=== PATIENT | female | born 1970 | race Caucasian/White ===

== ENCOUNTER 2019-12-05 14:59 | Outpatient (CLI) | payer OTHER, SELFPAY ==
--- NOTE | ~2019-12-05 | MM_ITS ---
EXAMINATION: MM screening hilario BI w kevin HISTORY: Screening mammogram, family history of breast cancer in her mother and sister. TECHNIQUE: Craniocaudal and mediolateral oblique 3-D tomosynthesis images were obtained and synthetic 2-D images were generated. CAD analysis was submitted and interpreted. COMPARISON: 02/25/2019, 05/15/2017, 05/13/2016 BREAST PARENCHYMAL COMPOSITION: The breasts are almost entirely fatty. FINDINGS: RIGHT BREAST: There is possible architectural distortion middle third of the upper outer quadrant of the breast. LEFT BREAST: There is no evidence of suspicious mass, calcification, or architectural distortion to s uggest malignancy. There has been no significant interval change. IMPRESSION: 1. Possible right breast architectural distortion. 2. Additional mammographic views and possible breast ultrasound are recommended. BI-RADS Category 0: Incomplete: Needs additional imaging evaluation. Reviewed, dictated and finalized at location A. IMPRESSION: 1. Possible right breast architectural distortion. 2. Additional mammographic views and possible breast ultrasound are recommended . BI-RADS Category 0: Incomplete: Needs additional imaging evaluation.
--- NOTE | ~2019-12-05 | XR_ITS ---
EXAMINATION: XR knee LT min 4V DATE: 12/05/2019 19:33 INDICATION: Left knee pain TECHNIQUE: Weight bearing anteroposterior and Sun, sunrise, and flexed lateral views of the lef t knee were obtained COMPARISON: None. FINDINGS: Alignment is normal. No fracture. Joint spaces appear relatively preserved but with tiny marginal os teophytes along the patella and medial lateral tibial plateaus consistent with at least minimal trico mpartmental osteoarthritis. No left knee joint effusion. Soft tissues are unremarkable. IMPRESSION: 1. Minimal tricompartmental osteoarthritis at the left knee. No evident acute osseous abnormality. Reviewed, dictated and finalized at location A. IMPRESSION: 1. Minimal tricompartmental osteoarthritis at the left knee. No evident acute o sseous abnormality.
== END 2019-12-05 15:00 | disposition home or self-care (01) ==
LOC: ANHIMG 15:02
PROVIDERS: PCP Family Medicine; Visit Provider Family Medicine
DX: Z12.31 Encounter for screening mammogram for malignant neoplasm of breast (principal); M25.562 Pain in left knee; R92.8 Other abnormal and inconclusive findings on diagnostic imaging of breast
CPT/HCPCS: 73564; 77063; 77067

== ENCOUNTER 2020-03-17 12:11 | Outpatient (CLI) | payer OTHER, SELFPAY ==
--- NOTE | ~2020-03-17 | MM_ITS ---
EXAMINATION: MM diagnostic mammo unilat RT HISTORY: Possible architectural distortion of the right breast on screening mammogram TECHNIQUE: Additional 3-D tomosynthesis images of the right breast were performed and synthetic 2-D i mages were generated. CAD analysis was submitted and interpreted. COMPARISON: 12/05/2019, 02/25/2019, 05/15/2017 BREAST PARENCHYMAL COMPOSITION: The breasts are almost entirely fatty. FINDINGS: There appears to be subtle persistent architectural distortion in the middle third of the u pper breast on the mediolateral view however this is not definitely identified on the remaining spot compression views. Further evaluation with right breast ultrasound is recommended. IMPRESSION: 1. Possible architectural distortion as described above. 2. Further evaluation with targeted right breast ultrasound is recommended. BI-RADS Category 0: Incomplete: Needs additional imaging evaluation. Reviewed, dictated and finalized at location A.
== END 2020-03-17 12:12 | disposition home or self-care (01) ==
PROVIDERS: PCP Family Medicine; Visit Provider Family Medicine
DX: R92.8 Other abnormal and inconclusive findings on diagnostic imaging of breast (principal)
CPT/HCPCS: 77065

== ENCOUNTER 2020-03-23 13:49 | Outpatient (CLI) | payer OTHER, SELFPAY ==
--- NOTE | ~2020-03-23 | US_ITS ---
US breast RT limited INDICATION: Follow-up right breast asymmetry TECHNIQUE: Dedicated Limited right breast ultrasound COMPARISON: Mammogram dated 03/17/2020 FINDINGS: The right breast is composed of normal heterogeneous echotexture without focal solid or cys tic mass. IMPRESSION: 1: Normal right breast ultrasound. Short-term follow-up diagnostic right mammogram recommended in 3 m [facility]. BI-RADS CATEGORY 3-PROBABLY BENIGN FINDING RECOMMENDATION: Six-month follow-up diagnostic right mammogram recommended. Reviewed, dictated and finalized at location A. IMPRESSION: 1: Normal right breast ultrasound. Short-term follow-up diagnostic right mammog quan recommended in 3 months. BI-RADS CATEGORY 3-PROBABLY BENIGN FINDING RECOMMENDATION: Six-month follow-up diagnostic right mammogram recommended.
== END 2020-03-23 13:50 | disposition home or self-care (01) ==
PROVIDERS: PCP Family Medicine; Visit Provider Family Medicine
DX: R92.8 Other abnormal and inconclusive findings on diagnostic imaging of breast (principal)
CPT/HCPCS: 76642

== ENCOUNTER 2020-04-18 06:47 | Outpatient (NON) | payer OTHER, SELFPAY ==
[2020-04-19 13:10] LABS: SARS-CoV-2 RNA PCR Negative
== END 2020-04-18 06:48 ==
LOC: ANHCOVIDDT 06:55
PROVIDERS: PCP Family Medicine; Visit Provider Family Medicine
DX: Z20.828 Contact with and (suspected) exposure to other viral communicable diseases (principal); R05 Cough
CPT/HCPCS: 87635; C9803; U0003

== ENCOUNTER 2020-09-23 16:17 | Inpatient (IN) | payer OTHER, SELFPAY ==
[2020-09-23] VITALS (7 sets, daily range): BP systolic 117–149; BP diastolic 78–87; PULSE 89–104; RESP 15–22; TEMP 36.1–36.4; O2SAT 94–100; BMI 50.1
--- NOTE | ~2020-09-23 | XR_ITS ---
EXAMINATION: XR chest 2V DATE: 09/23/2020 17:38 INDICATION: Shortness of breath and cough TECHNIQUE: PA and lateral views of the chest are obtained. COMPARISON: None available FINDINGS: The lungs are free of acute opacities. There is no pleural effusion or pneumothorax. The ca rdiomediastinal silhouette is normal. There is mild thoracic spondylosis. IMPRESSION: 1. No acute cardiopulmonary abnormality. Reviewed, dictated and finalized at location A.
--- NOTE | 2020-09-23 16:55 | ECG_ITS ---
Measurements Intervals [place] Rate: 99 P: 64 NV: 133 QRS: 9 QRSD: 104 T: 206 QT: 393 QTc: 506 Interpretive Statements SINUS RHYTHM ATRIAL AND VENTRICULAR PREMATURE COMPLEXES DELAYED PRECORDIAL R/S TRANSITION LEFT VENTRICULAR HYPERTROPHY AND ST-T CHANGE ST-T WAVE ABNORMALITY IN ANTERAOLAT/INF LEADS- CONSIDER ISCHEMIA ABNORMAL ECG Electronically Signed On 09-23-2020 19:16:31 CDT by Demario Pastrana D.O.
--- NOTE | 2020-09-23 16:56 | ED.SOB ---
HPI - SOB/Dyspnea General Chief Complaint: Shortness of Breath/Dyspnea Stated Complaint: sob 1 week, hx asthma Time Seen by Provider: 09/23/20 16:51 Source: patient Mode of arrival: ambulatory Limitations: no limitations History of Present Illness HPI Narrative: Patient is a 50-year-old female complaining of shortness of breath accompanied by cough, nonproductive x1 week. Patient states that her shortness of breath is with exertion. Patient states that she has a history of asthma. Patient denies any chest pain, abdominal pain, nausea, vomiting, diaphoresis, nasal congestion, fever or chills. Related Data Allergies Allergy/AdvReac Type Severity Reaction Status Date / Time aspirin Allergy Unknown Hives Verified 09/23/20 16:33 cephalexin Allergy Unknown Swelling Verified 09/23/20 16:33 naproxen Allergy Hives Verified 09/23/20 16:33 Review of Systems Review of Systems: All systems reviewed & are unremarkable except as noted in HPI and below Constitutional: Constitutional: Denies body ache(s), Denies chills, Denies excessive sweating, Denies fatigue, Denies fever(s), Denies headache(s), Denies lethargy, Denies malaise, Denies weakness and Denies weight loss Eyes: Eyes: Denies blurry vision, Denies change in vision and Denies loss of vision ENT: Denies dizziness, Denies ear discharge, Denies headache(s), Denies lip swelling, Denies epistaxis, Denies nasal congestion, Denies neck pain, Denies throat swelling and Denies tongue swelling Cardiovascular: Cardiovascular: Denies chest pain, Denies chest pain at rest, Denies chest pain with activity, Denies diaphoresis, Denies rapid heart rate, Denies edema, Denies irregular heart rhythm, Denies lightheadedness, Denies palpitations, Denies dyspnea and Denies dyspnea on exertion Respiratory: Respiratory: Denies chest congestion and Denies hemoptysis Gastrointestinal: Gastrointestinal: Denies abdominal pain, Denies melena, Denies hematochezia, Denies diarrhea, Denies nausea, Denies vomiting and Denies hematemesis Musculoskeletal: Musculoskeletal: Denies abnormal gait, Denies deformity, Denies joint swelling, Denies limited range of motion, Denies neck pain and Denies numbness Neurologic: Denies Abnormal speech present, Denies abnormal gait, Denies confusion, Denies dizziness, Denies headache(s), Denies focal weakness, Denies loss of vision, Denies numbness, Denies Other visual disturbances, Denies Sensory deficit (Neuro) and Denies weakness Psychiatric: Psychiatric: Denies confusion, Denies depression, Denies auditory hallucinations, Denies homicidal ideation and Denies suicidal ideation Endocrine: Endocrine: Denies cold intolerance, Denies excessive sweating, Denies fatigue, Denies heat intolerance and Denies palpitations Hematologic/Lymphatic: Hematologic/Lymphatic: Denies easy bleeding and Denies easy bruising Allergic/Immunologic: Allergic/Immunologic: Denies lip swelling, Denies throat swelling and Denies tongue swelling PMFSH Family History Family History Mother Patient's mother is in good health Father Family history of heart disease in male family member before age 55 Patient's father is Other Cerebrovascular accident Family history of arthritis Family history of seizure disorder Social History Social History Smoking status: Never smoker Alcohol intake: never Gender identity (if verbalized by the patient): Female Exam Const: General: cooperative, comfortable, no acute distress, well developed, alert and awake; No confusion Orientation/consciousness: oriented to person, oriented to place, oriented to time, patient oriented x3 and No confusion Limitations: no limitations HENMT: Head: normal to inspection, normocephalic and atraumatic Ears: hearing grossly normal bilaterally, TM normal on the right and TM normal on the left General nos
[2020-09-23] MEDS: IPRATROPIUM BR 0.02% INH SOLN 0.5 MG/2.5 ML VIAL INHALATION (17:08)
[2020-09-23] MEDS: ALBUTEROL SULFATE NEB 2.5 MG/0.5 ML INH 5 MG INHALATION (17:08)
[2020-09-23 17:22] LABS: Alveolar/Arterial O2 Gradient 35.2 mmHg; Base Excess ABG -3.1 mEq/l (+/-2.0); Carboxyhemoglobin 1.3 % THb (0-2.0); Device ROOM AIR; Fractional Inspired Oxygen 21 %; HCO3 ABG 19.1 mEq/l (22.0-26.0); Methemoglobin ABG 0.4 %THb (0-1.5); Oxygen Content ABG 21.1 %vol (16.0-22.0); Oxygen Saturation ABG 96.7 % (95.0-100.0); Oxyhemoglobin 94.3 % THb (90.0-100.0); PCO2 ABG 27.7 mmHg (35.0-45.0); PO2 ABG 81.4 mmHg (80.0-100.0); PO2 FiO2 Ratio Arterial Blood 3.88 %; Site Drawn LEFT BRACHIAL; Total Hemoglobin 15.9 g/dL (12.0-18.0); pH ABG 7.457 (7.350-7.450)
[2020-09-23 18:02] LABS: Basophils Percent Auto 0.3 % (0.2-1.2); Eosinophils Percent Auto 0.1 % (0-4.4); Hematocrit 47.7 % (37.0-47.0); Hemoglobin 15.9 g/dL (12.0-15.0); Immature Granulocyte Absolute 0.02 K/mm3 (0.00-0.031); Immature Granulocyte Percent A 0.2 % (0-0.5); Lymphocytes Absolute Auto 1.22 K/mm3 (0.9-3.2); Lymphocytes Percent Auto 13.9 % (18.3-44.2); Mean Corpuscular HGB Conc 33.3 g/dl (32-36); Mean Corpuscular Hemoglobin 30.9 pg (26-34); Mean Corpuscular Volume 92.6 fl (80-100); Mean Platelet Volume 8.9 fl (7.4-10.4); Monocytes Absolute Auto 0.2 K/mm3 (0.1-0.6); Monocytes Percent Auto 1.9 % (2.6-8.5); Neutrophils Absolute Auto 7.3 K/mm3 (1.3-6.7); Neutrophils Percent Auto 83.6 % (45.5-73.1); Platelet Count Result 273 k/mm3 (150-375); Red Blood Count 5.15 M/mm3 (4.2-5.4); Red Cell Distribution Width 13.4 % (11.5-14.5); White Blood Count 8.8 K/mm3 (4.5-10.0)
[2020-09-23 18:25] LABS: D Dimer 0.47 ug/mL (<0.48)
[2020-09-23] MEDS: methylPREDNISolone SOD SUCC 125 MG VIAL IV PUSH (18:41)
[2020-09-23 18:46] LABS: Anion Gap 8 mmol/L (8-16); Blood Urea Nitrogen 18 mg/dL (7-17); Calcium 9.3 mg/dL (8.4-10.2); Carbon Dioxide 22 mmol/L (22-30); Chloride 109 mmol/L (98-107); Estimated CRCL calculation 57 ml/min; Estimated Glomerular Filt Rate 52; Glucose 121 mg/dL (65-105); Potassium 4.2 mmol/L (3.4-5.0); Sodium 139 mmol/L (137-145)
[2020-09-23 19:08] LABS: NT Pro B Type Natriuretic Pept 11400 PG/ML (5-100); Troponin I 0.085 ng/mL (0.000-0.034)
[2020-09-23] MEDS: ENOXAPARIN 100 MG/ML SYRINGE SUB-Q (19:51)
--- NOTE | 2020-09-23 20:25 | PC.NURSE ---
Called to give report, was told by Yaneli that Allison was in a room and would call me back.
--- NOTE | 2020-09-23 20:55 | ADMGEN ---
This patient, Varun Sanabria, was admitted to IMU Room 200-01. Patient/family oriented to hospital policies and general routines including ID bracelet, bed and alarms, visiting hours, pain management, procedures, bathroom and other care routines, personal items, smoking policy, room service/diet, and visiting hours. Information on how to activate the Rapid Response Team has been discussed. Patient/Family are encouraged to report perceived risks to care and to ask questions if they do not understand what they are told or what they should do. Ina SAHU Arrived [id number]
[2020-09-23] MEDS: FUROSEMIDE INJ 40 MG/4 ML VIAL IV PUSH (22:54)
[2020-09-23 23:10] LABS: Troponin I 0.092 ng/mL (0.000-0.034)
[2020-09-24] VITALS (15 sets, daily range): BP systolic 104–150; BP diastolic 74–98; PULSE 53–100; RESP 16–20; TEMP 35.7–36.7; O2SAT 92–98
--- NOTE | 2020-09-24 | ECHO_ITS ---
Patient Info Name: Varun Sanabria Age: 50 years : 1970 Gender: Female Ht: 61 in Wt: 265 lbs BSA: 2.35 m2 HR: 81 bpm BP: 121 / 94 mmHg Technical Quality: Good Exam Date: 09/24/2020 7:58 AM Exam Location: [facility] Patient Status: Inpatient Admit Date: 09/23/2020 Staff Ordering Physician: Namita Glover DO Access Manager: Coco Ramos RDCS Attending Provider: Namita Glover DO Referring Physician: Adalberto HELTON; Exam Type: CA echo doppler color flow Study Info Indications R06.00 - Dyspnea, unspecified Complete two-dimensional, color flow and Doppler transthoracic echocardiogram is performed. Summary 1. Complete two-dimensional, color flow and Doppler transthoracic echocardiogram is performed. 2. Left ventricular chamber dimension is mildly enlarged. 3. Left ventricular systolic function is severely reduced, estimated at 20-25%. 4. The left ventricular diastolic function is abnormal. 5. E/e' 30.0 is elevated. 6. Right ventricular systolic function is reduced. 7. There is mild aortic valve sclerosis. 8. There is mild aortic valve regurgitation. 9. There is mild mitral valve regurgitation. 10. There is mild to moderate tricuspid valve regurgitation. 11. Mild pulmonary hypertension, estimated pulmonary arterial systolic pressure is 46 mmHg. 12. There is trivial pericardial effusion. Left Ventricle Left ventricular chamber dimension is mildly enlarged. Left ventricular systolic function is severely reduced, estimated at 20-25%. There is no increased left ventricular wall thickness. The left ventricular diastolic function is abnormal. E/e' 30.0 is elevated. Global longitudinal strain is abnormal at -5 %. Right Ventricle Right ventricular chamber dimension is normal. Right ventricular systolic function is reduced. Ventricular Septum Intact interventricular septum visualized by color flow imaging. Left Atria Left atrial chamber dimension is moderately enlarged. Right Atria Right atrial chamber dimension is normal. Atrial Septum Intact interatrial septum visualized by color flow imaging. Aortic Valve The aortic valve is trileaflet. There is mild aortic valve sclerosis. There is no aortic valve stenosis. There is mild aortic valve regurgitation. Pulmonic Valve The pulmonic valve is not well visualized. There is no pulmonic valve stenosis. There is no pulmonic regurgitation. Mitral Valve The mitral valve has normal leaflets. There is no mitral valve stenosis. There is mild mitral valve regurgitation. Tricuspid Valve The tricuspid valve leaflets are normal. There is no significant tricuspid valve stenosis. There is mild to moderate tricuspid valve regurgitation. Mild pulmonary hypertension, estimated pulmonary arterial systolic pressure is 46 mmHg. Pericardium/Pleural There is trivial pericardial effusion. Inferior Vena Cava Normal inferior vena cava with <50% collapse upon inspiration consistent with elevated right atrial pressure, 10 mmHg. Aorta The aortic root size at the sinus of Valsalva is normal. The prox ascending aorta size is normal. Left Ventricular Outflow Tract Name Value Normal LVOT 2D LVOT Diameter 2.0 c
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
[2020-09-24 01:25] LABS: Troponin I 0.075 ng/mL (0.000-0.034)
[2020-09-24 05:49] LABS: Anion Gap 11 mmol/L (8-16); Blood Urea Nitrogen 20 mg/dL (7-17); Calcium 9.6 mg/dL (8.4-10.2); Carbon Dioxide 22 mmol/L (22-30); Chloride 106 mmol/L (98-107); Estimated CRCL calculation 70 ml/min; Estimated Glomerular Filt Rate 58; Glucose 135 mg/dL (65-105); Magnesium 1.6 mg/dL (1.6-2.3); Potassium 3.9 mmol/L (3.4-5.0); Sodium 139 mmol/L (137-145)
--- NOTE | 2020-09-24 06:00 | ECG_ITS ---
Measurements Intervals [place] Rate: 93 P: 64 OH: 144 QRS: 18 QRSD: 109 T: 225 QT: 423 QTc: 527 Interpretive Statements SINUS RHYTHM VENTRICULAR PREMATURE COMPLEX AND FREQUENT ATRIAL PREMATURE COMPLEXES INCOMPLETE LEFT BUNDLE BRANCH BLOCK ST-T WAVE ABNORMALITY IN ANTEROLAT/INF LEADS- CONSIDER ISCHEMIA BASELINE ARTIFACT- I, II, III, AVR, AVL ABNORMAL ECG Electronically Signed On 09-24-2020 9:12:38 CDT by Demario Pastrana D.O.
[2020-09-24] MEDS: ATORVASTATIN 20 MG TABLET PO (08:44)
[2020-09-24] MEDS: ENOXAPARIN 40 MG/0.4 ML SYRINGE SUB-Q (08:44)
[2020-09-24] MEDS: LORATADINE 10 MG TABLET PO (08:44)
[2020-09-24] MEDS: MONTELUKAST SODIUM 10 MG TABLET PO (08:44)
[2020-09-24] MEDS: MAGNESIUM SULF 2 GM/WATER 50ML 2 GM/50 ML BAG IVPB (08:49)
--- NOTE | 2020-09-24 10:13 | PM.CNCAR ---
Assessment and Plan Assessment and plan (1) CHF (congestive heart failure): Qualifiers: Heart failure type: unspecified Heart failure chronicity: acute Qualified Code(s): I50.9 - Heart failure, unspecified Code(s): I50.9 - Heart failure, unspecified Status: Acute Assessment and Plan: new diagnosis. Strong family history for CHF. Chest x-ray shows mild congestion and mild cardiomegaly. Ejection fraction 20-25%. Frequent PVCs on telemetry and nonsustained VT. Patient will benefit from a LifeVest. Start losartan 25 mg daily. Start Coreg 3.125 mg b.i.d.. Increase Lasix to 40 mg IV b.i.d.. 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 Replenish magnesium. (2) Elevated troponin: Code(s): R77.8 - Other specified abnormalities of plasma proteins Status: Acute Assessment and Plan: Demand ischemia from CHF. No chest pain. Eventually will need ischemic evaluation. (3) PVC (premature ventricular contraction): Code(s): I49.3 - Ventricular premature depolarization Status: Acute Assessment and Plan: Frequent PVCs. Restart Coreg. With benefit from LifeVest. History of Present Illness History of Present Illness Consult date/time: Date of service 09/24/20 10:13 Requesting physician: Myles Fagan MD Consult reason: congestive heart failure Reason For Visit: NSTEMI Narrative: Chief complaint shortness of breath This is 50-year-old female with past medical history of asthma, obesity, hyperlipidemia, strong family history of congestive heart failure are(brother who is in 40s had CHF and had that had CHF as well), presents to the hospital chiefly complaining of shortness of breath for 1 week. Some wheezing. She thought that she has asthma exacerbation. She gets intermittent bilateral lower limb edema for several years. Denies chest pain, palpitations, dizziness, syncope. She states she could not lay flat on the bed. Chest x-ray reviewed analyzed myself shows mild cardiomegaly and mild vascular congestion. EKG reviewed analyze myself showed sinus tachycardia, diffuse ST, T-wave injury inversion, frequent PVCs and frequent premature atrial [place] [address], serum creatinine 1, serum magnesium 1.6 Troponin 0.092, 0.075 Echocardiogram done during this admission shows ejection fraction 20-25%, mild mitral aortic regurgitation, [id number] tricuspid regurgitation. Review of Systems Constitutional: Constitutional: Denies chills, Denies fever(s) and Denies poor appetite Eyes: Eyes: Denies eye discharge, Denies loss of vision, Denies eye pain and Denies photophobia ENT: Denies dizziness, Denies epistaxis, Denies nasal congestion and Denies sore throat Cardiovascular: Cardiovascular: Denies chest pain, Denies syncope, Denies pedal edema, Reports leg edema, Denies palpitations, Denies dyspnea, Denies dyspnea on exertion and Denies orthopnea Respiratory: Respiratory: Denies cough, Reports dyspnea, Reports dyspnea on exertion and Denies wheezing Gastrointestinal: Gastrointestinal: Denies abdominal pain, Denies diarrhea, Denies nausea and Denies vomiting Genitourinary: Genitourinary: Denies hematuria, Denies genital lesions and Denies dysuria Musculoskeletal: Musculoskeletal: Denies arthralgias, Denies joint swelling and Denies numbness Integumentary/Breasts: Skin/Breast: Denies pruritus and Denies rash Neurologic: Denies dizziness, Denies syncope, Denies loss of vision and Denies numbness Psychiatric: Psychiatric: Denies anxiety and Denies depression Endocrine: Endocrine: Denies cold intolerance, Denies heat intolerance and Denies palpitations Hematologic/Lymphatic: Hematologic/Lymphatic: Denies easy bleeding and Denies easy bruising Allergic/Immunologic: Allergic/Immunologic: Denies urticaria and Denies wheezing PMFSH Past Medical History Medical History (Reviewed 09/24/20 @ 10
[2020-09-24] MEDS: carvediloL 3.125 MG TABLET PO ×2 (11:16→20:28)
[2020-09-24] MEDS: LOSARTAN POTASSIUM 25 MG TABLET PO (11:16)
[2020-09-24] MEDS: FUROSEMIDE INJ 40 MG/4 ML VIAL IV PUSH ×2 (11:18→17:07)
--- NOTE | 2020-09-24 14:15 | PC.NURSE ---
This patient, Varun Sanabria, was received from IMU on 09/24/20 at 1415 Report received from Kiki SAHU. Patient/family oriented to unit policies and routines
--- NOTE | 2020-09-24 15:07 | PC.NURSE ---
This patient, Varun Sanabria, was transferred to [facility] on 09/24/20 at 1405. Personal belongings sent with patient. Report given to Kelsey. Appropriate documentation sent with patient.
--- NOTE | 2020-09-24 15:39 | PM.IMPN ---
Progress Note: A&P Assessment and Plan (1) Elevated troponin: Code(s): R77.8 - Other specified abnormalities of plasma proteins Status: Acute (2) CHF (congestive heart failure): Qualifiers: Heart failure type: unspecified Heart failure chronicity: acute Qualified Code(s): I50.9 - Heart failure, unspecified Code(s): I50.9 - Heart failure, unspecified Status: Acute (3) Asthma with exacerbation: Qualifiers: Asthma persistence: unspecified Asthma severity: unspecified severity Qualified Code(s): J45.901 - Unspecified asthma with (acute) exacerbation Code(s): J45.901 - Unspecified asthma with (acute) exacerbation Status: Acute Subjective Date/time seen: 09/24/20 15:39 Interval history: 50-year-old female with a past medical history of asthma, morbid obesity and hyperlipidemia who presented to the ER with shortness of breath. Admitted for asthma exacerbation and CHF exacerbation, pt has been non compliant to her medications. Review of Systems Review of Systems: All systems reviewed & are unremarkable except as noted in HPI and below Exam Narrative: Exam Narrative: PHYSICAL EXAM: General: Morbidly obesey Respiratory: Decreased breath sounds bilaterally, no increased work of breathing Cardiovascular: Regular rate, regular rhythm Gastrointestinal: Obese, nontender Skin: Generalized pallor, non jaundice Musculoskeletal: Pitting edema bilateral lower extremities, arthritic changes noted to the knees, no clubbing, no cyanosis Neurological: Alert and oriented, speech is clear, seems to be hard of hearing his TV is quite loud, moves all extremities equally, no localizing neurologic deficits noted on limited exam Psychiatric: Appropriate mood and affect, pleasant and cooperative : Deferred Hematologic/lymphatic: No petechiae, no bruising, no anterior cervical or submandibular lymphadenopathy Objective Data Vital Signs Vital Signs: Vital Signs - 24 hr 09/23/20 16:20 09/23/20 17:17 09/23/20 17:24 Temperature 36.1 C L Pulse Rate 104 H 100 99 Respiratory Rate 21 H 22 H 20 Blood Pressure 117/78 Pulse Oximetry 94 09/23/20 18:00 09/23/20 20:03 09/23/20 20:55 Temperature 36.4 C L Pulse Rate 98 89 99 Respiratory Rate 15 17 20 Blood Pressure 124/82 129/78 149/87 H Pulse Oximetry 96 100 96 09/23/20 22:00 09/24/20 00:00 09/24/20 02:00 Temperature 36.5 C Pulse Rate 92 100 94 Respiratory Rate 20 Blood Pressure 133/98 H Pulse Oximetry 95 09/24/20 04:00 09/24/20 06:00 09/24/20 08:00 Temperature 36.4 C L 36.4 C L Pulse Rate 89 89 94 Respiratory Rate 20 18 Blood Pressure 121/94 H 150/94 H Pulse Oximetry 97 97 09/24/20 09:28 09/24/20 10:00 09/24/20 12:00 Temperature 36.6 C Pulse Rate 95 94 Respiratory Rate 16 Blood Pressure 139/98 H Pulse Oximetry 95 98 09/24/20 15:27 Temperature 36.2 C L Pulse Rate 100 Respiratory Rate 20 Blood Pressure 123/81 Pulse Oximetry 96 Intake/Output Intake/Output: Intake & Output 09/21/20 09/22/20 09/23/20 09/24/20 23:59 23:59 23:59 23:59 Intake Total 1470 Output Total 1720 Balance -250 Meds/Results Medications: Active Medications Generic Name Dose Route Start Last Admin Trade Name Freq PRN Reason Stop Dose Admin Albuterol 5 mg 09/24/20 02:03 Albuterol Sulfate Neb 2.5 Mg/0.5 Ml Inh INHALATION Q6HRT PRN Shortness Of Breath Atorvastatin Calcium 20 mg 09/24/20 09:00 09/24/20 08:44 Atorvastatin 20 Mg Tablet PO 20 mg DAILY KRISTEN Administration Budesonide/Formoterol Fumarate 2 puff 09/24/20 20:00 Budesonide/Formoterol (*Sp) 160-4.5 Mcg 6 Gm Inh INHALATION Q12HRT [facility] Carvedilol 3.125 mg 09/24/20 11:00 09/24/20 11:16 Carvedilol 3.125 Mg Tablet PO 3.125 mg Q12HR KRISTEN Administration Enoxaparin Sodium 40 mg 09/24/20 09:00 09/24/20 08:44 Enoxaparin 40 Mg/0.4 Ml Syringe SUB-Q 40 mg DAILY KRISTEN Ad
[2020-09-24] MEDS: BUDESONIDE/FORMOTEROL (*SP) 160-4.5 MCG 6 GM INH 2 PUFF INHALATION (20:26)
[2020-09-25] VITALS (14 sets, daily range): BP systolic 99–128; BP diastolic 52–99; PULSE 60–94; RESP 16–20; TEMP 36–36.7; O2SAT 95–100
[2020-09-25] MEDS: BUDESONIDE/FORMOTEROL (*SP) 160-4.5 MCG 6 GM INH 2 PUFF INHALATION ×2 (08:42→20:03)
[2020-09-25] MEDS: LORATADINE 10 MG TABLET PO (08:43)
[2020-09-25] MEDS: ENOXAPARIN 40 MG/0.4 ML SYRINGE SUB-Q (08:44)
[2020-09-25] MEDS: MONTELUKAST SODIUM 10 MG TABLET PO (08:44)
[2020-09-25] MEDS: FUROSEMIDE INJ 40 MG/4 ML VIAL IV PUSH (08:45)
[2020-09-25] MEDS: FLUTICASONE PROPIONATE 0.05% NA SPR 16 GM BTL (*BKC) 1 SPRAY NASAL (08:45)
[2020-09-25] MEDS: ATORVASTATIN 20 MG TABLET PO (08:45)
[2020-09-25] MEDS: carvediloL 3.125 MG TABLET PO ×2 (08:52→20:03)
[2020-09-25] MEDS: LOSARTAN POTASSIUM 25 MG TABLET PO (08:52)
--- NOTE | 2020-09-25 09:01 | PM.PNCARD ---
Progress Note: A&P Additional Plan 50-year-old woman with: Congestive heart failure newly diagnosed dilated cardiomyopathy feels much better with diuresis. Vital signs are stable blood pressure is about 115 this morning. I will transition her from IV to oral furosemide. I will advance her losartan dosage to 50 mg. Anticipate discharge probably tomorrow if she is doing well on oral medications. It is her preference not to proceed with coronary angiography today as I mentioned above. There is no urgency to this obviously and it is fine to do this as an outpatient on a subsequent visit. Renzo Foreman MD [facility]( for Aileen) Subjective Date/time seen: Date of service: 09/25/20 09:01 Interval history: Follow-up visit in this 50-year-old woman with: New diagnosis of dilated cardiomyopathy presenting with congestive heart failure. Principal comorbidities morbid obesity. Patient reports to be feeling much better this morning her breathing is much more comfortable and she offers no new complaints. Long discussion with the patient about the need to perform an ischemia evaluation with a coronary angiogram at some point. It is her preference to treat this medically for a while and do that procedure as an outpatient following this discharge. Exam Const: General: comfortable and no acute distress HENMT: Mouth: Yes moist mucous membranes Eyes: Sclera: sclerae normal Pupils: Equal, round and reactive pupils present Neck: Neck: supple Other: Difficult to assess JVD given body habitus Resp: Effort & Inspection: normal respiratory effort Auscultation: clear to auscultation bilaterally Other: No rales no rhonchi no wheezing Cardio: Rate: regular rate Rhythm: regular rhythm Other: PMI not palpable. No murmur no gallop GI: GI Palp: Yes Soft to palpation Auscultation: normal bowel sounds Skin: General skin exam: normal color Neuro: Cognition (Neuro): normal cognition Extrem: Other: Normal distal pulses Objective Data Vital Signs Vital Signs: Vital Signs - 24 hr 09/24/20 09:28 09/24/20 10:00 09/24/20 12:00 Temperature 36.6 C Pulse Rate 95 94 Respiratory Rate 16 Blood Pressure 139/98 H Pulse Oximetry 95 98 09/24/20 15:27 09/24/20 16:00 09/24/20 18:00 Temperature 36.2 C L 35.7 C L Pulse Rate 100 91 81 Respiratory Rate 20 18 Blood Pressure 123/81 104/84 Pulse Oximetry 96 92 09/24/20 20:00 09/24/20 20:28 09/24/20 22:00 Temperature 36.7 C Pulse Rate 93 98 53 L Respiratory Rate 16 Blood Pressure 119/74 Pulse Oximetry 95 09/24/20 22:30 09/25/20 00:00 09/25/20 02:00 Temperature 36.7 C Pulse Rate 89 60 Respiratory Rate 16 Blood Pressure 112/71 Pulse Oximetry 95 98 09/25/20 04:00 09/25/20 05:39 09/25/20 08:52 Temperature 36.7 C Pulse Rate 76 86 90 Respiratory Rate 16 Blood Pressure 128/99 H Pulse Oximetry 99 Intake/Output Intake/Output: Intake & Output 09/22/20 09/23/20 09/24/20 09/25/20 23:59 23:59 23:59 23:59 Intake Total 1990 200 Output Total 1720 Balance 270 200 Meds/Results Medications: Active Medications Generic Name Dose Route Start Last Admin Trade Name Freq PRN Reason Stop Dose Admin Albuterol 5 mg 09/24/20 02:03 Albuterol Sulfate Neb 2.5 Mg/0.5 Ml Inh INHALATION Q6HRT PRN Shortness Of Breath Atorvastatin Calcium 20 mg 09/24/20 09:00 09/25/20 08:45 Atorvastatin 20 Mg Tablet PO 20 mg DAILY KRISTEN Administration Budesonide/Formoterol Fumarate 2 puff 09/24/20 20:00 09/25/20 08:42 Budesonide/Formoterol (*Sp) 160-4.5 Mcg 6 Gm Inh INHALATION 2 puff Q12HRT KRISTEN Administration Carvedilol 3.125 mg 09/24/20 11:00 09/25/20 08:52 Carvedilol 3.125 Mg Tablet PO 3.125 mg Q12HR KRISTEN Administration Enoxaparin Sodium 40 mg 09/24/20 09:00 09/25/20 08:44 Enoxaparin 40 Mg/0.4 Ml Syringe SUB-Q 40 mg DAILY KRISTEN Administration Ergocalciferol 50,000 unit 09/27/20 09:00 Ergoca
--- NOTE | 2020-09-25 11:05 | PM.IMPN ---
Progress Note: A&P Assessment and Plan (1) Elevated troponin: Code(s): R77.8 - Other specified abnormalities of plasma proteins Status: Acute Assessment and Plan: Seen by cardiology (2) CHF (congestive heart failure): Qualifiers: Heart failure type: unspecified Heart failure chronicity: acute Qualified Code(s): I50.9 - Heart failure, unspecified Code(s): I50.9 - Heart failure, unspecified Status: Acute Assessment and Plan: Continue t diuresis with IV lasix pt is on losartan and coreg, pt EF is 20% pt has life vest needs, to go home with life vest as per cardiology. (3) Asthma with exacerbation: Qualifiers: Asthma persistence: unspecified Asthma severity: unspecified severity Qualified Code(s): J45.901 - Unspecified asthma with (acute) exacerbation Code(s): J45.901 - Unspecified asthma with (acute) exacerbation Status: Resolved Assessment and Plan: Pt is bronchodilators And montelukast and flonase Subjective Date/time seen: 09/25/20 11:05 Interval history: 50-year-old female with a past medical history of asthma, morbid obesity and hyperlipidemia who presented to the ER with shortness of breath. Admitted for asthma exacerbation and CHF exacerbation, pt has been non compliant to her medications. Pt still sob and slightly swollen hopeful Dc tomorrow. Review of Systems Review of Systems: All systems reviewed & are unremarkable except as noted in HPI and below Exam Narrative: Exam Narrative: PHYSICAL EXAM: General: Morbidly obese Respiratory: Decreased breath sounds Cardiovascular: Regular rate, regular rhythm Gastrointestinal: Obese, nontender Skin: Generalized pallor, non jaundice Musculoskeletal: Pitting edema bilateral lower extremities Neurological: Alert and oriented, Psychiatric: Appropriate mood and affect, pleasant and cooperative : Deferred Hematologic/lymphatic: No petechiae, no bruising, no anterior cervical or submandibular lymphadenopathy Objective Data Vital Signs Vital Signs: Vital Signs - 24 hr 09/24/20 12:00 09/24/20 15:27 09/24/20 16:00 Temperature 36.6 C 36.2 C L Pulse Rate 94 100 91 Respiratory Rate 16 20 Blood Pressure 139/98 H 123/81 Pulse Oximetry 98 96 09/24/20 18:00 09/24/20 20:00 09/24/20 20:28 Temperature 35.7 C L Pulse Rate 81 93 98 Respiratory Rate 18 Blood Pressure 104/84 Pulse Oximetry 92 09/24/20 22:00 09/24/20 22:30 09/25/20 00:00 Temperature 36.7 C Pulse Rate 53 L 89 Respiratory Rate 16 Blood Pressure 119/74 Pulse Oximetry 95 95 09/25/20 02:00 09/25/20 04:00 09/25/20 05:39 Temperature 36.7 C 36.7 C Pulse Rate 60 76 86 Respiratory Rate 16 16 Blood Pressure 112/71 128/99 H Pulse Oximetry 98 99 09/25/20 08:30 09/25/20 08:52 09/25/20 10:00 Temperature 36.2 C L 36.0 C L Pulse Rate 90 90 77 Respiratory Rate 16 18 Blood Pressure 114/52 L 114/58 L Pulse Oximetry 95 97 Intake/Output Intake/Output: Intake & Output 09/22/20 09/23/20 09/24/20 09/25/20 23:59 23:59 23:59 23:59 Intake Total 1990 840 Output Total 1720 Balance 270 840 Meds/Results Medications: Active Medications Generic Name Dose Route Start Last Admin Trade Name Freq PRN Reason Stop Dose Admin Albuterol 5 mg 09/24/20 02:03 Albuterol Sulfate Neb 2.5 Mg/0.5 Ml Inh INHALATION Q6HRT PRN Shortness Of Breath Atorvastatin Calcium 20 mg 09/24/20 09:00 09/25/20 08:45 Atorvastatin 20 Mg Tablet PO 20 mg DAILY KRISTEN Administration Budesonide/Formoterol Fumarate 2 puff 09/24/20 20:00 09/25/20 08:42 Budesonide/Formoterol (*Sp) 160-4.5 Mcg 6 Gm Inh INHALATION 2 puff Q12HRT KRISTEN Administration Carvedilol 3.125 mg 09/24/20 11:00 09/25/20 08:52 Carvedilol 3.125 Mg Tablet PO 3.125 mg Q12HR KRISTEN Administration Enoxaparin Sodium 40 mg 09/24/20 09:00 09/25/20 08:44 Enoxaparin 40 Mg/0.4 Ml Syringe SUB-Q
--- NOTE | 2020-09-25 13:34 | PC.NURSE ---
On 09/25/20, the student, [Ingrid Nicole ], provided care and completed [employer] documentation on this patient. I have reviewed the student's documentation and agree with the findings.
[2020-09-26] VITALS (8 sets, daily range): BP systolic 104–115; BP diastolic 70–81; PULSE 75–93; RESP 18–20; TEMP 36.3–36.4; O2SAT 96–98
[2020-09-26] MEDS: carvediloL 3.125 MG TABLET PO (08:18)
[2020-09-26] MEDS: ATORVASTATIN 20 MG TABLET PO (08:18)
[2020-09-26] MEDS: ENOXAPARIN 40 MG/0.4 ML SYRINGE SUB-Q (08:19)
[2020-09-26] MEDS: FLUTICASONE PROPIONATE 0.05% NA SPR 16 GM BTL (*BKC) 1 SPRAY NASAL (08:19)
[2020-09-26] MEDS: FUROSEMIDE 40 MG TABLET PO (08:19)
[2020-09-26] MEDS: MONTELUKAST SODIUM 10 MG TABLET PO (08:20)
[2020-09-26] MEDS: LOSARTAN POTASSIUM 50 MG TABLET PO (08:20)
[2020-09-26] MEDS: BUDESONIDE/FORMOTEROL (*SP) 160-4.5 MCG 6 GM INH 2 PUFF INHALATION (08:21)
--- NOTE | 2020-09-26 08:21 | PM.DS ---
DS: Admitting Diagnosis Admitting Diagnosis Admitting Diagnosis: SOB DS: Discharge Diagnosis Discharge Diagnosis (1) Elevated troponin: Code(s): R77.8 - Other specified abnormalities of plasma proteins Status: Acute Assessment and Plan: Seen by cardiology pt will need outpatient heart cath pt to folow up in cardiology office in 2-4 weeks time. (2) CHF (congestive heart failure): Qualifiers: Heart failure chronicity: acute Heart failure type: unspecified Qualified Code(s): I50.9 - Heart failure, unspecified Code(s): I50.9 - Heart failure, unspecified Status: Acute Assessment and Plan: Continue to diuresis with IV lasix, transition to oral lasix. Pt is on losartan and coreg, pt EF is 20% pt has life vest needs, to go home with life vest as per cardiology. Pt has a new diagnosis of CHF systolic EF 20%. Pt to follow heart healthy diet and remain compliant to medications. (3) Asthma with exacerbation: Qualifiers: Asthma persistence: unspecified Asthma severity: unspecified severity Qualified Code(s): J45.901 - Unspecified asthma with (acute) exacerbation Code(s): J45.901 - Unspecified asthma with (acute) exacerbation Status: Resolved Assessment and Plan: Pt is inhalers And montelukast and flonase, pt does not smoke. Emphasized to use her inhalers, and follow with her PCP. Dulera changed to Symbicort due to cost and better coverage with her insurance. DS: Summary Hospital Course Hospital Course: 50-year-old female with a past medical history of asthma, morbid obesity and hyperlipidemia who presented to the ER with shortness of breath. Admitted for asthma exacerbation and CHF exacerbation, pt has been non compliant to her medications. Pt is stable for discharge with follow up with cardiology and heart cath in the future. Time Spent with Patient Time attestation: Total time spent providing and/or coordinating discharge services:40 minutes on day of discharge Exam Narrative: Exam Narrative: PHYSICAL EXAM: General: Morbidly obese Respiratory: Decreased breath sounds Cardiovascular: Regular rate, regular rhythm Gastrointestinal: Obese, nontender Skin: Generalized pallor, non jaundice Musculoskeletal: No edema of perpheries Neurological: Alert and oriented, Psychiatric: Appropriate mood and affect, pleasant and cooperative Discharge Plan Discharge Attending physician on discharge: Desiree Topete Consulting providers: Kai Cifuentes Discharging Clinician: Desiree Topete Anticipated Discharge Date/Time: 09/26/20 08:20 Patient Disposition: Home, Self-Care Activity: as tolerated Diet: heart healthy Patient Instructions: Antibiotic Form, Heart Attack (GEN), Heart Failure (DC), Asthma (IP) Stand Alone Forms: General Discharge Information Follow-up/Referrals: Kai Cifuentes MD [Physician] - [facility],Fadia Camarena MD [Primary Care Provider] - Discharge Medications: New carvedilol [Coreg] 3.125 mg Tablet 3.125 mg PO Q12HR Qty: 60 RF: 2 furosemide 40 mg Tablet 40 mg PO DAILY Qty: 60 RF: 2 losartan [Cozaar] 50 mg Tablet 50 mg PO QAM Qty: 60 RF: 2 budesonide-formoterol [Symbicort] 160-4.5 mcg/actuation Hfa Aerosol Inhaler 2 puff inhalation Q12HRT Qty: 10.2 RF: 0 Continued cyclobenzaprine 10 mg tablet 10 mg PO PRN PRN (Reason: Pain, Moderate) RF: 0 atorvastatin 20 mg tablet 20 mg PO DAILY RF: 0 cetirizine 10 mg tablet 10 mg PO DAILY RF: 0 cimetidine 400 mg tablet 400 mg PO DAILY RF: 0 famotidine 40 mg tablet 40 mg PO DAILY RF: 0 tramadol 50 mg tablet 50 mg PO QID PRN (Reason: Pain, Mild) RF: 0 montelukast 10 mg tablet 10 mg PO DAILY RF: 0 ergocalciferol (vitamin D2) [Vitamin D2] 1,250 mcg (50,000 unit) capsule 1,250 mcg PO DAILY RF: 0 albuterol sulfate [Ventolin HFA] 90 mcg/actuation HFA aerosol inhaler 90 mcg INHALAT
[2020-09-26] MEDS: LORATADINE 10 MG TABLET PO (08:50)
--- NOTE | 2020-09-26 11:43 | PM.PNCARD ---
Progress Note: A&P Assessment and Plan (1) CHF (congestive heart failure): Qualifiers: Heart failure chronicity: acute Heart failure type: unspecified Qualified Code(s): I50.9 - Heart failure, unspecified Code(s): I50.9 - Heart failure, unspecified Status: Acute Assessment and Plan: new diagnosis. Strong family history for CHF. Chest x-ray shows mild congestion and mild cardiomegaly. Ejection fraction 20-25%. Frequent PVCs on telemetry and nonsustained VT. Patient will benefit from a LifeVest. Cont losartan 25 mg daily and Coreg 3.125 mg b.i.d.. Lasix p.o. 40 mg daily. 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 Follow-up in the office with Dr. Gallagher in 4 weeks. CHF counseling performed. (2) Elevated troponin: Code(s): R77.8 - Other specified abnormalities of plasma proteins Status: Acute Assessment and Plan: Demand ischemia from CHF. not ACS. No chest pain. Eventually will need ischemic evaluation. (3) PVC (premature ventricular contraction): Code(s): I49.3 - Ventricular premature depolarization Status: Acute Assessment and Plan: Frequent PVCs. Continue Coreg. LifeVest. Subjective Date/time seen: Date of service: 09/26/20 11:43 Interval history: Follow-up visit in this 50-year-old woman with: New diagnosis of dilated cardiomyopathy presenting with congestive heart failure. She feels well. No new issues overnight. Frequent PVCs, brief nonsustained VT 3 beats in duration noted. No chest pain, dizziness, exertional dyspnea. No edema. Patient feels very well and wants to go home for Review of Systems Review of Systems: All systems reviewed & are unremarkable except as noted in HPI and below Constitutional: Constitutional: Reports as per HPI and Reports no additional constitutional complaints Eyes: Eyes: Reports as per HPI and Reports no additional eye complaints ENT: Reports system reviewed and no additional complaints, except as documented and Reports as per HPI Cardiovascular: Cardiovascular: Reports as per HPI and Reports no additional cardiovascular complaints Respiratory: Respiratory: Reports as per HPI and Reports no additional respiratory complaints Gastrointestinal: Gastrointestinal: Reports as per HPI and Reports no additional gastrointestinal complaints Genitourinary: Genitourinary: Reports no additional female genitourinary complaints and Reports as per HPI Musculoskeletal: Musculoskeletal: Reports no additional musculoskeletal complaints and Reports as per HPI Integumentary/Breasts: Skin/Breast: Reports system reviewed and no additional complaints, except as docu and Reports as per HPI Neurologic: Reports system reviewed and no additional complaints, except as documented and Reports as per HPI Psychiatric: Psychiatric: Reports no additional psychiatric complaints and Reports as per HPI Endocrine: Endocrine: Reports no additional endocrine complaints and Reports as per HPI Hematologic/Lymphatic: Hematologic/Lymphatic: Reports no additional hematologic/lymphatic complaints and Reports as per HPI Allergic/Immunologic: Allergic/Immunologic: Reports no additional allergic/immunologic complaints and Reports as per HPI Exam Const: General: cooperative, comfortable, no acute distress, alert and awake Nutritional Appearance: well nourished Orientation/consciousness: patient oriented x3 HENMT: Head: normal to inspection, normocephalic and atraumatic Ears: hearing grossly normal bilaterally General nose exam: Normal external nose present, Normal nares present and no nasal discharge noted Face and sinus: normal facial exam and no erythema Mouth: Yes moist mucous membranes, No drooling and No restricted motion Throat: uvula midline Eyes: General: appearance normal, both eyes and all related structures Alignment and Position: position normal Conjunctivae: conjunctivae normal
== END 2020-09-26 12:57 | disposition home or self-care (01) | DRG 194 ==
LOC: ANHED 19:56 → ANHIMU 20:12 → ANH2MED 09-25 00:49 → ANHIMU 09-30 10:47
PROVIDERS: Admitting Provider Internal Medicine; Emergency Provider Emergency Medicine; PCP Family Medicine; Visit Provider Family Medicine
DX: I50.21 Acute systolic (congestive) heart failure (principal); I24.8 Other forms of acute ischemic heart disease; J45.901 Unspecified asthma with (acute) exacerbation; E78.5 Hyperlipidemia, unspecified; I49.3 Ventricular premature depolarization; E66.01 Morbid (severe) obesity due to excess calories; Z68.42 Body mass index [BMI] 45.0-49.9, adult; I42.0 Dilated cardiomyopathy; I47.2 Ventricular tachycardia
CPT/HCPCS: 36415; 36600; 71046; 80048; 82375; 82805; 83050; 83735; 83880; 84484; 85025; 85380; 93005; 93306; 94640; 94762; 96365; 96372; 96374; 96375; 99285; A9270; G0378; G0379; J1650; J1940; J2930; J3475

== ENCOUNTER 2020-10-15 14:38 | Outpatient (CLI) | payer OTHER, SELFPAY ==
--- NOTE | ~2020-10-15 | MM_ITS ---
EXAMINATION: MM diagnostic hilario RT w kevin HISTORY: Possible architectural distortion reported in middle third of upper breast on screening MLO view of 03/13/2020 TECHNIQUE: ML, MLO and craniocaudal 3-D tomosynthesis images of the right breast were performed and s ynthetic 2-D images were generated. CAD analysis was submitted and interpreted. COMPARISON: 03/23/2020 limited right breast ultrasound Serial mammograms from 03/17/2020 diagnostic right mammogram including screening mammogram examination s of 12/05/2019, 05/15/20002016, 05/13/2016 BREAST PARENCHYMAL COMPOSITION: There are scattered areas of fibroglandular density. FINDINGS: Stable to diminished mild fibroglandular asymmetry on the right anteriorly in the mid to up per right breast, diminished in prominence since 05/13/2016. No suspicious mass or architectural distortion, malignant calcification, skin thickening or retractio n. IMPRESSION: 1. No mammographic evidence of malignancy 2. Routine mammographic screening is recommended BI-RADS Category 2: Benign finding(s). Reviewed, dictated and finalized at location A.
== END 2020-10-15 14:39 | disposition home or self-care (01) ==
LOC: ANHIMG 14:40
PROVIDERS: PCP Family Medicine; Visit Provider Family Medicine
DX: R92.8 Other abnormal and inconclusive findings on diagnostic imaging of breast (principal)
CPT/HCPCS: 77061; 77065; G0279

== ENCOUNTER 2023-01-27 12:22 | Emergency (ER) | payer OTHER, SELFPAY ==
[2023-01-27 12:32] VITALS: BP 126/57; PULSE 75; RESP 18; TEMP 36.4; O2SAT 100
--- NOTE | 2023-01-27 14:36 | ED.SKABFB ---
HPI - Skin/Abscess/Foreign Bdy General Chief complaint: Skin/Abscess/Foreign Body <Roseline Kwok PA-C - Last Filed: 01/27/23 14:48> Stated complaint: spider bite <Roseline Kwok PA-C - Last Filed: 01/27/23 14:48> Time Seen by Provider: 01/27/23 13:11 <Roseline Kwok PA-C - Last Filed: 01/27/23 14:48> History of Present Illness HPI narrative: 52-year-old female reports for evaluation for spider bites to her left flank. Patient states she noticed the bites approximately 3 days ago. There are 3 bites to her left flank and she reports the most inferior one is the most painful. She denies spontaneous drainage, fever, vomiting, body aches or chills. She reports a history of similar lesions that are treated with antibiotics and incision and drainage. She has an appoint with her PCP in 6 days. <Roseline Kwok PA-C - Last Filed: 01/27/23 14:48> Related Data Home medications: Home Medications Medication Instructions Recorded Confirmed albuterol sulfate 90 mcg/actuation 90 mcg inhalation QID 09/23/20 09/23/20 aerosol inhaler (Ventolin HFA) atorvastatin 20 mg tablet 20 mg PO DAILY 09/23/20 09/23/20 cetirizine 10 mg tablet 10 mg PO DAILY 09/23/20 09/23/20 cimetidine 400 mg tablet 400 mg PO DAILY 09/23/20 09/23/20 cyclobenzaprine 10 mg tablet 10 mg PO PRN PRN Pain, Moderate 09/23/20 09/23/20 ergocalciferol (vitamin D2) 1,250 1,250 mcg PO DAILY 09/23/20 09/23/20 mcg (50,000 unit) capsule (Vitamin D2) famotidine 40 mg tablet 40 mg PO DAILY 09/23/20 09/23/20 fluticasone propionate 50 50 mcg intranasal DAILY 09/23/20 09/23/20 mcg/actuation nasal spray,suspension montelukast 10 mg tablet 10 mg PO DAILY 09/23/20 09/23/20 tramadol 50 mg tablet 50 mg PO QID PRN Pain, Mild 09/23/20 09/23/20 umeclidinium 62.5 mcg/actuation 1 inh inhalation DAILY 09/23/20 09/23/20 blister powder for inhalation (Incruse Ellipta) <Roseline Kwok PA-C - Last Filed: 01/27/23 14:48> Allergies/Adverse reactions: Allergies Allergy/AdvReac Type Severity Reaction Status Date / Time aspirin Allergy Unknown Hives Verified 01/27/23 12:37 cephalexin Allergy Unknown Swelling Verified 01/27/23 12:37 naproxen Allergy Hives Verified 01/27/23 12:37 <Roseline Kwok PA-C - Last Filed: 01/27/23 14:48> Review of Systems Review of Systems: CONSTITUTIONAL: Denies fever, chills EYES: Denies visual changes, redness, or discharge. ENT: Denies rhinorrhea, congestion, sore throat, or otalgia. CARDIOVASCULAR: Denies chest pain, palpitations, or edema. RESPIRATORY: Denies cough or dyspnea. GASTROINTESTINAL: Denies abdominal pain, nausea, vomiting, or diarrhea. GENITOURINARY: Denies dysuria or hematuria. SKIN: See HPI MUSCULOSKELETAL: Denies back pain, joint pain, or myalgia. NEUROLOGIC: Denies headache, numbness, dizziness, or weakness. PSYCHIATRIC: Denies anxiety or depression. <Roseline Kwok PA-C - Last Filed: 01/27/23 14:48> [facility] Past Medical History Medical History: Medical History Asthma Chronic back pain GERD (gastroesophageal reflux disease) Hyperlipidemia Osteoarthritis Vitamin D deficiency <Roseline Kwok PA-C - Last Filed: 01/27/23 14:48> Surgical History Surgical History: Surgical History Status post cataract extraction of both eyes with insertion of intraocular lens (~2018) <Roseline Kwok PA-C - Last Filed: 01/27/23 14:48> Family History Family History: Family History Mother Heart disease Father Acute myocardial infarction Family history of heart disease in male family member before age 55 Sibling Family history of heart disease in male family member before age 55 Other Cerebrovascular accident Family history of arthritis Family history of seizure disord
== END 2023-01-27 15:08 | disposition home or self-care (01) ==
PROVIDERS: Emergency Provider Physician Assistant; PCP Family Medicine
DX: L98.9 Disorder of the skin and subcutaneous tissue, unspecified (principal); E78.5 Hyperlipidemia, unspecified
CPT/HCPCS: 99281

== ENCOUNTER 2023-06-13 12:13 | Emergency (ER) | payer OTHER, SELFPAY ==
--- NOTE | ~2023-06-13 | CT_ITS ---
EXAMINATION: CT abdomen pelvis w con DATE: 06/13/2023 15:55 INDICATION: Abdomen pain. Elevated lipase. TECHNIQUE: Computed tomography (CT) of the abdomen and pelvis was performed with 100 cc Omnipaque 350 intravenous contrast. The dose-length product was 1473.14 mGy-cm. Automated exposure control and ite rative reconstruction technique were employed. COMPARISON: None. FINDINGS: There are patchy groundglass attenuation in both lungs with mosaic pattern. Heart size norm al. No significant pleural or pericardial effusion. Pancreas demonstrates enlargement with ill-define d margins and surrounding inflammation/fluid. There is intrahepatic and extrahepatic biliary dilatati on. No obstructing stone or mass. There is small amount of free fluid in the pelvis. The spleen, adrenal glands and kidneys are unremarkable. Nonobstructive bowel gas pattern. There is d iffuse bladder wall thickening. Mild dextrocurvature of the lumbar spine. IMPRESSION: 1. Acute pancreatitis. Intrauterine extrahepatic biliary dilatation. Consider correlation with MRCP. 2: Diffuse patchy groundglass attenuation of both lungs with mosaic pattern. Differential diagnosis i ncludes small airway disease, edema and pneumonia. Reviewed, dictated and finalized at location L. LATE INSPECTOR IMPRESSION: 1. Acute pancreatitis. Intrauterine extrahepatic biliary dilatation. Consider c orrelation with MRCP. 2: Diffuse patchy groundglass attenuation of both lungs with mosaic pattern. Di fferential diagnosis includes small airway disease, edema and pneumonia.
[2023-06-13 12:53] VITALS: BP 102/44; PULSE 89; RESP 16; TEMP 36.4; O2SAT 94
--- NOTE | 2023-06-13 12:58 | ED.ABDPAIN ---
HPI - Abdominal Pain General Chief Complaint: Abdominal Pain <Lainey Bowie APRN - Last Filed: 06/13/23 15:22> Stated Complaint: abd pain <Lainey Bowie APRN - Last Filed: 06/13/23 15:22> Time Seen by Provider: 06/13/23 17:48 <Lainey Bowie APRN - Last Filed: 06/13/23 15:22> Source: patient <Lainey Bowie APRN - Last Filed: 06/13/23 15:22> RN notes reviewed <Keshia Willams MD - Last Filed: 06/13/23 22:45> Mode of arrival: ambulatory <Lainey Bowie APRN - Last Filed: 06/13/23 15:22> Limitations: no limitations <Lainey Bowie APRN - Last Filed: 06/13/23 15:22> History of Present Illness HPI narrative: Patient is a 52-year-old female with past medical history as noted below presents emergency department today ambulatory with a steady gait for evaluation of nausea, vomiting diarrhea, pain with urination, urinary odor. She states she has a history of getting UTIs and feels like she has 1 now. Her symptoms been present about 4 days. She states any time she tries to drink anything she throws it up. Denies any chest pain, shortness of breath, dizziness, flank pain. Denies any known exposure to anybody with similar illness. <Lainey Bowie APRN - Last Filed: 06/13/23 15:22> Related Data Home Medications: Home Medications Medication Instructions Recorded Confirmed albuterol sulfate 90 mcg/actuation 90 mcg inhalation QID 09/23/20 09/23/20 aerosol inhaler (Ventolin HFA) atorvastatin 20 mg tablet 20 mg PO DAILY 09/23/20 09/23/20 cetirizine 10 mg tablet 10 mg PO DAILY 09/23/20 09/23/20 cimetidine 400 mg tablet 400 mg PO DAILY 09/23/20 09/23/20 cyclobenzaprine 10 mg tablet 10 mg PO PRN PRN Pain, Moderate 09/23/20 09/23/20 ergocalciferol (vitamin D2) 1,250 1,250 mcg PO DAILY 09/23/20 09/23/20 mcg (50,000 unit) capsule (Vitamin D2) famotidine 40 mg tablet 40 mg PO DAILY 09/23/20 09/23/20 fluticasone propionate 50 50 mcg intranasal DAILY 09/23/20 09/23/20 mcg/actuation nasal spray,suspension montelukast 10 mg tablet 10 mg PO DAILY 09/23/20 09/23/20 tramadol 50 mg tablet 50 mg PO QID PRN Pain, Mild 09/23/20 09/23/20 umeclidinium 62.5 mcg/actuation 1 inh inhalation DAILY 09/23/20 09/23/20 blister powder for inhalation (Incruse Ellipta) <Lainey Bowie APRN - Last Filed: 06/13/23 15:22> Allergies/Adverse Reactions: Allergies Allergy/AdvReac Type Severity Reaction Status Date / Time aspirin Allergy Unknown Hives Verified 06/13/23 18:01 cephalexin Allergy Unknown Swelling Verified 06/13/23 18:01 naproxen Allergy Hives Verified 06/13/23 18:01 <Lainey Bowie CHILDBIRTH EDUCATOR - Last Filed: 06/13/23 15:22> Review of Systems Review of Systems: CONSTITUTIONAL: Denies fever, chills, or sweats. EYES: Denies visual changes, redness, or discharge. ENT: Denies rhinorrhea, congestion, sore throat, or otalgia. CARDIOVASCULAR: Denies chest pain, palpitations, or edema. RESPIRATORY: Denies cough or dyspnea. GASTROINTESTINAL: + abdominal pain, nausea, vomiting. denies diarrhea. GENITOURINARY: +urinary odor, burning. SKIN: Denies rash or itching. MUSCULOSKELETAL: Denies back pain, joint pain, or myalgia. NEUROLOGIC: Denies headache, numbness, or weakness. PSYCHIATRIC: Denies anxiety or depression. <Lainey Bowie APRN - Last Filed: 06/13/23 15:22> All systems reviewed & are unremarkable except as noted in HPI and below <Lainey Bowie APRN - Last Filed: 06/13/23 15:22> PMFSH Past Medical History Medical History: Medical History Asthma Chronic back pain GERD (gastroesophageal reflux disease) Hyperlipidemia Osteoarthritis Vitamin D deficiency <Lainey Bowie APRN - Last Filed: 06/13/23 15:22> Surgical History Surgical History: Surgical History Status post cataract extraction of both eyes with insertion of intraocular lens (~20
[2023-06-13 14:01] LABS: Basophils Percent Auto 0.3 % (0.2-1.2); Eosinophils Absolute Auto 0.3 K/mm3 (0-0.3); Eosinophils Percent Auto 1.8 % (0-4.4); Hematocrit 43.9 % (37.0-47.0); Hemoglobin 13.9 g/dL (12.0-15.0); Immature Granulocyte Absolute 0.05 K/mm3 (0.00-0.031); Immature Granulocyte Percent A 0.3 % (0-0.5); Mean Corpuscular HGB Conc 31.7 g/dl (32-36); Mean Corpuscular Hemoglobin 29.6 pg (26-34); Mean Corpuscular Volume 93.6 fl (80-100); Mean Platelet Volume 8.6 fl (7.4-10.4); Monocytes Absolute Auto 1.2 K/mm3 (0.1-0.6); Monocytes Percent Auto 7.9 % (2.6-8.5); Neutrophils Absolute Auto 11.2 K/mm3 (1.3-6.7); Neutrophils Percent Auto 76.7 % (45.5-73.1); Platelet Count Result 359 k/mm3 (150-375); Red Blood Count 4.69 M/mm3 (4.2-5.4); Red Cell Distribution Width 13.1 % (11.5-14.5); White Blood Count 14.6 K/mm3 (4.5-10.0)
[2023-06-13 14:09] LABS: Alanine Aminotransferase 36 U/L (6-35); Albumin Level 3.9 g/dL (3.5-5.1); Alkaline Phosphatase 147 U/L (38-126); Anion Gap 9 mmol/L (8-16); Aspartate Amino Transferase 54 U/L (14-36); Blood Urea Nitrogen 16 mg/dL (7-17); Calcium 9.7 mg/dL (8.4-10.2); Carbon Dioxide 28 mmol/L (22-30); Chloride 99 mmol/L (98-107); Estimated Glomerular Filt Rate 36; Glucose 93 mg/dL (65-110); Lipase 1052 U/L (23-300); Potassium 3.9 mmol/L (3.4-5.0); Sodium 136 mmol/L (137-145)
[2023-06-13 14:38] LABS: Influenza A QL RT-PCR Negative (Negative); Influenza B QL RT-PCR Negative (Negative); SARS-CoV-2 RNA PCR Negative (Negative)
[2023-06-13 18:25] VITALS: BP 122/74; PULSE 81; RESP 18
== END 2023-06-13 18:25 | disposition left against medical advice (07) ==
PROVIDERS: Nurse Practitioner; Emergency Provider General Practice; PCP Family Medicine
DX: K85.90 Acute pancreatitis without necrosis or infection, unspecified (principal); J45.909 Unspecified asthma, uncomplicated; K21.9 Gastro-esophageal reflux disease without esophagitis; E78.5 Hyperlipidemia, unspecified; E55.9 Vitamin D deficiency, unspecified; Z79.51 Long term (current) use of inhaled steroids; Z20.822 Contact with and (suspected) exposure to COVID-19
CPT/HCPCS: 36415; 74177; 80053; 83690; 85025; 87636; 99284; Q9967

== ENCOUNTER 2024-11-23 06:50 | Emergency (ER) | payer OTHER, SELFPAY ==
[2024-11-23] VITALS (13 sets, daily range): BP systolic 104–128; BP diastolic 53–88; PULSE 86–107; RESP 13–30; TEMP 36.4; O2SAT 83–100
--- NOTE | ~2024-11-23 | XR_ITS ---
EXAMINATION: XR chest 2V DATE: 11/23/2024 08:18 INDICATION: Shortness of breath TECHNIQUE: frontal and lateral views of the chest were obtained. COMPARISON: Chest radiograph dated 09/23/2020 FINDINGS: The lungs remain clear with no focal airspace opacities, pulmonary edema, pleural effusion or pneumot horax. The cardiomediastinal silhouette is within normal limits for AP technique. Dual lead pacemaker /AICD seen with leads projecting over the expected locations of the right atrium and right ventricle. IMPRESSION: 1. No acute cardiopulmonary disease. Reviewed, dictated and finalized at location A.
--- NOTE | 2024-11-23 07:35 | ECG_ITS ---
Test Date: 2024-11-23 07:47:42 Measurements Intervals [place] Rate: 93 P: 0 [place]: 0 QRS: 13 QRSD: 142 T: 179 QT: 423 QTc: 529 Interpretive Statements ATRIAL FIBRILLATION WITH ATRIAL AND VENTRICULAR PREMATURE COMPLEXES LEFT BUNDLE BRANCH BLOCK BASELINE ARTIFACT- I, II, AVR, AVL, AVF, V1-V6 ABNORMAL ECG No previous ECG available for comparison Electronically Signed On 11-23-2024 08:14:21 CDT by Demario Pastrana D.O.
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
[2024-11-23 09:24] LABS: Alanine Aminotransferase 15 U/L (6-35); Albumin Level 4.1 g/dL (3.5-5.1); Alkaline Phosphatase 91 U/L (38-126); Aspartate Amino Transferase 29 U/L (14-36); Bilirubin,Total 2.4 mg/dL (0.2-1.3); Blood Urea Nitrogen 26 mg/dL (7-17); Calcium 9.8 mg/dL (8.4-10.2); Chloride 101 mmol/L (98-107); Estimated CRCL calculation 27 ml/min; Estimated Glomerular Filt Rate 23; Glucose 96 mg/dL (65-110); Potassium 4.2 mmol/L (3.4-5.0); Sodium 136 mmol/L (137-145); Total Protein 7.9 g/dL (6.3-8.2)
[2024-11-23 09:29] LABS: Basophils Absolute Auto 0.1 K/mm3 (0.0-0.1); Eosinophils Absolute Auto 0.5 K/mm3 (0-0.3); Eosinophils Percent Auto 7.3 % (0-4.4); Hematocrit 44.7 % (37.0-47.0); Hemoglobin 13.6 g/dL (12.0-15.0); Immature Granulocyte Absolute 0.02 K/mm3 (0.00-0.031); Immature Granulocyte Percent A 0.3 % (0-0.5); Lymphocytes Absolute Auto 1.86 K/mm3 (0.9-3.2); Lymphocytes Percent Auto 29.7 % (18.3-44.2); Mean Corpuscular HGB Conc 30.4 g/dl (32-36); Mean Corpuscular Hemoglobin 28.8 pg (26-34); Mean Corpuscular Volume 94.7 fl (80-100); Mean Platelet Volume 9.1 fl (7.4-10.4); Monocytes Absolute Auto 0.6 K/mm3 (0.1-0.6); Monocytes Percent Auto 9.3 % (2.6-8.5); Neutrophils Absolute Auto 3.3 K/mm3 (1.3-6.7); Neutrophils Percent Auto 52.4 % (45.5-73.1); Platelet Count Result 172 k/mm3 (150-375); Red Blood Count 4.72 M/mm3 (4.2-5.4); White Blood Count 6.3 K/mm3 (4.5-10.0)
[2024-11-23 09:34] LABS: NT Pro B Type Natriuretic Pept 24400 pg/mL (19.9-100)
--- NOTE | 2024-11-23 09:38 | HOMEO2EVAL ---
Evaluation was performed at [facility] Home Oxygen Evaluation RC: Home Oxygen (O2) Evaluation Start: 11/23/24 09:09 Freq: ONCE Status: Active Protocol: RPE Activity Type Activity Date Activity User E-sign Co-sign Detail Recorded Client Recorded Date Recorded By Document 11/23/24 09:00 CLC [id number] 11/23/24 09:22 CLC Document 11/23/24 09:04 CLC [id number] 11/23/24 09:22 CLC Document 11/23/24 09:06 CLC [id number] 11/23/24 09:22 CLC Document 11/23/24 09:08 CLC [id number] 11/23/24 09:22 CLC Document 11/23/24 09:10 CLC [id number] 11/23/24 09:22 CLC 11/23/24 11/23/24 11/23/24 09:00 09:04 09:06 Home O2 Evaluation [Oxygen] -Test Phase Resting Exercise Exercise -Oxygen Delivery Room Air Room Air Nasal Cannula -Oxygen Flow Rate (L/min) 1 [Pulse Oximetry] -Pulse Oximetry (90-100 %) 97 83 L 85 L [Pulse Rate] -Pulse Rate (60-100 beats/min) 89 100 107 H [Evaluation] -Activity Tolerance Fair [Exercise] -Ambulation Distance (feet) 30 -Ambulation Distance (meters) 9.14 [Comments] -Home Oxygen Evaluation Comments [Charges] -Evaluation Charges O2 Evaluation by 11/23/24 11/23/24 09:08 09:10 Home O2 Evaluation [Oxygen] -Test Phase Exercise Exercise -Oxygen Delivery Nasal Cannula Nasal Cannula -Oxygen Flow Rate (L/min) 2 3 [Pulse Oximetry] -Pulse Oximetry (90-100 %) 86 L 93 [Pulse Rate] -Pulse Rate (60-100 beats/min) 105 H 96 [Evaluation] -Activity Tolerance [Exercise] -Ambulation Distance (feet) -Ambulation Distance (meters) [Comments] -Home Oxygen Evaluation Comments Pt requires 3 liters per minute with activiry. RN aware. [Charges] -Evaluation Charges
--- NOTE | 2024-11-23 10:16 | PCRCNOTE ---
Patient requires 3 liters per minute with activity. Set up home oxygen with Anabela Méndez MD notified.
--- NOTE | 2024-11-23 10:22 | PC.NURSE ---
CALLED OXYGEN DELIVERY COMPANY FOR HOME O2 SET UP. CAR WASH ATTENDANT [employer] OPERATOR WILL GIVE US A CALL BACK FOR ETA OF EQUIPMENT DELIVERY
[2024-11-23 10:24] LABS: Anion Gap 13 mmol/L (4-12); Carbon Dioxide 22 mmol/L (22-30)
[2024-11-23] MEDS: FUROSEMIDE INJ 40 MG/4 ML VIAL IV PUSH (10:35)
== END 2024-11-23 14:05 | disposition home or self-care (01) ==
PROVIDERS: Emergency Provider Emergency Medicine; PCP Family Medicine
DX: J96.11 Chronic respiratory failure with hypoxia (principal); Z99.81 Dependence on supplemental oxygen; J45.909 Unspecified asthma, uncomplicated; E78.5 Hyperlipidemia, unspecified; E55.9 Vitamin D deficiency, unspecified; M19.90 Unspecified osteoarthritis, unspecified site; K21.9 Gastro-esophageal reflux disease without esophagitis; Z96.1 Presence of intraocular lens; Z98.42 Cataract extraction status, left eye; Z98.41 Cataract extraction status, right eye; Z79.899 Other long term (current) drug therapy; I44.7 Left bundle-branch block, unspecified; I49.1 Atrial premature depolarization; I49.3 Ventricular premature depolarization
CPT/HCPCS: 36415; 71046; 80053; 83880; 85025; 93005; 96374; 99284; J1938

== ENCOUNTER 2024-11-25 23:14 | Emergency (ER) | payer OTHER, SELFPAY ==
--- OUTSIDE RECORDS SUMMARY | 2024-11-25 22:38 | XMS_ITS | Encounter Summary ---
Author Organization [facility] Healthcare Address [address] [place] [address] Care Team Providers Care Representative Government Relations Name Role Phone Soumya Araujo MD Primary Care Provider [phone] Sultan Louis Clarke MD Unavailable [phone] Encounter Details Date Type Department Care Team (Late st Contact Info) Description 11/19/[address] [place] [address] Rosette Mckeon RN Social History Tobacco Use Types Packs/Day Years Used Date Smoking Tobacco: Never Smokeless Tobacco: Never Alcohol Use Standard Drinks/Week Comments Never 0 (1 standard drink = 0.6 oz pur e alcohol) [facility] Utilities Answer Date Recorded In the past 12 months has [employer] electric, gas, oil, or water company threatened to shut off services in your home? No 09/27/2024 Social Connection and Isolation Panel [NHANES] A nswer Date Recorded In a typical week, how many times do you talk on the phone with family, friends, or neighbors? Never 09/27/2024 How often do you get together with friends or re latives? Never 09/27/2024 How often do you attend baptist or christianity serv ices? Never 09/27/2024 Do you belong to any clubs o r organizations such as baptist groups, unions, fraternal or athletic groups, or school groups? No 09/27/2024 How often do you attend meet ings of the clubs or organizations you belong to? Never 09/27/2024 Are you , , di vorced, , never , or living with a partner? 09/27/2024 AUDIT-C Answer Date Recorded Q1: How often do you have a drink containing alc ohol? Never 09/14/2022 Average Number of Drinks Not on file 023 Q3: How often do you have si x or more drinks on one occasion? Never 09/14/2022 Overall Financial Resource Strain (CARDIA) Answe r Date Recorded How hard is it for you to pa y for the very basics like food, housing, medical care, and heating? Not hard at all 09/27/2024 Hunger Vital Sign Answer Date Recorded Within the past 12 months, y ou worried that your food would run out before you got the money to buy more. Never true 09/28/19 25 Within the past 12 months, t he food you bought just didn't last and you didn't have money to get more. Never true 09/27/2024 PRAPARE - Transportation Answer Date Re corded In the past 12 months, has l ack of transportation kept you from medical appointments or from getting medications? No 09/17 In the past 12 months, has l ack of transportation kept you from meetings, work, or from getting things needed for daily living? No 09/27/2024 Housing Stability Vital Sign Answer Aaron e Recorded In the last 12 months, was t here a time when you were not able to pay the mortgage or rent on time? Patient declined 10/09/19 24 In the last 12 months, how many places have you lived? 1 10/09/2023 In the last 12 months, was t here a time when you did not have a steady place to sleep or slept in a half-way (including now)? Patient declined 10/09/2023 Housing Stability Vital Sign Answer Aaron e Recorded In the last 12 months, was t here a time when you were not able to pay the mortgage or rent on time? No 09/27/2024 In the past 12 months, how m any times have you moved where you were living? 0 09/27/2024 At any time in the past 12 m [facility], were you homeless or living in a half-way (including now)? No 09/27/2024 Personal Safety Answer Date Recorded Have you ever been in or are you currently in a harmful physical or emotional relationship or is someone making you feel afraid or unsafe? Denies 09/26/2024 Comments No Sex and Gender Information Value Date Recorded Sex Assigned at Not on file Legal Sex Female 3:29 PM [employer]REMAN Gender Identity Female 01/10/2024 9:21 AM CDT Sexual Orientation Straight 01/10/2024 9: 21 AM CDT documented as of this encounter Plan of Treatment Not on file documented as of this encounter Visit Diagnoses Not on filedocumented in this encounter Care Teams Representative Government Relations Relationship Specialty Start Date End Date Soumya Araujo MD PCP - General Decatizer 10/05/22 Sultan Louis Clarke MD [address] [place] [address] Consulting Physician Cardiovascular Disease 10/02/24 documented as of this encounter
[2024-11-25 22:39] VITALS: BP 112/69; PULSE 103; RESP 17; TEMP 36.4; O2SAT 99
--- OUTSIDE RECORDS SUMMARY | 2024-11-25 22:39 | XMS_ITS | Encounter Summary ---
Author Organization [facility] Address [address] [place] [address] Phone Care Team Providers Care Jacquard Lace Weaver Name Role Phone Fadia Carroll MD Primary Care Provider + Soumya Araujo MD Primary Care Provider [phone] Sultan Louis Clarke MD Unavailable Encounter Details Date Type Department Care Team (Latest Contact Info) Description 03/11/2022 Orders Only [facility] Scanning, Provider Social History Tobacco Use Types Packs/Day Years Used Date Smoking Tobacco: Never Smokeless Tobacco: Never Alcohol Use Standard Drinks/Week Comments Never 0 (1 standard drink = 0.6 oz pur e alcohol) AUDIT-C Answer Date Recorded Q1: How often do you have a drink containing alcohol? Never 02/18/2022 Q2: How many drinks containi ng alcohol do you have on a typical day when you are drinking? Patient does not drink Q3: How often do you have si x or more drinks on one occasion? 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 Gender Identity Female 01/10/2024 9:21 AM CDT Sexual Orientation Straight 01/10/2024 9: 21 AM CDT documented as of this encounter Plan of Treatment Not on file documented as of this encounter Procedures Procedure Name Priority Date/Time Associated Diagnosis Comments CARDIOLOGY DOCUMENT SCAN 03/11/2022 documented in this encounter Results * CARDIOLOGY DOCUMENT SCAN (03/11/2022) Anatomical Region Laterality Modality Other us Provider Scanning CV CARDIAC SERVICES PROCEDURES Final Result documented in this encounter Visit Diagnoses Not on filedocumented in this encounter Additional Health Concerns Infection Onset Date Last Indicated Resolved Time COVID: Suspected 10/06/2023 10/06/2023 10/06/2023 6:32 PM CDT Exposure, Contact Comment:09/30/24 patient resides at [facility] facility and requires CRE screening. ML 10/03/24 CRE screening result of negative. Resolved. ML 09/30/2024 09/30/2024 10/03/2024 11:11 AM CDT documented as of this encounter Care Teams Jacquard Lace Weaver Relationship Specialty Start Date End Date Fadia Carroll MD [address] [place] [address] PCP - General Family Medicine 09/23/20 10/04/22 Soumya Araujo MD [address] [place] [address] PCP - General Operations Supervisor 2Nd Shift 10/05/22 Sultan Louis Clarke MD [address] [place] [address] Consulting Physician Cardiovascular Disease 10/02/24 documented as of this encounter
--- OUTSIDE RECORDS SUMMARY | 2024-11-25 22:39 | XMS_ITS | Clinical Summary ---
Author Organization [facility] Address [address] [place] [address] Care Team Providers Care Licensed Direct Entry Midwife Name Role Phone Unavailable Primary Care Provider Unavailabl e Source Comments [facility] [employer],non-owned Affiliates and Associated Physician Practices is amultiple site organization consisting of ambulatory clinics and hospital sitesin [place], [place], [place] and [place]. This disclosure is being madepursuant to the Care Everywhere program and may not contain all information available regarding this patient. Last updated 18.[facility] [employer] Social History Tobacco Use Types Packs/Day Years Used Date Smoking Tobacco: Never Assessed Comments Unknown Sex and Gender Information Value Date Recorded Sex Assigned at Not on file Legal Sex Female 5:57 PM CDT Gender Identity Not on file Sexual Orientation Not on file Plan of Treatment Health Maintenance Due Date Last Done Comments COLOGUARD (AGES 45-75) - COL ON CA SCREENING 1968 COLON MONITORING 1968 COLONOSCOPY - COLON CA SCREENING 1968 CT COLONOGRAPHY - COLON CA SCREENING 1968 Colorectal Cancer Screening 1968 FIT - COLON CA SCREENING 1968 FLEX SIG - COLON CA SCREENING 1968 LIPID TESTING 1968 MAMMOGRAM 1968 HIV SCREENING 1983 HEPATITIS C SCREENING 06/22/1986 DTAP/TDAP/TD VACCINES (1 - Tdap) 1987 HEPATITIS B VACCINE (1 of 3 - 19+ 3-dose series) 1987 PNEUMOCOCCAL VACCINE 50+ (1 of 1 - PCV) 2018 ZOSTER VACCINE (1 of 2) 2018 COVID-19 VACCINE ( - 2023-2 5 season) 2024 DEPRESSION SCREENING 06/19/2024 INFLUENZA VACCINE (Season Ended) 2025 HIB VACCINE Aged Out No longer eligi ble based on patient's age to complete this topic HPV VACCINE Aged Out No longer eligi ble based on patient's age to complete this topic MENINGOCOCCAL (Group B) VACC INE SHARED DECISION-MAKING Aged Out No longer eligibl e based on patient's age to complete this topic MENINGOCOCCAL GROUPS A/C/Y/W VACCINE Aged Out No longer eligible b ased on patient's age to complete this topic Insurance [facility]
--- OUTSIDE RECORDS SUMMARY | 2024-11-25 22:39 | XMS_ITS | CONTINUITY OF CARE DOCUMENT ---
Author Name juan martinez Address Unknown Organization [facility] Address [address] [place] [address] Phone [phone] Care Team Providers Care Java Flex Developer Name Role Phone Ria CHAVEZ, Wyatt Membreno Unavailable [phone] RADHA BENNETT MD Unavailable RADHA BENNETT MD Unavailable [phone] INSURANCE PROVIDERS Payer name Policy type / Coverage type [place] [id number] (2) Medicaid [id number]
--- OUTSIDE RECORDS SUMMARY | 2024-11-25 22:39 | XMS_ITS | Clinical Summary ---
Author Organization [facility] Virtual Care Address [address] [place] [id number] Phone Care Team Providers Care Chip Loft Worker Name Role Phone Soumya Araujo MD Primary Care Provider [phone] Sultan Louis Cao MD Unavailable [phone] Allergies Active Allergy Reactions Criticality Noted Date Comments Aspirin Shortness of breath High 07/04/2022 Cephalexin Shortness of breath,Hives,Other (See comments) High 03/10/2015 Breathing Difficulty Cinnamon Shortness of breath High 12/05/2017 Aggravates her asthma Naproxen Hives Medium 06/19/2020 Medications atorvastatin (LIPITOR) 20 mg tabletIndicatio ns:hyperlipidem ia Take 1 tablet (20 mg total) by mouth nightly 1 Active albuterol HFA (PROVENTIL HFA,VENTOLIN HFA,PROAIR HFA) 90 mcg/actuation inhaler Inhale 2 puffs every 8 (eight) hours as needed for wheezing Active furosemide (LASIX) 40 mg tablet Take 1 tablet (40 mg total) by mouth daily 4 Active vit Z-H-dbccvn-zinc -lutein 226-90-0.8-5 mg capsule Take 1 capsule by mouth 2 (two) times a day Preservision Active guaiFENesin (ROBITUSSIN) syrup 100 mg/5 mL Take 10 mL (200 mg total) by mouth every 4 (four) hours as needed for cough Active traMADoL (ULTRAM) 50 mg tablet Take 1 tablet (50 mg total) by mouth every 12 (twelve) hours as needed for pain (moderate to severe pain.) Active spironolactone (ALDACTONE) 25 mg tablet Take 0.5 tablets (12.5 mg total) by mouth daily 15 tablet 5 Active empagliflozin (JARDIANCE) 10 mg tabletIndicatio ns:Heart Failure Take 1 tablet (10 mg total) by mouth daily 30 tablet 5 Active carvediloL (COREG) 6.25 mg tablet Take 0.5 tablets (3.125 mg total) by mouth 2 (two) times a day with meals 30 tablet 5 Active Active Problems Problem Noted Date Diagnosed Date Reduced mobility 10/03/2024 Hypotension due to drugs 10/03/2024 Hyponatremia 10/03/2024 Nonischemic congestive cardiomyopathy 10/01/2024 Assessment & Plan (10/02/2024 3:08 PM CDT): See above plan for HFreducedEF Continue with strict I's and O's every 4-8 hours. Continue with daily weights. Continue Lasix 40 mg p.o. daily - we will need to continue diuresis as she still has evidence of fluid overload based on her elevated weights and her bilateral lower extremity edema. Continued on Spirolactone 12.5 mg daily (currently at half dose to avoid hypotension, sodium 133 today, creatinine 1.72 today. Started patient on Entresto. Currently on a half dose to avoid hypotension. Started Jardiance 10 mg daily. Continue patient on Coreg 6.25 mg BID. -->Patient has not had a formal ROBB consultation or evaluation, recommend ambulatory referral to sleep physician for that at discharge. No associated orders from this encounter found during lookback period of 72 hours. Assessment & Plan (10/01/2024 2:22 PM CDT): See above plan for HFreducedEF Continue with strict I's and O's every 4-8 hours. Continue with daily weights. Continue Lasix 40 mg p.o. daily - we will need to continue diuresis as she still has evidence of fluid overload based on her elevated weights and her bilateral lower extremity edema. Continued on Spirolactone 12.5 mg daily (currently at half dose to avoid hypotension, sodium 137 today, creatinine 1.72 today. Started patient on Entresto. Currently on a half dose to avoid hypotension. Started Jardiance 10 mg daily. Continue patient on Coreg 6.25 mg BID. -->Patient has not had a formal ROBB consultation or evaluation, recommend ambulatory referral to sleep physician for that at discharge. Mixed hyperlipidemia 10/01/2024 Assessment & Plan (10/02/2024 3:08 PM CDT): LFTs wnl. 07/22/2024 Chol 119, HDL 42, LDL 58, Trig 92. Continue the patient on atorvastatin 20 mg nightly. No associated orders from this encounter found during lookback period of 72 hours. Assessment & Plan (10/01/2024 2:22 PM CDT): LFTs wnl. 07/22/2024 Chol 119, HDL 42, LDL 58, Trig 92. Continue the patient on atorvastatin 20 mg nightly. Class 3 severe obesity in adult 10/01/2024 Assessment & Plan (10/02/2024 3:08 PM CDT): Noticed that her weight has gone up in recent months. 05/21/24 = 197 lbs. Then on 09/26/24 = 218 lbs. This could be in part due to fluid overload as well as worsening obesity. Discussed at length the importance of weight loss and increasing her exercise and activity level as well as dietary changes she could work on. Encouraged patient to talk to her PCP regarding GLP -1 medications and she said they were discussing starting Ozempic soon. Checking A1C level today. Daily weights ordered. . No associated orders from this encounter found during lookback period of 72 hours. Assessment & Plan (10/01/2024 2:22 PM CDT): Noticed that her weight has gone up in recent months. 05/21/24 = 197 lbs. Then on 09/26/24 = 218 lbs. This could be in part due to fluid overload as well as worsening obesity. Discussed at length the importance of weight loss and increasing her exercise and activity level as well as dietary changes she could work on. Encouraged patient to talk to her PCP regarding GLP -1 medications and she said they were discussing starting Ozempic soon. Checking A1C level today. Daily weights ordered. . Acute on chronic congestive heart failure 2024 Assessment & Plan (10/02/2024 3:08 PM CDT): No associated orders from this encounter found during lookback period of 72 hours. Acute on chronic heart failu re with reduced ejection fraction (HFrEF, <= 40%) and combined systolic and diastolic dysfunction 09/26/2024 Assessment & Plan (10/02/2024 3:08 PM CDT): Acute on chronic CHF exacerbation, patient already has ICD in place in left upper chest -device interrogation ordered and remains pending. HFreducedEF 15% Continue Lasix 40 mg p.o. daily - we will need to continue diuresis as she still has evidence of fluid overload based on her elevated weights and her bilateral lower extremity edema. -->Started the patient on GDMT medications Entresto, spironolactone, & Jardiance today. Continued on Spirolactone 12.5 mg daily (currently at half dose to avoid hypotension. Patient is currently tolerating GDMT sodium 133 today, creatinine 1.72 today. Started patient on Entresto. Currently on a half dose to avoid hypotension. Stopped losartan/Cozaar. Continue patient on Coreg 6.25 mg BID. Started Jardiance 10 mg daily. Monitor blood pressures as patient has been started on multiple cardiac medications. DISCHARGE instructions: Encourage patient to check her blood pressure at home after discharge. Our cardiology office reach out to the patient to set up a cardiology clinic appointment to be seen in 2-3 weeks to continue HFrEF treatment. -->Ordered ICD device interrogation. -She is currently Net + 325 ml. And will need a weight today. Nursing informed. -Ordered compression therapy which could include Rian wrap or Renny hose stockings. No associated orders from this encounter found during lookback period of 72 hours. Assessment & Plan (10/01/2024 2:22 PM CDT): Acute on chronic CHF exacerbation, patient already has ICD in place in left upper chest -device interrogation ordered and remains pending. HFreducedEF 15% Continue Lasix 40 mg p.o. daily - we will need to continue diuresis as she still has evidence of fluid overload based on her elevated weights and her bilateral lower extremity edema. -->Started the patient on GDMT medications Entresto, spironolactone, & Jardiance today. Continued on Spirolactone 12.5 mg daily (currently at half dose to avoid hypotension, sodium 137 today, creatinine 1.72 today. Started patient on Entresto. Currently on a half dose to avoid hypotension. Stopped losartan/Cozaar. Continue patient on Coreg 6.25 mg BID. Started Jardiance 10 mg daily. Monitor blood pressures as patient has been started on multiple cardiac medications. DISCHARGE instructions: Encourage patient to check her blood pressure at home after discharge. Our cardiology office reach out to the patient to set up a cardiology clinic appointment to be seen in 2-3 weeks to continue HFrEF treatment. -->Ordered ICD device interrogation. -She is currently Net + 325 ml. And will need a weight today. Nursing informed. -Ordered compression therapy which could include Rian wrap or Renny hose stockings. Atrial flutter 05/20/2024 Ventricular tachycardia 05/20/2024 Ventricular ectopy 05/20/2024 Assessment & Plan (10/02/2024 3:08 PM CDT): Consulting lacrosse coach felt this was related to the patient's sepsis. patient already has ICD in place in left upper chest. Patient denies any shocks/defibrillation. - device interrogation ordered and remains pending. Continue patient on Coreg 6.25 mg BID. Patient is on continuous telemetry. Telemetry reviewed and no further ventricular ectopy noted in the past 24 hours. No associated orders from this encounter found during lookback period of 72 hours. Assessment & Plan (10/01/2024 2:22 PM CDT): Consulting lacrosse coach felt this was related to the patient's sepsis. patient already has ICD in place in left upper chest. Patient denies any shocks/defibrillation. - device interrogation ordered and remains pending. Continue patient on Coreg 6.25 mg BID. Patient is on continuous telemetry. Telemetry reviewed and no further ventricular ectopy noted in the past 24 hours. Typical atrial flutter 11/17/2023 Paroxysmal atrial fibrillation 11/17/2023 custodial current use of anticoagulant High risk medication use 11/17/2023 ICD (implantable cardioverter-defibrillator) in place 11/17/2023 Overview (07/23/2024): [employer] 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VT, NICM w/ HFrEF, PAF, PAT . DOI 02/22/2022 Dr. Shaw Latitude remote monitoring CKD (chronic kidney disease) 09/14/2022 Assessment & Plan (10/19/2023 9:49 AM CDT): Continue to follow up BMP facility. Continue losartan. Stable. Assessment & Plan (09/15/2022 9:20 AM CDT): Cr most recently 1.3-1.5 since 02/2022, previously 1.0-1.1. -Cr stable at 1.5 -Encouraged PCP f/u for monitoring given recent uptrend VT (ventricular tachycardia) 02/18/2022 Assessment & Plan (09/15/2022 9:24 AM CDT): S/p ablation with EP -Admitted overnight for observation, no complications noted -Telemetry w/o events -Cont Amiodarone 400 -EP f/u 10/12 Chronic combined systolic an d diastolic congestive heart failure 11/12/2020 Assessment & Plan (10/19/2023 9:49 AM CDT): Stable and more compensated on current medication. Continue carvedilol furosemide and losartan. Follow weights. Assessment & Plan (09/15/2022 9:18 AM CDT): History of NICM -Does not appear in acute exacerbation -Cont home Losartan 24, Carvedilol 3.125 BID + Lasix 40 PVC's (premature ventricular contractions) 11/12 Assessment & Plan (10/19/2023 9:49 AM CDT): Stable. Follow up BMP. Awaiting admit labs. This will include electrolytes. Continue potassium supplementation and Coreg. Premature atrial contractions 11/12/2020 Morbidly obese (CMS/HCC) 11/12/2020 Essential hypertension 11/12/2020 Assessment & Plan (10/19/2023 9:49 AM CDT): Stable. Continue losartan and carvedilol Acute on chronic systolic congestive heart failu re Paroxysmal atrial flutter Assessment & Plan (10/19/2023 9:49 AM CDT): Stable and rate controlled. Continue apixaban and amiodarone. Assessment & Plan (09/14/2022 4:17 PM CDT): -Cont home Eliquis Resolved Problems Problem Noted Date Diagnosed Date Resolved Date SANDRA (acute kidney injury) Encounters Date Type Department Care Team Description 11/19/2024 Home Care Visit [address] [place] [address] Rosangela Chauhan, PT PT NON ADMIT 11/19/2024 Travel 11/19/[address] [place] [address] Rosette Mckeon RN 11/19/[address] [place] [address] Rosette Mckeon, RN 11/19/[address] [place] [address] Rosette Mckeon, ADELINA 11/19/[address] [place] [address] Rosette Mckeon, RN 11/19/[address] [place] [address] Rosette Mckeon RN 10/07/2024 TCC Subsequent Outreach [facility] [address] [place] [phone] Jorge Jack RN 09/27/2024 TCC Initial Eligibility Review [facility] [address] [place] [id number] Jorge Jack RN 09/26/2024 5:33 PM CDT - 10/02/2024 3:15 PM CDT Hospital Encounter [address] [address] Angela Kirk MD Georgiyev, Sergiy, MD Saturno Arias, Dany Jose, MD Mustafa, Saim, DO Winston, Jared Todd, MD Acute on chronic congestive heart failure, unspecified heart failure type (HCC) (Primary Dx); Acute UTI Discharge Disposition: Discharge to detention facility from Last 3 Months Immunizations Immunization Administration Dates Next Due Tdap 03/11/2022 Surgical History Surgery Date Site/Laterality Comments TUBAL LIGATION CYST REMOVAL Medical History Medical History Date Comments Hypertension Heart attack (HCC) Murmur Dizziness Hyperlipidemia Acid indigestion Cataract Bronchitis Family History Medical History Relation Name Comments Heart disease Brother Heart disease Father No Known Problems Mother Cerebral palsy Sister 1 Breast cancer Sister 2 Relation Name Status Comments Brother Alive Father (Age 50's) Mother Alive Sister 1 Alive Sister 2 Alive Social History Tobacco Use Types Packs/Day Years Used Date Smoking Tobacco: Never Smokeless Tobacco: Never Alcohol Use Standard Drinks/Week Comments Never 0 (1 standard drink = 0.6 oz pur e alcohol) [facility] Utilities Answer Date Recorded In the past 12 months has [employer] electric, gas, oil, or water [email or web address] threatened to shut off services in your home? No 09/27/2024 Social Connection and Isolation Panel [NHANES] A nswer Date Recorded In a typical week, how many times do you talk on the phone with family, friends, or neighbors? Never 09/27/2024 How often do you get together with friends or re latives? Never 09/27/2024 How often do you attend yarsani or evangelical serv ices? Never 09/27/2024 Do you belong to any clubs o r organizations such as yarsani groups, unions, fraternal or athletic groups, or [...] place to sleep or slept in a jail (including now)? Patient declined 10/09/2023 Housing Stability [...] any time in the past 12 m [facility], were you homeless or living in a jail (including now)? No 09/27/2024 Personal Safety Answer Date Recorded Have you ever been in or are you currently in a harmful physical or emotional relationship or is someone making you feel afraid or unsafe? Denies 09/26/2024 Comments No Sex and Gender Information Value Date Recorded Sex Assigned at Not on file Legal Sex Female 3:29 PM [employer] Gender Identity Female 01/10/2024 9:21 AM CDT Sexual Orientation Straight 01/10/2024 9: 21 AM CDT Obstetrics History Last Filed Vital Signs Vital Sign Reading Time Taken Comments Blood Pressure 106/60 10/02/2024 11:28 AM CDT Pulse 63 10/02/2024 11:28 AM CDT Temperature 36.3 C (97.3 F) 10/02/2024 5:38 AM CDT Respiratory Rate 18 10/02/2024 7:21 AM CDT Oxygen Saturation 97% 10/02/2024 11:28 AM CDT Inhaled Oxygen Concentration - - Weight 97.1 kg (214 lb 1.6 oz) 10/02/2024 6:00 A M CDT Height 154.9 cm (5' 1) 09/26/2024 10:57 PM CDT Body Mass Index 40.45 09/26/2024 10:57 PM CDT Plan of Treatment Health Maintenance Due Date Last Done Comments Cervical Cancer Screening 1968 Colon Cancer Screening-Colonoscopy 1968 Depression Screening 1968 Hepatitis C Screening 1968 Hepatitis B Screening 1986 Regular Well Visit/Exam 18-64 1986 Pneumococcal vaccine <65 (2 of 2 - PPSV23) 06/14/2012 04/19/2012 Zoster Vaccine (1 of 2) 2018 Breast Cancer Screening-Mammogram 05/21/2019 018, 05/21/2018 Covid-19 Vaccine (4 - 2023-2 5 season) 2024 03/23/2021, 03/23/2021, 01/15/2021, Additional history exists DTaP/Tdap/Td Vaccine (3 - Td or Tdap) 03/11/2032 03/11/2022, 10/08/2014 Influenza Vaccine Completed 04/22/2024, , 02/17/2021, Additional history exists Medical Devices Implanted Type Area [employer] Device Identifier Shelf Expiration Date Model / Serial / Lot [employer] Vascade Mvp 6-12fr Venous Closure [id number] - [id number] - [id number] Implanted:Qty: 1 on 09/14/2022 by Parminder Meadows MD at [facility] Collagen Right: Femoral [employer] 04/25/2024 800-612C -10U / [id number] 109A / [id number] 109A [employer] Vascade Mvp 6-12fr Venous Closure [id number] - [id number] - [id number] Implanted:Qty: 1 on 09/14/2022 by Parminder Meadows MD at [facility] Collagen Right: Femoral [employer] 05/30/2024 800-612C -10U / [id number] 212C / [id number] 212C [employer] Vascade Mvp 6-12fr Venous Closure [id number] - [id number] - [id number] Implanted:Qty: 1 on 09/14/2022 by Parminder Meadows MD at [facility] Collagen Left: Femoral [employer] 05/30/2024 800-612C -10U / [id number] 212C / [id number] 212C [employer] Vascade Mvp 6-12fr Venous Closure [id number] - [id number] - [id number] Implanted:Qty: 1 on 09/14/2022 by Parminder Meadows MD at [facility] Collagen Left: Femoral [employer] 05/30/2024 800-612C -10U / [id number] 212C / [id number] 212C [employer]it Angio-Seal Vip 6fr Closere Device [id number] - [id number] Implanted:Qty: 1 on 02/18/2022 by Duke Armenta MD at [facility] [employer] Kermit 11/16/2022 [id number] / / [id number] [employer] Kermit Dynagen Enduralife Easyview Hf Perspectiv 5.37x7.68cm 2 Chamber D152 - [id number] - [id number] Implanted:Qty: 1 on 02/22/2022 by Jordy Patton MD at [facility] [id number] 09/23/2023 D152 / [id number] / [employer] Kermit Fairplay 4-Front 59cm Active Fixation Lead Icd 0672 - [id number] - [id number] Implanted:Qty: 1 on 02/22/2022 by Jordy Patton MD at [facility] [employer] [facility] [id number] 09/23/2023 0672 / [id number] / [employer] Lead 7841 Endocardial Pacing Mr Is-1 Bipolar Connection 7841 - [id number] - [id number] Implanted:Qty: 1 on 02/22/2022 by Jordy Patton MD at [facility] [id number] 02/04/2024 7841 / [id number] / [employer] Tyrx Absorbable Antibacterial Envelope-Large 3.3x2.9in [id number] - [id number] Implanted:Qty: 1 on 02/22/2022 by Jordy Patton MD at [facility] [employer] [id number] / / Procedures Procedure Name Priority Date/Time Associated Diagnosis Comments EGFR Routine 10/02/2024 9:49 AM CDT MAGNESIUM Routine 10/02/2024 9:49 AM CDT PRO B-TYPE NATRIURETIC PEPTIDE Routine 10/02/2024 9:49 AM CDT COMPREHENSIVE METABOLIC PANEL Routine 10/02/2024 9:49 AM CDT HEMOGLOBIN A1C Add-On 10/01/2024 2:13 PM CDT ECG 12-LEAD Routine 10/01/2024 9:52 AM CDT ADD ON LAB TEST Add-On 10/01/2024 9:00 AM CDT LIPID PANEL Routine 10/01/2024 6:17 AM CDT PRO B-TYPE NATRIURETIC PEPTIDE Routine 10/01/2024 6:17 AM CDT PHOSPHORUS Routine 10/01/2024 6:17 AM CDT TSH Routine 10/01/2024 6:17 AM CDT MAGNESIUM Routine 10/01/2024 6:17 AM CDT EGFR Routine 10/01/2024 6:17 AM CDT COMPREHENSIVE METABOLIC PANEL Routine 10/01/2024 6:17 AM CDT ECG 12-LEAD Routine 09/30/2024 4:01 PM CDT CP-CRE CULTURE, SURVEILLANCE Routine 09/30/2024 3:45 PM CDT MAGNESIUM Routine 09/30/2024 8:20 AM CDT ADD ON LAB TEST Add-On 09/30/2024 7:14 AM CDT MAGNESIUM Routine 09/30/2024 4:08 AM CDT EGFR Routine 09/30/2024 4:08 AM CDT COMPREHENSIVE METABOLIC PANEL Routine 09/30/2024 4:08 AM CDT ECG 12-LEAD Routine 09/29/2024 10:29 AM CDT EGFR Routine 09/29/2024 6:42 AM CDT COMPREHENSIVE METABOLIC PANEL Routine 09/29/2024 6:42 AM CDT EGFR Routine 09/28/2024 10:37 AM CDT MAGNESIUM Routine 09/28/2024 10:37 AM CDT BASIC METABOLIC PANEL Routine 09/28/2024 10:37 AM CDT ECG 12-LEAD Routine 09/28/2024 9:46 AM CDT EGFR Routine 09/28/2024 8:40 AM CDT DIFFERENTIAL AUTO Routine 09/28/2024 8:4 0 AM CDT CBC WITH AUTO DIFFERENTIAL Routine 09/28/2024 8:40 AM CDT COMPREHENSIVE METABOLIC PANEL Routine 09/28/2024 8:40 AM CDT MAGNESIUM Routine 09/27/2024 2:58 PM CDT ECG 12-LEAD STAT 09/27/2024 1:10 PM CDT TRANSTHORACIC ECHO (TTE) COMPLETE W DOPPLER/CF W CONTRAST Routine 09/27/2024 11:30 AM CDT EGFR Routine 09/27/2024 4:45 AM CDT CBC WITHOUT DIFFERENTIAL Routine 09/27/2024 4:45 AM CDT HEPATIC FUNCTION PANEL Routine 4:45 AM CDT MAGNESIUM Routine 09/27/2024 4:45 AM CDT BASIC METABOLIC PANEL Routine 09/27/2024 4:45 AM CDT TROPONIN T HIGH-SENSITIVITY 6-HOUR Timed 09/26/2024 9:20 PM CDT BLOOD CULTURE STAT 09/26/2024 8:40 PM CDT BLOOD CULTURE STAT 09/26/2024 8:39 PM CDT URINALYSIS, MICROSCOPIC ONLY STAT 09/26/2024 6:27 PM CDT URINE CULTURE STAT 09/26/2024 6:27 PM CDT URINALYSIS AND REFLEX TO MICROSCOPIC AND CULTURE STAT 09/26/2024 6:27 PM CDT TROPONIN T HIGH-SENSITIVITY 2-HOUR Timed 09/26/2024 5:45 PM CDT XR CHEST 1 VIEW ED 09/26/2024 3:46 PM CDT ECG 12-LEAD STAT 09/26/2024 3:29 PM CDT PRO B-TYPE NATRIURETIC PEPTIDE STAT 09/26/2024 3:15 PM CDT EGFR STAT 09/26/2024 3:15 PM CDT DIFFERENTIAL AUTO STAT 09/26/2024 3:1 5 PM CDT TROPONIN T HIGH-SENSITIVITY SERIES (BASELINE, 2HR, 4HR, 6HR) STAT 09/26/2024 3:15 PM CDT CBC WITH AUTO DIFFERENTIAL STAT 09/26/2024 3:15 PM CDT COMPREHENSIVE METABOLIC PANEL STAT 09/26/2024 3:15 PM CDT INFLUENZA A/B, RSV, AND COVID-19 PCR STAT 09/26/2024 3:15 PM CDT from Last 3 Months Results * (ABNORMAL) eGFR (10/02/2024 9:49 AM CDT) eGFR 34(L) >=60 mL/min/1. 73 m2 Comment: Interpretive Data Reference Interval Normal >/= 90 mL/min/1.73m2 Mildly decreased* 60 - 89 mL/min/1.73m2 Mildly to moderately decreased 45 - 59 mL/min/1.73m2 Moderately to severely decreased 30 - 44 mL/min/1.73m2 Severely decreased 15 - 29 mL/min/1.73m2 Kidney Failure < 15 mL/min/1.73m2 *Relative to young adult level Estimated glomerular filtration rate is determined by the 2020 CKD-EPI equation recommended by the National Kidney Foundation (A Unifying Approach to GFR Estimation: Recommendations of the NKF-ASK Task Force on Reassessing the Inclusion of Race in Diagnosing Kidney Disease, JASN 2020). The CKD-EPI equation should not be used for patients with unstable renal function and has not been validated in children and those over 70. Current interpretive data was last reviewed 2021. Blood 10/02/2024 9:49 AM CDT 10/02/2024 10:13 AM CDT us Ethan Dominguez MD LAB BLOOD ORDERABLES Final Result Performing Organization Address City/State/ZIP Co dc Phone Number [facility] [address] [facility] Department [place] [address] * (ABNORMAL) Pro B-type natriuretic peptide (10/02/2024 9:49 AM CDT) NT-proBNP 8,982(H) <=300 pg/mL Comment: Interpretive Comments: A. Dyspnea in Acute Care Setting All Ages: < 300 pg/ml, acute heart failure unlikely. < 50 yrs: 300 - 450 pg/ml, further investigation warranted. > 450 pg/ml, acute heart failure likely. 50 - 74 yrs: 300 - 900 pg/ml, further investigation warranted. > 900 pg/ml, acute heart failure likely . > or = 75 yrs: 450 - 1800 pg/ml, further investigation warranted. > 1800 pg/ml, acute heart failure likely. B. Non-acute Setting < 75 yrs < 125 pg/ml, rules out heart failure. > or = 125 pg/ml, further investigation warranted. > or = 75 yrs < 450 pg/ml, rules out heart failure. > or = 450 pg/ml, further investigation warranted. - Knowledge of each individual patient's NT-proBNP range may be more useful than using similar cut-points for every patient. Please note that marked elevations in NT-proBNP levels may be observed in state other than Left Ventricular Congestive Failure, including: acute coronary syndromes, right heart strain/failure (including pulmonary embolism and cor pulmonale), critical illness, renal failure, as well as advanced age. - References: 1. Amanda VAN et.al. Eur Heart J. 2006:27:330-337. 2. Vilma RW, Ruddy AM. J. AM Marcello Cardiol: Cardiovasc Imag. 2009;2: 216- 225. Interpretive Data Last Revised Date: 2018. Blood 10/02/2024 9:49 AM CDT 10/02/2024 10:13 AM CDT Soumya Marcelo FLAP MAKER LAB BLOOD ORDERABLES Final Res ult Performing Organization Address [facility] Co de Phone Number [address] [address] * Magnesium (10/02/2024 9:49 AM CDT) [facility] Network Magnesium 1.8 1.4 - 2.5 mg/dL Blood 10/02/2024 9:49 AM CDT 10/02/2024 10:13 AM CDT Soumya Marcelo FLAP MAKER LAB BLOOD ORDERABLES Final Res ult Performing Organization Address [facility] de Phone Number [address] [address] * (ABNORMAL) Comprehensive metabolic panel (10/02/2024 9:49 AM CDT) Pathologist [facility] [place] Sodium 133(L) 135 - 145 mmol/L Potassium, pl 4.6 3.3 - 4.9 mmol/L [facility] Comment:Hemolyzed; Potassium value may be falsely elevated by as much as 1.0 mmol/L. Suggest redraw and reanalysis. Chloride 99 97 - 110 mmol/L [facility] CO2 24 22 - 32 mmol/L [facility] Anion gap 10 2 - 15 mmol/L [facility] BUN 29(H) 6 - 25 mg/dL [facility] Creatinine 1.72(H) 0.60 - 1.10 mg/dL [facility] Glucose 74 70 - 199 mg/dL [facility] Comment: Interpretive Data Fasting glucose >/= 126 mg/dl is diagnostic for diabetes. Fasting is defined as no caloric intake for at least 8 hours. Fasting glucose between 100 mg/dl to 125 mg/dl is diagnostic of prediabetes. In a patient with classic symptoms of hyperglycemia or hyperglycemic crisis, a random glucose >/= 200 mg/dl is diagnostic for diabetes. In the absence of unequivocal hyperglycemia, results should be confirmed by repeat testing. The classification and Diagnosis of Diabetes Diabetes Care 2021; 46: S19-S40. Current interpretive data was last revised 2022. Calcium 9.1 8.5 - 10.3 mg/dL [facility] Bilirubin, total 2.4(H) 0.1 - 1.2 mg/dL [facility] Protein, pl 6.3(L) 6.5 - 8.5 g/dL [facility] Albumin 2.9(L) 3.5 - 5.0 g/dL [facility] Alk phos 95 40 - 130 Units/L [facility] ALT 26 7 - 45 Units/L [facility] AST See Comment 10 - 45 [facility] Comment:Credited; Hemolyzed Specimen Blood 10/02/2024 9:49 AM CDT 10/02/2024 10:13 AM CDT Ethan Dominguez MD LAB BLOOD ORDERABLES Final Result [facility] [address] [facility] [place] [address] * (ABNORMAL) Hemoglobin A1c (10/01/2024 2:13 PM CDT) Hgb A1C 6.0(H) 4.0 - 5.6 % Estimated Average Glucose 126 mg/dL [facility] Comment: The ADA recommends reporting an estimated Average Glucose (eAG) with all Hemoglobin A1c results using the equation derived from a study of 507 normal and diabetic adults. Minority populations were underrepresented and children were not included. (Diabetes Care 31:3886-9553, 2008). The eAG is not equivalent to a fasting glucose. Blood 10/01/2024 2:13 PM CDT 10/01/2024 3:17 PM CDT Soumya Marcelo NP LAB BLOOD ORDERABLES Final Res ult Performing Organization Address City/[facility]/ZIP Co de Phone Number [facility] [address] [facility] Department [place] [address] * ECG 12 lead (10/01/2024 9:52 AM CDT) Ventricular Rate EKG/Min 74 BPM [facility] Atrial Rate 74 BPM [facility] NC-Interval (MSEC) 156 ms [facility] QRS-Interval (MSEC) 138 ms [facility] QT-Interval (MSEC) 470 ms [facility] QTc 521 ms [facility] R [place] 8 degrees [facility] T [place] 230 degrees [facility] Diagnosis Sinus rhythm with marked sinus arrhythmia Non-specific intra-ventricula r conduction block T wave abnormality, consider inferolateral ischemia Abnormal ECG When compared with ECG of 30-SEP-2024 16:01, Sinus rhythm has replaced Ectopic atrial rhythm Confirmed by SULTAN CAO M.D. ([id number]) on 10/01/2024 4:19:42 PM [facility] 10/01/2024 9:52 AM CDT 10/01/2024 4:19 PM CDT Ethan Dominguez MD ECG ORDERABLES Final Result Performing Organization Address City/[facility]/ZIP Co de Phone Number [facility] * Magnesium - Add on lab test (10/01/2024 9:00 AM CDT) Pathologist [facility] [place] Acceptable Yes Blood 10/01/2024 9:00 AM CDT 10/01/2024 9:00 AM CDT Narrative [facility]INA - 10/01/2024 9:01 AM CDT Name of Test->Magnesium Ethan Dominguez MD LAB BLOOD ORDERABLES Final Result Performing Organization Address [facility] Co de Phone Number KATALINA [address] [place] [address] * (ABNORMAL) eGFR (10/01/2024 6:17 AM CDT) Pathologist [facility] [place] eGFR 34(L) >=60 mL/min/1. 73 m2 Comment: Interpretive Data Reference Interval Normal >/= 90 mL/min/1.73m2 Mildly decreased* 60 - 89 mL/min/1.73m2 Mildly to moderately decreased 45 - 59 mL/min/1.73m2 Moderately to severely decreased 30 - 44 mL/min/1.73m2 Severely decreased 15 - 29 mL/min/1.73m2 Kidney Failure < 15 mL/min/1.73m2 *Relative to young adult level Estimated glomerular filtration rate is determined by the 2020 CKD-EPI equation recommended by the National Kidney Foundation (A Unifying Approach to GFR Estimation: Recommendations of the NKF-ASK Task Force on Reassessing the Inclusion of Race in Diagnosing Kidney Disease, JASN 2020). The CKD-EPI equation should not be used for patients with unstable renal function and has not been validated in children and those over 70. Current interpretive data was last reviewed 2021. Blood 10/01/2024 6:17 AM CDT 10/01/2024 6:25 AM CDT Ethan Dominguez MD LAB BLOOD ORDERABLES Final Result Performing Organization Address [facility] Co de Phone Number [facility] [place] [address] * (ABNORMAL) Pro B-type natriuretic peptide (10/01/2024 6:17 AM CDT) Pathologist [facility] [place] NT-proBNP 12,984(H) <=300 pg/mL Comment: Interpretive Comments: A. Dyspnea in Acute Care Setting All Ages: < 300 pg/ml, acute heart failure unlikely. < 50 yrs: 300 - 450 pg/ml, further investigation warranted. > 450 pg/ml, acute heart failure likely. 50 - 74 yrs: 300 - 900 pg/ml, further investigation warranted. > 900 pg/ml, acute heart failure likely . > or = 75 yrs: 450 - 1800 pg/ml, further investigation warranted. > 1800 pg/ml, acute heart failure likely. B. Non-acute Setting < 75 yrs < 125 pg/ml, rules out heart failure. > or = 125 pg/ml, further investigation warranted. > or = 75 yrs < 450 pg/ml, rules out heart failure. > or = 450 pg/ml, further investigation warranted. - Knowledge of each individual patient's NT-proBNP range may be more useful than using similar cut-points for every patient. Please note that marked elevations in NT-proBNP levels may be observed in state other than Left Ventricular Congestive Failure, including: acute coronary syndromes, right heart strain/failure (including pulmonary embolism and cor pulmonale), critical illness, renal failure, as well as advanced age. - References: 1. Amanda VAN et.al. Eur Heart J. 2006:27:330-337. 2. Vilma RW, Ruddy HENRANDEZ. J. AM Marcello Cardiol: Cardiovasc Imag. 2009;2: 216- 225. Interpretive Data Last Revised Date: 2018. Blood 10/01/2024 6:17 AM CDT 10/01/2024 6:25 AM CDT Ethan Dominguez MD LAB BLOOD ORDERABLES Final Result Performing Organization Address [facility] de Phone Number [place] [phone] [facility] [place] [address] * (ABNORMAL) TSH (10/01/2024 6:17 AM CDT) Thyroid Stimulating Hormone 7.85(H) 0.30 - 4.20 mcIUnit/mL Blood 10/01/2024 6:17 AM CDT 10/01/2024 6:25 AM CDT Ethan Dominguez MD LAB BLOOD ORDERABLES Final Result Performing Organization Address City/[facility] Co de Phone Number [place] [address] [facility] [place] [address] * Phosphorus (10/01/2024 6:17 AM CDT) Pathologist [facility] [place] Phosphorus, pl 4.3 2.3 - 4.5 mg/dL Blood 10/01/2024 6:17 AM CDT 10/01/2024 6:25 AM CDT Ethan Dominguez MD LAB BLOOD ORDERABLES Final Result Performing Organization Address City/[facility] Co de Phone Number [address] [place] [address] * Magnesium (10/01/2024 6:17 AM CDT) Pathologist [facility] [place] Magnesium 1.8 1.4 - 2.5 mg/dL Blood 10/01/2024 6:17 AM CDT 10/01/2024 6:25 AM CDT Ethan Dominguez MD LAB BLOOD ORDERABLES Final Result Performing Organization Address City/[facility] de Phone Number [address] [place] [address] * (ABNORMAL) Lipid panel (10/01/2024 6:17 AM CDT) Pathologist [facility] [place] Cholesterol 72 30 - 199 mg/dL Comment: Interpretive Data Ages < or = 19 years Acceptable: <170 mg/dL Borderline high: 170-199 mg/dL High: >or= 200 mg/dL Ages > or = 20 years Desirable: <200 mg/dL Borderline high: 200-239 mg/dL High: >or= 240 mg/dL Literature References: 1. Expert Panel on Integrated Guidelines for Cardiovascular Health and Risk Reduction in Children and Adolescents. Pediatrics 2011;128:S213 2. NCEP Expert Panel. Circulation 2004;110:227 Current Interpretive Data was last revised on 2018. Triglycerides 76 <=149 mg/dL [facility] Comment: Interpretive Data Ages < or = 9 years Acceptable: <75 mg/dL Borderline high: 75-99 mg/dL High: >or= 100 mg/dL Ages 10 to 20 years Acceptable: <90 mg/dL Borderline high: 90-129 mg/dL High: >or= 130 mg/dL Ages > or = 20 years Desirable: <150 mg/dL Borderline high: 150-199 mg/dL High: 200-499 mg/dL Very high: >or= 499 mg/dL Literature References: 1. Expert Panel on Integrated Guidelines for Cardiovascular Health and Risk Reduction in Children and Adolescents. Pediatrics 2011;128:S213 2. NCEP Expert Panel. Circulation 2004;110:227 Current Interpretive Data was last revised on 2018. HDL 24(L) >=40 mg/dL [facility] Comment: Interpretive Data Ages < or = 19 years Acceptable: >45 mg/dL Borderline low: 40-45 mg/dL Low: <40 mg/dL Ages > or = 20 years Desirable: >or= 60 mg/dL Low: <40 mg/dL Literature References: 1. Expert Panel on Integrated Guidelines for Cardiovascular Health and Risk Reduction in Children and Adolescents. Pediatrics 2011;128:S213 2. NCEP Expert Panel. Circulation 2004;110:227 Current Interpretive Data was last revised on 2018. LDL, calculated 32 <=129 mg/dL [facility] Comment: Interpretive Data Ages < or = 19 years Acceptable: <110 mg/dL Borderline high: 110-129 mg/dL High: >or= 130 mg/dL Ages > or = 20 years Optimal: <100 mg/dL Near optimal: 100-129 mg/dL Borderline high: 130-159 mg/dL High: >160 mg/dL Calculated using the Wesley LDL-C estimating equation. This equation was implemented on 2024. Prior to this date LDL-C was estimated using the Friedewald equation. Literature References: 1. Expert Panel on Integrated Guidelines for Cardiovascular Health and Risk Reduction in Children and Adolescents. Pediatrics 2011;128:S213 2. NCEP Expert Panel. Circulation 2004;110:227 3. Wesley Wheat al. MARQUES Cardiol. 2020 October 17;5(5):540-548. doi: 10.1001/jamacardio.2020.0013 Current Interpretive Data was last revised on 2024. Non-HDL Cholesterol 48 mg/dL [facility] Comment: Interpretive Data Ages < or = 19 years Acceptable: <120 mg/dL Borderline high: 120-144 mg/dL High: >145 mg/dL Ages > or = 20 years When triglycerides are >200 mg/dL, Non-HDL cholesterol is a secondary target of therapy with treatment goals that are 30 mg/dL greater than the LDL cholesterol target. Literature References: 1. Expert Panel on Integrated Guidelines for Cardiovascular Health and Risk Reduction in Children and Adolescents. Pediatrics 2011;128:S213 2. NCEP Expert Panel. Circulation 2004;110:227 Current Interpretive Data was last revised on 2018. Chol/HDL ratio 3 [facility] Blood 10/01/2024 6:17 AM CDT 10/01/2024 6:25 AM CDT Ethan Dominguez MD LAB BLOOD ORDERABLES Final Result [facility] [address] [facility] Department [place] [address] * (ABNORMAL) Comprehensive metabolic panel (10/01/2024 6:17 AM CDT) Sodium 137 135 - 145 mmol/L Potassium, pl 4.7 3.3 - 4.9 mmol/L [facility] Chloride 103 97 - 110 mmol/L [facility] CO2 22 22 - 32 mmol/L [facility] Anion gap 12 2 - 15 mmol/L [facility] BUN 29(H) 6 - 25 mg/dL [facility] Creatinine 1.72(H) 0.60 - 1.10 mg/dL [facility] Glucose 84 70 - 199 mg/dL [facility] Comment: Interpretive Data Fasting glucose >/= 126 mg/dl is diagnostic for diabetes. Fasting is defined as no caloric intake for at least 8 hours. Fasting glucose between 100 mg/dl to 125 mg/dl is diagnostic of prediabetes. In a patient with classic symptoms of hyperglycemia or hyperglycemic crisis, a random glucose >/= 200 mg/dl is diagnostic for diabetes. In the absence of unequivocal hyperglycemia, results should be confirmed by repeat testing. The classification and Diagnosis of Diabetes Diabetes Care 2021; 46: S19-S40. Current interpretive data was last revised 2022. Calcium 9.4 8.5 - 10.3 mg/dL [facility] Bilirubin, total 2.3(H) 0.1 - 1.2 mg/dL [facility] Protein, pl 6.9 6.5 - 8.5 g/dL [facility] Albumin 3.3(L) 3.5 - 5.0 g/dL [facility] Alk phos 93 40 - 130 Units/L [facility] ALT 24 7 - 45 Units/L [facility] AST 45 10 - 45 Units/L [facility] Blood 10/01/2024 6:17 AM CDT 10/01/2024 6:25 AM CDT Ethan Dominguez MD LAB BLOOD ORDERABLES Final Result Performing Organization Address City/[facility] Co dc Phone Number [facility] [address] [facility] Department [place] [address] * ECG 12 lead (09/30/2024 4:01 PM CDT) Pathologist [facility] Ventricular Rate EKG/Min 74 BPM [facility] Atrial Rate 74 BPM [facility] NC-Interval (MSEC) 156 ms [facility] QRS-Interval (MSEC) 136 ms [facility] QT-Interval (MSEC) 464 ms [facility] QTc 515 ms [facility] P [place] 153 degrees [facility] R [place] 31 degrees [facility] T [place] 222 degrees [facility] Diagnosis Unusual P axis, possible ectopic atrial rhythm Non-specific intra-ventricula r conduction block Minimal voltage criteria for LVH, may be normal variant ( Brandon product ) T wave abnormality, consider inferolateral ischemia Abnormal ECG When compared with ECG of 29-SEP-2024 10:29, Ectopic atrial rhythm has replaced Electronic atrial pacemaker QRS axis Shifted left T wave inversion now evident in Lateral leads Confirmed by BRI TSAI M.D. ([id number]) on 10/01/2024 8:26:53 AM [facility] 09/30/2024 4:01 PM CDT 10/01/2024 8:26 AM CDT Ethan Dominguez MD ECG ORDERABLES Final Result [facility] * CP-CRE culture, surveillance Rectal swab (09/30/2024 3:45 PM CDT) Pathologist [facility] Report Final Report: Negative Comment:Testing performed by : [facility], [address] [facility], [place]., [address] Rectal swab 09/30/2024 3:45 PM CDT 09/30/2024 6:04 PM CDT Narrative KATALINA - 10/02/2024 12:18 PM CDT Interpretive Data The screening agar used for the detection of carbapenemase-producing Enterobacterales (CP-CRE) has not been approved by the Food and Drug Administration. The performance characteristics of this medium have been evaluated and verified by the [facility]. This media demonstrates highest sensitivity for KPC and NDM-1 producing isolates. This screening assay is exclusively intended for infection control and surveillance, not for patient diagnosis or treatment purposes. Current interpretive data was last revised on 2023. us Eddie Manzanares MD LAB MICROBIOLOGY - GENERAL O RDERABLES Final Result Performing Organization Address [facility] Co de Phone Number [address] [place] [address] * Magnesium (09/30/2024 8:20 AM CDT) Pathologist [facility] [place] Magnesium 1.8 1.4 - 2.5 mg/dL Blood 09/30/2024 8:20 AM CDT 09/30/2024 8:48 AM CDT us Ethan Dominguez MD LAB BLOOD ORDERABLES Final Result Performing Organization Address [facility] Co de Phone Number [place] [phone] [facility] [place] [address] * Magnesium - Add on lab test (09/30/2024 7:14 AM CDT) Pathologist [facility] Acceptable Yes Blood 09/30/2024 7:14 AM CDT 09/30/2024 7:14 AM CDT Narrative [facility] - 09/30/2024 7:15 AM CDT Name of Test->Magnesium Ethan Dominguez MD LAB BLOOD ORDERABLES Final Result Performing Organization Address City/[facility] Co de Phone Number [address] [address] * (ABNORMAL) eGFR (09/30/2024 4:08 AM CDT) eGFR 34(L) >=60 mL/min/1. 73 m2 Comment: Interpretive Data Reference Interval Normal >/= 90 mL/min/1.73m2 Mildly decreased* 60 - 89 mL/min/1.73m2 Mildly to moderately decreased 45 - 59 mL/min/1.73m2 Moderately to severely decreased 30 - 44 mL/min/1.73m2 Severely decreased 15 - 29 mL/min/1.73m2 Kidney Failure < 15 mL/min/1.73m2 *Relative to young adult level Estimated glomerular filtration rate is determined by the 2020 CKD-EPI equation recommended by the National Kidney Foundation (A Unifying Approach to GFR Estimation: Recommendations of the NKF-ASK Task Force on Reassessing the Inclusion of Race in Diagnosing Kidney Disease, JASN 2020). The CKD-EPI equation should not be used for patients with unstable renal function and has not been validated in children and those over 70. Current interpretive data was last reviewed 2021. Blood 09/30/2024 4:08 AM CDT 09/30/2024 4:40 AM CDT Ethan Dominguez MD LAB BLOOD ORDERABLES Final Result Performing Organization Address City/[facility]/ZIP Co de Phone Number [address] [place] [address] * Magnesium (09/30/2024 4:08 AM CDT) Magnesium 2.0 1.4 - 2.5 mg/dL Blood 09/30/2024 4:08 AM CDT 09/30/2024 4:40 AM CDT Ethan Dominguez MD LAB BLOOD ORDERABLES Final Result [facility] [address] [facility] Department [place] [address] * (ABNORMAL) Comprehensive metabolic panel (09/30/2024 4:08 AM CDT) Pathologist [facility] [place] Sodium 133(L) 135 - 145 mmol/L Potassium, pl 4.5 3.3 - 4.9 mmol/L [facility] Comment:Hemolyzed; Potassium value may be falsely elevated by as much as 1.0 mmol/L. Suggest redraw and reanalysis. Chloride 101 97 - 110 mmol/L [facility] CO2 18(L) 22 - 32 mmol/L [facility] Anion gap 14 2 - 15 mmol/L [facility] BUN 30(H) 6 - 25 mg/dL [facility] Creatinine 1.73(H) 0.60 - 1.10 mg/dL [facility] Glucose 76 70 - 199 mg/dL [facility] Comment: Interpretive Data Fasting glucose >/= 126 mg/dl is diagnostic for diabetes. Fasting is defined as no caloric intake for at least 8 hours. Fasting glucose between 100 mg/dl to 125 mg/dl is diagnostic of prediabetes. In a patient with classic symptoms of hyperglycemia or hyperglycemic crisis, a random glucose >/= 200 mg/dl is diagnostic for diabetes. In the absence of unequivocal hyperglycemia, results should be confirmed by repeat testing. The classification and Diagnosis of Diabetes Diabetes Care 2021; 46: S19-S40. Current interpretive data was last revised 2022. Calcium 9.8 8.5 - 10.3 mg/dL [facility] Bilirubin, total 2.3(H) 0.1 - 1.2 mg/dL [facility] Protein, pl 8.0 6.5 - 8.5 g/dL [facility] Albumin 3.5 3.5 - 5.0 g/dL [facility] Alk phos 109 40 - 130 Units/L [facility] ALT 25 7 - 45 Units/L [facility] AST See Comment 10 - 45 [facility] Comment:Credited; Hemolyzed Specimen Blood 09/30/2024 4:08 AM CDT 09/30/2024 4:40 AM CDT Ethan Dominguez MD LAB BLOOD ORDERABLES Final Result Performing Organization Address City/[facility]/ZIP Co de Phone Number [facility] [address] [facility] Department [place] [address] * ECG 12 lead (09/29/2024 10:29 AM CDT) Pathologist [facility] Ventricular Rate EKG/Min 83 BPM [facility] Atrial Rate 83 BPM [facility] NC-Interval (MSEC) 198 ms [facility] QRS-Interval (MSEC) 130 ms [facility] QT-Interval (MSEC) 446 ms [facility] QTc 524 ms [facility] R [place] 132 degrees [facility] T [place] 232 degrees [facility] Diagnosis Sinus rhythm with occasional atrial-paced complexes and Premature atrial complexes Right axis deviation Non-specific intra-ventric ular conduction block Minimal voltage criteria for LVH, may be normal variant ( Brandon product ) T wave abnormality, consider inferior ischemia Abnormal ECG Confirmed by SARI FELIX M.D. ([id number]) on 09/29/2024 5:13:43 PM [facility] 09/29/2024 10:2 9 AM CDT 09/29/2024 5:13 PM CDT Ethan Dominguez MD ECG ORDERABLES Final Result Performing Organization Address City/[facility]/ZIP Co de Phone Number [facility] * (ABNORMAL) eGFR (09/29/2024 6:42 AM CDT) Pathologist [facility] eGFR 34(L) >=60 mL/min/1. 73 m2 Comment: Interpretive Data Reference Interval Normal >/= 90 mL/min/1.73m2 Mildly decreased* 60 - 89 mL/min/1.73m2 Mildly to moderately decreased 45 - 59 mL/min/1.73m2 Moderately to severely decreased 30 - 44 mL/min/1.73m2 Severely decreased 15 - 29 mL/min/1.73m2 Kidney Failure < 15 mL/min/1.73m2 *Relative to young adult level Estimated glomerular filtration rate is determined by the 2020 CKD-EPI equation recommended by the National Kidney Foundation (A Unifying Approach to GFR Estimation: Recommendations of the NKF-ASK Task Force on Reassessing the Inclusion of Race in Diagnosing Kidney Disease, JASN 2020). The CKD-EPI equation should not be used for patients with unstable renal function and has not been validated in children and those over 70. Current interpretive data was last reviewed 2021. Blood 09/29/2024 6:42 AM CDT 09/29/2024 7:18 AM CDT Ethan Dominguez MD LAB BLOOD ORDERABLES Final Result [facility] [address] [facility] Department of Laboratories [place], [place] [id number] * (ABNORMAL) Comprehensive metabolic panel (09/29/2024 6:42 AM CDT) Sodium 138 135 - 145 mmol/L Potassium, pl 3.8 3.3 - 4.9 mmol/L [facility] Chloride 105 97 - 110 mmol/L [facility] CO2 22 22 - 32 mmol/L [facility] Anion gap 11 2 - 15 mmol/L [facility] BUN 28(H) 6 - 25 mg/dL [facility] Creatinine 1.74(H) 0.60 - 1.10 mg/dL [facility] Glucose 79 70 - 199 mg/dL [facility] Comment: Interpretive Data Fasting glucose >/= 126 mg/dl is diagnostic for diabetes. Fasting is defined as no caloric intake for at least 8 hours. Fasting glucose between 100 mg/dl to 125 mg/dl is diagnostic of prediabetes. In a patient with classic symptoms of hyperglycemia or hyperglycemic crisis, a random glucose >/= 200 mg/dl is diagnostic for diabetes. In the absence of unequivocal hyperglycemia, results should be confirmed by repeat testing. The classification and Diagnosis of Diabetes Diabetes Care 202; 46: S19-S40. Current interpretive data was last revised 2022. Calcium 9.2 8.5 - 10.3 mg/dL [facility] Bilirubin, total 2.0(H) 0.1 - 1.2 mg/dL [facility] Protein, pl 6.3(L) 6.5 - 8.5 g/dL [facility] Albumin 3.0(L) 3.5 - 5.0 g/dL [facility] Alk phos 88 40 - 130 Units/L [facility] ALT 20 7 - 45 Units/L [facility] AST 33 10 - 45 Units/L [facility] Blood 09/29/2024 6:42 AM CDT 09/29/2024 7:18 AM CDT us Ethan Dominguez MD LAB BLOOD ORDERABLES Final Result [facility] [address] [facility] [place] [address] * (ABNORMAL) eGFR (09/28/2024 10:37 AM CDT) eGFR 36(L) >=60 mL/min/1. 73 m2 Comment: Interpretive Data Reference Interval Normal >/= 90 mL/min/1.73m2 Mildly decreased* 60 - 89 mL/min/1.73m2 Mildly to moderately decreased 45 - 59 mL/min/1.73m2 Moderately to severely decreased 30 - 44 mL/min/1.73m2 Severely decreased 15 - 29 mL/min/1.73m2 Kidney Failure < 15 mL/min/1.73m2 *Relative to young adult level Estimated glomerular filtration rate is determined by the 2020 CKD-EPI equation recommended by the National Kidney Foundation (A Unifying Approach to GFR Estimation: Recommendations of the NKF-ASK Task Force on Reassessing the Inclusion of Race in Diagnosing Kidney Disease, JASN 202). The CKD-EPI equation should not be used for patients with unstable renal function and has not been validated in children and those over 70. Current interpretive data was last reviewed 2021. Blood 09/28/2024 10:3 7 AM CDT 09/28/2024 11:02 AM CDT Ethan Dominguez MD LAB BLOOD ORDERABLES Final Result Performing Organization Address City/[facility] Co de Phone Number [address] [address] * Magnesium (09/28/2024 10:37 AM CDT) [facility] Magnesium 1.9 1.4 - 2.5 mg/dL Blood 09/28/2024 10:3 7 AM CDT 09/28/2024 11:02 AM CDT Ethan Mateo Dominguez MD LAB BLOOD ORDERABLES Final Result Performing Organization Address [facility] de Phone Number [address] [address] * (ABNORMAL) Basic metabolic panel (09/28/2024 10:37 AM CDT) [facility] Sodium 136 135 - 145 mmol/L Potassium, pl 4.2 3.3 - 4.9 mmol/L [facility] Comment:Hemolyzed; Potassium value may be falsely elevated by as much as 1.0 mmol/L. Suggest redraw and reanalysis. Chloride 101 97 - 110 mmol/L [facility] CO2 21(L) 22 - 32 mmol/L [facility] Anion gap 14 2 - 15 mmol/L [facility] BUN 25 6 - 25 mg/dL [facility] Creatinine 1.67(H) 0.60 - 1.10 mg/dL [facility] Glucose 132 70 - 199 mg/dL [facility] Comment: Interpretive Data Fasting glucose >/= 126 mg/dl is diagnostic for diabetes. Fasting is defined as no caloric intake for at least 8 hours. Fasting glucose between 100 mg/dl to 125 mg/dl is diagnostic of prediabetes. In a patient with classic symptoms of hyperglycemia or hyperglycemic crisis, a random glucose >/= 200 mg/dl is diagnostic for diabetes. In the absence of unequivocal hyperglycemia, results should be confirmed by repeat testing. The classification and Diagnosis of Diabetes Diabetes Care 2021; 46: S19-S40. Current interpretive data was last revised 2022. Calcium 9.0 8.5 - 10.3 mg/dL [facility] Blood 09/28/2024 10:3 7 AM CDT 09/28/2024 11:02 AM CDT Ethan Dominguez MD LAB BLOOD ORDERABLES Final Result Performing Organization Address City/[facility]/ZIP Co de Phone Number [facility] [address] [facility] Department [place] [address] * ECG 12 lead (09/28/2024 9:46 AM CDT) Pathologist [facility] [place] Ventricular Rate EKG/Min 78 BPM [facility] Atrial Rate 78 BPM [facility] NC-Interval (MSEC) 152 ms [facility] QRS-Interval (MSEC) 136 ms [facility] QT-Interval (MSEC) 506 ms [facility] QTc 576 ms [facility] R [place] 120 degrees [facility] T [place] 238 degrees [facility] Diagnosis Sinus rhythm with occasional Premature ventricular complexes and Premature atrial complexes Non-specific intra-ventricula r conduction block T wave abnormality, consider inferolateral ischemia Abnormal ECG When compared with ECG of 27-SEP-2024 13:10, QRS axis Shifted right Confirmed by BRI TSAI M.D. ([id number]) on 10/01/2024 12:09:18 AM [facility] 09/28/2024 9:46 AM CDT 10/01/2024 12:09 AM CDT Ethan Dominguez MD ECG ORDERABLES Final Result Performing Organization Address [facility]/ZIP Co de Phone Number [facility] * (ABNORMAL) eGFR (09/28/2024 8:40 AM CDT) Pathologist [facility] [place] eGFR 36(L) >=60 mL/min/1. 73 m2 Comment: Interpretive Data Reference Interval Normal >/= 90 mL/min/1.73m2 Mildly decreased* 60 - 89 mL/min/1.73m2 Mildly to moderately decreased 45 - 59 mL/min/1.73m2 Moderately to severely decreased 30 - 44 mL/min/1.73m2 Severely decreased 15 - 29 mL/min/1.73m2 Kidney Failure < 15 mL/min/1.73m2 *Relative to young adult level Estimated glomerular filtration rate is determined by the 2020 CKD-EPI equation recommended by the National Kidney Foundation (A Unifying Approach to GFR Estimation: Recommendations of the NKF-ASK Task Force on Reassessing the Inclusion of Race in Diagnosing Kidney Disease, JASN 202). The CKD-EPI equation should not be used for patients with unstable renal function and has not been validated in children and those over 70. Current interpretive data was last reviewed 2021. Blood 09/28/2024 8:40 AM CDT 09/28/2024 8:55 AM CDT us Ethan Dominguez MD LAB BLOOD ORDERABLES Final Result [facility] [address] [facility] Department [place] [address] * (ABNORMAL) Differential, auto (09/28/2024 8:40 AM CDT) Pathologist [facility] Neutrophil abs 1.79 1.50 - 6.50 K/cumm Imm gran abs 0.00 0.00 - 0.10 K/cumm [facility] Lymphocyte abs 1.87 0.80 - 3.30 K/cumm [facility] Monocyte abs 0.44 0.20 - 0.80 K/cumm [facility] Eosinophil abs 1.60(H) 0.00 - 0.50 K/cumm [facility] Basophil abs 0.08 0.00 - 0.10 K/cumm [facility] Neutrophil pct 30.9 % [facility] Comment: Interpretive Data Percent cell count reference ranges are not reported, since discordance with absolute values may lead to misinterpretation of CBC data. Current Interpretive Data was last revised on 2017. Imm gran pct 0.0 % [facility] Comment: Interpretive Data Percent cell count reference ranges are not reported, since discordance with absolute values may lead to misinterpretation of CBC data. Current Interpretive Data was last revised on 2017. Lymphocyte pct 32.4 % [facility] Comment: Interpretive Data Percent cell count reference ranges are not reported, since discordance with absolute values may lead to misinterpretation of CBC data. Current Interpretive Data was last revised on 2017. Monocyte pct 7.6 % [facility] Comment: Interpretive Data Percent cell count reference ranges are not reported, since discordance with absolute values may lead to misinterpretation of CBC data. Current Interpretive Data was last revised on 2017. Eosinophil pct 27.7 % [facility] Comment: Interpretive Data Percent cell count reference ranges are not reported, since discordance with absolute values may lead to misinterpretation of CBC data. Current Interpretive Data was last revised on 2017. Basophil pct 1.4 % [facility] Comment: Interpretive Data Percent cell count reference ranges are not reported, since discordance with absolute values may lead to misinterpretation of CBC data. Current Interpretive Data was last revised on 2017. Blood 09/28/2024 8:40 AM CDT 09/28/2024 8:55 AM CDT Ethan Dominguez MD LAB BLOOD ORDERABLES Final Result [facility] [address] [facility] Department [place] [address] * (ABNORMAL) CBC with auto differential (09/28/2024 8:40 AM CDT) WBC 5.78 3.80 - 9.90 K/cumm Hgb 13.4 11.9 - 15.5 g/dL [facility] Hct 44.9 35.6 - 45.5 % [facility] Plt 128(L) 150 - 400 K/cumm [facility] MPV 9.5 9.1 - 12.3 fL [facility] RBC 4.55 3.90 - 5.20 M/cumm [facility] MCV 98.7(H) 81.3 - 96.4 fL [facility] MCH 29.5 27.1 - 33.3 pg [facility] MCHC 29.8(L) 32.3 - 35.7 g/dL [facility] RDW CV 15.2(H) 11.1 - 14.9 % [facility] RDW SD 54.2(H) 35.7 - 48.1 fL [facility] NRBC abs 0.00 0.00 - 0.01 K/cumm [facility] Blood 09/28/2024 8:40 AM CDT 09/28/2024 8:55 AM CDT Ethan Dominguez MD LAB BLOOD ORDERABLES Final Result [facility] [address] [facility] Department [place] [address] * (ABNORMAL) Comprehensive metabolic panel (09/28/2024 8:40 AM CDT) Sodium 133(L) 135 - 145 mmol/L Potassium, pl 4.3 3.3 - 4.9 mmol/L [facility] Comment:Hemolyzed; Potassium value may be falsely elevated by as much as 1.0 mmol/L. Suggest redraw and reanalysis. Chloride 103 97 - 110 mmol/L [facility] CO2 16(L) 22 - 32 mmol/L [facility] Anion gap 14 2 - 15 mmol/L [facility] BUN 25 6 - 25 mg/dL [facility] Creatinine 1.66(H) 0.60 - 1.10 mg/dL [facility] Glucose 68(L) 70 - 199 mg/dL [facility] Comment: Interpretive Data Fasting glucose >/= 126 mg/dl is diagnostic for diabetes. Fasting is defined as no caloric intake for at least 8 hours. Fasting glucose between 100 mg/dl to 125 mg/dl is diagnostic of prediabetes. In a patient with classic symptoms of hyperglycemia or hyperglycemic crisis, a random glucose >/= 200 mg/dl is diagnostic for diabetes. In the absence of unequivocal hyperglycemia, results should be confirmed by repeat testing. The classification and Diagnosis of Diabetes Diabetes Care 202; 46: S19-S40. Current interpretive data was last revised 2022. Calcium 9.1 8.5 - 10.3 mg/dL [facility] Bilirubin, total 2.9(H) 0.1 - 1.2 mg/dL [facility] Protein, pl 6.4(L) 6.5 - 8.5 g/dL [facility] Albumin 2.8(L) 3.5 - 5.0 g/dL [facility] Alk phos 94 40 - 130 Units/L [facility] ALT 24 7 - 45 Units/L [facility] AST See Comment 10 [facility] Comment:Credited; Hemolyzed Specimen Blood 09/28/2024 8:40 AM CDT 09/28/2024 8:55 AM CDT Ethan Dominguez MD LAB BLOOD ORDERABLES Final Result [facility] [address] [place] [address] * Magnesium (09/27/2024 2:58 PM CDT) [facility] Magnesium 1.6 1.4 - 2.5 mg/dL Blood 09/27/2024 2:58 PM CDT 09/27/2024 3:02 PM CDT Ethan Dominguez MD LAB BLOOD ORDERABLES Final Result Performing Organization Address City/[facility] Co de Phone Number [facility]ARD[address] [place] [address] * ECG 12 lead (09/27/2024 1:10 PM CDT) [facility] Ventricular Rate EKG/Min 86 BPM [facility] QRS-Interval (MSEC) 128 ms [facility] QT-Interval (MSEC) 462 ms [facility] QTc 552 ms [facility] R [place] -15 degrees [facility] T [place] 213 degrees [facility] Diagnosis Atrial fibrillation Non-specific intra-ventricula r conduction block Minimal voltage criteria for LVH, may be normal variant ( Brandon product ) T wave abnormality, consider inferolateral ischemia Abnormal ECG When compared with ECG of 26-SEP-2024 15:29, No significant change was found Confirmed by PIPO CALVO M.D. ([id number]) on 09/27/2024 2:57:43 PM [facility] 09/27/2024 1:10 PM CDT 09/27/2024 2:57 PM CDT us Ethan Dominguez MD ECG ORDERABLES Final Result [facility] * TRANSTHORACIC ECHO (TTE) COMPLETE W DOPPLER/CF W CONTRAST (09/27/2024 11:30 AM CDT) LV EF 10-15 % CONS SCIMAGE Anatomical Region Laterality Modality Ultrasound 09/27/2024 10:5 3 AM CDT Narrative 09/29/2024 5:27 PM CDT Transthoracic Echocardiographic Report Patient Name: VARUN SANABRIA D : 1970 (54y 3m) Gender: F Study Date: 09/27/2024 10:53:53 AM Ht(Inch): 61 Wt(Lb): 217.99 BSA: 2.06 Social Insurance Administrator: Lanie Rivero RDCS Location: [id number] Order Provider: DU MORGAN Heart Rate: 84 BMI: 41.18 BP: 86 / 56 Ref Provider: DU MORGAN PROCEDURES: Echocardiographic Report: ([id number]) Transthoracic complete echo, 2D, spectral and tissue Doppler, color flow Doppler, M-mode. Contrast: A contrast injection of Definity was performed to improve assessment of LV function. Definity Lot Number: [id number]. INDICATIONS: Congestive heart failure. FINDINGS: Left Ventricle: The left ventricle cavity is small. Normal Left ventricular wall thickness. The Ejection Fraction is visually estimated to be 10-15 %. Diastolic Function E to E' ratio is >15 suggesting a high pulminary wedge pressure and LV diastolic dysfunction. No obvious thrombus noted. Right Ventricle: Wire noted in the right heart. Left Atrium: Mildly dilated left atrium. Right Atrium: Appears mildly dilated Mitral Valve: Normal mitral valve leaflet structure. There is mild mitral valve regurgitation. Aortic Valve: Trileaflet aortic valve. The aortic valve area by the continuity equation (using Peak Negrito) is 2.2 cm2. Tricuspid Valve: The tricuspid valve demonstrates normal leaflet structure. There is mild tricuspid regurgitation. The estimated right ventricular systolic pressure is 33 mmHg. Pulmonic Valve: Pulmonic Valve not well visualized due to poor echo windows. There is trace pulmonic regurgitation. Aorta: Normal aortic root. IVC: IVC is dilated. The estimated RA pressure is 8 mmHg. CONCLUSIONS: 1. The Ejection Fraction is visually estimated to be 10-15 %. Diastolic Function E to E' ratio is >15 suggesting a high pulminary wedge pressure and LV diastolic dysfunction. No obvious thrombus noted. 2. Mildly dilated left atrium. 3. Appears mildly dilated. 4. There is mild tricuspid regurgitation. The estimated right ventricular systolic pressure is 33 mmHg. 5. IVC is dilated. The estimated RA pressure is 8 mmHg. MEASUREMENTS: 2D/MM Value Range Doppler Value LVIDd 2D 4.84 cm [ 3.50 - 5.70 ] AV Peak Negrito 0.87 m/s LVIDs 2D 4.73 cm [ 3.10 - 4.60 ] AV Peak PG 3.03 mmHg IVSd 2D 1.22 cm [ 0.60 - 1.20 ] LVOT Peak Negrito 0.61 m/s LVPWd 2D 1.17 cm [ 0.60 - 1.10 ] LVOT Peak PG 1.49 mmHg LV Thickness Ratio 1.04 LVOT Diam 2.00 cm LV Mass 2D 224.34 g ODETTE Vmax 2.20 cm2 LV Mass Index 2D 108.90 g/m2 MV E Peak Negrito 0.67 m/s RWT 0.48 Med E` Negrito 2.53 cm/sec Visually Estimated EF 10-15 % Lat E` Negrito 5.16 cm/sec LA Dimension 2D 4.40 cm [ 1.90 - 4.00 ] Average E/E` 17.43 IVC Diam 2.15 cm TV Peak Negrito 0.75 m/s AoR Diam 2D 2.80 cm [ 2.00 - 3.70 ] TV Peak PG 2.25 mmHg Ao Root Index 1.36 cm/m2 [ 1.00 - 2.00 ] RV S` 6.15 cm/sec TR Peak Negrito 2.49 m/s TR Peak PG 24.8 mmHg RA Pressure 8.00 mmHg RVSP 32.80 mmHg PV Peak Negrito 0.68 m/s PV Peak PG 1.85 mmHg - ATTESTATION: I have reviewed and interpreted the pertinent images and measurements of this study. I attest to the conclusions in the final report that is provided above. DISCLAIMER: The study images and the final report will be retained in the patient chart by the Echo Laboratory for the legally required time period. This chart constitutes the legal record of any testing performed. Electronically Signed By: Sari Felix Jr MD 09/29/2024 5:26:55 PM CDT Procedure Note Sari Felix Jr., MD - 09/29/2024 Transthoracic Echocardiographic Report Patient Name: VARUN SANABRIA D : 1970 (54y 3m) Gender: F Study Date: 09/27/2024 10:53:53 AM Ht(Inch): 61 Wt(Lb): 217.99 BSA: 2.06 Social Insurance Administrator: Lanie Rivero RDCS Location: [id number] Order Provider:DU MORGAN Heart Rate: 84 BMI: 41.18 BP: 86 / 56 Ref Provider: DU MORGAN PROCEDURES: Echocardiographic Report: ([id number]) Transthoracic complete echo, 2D,spectral and tissue Doppler, color flow Doppler, M-mode. Contrast: A contrast injection of Definity was performed to improveassessment of LV function. Definity Lot Number: [id number]. INDICATIONS: Congestive heart failure. FINDINGS: Left Ventricle: The left ventricle cavity is small. Normal Leftventricular wall thickness. The Ejection Fraction is visually estimated to be 10-15 %.Diastolic Function E to E' ratio is >15 suggesting a high pulminary wedge pressure and LVdiastolic dysfunction. No obvious thrombus noted. Right Ventricle: Wire noted in the right heart. Left Atrium: Mildly dilated left atrium. Right Atrium: Appears mildly dilated Mitral Valve: Normal mitral valve leaflet structure. There is mild mitralvalve regurgitation. Aortic Valve: Trileaflet aortic valve. The aortic valve area by thecontinuity equation (using Peak Negrito) is 2.2 cm2. Tricuspid Valve: The tricuspid valve demonstrates normal leafletstructure. There is mild tricuspid regurgitation. The estimated right ventricular systolic pressureis 33 mmHg. Pulmonic Valve: Pulmonic Valve not well visualized due to poor echowindows. There is trace pulmonic regurgitation. Aorta: Normal aortic root. IVC: IVC is dilated. The estimated RA pressure is 8 mmHg. CONCLUSIONS: 1. The Ejection Fraction is visually estimated to be 10-15 %. DiastolicFunction E to E' ratio is >15 suggesting a high pulminary wedge pressure and LV diastolicdysfunction. No obvious thrombus noted. 2. Mildly dilated left atrium. 3. Appears mildly dilated. 4. There is mild tricuspid regurgitation. The estimated right ventricularsystolic pressure is 33 mmHg. 5. IVC is dilated. The estimated RA pressure is 8 mmHg. MEASUREMENTS: 2D/MM Value Range DopplerValue LVIDd 2D 4.84 cm [ 3.50 - 5.70 ] AV Peak Vel0.87 m/s LVIDs 2D 4.73 cm [ 3.10 - 4.60 ] AV Peak PG3.03 mmHg IVSd 2D 1.22 cm [ 0.60 - 1.20 ] LVOT Peak Vel0.61 m/s LVPWd 2D 1.17 cm [ 0.60 - 1.10 ] LVOT Peak PG1.49 mmHg LV Thickness Ratio 1.04 LVOT Diam2.00 cm LV Mass 2D 224.34 g ODETTE Vmax2.20 cm2 LV Mass Index 2D 108.90 g/m2 MV E Peak Vel0.67 m/s RWT 0.48 Med E` Vel2.53 cm/sec Visually Estimated EF 10-15 % Lat E` Vel5.16 cm/sec LA Dimension 2D 4.40 cm [ 1.90 - 4.00 ] Average E/E`17.43 IVC Diam 2.15 cm TV Peak Vel0.75 m/s AoR Diam 2D 2.80 cm [ 2.00 - 3.70 ] TV Peak PG2.25 mmHg Ao Root Index 1.36 cm/m2 [ 1.00 - 2.00 ] RV S`6.15 cm/sec TR Peak Negrito 2.49 m/s TR Peak PG 24.8 mmHg RA Pressure 8.00 mmHg RVSP 32.80 mmHg PV Peak Negrito 0.68 m/s PV Peak PG 1.85 mmHg - ATTESTATION: I have reviewed and interpreted the pertinent images and measurements ofthis study. I attest to the conclusions in the final report that is provided above. DISCLAIMER: The study images and the final report will be retained in the patientchart by the Echo Laboratory for the legally required time period. This chart constitutesthe legal record of any testing performed. Electronically Signed By: Sari Felix Jr MD 09/29/2024 5:26:55 PM CDT us Du Morgan MD CV ECHO PROCEDURES Final Res ult * (ABNORMAL) eGFR (09/27/2024 4:45 AM CDT) eGFR 38(L) >=60 mL/min/1. 73 m2 Comment: Interpretive Data Reference Interval Normal >/= 90 mL/min/1.73m2 Mildly decreased* 60 - 89 mL/min/1.73m2 Mildly to moderately decreased 45 - 59 mL/min/1.73m2 Moderately to severely decreased 30 - 44 mL/min/1.73m2 Severely decreased 15 - 29 mL/min/1.73m2 Kidney Failure < 15 mL/min/1.73m2 *Relative to young adult level Estimated glomerular filtration rate is determined by the 2020 CKD-EPI equation recommended by the National Kidney Foundation (A Unifying Approach to GFR Estimation: Recommendations of the NKF-ASK Task Force on Reassessing the Inclusion of Race in Diagnosing Kidney Disease, JASN 2020). The CKD-EPI equation should not be used for patients with unstable renal function and has not been validated in children and those over 70. Current interpretive data was last reviewed 2021. Blood 09/27/2024 4:45 AM CDT 09/27/2024 4:58 AM CDT Du Morgan MD LAB BLOOD ORDERABLES Final R esult [place] [id number] [facility] Department [place] [address] * (ABNORMAL) CBC without differential (09/27/2024 4:45 AM CDT) WBC 7.47 3.80 - 9.90 K/cumm Hgb 13.4 11.9 - 15.5 g/dL [facility] Hct 44.3 35.6 - 45.5 % [facility] Plt 142(L) 150 - 400 K/cumm [facility] MPV 9.3 9.1 - 12.3 fL [facility] RBC 4.58 3.90 - 5.20 M/cumm [facility] MCV 96.7(H) 81.3 - 96.4 fL [facility] MCH 29.3 27.1 - 33.3 pg [facility] MCHC 30.2(L) 32.3 - 35.7 g/dL [facility] RDW CV 14.8 11.1 - 14.9 % [facility] RDW SD 51.5(H) 35.7 - 48.1 fL [facility] NRBC abs 0.00 0.00 - 0.01 K/cumm [facility] Blood 09/27/2024 4:45 AM CDT 09/27/2024 4:58 AM CDT Du Moragn MD LAB BLOOD ORDERABLES Final R esult [facility] [address] [place] [address] * Magnesium (09/27/2024 4:45 AM CDT) [facility] Magnesium 1.5 1.4 - 2.5 mg/dL Blood 09/27/2024 4:45 AM CDT 09/27/2024 4:58 AM CDT Du Morgan MD LAB BLOOD ORDERABLES Final R esult Performing Organization Address [facility] Co de Phone Number [address] [place] [address] * (ABNORMAL) Hepatic function panel (09/27/2024 4:45 AM CDT) [facility] Bilirubin, total 3.0(H) 0.1 - 1.2 mg/dL Bilirubin, direct 1.0(H) 0.1 - 0.3 mg/dL [facility] Protein, pl 6.6 6.5 - 8.5 g/dL [facility] Albumin 3.2(L) 3.5 - 5.0 g/dL [facility] Alk phos 93 40 - 130 Units/L [facility] ALT 26 7 - 45 Units/L [facility] AST 39 10 - 45 Units/L [facility] Blood 09/27/2024 4:45 AM CDT 09/27/2024 4:58 AM CDT Du Morgan MD LAB BLOOD ORDERABLES Final R esult Performing Organization Address City/[facility] Co de Phone Number KATALINA [address] [place] [address] * (ABNORMAL) Basic metabolic panel (09/27/2024 4:45 AM CDT) [facility] Sodium 137 135 - 145 mmol/L Potassium, pl 3.6 3.3 - 4.9 mmol/L [facility] Chloride 102 97 - 110 mmol/L [facility] CO2 23 22 - 32 mmol/L [facility] Anion gap 12 2 - 15 mmol/L [facility] BUN 20 6 - 25 mg/dL [facility] Creatinine 1.59(H) 0.60 - 1.10 mg/dL [facility] Glucose 74 70 - 199 mg/dL [facility] Comment: Interpretive Data Fasting glucose >/= 126 mg/dl is diagnostic for diabetes. Fasting is defined as no caloric intake for at least 8 hours. Fasting glucose between 100 mg/dl to 125 mg/dl is diagnostic of prediabetes. In a patient with classic symptoms of hyperglycemia or hyperglycemic crisis, a random glucose >/= 200 mg/dl is diagnostic for diabetes. In the absence of unequivocal hyperglycemia, results should be confirmed by repeat testing. The classification and Diagnosis of Diabetes Diabetes Care 202; 46: S19-S40. Current interpretive data was last revised 2022. Calcium 9.3 8.5 - 10.3 mg/dL [facility] Blood 09/27/2024 4:45 AM CDT 09/27/2024 4:58 AM CDT Du Morgan MD LAB BLOOD ORDERABLES Final R esult [facility] [address] [facility] [place] [address] * (ABNORMAL) Troponin T high-sensitivity 6-hour (09/26/2024 9:20 PM CDT) Trop T hs 45(H) <=14 ng/L Comment: Interpretive Data For further hscTnT resources including the diagnostic algorithm and an aid in interpretation, copy and paste this link: [email or web address].testcatalog.org/show/[email or web address] Current Interpretive Data last revised 2020. Trop T hs delta -3 ng/L [facility] Trop T hs interp Insignificant [facility] Blood 09/26/2024 9:20 PM CDT 09/26/2024 9:24 PM CDT Sailaja BANKS LAB BLOOD ORDERABLES Final Result Performing Organization Address City/[facility]/ZIP Co de Phone Number KATALINA Gary4 [facility] [place] [address] * Blood culture Blood Blood (09/26/2024 8:40 PM CDT) Report Final Report: No growth Comment:Testing performed by : [facility], [address] [place]., [address] Blood (Blood) 09/26/2024 8:4 0 PM CDT 09/27/2024 4:50 AM CDT Narrative KATALINA - 10/01/2024 7:00 AM CDT Collection->Peripheral 1. Blood cultures are incubated for 4 days on a continuously monitored blood culture system. The first report of a negative culture is issued within 24 hours of receipt of the specimen in the laboratory. 2. Positive culture results are reported as soon as they are detected. 3. The most important factor for detection of microbes in the setting of bloodstream infection is the volume of blood submitted for culture. Failure to collect an optimal blood volume can result in false negative blood cultures. 4. For pediatric patients, the recommended blood volume to collect follows a weight based strategy. See the electronic test catalog for collection instructions. 5. For positive blood cultures, a rapid molecular test may be performed for organism identification using the kathia ePlex blood culture identification panel for gram positive (BCID-GP) and gram negative (BCID-GN) organisms. This nucleic acid amplification test detects microbial DNA in positive blood culture broth. This assay has been cleared by the [place] Food and Drug Administration and its performance characteristics have been verified by the [facility]. For questions about this culture, contact the Microbiology Laboratory at [phone]. Interpretive data was last revised on 24. us Angela Kirk MD LAB MICROBIOLOGY - GENERAL ORDERABLES Final Result Performing Organization Address City/[facility]/ZIP Co de Phone Number KATALINA Daniels [facility] [place] [address] * Blood culture Blood Blood (09/26/2024 8:39 PM CDT) Report Final Report: No growth Comment:Testing performed by : [facility], [address] [place]., [address] Blood (Blood) 09/26/2024 8:3 9 PM CDT 09/27/2024 4:50 AM CDT Narrative KATALINA MCKEON - 10/01/2024 7:00 AM CDT Collection->Peripheral 1. Blood cultures are incubated for 4 days on a continuously monitored blood culture system. The first report of a negative culture is issued within 24 hours of receipt of the specimen in the laboratory. 2. Positive culture results are reported as soon as they are detected. 3. The most important factor for detection of microbes in the setting of bloodstream infection is the volume of blood submitted for culture. Failure to collect an optimal blood volume can result in false negative blood cultures. 4. For pediatric patients, the recommended blood volume to collect follows a weight based strategy. See the electronic test catalog for collection instructions. 5. For positive blood cultures, a rapid molecular test may be performed for organism identification using the kathia ePlex blood culture identification panel for gram positive (BCID-GP) and gram negative (BCID-GN) organisms. This nucleic acid amplification test detects microbial DNA in positive blood culture broth. This assay has been cleared by the [place] Food and Drug Administration and its performance characteristics have been verified by the [facility]. For questions about this culture, contact the Microbiology Laboratory at [phone]. Interpretive data was last revised on 24. us Angela Kirk MD LAB MICROBIOLOGY - GENERAL ORDERABLES Final Result KATALINA MCKEON [address] [facility] [place] [address] * (ABNORMAL) Urinalysis reflex to microscopic and culture Urine (09/26/2024 6:27 PM CDT) Color, ur Yellow Yellow Clarity, ur Turbid(A) Clear KATALINA MCKEON Specific gravity, ur 1.013 1.003 - 1.030 [facility] pH, urine 5.5 [facility] Comment: Interpretive Data U rine pH is affected by diet, medications, systemic acid-base disturbances, and renal tubular function. pH may affect urinary stone formation. For example, urine pH below 6.0 may help reduce the tendency for calcium phosphate stones and pH greater than 6.0 may reduce the tendency for uric acid stone formation. Source: [facility] Current Interpretive Data was last revised on 2017 Protein, ur ql 2+(A) Negative [facility] Glucose, ur ql Negative Negative [facility] Ketones, ur Negative Negative [facility] Bilirubin, ur Negative Negative [facility] Blood, ur 2+(A) Negative [facility] Urobilinogen, ur 4.0(A) <2.0 mg/dL [facility] Nitrite, ur Negative Negative [facility] Leukocyte esterase, ur 4+(A) Negative [facility] UA reflex comment Reflex to microscopic UA will be performed. [facility] Urine 09/26/2024 6:27 PM CDT 09/26/2024 6:31 PM CDT Deacon BANKS LAB MICROBIOLOGY - GENERAL O RDERABLES Final Result Performing Organization Address [facility] de Phone Number [address] [place] [address] * (ABNORMAL) Urinalysis, microscopic only (09/26/2024 6:27 PM CDT) WBC, ur >50(A) 0 - 5 /HPF RBC, ur 11-20(A) 0 - 2 /HPF [facility] Epithelial cells, squamous, ur 1-5 0 - 5 /HPF [facility] Bacteria, ur 4+(A) [facility] Culture Reflex Comment Reflex to urine culture will be performed. [facility] Urine 09/26/2024 6:27 PM CDT 09/26/2024 6:31 PM CDT Deacon BANKS LAB URINE ORDERABLES Final R esult Performing Organization Address [facility] Co de Phone Number [place] [phone] [facility] [place] [address] * (ABNORMAL) Urine culture Urine (09/26/2024 6:27 PM CDT) Report Final Report: Greater than or equal to 100,000 colonies/mL of Escherichia coli Plus growth of clinically insignificant bacterial guzman. (.) Comment:Testing performed by : [facility], [address] [place]., [address] Organism ESCHERICHIA COLI [facility] Organism PLUS GROWTH OF CLINICALLY INSIGNIFICANT GUZMAN. [facility] Urine 09/26/2024 6:27 PM CDT 09/26/2024 9:46 PM CDT Narrative [facility] - 09/28/2024 4:58 PM CDT Urine culture reflexed based upon urinalysis results. Testing performed by [facility] ([phone]) Organism Antibiotic Method Susceptibility Escherichia coli Ampicillin INTERPRETATION Susceptible Escherichia coli Cefazolin INTERPRETATION Susceptible Escherichia coli Nitrofurantoin INTERPRETATION Susceptible Escherichia coli Gentamicin INTERPRETATION Susceptible Escherichia coli Trimethoprim with Sulfamethoxazole IN TERPRETATION Susceptible Escherichia coli Meropenem INTERPRETATION Susceptible Escherichia coli Cefepime INTERPRETATION Susceptible Escherichia coli Ciprofloxacin INTERPRETATION Susceptible Escherichia coli Ceftazidime INTERPRETATION Susceptible Escherichia coli Ceftriaxone INTERPRETATION Susceptible Escherichia coli Piperacillin/Tazobactam INTERPRETATIO N Susceptible Escherichia coli Cephalexin INTERPRETATION Susceptible Escherichia coli Cefuroxime-axetil INTERPRETATION Susceptible Escherichia coli Cefdinir INTERPRETATION Susceptible Deacon BANKS LAB MICROBIOLOGY - GENERAL O RDERABLES Final Result [facility] [address] [facility] [place] [address] * (ABNORMAL) Troponin T high-sensitivity 2-hour (09/26/2024 5:45 PM CDT) Trop T hs 46(H) <=14 ng/L Comment: Interpretive Data For further hscTnT resources including the diagnostic algorithm and an aid in interpretation, copy and paste this link: https://nrl.testcatalog.org/show/hsTrop Current Interpretive Data last revised 2020. Trop T hs delta -2 ng/L KATALINA MCKEON Trop T hs interp Insignificant KATALINA MCKEON Blood 09/26/2024 5:45 PM CDT 09/26/2024 5:47 PM CDT Sailaja BANKS LAB BLOOD ORDERABLES Final Result KATALINA MCKEON [address] [facility] [place] [address] * XR Chest 1 Vw Portable (if patient condition/safety warrant portable) (09/26/2024 3:46 PM CDT) Anatomical Region Laterality Modality Body, Chest N/A Computed Radiogr aphy 09/26/2024 4:32 PM CDT Narrative 09/26/2024 4:33 PM CDT EXAM DESCRIPTION: XR CHEST 1 VIEW REASON FOR STUDY: Shortness of breath BIBEMS from [facility]. Pt states to increased SOB, weakness, bilateral lower extremity swelling for the last week. States to taking medication as rx. Pt went to PCP today and was told her O2 level was low. Pt then drove back to [facility] where they checked her O2 and pt states it was 100%. Pt O2 on arrival to ED and for EMS was 100%. Pt denies n/v/d, fever/ chills, CP. Pt states to having PRN order for O2, states that for the last week to requiring O2 intermittently and at night for the last week. TECHNIQUE: Single radiographic view(s) of the chest. COMPARISON: 10/09/2023 FINDINGS: LUNGS: Minor chronic lung changes are noted. No consolidation, effusion or other acute process is seen. HEART/MEDIASTINUM: Cardiac silhouette prominent in size. Mediastinal and hilar contours appear normal. LINES/TUBES: Left-sided pacing device is noted. BONES: No acute osseous abnormality. IMPRESSION: No acute cardiopulmonary abnormality. THIS IS AN ELECTRONICALLY VERIFIED FINAL REPORT 09/26/2024 4:33 PM - Electronically signed by Fredy Adler M.D. T: Report ID: [id number] Reading Location: [place] [address] Procedure Note Fredy Adler MD - 09/26/2024 EXAM DESCRIPTION: XR CHEST 1 VIEW REASON FOR STUDY: Shortness of breath BIBEMS from [facility]. Pt states to increased SOB, weakness, bilateral lower extremity swelling for the last week. States totaking medication as rx. Pt went to PCP today and was told her O2 level waslow. Pt then drove back to [facility] where they checked her O2 and pt states it was 100%. Pt O2 on arrival to ED and for EMS was 100%. Pt denies n/v/d, fever/ chills, CP. Pt states to having PRN order for O2, states thatfor the last week to requiring O2 intermittently and at night for the lastweek. TECHNIQUE: Single radiographic view(s) of the chest. COMPARISON: 10/09/2023 FINDINGS: LUNGS: Minor chronic lung changes are noted. No consolidation, effusion or other acute process is seen. HEART/MEDIASTINUM: Cardiac silhouette prominent in size. Mediastinal and hilar contours appear normal. LINES/TUBES: Left-sided pacing device is noted. BONES: No acute osseous abnormality. IMPRESSION: No acute cardiopulmonary abnormality. THIS IS AN ELECTRONICALLY VERIFIED FINAL REPORT 09/26/2024 4:33 PM - Electronically signed by Fredy Adler M.D. T: Report ID: [id number] Reading Location: [place] [address] Angela Kirk MD IMG XR PROCEDURES Final Res ult * ECG 12 lead (09/26/2024 3:29 PM CDT) Ventricular Rate EKG/Min 112 BPM [facility] Atrial Rate 122 BPM [facility] QRS-Interval (MSEC) 134 ms [facility] QT-Interval (MSEC) 306 ms [facility] QTc 417 ms [facility] R [place] -16 degrees [facility] T [place] 196 degrees [facility] Diagnosis Atrial fibrillation with rapid ventricular response with premature ventricular or aberrantly conducted complexes Non-specific intra-ventricul ar conduction block T wave abnormality, consider inferior ischemia Abnormal ECG When compared with ECG of 06-OCT-2023 15:19, Atrial fibrillation has replaced Sinus rhythm Confirmed by PIPO CALVO M.D. ([id number]) on 09/27/2024 12:34:53 PM [facility] 09/26/2024 3:29 PM CDT 09/27/2024 12:34 PM CDT Angela Kirk MD ECG ORDERABLES Final Resul t Performing Organization Address City/[facility] de Phone Number [facility] V[employer]osures [facility] * (ABNORMAL) Troponin T high-sensitivity series (baseline, 2hr, 4hr, 6hr) (09/26/2024 3:15 PM CDT) [facility] Trop T hs 48(H) <=14 ng/L Comment: Interpretive Data For further hscTnT resources including the diagnostic algorithm and an aid in interpretation, copy and paste this link: https://nrl.testcatalog.org/show/hsTrop Current Interpretive Data last revised 2020. Blood 09/26/2024 3:15 PM CDT 09/26/2024 3:23 PM CDT Angela Kirk MD LAB BLOOD ORDERABLES Final Result Performing Organization Address [facility] de Phone Number [facility] [address] [facility] [place] [address] * Influenza A/B, RSV, and COVID-19 PCR Nasopharyngeal (09/26/2024 3:15 PM CDT) [facility] COVID-19 RNA Negative Negative Influenza A RNA Negative Negative KATALINA Influenza B RNA Negative Negative KATALINA RSV RNA Negative Negative [facility] Comment: Interpretive data: Testing performed by [facility]. This test is performed using the [employer] Xpert Xpress CoV-2/Flu/RSV plus assay. This is a multiplex, real-time reverse transcriptase PCR assay intended for the qualitative detection of nucleic acid from SARS-CoV-2, influenza A, influenza B, and respiratory syncytial virus. This assay has been cleared by the [place] Food and Drug administration. The performance characteristics have been verified by the [facility]. Results must be considered in the clinical context, and a negative result does not rule out infection. Interpretive Data last revised 2023 Nasopharyngeal 09/26/2024 3: 15 PM CDT 09/26/2024 3:23 PM CDT Narrative KATALINA - 09/26/2024 4:03 PM CDT Is the Patient experiencing symptoms consistent with COVID?->No Angela Kirk MD LAB MICROBIOLOGY - GENERAL ORDERABLES Final Result Performing Organization Address City/[facility]/ZIP Co de Phone Number KATALINA [address] [place] [address] * (ABNORMAL) eGFR (09/26/2024 3:15 PM CDT) eGFR 36(L) >=60 mL/min/1. 73 m2 Comment: Interpretive Data Reference Interval Normal >/= 90 mL/min/1.73m2 Mildly decreased* 60 - 89 mL/min/1.73m2 Mildly to moderately decreased 45 - 59 mL/min/1.73m2 Moderately to severely decreased 30 - 44 mL/min/1.73m2 Severely decreased 15 - 29 mL/min/1.73m2 Kidney Failure < 15 mL/min/1.73m2 *Relative to young adult level Estimated glomerular filtration rate is determined by the 2020 CKD-EPI equation recommended by the National Kidney Foundation (A Unifying Approach to GFR Estimation: Recommendations of the NKF-ASK Task Force on Reassessing the Inclusion of Race in Diagnosing Kidney Disease, JASN 2020). The CKD-EPI equation should not be used for patients with unstable renal function and has not been validated in children and those over 70. Current interpretive data was last reviewed 2021. Blood 09/26/2024 3:15 PM CDT 09/26/2024 3:23 PM CDT Angela Kirk MD LAB BLOOD ORDERABLES Final Result [facility] [address] [facility] [place] [address] * (ABNORMAL) Differential, auto (09/26/2024 3:15 PM CDT) Neutrophil abs 4.26 1.50 - 6.50 K/cumm Imm gran abs 0.02 0.00 - 0.10 K/cumm [facility] Lymphocyte abs 1.56 0.80 - 3.30 K/cumm [facility] Monocyte abs 0.48 0.20 - 0.80 K/cumm [facility] Eosinophil abs 0.76(H) 0.00 - 0.50 K/cumm [facility] Basophil abs 0.10 0.00 - 0.10 K/cumm [facility] Neutrophil pct 59.3 % [facility] Comment: Interpretive Data Percent cell count reference ranges are not reported, since discordance with absolute values may lead to misinterpretation of CBC data. Current Interpretive Data was last revised on 2017. Imm gran pct 0.3 % [facility] Comment: Interpretive Data Percent cell count reference ranges are not reported, since discordance with absolute values may lead to misinterpretation of CBC data. Current Interpretive Data was last revised on 2017. Lymphocyte pct 21.7 % [facility] Comment: Interpretive Data Percent cell count reference ranges are not reported, since discordance with absolute values may lead to misinterpretation of CBC data. Current Interpretive Data was last revised on 2017. Monocyte pct 6.7 % [facility] Comment: Interpretive Data Percent cell count reference ranges are not reported, since discordance with absolute values may lead to misinterpretation of CBC data. Current Interpretive Data was last revised on 2017. Eosinophil pct 10.6 % [facility] Comment: Interpretive Data Percent cell count reference ranges are not reported, since discordance with absolute values may lead to misinterpretation of CBC data. Current Interpretive Data was last revised on 2017. Basophil pct 1.4 % [facility] Comment: Interpretive Data Percent cell count reference ranges are not reported, since discordance with absolute values may lead to misinterpretation of CBC data. Current Interpretive Data was last revised on 2017. Blood 09/26/2024 3:15 PM CDT 09/26/2024 3:23 PM CDT us Angela Kirk MD LAB BLOOD ORDERABLES Final Result KATALINA MH [address] [facility] [place] [address] * (ABNORMAL) Pro B-type natriuretic peptide (09/26/2024 3:15 PM CDT) NT-proBNP 19,223(H) <=300 pg/mL Comment: Interpretive Comments: A. Dyspnea in Acute Care Setting All Ages: < 300 pg/ml, acute heart failure unlikely. < 50 yrs: 300 - 450 pg/ml, further investigation warranted. > 450 pg/ml, acute heart failure likely. 50 - 74 yrs: 300 - 900 pg/ml, further investigation warranted. > 900 pg/ml, acute heart failure likely . > or = 75 yrs: 450 - 1800 pg/ml, further investigation warranted. > 1800 pg/ml, acute heart failure likely. B. Non-acute Setting < 75 yrs < 125 pg/ml, rules out heart failure. > or = 125 pg/ml, further investigation warranted. > or = 75 yrs < 450 pg/ml, rules out heart failure. > or = 450 pg/ml, further investigation warranted. - Knowledge of each individual patient's NT-proBNP range may be more useful than using similar cut-points for every patient. Please note that marked elevations in NT-proBNP levels may be observed in state other than Left Ventricular Congestive Failure, including: acute coronary syndromes, right heart strain/failure (including pulmonary embolism and cor pulmonale), critical illness, renal failure, as well as advanced age. - References: 1. Amanda VAN et.al. Eur Heart J. 2006:27:330-337. 2. Vilma RW, Ruddy AM. J. AM Marcello Cardiol: Cardiovasc Imag. 2009;2: 216- 225. Interpretive Data Last Revised Date: 2018. Blood 09/26/2024 3:15 PM CDT 09/26/2024 3:23 PM CDT us Deacon BANKS LAB BLOOD ORDERABLES Final R esult Performing Organization Address [facility] Co de Phone Number [address] [address] * (ABNORMAL) CBC with auto differential (09/26/2024 3:15 PM CDT) [facility] WBC 7.18 3.80 - 9.90 K/cumm Hgb 14.4 11.9 - 15.5 g/dL [facility] Hct 45.7(H) 35.6 - 45.5 % [facility] Plt 154 150 - 400 K/cumm [facility] MPV 9.3 9.1 - 12.3 fL [facility] RBC 4.89 3.90 - 5.20 M/cumm [facility] MCV 93.5 81.3 - 96.4 fL [facility] MCH 29.4 27.1 - 33.3 pg [facility] MCHC 31.5(L) 32.3 - 35.7 g/dL [facility] RDW CV 14.6 11.1 - 14.9 % [facility] RDW SD 49.4(H) 35.7 - 48.1 fL [facility] NRBC abs 0.00 0.00 - 0.01 K/cumm [facility] Blood 09/26/2024 3:15 PM CDT 09/26/2024 3:23 PM CDT us Angela Kirk MD LAB BLOOD ORDERABLES Final Result Performing Organization Address [facility] Co de Phone Number [address] [place] [address] * (ABNORMAL) Comprehensive metabolic panel (09/26/2024 3:15 PM CDT) [facility] Sodium 137 135 - 145 mmol/L Potassium, pl 3.5 3.3 - 4.9 mmol/L [facility] Chloride 99 97 - 110 mmol/L [facility] CO2 23 22 - 32 mmol/L [facility] Anion gap 15 2 - 15 mmol/L [facility] BUN 20 6 - 25 mg/dL [facility] Creatinine 1.66(H) 0.60 - 1.10 mg/dL [facility] Glucose 115 70 - 199 mg/dL [facility] Comment: Interpretive Data Fasting glucose >/= 126 mg/dl is diagnostic for diabetes. Fasting is defined as no caloric intake for at least 8 hours. Fasting glucose between 100 mg/dl to 125 mg/dl is diagnostic of prediabetes. In a patient with classic symptoms of hyperglycemia or hyperglycemic crisis, a random glucose >/= 200 mg/dl is diagnostic for diabetes. In the absence of unequivocal hyperglycemia, results should be confirmed by repeat testing. The classification and Diagnosis of Diabetes Diabetes Care 2021; 46: S19-S40. Current interpretive data was last revised 2022. Calcium 9.6 8.5 - 10.3 mg/dL [facility] Bilirubin, total 3.0(H) 0.1 - 1.2 mg/dL [facility] Protein, pl 7.6 6.5 - 8.5 g/dL [facility] Albumin 3.7 3.5 - 5.0 g/dL [facility] Alk phos 118 40 - 130 Units/L [facility] ALT 35 7 - 45 Units/L [facility] AST 46(H) 10 - 45 Units/L [facility] Blood 09/26/2024 3:15 PM CDT 09/26/2024 3:23 PM CDT Angela Kirk MD LAB BLOOD ORDERABLES Final Result Performing Organization Address City/State/[facility] de Phone Number [facility] [address] [facility] [place] [address] from Last 3 Months Insurance [facility] Member Subscriber Plan / Payer (Ef fective 2022-Present) Name:Varun Sanabria Relation to Subscriber:Self Name:Varun Sanabria Payer ID:[id number] (NAIC) Group ID:Not on file Type:MEDICAID RISK OTHER Address: ATTN: CLAIMS DEPT [address] [place] [id number] [facility] Advance Directives For more information, please contact: [phone] Documents on File Type Date 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 ADVANCE DIRECTIVE 02/18/2022 2:53 PM 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 * Full Code (Latest Code Status on File) Date Activated Date Inactivated Comments 09/26/2024 11:29 PM 10/02/2024 7:33 PM * Full Code Date Activated Date Inactivated Comments 10/06/2023 9:22 PM 10/11/2023 6:59 PM * Full Code Date Activated Date Inactivated Comments 09/14/2022 3:55 PM 09/15/2022 3:31 PM * Full Code Date Activated Date Inactivated Comments 02/18/2022 3:21 AM 02/24/2022 12:30 AM 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
--- OUTSIDE RECORDS SUMMARY | 2024-11-25 22:39 | XMS_ITS | Referral Summary ---
Author Organization [facility] Virtual Care Address [address] [place] [phone] Phone Care Team Providers Care Plastics Process Hand Name Role Phone Soumya Araujo MD Primary Care Provider [phone] Sultan Louis Cao MD Unavailable [phone] Encounters Date Type Department Care Team Description 11/19/2024 Home Care Visit [place] [address] [address] [place] [phone] Rosangela Chauhan, PT PT NON ADMIT 11/19/2024 Travel 11/19/2024 Telephone [facility] [address] [place] [address] Rosette Mckeon RN 11/19/2024 Telephone [facility] [address] [place] [address] Rosette Mckeon, RN 11/19/2024 Telephone [facility] [address] [place] [phone] Rosette Mckeon RN 11/19/2024 Telephone [facility] [address] [place] [address] Rosette Mckeon, RN 11/19/2024 Telephone [facility] [address] [place] [phone] Rosette Mckeon RN 10/07/2024 TCC Subsequent Outreach [facility] [address] [place] [address] Jorge Jack, RN 09/26/2024 5:33 PM CDT - 10/02/2024 3:15 PM CDT Hospital Encounter [facility] [address] [place] [address] Angela Kirk MD Georgiyev, Sergiy, MD Saturno Arias, MD Aaliyah Torres Saim, DO Winston, Carlo Leal MD Acute on chronic congestive heart failure, unspecified heart failure type (HCC) (Primary Dx); Acute UTI Discharge Disposition: [facility] to [facility] facility 09/27/2024 TCC Initial Eligibility Review [facility] [address] [place] [address] Jorge Jack, RN from Last 3 Months Allergies Active Allergy Reactions Criticality Noted Date [...] total) by mouth daily 4 Active vit F-O-axfpup-zinc -lutein 226-90-0.8-5 mg capsule Take 1 capsule [...] mg total) by mouth daily 15 tablet Active empagliflozin (JARDIANCE) 10 mg tabletIndicatio ns:Heart Failure Take 1 tablet (10 mg total) by mouth daily 30 tablet Active carvediloL (COREG) 6.25 mg tablet Take [...] & Plan (10/02/2024 3:08 PM CDT): Consulting plastic parts fabricator felt this was related to the patient's [...] & Plan (10/01/2024 2:22 PM CDT): Consulting plastic parts fabricator felt this was related to the patient's sepsis. patient already has ICD in place in left upper chest. Patient denies any shocks/defibrillation. - device interrogation ordered and remains pending. Continue patient on Coreg 6.25 mg BID. Patient is on continuous telemetry. Telemetry reviewed and no further ventricular ectopy noted in the past 24 hours. Typical atrial flutter 11/17/2023 Paroxysmal atrial fibrillation 11/17/2023 assisted current use of anticoagulant 4 High risk medication use 11/17/2023 ICD (implantable cardioverter-defibrillator) in place 11/17/2023 Overview (07/23/2024): [employer] 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VT, NICM w/ HFrEF, PAF, PAT . DOI 02/22/2022 Dr. Colin Augustin remote monitoring CKD (chronic kidney disease) 09/14/2022 [...] Date Resolved Date SANDRA (acute kidney injury) Immunizations Immunization Administration Dates Next Due Tdap 03/11/2022 Social History Tobacco Use Types Packs/Day Years Used Date Smoking Tobacco: Never Smokeless Tobacco: Never Alcohol Use Standard Drinks/Week Comments Never 0 (1 standard drink = 0.6 oz pur e alcohol) [facility] Utilities Answer Date Recorded In the past 12 months has [employer], gas, oil, or water [employer] threatened to shut off services in your home? No 09/27/2024 Social Connection and Isolation Panel [NHANES] A nswer Date Recorded In a typical week, how many times do you talk on the phone with family, friends, or neighbors? Never 09/27/2024 How often do you get together with friends or re latives? Never 09/27/2024 How often do you attend muslim or mandaeism serv ices? Never 09/27/2024 Do you belong to any clubs o r organizations such as muslim groups, unions, fraternal or athletic groups, or [...] place to sleep or slept in a mcc (including now)? Patient declined 10/09/2023 Housing Stability [...] any time in the past 12 m [facility], were you homeless or living in a mcc (including now)? No 09/27/2024 Personal Safety Answer Date Recorded Have you ever been in or are you currently in a harmful physical or emotional relationship or is someone making you feel afraid or unsafe? 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 Gender Identity Female 01/10/2024 9:21 AM CDT Sexual Orientation Straight 01/10/2024 9: 21 AM CDT Last Filed Vital Signs Vital Sign Reading [...] 09/26/2024 10:57 PM CDT Plan of Treatment Not on file Medical Devices Implanted Type Area Radiator Mechanic Device Identifier Shelf Expiration Date Model / Serial / Lot [employer] Vascade Mvp 6-12fr Venous Closure [id number] - [id number] - [id number] Implanted:Qty: 1 on 09/14/2022 by Parminder Meadows MD at [facility] Collagen Right: Femoral [employer] 04/25/2024 800-612C -10U / [id number] / [id number] [employer] Vascade Mvp 6-12fr Venous Closure [id number] - [id number] - [id number] Implanted:Qty: 1 on 09/14/2022 by Parminder Meadows MD at [facility] Collagen Right: Femoral [employer] 05/30/2024 800-612C -10U / [id number] 212C / [id number] 212C [employer] Vascade Mvp 6-12fr Venous Closure [id number] - [id number] - [id number] Implanted:Qty: 1 on 09/14/2022 by Parminder Meadows MD at [facility] Collagen Left: Femoral [employer] 05/30/2024 800-612C -10U / [id number] 212C / [id number] 212C [employer] Vascade Mvp 6-12fr Venous Closure [id number] - [id number] - [id number] Implanted:Qty: 1 on 09/14/2022 by Parminder Meadows MD at [facility] Collagen Left: Femoral [employer] 05/30/2024 800-612C -10U / [id number] 212C / [id number] 212C PaperV Angio-Seal Vip 6fr Closere Device [id number] - [id number] Implanted:Qty: 1 on 02/18/2022 by Duke Armenta MD at [facility] PaperV 11/16/2022 [id number] / / [id number] [employer]gold [employer] Dynagen Enduralife Easyview Hf Perspectiv 5.37x7.68cm 2 Chamber D152 - [id number] - [id number] Implanted:Qty: 1 on 02/22/2022 by Jordy Patton MD at [facility] [employer] [id number] 09/23/2023 D152 / [id number] / [employer] Kermit [place] 4-Front 59cm Active Fixation Lead Icd 0672 - [id number] - [id number] Implanted:Qty: 1 on 02/22/2022 by Jordy Patton MD at [facility] [employer] Kermit [id number] 09/23/2023 0672 / [id number] / [employer] Lead 7841 Endocardial Pacing Mr Is-1 Bipolar Connection 7841 - [id number] - [id number] Implanted:Qty: 1 on 02/22/2022 by Jordy Patton MD at [facility] [employer] Kermit [id number] 02/04/2024 7841 / [id number] / Medtronic Inc Tyrx Absorbable Antibacterial Envelope-Large 3.3x2.9in [id number] - [id number] Implanted:Qty: 1 on 02/22/2022 by Jordy Patton MD at [facility] [employer] [id number] / / Procedures Procedure Name Priority Date/Time [...] Dominguez MD LAB BLOOD ORDERABLES Final Result [facility] [address] [facility] [place] [address] * (ABNORMAL) Pro B-type natriuretic peptide (10/02/2024 [...] AM CDT 10/02/2024 10:13 AM CDT us Soumya Marcelo GLUE MACHINE OPERATOR LAB BLOOD ORDERABLES Final Res ult [facility] [address] [facility] [place] [address] * Magnesium (10/02/2024 9:49 AM CDT) Magnesium 1.8 1.4 - 2.5 mg/dL Blood 10/02/2024 9:49 AM CDT 10/02/2024 10:13 AM CDT us Soumya Marcelo GLUE MACHINE OPERATOR LAB BLOOD ORDERABLES Final Res ult [facility] [address] [facility] Department [place] [address] * (ABNORMAL) Comprehensive metabolic panel (10/02/2024 9:49 AM CDT) Sodium 133(L) 135 - 145 mmol/L Potassium, pl 4.6 3.3 - 4.9 mmol/L [facility] Comment:Hemolyzed; Potassium value may be falsely elevated by as much as 1.0 mmol/L. Suggest redraw and reanalysis. Chloride 99 97 - 110 mmol/L [facility] CO2 24 22 - 32 mmol/L [facility] Anion gap 10 2 - 15 mmol/L [facility] BUN 29(H) 6 - 25 mg/dL [facility] Creatinine 1.72(H) 0.60 - 1.10 mg/dL [facility] Glucose 74 70 - 199 mg/dL [facility] Comment: Interpretive Data Fasting glucose >/= 126 [...] 2022. Calcium 9.1 8.5 - 10.3 mg/dL [facility] Bilirubin, total 2.4(H) 0.1 - 1.2 mg/dL [facility] Protein, pl 6.3(L) 6.5 - 8.5 g/dL [facility] Albumin 2.9(L) 3.5 - 5.0 g/dL [facility] Alk phos 95 40 - 130 Units/L [facility] ALT 26 7 - 45 Units/L [facility] AST See Comment 10 [facility] Comment:Credited; Hemolyzed Specimen Blood 10/02/2024 9:49 AM CDT 10/02/2024 10:13 AM CDT us Ethan Dominguez MD LAB BLOOD ORDERABLES Final Result Performing Organization Address [facility] Co de Phone Number KATALINA [address] [address] * (ABNORMAL) Hemoglobin A1c (10/01/2024 2:13 PM CDT) Pathologist [facility] Hgb A1C 6.0(H) 4.0 - 5.6 % Estimated Average Glucose 126 mg/dL [facility] Comment: The ADA recommends reporting an estimated Average Glucose (eAG) with all Hemoglobin A1c results using the equation derived from a study of 507 normal and diabetic adults. Minority populations were underrepresented and children were not included. (Diabetes Care 31:1244-2214, 2008). The eAG is not equivalent to a fasting glucose. Blood 10/01/2024 2:13 PM CDT 10/01/2024 3:17 PM CDT us Soumya Marcelo NP LAB BLOOD ORDERABLES Final Res ult Performing Organization Address [facility] Co de Phone Number [id number] [address] * ECG 12 lead (10/01/2024 9:52 AM CDT) [facility] Ventricular Rate EKG/Min 74 BPM [facility] Atrial Rate 74 BPM [facility] MN-Interval (MSEC) 156 ms [facility] QRS-Interval (MSEC) 138 ms [facility] QT-Interval (MSEC) 470 ms [facility] QTc 521 ms [facility] R [place] 8 degrees [facility] T [place] 230 degrees [facility] Diagnosis Sinus rhythm with marked sinus arrhythmia Non-specific intra-ventricula r conduction block T wave abnormality, consider inferolateral ischemia Abnormal ECG When compared with ECG of 30-SEP-2024 16:01, Sinus rhythm has replaced Ectopic atrial rhythm Confirmed by SULTAN CAO M.D. ([id number]) on 10/01/2024 4:19:42 PM [facility] 10/01/2024 9:52 AM CDT 10/01/2024 4:19 PM CDT us Ethan Dominguez MD ECG ORDERABLES Final Result [facility] * Magnesium - Add on lab test (10/01/2024 9:00 AM CDT) Acceptable Yes Blood 10/01/2024 9:00 AM CDT 10/01/2024 9:00 AM CDT Narrative KATALINA - 10/01/2024 9:01 AM CDT Name of Test->Magnesium Ethan Dominguez MD LAB BLOOD ORDERABLES Final Result Performing Organization Address City/[facility]/ZIP Co de Phone Number KATALINA [address] [facility] Department of Laboratories [place] [phone] * (ABNORMAL) eGFR (10/01/2024 6:17 AM CDT) eGFR 34(L) >=60 mL/min/1. 73 [...] MD LAB BLOOD ORDERABLES Final Result KATALINA [address] [facility] [place] [address] * (ABNORMAL) Pro B-type natriuretic peptide (10/01/2024 6:17 AM CDT) NT-proBNP 12,984(H) <=300 pg/mL Comment: Interpretive Comments: [...] BLOOD ORDERABLES Final Result Performing Organization Address City/[facility]/ZIP Co de Phone Number [address] [address] * (ABNORMAL) TSH (10/01/2024 6:17 AM CDT) Thyroid Stimulating Hormone 7.85(H) 0.30 - 4.20 mcIUnit/mL Blood 10/01/2024 6:17 AM CDT 10/01/2024 6:25 AM CDT Ethan Dominguez MD LAB BLOOD ORDERABLES Final Result Performing Organization Address [facility] de Phone Number [address] [address] * Phosphorus (10/01/2024 6:17 AM CDT) Pathologist [facility] Phosphorus, pl 4.3 2.3 - 4.5 mg/dL Blood 10/01/2024 6:17 AM CDT 10/01/2024 6:25 AM CDT Ethan Dominguez MD LAB BLOOD ORDERABLES Final Result Performing Organization Address [facility] Co de Phone Number [address] [address] * Magnesium (10/01/2024 6:17 AM CDT) [facility] Magnesium 1.8 1.4 - 2.5 mg/dL Blood 10/01/2024 6:17 AM CDT 10/01/2024 6:25 AM CDT Ethan Dominguez MD LAB BLOOD ORDERABLES Final Result Performing Organization Address City/[facility]/ZIP Co de Phone Number [address] [email or web address] [address] * (ABNORMAL) Lipid panel (10/01/2024 6:17 AM CDT) Cholesterol 72 30 - 199 mg/dL Comment: [...] NCEP Expert Panel. Circulation 2004;110:227 3. Wesley Membreno et al. MARQUES Cardiol. 2019October 17;5(5):540-548. doi: 10.1001/jamacardio.2020.0013 Current Interpretive Data was [...] last revised on 2018. Chol/HDL ratio 3 KATALINA Blood 10/01/2024 6:17 AM CDT 10/01/2024 6:25 AM CDT Ethan Dominguez MD LAB BLOOD ORDERABLES Final Result K[facility]ALINA [address] [facility] Department [place] [address] * (ABNORMAL) Comprehensive metabolic panel (10/01/2024 6:17 AM CDT) Sodium 137 135 - 145 mmol/L Potassium, pl 4.7 3.3 - 4.9 mmol/L [facility] Chloride 103 97 - 110 mmol/L [facility] CO2 22 22 - 32 mmol/L [facility] Anion gap 12 2 - 15 mmol/L [facility] BUN 29(H) 6 - 25 mg/dL [facility] Creatinine 1.72(H) 0.60 - 1.10 mg/dL [facility] Glucose 84 70 - 199 mg/dL [facility] Comment: Interpretive Data Fasting glucose >/= 126 [...] 2022. Calcium 9.4 8.5 - 10.3 mg/dL [facility] Bilirubin, total 2.3(H) 0.1 - 1.2 mg/dL [facility] Protein, pl 6.9 6.5 - 8.5 g/dL [facility] Albumin 3.3(L) 3.5 - 5.0 g/dL [facility] Alk phos 93 40 - 130 Units/L [facility] ALT 24 7 - 45 Units/L [facility] AST 45 10 - 45 Units/L [facility] Blood 10/01/2024 6:17 AM CDT 10/01/2024 6:25 AM CDT Ethan Dominguez MD LAB BLOOD ORDERABLES Final Result [facility] [address] [facility] Department [place] [address] * ECG 12 lead (09/30/2024 4:01 PM CDT) Pathologist [facility] Ventricular Rate EKG/Min 74 BPM [facility] Atrial Rate 74 BPM [facility] MN-Interval (MSEC) 156 ms [facility] QRS-Interval (MSEC) 136 ms [facility] QT-Interval (MSEC) 464 ms [facility] QTc 515 ms [facility] P [place] 153 degrees [facility] R [place] 31 degrees [facility] T [place] 222 degrees [facility] Diagnosis Unusual P axis, possible ectopic atrial rhythm Non-specific intra-ventricula r conduction block Minimal voltage criteria for LVH, may be normal variant ( [place] product ) T wave abnormality, consider inferolateral ischemia Abnormal ECG When compared with ECG of 29-SEP-2024 10:29, Ectopic atrial rhythm has replaced Electronic atrial pacemaker QRS axis Shifted left T wave inversion now evident in Lateral leads Confirmed by BRI TSAI M.D. ([id number]) on 10/01/2024 8:26:53 AM [facility] 09/30/2024 4:01 PM CDT 10/01/2024 8:26 AM CDT us Ethan Dominguez MD ECG ORDERABLES Final Result Performing Organization Address City/[facility]/ZIP Co de Phone Number [facility] * CP-CRE culture, surveillance Rectal swab (09/30/2024 3:45 PM CDT) Report Final Report: Negative Comment:Testing performed by : [facility], [address] [place]., [address] Rectal swab 09/30/2024 3:45 PM CDT 09/30/2024 6:04 PM CDT Narrative KATALINA - 10/02/2024 12:18 PM CDT Interpretive Data The screening agar used for the detection of carbapenemase-producing Enterobacterales (CP-CRE) has not been approved by the Food and Drug Administration. The performance characteristics of this medium have been evaluated and verified by the [facility]. This media demonstrates highest sensitivity for KPC and NDM-1 producing isolates. This screening assay is exclusively intended for infection control and surveillance, not for patient diagnosis or treatment purposes. Current interpretive data was last revised on 2023. us Eddie Manzanares MD LAB MICROBIOLOGY - GENERAL O RDERABLES Final Result [facility] [address] [facility] Department [place] [address] * Magnesium (09/30/2024 8:20 AM CDT) Pathologist [facility] Magnesium 1.8 1.4 - 2.5 mg/dL Blood 09/30/2024 8:20 AM CDT 09/30/2024 8:48 AM CDT Ethan Dominguez MD LAB BLOOD ORDERABLES Final Result Performing Organization Address [facility] Co de Phone Number [address]ERNARD[address] [place] [address] * Magnesium - Add on lab test (09/30/2024 7:14 AM CDT) Pathologist [facility] Acceptable Yes Blood 09/30/2024 7:14 AM CDT 09/30/2024 7:14 AM CDT Narrative [facility] 09/30/2024 7:15 AM CDT Name of Test->Magnesium Ethan Dominguez MD LAB BLOOD ORDERABLES Final Result Performing Organization Address City/[facility] de Phone Number [address] [email or web address] [address] * (ABNORMAL) eGFR (09/30/2024 4:08 AM CDT) Pathologist [facility] eGFR 34(L) >=60 mL/min/1. 73 m2 Comment: [...] BLOOD ORDERABLES Final Result Performing Organization Address [facility] Co de Phone Number [address] [email or web address] [address] * Magnesium (09/30/2024 4:08 AM CDT) [facility] Magnesium 2.0 1.4 - 2.5 mg/dL Blood 09/30/2024 4:08 AM CDT 09/30/2024 4:40 AM CDT Ethan Dominguez MD LAB BLOOD ORDERABLES Final Result Performing Organization Address [facility] de Phone Number [address] [email or web address] [address] * (ABNORMAL) Comprehensive metabolic panel (09/30/2024 4:08 AM CDT) Pathologist [facility] Sodium 133(L) 135 - 145 mmol/L Potassium, pl 4.5 3.3 - 4.9 mmol/L [facility] Comment:Hemolyzed; Potassium value may be falsely elevated by as much as 1.0 mmol/L. Suggest redraw and reanalysis. Chloride 101 97 - 110 mmol/L [facility] CO2 18(L) 22 - 32 mmol/L [facility] Anion gap 14 2 - 15 mmol/L [facility] BUN 30(H) 6 - 25 mg/dL [facility] Creatinine 1.73(H) 0.60 - 1.10 mg/dL [facility] Glucose 76 70 - 199 mg/dL [facility] Comment: Interpretive Data Fasting glucose >/= 126 [...] 2022. Calcium 9.8 8.5 - 10.3 mg/dL [facility] Bilirubin, total 2.3(H) 0.1 - 1.2 mg/dL [facility] Protein, pl 8.0 6.5 - 8.5 g/dL [facility] Albumin 3.5 3.5 - 5.0 g/dL [facility] Alk phos 109 40 - 130 Units/L [facility] ALT 25 7 - 45 Units/L [facility] AST See Comment 10 - 45 [facility] Comment:Credited; Hemolyzed Specimen Blood 09/30/2024 4:08 AM CDT 09/30/2024 4:40 AM CDT us Ethan Dominguez MD LAB BLOOD ORDERABLES Final Result [facility] [address] [facility] Department [place] [address] * ECG 12 lead (09/29/2024 10:29 AM CDT) Pathologist [facility] Ventricular Rate EKG/Min 83 BPM [facility] Atrial Rate 83 BPM [facility] MN-Interval (MSEC) 198 ms [facility] QRS-Interval (MSEC) 130 ms [facility] QT-Interval (MSEC) 446 ms [facility] QTc 524 ms [facility] R [place] 132 degrees [facility] T [place] 232 degrees [facility] Diagnosis Sinus rhythm with occasional atrial-paced complexes and Premature atrial complexes Right axis deviation Non-specific intra-ventric ular conduction block Minimal voltage criteria for LVH, may be normal variant ( [place] product ) T wave abnormality, consider inferior ischemia Abnormal ECG Confirmed by SARI FELIX M.D. ([id number]) on 09/29/2024 5:13:43 PM [facility] 09/29/2024 10:2 9 AM CDT 09/29/2024 5:13 PM CDT Ethan Dominguez MD ECG ORDERABLES Final Result [facility] * (ABNORMAL) eGFR (09/29/2024 6:42 AM CDT) eGFR 34(L) >=60 mL/min/1. 73 [...] Dominguez MD LAB BLOOD ORDERABLES Final Result [facility] [address] [facility] Department [place] [address] * (ABNORMAL) Comprehensive metabolic panel (09/29/2024 6:42 AM CDT) Sodium 138 135 - 145 mmol/L Potassium, pl 3.8 3.3 - 4.9 mmol/L [facility] Chloride 105 97 - 110 mmol/L [facility] CO2 22 22 - 32 mmol/L [facility] Anion gap 11 2 - 15 mmol/L [facility] BUN 28(H) 6 - 25 mg/dL [facility] Creatinine 1.74(H) 0.60 - 1.10 mg/dL [facility] Glucose 79 70 - 199 mg/dL [facility] Comment: Interpretive Data Fasting glucose >/= 126 [...] 2022. Calcium 9.2 8.5 - 10.3 mg/dL [facility] Bilirubin, total 2.0(H) 0.1 - 1.2 mg/dL [facility] Protein, pl 6.3(L) 6.5 - 8.5 g/dL [facility] Albumin 3.0(L) 3.5 - 5.0 g/dL [facility] Alk phos 88 40 - 130 Units/L [facility] ALT 20 7 - 45 Units/L [facility] AST 33 10 - 45 Units/L [facility] Blood 09/29/2024 6:42 AM CDT 09/29/2024 7:18 AM CDT Ethan Dominguez MD LAB BLOOD ORDERABLES Final Result [facility] [address] [facility] Department [place] [address] * (ABNORMAL) eGFR (09/28/2024 10:37 AM CDT) Pathologist [facility] eGFR 36(L) >=60 mL/min/1. 73 m2 Comment: [...] BLOOD ORDERABLES Final Result Performing Organization Address [facility] Co de Phone Number [address] [place] [address] * Magnesium (09/28/2024 10:37 AM CDT) Pathologist [facility] Magnesium 1.9 1.4 - 2.5 mg/dL Blood 09/28/2024 10:3 7 AM CDT 09/28/2024 11:02 AM CDT Ethan Dominguez MD LAB BLOOD ORDERABLES Final Result Performing Organization Address [facility] Co de Phone Number [address] [address] * (ABNORMAL) Basic metabolic panel (09/28/2024 10:37 AM CDT) Pathologist [facility] Sodium 136 135 - 145 mmol/L Potassium, pl 4.2 3.3 - 4.9 mmol/L [facility] Comment:Hemolyzed; Potassium value may be falsely elevated by as much as 1.0 mmol/L. Suggest redraw and reanalysis. Chloride 101 97 - 110 mmol/L [facility] CO2 21(L) 22 - 32 mmol/L [facility] Anion gap 14 2 - 15 mmol/L [facility] BUN 25 6 - 25 mg/dL [facility] Creatinine 1.67(H) 0.60 - 1.10 mg/dL [facility] Glucose 132 70 - 199 mg/dL [facility] Comment: Interpretive Data Fasting glucose >/= 126 [...] 2022. Calcium 9.0 8.5 - 10.3 mg/dL [facility] Blood 09/28/2024 10:3 7 AM CDT 09/28/2024 11:02 AM CDT us Ethan Dominguez MD LAB BLOOD ORDERABLES Final Result [facility] [address] [facility] [place] [address] * ECG 12 lead (09/28/2024 9:46 AM CDT) Pathologist [facility] Ventricular Rate EKG/Min 78 BPM [facility] Atrial Rate 78 BPM [facility] MN-Interval (MSEC) 152 ms [facility] QRS-Interval (MSEC) 136 ms [facility] QT-Interval (MSEC) 506 ms [facility] QTc 576 ms [facility] R [place] 120 degrees [facility] T [place] 238 degrees [facility] Diagnosis Sinus rhythm with occasional Premature ventricular complexes and Premature atrial complexes Non-specific intra-ventricula r conduction block T wave abnormality, consider inferolateral ischemia Abnormal ECG When compared with ECG of 27-SEP-2024 13:10, QRS axis Shifted right Confirmed by BRI TSAI M.D. ([id number]) on 10/01/2024 12:09:18 AM [facility] 09/28/2024 9:46 AM CDT 10/01/2024 12:09 AM CDT Ethan Dominguez MD ECG ORDERABLES Final Result [facility] * (ABNORMAL) eGFR (09/28/2024 8:40 AM CDT) eGFR 36(L) >=60 mL/min/1. 73 [...] MD LAB BLOOD ORDERABLES Final Result [facility] [address] [facility] [place] [address] * (ABNORMAL) Differential, auto (09/28/2024 8:40 AM CDT) Neutrophil abs 1.79 1.50 - 6.50 K/cumm Imm gran abs 0.00 0.00 - 0.10 K/cumm [facility] Lymphocyte abs 1.87 0.80 - 3.30 K/cumm [facility] Monocyte abs 0.44 0.20 - 0.80 K/cumm [facility] Eosinophil abs 1.60(H) 0.00 - 0.50 K/cumm [facility] Basophil abs 0.08 0.00 - 0.10 K/cumm [facility] Neutrophil pct 30.9 % [facility] Comment: Interpretive Data Percent cell count reference ranges are not reported, since discordance with absolute values may lead to misinterpretation of CBC data. Current Interpretive Data was last revised on 2017. Imm gran pct 0.0 % [facility] Comment: Interpretive Data Percent cell count reference ranges are not reported, since discordance with absolute values may lead to misinterpretation of CBC data. Current Interpretive Data was last revised on 2017. Lymphocyte pct 32.4 % [facility] Comment: Interpretive Data Percent cell count reference ranges are not reported, since discordance with absolute values may lead to misinterpretation of CBC data. Current Interpretive Data was last revised on 2017. Monocyte pct 7.6 % [facility] Comment: Interpretive Data Percent cell count reference ranges are not reported, since discordance with absolute values may lead to misinterpretation of CBC data. Current Interpretive Data was last revised on 2017. Eosinophil pct 27.7 % [facility] Comment: Interpretive Data Percent cell count reference ranges are not reported, since discordance with absolute values may lead to misinterpretation of CBC data. Current Interpretive Data was last revised on 2017. Basophil pct 1.4 % [facility] Comment: Interpretive Data Percent cell count reference ranges are not reported, since discordance with absolute values may lead to misinterpretation of CBC data. Current Interpretive Data was last revised on 2017. Blood 09/28/2024 8:40 AM CDT 09/28/2024 8:55 AM CDT us Ethan Dominguez MD LAB BLOOD ORDERABLES Final Result [facility] [address] [facility] [place] [address] * (ABNORMAL) CBC with auto differential (09/28/2024 8:40 AM CDT) [facility] WBC 5.78 3.80 - 9.90 K/cumm Hgb 13.4 11.9 - 15.5 g/dL [facility] Hct 44.9 35.6 - 45.5 % [facility] Plt 128(L) 150 - 400 K/cumm [facility] MPV 9.5 9.1 - 12.3 fL [facility] RBC 4.55 3.90 - 5.20 M/cumm [facility] MCV 98.7(H) 81.3 - 96.4 fL [facility] MCH 29.5 27.1 - 33.3 pg [facility] MCHC 29.8(L) 32.3 - 35.7 g/dL [facility] RDW CV 15.2(H) 11.1 - 14.9 % [facility] RDW SD 54.2(H) 35.7 - 48.1 fL [facility] NRBC abs 0.00 0.00 - 0.01 K/cumm [facility] Blood 09/28/2024 8:40 AM CDT 09/28/2024 8:55 AM CDT us Ethan Dominguez MD LAB BLOOD ORDERABLES Final Result [address] Department [place] [address] * (ABNORMAL) Comprehensive metabolic panel (09/28/2024 8:40 AM CDT) [facility] Sodium 133(L) 135 - 145 mmol/L Potassium, pl 4.3 3.3 - 4.9 mmol/L [facility] Comment:Hemolyzed; Potassium value may be falsely elevated by as much as 1.0 mmol/L. Suggest redraw and reanalysis. Chloride 103 97 - 110 mmol/L [facility] CO2 16(L) 22 - 32 mmol/L [facility] Anion gap 14 2 - 15 mmol/L [facility] BUN 25 6 - 25 mg/dL [facility] Creatinine 1.66(H) 0.60 - 1.10 mg/dL [facility] Glucose 68(L) 70 - 199 mg/dL [facility] Comment: Interpretive Data Fasting glucose >/= 126 [...] 2022. Calcium 9.1 8.5 - 10.3 mg/dL [facility] Bilirubin, total 2.9(H) 0.1 - 1.2 mg/dL [facility] Protein, pl 6.4(L) 6.5 - 8.5 g/dL [facility] Albumin 2.8(L) 3.5 - 5.0 g/dL [facility] Alk phos 94 40 - 130 Units/L [facility] ALT 24 7 - 45 Units/L [facility] AST See Comment 10 - 45 [facility] Comment:Credited; Hemolyzed Specimen Blood 09/28/2024 8:40 AM CDT 09/28/2024 8:55 AM CDT Ethan Dominguez MD LAB BLOOD ORDERABLES Final Result Performing Organization Address [facility] Co de Phone Number [address] [place] [address] * Magnesium (09/27/2024 2:58 PM CDT) [facility] Magnesium 1.6 1.4 - 2.5 mg/dL Blood 09/27/2024 2:58 PM CDT 09/27/2024 3:02 PM CDT Ethan Dominguez MD LAB BLOOD ORDERABLES Final Result Performing Organization Address City/[facility] Co de Phone Number [place] [id number] [facility] [place] [employer] [place] [address] * ECG 12 lead (09/27/2024 1:10 PM CDT) Ventricular Rate EKG/Min 86 BPM [facility] QRS-Interval (MSEC) 128 ms [facility] QT-Interval (MSEC) 462 ms [facility] QTc 552 ms [facility] R [place] -15 degrees [facility] T [place] 213 degrees [facility] Diagnosis Atrial fibrillation Non-specific intra-ventricula r conduction block Minimal voltage criteria for LVH, may be normal variant ( Brandon product ) T wave abnormality, consider inferolateral ischemia Abnormal ECG When compared with ECG of 26-SEP-2024 15:29, No significant change was found Confirmed by PIPO CALVO M.D. ([id number]) on 09/27/2024 2:57:43 PM [facility] 09/27/2024 1:10 PM CDT 09/27/2024 2:57 PM CDT us Ethan Dominguez MD ECG ORDERABLES Final Result [facility] * TRANSTHORACIC ECHO (TTE) COMPLETE W DOPPLER/CF W CONTRAST (09/27/2024 11:30 AM CDT) [facility] LV EF 10-15 % CONS SCIMAGE Anatomical Region Laterality Modality Ultrasound 09/27/2024 10:5 3 AM CDT Narrative 09/29/2024 5:27 PM CDT Transthoracic Echocardiographic Report Patient Name: VARUN SANABRIA D : 1970 (54y 3m) Gender: F Study Date: 09/27/2024 10:53:53 AM Ht(Inch): 61 Wt(Lb): 217.99 BSA: 2.06 Nuclear Security Officer: Lanie Rivero RDCS Location: [id number] Order Provider: DU MORGAN Heart Rate: 84 BMI: 41.18 BP: 86 / 56 Ref Provider: DU MORGAN PROCEDURES: Echocardiographic Report: ([id number]) Transthoracic complete echo, 2D, spectral and tissue [...] 09/29/2024 Transthoracic Echocardiographic Report Patient Name: VARUN SANABRIAHerbie : 1970 (54y 3m) Gender: F Study Date: 09/27/2024 10:53:53 AM Ht(Inch): 61 Wt(Lb): 217.99 BSA: 2.06 Nuclear Security Officer: Lanie Rivero RDCS Location: [id number] Order Provider:DU MORGAN Heart Rate: 84 BMI: 41.18 BP: 86 / 56 Ref Provider: DU MORGAN PROCEDURES: Echocardiographic Report: ([id number]) Transthoracic complete echo, 2D,spectral and tissue Doppler, [...] Felix Jr MD 09/29/2024 5:26:55 PM CDT Du Morgan MD CV ECHO PROCEDURES Final [...] MD LAB BLOOD ORDERABLES Final R esult [facility] [address] [facility] [place] [address] * (ABNORMAL) CBC without differential (09/27/2024 4:45 AM CDT) WBC 7.47 3.80 - 9.90 K/cumm Hgb 13.4 11.9 - 15.5 g/dL [facility] Hct 44.3 35.6 - 45.5 % [facility] Plt 142(L) 150 - 400 K/cumm [facility] MPV 9.3 9.1 - 12.3 fL [facility] RBC 4.58 3.90 - 5.20 M/cumm [facility] MCV 96.7(H) 81.3 - 96.4 fL [facility] MCH 29.3 27.1 - 33.3 pg [facility] MCHC 30.2(L) 32.3 - 35.7 g/dL [facility] RDW CV 14.8 11.1 - 14.9 % [facility] RDW SD 51.5(H) 35.7 - 48.1 fL [facility] NRBC abs 0.00 0.00 - 0.01 K/cumm [facility] Blood 09/27/2024 4:45 AM CDT 09/27/2024 4:58 AM CDT Du Morgan MD LAB BLOOD ORDERABLES Final R esult Performing Organization Address [facility] Co de Phone Number [address] [place] [address] * Magnesium (09/27/2024 4:45 AM CDT) [facility] Magnesium 1.5 1.4 - 2.5 mg/dL Blood 09/27/2024 4:45 AM CDT 09/27/2024 4:58 AM CDT Du Morgan MD LAB BLOOD ORDERABLES Final R esult Performing Organization Address [facility] Co de Phone Number [address] [place] [address] * (ABNORMAL) Hepatic function panel (09/27/2024 4:45 AM CDT) [facility] Bilirubin, total 3.0(H) 0.1 - 1.2 mg/dL Bilirubin, direct 1.0(H) 0.1 - 0.3 mg/dL [facility] Protein, pl 6.6 6.5 - 8.5 g/dL [facility] Albumin 3.2(L) 3.5 - 5.0 g/dL [facility] Alk phos 93 40 - 130 Units/L [facility] ALT 26 7 - 45 Units/L [facility] AST 39 10 - 45 Units/L [facility] Blood 09/27/2024 4:45 AM CDT 09/27/2024 4:58 AM CDT Du Morgan MD LAB BLOOD ORDERABLES Final R esult Performing Organization Address [facility] Phone Number [place]INA [address] [facility] Department [place] [address] * (ABNORMAL) Basic metabolic panel (09/27/2024 4:45 AM CDT) Pathologist [facility] Sodium 137 135 - 145 mmol/L Potassium, pl 3.6 3.3 - 4.9 mmol/L [facility] Chloride 102 97 - 110 mmol/L [facility] CO2 23 22 - 32 mmol/L [facility] Anion gap 12 2 - 15 mmol/L [facility] BUN 20 6 - 25 mg/dL [facility] Creatinine 1.59(H) 0.60 - 1.10 mg/dL [facility] Glucose 74 70 - 199 mg/dL [facility] Comment: Interpretive Data Fasting glucose >/= 126 [...] 2022. Calcium 9.3 8.5 - 10.3 mg/dL [facility] Blood 09/27/2024 4:45 AM CDT 09/27/2024 4:58 AM CDT Du Morgan MD LAB BLOOD ORDERABLES Final R esult Performing Organization Address [facility]/ZIP Co de Phone Number KATALINA [facility] [place] [address] * (ABNORMAL) Troponin T high-sensitivity 6-hour (09/26/2024 9:20 PM CDT) Trop T hs 45(H) <=14 ng/L Comment: Interpretive Data For further hscTnT resources including the diagnostic algorithm and an aid in interpretation, copy and paste this link: https://nrl.testcatalog.org/show/hsTrop Current Interpretive Data last revised 2020. Trop T hs delta -3 ng/L [facility] Trop T hs interp Insignificant [facility] Blood 09/26/2024 9:20 PM CDT 09/26/2024 9:24 PM CDT Sailaja BANKS LAB BLOOD ORDERABLES Final Result Performing Organization Address [facility] de Phone Number [facility]ATALINA [facility] [email or web address] [place] [address] * Blood culture Blood Blood (09/26/2024 8:40 PM CDT) Report Final Report: No growth Comment:Testing performed by : [facility], [address] [place]., [address] Blood (Blood) 09/26/2024 8:4 0 PM CDT 09/27/2024 4:50 AM CDT N[facility]ative [facility] 10/01/[facility] 7:00 AM CDT Collection->Peripheral 1. [...] performance characteristics have been verified by the [facility] Microbiology Laboratory. For questions about this culture, contact the Microbiology Laboratory at [phone]. Interpretive data was last revised on 24. Angela Kirk MD LAB MICROBIOLOGY - GENERAL ORDERABLES Final Result [facility] [place] [address] [facility] [place] [address] * Blood culture Blood Blood (09/26/2024 8:39 PM CDT) Report Final Report: No growth Comment:Testing performed by : [facility], [address] [place]., [address] Blood (Blood) 09/26/2024 8:3 9 PM CDT 09/27/2024 4:50 AM CDT [facility] KATALINA MCKE[place] - 10/01/2024 7:00 AM CDT [...] performance characteristics have been verified by the [facility]biology [facility]. For questions about this culture, contact the Microbiology Laboratory at [phone]. Interpretive data was last revised on 24. Angela Kirk MD LAB MICROBIOLOGY - GENERAL ORDERABLES Final Result Performing Organization Address City/[facility]/ZIP Co de Phone Number [address] [email or web address] [address] * (ABNORMAL) Urinalysis reflex to microscopic and culture Urine (09/26/2024 6:27 PM CDT) Color, ur Yellow Yellow Clarity, ur Turbid(A) Clear [facility] Specific gravity, ur 1.013 1.003 - 1.030 [facility] pH, urine 5.5 [facility] Comment: Interpretive Data U rine pH is affected by diet, medications, systemic acid-base disturbances, and renal tubular function. pH may affect urinary stone formation. For example, urine pH below 6.0 may help reduce the tendency for calcium phosphate stones and pH greater than 6.0 may reduce the tendency for uric acid stone formation. Source: [facility] Current Interpretive Data was last revised on 2017 Protein, ur ql 2+(A) Negative [facility] Glucose, ur ql Negative Negative [facility] Ketones, ur Negative Negative [facility] Bilirubin, ur Negative Negative [facility] Blood, ur 2+(A) Negative [facility] Urobilinogen, ur 4.0(A) <2.0 mg/dL [facility] Nitrite, ur Negative Negative [facility] Leukocyte esterase, ur 4+(A) Negative [facility] UA reflex comment Reflex to microscopic UA will be performed. [facility] Urine 09/26/2024 6:27 PM CDT 09/26/2024 6:31 PM CDT Deacon BANKS LAB MICROBIOLOGY - GENERAL O RDERABLES Final Result Performing Organization Address City/[facility]/ZIP Co de Phone Number [facility] [address] [facility] [email or web address] [address] * (ABNORMAL) Urinalysis, microscopic only (09/26/2024 6:27 PM CDT) WBC, ur >50(A) 0 - 5 /HPF RBC, ur 11-20(A) 0 - 2 /HPF [facility] Epithelial cells, squamous, ur 1-5 0 - 5 /HPF [facility] Bacteria, ur 4+(A) [facility] Culture Reflex Comment Reflex to urine culture will be performed. [facility] Urine 09/26/2024 6:27 PM CDT 09/26/2024 6:31 PM CDT Deacon BANKS LAB URINE ORDERABLES Final R esult [facility] [address] [facility] [place] [address] * (ABNORMAL) Urine culture Urine (09/26/2024 6:27 PM CDT) Report Final Report: Greater than or equal to 100,000 colonies/mL of Escherichia coli Plus growth of clinically insignificant bacterial guzman. (.) Comment:Testing performed by : [facility], [address] [place]., [address] Organism ESCHERICHIA COLI [facility] Organism PLUS GROWTH OF CLINICALLY INSIGNIFICANT GUZMAN. [facility] Urine 09/26/2024 6:27 PM CDT 09/26/2024 9:46 PM CDT Narrative [facility] - 09/28/2024 4:58 PM CDT Urine culture reflexed based upon urinalysis results. Testing performed by [facility]biology Laboratory ([phone]) Organism Antibiotic Method Susceptibility Escherichia coli Ampicillin [...] INTERPRETATION Susceptible Escherichia coli Cefdinir INTERPRETATION Susceptible us Deacon BANKS LAB MICROBIOLOGY - GENERAL O RDERABLES Final Result Performing Organization Address [facility] Co de Phone Number KATALINA [address] [address] * (ABNORMAL) Troponin T high-sensitivity 2-hour (09/26/2024 5:45 PM CDT) Trop T hs 46(H) <=14 ng/L Comment: Interpretive Data For further hscTnT resources including the diagnostic algorithm and an aid in interpretation, copy and paste this link: https://nrl.testcatalog.org/show/hsTrop Current Interpretive Data last revised 2020. Trop T hs delta -2 ng/L [facility] Trop T hs interp Insignificant [facility] Blood 09/26/2024 5:45 PM CDT 09/26/2024 5:47 PM CDT Sailaja BANKS LAB BLOOD ORDERABLES Final Result Performing Organization Address [facility] Co de Phone Number KATALINA [address] [address] * XR Chest 1 Vw Portable (if patient condition/safety warrant portable) (09/26/2024 3:46 PM CDT) Anatomical Region Laterality Modality Body, Chest N/A Computed Radiogr aphy 09/26/2024 4:32 PM CDT Narrative 09/26/2024 4:33 PM CDT EXAM DESCRIPTION: XR CHEST 1 VIEW REASON FOR STUDY: Shortness of breath BIBEMS from [facility]. Pt states to increased SOB, weakness, bilateral lower extremity swelling for the last week. States to taking medication as rx. Pt went to PCP today and was told her O2 level was low. Pt then drove back to [facility] where they checked her O2 and pt [...] 09/26/2024 4:33 PM - Electronically signed by Frdey Adler M.D. T: Report ID: [id number] Reading Location: [place] [address] Procedure Note Fredy Adler MD - 09/26/2024 EXAM DESCRIPTION: XR CHEST 1 VIEW REASON FOR STUDY: Shortness of breath BIBEMS from [facility]. Pt states to increased SOB, weakness, bilateral lower extremity swelling for the last week. States totaking medication as rx. Pt went to PCP today and was told her O2 level waslow. Pt then drove back to [facility] where they checked her O2 and pt [...] - Electronically signed by Fredy Adler M.D. KH T: Report ID: [id number] Reading Location: [place] [address] Angela Kirk MD IMG XR PROCEDURES Final Res ult * ECG 12 lead (09/26/2024 3:29 PM CDT) Pathologist [facility] Ventricular Rate EKG/Min 112 BPM [facility] Atrial Rate 122 BPM [facility] QRS-Interval (MSEC) 134 ms [facility] QT-Interval (MSEC) 306 ms [facility] QTc 417 ms [facility] R [place] -16 degrees [facility] T [place] 196 degrees [facility] Diagnosis Atrial fibrillation with rapid ventricular response with premature ventricular or aberrantly conducted complexes Non-specific intra-ventricul ar conduction block T wave abnormality, consider inferior ischemia Abnormal ECG When compared with ECG of 06-OCT-2023 15:19, Atrial fibrillation has replaced Sinus rhythm Confirmed by PIPO CALVO M.D. ([id number]) on 09/27/2024 12:34:53 PM [facility] 09/26/2024 3:29 PM CDT 09/27/2024 12:34 PM CDT us Angela Kirk MD ECG ORDERABLES Final Resul t [facility] * (ABNORMAL) Troponin T high-sensitivity series (baseline, 2hr, 4hr, 6hr) (09/26/2024 3:15 PM CDT) Pathologist [facility] Trop T hs 48(H) <=14 ng/L Comment: Interpretive Data For further hscTnT resources including the diagnostic algorithm and an aid in interpretation, copy and paste this link: https://nrl.testcatalog.org/show/hsTrop Current Interpretive Data last revised 2020. Blood 09/26/2024 3:15 PM CDT 09/26/2024 3:23 PM CDT nAgela Kirk MD LAB BLOOD ORDERABLES Final Result Performing Organization Address City/State/[facility] Co de Phone Number KATALINA [facility] [place] [address] * Influenza A/B, RSV, and COVID-19 PCR Nasopharyngeal (09/26/2024 3:15 PM CDT) Pathologist [facility] COVID-19 RNA Negative Negative Influenza A RNA Negative Negative [facility] Influenza B RNA Negative Negative [facility] RSV RNA Negative Negative [facility] Comment: Interpretive data: Testing performed by [facility]. This test is performed using the [employer] Xpert Xpress CoV-2/Flu/RSV plus assay. This is a multiplex, real-time reverse transcriptase PCR assay intended for the qualitative detection of nucleic acid from SARS-CoV-2, influenza A, influenza B, and respiratory syncytial virus. This assay has been cleared by the [place] Food and Drug administration. The performance characteristics have been verified by the [facility]. Results must be considered in the clinical context, and a negative result does not rule out infection. Interpretive Data last revised 2023 Nasopharyngeal 09/26/2024 3: 15 PM CDT 09/26/2024 3:23 PM CDT Narrative [facility] - 09/26/2024 4:03 PM CDT Is the Patient experiencing symptoms consistent with COVID?->No Angela Kirk MD LAB MICROBIOLOGY - GENERAL ORDERABLES Final Result Performing Organization Address [facility] Co de Phone Number [place] [phone] [place] [address] * (ABNORMAL) eGFR (09/26/2024 3:15 PM CDT) [facility] eGFR 36(L) >=60 mL/min/1. 73 m2 Comment: [...] Kirk MD LAB BLOOD ORDERABLES Final Result [place] [id number] [facility] [place] [address] * (ABNORMAL) Differential, auto (09/26/2024 3:15 PM CDT) Pathologist [facility] Neutrophil abs 4.26 1.50 - 6.50 K/cumm Imm gran abs 0.02 0.00 - 0.10 K/cumm [facility] Lymphocyte abs 1.56 0.80 - 3.30 K/cumm [facility] Monocyte abs 0.48 0.20 - 0.80 K/cumm [facility] Eosinophil abs 0.76(H) 0.00 - 0.50 K/cumm [facility] Basophil abs 0.10 0.00 - 0.10 K/cumm [facility] Neutrophil pct 59.3 % [facility] Comment: Interpretive Data Percent cell count reference ranges are not reported, since discordance with absolute values may lead to misinterpretation of CBC data. Current Interpretive Data was last revised on 2017. Imm gran pct 0.3 % [facility] Comment: Interpretive Data Percent cell count reference ranges are not reported, since discordance with absolute values may lead to misinterpretation of CBC data. Current Interpretive Data was last revised on 2017. Lymphocyte pct 21.7 % [facility] Comment: Interpretive Data Percent cell count reference ranges are not reported, since discordance with absolute values may lead to misinterpretation of CBC data. Current Interpretive Data was last revised on 2017. Monocyte pct 6.7 % [facility] Comment: Interpretive Data Percent cell count reference ranges are not reported, since discordance with absolute values may lead to misinterpretation of CBC data. Current Interpretive Data was last revised on 2017. Eosinophil pct 10.6 % [facility] Comment: Interpretive Data Percent cell count reference ranges are not reported, since discordance with absolute values may lead to misinterpretation of CBC data. Current Interpretive Data was last revised on 2017. Basophil pct 1.4 % [facility] Comment: Interpretive Data Percent cell count reference ranges are not reported, since discordance with absolute values may lead to misinterpretation of CBC data. Current Interpretive Data was last revised on 2017. Blood 09/26/2024 3:15 PM CDT 09/26/2024 3:23 PM CDT Angela Kirk MD LAB BLOOD ORDERABLES Final Result [place] [address] [facility] [place] [address] * (ABNORMAL) Pro B-type natriuretic peptide (09/26/2024 [...] Heart J. 2006:27:330-337. 2. Vilma RW, Ruddy HERNANDEZ. J. AM Marcello Cardiol: Cardiovasc Imag. 2009;2: 216- 225. Interpretive Data Last Revised Date: 2018. Blood 09/26/2024 3:15 PM CDT 09/26/2024 3:23 PM CDT us Deacon BANKS LAB BLOOD ORDERABLES Final R esult [place] [id number] [facility] [place] [address] * (ABNORMAL) CBC with auto differential (09/26/2024 3:15 PM CDT) WBC 7.18 3.80 - 9.90 K/cumm Hgb 14.4 11.9 - 15.5 g/dL [facility] Hct 45.7(H) 35.6 - 45.5 % [facility] Plt 154 150 - 400 K/cumm [facility] MPV 9.3 9.1 - 12.3 fL [facility] RBC 4.89 3.90 - 5.20 M/cumm [facility] MCV 93.5 81.3 - 96.4 fL [facility] MCH 29.4 27.1 - 33.3 pg [facility] MCHC 31.5(L) 32.3 - 35.7 g/dL [facility] RDW CV 14.6 11.1 - 14.9 % [facility] RDW SD 49.4(H) 35.7 - 48.1 fL [facility] NRBC abs 0.00 0.00 - 0.01 K/cumm [facility] Blood 09/26/2024 3:15 PM CDT 09/26/2024 3:23 PM CDT Angela Kirk MD LAB BLOOD ORDERABLES Final Result [place] [address] [facility] [place] [address] * (ABNORMAL) Comprehensive metabolic panel (09/26/2024 3:15 PM CDT) Sodium 137 135 - 145 mmol/L Potassium, pl 3.5 3.3 - 4.9 mmol/L [facility] Chloride 99 97 - 110 mmol/L [facility] CO2 23 22 - 32 mmol/L [facility] Anion gap 15 2 - 15 mmol/L [facility] BUN 20 6 - 25 mg/dL [facility] Creatinine 1.66(H) 0.60 - 1.10 mg/dL [facility] Glucose 115 70 - 199 mg/dL [facility] Comment: Interpretive Data Fasting glucose >/= 126 [...] 2022. Calcium 9.6 8.5 - 10.3 mg/dL [facility] Bilirubin, total 3.0(H) 0.1 - 1.2 mg/dL [facility] Protein, pl 7.6 6.5 - 8.5 g/dL [facility] Albumin 3.7 3.5 - 5.0 g/dL [facility] Alk phos 118 40 - 130 Units/L [facility] ALT 35 7 - 45 Units/L [facility] AST 46(H) 10 - 45 Units/L [facility] Blood 09/26/2024 3:15 PM CDT 09/26/2024 3:23 PM CDT us Angela Kirk MD LAB BLOOD ORDERABLES Final Result [address] [address] [facility] [place] [address] from Last 3 Months Insurance [facility] Advance Directives For more information, please contact: [phone] Documents on File Type Date Recorded 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 DIRECTIVE 02/18/2022 2:53 PM Power of Linux System Admin-Medical * Full Code (Latest Code Status on File) Date Activated Date Inactivated Comments 09/26/2024 11:29 PM 10/02/2024 7:33 PM * Full Code Date Activated Date Inactivated Comments 10/06/2023 9:22 PM 10/11/2023 6:59 PM * Full Code Date Activated Date Inactivated Comments 09/14/2022 3:55 PM 09/15/2022 3:31 PM * Full Code Date Activated Date Inactivated Comments 02/18/2022 3:21 AM 02/24/2022 12:30 AM Care Teams Plastics Process Hand Relationship Specialty Start Date End Date Soumya Araujo MD PCP - General Technical Maintenance Technician 10/05/22 Sultan Louis Cao MD [address] [place] [address] Consulting Physician Cardiovascular Disease 10/02/24
--- OUTSIDE RECORDS SUMMARY | 2024-11-25 22:39 | XMS_ITS | Encounter Summary ---
Author Organization [facility] Healthcare Address [address] [place] [address] Care Team Providers Care Superintendent Pipelines Name Role Phone Soumya Araujo MD Primary Care Provider [phone] Sultan Louis Clarke MD Unavailable [phone] Encounter Details Date Type Department Care Team (Late st Contact Info) Description 11/19/[address] [place] [address] Rosette Mckeon RN Social History Tobacco Use Types Packs/Day Years Used Date Smoking Tobacco: Never Smokeless Tobacco: Never Alcohol Use Standard Drinks/Week Comments Never 0 (1 standard drink = 0.6 oz pur e alcohol) [facility] Utilities Answer Date Recorded In the past 12 months has [email or web address] electric, gas, oil, or water company threatened [...] Never 09/27/2024 How often do you attend restorationist or alevism serv ices? Never 09/27/2024 Do you belong to any clubs o r organizations such as restorationist groups, unions, fraternal or athletic groups, or [...] place to sleep or slept in a detention (including now)? Patient declined 10/09/2023 Housing Stability [...] any time in the past 12 m [facility], were you homeless or living in a detention (including now)? No 09/27/2024 Personal Safety Answer Date Recorded Have you ever been in or are you currently in a harmful physical or emotional relationship or is someone making you feel afraid or unsafe? Denies 09/26/2024 Comments No Sex and Gender Information Value Date Recorded Sex Assigned at Not on file Legal Sex Female 3:29 PM ELDERLY SITTER Gender Identity Female 01/10/2024 9:21 AM CDT Sexual Orientation Straight 01/10/2024 9: 21 AM CDT documented as of this encounter Plan of Treatment Not on file documented as of this encounter Visit Diagnoses Not on filedocumented in this encounter Care Teams Superintendent Pipelines Relationship Specialty Start Date End Date Soumya Araujo MD PCP - General Business Support Liaison 10/05/22 Sultan Louis Clarke MD [address] [facility] [address] [address] [place] [address] Consulting Physician Cardiovascular Disease 10/02/24 documented as of this encounter
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
--- OUTSIDE RECORDS SUMMARY | 2024-11-25 23:20 | XMS_ITS | Encounter Summary ---
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
--- OUTSIDE RECORDS SUMMARY | 2024-11-25 23:20 | XMS_ITS | Encounter Summary ---
Author Organization [facility] Healthcare Address [address] [place] [address] Care Team Providers Care Tablet Making Machine Operator Helper Name Role Phone Soumya Araujo MD Primary Care Provider [phone] Sultan Louis Clarke MD Unavailable [phone] Encounter Details Date Type Department Care Team (Late st Contact Info) Description 11/19/[address] [place] [address] Rosette Mckeon RN Social History Tobacco Use Types Packs/Day Years Used Date Smoking Tobacco: Never Smokeless Tobacco: Never Alcohol Use Standard Drinks/Week Comments Never 0 (1 standard drink = 0.6 oz pur e alcohol) [facility] Utilities Answer Date Recorded In the past 12 months has [employer] electric, gas, oil, or water company threatened [...] Never 09/27/2024 How often do you attend taoist or latter-day serv ices? 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
--- OUTSIDE RECORDS SUMMARY | 2024-11-25 23:20 | XMS_ITS | Clinical Summary ---
Author Organization [facility] Address [address] [place] [address] Care Team Providers Care Sleep Tech Name Role Phone Unavailable Primary Care Provider Unavailabl e Source Comments [facility],non-owned Affiliates and Associated Physician Practices is amultiple site organization consisting of ambulatory clinics and hospital sitesin [place], [place], [place] and [place]. This disclosure is being madepursuant to the Care Everywhere program and may not contain all information available regarding this patient. Last updated 18.[facility] Social History Tobacco Use Types Packs/Day Years [...] patient's age to complete this topic Insurance [facility]
--- OUTSIDE RECORDS SUMMARY | 2024-11-25 23:20 | XMS_ITS | Encounter Summary ---
Author Organization [facility] Healthcare Address [address] [place] [address] Care Team Providers Care Electrician Station Assistant Name Role Phone Soumya Araujo MD Primary Care Provider [phone] Sultan Louis Clarke MD Unavailable [phone] Encounter Details Date Type Department Care Team (Late st Contact Info) Description 11/19/[address] [place] [address] Rosette Mckeon RN Social History Tobacco Use Types Packs/Day Years Used Date Smoking Tobacco: Never Smokeless Tobacco: Never Alcohol Use Standard Drinks/Week Comments Never 0 (1 standard drink = 0.6 oz pur e alcohol) [facility] Utilities Answer Date Recorded In the past 12 months has [employer] electric, gas, oil, or water company threatened [...] Never 09/27/2024 How often do you attend jew or zoroastrian serv ices? Never 09/27/2024 Do you belong to any clubs o r organizations such as jew groups, unions, fraternal or athletic groups, or [...] place to sleep or slept in a residential (including now)? Patient declined 10/09/2023 Housing Stability [...] any time in the past 12 m [facility], were you homeless or living in a residential (including now)? No 09/27/2024 Personal Safety Answer Date Recorded Have you ever been in or are you currently in a harmful physical or emotional relationship or is someone making you feel afraid or unsafe? 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
--- OUTSIDE RECORDS SUMMARY | 2024-11-25 23:20 | XMS_ITS | Clinical Summary ---
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 patient already has ICD in place in left upper chest. Patient denies any shocks/defibrillation. - device interrogation ordered and remains pending. Continue patient on Coreg 6.25 mg BID. Patient is on continuous telemetry. Telemetry reviewed and no further ventricular ectopy noted in the past 24 hours. 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 Overview (07/23/2024): [employer] 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VT, NICM [...] Care Team Description 11/19/2024 Home Care Visit [address] [place] [address] Rosangela Chauhan, PT PT NON ADMIT 11/19/2024 Travel 11/19/[address] [place] [address] Rosette Mckeon RN 11/19/[address] [place] [address] Rosette Mckeon, RN 11/19/[address] [place] [address] Rosette Mckeon, ADELINA 11/19/[address] [place] [address] Rosette Mckeon, RN 11/19/[address] [place] [address] Rosette Mckeon RN 10/07/2024 TCC Subsequent Outreach [facility] [address] [place] [address] Jorge Jack RN 09/27/2024 TCC Initial Eligibility Review [facility] [address] [place] [address] Jorge Jack RN 09/26/2024 5:33 PM CDT - 10/02/2024 3:15 PM CDT Hospital Encounter [address] [address] Angela Kirk MD Georgiyev, Sergiy, MD Saturno Arias, Dany Jose, MD Mustafa, Saim, DO Winston, Jared Todd, MD Acute on chronic congestive heart failure, unspecified heart failure type (HCC) (Primary Dx); Acute UTI Discharge Disposition: Discharge to jail facility from Last 3 Months Immunizations Immunization [...] drink = 0.6 oz pur e alcohol) [facility] Utilities Answer Date Recorded In the past 12 months has ie[employer]row[employer] electric, gas, oil, or water [employer] threatened to shut off services in your home? No 09/27/2024 Social Connection and Isolation Panel [NHANES] A nswer Date Recorded In a typical week, how many times do you talk on the phone with family, friends, or neighbors? Never 09/27/2024 How often do you get together with friends or re latives? Never 09/27/2024 How often do you attend bahai or evangelical serv ices? Never 09/27/2024 Do you belong to any clubs o r organizations such as bahai groups, unions, fraternal or athletic groups, or [...] place to sleep or slept in a fpc (including now)? Patient declined 10/09/2023 Housing Stability [...] any time in the past 12 m [facility], were you homeless or living in a fpc (including now)? No 09/27/2024 Personal Safety Answer Date Recorded Have you ever been in or are you currently in a harmful physical or emotional relationship or is someone making you feel afraid or unsafe? 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 Electroslag Device Identifier Shelf Expiration Date Model / Serial / Lot [employer] Vascade Mvp 6-12fr Venous Closure [id number] - [id number] - [id number] Implanted:Qty: 1 on 09/14/2022 by Parminder Meadows MD at [facility] Collagen Right: Femoral [employer] 04/25/2024 800-612C -10U / [id number] 109A / [id number] 109A [employer] Vascade Mvp 6-12fr Venous Closure [id number] - [id number] - [id number] Implanted:Qty: 1 on 09/14/2022 by Parminder Meadows MD at [facility] Collagen Right: Femoral [employer] 05/30/2024 800-612C -10U / [id number] 212C / [id number] 212C [employer] Vascade Mvp 6-12fr Venous Closure [id number] - [id number] - [id number] Implanted:Qty: 1 on 09/14/2022 by Parminder Meadows MD at [facility] Collagen Left: Femoral [employer] 05/30/2024 800-612C -10U / [id number] 212C / [id number] 212C [employer] Vascade Mvp 6-12fr Venous Closure [id number] - [id number] - [id number] Implanted:Qty: 1 on 09/14/2022 by Parminder Meadows MD at [facility] Collagen Left: Femoral [employer] 05/30/2024 800-612C -10U / [id number] 212C / [id number] 212C [employer] Kermit Angio-Seal Vip 6fr Closere Device [id number] - [id number] Implanted:Qty: 1 on 02/18/2022 by Duke Armenta MD at [facility] [employer] Kermit 11/16/2022 [id number] / / [id number] Drivr Kermit Dynagen Enduralife Easyview Hf Perspectiv 5.37x7.68cm 2 Chamber D152 - [id number] - [id number] Implanted:Qty: 1 on 02/22/2022 by Jordy Patton MD at [facility] [employer] [facility] [id number] 09/23/2023 D152 / [id number] / [employer] Kermit [place] 4-Front 59cm Active Fixation Lead Icd 0672 - [id number] - [id number] Implanted:Qty: 1 on 02/22/2022 by Jordy Patton MD at [facility] [employer] [facility] [id number] 09/23/2023 0672 / [id number] / [employer] Lead 7841 Endocardial Pacing Mr Is-1 Bipolar Connection 7841 - [id number] - [id number] Implanted:Qty: 1 on 02/22/2022 by Jordy Patton MD at [facility] [employer] [facility] [id number] 02/04/2024 7841 / [id number] / Med[employer] Inc Tyrx Absorbable Antibacterial Envelope-Large 3.3x2.9in [id number] - [id number] Implanted:Qty: 1 on 02/22/2022 by Jordy Patton MD at [facility] [employer] Inc [id number] / / Procedures Procedure Name Priority Date/Time [...] Final Result Performing Organization Address City/State/ZIP Co mo Phone Number [facility] [address] [facility] [place] [address] * (ABNORMAL) Pro B-type natriuretic peptide (10/02/2024 [...] CDT 10/02/2024 10:13 AM CDT Soumya Marcelo STATION SUPERVISOR LAB BLOOD ORDERABLES Final Res ult Performing Organization Address [facility] Co de Phone Number [address] [address] * Magnesium (10/02/2024 9:49 AM CDT) [facility] Magnesium 1.8 1.4 - 2.5 mg/dL Blood 10/02/2024 9:49 AM CDT 10/02/2024 10:13 AM CDT Soumya Marcelo STATION SUPERVISOR LAB BLOOD ORDERABLES Final Res ult Performing Organization Address [facility] de Phone Number [address] [address] * (ABNORMAL) Comprehensive metabolic panel (10/02/2024 9:49 AM CDT) Pathologist [facility] Sodium 133(L) 135 - 145 mmol/L Potassium, pl 4.6 3.3 - 4.9 mmol/L [facility] Comment:Hemolyzed; Potassium value may be falsely elevated by as much as 1.0 mmol/L. Suggest redraw and reanalysis. Chloride 99 97 - 110 mmol/L [facility] CO2 24 22 - 32 mmol/L [facility] Anion gap 10 2 - 15 mmol/L [facility] BUN 29(H) 6 - 25 mg/dL [facility] Creatinine 1.72(H) 0.60 - 1.10 mg/dL [facility] Glucose 74 70 - 199 mg/dL [facility] Comment: Interpretive Data Fasting glucose >/= [...] 2022. Calcium 9.1 8.5 - 10.3 mg/dL [facility] Bilirubin, total 2.4(H) 0.1 - 1.2 mg/dL [facility] Protein, pl 6.3(L) 6.5 - 8.5 g/dL [facility] Albumin 2.9(L) 3.5 - 5.0 g/dL [facility] Alk phos 95 40 - 130 Units/L [facility] ALT 26 7 - 45 Units/L [facility] AST See Comment 10 - 45 [facility] Comment:Credited; Hemolyzed Specimen Blood 10/02/2024 9:49 AM CDT 10/02/2024 10:13 AM CDT Ethan Dominguez MD LAB BLOOD ORDERABLES Final Result [facility] [address] [facility] Department [place] [address] * (ABNORMAL) Hemoglobin A1c (10/01/2024 2:13 PM CDT) Hgb A1C 6.0(H) 4.0 - 5.6 % Estimated Average Glucose 126 mg/dL [facility] Comment: The ADA recommends reporting an estimated Average Glucose (eAG) with all Hemoglobin A1c results using the equation derived from a study of 507 normal and diabetic adults. Minority populations were underrepresented and children were not included. (Diabetes Care 31:0602-2045, 2008). The eAG is not equivalent to a fasting glucose. Blood 10/01/2024 2:13 PM CDT 10/01/2024 3:17 PM CDT Soumya Marcelo NP LAB BLOOD ORDERABLES Final Res ult Performing Organization Address City/[facility]/ZIP Co de Phone Number [facility] [address] [facility] Department [place] [address] * ECG 12 lead (10/01/2024 9:52 AM CDT) Ventricular Rate EKG/Min 74 BPM [facility] Atrial Rate 74 BPM [facility] MT-Interval (MSEC) 156 ms [facility] QRS-Interval (MSEC) 138 ms [facility] QT-Interval (MSEC) 470 ms [facility] QTc 521 ms [facility] R [place] 8 degrees [facility] T [place] 230 degrees [facility] Diagnosis Sinus rhythm with marked sinus arrhythmia Non-specific intra-ventricula r conduction block T wave abnormality, consider inferolateral ischemia Abnormal ECG When compared with ECG of 30-SEP-2024 16:01, Sinus rhythm has replaced Ectopic atrial rhythm Confirmed by SULTAN CAO M.D. ([id number]) on 10/01/2024 4:19:42 PM [facility] 10/01/2024 9:52 AM CDT 10/01/2024 4:19 PM CDT Ethan Dominguez MD ECG ORDERABLES Final Result Performing Organization Address City/[facility]/ZIP Co de Phone Number [facility] * Magnesium - Add on lab test (10/01/2024 9:00 AM CDT) Pathologist [facility] Acceptable Yes Blood 10/01/2024 9:00 AM CDT 10/01/2024 9:00 AM CDT Narrative KATALINA - 10/01/2024 9:01 AM CDT Name of Test->Magnesium Ethan Dominguez MD LAB BLOOD ORDERABLES Final Result Performing Organization Address [facility] Co de Phone Number KATALINA [address] [place] [address] * (ABNORMAL) eGFR (10/01/2024 6:17 AM CDT) Pathologist [facility] eGFR 34(L) >=60 mL/min/1. 73 m2 Comment: [...] BLOOD ORDERABLES Final Result Performing Organization Address [facility] Co de Phone Number KATALINA [facility] [place] [address] * (ABNORMAL) Pro B-type natriuretic peptide (10/01/2024 6:17 AM CDT) Pathologist [facility] NT-proBNP 12,984(H) <=300 pg/mL Comment: Interpretive Comments: [...] BLOOD ORDERABLES Final Result Performing Organization Address [facility] de Phone Number [place] [phone] [facility] [place] [address] * (ABNORMAL) TSH (10/01/2024 6:17 AM CDT) Thyroid Stimulating Hormone 7.85(H) 0.30 - 4.20 mcIUnit/mL Blood 10/01/2024 6:17 AM CDT 10/01/2024 6:25 AM CDT Ethan Dominguez MD LAB BLOOD ORDERABLES Final Result Performing Organization Address City/[facility] Co de Phone Number [place] [phone] [facility] [place] [address] * Phosphorus (10/01/2024 6:17 AM CDT) Pathologist [facility] Phosphorus, pl 4.3 2.3 - 4.5 mg/dL Blood 10/01/2024 6:17 AM CDT 10/01/2024 6:25 AM CDT Ethan Dominguez MD LAB BLOOD ORDERABLES Final Result Performing Organization Address City/[facility] Co de Phone Number [address] [place] [address] * Magnesium (10/01/2024 6:17 AM CDT) Pathologist [facility] Magnesium 1.8 1.4 - 2.5 mg/dL Blood 10/01/2024 6:17 AM CDT 10/01/2024 6:25 AM CDT Ethan Dominguez MD LAB BLOOD ORDERABLES Final Result Performing Organization Address City/[facility] de Phone Number [address] [place] [address] * (ABNORMAL) Lipid panel (10/01/2024 6:17 AM CDT) Pathologist [facility] Cholesterol 72 30 - 199 mg/dL Comment: [...] last revised on 2018. Chol/HDL ratio 3 [facility] Blood 10/01/2024 6:17 AM CDT 10/01/2024 6:25 AM CDT Ethan Dominguez MD LAB BLOOD ORDERABLES Final Result [facility] [address] [facility] Department [place] [address] * (ABNORMAL) Comprehensive metabolic panel (10/01/2024 6:17 AM CDT) Sodium 137 135 - 145 mmol/L Potassium, pl 4.7 3.3 - 4.9 mmol/L [facility] Chloride 103 97 - 110 mmol/L [facility] CO2 22 22 - 32 mmol/L [facility] Anion gap 12 2 - 15 mmol/L [facility] BUN 29(H) 6 - 25 mg/dL [facility] Creatinine 1.72(H) 0.60 - 1.10 mg/dL [facility] Glucose 84 70 - 199 mg/dL [facility] Comment: Interpretive Data Fasting glucose >/= [...] 2022. Calcium 9.4 8.5 - 10.3 mg/dL [facility] Bilirubin, total 2.3(H) 0.1 - 1.2 mg/dL [facility] Protein, pl 6.9 6.5 - 8.5 g/dL [facility] Albumin 3.3(L) 3.5 - 5.0 g/dL [facility] Alk phos 93 40 - 130 Units/L [facility] ALT 24 7 - 45 Units/L [facility] AST 45 10 - 45 Units/L [facility] Blood 10/01/2024 6:17 AM CDT 10/01/2024 6:25 AM CDT Ethan Dominguez MD LAB BLOOD ORDERABLES Final Result Performing Organization Address City/[facility] Co mo Phone Number KATALINA [address] [facility] Department [place] [address] * ECG 12 lead (09/30/2024 4:01 PM CDT) Pathologist [facility] Ventricular Rate EKG/Min 74 BPM [facility] Atrial Rate 74 BPM [facility] MT-Interval (MSEC) 156 ms [facility] QRS-Interval (MSEC) 136 ms [facility] QT-Interval (MSEC) 464 ms [facility] QTc 515 ms [facility] P [place] 153 degrees [facility] R [place] 31 degrees [facility] T [place] 222 degrees [facility] Diagnosis Unusual P axis, possible ectopic atrial [...] TSAI M.D. ([id number]) on 10/01/2024 8:26:53 AM [facility] 09/30/2024 4:01 PM CDT 10/01/2024 8:26 AM CDT Ethan Dominguez MD ECG ORDERABLES Final Result [facility] * CP-CRE culture, surveillance Rectal swab (09/30/2024 3:45 PM CDT) Pathologist [facility] Report Final Report: Negative Comment:Testing performed by : [facility], [address] [facility], [place]., [address] Rectal swab 09/30/2024 3:45 PM CDT 09/30/2024 6:04 PM CDT Narrative KATALINA - 10/02/2024 12:18 PM CDT Interpretive Data The screening agar used for the detection of carbapenemase-producing Enterobacterales (CP-CRE) has not been approved by the Food and Drug Administration. The performance characteristics of this medium have been evaluated and verified by the [facility]. This media demonstrates highest sensitivity for KPC and NDM-1 producing isolates. This screening assay is exclusively intended for infection control and surveillance, not for patient diagnosis or treatment purposes. Current interpretive data was last revised on 2023. us Eddie Manzanares MD LAB MICROBIOLOGY - GENERAL O RDERABLES Final Result Performing Organization Address [facility] Co de Phone Number [address]ARD[address] [place] [address] * Magnesium (09/30/2024 8:20 AM CDT) Pathologist [facility] Magnesium 1.8 1.4 - 2.5 mg/dL Blood 09/30/2024 8:20 AM CDT 09/30/2024 8:48 AM CDT us Ethan Dominguez MD LAB BLOOD ORDERABLES Final Result Performing Organization Address [facility] Co de Phone Number [place] [phone] [facility] [place] [address] * Magnesium - Add on lab test (09/30/2024 7:14 AM CDT) Pathologist [facility] Acceptable Yes Blood 09/30/2024 7:14 AM CDT 09/30/2024 7:14 AM CDT Narrative [facility] - 09/30/2024 7:15 AM CDT Name of Test->Magnesium Ethan Dominguez MD LAB BLOOD ORDERABLES Final Result Performing Organization Address City/[facility] Co de Phone Number [address] [address] * (ABNORMAL) eGFR (09/30/2024 4:08 AM CDT) [...] BLOOD ORDERABLES Final Result Performing Organization Address City/[facility]/ZIP Co de Phone Number [address]ERNARD[address] [place] [address] * Magnesium (09/30/2024 4:08 AM CDT) Magnesium 2.0 1.4 - 2.5 mg/dL Blood 09/30/2024 4:08 AM CDT 09/30/2024 4:40 AM CDT Ethan Dominguez MD LAB BLOOD ORDERABLES Final Result [facility] [address] [facility] Department [place] [address] * (ABNORMAL) Comprehensive metabolic panel (09/30/2024 4:08 AM CDT) Pathologist [facility] Sodium 133(L) 135 - 145 mmol/L Potassium, pl 4.5 3.3 - 4.9 mmol/L [facility] Comment:Hemolyzed; Potassium value may be falsely elevated by as much as 1.0 mmol/L. Suggest redraw and reanalysis. Chloride 101 97 - 110 mmol/L [facility] CO2 18(L) 22 - 32 mmol/L [facility] Anion gap 14 2 - 15 mmol/L [facility] BUN 30(H) 6 - 25 mg/dL [facility] Creatinine 1.73(H) 0.60 - 1.10 mg/dL [facility] Glucose 76 70 - 199 mg/dL [facility] Comment: Interpretive Data Fasting glucose >/= [...] 2022. Calcium 9.8 8.5 - 10.3 mg/dL [facility] Bilirubin, total 2.3(H) 0.1 - 1.2 mg/dL [facility] Protein, pl 8.0 6.5 - 8.5 g/dL [facility] Albumin 3.5 3.5 - 5.0 g/dL [facility] Alk phos 109 40 - 130 Units/L [facility] ALT 25 7 - 45 Units/L [facility] AST See Comment 10 - 45 KATALINA [facility] Comment:Credited; Hemolyzed Specimen Blood 09/30/2024 4:08 AM CDT 09/30/2024 4:40 AM CDT Ethan Dominguez MD LAB BLOOD ORDERABLES Final Result Performing Organization Address City/[facility]/ZIP Co de Phone Number KATALINA [address] [facility] Department [place] [address] * ECG 12 lead (09/29/2024 10:29 AM CDT) Pathologist [facility] Ventricular Rate EKG/Min 83 BPM [facility] Atrial Rate 83 BPM [facility] MT-Interval (MSEC) 198 ms [facility] QRS-Interval (MSEC) 130 ms [facility] QT-Interval (MSEC) 446 ms [facility] QTc 524 ms [facility] R [place] 132 degrees [facility] T [place] 232 degrees [facility] Diagnosis Sinus rhythm with occasional atrial-paced complexes and Premature atrial complexes Right axis deviation Non-specific intra-ventric ular conduction block Minimal voltage criteria for LVH, may be normal variant ( Brandon product ) T wave abnormality, consider inferior ischemia Abnormal ECG Confirmed by SARI FELIX M.D. ([id number]) on 09/29/2024 5:13:43 PM [facility] 09/29/2024 10:2 9 AM CDT 09/29/2024 5:13 PM CDT Ethan Dominguez MD ECG ORDERABLES Final Result Performing Organization Address City/[facility]/ZIP Co de Phone Number [facility] * (ABNORMAL) eGFR (09/29/2024 6:42 AM CDT) Pathologist [facility] eGFR 34(L) >=60 mL/min/1. 73 m2 Comment: [...] Dominguez MD LAB BLOOD ORDERABLES Final Result [facility] [address] [facility] Department of Laboratories [place], [place] [address] * (ABNORMAL) Comprehensive metabolic panel (09/29/2024 6:42 AM CDT) Sodium 138 135 - 145 mmol/L Potassium, pl 3.8 3.3 - 4.9 mmol/L [facility] Chloride 105 97 - 110 mmol/L [facility] CO2 22 22 - 32 mmol/L [facility] Anion gap 11 2 - 15 mmol/L [facility] BUN 28(H) 6 - 25 mg/dL [facility] Creatinine 1.74(H) 0.60 - 1.10 mg/dL [facility] Glucose 79 70 - 199 mg/dL [facility] Comment: Interpretive Data Fasting glucose >/= [...] 2022. Calcium 9.2 8.5 - 10.3 mg/dL [facility] Bilirubin, total 2.0(H) 0.1 - 1.2 mg/dL [facility] Protein, pl 6.3(L) 6.5 - 8.5 g/dL [facility] Albumin 3.0(L) 3.5 - 5.0 g/dL [facility] Alk phos 88 40 - 130 Units/L [facility] ALT 20 7 - 45 Units/L [facility] AST 33 10 - 45 Units/L [facility] Blood 09/29/2024 6:42 AM CDT 09/29/2024 7:18 AM CDT us Ethan Dominguez MD LAB BLOOD ORDERABLES Final Result [place] [address] [facility] [place] [address] * (ABNORMAL) eGFR (09/28/2024 10:37 AM CDT) [...] BLOOD ORDERABLES Final Result Performing Organization Address City/[facility] Co de Phone Number [address] [address] * Magnesium (09/28/2024 10:37 AM CDT) [facility] Magnesium 1.9 1.4 - 2.5 mg/dL Blood 09/28/2024 10:3 7 AM CDT 09/28/2024 11:02 AM CDT Ethan Mateo Dominguez MD LAB BLOOD ORDERABLES Final Result Performing Organization Address [facility] de Phone Number [address] [address] * (ABNORMAL) Basic metabolic panel (09/28/2024 10:37 AM CDT) [facility] Sodium 136 135 - 145 mmol/L Potassium, pl 4.2 3.3 - 4.9 mmol/L [facility] Comment:Hemolyzed; Potassium value may be falsely elevated by as much as 1.0 mmol/L. Suggest redraw and reanalysis. Chloride 101 97 - 110 mmol/L [facility] CO2 21(L) 22 - 32 mmol/L [facility] Anion gap 14 2 - 15 mmol/L [facility] BUN 25 6 - 25 mg/dL [facility] Creatinine 1.67(H) 0.60 - 1.10 mg/dL [facility] Glucose 132 70 - 199 mg/dL [facility] Comment: Interpretive Data Fasting glucose >/= [...] BLOOD ORDERABLES Final Result Performing Organization Address City/[facility]/ZIP Co de Phone Number KATALINA [address] [facility] [place] [address] * ECG 12 lead (09/28/2024 9:46 AM CDT) Pathologist [facility] Ventricular Rate EKG/Min 78 BPM [facility] Atrial Rate 78 BPM [facility] MT-Interval (MSEC) 152 ms [facility] QRS-Interval (MSEC) 136 ms [facility] QT-Interval (MSEC) 506 ms [facility] QTc 576 ms [facility] R [place] 120 degrees [facility] T [place] 238 degrees [facility] Diagnosis Sinus rhythm with occasional Premature ventricular complexes and Premature atrial complexes Non-specific intra-ventricula r conduction block T wave abnormality, consider inferolateral ischemia Abnormal ECG When compared with ECG of 27-SEP-2024 13:10, QRS axis Shifted right Confirmed by BRI TSAI M.D. ([id number]) on 10/01/2024 12:09:18 AM [facility] 09/28/2024 9:46 AM CDT 10/01/2024 12:09 AM CDT Ethan Dominguez MD ECG ORDERABLES Final Result Performing Organization Address [facility]/ZIP Co de Phone Number [facility] * (ABNORMAL) eGFR (09/28/2024 8:40 AM CDT) Pathologist [facility] Department eGFR 36(L) >=60 mL/min/1. 73 m2 Comment: [...] Dominguez MD LAB BLOOD ORDERABLES Final Result [facility] [address] [facility] [place] [address] * (ABNORMAL) Differential, auto (09/28/2024 8:40 AM CDT) Pathologist [facility] Neutrophil abs 1.79 1.50 - 6.50 K/cumm Imm gran abs 0.00 0.00 - 0.10 K/cumm [facility] Lymphocyte abs 1.87 0.80 - 3.30 K/cumm [facility] Monocyte abs 0.44 0.20 - 0.80 K/cumm [facility] Eosinophil abs 1.60(H) 0.00 - 0.50 K/cumm [facility] Basophil abs 0.08 0.00 - 0.10 K/cumm [facility] Neutrophil pct 30.9 % [facility] Comment: Interpretive Data Percent cell count reference ranges are not reported, since discordance with absolute values may lead to misinterpretation of CBC data. Current Interpretive Data was last revised on 2017. Imm gran pct 0.0 % [facility] Comment: Interpretive Data Percent cell count reference ranges are not reported, since discordance with absolute values may lead to misinterpretation of CBC data. Current Interpretive Data was last revised on 2017. Lymphocyte pct 32.4 % [facility] Comment: Interpretive Data Percent cell count reference ranges are not reported, since discordance with absolute values may lead to misinterpretation of CBC data. Current Interpretive Data was last revised on 2017. Monocyte pct 7.6 % [facility] Comment: Interpretive Data Percent cell count reference ranges are not reported, since discordance with absolute values may lead to misinterpretation of CBC data. Current Interpretive Data was last revised on 2017. Eosinophil pct 27.7 % [facility] Comment: Interpretive Data Percent cell count reference ranges are not reported, since discordance with absolute values may lead to misinterpretation of CBC data. Current Interpretive Data was last revised on 2017. Basophil pct 1.4 % [facility] Comment: Interpretive Data Percent cell count reference ranges are not reported, since discordance with absolute values may lead to misinterpretation of CBC data. Current Interpretive Data was last revised on 2017. Blood 09/28/2024 8:40 AM CDT 09/28/2024 8:55 AM CDT Ethan Dominguez MD LAB BLOOD ORDERABLES Final Result [facility] [address] [facility] Department [place] [address] * (ABNORMAL) CBC with auto differential (09/28/2024 8:40 AM CDT) WBC 5.78 3.80 - 9.90 K/cumm Hgb 13.4 11.9 - 15.5 g/dL [facility] Hct 44.9 35.6 - 45.5 % [facility] Plt 128(L) 150 - 400 K/cumm [facility] MPV 9.5 9.1 - 12.3 fL [facility] RBC 4.55 3.90 - 5.20 M/cumm [facility] MCV 98.7(H) 81.3 - 96.4 fL [facility] MCH 29.5 27.1 - 33.3 pg [facility] MCHC 29.8(L) 32.3 - 35.7 g/dL [facility] RDW CV 15.2(H) 11.1 - 14.9 % [facility] RDW SD 54.2(H) 35.7 - 48.1 fL [facility] NRBC abs 0.00 0.00 - 0.01 K/cumm [facility] Blood 09/28/2024 8:40 AM CDT 09/28/2024 8:55 AM CDT Ethan Dominguez MD LAB BLOOD ORDERABLES Final Result [facility] [address] [facility] Department [place] [address] * (ABNORMAL) Comprehensive metabolic panel (09/28/2024 8:40 AM CDT) Sodium 133(L) 135 - 145 mmol/L Potassium, pl 4.3 3.3 - 4.9 mmol/L [facility] Comment:Hemolyzed; Potassium value may be falsely elevated by as much as 1.0 mmol/L. Suggest redraw and reanalysis. Chloride 103 97 - 110 mmol/L [facility] CO2 16(L) 22 - 32 mmol/L [facility] Anion gap 14 2 - 15 mmol/L [facility] BUN 25 6 - 25 mg/dL [facility] Creatinine 1.66(H) 0.60 - 1.10 mg/dL [facility] Glucose 68(L) 70 - 199 mg/dL [facility] Comment: Interpretive Data Fasting glucose >/= [...] 2022. Calcium 9.1 8.5 - 10.3 mg/dL [facility] Bilirubin, total 2.9(H) 0.1 - 1.2 mg/dL [facility] Protein, pl 6.4(L) 6.5 - 8.5 g/dL [facility] Albumin 2.8(L) 3.5 - 5.0 g/dL [facility] Alk phos 94 40 - 130 Units/L [facility] ALT 24 7 - 45 Units/L [facility] AST See Comment 10 [facility] Comment:Credited; Hemolyzed Specimen Blood 09/28/2024 8:40 AM CDT 09/28/2024 8:55 AM CDT Ethan Dominguez MD LAB BLOOD ORDERABLES Final Result KATALINA [address] [place] [address] * Magnesium (09/27/2024 2:58 PM CDT) [facility] Magnesium 1.6 1.4 - 2.5 mg/dL Blood 09/27/2024 2:58 PM CDT 09/27/2024 3:02 PM CDT Ethan Dominguez MD LAB BLOOD ORDERABLES Final Result Performing Organization Address City/[facility] Co de Phone Number [address]ERNARD[address] [place] [address] * ECG 12 lead (09/27/2024 1:10 PM CDT) [facility] Ventricular Rate EKG/Min 86 BPM [facility] QRS-Interval (MSEC) 128 ms [facility] QT-Interval (MSEC) 462 ms [facility] QTc 552 ms [facility] R [place] -15 degrees [facility] T [place] 213 degrees [facility] Diagnosis Atrial fibrillation Non-specific intra-ventricula r conduction block Minimal voltage criteria for LVH, may be normal variant ( Brandon product ) T wave abnormality, consider inferolateral ischemia Abnormal ECG When compared with ECG of 26-SEP-2024 15:29, No significant change was found Confirmed by PIPO CALVO M.D. ([id number]) on 09/27/2024 2:57:43 PM [facility] 09/27/2024 1:10 PM CDT 09/27/2024 2:57 PM CDT us Ethan Dominguez MD ECG ORDERABLES Final Result [facility] * TRANSTHORACIC ECHO (TTE) COMPLETE W DOPPLER/CF W CONTRAST (09/27/2024 11:30 AM CDT) LV EF 10-15 % CONS SCIMAGE Anatomical Region Laterality Modality Ultrasound 09/27/2024 10:5 3 AM CDT Narrative 09/29/2024 5:27 PM CDT Transthoracic Echocardiographic Report Patient Name: VARUN SANABRIA D : 1970 (54y 3m) Gender: F Study Date: 09/27/2024 10:53:53 AM Ht(Inch): 61 Wt(Lb): 217.99 BSA: 2.06 Salon Professional: Lanie Rivero RDCS Location: [id number] Order Provider: DU MORGAN Heart Rate: 84 BMI: 41.18 BP: 86 / 56 Ref Provider: DU MORGAN PROCEDURES: Echocardiographic Report: ([id number]) Transthoracic complete echo, 2D, spectral and tissue [...] AM Ht(Inch): 61 Wt(Lb): 217.99 BSA: 2.06 Salon Professional: Lanie Rivero RDCS Location: [id number] Order Provider:DU MORGAN Heart Rate: 84 BMI: 41.18 BP: 86 / 56 Ref Provider: DU MORGAN PROCEDURES: Echocardiographic Report: ([id number]) Transthoracic complete echo, 2D,spectral and tissue Doppler, [...] MD LAB BLOOD ORDERABLES Final R esult [place] [id number] [facility] Department [place] [address] * (ABNORMAL) CBC without differential (09/27/2024 4:45 AM CDT) WBC 7.47 3.80 - 9.90 K/cumm Hgb 13.4 11.9 - 15.5 g/dL [facility] Hct 44.3 35.6 - 45.5 % [facility] Plt 142(L) 150 - 400 K/cumm [facility] MPV 9.3 9.1 - 12.3 fL [facility] RBC 4.58 3.90 - 5.20 M/cumm [facility] MCV 96.7(H) 81.3 - 96.4 fL [facility] MCH 29.3 27.1 - 33.3 pg [facility] MCHC 30.2(L) 32.3 - 35.7 g/dL [facility] RDW CV 14.8 11.1 - 14.9 % [facility] RDW SD 51.5(H) 35.7 - 48.1 fL [facility] NRBC abs 0.00 0.00 - 0.01 K/cumm [facility] Blood 09/27/2024 4:45 AM CDT 09/27/2024 4:58 AM CDT Du Morgan MD LAB BLOOD ORDERABLES Final R esult KATALINA [address] [place] [address] * Magnesium (09/27/2024 4:45 AM CDT) [facility] Magnesium 1.5 1.4 - 2.5 mg/dL Blood 09/27/2024 4:45 AM CDT 09/27/2024 4:58 AM CDT Du Morgan MD LAB BLOOD ORDERABLES Final R esult Performing Organization Address [facility] Co de Phone Number [address] [place] [address] * (ABNORMAL) Hepatic function panel (09/27/2024 4:45 AM CDT) [facility] Bilirubin, total 3.0(H) 0.1 - 1.2 mg/dL Bilirubin, direct 1.0(H) 0.1 - 0.3 mg/dL [facility] Protein, pl 6.6 6.5 - 8.5 g/dL [facility] Albumin 3.2(L) 3.5 - 5.0 g/dL [facility] Alk phos 93 40 - 130 Units/L [facility] ALT 26 7 - 45 Units/L [facility] AST 39 10 - 45 Units/L [facility] Blood 09/27/2024 4:45 AM CDT 09/27/2024 4:58 AM CDT Du Morgan MD LAB BLOOD ORDERABLES Final R esult Performing Organization Address City/[facility] Co de Phone Number KATALINA [address] [place] [address] * (ABNORMAL) Basic metabolic panel (09/27/2024 4:45 AM CDT) [facility] Sodium 137 135 - 145 mmol/L Potassium, pl 3.6 3.3 - 4.9 mmol/L [facility] Chloride 102 97 - 110 mmol/L [facility] CO2 23 22 - 32 mmol/L [facility] Anion gap 12 2 - 15 mmol/L [facility] BUN 20 6 - 25 mg/dL [facility] Creatinine 1.59(H) 0.60 - 1.10 mg/dL [facility] Glucose 74 70 - 199 mg/dL [facility] Comment: Interpretive Data Fasting glucose >/= [...] 2022. Calcium 9.3 8.5 - 10.3 mg/dL [facility] Blood 09/27/2024 4:45 AM CDT 09/27/2024 4:58 AM CDT Du Morgan MD LAB BLOOD ORDERABLES Final R esult [facility] [address] [facility] Department [place] [address] * (ABNORMAL) Troponin T high-sensitivity 6-hour (09/26/2024 9:20 PM CDT) Trop T hs 45(H) <=14 ng/L Comment: Interpretive Data For further hscTnT resources including the diagnostic algorithm and an aid in interpretation, copy and paste this link: https://nrl.testcatalog.org/show/hsTrop Current Interpretive Data last revised 2020. Trop T hs delta -3 ng/L [facility] Trop T hs interp Insignificant [facility] Blood 09/26/2024 9:20 PM CDT 09/26/2024 9:24 PM CDT Sailaja BANKS LAB BLOOD ORDERABLES Final Result Performing Organization Address City/[facility]/ZIP Co de Phone Number KATALINA [address] [facility] [employer] [address] * Blood culture Blood Blood (09/26/2024 8:40 PM CDT) Report Final Report: No growth Comment:Testing performed by : [facility], [address] [place]., [address] Blood (Blood) 09/26/2024 8:4 0 PM CDT [...] performance characteristics have been verified by the [facility] Microbiology Laboratory. For questions about this culture, contact the Microbiology Laboratory at [phone]. Interpretive data was last revised on 24. us Angela Kirk MD LAB MICROBIOLOGY - GENERAL ORDERABLES Final Result Performing Organization Address City/[facility]/ZIP Co de Phone Number KATALINA [address] [facility] [employer] [place] [address] * Blood culture Blood Blood (09/26/2024 8:39 PM CDT) Report Final Report: No growth Comment:Testing performed by : [facility], [address] [place]., [address] Blood (Blood) 09/26/2024 8:3 9 PM CDT [...] performance characteristics have been verified by the [facility] Microbiology Laboratory. For questions about this culture, contact the Microbiology Laboratory at [phone]. Interpretive data was last revised on 24. us Angela Kirk MD LAB MICROBIOLOGY - GENERAL ORDERABLES Final Result KATALINA [place] [address] [facility] Department [place] [address] * (ABNORMAL) Urinalysis reflex to microscopic and culture Urine (09/26/2024 6:27 PM CDT) Color, ur Yellow Yellow Clarity, ur Turbid(A) Clear KATALINA [place] Specific gravity, ur 1.013 1.003 - 1.030 [facility] pH, urine 5.5 [facility] Comment: Interpretive Data U rine pH is affected by diet, medications, systemic acid-base disturbances, and renal tubular function. pH may affect urinary stone formation. For example, urine pH below 6.0 may help reduce the tendency for calcium phosphate stones and pH greater than 6.0 may reduce the tendency for uric acid stone formation. Source: [facility] Current Interpretive Data was last revised on 2017 Protein, ur ql 2+(A) Negative [facility] Glucose, ur ql Negative Negative [facility] Ketones, ur Negative Negative [facility] Bilirubin, ur Negative Negative [facility] Blood, ur 2+(A) Negative [facility] Urobilinogen, ur 4.0(A) <2.0 mg/dL [facility] Nitrite, ur Negative Negative [facility] Leukocyte esterase, ur 4+(A) Negative [facility] UA reflex comment Reflex to microscopic UA will be performed. [facility] Urine 09/26/2024 6:27 PM CDT 09/26/2024 6:31 PM CDT Deacon BANKS LAB MICROBIOLOGY - GENERAL O RDERABLES Final Result Performing Organization Address [facility] de Phone Number [address] Department [place] [address] * (ABNORMAL) Urinalysis, microscopic only (09/26/2024 6:27 PM CDT) WBC, ur >50(A) 0 - 5 /HPF RBC, ur 11-20(A) 0 - 2 /HPF [facility] Epithelial cells, squamous, ur 1-5 0 - 5 /HPF [facility] Bacteria, ur 4+(A) [facility] Culture Reflex Comment Reflex to urine culture will be performed. [facility] Urine 09/26/2024 6:27 PM CDT 09/26/2024 6:31 PM CDT Deacon BANKS LAB URINE ORDERABLES Final R esult Performing Organization Address [facility] Co de Phone Number [place] [address] [facility] Department [place] [address] * (ABNORMAL) Urine culture Urine (09/26/2024 6:27 PM CDT) Report Final Report: Greater than or equal to 100,000 colonies/mL of Escherichia coli Plus growth of clinically insignificant bacterial guzman. (.) Comment:Testing performed by : [facility], [address] [place]., [address] Organism ESCHERICHIA COLI [facility] Organism PLUS GROWTH OF CLINICALLY INSIGNIFICANT GUZMAN. [facility] Urine 09/26/2024 6:27 PM CDT 09/26/2024 9:46 PM CDT Narrative [facility] - 09/28/2024 4:58 PM CDT Urine culture reflexed based upon urinalysis results. Testing performed by [facility] Microbiology Laboratory ([phone]) Organism Antibiotic Method Susceptibility Escherichia coli Ampicillin [...] MICROBIOLOGY - GENERAL O RDERABLES Final Result [facility] [address] [facility] Department [place] [address] * (ABNORMAL) Troponin T high-sensitivity 2-hour (09/26/2024 [...] LAB BLOOD ORDERABLES Final Result KATALINA [place]KE[place] [address] [facility] [place] [address] * XR Chest 1 Vw Portable (if patient condition/safety warrant portable) (09/26/2024 3:46 PM CDT) Anatomical Region Laterality Modality Body, Chest N/A Computed Radiogr aphy 09/26/2024 4:32 PM CDT Narrative 09/26/2024 4:33 PM CDT EXAM DESCRIPTION: XR CHEST 1 VIEW REASON FOR STUDY: Shortness of breath BIBEMS from [facility]. Pt states to increased SOB, weakness, bilateral lower extremity swelling for the last week. States to taking medication as rx. Pt went to PCP today and was told her O2 level was low. Pt then drove back to [facility] where they checked her O2 and [...] by Fredy Adler M.D. T: Report ID: [id number] Reading Location: [place] [address] Procedure Note Fredy Adler MD - 09/26/2024 EXAM DESCRIPTION: XR CHEST 1 VIEW REASON FOR STUDY: Shortness of breath BIBEMS from [facility]. Pt states to increased SOB, weakness, bilateral lower extremity swelling for the last week. States totaking medication as rx. Pt went to PCP today and was told her O2 level waslow. Pt then drove back to [facility] where they checked her O2 and [...] by Fredy Adler M.D. T: Report ID: [id number] Reading Location: [place] [address] Angela Kirk MD IMG XR PROCEDURES Final Res ult * ECG 12 lead (09/26/2024 3:29 PM CDT) Ventricular Rate EKG/Min 112 BPM [facility] Atrial Rate 122 BPM [facility] QRS-Interval (MSEC) 134 ms [facility] QT-Interval (MSEC) 306 ms [facility] QTc 417 ms [facility] R [place] -16 degrees [facility] T [place] 196 degrees [facility] Diagnosis Atrial fibrillation with rapid ventricular response with premature ventricular or aberrantly conducted complexes Non-specific intra-ventricul ar conduction block T wave abnormality, consider inferior ischemia Abnormal ECG When compared with ECG of 06-OCT-2023 15:19, Atrial fibrillation has replaced Sinus rhythm Confirmed by PIPO CALVO M.D. ([id number]) on 09/27/2024 12:34:53 PM [facility] 09/26/2024 3:29 PM CDT 09/27/2024 12:34 PM CDT Angela Kirk MD ECG ORDERABLES Final Resul t Performing Organization Address City/[facility] de Phone Number [facility] [employer] [facility] * (ABNORMAL) Troponin T high-sensitivity series (baseline, 2hr, 4hr, 6hr) (09/26/2024 3:15 PM CDT) [facility] Trop T hs 48(H) <=14 ng/L Comment: Interpretive Data For further hscTnT resources including the diagnostic algorithm and an aid in interpretation, copy and paste this link: https://nrl.testcatalog.org/show/hsTrop Current Interpretive Data last revised 2020. Blood 09/26/2024 3:15 PM CDT 09/26/2024 3:23 PM CDT Angela Kirk MD LAB BLOOD ORDERABLES Final Result Performing Organization Address [facility] de Phone Number [facility] [address] [facility] Department [place] [address] * Influenza A/B, RSV, and COVID-19 PCR Nasopharyngeal (09/26/2024 3:15 PM CDT) [facility] COVID-19 RNA Negative Negative Influenza A RNA Negative Negative KATALINA Influenza B RNA Negative Negative KAT[place]INA RSV RNA Negative Negative [facility] Comment: Interpretive data: Testing performed by [facility]. This test is performed using the [employer] Xpert Xpress CoV-2/Flu/RSV plus assay. This is a multiplex, real-time reverse transcriptase PCR assay intended for the qualitative detection of nucleic acid from SARS-CoV-2, influenza A, influenza B, and respiratory syncytial virus. This assay has been cleared by the [place] Food and Drug administration. The performance characteristics have been verified by the [facility]. Results must be considered in the clinical context, and a negative result does not rule out infection. Interpretive Data last revised 2023 Nasopharyngeal 09/26/2024 3: 15 PM CDT 09/26/2024 3:23 PM CDT Narrative KATALINA - 09/26/2024 4:03 PM CDT Is the Patient experiencing symptoms consistent with COVID?->No Angela Kirk MD LAB MICROBIOLOGY - GENERAL ORDERABLES Final Result Performing Organization Address City/[facility]/ZIP Co de Phone Number KATALINA [address] [place] [address] * (ABNORMAL) eGFR (09/26/2024 3:15 PM CDT) [...] Kirk MD LAB BLOOD ORDERABLES Final Result [facility] [address] [facility] [place] [address] * (ABNORMAL) Differential, auto (09/26/2024 3:15 PM CDT) Neutrophil abs 4.26 1.50 - 6.50 K/cumm Imm gran abs 0.02 0.00 - 0.10 K/cumm [facility] Lymphocyte abs 1.56 0.80 - 3.30 K/cumm [facility] Monocyte abs 0.48 0.20 - 0.80 K/cumm [facility] Eosinophil abs 0.76(H) 0.00 - 0.50 K/cumm [facility] Basophil abs 0.10 0.00 - 0.10 K/cumm [facility] Neutrophil pct 59.3 % [facility] Comment: Interpretive Data Percent cell count reference ranges are not reported, since discordance with absolute values may lead to misinterpretation of CBC data. Current Interpretive Data was last revised on 2017. Imm gran pct 0.3 % [facility] Comment: Interpretive Data Percent cell count reference ranges are not reported, since discordance with absolute values may lead to misinterpretation of CBC data. Current Interpretive Data was last revised on 2017. Lymphocyte pct 21.7 % [facility] Comment: Interpretive Data Percent cell count reference ranges are not reported, since discordance with absolute values may lead to misinterpretation of CBC data. Current Interpretive Data was last revised on 2017. Monocyte pct 6.7 % [facility] Comment: Interpretive Data Percent cell count reference ranges are not reported, since discordance with absolute values may lead to misinterpretation of CBC data. Current Interpretive Data was last revised on 2017. Eosinophil pct 10.6 % [facility] Comment: Interpretive Data Percent cell count reference ranges are not reported, since discordance with absolute values may lead to misinterpretation of CBC data. Current Interpretive Data was last revised on 2017. Basophil pct 1.4 % [facility] Comment: Interpretive Data Percent cell count reference ranges are not reported, since discordance with absolute values may lead to misinterpretation of CBC data. Current Interpretive Data was last revised on 2017. Blood 09/26/2024 3:15 PM CDT 09/26/2024 3:23 PM CDT us Angela Kirk MD LAB BLOOD ORDERABLES Final Result [facility] [address] [facility] Department [place] [address] * (ABNORMAL) Pro B-type natriuretic peptide (09/26/2024 [...] ORDERABLES Final R esult Performing Organization Address [facility] Co de Phone Number [address] [address] * (ABNORMAL) CBC with auto differential (09/26/2024 3:15 PM CDT) [facility] WBC 7.18 3.80 - 9.90 K/cumm Hgb 14.4 11.9 - 15.5 g/dL [facility] Hct 45.7(H) 35.6 - 45.5 % [facility] Plt 154 150 - 400 K/cumm [facility] MPV 9.3 9.1 - 12.3 fL [facility] RBC 4.89 3.90 - 5.20 M/cumm [facility] MCV 93.5 81.3 - 96.4 fL [facility] MCH 29.4 27.1 - 33.3 pg [facility] MCHC 31.5(L) 32.3 - 35.7 g/dL [facility] RDW CV 14.6 11.1 - 14.9 % [facility] RDW SD 49.4(H) 35.7 - 48.1 fL [facility] NRBC abs 0.00 0.00 - 0.01 K/cumm [facility] Blood 09/26/2024 3:15 PM CDT 09/26/2024 3:23 PM CDT us Angela Kirk MD LAB BLOOD ORDERABLES Final Result Performing Organization Address [facility] Co de Phone Number [address] [place] [address] * (ABNORMAL) Comprehensive metabolic panel (09/26/2024 3:15 PM CDT) [facility] Sodium 137 135 - 145 mmol/L Potassium, pl 3.5 3.3 - 4.9 mmol/L [facility] Chloride 99 97 - 110 mmol/L [facility] CO2 23 22 - 32 mmol/L [facility] Anion gap 15 2 - 15 mmol/L [facility] BUN 20 6 - 25 mg/dL [facility] Creatinine 1.66(H) 0.60 - 1.10 mg/dL [facility] Glucose 115 70 - 199 mg/dL [facility] Comment: Interpretive Data Fasting glucose >/= [...] 2022. Calcium 9.6 8.5 - 10.3 mg/dL [facility] Bilirubin, total 3.0(H) 0.1 - 1.2 mg/dL [facility] Protein, pl 7.6 6.5 - 8.5 g/dL [facility] Albumin 3.7 3.5 - 5.0 g/dL [facility] Alk phos 118 40 - 130 Units/L [facility] ALT 35 7 - 45 Units/L [facility] AST 46(H) 10 - 45 Units/L [facility] Blood 09/26/2024 3:15 PM CDT 09/26/2024 3:23 PM CDT Angela Kirk MD LAB BLOOD ORDERABLES Final Result Performing Organization Address City/State/[facility] de Phone Number [facility] [address] [facility] [place] [address] from Last 3 Months Insurance [facility] Member Subscriber Plan / Payer (Ef fective 2022-Present) Name:Varun Sanabria Relation to Subscriber:Self Name:Varun Sanabria Payer ID:[id number] (NAIC) Group ID:Not on file Type:MEDICAID RISK OTHER Address: ATTN: CLAIMS DEPT [address] [place] [id number] [facility] Advance Directives For more information, please contact: [phone] Documents on File Type Date Recorded 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 Hand Expl 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 ADVANCE DIRECTIVE 02/18/2022 2:53 PM Power of Inspector And Tester-Medical * Full Code (Latest Code Status on File) Date Activated Date Inactivated Comments 09/26/2024 11:29 PM 10/02/2024 7:33 PM * Full Code Date Activated Date Inactivated Comments 10/06/2023 9:22 PM 10/11/2023 6:59 PM * Full Code Date Activated Date Inactivated Comments 09/14/2022 3:55 PM 09/15/2022 3:31 PM * Full Code Date Activated Date Inactivated Comments 02/18/2022 3:21 AM 02/24/2022 12:30 AM Care Teams 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
--- OUTSIDE RECORDS SUMMARY | 2024-11-25 23:20 | XMS_ITS | Referral Summary ---
Author Organization [facility] Virtual Care Address [address] [place] [phone] Phone Care Team Providers Care Speech Lang Path Therapist Name Role Phone Soumya Araujo MD Primary Care Provider [phone] Sultan Louis Cao MD Unavailable [phone] Encounters Date Type Department Care Team Description 11/19/2024 Home Care Visit [place] [address] [address] [place] [id number] Rosangela Chauhan, PT PT NON ADMIT 11/19/2024 Travel 11/19/2024 Telephone [facility] [address] [facility] [facility] [address] [place] [address] Rosette Mckeon RN 11/19/2024 Telephone [facility] [address] [facility] [place] [address] Rosette Mckeon, RN 11/19/2024 Telephone [facility] [address] [facility] [facility] [address] [place] [phone] Rosette Mckeon RN 11/19/2024 Telephone [facility] [address] [facility] [facility] [address] [place] [address] Rosette Mckeon, RN 11/19/2024 Telephone [facility] [address] [facility] [facility] [address] [place] [phone] Rosette Mckeon RN 10/07/2024 TCC Subsequent [facility]reach [facility] [address] [place] [phone] Jorge Jack, RN 09/26/2024 5:33 PM CDT - 10/02/2024 3:15 PM CDT Hospital Encounter [facility] [address] [place] [phone] Angela Kirk MD Georgiyev, Sergiy, MD Saturno Arias, MD Aaliyah Torres Saim, DO Winston, Carlo Leal MD Acute on chronic congestive heart failure, unspecified heart failure type (HCC) (Primary Dx); Acute UTI Discharge Disposition: Discharge to [facility]ci facility 09/27/2024 TCC Initial Eligibility Review [facility] [address] [place] [id number] Jorge Jack, RN from Last 3 Months [...] total) by mouth daily 4 Active vit O-O-hoiugr-zinc -lutein 226-90-0.8-5 mg capsule Take 1 capsule [...] & Plan (10/02/2024 3:08 PM CDT): Consulting paintless dent repair technician felt this was related to the patient's [...] & Plan (10/01/2024 2:22 PM CDT): Consulting paintless dent repair technician felt this was related to the patient's sepsis. patient already has ICD in place in left upper chest. Patient denies any shocks/defibrillation. - device interrogation ordered and remains pending. Continue patient on Coreg 6.25 mg BID. Patient is on continuous telemetry. Telemetry reviewed and no further ventricular ectopy noted in the past 24 hours. Typical atrial flutter 11/17/2023 Paroxysmal atrial fibrillation 11/17/2023 senior care current use of anticoagulant 4 High risk medication use 11/17/2023 ICD (implantable cardioverter-defibrillator) in place 11/17/2023 Overview (07/23/2024): [employer] 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VT, NICM [...] drink = 0.6 oz pur e alcohol) [facility] Utilities Answer Date Recorded In the past 12 months has [employer], gas, oil, or water [employer] threatened to shut off services in your home? No 09/27/2024 Social Connection and Isolation Panel [NHANES] A nswer Date Recorded In a typical week, how many times do you talk on the phone with family, friends, or neighbors? Never 09/27/2024 How often do you get together with friends or re latives? Never 09/27/2024 How often do you attend baptism or sikhism serv ices? Never 09/27/2024 Do you belong to any clubs o r organizations such as baptism groups, unions, fraternal or athletic groups, or [...] place to sleep or slept in a prison (including now)? Patient declined 10/09/2023 Housing Stability [...] time in the past 12 m [facility], were you homeless or living in a prison (including now)? No 09/27/2024 Personal Safety Answer Date Recorded Have you ever been in or are you currently in a harmful physical or emotional relationship or is someone making you feel afraid or unsafe? 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 Gender Identity Female 01/10/2024 9:21 AM CDT [...] on file Medical Devices Implanted Type Area Wares Sorter Device Identifier Shelf Expiration Date Model / Serial / Lot [employer] Vascade Mvp 6-12fr Venous Closure [id number] - [id number] - [id number] Implanted:Qty: 1 on 09/14/2022 by Parminder Meadows MD at [facility] Collagen Right: Femoral [employer] 04/25/2024 800-612C -10U / [id number] / [id number] [employer] Vascade Mvp 6-12fr Venous Closure [id number] - [id number] - [id number] Implanted:Qty: 1 on 09/14/2022 by Parminder Meadows MD at [facility] Collagen Right: Femoral [employer] 05/30/2024 800-612C -10U / [id number] 212C / [id number] 212C [employer] Vascade Mvp 6-12fr Venous Closure [id number] - [id number] - [id number] Implanted:Qty: 1 on 09/14/2022 by Parminder Meadows MD at [facility] Collagen Left: Femoral [employer] 05/30/2024 800-612C -10U / [id number] 212C / [id number] 212C [employer] Vascade Mvp 6-12fr Venous Closure [id number] - [id number] - [id number] Implanted:Qty: 1 on 09/14/2022 by Parminder Meadows MD at [facility] Collagen Left: Femoral [employer] 05/30/2024 800-612C -10U / [id number] 212C / [id number] 212C [employer] Angio-Seal Vip 6fr Closere Device [id number] - [id number] Implanted:Qty: 1 on 02/18/2022 by Duke Armenta MD at [facility] [employer] 11/16/2022 [id number] / / [id number] [employer]ell [employer] Dynagen Enduralife Easyview Hf Perspectiv 5.37x7.68cm 2 Chamber D152 - [id number] - [id number] Implanted:Qty: 1 on 02/22/2022 by Jordy Patton MD at [facility] [employer] [id number] 09/23/2023 D152 / [id number] / [employer]ell [employer] Kermit [place] 4-Front 59cm Active Fixation Lead Icd 0672 - [id number] - [id number] Implanted:Qty: 1 on 02/22/2022 by Jordy Patton MD at [facility] [employer]ell [employer] Kermit [id number] 09/23/2023 0672 / [id number] / [employer] Lab21 Lead 7841 Endocardial Pacing Mr Is-1 Bipolar Connection 7841 - [id number] - [id number] Implanted:Qty: 1 on 02/22/2022 by Jordy Patton MD at [facility] [employer] Scientific Kermit [id number] 02/04/2024 7841 / [id number] / Medtronic Inc Tyrx Absorbable Antibacterial Envelope-Large 3.3x2.9in [id number] - [id number] Implanted:Qty: 1 on 02/22/2022 by Joryd Patton MD at [facility] [employer] [id number] / / Procedures Procedure Name Priority Date/Time [...] Dominguez MD LAB BLOOD ORDERABLES Final Result [facility] [address] [facility] Department [place] [address] * (ABNORMAL) Pro B-type natriuretic [...] 10/02/2024 10:13 AM CDT us Soumya Marcelo PATIENT ADVOCATE LAB BLOOD ORDERABLES Final Res ult [facility] [address] [facility] [place] [address] * Magnesium (10/02/2024 9:49 AM CDT) Magnesium 1.8 1.4 - 2.5 mg/dL Blood 10/02/2024 9:49 AM CDT 10/02/2024 10:13 AM CDT us Soumya Marcelo PATIENT ADVOCATE LAB BLOOD ORDERABLES Final Res ult [facility] [address] [facility] Department [place] [address] * (ABNORMAL) Comprehensive metabolic panel (10/02/2024 9:49 AM CDT) Sodium 133(L) 135 - 145 mmol/L Potassium, pl 4.6 3.3 - 4.9 mmol/L [facility] Comment:Hemolyzed; Potassium value may be falsely elevated by as much as 1.0 mmol/L. Suggest redraw and reanalysis. Chloride 99 97 - 110 mmol/L [facility] CO2 24 22 - 32 mmol/L [facility] Anion gap 10 2 - 15 mmol/L [facility] BUN 29(H) 6 - 25 mg/dL [facility] Creatinine 1.72(H) 0.60 - 1.10 mg/dL [facility] Glucose 74 70 - 199 mg/dL [facility] Comment: Interpretive Data Fasting glucose >/= 126 [...] 2022. Calcium 9.1 8.5 - 10.3 mg/dL [facility] Bilirubin, total 2.4(H) 0.1 - 1.2 mg/dL [facility] Protein, pl 6.3(L) 6.5 - 8.5 g/dL [facility] Albumin 2.9(L) 3.5 - 5.0 g/dL [facility] Alk phos 95 40 - 130 Units/L [facility] ALT 26 7 - 45 Units/L [facility] AST See Comment 10 [facility] Comment:Credited; Hemolyzed Specimen Blood 10/02/2024 9:49 AM CDT 10/02/2024 10:13 AM CDT us Ethan Dominguez MD LAB BLOOD ORDERABLES Final Result Performing Organization Address [facility] Co de Phone Number KATALINA [address] [address] * (ABNORMAL) Hemoglobin A1c (10/01/2024 2:13 PM CDT) Pathologist [facility] Hgb A1C 6.0(H) 4.0 - 5.6 % Estimated Average Glucose 126 mg/dL [facility] Comment: The ADA recommends reporting an estimated Average Glucose (eAG) with all Hemoglobin A1c results using the equation derived from a study of 507 normal and diabetic adults. Minority populations were underrepresented and children were not included. (Diabetes Care 31:7995-0802, 2008). The eAG is not equivalent to a fasting glucose. Blood 10/01/2024 2:13 PM CDT 10/01/2024 3:17 PM CDT us Soumya Marcelo NP LAB BLOOD ORDERABLES Final Res ult Performing Organization Address [facility] Co de Phone Number [address]ERNARD[address] [address] * ECG 12 lead (10/01/2024 9:52 AM CDT) [facility] Ventricular Rate EKG/Min 74 BPM [facility] Atrial Rate 74 BPM [facility] OK-Interval (MSEC) 156 ms [facility] QRS-Interval (MSEC) 138 ms [facility] QT-Interval (MSEC) 470 ms [facility] QTc 521 ms [facility] R Beccaria 8 degrees [facility] T Beccaria 230 degrees [facility] Diagnosis Sinus rhythm with marked sinus arrhythmia Non-specific intra-ventricula r conduction block T wave abnormality, consider inferolateral ischemia Abnormal ECG When compared with ECG of 30-SEP-2024 16:01, Sinus rhythm has replaced Ectopic atrial rhythm Confirmed by SULTAN CAO M.D. ([id number]) on 10/01/2024 4:19:42 PM [facility] 10/01/2024 9:52 AM CDT 10/01/2024 4:19 PM CDT us Ethan Dominguez MD ECG ORDERABLES Final Result [facility] * Magnesium - Add on lab test (10/01/2024 9:00 AM CDT) Acceptable Yes Blood 10/01/2024 9:00 AM CDT 10/01/2024 9:00 AM CDT Narrative KATALINA - 10/01/2024 9:01 AM CDT Name of Test->Magnesium Ethan Dominguez MD LAB BLOOD ORDERABLES Final Result Performing Organization Address City/[facility]/ZIP Co de Phone Number KATALINA [address] [facility] Department of Laboratories [place] [phone] * (ABNORMAL) eGFR (10/01/2024 6:17 AM CDT) [...] LAB BLOOD ORDERABLES Final Result K[facility]INA [address] [facility] Department [place] [address] * (ABNORMAL) Pro B-type natriuretic peptide (10/01/2024 [...] BLOOD ORDERABLES Final Result Performing Organization Address City/[facility]/ZIP Co de Phone Number [address] [address] * (ABNORMAL) TSH (10/01/2024 6:17 AM CDT) Thyroid Stimulating Hormone 7.85(H) 0.30 - 4.20 mcIUnit/mL Blood 10/01/2024 6:17 AM CDT 10/01/2024 6:25 AM CDT Ethan Dominguez MD LAB BLOOD ORDERABLES Final Result Performing Organization Address [facility] de Phone Number [address] [address] * Phosphorus (10/01/2024 6:17 AM CDT) Pathologist [facility] Phosphorus, pl 4.3 2.3 - 4.5 mg/dL Blood 10/01/2024 6:17 AM CDT 10/01/2024 6:25 AM CDT Ethan Dominguez MD LAB BLOOD ORDERABLES Final Result Performing Organization Address [facility] Co de Phone Number [address] [address] * Magnesium (10/01/2024 6:17 AM CDT) [facility] Magnesium 1.8 1.4 - 2.5 mg/dL Blood 10/01/2024 6:17 AM CDT 10/01/2024 6:25 AM CDT Ethan Dominguez MD LAB BLOOD ORDERABLES Final Result Performing Organization Address City/[facility]/ZIP Co de Phone Number [address] [place] [address] * (ABNORMAL) Lipid panel (10/01/2024 6:17 AM [...] MD LAB BLOOD ORDERABLES Final Result KATALINA [address] [facility] Department [place] [address] * (ABNORMAL) Comprehensive metabolic panel (10/01/2024 6:17 AM CDT) Sodium 137 135 - 145 mmol/L Potassium, pl 4.7 3.3 - 4.9 mmol/L [facility] Chloride 103 97 - 110 mmol/L [facility] CO2 22 22 - 32 mmol/L [facility] Anion gap 12 2 - 15 mmol/L [facility] BUN 29(H) 6 - 25 mg/dL [facility] Creatinine 1.72(H) 0.60 - 1.10 mg/dL [facility] Glucose 84 70 - 199 mg/dL [facility] Comment: Interpretive Data Fasting glucose >/= 126 [...] 2022. Calcium 9.4 8.5 - 10.3 mg/dL [facility] Bilirubin, total 2.3(H) 0.1 - 1.2 mg/dL [facility] Protein, pl 6.9 6.5 - 8.5 g/dL [facility] Albumin 3.3(L) 3.5 - 5.0 g/dL [facility] Alk phos 93 40 - 130 Units/L [facility] ALT 24 7 - 45 Units/L [facility] AST 45 10 - 45 Units/L [facility] Blood 10/01/2024 6:17 AM CDT 10/01/2024 6:25 AM CDT Ethan Dominguez MD LAB BLOOD ORDERABLES Final Result [facility] [address] [facility] Department [place] [address] * ECG 12 lead (09/30/2024 4:01 PM CDT) Pathologist [facility] Ventricular Rate EKG/Min 74 BPM [facility] Atrial Rate 74 BPM [facility] OK-Interval (MSEC) 156 ms [facility] QRS-Interval (MSEC) 136 ms [facility] QT-Interval (MSEC) 464 ms [facility] QTc 515 ms [facility] P Beccaria 153 degrees [facility] R Beccaria 31 degrees [facility] T Beccaria 222 degrees [facility] Diagnosis Unusual P axis, possible ectopic atrial rhythm Non-specific intra-ventricula r conduction block Minimal voltage criteria for LVH, may be normal variant ( [place] product ) T wave abnormality, consider inferolateral ischemia Abnormal ECG When compared with ECG of 29-SEP-2024 10:29, Ectopic atrial rhythm has replaced Electronic atrial pacemaker QRS axis Shifted left T wave inversion now evident in Lateral leads Confirmed by BRI TSAI M.D. ([id number]) on 10/01/2024 8:26:53 AM [facility] 09/30/2024 4:01 PM CDT 10/01/2024 8:26 AM CDT us Ethan Dominguez MD ECG ORDERABLES Final Result Performing Organization Address City/[facility]/ZIP Co de Phone Number [facility] * CP-CRE culture, surveillance Rectal swab (09/30/2024 3:45 PM CDT) Report Final Report: Negative Comment:Testing performed by : [facility], [address] [place]., [address] Rectal swab 09/30/2024 3:45 PM CDT 09/30/2024 6:04 PM CDT Narrative KATALINA - 10/02/2024 12:18 PM CDT Interpretive Data The screening agar used for the detection of carbapenemase-producing Enterobacterales (CP-CRE) has not been approved by the Food and Drug Administration. The performance characteristics of this medium have been evaluated and verified by the [facility]. This media demonstrates highest sensitivity for KPC and NDM-1 producing isolates. This screening assay is exclusively intended for infection control and surveillance, not for patient diagnosis or treatment purposes. Current interpretive data was last revised on 2023. us Eddie Manzanares MD LAB MICROBIOLOGY - GENERAL O RDERABLES Final Result [facility] [address] [facility] Department [place] [address] * Magnesium (09/30/2024 8:20 AM CDT) Pathologist [facility] Magnesium 1.8 1.4 - 2.5 mg/dL Blood 09/30/2024 8:20 AM CDT 09/30/2024 8:48 AM CDT Ethan Dominguez MD LAB BLOOD ORDERABLES Final Result Performing Organization Address City/[facility] Co de Phone Number [address]ERNARD[address] [place] [address] * Magnesium - Add on lab test (09/30/2024 7:14 AM CDT) Pathologist [facility] Acceptable Yes Blood 09/30/2024 7:14 AM CDT 09/30/2024 7:14 AM CDT Narrative [facility] 09/30/2024 7:15 AM CDT Name of Test->Magnesium Ethan Dominguez MD LAB BLOOD ORDERABLES Final Result Performing Organization Address City/[facility] de Phone Number [address] [place] [address] * (ABNORMAL) eGFR (09/30/2024 4:08 AM CDT) Pathologist [facility] eGFR 34(L) >=60 mL/min/1. 73 m2 Comment: [...] BLOOD ORDERABLES Final Result Performing Organization Address [facility] Co de Phone Number [address] [place] [employer] [address] * Magnesium (09/30/2024 4:08 AM CDT) [facility] Magnesium 2.0 1.4 - 2.5 mg/dL Blood 09/30/2024 4:08 AM CDT 09/30/2024 4:40 AM CDT Ethan Dominguez MD LAB BLOOD ORDERABLES Final Result Performing Organization Address [facility] de Phone Number [address] [place] [address] * (ABNORMAL) Comprehensive metabolic panel (09/30/2024 4:08 AM CDT) Pathologist [facility] Sodium 133(L) 135 - 145 mmol/L Potassium, pl 4.5 3.3 - 4.9 mmol/L [facility] Comment:Hemolyzed; Potassium value may be falsely elevated by as much as 1.0 mmol/L. Suggest redraw and reanalysis. Chloride 101 97 - 110 mmol/L [facility] CO2 18(L) 22 - 32 mmol/L [facility] Anion gap 14 2 - 15 mmol/L [facility] BUN 30(H) 6 - 25 mg/dL [facility] Creatinine 1.73(H) 0.60 - 1.10 mg/dL [facility] Glucose 76 70 - 199 mg/dL [facility] Comment: Interpretive Data Fasting glucose >/= 126 [...] 2022. Calcium 9.8 8.5 - 10.3 mg/dL [facility] Bilirubin, total 2.3(H) 0.1 - 1.2 mg/dL [facility] Protein, pl 8.0 6.5 - 8.5 g/dL [facility] Albumin 3.5 3.5 - 5.0 g/dL [facility] Alk phos 109 40 - 130 Units/L [facility] ALT 25 7 - 45 Units/L [facility] AST See Comment 10 - 45 [facility] Comment:Credited; Hemolyzed Specimen Blood 09/30/2024 4:08 AM CDT 09/30/2024 4:40 AM CDT us Ethan Dominguez MD LAB BLOOD ORDERABLES Final Result [facility] [address] [facility] Department [place] [address] * ECG 12 lead (09/29/2024 10:29 AM CDT) Pathologist [facility] Ventricular Rate EKG/Min 83 BPM [facility] Atrial Rate 83 BPM [facility] OK-Interval (MSEC) 198 ms [facility] QRS-Interval (MSEC) 130 ms [facility] QT-Interval (MSEC) 446 ms [facility] QTc 524 ms [facility] R Beccaria 132 degrees [facility] T Beccaria 232 degrees [facility] Diagnosis Sinus rhythm with occasional atrial-paced complexes and Premature atrial complexes Right axis deviation Non-specific intra-ventric ular conduction block Minimal voltage criteria for LVH, may be normal variant ( [place] product ) T wave abnormality, consider inferior ischemia Abnormal ECG Confirmed by SARI FELIX M.D. ([id number]) on 09/29/2024 5:13:43 PM [facility] 09/29/2024 10:2 9 AM CDT 09/29/2024 5:13 PM CDT Ethan Dominguez MD ECG ORDERABLES Final Result [facility] * (ABNORMAL) eGFR (09/29/2024 6:42 AM CDT) [...] Dominguez MD LAB BLOOD ORDERABLES Final Result [facility] [address] [facility] [place] [address] * (ABNORMAL) Comprehensive metabolic panel (09/29/2024 6:42 AM CDT) Sodium 138 135 - 145 mmol/L Potassium, pl 3.8 3.3 - 4.9 mmol/L [facility] Chloride 105 97 - 110 mmol/L [facility] CO2 22 22 - 32 mmol/L [facility] Anion gap 11 2 - 15 mmol/L [facility] BUN 28(H) 6 - 25 mg/dL [facility] Creatinine 1.74(H) 0.60 - 1.10 mg/dL [facility] Glucose 79 70 - 199 mg/dL [facility] Comment: Interpretive Data Fasting glucose >/= 126 [...] 2022. Calcium 9.2 8.5 - 10.3 mg/dL [facility] Bilirubin, total 2.0(H) 0.1 - 1.2 mg/dL [facility] Protein, pl 6.3(L) 6.5 - 8.5 g/dL [facility] Albumin 3.0(L) 3.5 - 5.0 g/dL [facility] Alk phos 88 40 - 130 Units/L [facility] ALT 20 7 - 45 Units/L [facility] AST 33 10 - 45 Units/L [facility] Blood 09/29/2024 6:42 AM CDT 09/29/2024 7:18 AM CDT Ethan Dominguez MD LAB BLOOD ORDERABLES Final Result [facility] [address] [facility] Department [place] [address] * (ABNORMAL) eGFR (09/28/2024 10:37 AM CDT) Pathologist [facility] eGFR 36(L) >=60 mL/min/1. 73 m2 Comment: [...] BLOOD ORDERABLES Final Result Performing Organization Address [facility] Co de Phone Number [address] [place] [address] * Magnesium (09/28/2024 10:37 AM CDT) Pathologist [facility] Magnesium 1.9 1.4 - 2.5 mg/dL Blood 09/28/2024 10:3 7 AM CDT 09/28/2024 11:02 AM CDT Ethan Dominguez MD LAB BLOOD ORDERABLES Final Result Performing Organization Address [facility] Co de Phone Number [address] [address] * (ABNORMAL) Basic metabolic panel (09/28/2024 10:37 AM CDT) Pathologist [facility] Sodium 136 135 - 145 mmol/L Potassium, pl 4.2 3.3 - 4.9 mmol/L [facility] Comment:Hemolyzed; Potassium value may be falsely elevated by as much as 1.0 mmol/L. Suggest redraw and reanalysis. Chloride 101 97 - 110 mmol/L [facility] CO2 21(L) 22 - 32 mmol/L [facility] Anion gap 14 2 - 15 mmol/L [facility] BUN 25 6 - 25 mg/dL [facility] Creatinine 1.67(H) 0.60 - 1.10 mg/dL [facility] Glucose 132 70 - 199 mg/dL [facility] Comment: Interpretive Data Fasting glucose >/= 126 [...] 2022. Calcium 9.0 8.5 - 10.3 mg/dL [facility] Blood 09/28/2024 10:3 7 AM CDT 09/28/2024 11:02 AM CDT us Ethan Dominguez MD LAB BLOOD ORDERABLES Final Result [facility] [address] [facility] Department [place] [address] * ECG 12 lead (09/28/2024 9:46 AM CDT) Pathologist [facility] Ventricular Rate EKG/Min 78 BPM [facility] Atrial Rate 78 BPM [facility] OK-Interval (MSEC) 152 ms [facility] QRS-Interval (MSEC) 136 ms [facility] HEALTH QT-Interval (MSEC) 506 ms [facility] QTc 576 ms [facility] R Beccaria 120 degrees [facility] T Beccaria 238 degrees [facility] Diagnosis Sinus rhythm with occasional Premature ventricular complexes and Premature atrial complexes Non-specific intra-ventricula r conduction block T wave abnormality, consider inferolateral ischemia Abnormal ECG When compared with ECG of 27-SEP-2024 13:10, QRS axis Shifted right Confirmed by BRI TSAI M.D. ([id number]) on 10/01/2024 12:09:18 AM [facility] 09/28/2024 9:46 AM CDT 10/01/2024 12:09 AM CDT Ethan Dominguez MD ECG ORDERABLES Final Result [facility] * (ABNORMAL) eGFR (09/28/2024 8:40 AM CDT) [...] MD LAB BLOOD ORDERABLES Final Result [facility] [address] [facility] [place] [address] * (ABNORMAL) Differential, auto (09/28/2024 8:40 AM CDT) Neutrophil abs 1.79 1.50 - 6.50 K/cumm Imm gran abs 0.00 0.00 - 0.10 K/cumm [facility] Lymphocyte abs 1.87 0.80 - 3.30 K/cumm [facility] Monocyte abs 0.44 0.20 - 0.80 K/cumm [facility] Eosinophil abs 1.60(H) 0.00 - 0.50 K/cumm [facility] Basophil abs 0.08 0.00 - 0.10 K/cumm [facility] Neutrophil pct 30.9 % [facility] Comment: Interpretive Data Percent cell count reference ranges are not reported, since discordance with absolute values may lead to misinterpretation of CBC data. Current Interpretive Data was last revised on 2017. Imm gran pct 0.0 % [facility] Comment: Interpretive Data Percent cell count reference ranges are not reported, since discordance with absolute values may lead to misinterpretation of CBC data. Current Interpretive Data was last revised on 2017. Lymphocyte pct 32.4 % [facility] Comment: Interpretive Data Percent cell count reference ranges are not reported, since discordance with absolute values may lead to misinterpretation of CBC data. Current Interpretive Data was last revised on 2017. Monocyte pct 7.6 % [facility] Comment: Interpretive Data Percent cell count reference ranges are not reported, since discordance with absolute values may lead to misinterpretation of CBC data. Current Interpretive Data was last revised on 2017. Eosinophil pct 27.7 % [facility] Comment: Interpretive Data Percent cell count reference ranges are not reported, since discordance with absolute values may lead to misinterpretation of CBC data. Current Interpretive Data was last revised on 2017. Basophil pct 1.4 % [facility] Comment: Interpretive Data Percent cell count reference ranges are not reported, since discordance with absolute values may lead to misinterpretation of CBC data. Current Interpretive Data was last revised on 2017. Blood 09/28/2024 8:40 AM CDT 09/28/2024 8:55 AM CDT us Ethan Dominguez MD LAB BLOOD ORDERABLES Final Result [facility] [address] [facility] Department [place] [address] * (ABNORMAL) CBC with auto differential (09/28/2024 8:40 AM CDT) [facility] WBC 5.78 3.80 - 9.90 K/cumm Hgb 13.4 11.9 - 15.5 g/dL [facility] Hct 44.9 35.6 - 45.5 % [facility] Plt 128(L) 150 - 400 K/cumm [facility] MPV 9.5 9.1 - 12.3 fL [facility] RBC 4.55 3.90 - 5.20 M/cumm [facility] MCV 98.7(H) 81.3 - 96.4 fL [facility] MCH 29.5 27.1 - 33.3 pg [facility] MCHC 29.8(L) 32.3 - 35.7 g/dL [facility] RDW CV 15.2(H) 11.1 - 14.9 % [facility] RDW SD 54.2(H) 35.7 - 48.1 fL [facility] NRBC abs 0.00 0.00 - 0.01 K/cumm [facility] Blood 09/28/2024 8:40 AM CDT 09/28/2024 8:55 AM CDT us Ethan Dominguez MD LAB BLOOD ORDERABLES Final Result [address] Department [place] [address] * (ABNORMAL) Comprehensive metabolic panel (09/28/2024 8:40 AM CDT) [facility] Sodium 133(L) 135 - 145 mmol/L Potassium, pl 4.3 3.3 - 4.9 mmol/L [facility] Comment:Hemolyzed; Potassium value may be falsely elevated by as much as 1.0 mmol/L. Suggest redraw and reanalysis. Chloride 103 97 - 110 mmol/L [facility] CO2 16(L) 22 - 32 mmol/L [facility] Anion gap 14 2 - 15 mmol/L [facility] BUN 25 6 - 25 mg/dL [facility] Creatinine 1.66(H) 0.60 - 1.10 mg/dL [facility] Glucose 68(L) 70 - 199 mg/dL [facility] Comment: Interpretive Data Fasting glucose >/= 126 [...] 2022. Calcium 9.1 8.5 - 10.3 mg/dL [facility] Bilirubin, total 2.9(H) 0.1 - 1.2 mg/dL [facility] Protein, pl 6.4(L) 6.5 - 8.5 g/dL [facility] Albumin 2.8(L) 3.5 - 5.0 g/dL [facility] Alk phos 94 40 - 130 Units/L [facility] ALT 24 7 - 45 Units/L [facility] AST See Comment 10 - 45 [facility] Comment:Credited; Hemolyzed Specimen Blood 09/28/2024 8:40 AM CDT 09/28/2024 8:55 AM CDT Ethan Dominguez MD LAB BLOOD ORDERABLES Final Result Performing Organization Address [facility] Co de Phone Number [address] [place] [address] * Magnesium (09/27/2024 2:58 PM CDT) [facility] Magnesium 1.6 1.4 - 2.5 mg/dL Blood 09/27/2024 2:58 PM CDT 09/27/2024 3:02 PM CDT Ethan Dominguez MD LAB BLOOD ORDERABLES Final Result Performing Organization Address City/[facility] Co de Phone Number [place] [phone] [facility] [place] [address] * ECG 12 lead (09/27/2024 1:10 PM CDT) Ventricular Rate EKG/Min 86 BPM [facility] QRS-Interval (MSEC) 128 ms [facility] QT-Interval (MSEC) 462 ms [facility] QTc 552 ms [facility] R Beccaria -15 degrees [facility] T Beccaria 213 degrees [facility] Diagnosis Atrial fibrillation Non-specific intra-ventricula r conduction block Minimal voltage criteria for LVH, may be normal variant ( Brandon product ) T wave abnormality, consider inferolateral ischemia Abnormal ECG When compared with ECG of 26-SEP-2024 15:29, No significant change was found Confirmed by PIPO CALVO M.D. ([id number]) on 09/27/2024 2:57:43 PM [facility] 09/27/2024 1:10 PM CDT 09/27/2024 2:57 PM CDT us Ethan Dominguez MD ECG ORDERABLES Final Result [facility] * TRANSTHORACIC ECHO (TTE) COMPLETE W DOPPLER/CF W CONTRAST (09/27/2024 11:30 AM CDT) [facility] LV EF 10-15 % CONS SCIMAGE Anatomical Region Laterality Modality Ultrasound 09/27/2024 10:5 3 AM CDT Narrative 09/29/2024 5:27 PM CDT Transthoracic Echocardiographic Report Patient Name: VARUN SANABRIA D : 1970 (54y 3m) Gender: F Study Date: 09/27/2024 10:53:53 AM Ht(Inch): 61 Wt(Lb): 217.99 BSA: 2.06 Bilingual Office Assistant: Lanie Rivero RDCS Location: [id number] Order Provider: DU MORGAN Heart Rate: 84 BMI: 41.18 BP: 86 / 56 Ref Provider: DU MORGAN PROCEDURES: Echocardiographic Report: ([id number]) Transthoracic complete echo, 2D, spectral and tissue [...] [ 0.60 - 1.20 ] LVOT Peak Ngerito 0.61 m/s LVPWd 2D 1.17 cm [ [...] AM Ht(Inch): 61 Wt(Lb): 217.99 BSA: 2.06 Bilingual Office Assistant: Lanie Rivero RDCS Location: [id number] Order Provider:DU MORGAN Heart Rate: 84 BMI: 41.18 BP: 86 / 56 Ref Provider: DU MORGAN PROCEDURES: Echocardiographic Report: ([id number]) Transthoracic complete echo, 2D,spectral and tissue Doppler, [...] MD LAB BLOOD ORDERABLES Final R esult [facility] [address] [facility] Department [place] [address] * (ABNORMAL) CBC without differential (09/27/2024 4:45 AM CDT) WBC 7.47 3.80 - 9.90 K/cumm Hgb 13.4 11.9 - 15.5 g/dL [facility] Hct 44.3 35.6 - 45.5 % [facility] Plt 142(L) 150 - 400 K/cumm [facility] MPV 9.3 9.1 - 12.3 fL [facility] RBC 4.58 3.90 - 5.20 M/cumm [facility] MCV 96.7(H) 81.3 - 96.4 fL [facility] MCH 29.3 27.1 - 33.3 pg [facility] MCHC 30.2(L) 32.3 - 35.7 g/dL [facility] RDW CV 14.8 11.1 - 14.9 % [facility] RDW SD 51.5(H) 35.7 - 48.1 fL [facility] NRBC abs 0.00 0.00 - 0.01 K/cumm [facility] Blood 09/27/2024 4:45 AM CDT 09/27/2024 4:58 AM CDT Du Morgan MD LAB BLOOD ORDERABLES Final R esult Performing Organization Address [facility] Co de Phone Number [address] [place] [address] * Magnesium (09/27/2024 4:45 AM CDT) [facility] Magnesium 1.5 1.4 - 2.5 mg/dL Blood 09/27/2024 4:45 AM CDT 09/27/2024 4:58 AM CDT Du Morgan MD LAB BLOOD ORDERABLES Final R esult Performing Organization Address [facility] Co de Phone Number [address] [place] [address] * (ABNORMAL) Hepatic function panel (09/27/2024 4:45 AM CDT) [facility] Bilirubin, total 3.0(H) 0.1 - 1.2 mg/dL Bilirubin, direct 1.0(H) 0.1 - 0.3 mg/dL [facility] Protein, pl 6.6 6.5 - 8.5 g/dL [facility] Albumin 3.2(L) 3.5 - 5.0 g/dL [facility] Alk phos 93 40 - 130 Units/L [facility] ALT 26 7 - 45 Units/L [facility] AST 39 10 - 45 Units/L [facility] Blood 09/27/2024 4:45 AM CDT 09/27/2024 4:58 AM CDT Du Morgan MD LAB BLOOD ORDERABLES Final R esult Performing Organization Address [facility] Phone Number K[facility]INA [address] [facility] Department [place] [address] * (ABNORMAL) Basic metabolic panel (09/27/2024 4:45 AM CDT) Pathologist [facility] Sodium 137 135 - 145 mmol/L Potassium, pl 3.6 3.3 - 4.9 mmol/L [facility] Chloride 102 97 - 110 mmol/L [facility] CO2 23 22 - 32 mmol/L [facility] Anion gap 12 2 - 15 mmol/L [facility] BUN 20 6 - 25 mg/dL [facility] Creatinine 1.59(H) 0.60 - 1.10 mg/dL [facility] Glucose 74 70 - 199 mg/dL [facility] Comment: Interpretive Data Fasting glucose >/= 126 [...] 2022. Calcium 9.3 8.5 - 10.3 mg/dL [facility] Blood 09/27/2024 4:45 AM CDT 09/27/2024 4:58 AM CDT Du Morgan MD LAB BLOOD ORDERABLES Final R esult Performing Organization Address [facility]/ZIP Co de Phone Number KAT[place] [facility]0 [facility] [place] [address] * (ABNORMAL) Troponin T high-sensitivity 6-hour (09/26/2024 [...] BLOOD ORDERABLES Final Result Performing Organization Address [facility] de Phone Number [place] [facility]0 [facility] Department [place] [employer] [place] [address] * Blood culture Blood Blood (09/26/2024 8:40 PM CDT) Report Final Report: No growth Comment:Testing performed by : [facility], [address] [facility] [place] [address] Blood (Blood) 09/26/2024 8:4 0 PM CDT 09/27/2024 4:50 AM CDT Narrative [facility] - 10/01/[facility] 7:00 AM CDT Collection->Peripheral 1. [...] performance characteristics have been verified by the [facility] Microbiology Laboratory. For questions about this culture, contact the Microbiology Laboratory at [phone]. Interpretive data was last revised on 24. Angela Kirk MD LAB MICROBIOLOGY - GENERAL ORDERABLES Final Result [facility] [place] [address] [facility] Department [place] [address] * Blood culture Blood Blood (09/26/2024 8:39 PM CDT) Report Final Report: No growth Comment:Testing performed by : [facility], [address] [facility] [place]., [address] Blood (Blood) 09/26/2024 8:3 9 PM CDT 09/27/2024 4:50 AM CDT [facility] K[facility]INA [place] - 10/01/2024 7:00 AM CDT [...] performance characteristics have been verified by the [facility] Microbiology Laboratory. For questions about this culture, contact the Microbiology Laboratory at [phone]. Interpretive data was last revised on 24. Angela Kirk MD LAB MICROBIOLOGY - GENERAL ORDERABLES Final Result Performing Organization Address City/[facility]/ZIP Co de Phone Number [address] [place] [employer] [address] * (ABNORMAL) Urinalysis reflex to microscopic and culture Urine (09/26/2024 6:27 PM CDT) Color, ur Yellow Yellow Clarity, ur Turbid(A) Clear [facility] Specific gravity, ur 1.013 1.003 - 1.030 [facility] pH, urine 5.5 [facility] Comment: Interpretive Data U rine pH is affected by diet, medications, systemic acid-base disturbances, and renal tubular function. pH may affect urinary stone formation. For example, urine pH below 6.0 may help reduce the tendency for calcium phosphate stones and pH greater than 6.0 may reduce the tendency for uric acid stone formation. Source: [facility] Current Interpretive Data was last revised on 2017 Protein, ur ql 2+(A) Negative [facility] Glucose, ur ql Negative Negative [facility] Ketones, ur Negative Negative [facility] Bilirubin, ur Negative Negative [facility] Blood, ur 2+(A) Negative [facility] Urobilinogen, ur 4.0(A) <2.0 mg/dL [facility] Nitrite, ur Negative Negative [facility] Leukocyte esterase, ur 4+(A) Negative [facility] UA reflex comment Reflex to microscopic UA will be performed. [facility] Urine 09/26/2024 6:27 PM CDT 09/26/2024 6:31 PM CDT Deacon BANKS LAB MICROBIOLOGY - GENERAL O RDERABLES Final Result Performing Organization Address City/[facility]/ZIP Co de Phone Number [facility] [address] [facility] [employer] [place] [address] * (ABNORMAL) Urinalysis, microscopic only (09/26/2024 6:27 PM CDT) WBC, ur >50(A) 0 - 5 /HPF RBC, ur 11-20(A) 0 - 2 /HPF [facility] Epithelial cells, squamous, ur 1-5 0 - 5 /HPF [facility] Bacteria, ur 4+(A) [facility] Culture Reflex Comment Reflex to urine culture will be performed. [facility] Urine 09/26/2024 6:27 PM CDT 09/26/2024 6:31 PM CDT Deacon BANKS LAB URINE ORDERABLES Final R esult [facility] [address] [facility] [place] [address] * (ABNORMAL) Urine culture Urine (09/26/2024 6:27 PM CDT) Report Final Report: Greater than or equal to 100,000 colonies/mL of Escherichia coli Plus growth of clinically insignificant bacterial guzman. (.) Comment:Testing performed by : [facility], [address] [facility] [place]., [address] Organism ESCHERICHIA COLI [facility] Organism PLUS GROWTH OF CLINICALLY INSIGNIFICANT GUZMAN. [facility] Urine 09/26/2024 6:27 PM CDT 09/26/2024 9:46 PM CDT Narrative [facility] - 09/28/2024 4:58 PM CDT Urine culture reflexed based upon urinalysis results. Testing performed by [facility] Microbiology Laboratory ([phone]) Organism Antibiotic Method Susceptibility Escherichia coli Ampicillin [...] O RDERABLES Final Result Performing Organization Address [facility] Co de Phone Number KATALINA [address] [address] * (ABNORMAL) Troponin T high-sensitivity 2-hour (09/26/2024 5:45 PM CDT) Trop T hs 46(H) <=14 ng/L Comment: Interpretive Data For further hscTnT resources including the diagnostic algorithm and an aid in interpretation, copy and paste this link: https://nrl.testcatalog.org/show/hsTrop Current Interpretive Data last revised 2020. Trop T hs delta -2 ng/L [facility] Trop T hs interp Insignificant [facility] Blood 09/26/2024 5:45 PM CDT 09/26/2024 5:47 PM CDT Sailaja BANKS LAB BLOOD ORDERABLES Final Result Performing Organization Address [facility] Co de Phone Number KATALINA [address] [address] * XR Chest 1 Vw Portable (if [...] was low. Pt then drove back to [facility] where they checked her O2 and pt [...] by Fredy Adler M.D. T: Report ID: [id number] Reading Location: [place] [address] Procedure Note Fredy Adler MD - 09/26/2024 EXAM DESCRIPTION: XR CHEST 1 VIEW REASON FOR STUDY: Shortness of breath BIBEMS from [facility]. Pt states to increased SOB, weakness, bilateral lower extremity swelling for the last week. States totaking medication as rx. Pt went to PCP today and was told her O2 level waslow. Pt then drove back to [facility] where they checked her O2 and pt [...] Fredy Adler M.D. KH T: Report ID: [id number] Reading Location: [place] [address] Angela Kirk MD IMG XR PROCEDURES Final Res ult * ECG 12 lead (09/26/2024 3:29 PM CDT) Pathologist [facility] Ventricular Rate EKG/Min 112 BPM [facility] Atrial Rate 122 BPM [facility] QRS-Interval (MSEC) 134 ms [facility] QT-Interval (MSEC) 306 ms [facility] QTc 417 ms [facility] R Beccaria -16 degrees [facility] T Beccaria 196 degrees [facility] Diagnosis Atrial fibrillation with rapid ventricular response with premature ventricular or aberrantly conducted complexes Non-specific intra-ventricul ar conduction block T wave abnormality, consider inferior ischemia Abnormal ECG When compared with ECG of 06-OCT-2023 15:19, Atrial fibrillation has replaced Sinus rhythm Confirmed by PIPO CALVO M.D. ([id number]) on 09/27/2024 12:34:53 PM [facility] 09/26/2024 3:29 PM CDT 09/27/2024 12:34 PM CDT us Angela Kirk MD ECG ORDERABLES Final Resul t [facility] * (ABNORMAL) Troponin T high-sensitivity series (baseline, 2hr, 4hr, 6hr) (09/26/2024 3:15 PM CDT) Pathologist [facility] Trop T hs 48(H) <=14 ng/L Comment: Interpretive Data For further hscTnT resources including the diagnostic algorithm and an aid in interpretation, copy and paste this link: https://nrl.testcatalog.org/show/hsTrop Current Interpretive Data last revised 2020. Blood 09/26/2024 3:15 PM CDT 09/26/2024 3:23 PM CDT Angela Kirk MD LAB BLOOD ORDERABLES Final Result Performing Organization Address City/State/[facility] Co de Phone Number KAT[place]INA [facility] [place] [address] * Influenza A/B, RSV, and COVID-19 PCR Nasopharyngeal (09/26/2024 3:15 PM CDT) Pathologist [facility] COVID-19 RNA Negative Negative Influenza A RNA Negative Negative [facility] Influenza B RNA Negative Negative [facility] RSV RNA Negative Negative [facility] Comment: Interpretive data: Testing performed by [facility]. This test is performed using the [employer] Xpert Xpress CoV-2/Flu/RSV plus assay. This is a multiplex, real-time reverse transcriptase PCR assay intended for the qualitative detection of nucleic acid from SARS-CoV-2, influenza A, influenza B, and respiratory syncytial virus. This assay has been cleared by the [place] Food and Drug administration. The performance characteristics have been verified by the [facility]. Results must be considered in the clinical context, and a negative result does not rule out infection. Interpretive Data last revised 2023 Nasopharyngeal 09/26/2024 3: 15 PM CDT 09/26/2024 3:23 PM CDT Narrative [facility] - 09/26/2024 4:03 PM CDT Is the Patient experiencing symptoms consistent with COVID?->No Angela Kirk MD LAB MICROBIOLOGY - GENERAL ORDERABLES Final Result Performing Organization Address [facility] Co de Phone Number [place] [phone] [place] [address] * (ABNORMAL) eGFR (09/26/2024 3:15 PM CDT) [facility] eGFR 36(L) >=60 mL/min/1. 73 m2 Comment: [...] Kirk MD LAB BLOOD ORDERABLES Final Result [place] [id number] [facility] [place] [address] * (ABNORMAL) Differential, auto (09/26/2024 3:15 PM CDT) Pathologist [facility] Neutrophil abs 4.26 1.50 - 6.50 K/cumm Imm gran abs 0.02 0.00 - 0.10 K/cumm [facility] Lymphocyte abs 1.56 0.80 - 3.30 K/cumm [facility] Monocyte abs 0.48 0.20 - 0.80 K/cumm [facility] Eosinophil abs 0.76(H) 0.00 - 0.50 K/cumm [facility] Basophil abs 0.10 0.00 - 0.10 K/cumm [facility] Neutrophil pct 59.3 % [facility] Comment: Interpretive Data Percent cell count reference ranges are not reported, since discordance with absolute values may lead to misinterpretation of CBC data. Current Interpretive Data was last revised on 2017. Imm gran pct 0.3 % [facility] Comment: Interpretive Data Percent cell count reference ranges are not reported, since discordance with absolute values may lead to misinterpretation of CBC data. Current Interpretive Data was last revised on 2017. Lymphocyte pct 21.7 % [facility] Comment: Interpretive Data Percent cell count reference ranges are not reported, since discordance with absolute values may lead to misinterpretation of CBC data. Current Interpretive Data was last revised on 2017. Monocyte pct 6.7 % [facility] Comment: Interpretive Data Percent cell count reference ranges are not reported, since discordance with absolute values may lead to misinterpretation of CBC data. Current Interpretive Data was last revised on 2017. Eosinophil pct 10.6 % [facility] Comment: Interpretive Data Percent cell count reference ranges are not reported, since discordance with absolute values may lead to misinterpretation of CBC data. Current Interpretive Data was last revised on 2017. Basophil pct 1.4 % [facility] Comment: Interpretive Data Percent cell count reference ranges are not reported, since discordance with absolute values may lead to misinterpretation of CBC data. Current Interpretive Data was last revised on 2017. Blood 09/26/2024 3:15 PM CDT 09/26/2024 3:23 PM CDT Angela Kirk MD LAB BLOOD ORDERABLES Final Result [place] [address] [facility] [place] [address] * (ABNORMAL) Pro B-type natriuretic peptide (09/26/2024 [...] BANKS LAB BLOOD ORDERABLES Final R esult [place] [id number] [facility] [facility] [place] [address] * (ABNORMAL) CBC with auto differential (09/26/2024 3:15 PM CDT) WBC 7.18 3.80 - 9.90 K/cumm Hgb 14.4 11.9 - 15.5 g/dL [facility] Hct 45.7(H) 35.6 - 45.5 % [facility] Plt 154 150 - 400 K/cumm [facility] MPV 9.3 9.1 - 12.3 fL [facility] RBC 4.89 3.90 - 5.20 M/cumm [facility] MCV 93.5 81.3 - 96.4 fL [facility] MCH 29.4 27.1 - 33.3 pg [facility] MCHC 31.5(L) 32.3 - 35.7 g/dL [facility] RDW CV 14.6 11.1 - 14.9 % [facility] RDW SD 49.4(H) 35.7 - 48.1 fL [facility] NRBC abs 0.00 0.00 - 0.01 K/cumm [facility] Blood 09/26/2024 3:15 PM CDT 09/26/2024 3:23 PM CDT Angela Kirk MD LAB BLOOD ORDERABLES Final Result [facility] [address] [facility] Department [place] [address] * (ABNORMAL) Comprehensive metabolic panel (09/26/2024 3:15 PM CDT) Sodium 137 135 - 145 mmol/L Potassium, pl 3.5 3.3 - 4.9 mmol/L [facility] Chloride 99 97 - 110 mmol/L [facility] CO2 23 22 - 32 mmol/L [facility] Anion gap 15 2 - 15 mmol/L [facility] BUN 20 6 - 25 mg/dL [facility] Creatinine 1.66(H) 0.60 - 1.10 mg/dL [facility] Glucose 115 70 - 199 mg/dL [facility] Comment: Interpretive Data Fasting glucose >/= 126 [...] 2022. Calcium 9.6 8.5 - 10.3 mg/dL [facility] Bilirubin, total 3.0(H) 0.1 - 1.2 mg/dL [facility] Protein, pl 7.6 6.5 - 8.5 g/dL [facility] Albumin 3.7 3.5 - 5.0 g/dL [facility] Alk phos 118 40 - 130 Units/L [facility] ALT 35 7 - 45 Units/L [facility] AST 46(H) 10 - 45 Units/L [facility] Blood 09/26/2024 3:15 PM CDT 09/26/2024 3:23 PM CDT us Angela Kirk MD LAB BLOOD ORDERABLES Final Result [facility] [address] [facility] [place] [address] from Last 3 Months Insurance [facility] Advance Directives For more information, please contact: [phone] Documents on File Type Date Recorded Patient Cardiology Nurse Expl anation ADVANCE DIRECTIVE 02/18/2022 2:53 PM Power of Wet Suit [employer] * Full Code (Latest Code Status on File) Date Activated Date Inactivated Comments 09/26/2024 11:29 PM 10/02/2024 7:33 PM * Full Code Date Activated Date Inactivated Comments 10/06/2023 9:22 PM 10/11/2023 6:59 PM * Full Code Date Activated Date Inactivated Comments 09/14/2022 3:55 PM 09/15/2022 3:31 PM * Full Code Date Activated Date Inactivated Comments 02/18/2022 3:21 AM 02/24/2022 12:30 AM Care Teams Speech Lang Path Therapist Relationship Specialty Start Date End Date Soumya Araujo MD PCP - General Aircraft Load Controller 10/05/22 Sultan Louis Cao MD [address] [place] [address] Consulting Physician Cardiovascular Disease 10/02/24
--- OUTSIDE RECORDS SUMMARY | 2024-11-25 23:20 | XMS_ITS | CONTINUITY OF CARE DOCUMENT ---
Author Name juan martinez Address Unknown Organization [facility] Address [address] [place] [address] Phone [phone] Care Team Providers Care Ultrasonic Tester Name Role Phone Ria CHAVEZ, Wyatt Membreno Unavailable [phone] RADHA BENNETT MD Unavailable RADHA BENNETT MD Unavailable [phone] INSURANCE PROVIDERS Payer name Policy type / Coverage type [place] red libertarian ID [employer] (2) Medicaid [id number]
[2024-11-25] MEDS: HYDROcodone/acetaminophen (*CRX) 7.5-325 MG TABLET 1 TAB PO (23:24)
== END 2024-11-26 07:24 | disposition home or self-care (01) ==
LOC: ANHED 23:18
PROVIDERS: Emergency Provider Emergency Medicine; PCP Family Medicine
DX: M54.9 Dorsalgia, unspecified (principal); G89.29 Other chronic pain; J45.909 Unspecified asthma, uncomplicated; E55.9 Vitamin D deficiency, unspecified; E78.5 Hyperlipidemia, unspecified; K21.9 Gastro-esophageal reflux disease without esophagitis; M19.90 Unspecified osteoarthritis, unspecified site; Z96.1 Presence of intraocular lens; Z98.42 Cataract extraction status, left eye; Z98.41 Cataract extraction status, right eye; Z79.899 Other long term (current) drug therapy
CPT/HCPCS: 99283; A9270

== ENCOUNTER 2024-12-04 20:04 | Inpatient (IN) | payer OTHER, SELFPAY ==
[2024-12-04] VITALS (10 sets, daily range): BP systolic 82–108; BP diastolic 38–78; PULSE 103–133; RESP 18–28; TEMP 36.4–37; O2SAT 99–100
--- NOTE | ~2024-12-04 | XR_ITS ---
Portable chest x-ray Comparison: 12/10/2024 Clinical History: Pulmonary edema Findings: Right-sided PICC line in place. There is mild perihilar haziness bilaterally. Cardiomedia stinal silhouette is stable, with pacemaker device. Bones and soft tissues are unremarkable. Impression: Probable mild central pulmonary edema. Stable cardiomegaly with pacemaker device. Right-sided PICC line. Reviewed, dictated and finalized at location . Impression: Probable mild central pulmonary edema. Stable cardiomegaly with pacemaker device. Right-sided PICC line.
--- NOTE | ~2024-12-04 | CT_ITS ---
CLINICAL INDICATION: Hypoxia COMPARISON: reference is made to a plain film evaluation of the chest dated 12/04/2024. TECHNIQUE: Multiple contiguous axial images of the chest was performed without the administration of intravenous contrast. This CT examination was performed utilizing dose reduction techniques. DLP: 433 mGy-cm FINDINGS/OBSERVATIONS: LUNG: Patchy groundglass opacification within the bilateral pulmonary sherron, findings consistent with pulmon juan edema. Small right-sided pleural effusion. The remainder of the lungs are clear. HEART: The heart is enlarged, with a small pericardial effusion. The main pulmonary artery is enlarged, suggesting pulmonary hypertension. MEDIASTINUM: Limited evaluation without intravenous contrast. SOFT TISSUES OF THE CHEST: Trace anasarca. BONES OF THE CHEST: No acute fracture. No lytic or blastic lesions are identified. UPPER ABDOMEN: Perihepatic free fluid, consistent with recent ultrasound. Perisplenic free fluid is also noted. IMPRESSION: Findings consistent with pulmonary edema with a small right-sided pleural effusion. Additional findings worrisome for pulmonary hypertension, as detailed above. Trace anasarca. Intra-abdominal ascites Reviewed, dictated and finalized at location A. IMPRESSION: Findings consistent with pulmonary edema with a small right-sided pleural effus ion. Additional findings worrisome for pulmonary hypertension, as detailed above. Trace anasarca. Intra-abdominal ascites
--- NOTE | ~2024-12-04 | US_ITS ---
EXAM: ABDOMEN ULTRASOUND HISTORY: elevated LFTs and hyperbilirubinemia COMPARISON: Reference is made to a CT examination of the abdomen and pelvis performed in May FINDINGS: LIVER: The liver is unremarkable in echogenicity and size. The portal vein is patent, demonstrating hepatopedal flow. The contour of the liver surface is smooth. Trace perihepatic ascites. GALLBLADDER: Multiple stones are identified within the gallbladder which demonstrates thickened campbell (without hyperemia) and trace pericholecystic fluid. BILE DUCTS: Common bile duct measures 2.2mm. Prominence of the intrahepatic biliary ducts is present. PANCREAS: Limited evaluation of the pancreas secondary to overlying bowel gas IMPRESSION: Cholelithiasis with gallbladder wall thickening and trace pericholecystic fluid. Trace perihepatic ascites Reviewed, dictated and finalized at location A. IMPRESSION: Cholelithiasis with gallbladder wall thickening and trace pericholecystic fluid . Trace perihepatic ascites
--- NOTE | ~2024-12-04 | XR_ITS ---
XR chest PICC line Ordering provider: Erickson Foote MD History: 54 years Female with . picc insertion . Comparison: December 04, 2024 FINDINGS: MEDIASTINUM: The cardiac silhouette is moderately enlarged. Left bipolar pacemaker. Right PICC line with the tip overlying the right atrium. LUNGS: No infiltrates, effusions or pneumothorax. OTHER: No free air under the diaphragm. IMPRESSION: No acute cardiopulmonary pathology. Reviewed, dictated and finalized at location A.
--- NOTE | ~2024-12-04 | US_ITS ---
BILATERAL LOWER EXTREMITY VENOUS ULTRASOUND Ordering provider: Erickson Foote History: . Swelling . Comparison: None. FINDINGS: RIGHT LOWER EXTREMITY VEINS: --COMMON FEMORAL: Patent and free of thrombus. Normal compressibility, phasic flow and augmentation. --PROXIMAL SUPERFICIAL FEMORAL: Patent and free of thrombus. Normal compressibility, phasic flow and augmentation. --DISTAL SUPERFICIAL FEMORAL: Patent and free of thrombus. Normal compressibility, phasic flow and au gmentation. --POPLITEAL: Patent and free of thrombus. Normal compressibility, phasic flow and augmentation. --POSTERIOR TIBIAL: Patent and free of thrombus. Normal compressibility, phasic flow and augmentation . LEFT LOWER EXTREMITY VEINS: --COMMON FEMORAL: Patent and free of thrombus. Normal compressibility, phasic flow and augmentation. --PROXIMAL SUPERFICIAL FEMORAL: Patent and free of thrombus. Normal compressibility, phasic flow and augmentation. --DISTAL SUPERFICIAL FEMORAL: Patent and free of thrombus. Normal compressibility, phasic flow and au gmentation. --POPLITEAL: Patent and free of thrombus. Normal compressibility, phasic flow and augmentation. --POSTERIOR TIBIAL: Patent and free of thrombus. Normal compressibility, phasic flow and augmentation . IMPRESSION: Negative bilateral lower extremity venous US. No deep vein thrombosis. Reviewed, dictated and finalized at location A.
--- NOTE | ~2024-12-04 | XR_ITS ---
XR chest 1V portable Ordering provider: Glenn Piña History: 54 years Female with . pulmonary edema . Comparison: December 05, 2024 FINDINGS: MEDIASTINUM: The cardiac silhouette is moderately enlarged. Left Bipolar pacemaker. Congestive sherron. LUNGS: No effusions or pneumothorax. Bilateral alveolar and interstitial opacification. OTHER: No free air under the diaphragm. IMPRESSION: Cardiomegaly with cardiac decompensation and pulmonary edema. Superimposed pneumonia cannot be exclud ed. Reviewed, dictated and finalized at location A. IMPRESSION: Cardiomegaly with cardiac decompensation and pulmonary edema. Superimposed pneu monia cannot be excluded.
--- NOTE | ~2024-12-04 | US_ITS ---
EXAM: RENAL ULTRASOUND HISTORY: SANDRA COMPARISON: None FINDINGS: RIGHT KIDNEY: 11.0 x 3.2 x 5.4 cm. The parenchyma of the right kidney is increased in echogenicity. No hydronephrosis or bulky renal calculi. LEFT KIDNEY: 9.2 x 5.8 x 5.3 cm No hydronephrosis or renal calculi. The parenchyma of the left kidney is increased in echogenicity. BLADDER: Decompressed with a Betts catheter, limiting its evaluation. Trace perihepatic free fluid. IMPRESSION: No hydronephrosis or renal calculi. Findings suggesting medical renal disease. Reviewed, dictated and finalized at location A.
--- NOTE | ~2024-12-04 | XR_ITS ---
CHEST RADIOGRAPH, PA AND LATERAL CLINICAL HISTORY: sob . COMPARISON: 11/23/2024 TECHNIQUE: PA and lateral views of the chest. FINDINGS The left mid lung is partially obscured due to pacemaker/AICD generator. Wires project over the right atrium and right ventricle. Air bronchograms are present within the left superior hilum for which an early infiltrate is suspecte d. The remainder of the cardiomediastinal silhouette is otherwise unremarkable. The remainder of the lungs are clear IMPRESSION: Air bronchograms within the left superior hilum for which an early infiltrate is suspected. Reviewed, dictated and finalized at location A. IMPRESSION: Air bronchograms within the left superior hilum for which an early infiltrate i s suspected.
--- NOTE | ~2024-12-04 | XR_ITS ---
Portable chest x-ray Comparison: 12/11/2024 Clinical History: Pulmonary congestion Findings: Right-sided PICC line in place. Probable mild pulmonary edema pattern. Cardiomediastinal silhouette is stable, with pacemaker device. Bones and soft tissues are unremarkable. Impression: Probable mild pulmonary edema pattern. Right-sided PICC line. Stable cardiomegaly with pacemaker device. Reviewed, dictated and finalized at [facility]. Impression: Probable mild pulmonary edema pattern. Right-sided PICC line. Stable cardiomegaly with pacemaker device.
--- NOTE | 2024-12-04 20:08 | ECG_ITS ---
Test Date: 2024-12-04 20:13:31 Measurements Intervals [place] Rate: 135 P: 156 LA: 184 QRS: 107 QRSD: 138 T: 180 QT: 338 QTc: 507 Interpretive Statements ATRIAL FLUTTER/TACHYCARDIA WITH RAPID VENTRICULAR RESPONSE ELECTRONIC VENTRICULAR PACEMAKER COMPLEXES AND A FUSION COMPLEX RIGHT AXIS DEVIATION LEFT BUNDLE BRANCH BLOCK BASELINE ARTIFACT- I, III, AVR, AVL, AVF, V4-V6 ABNORMAL ECG Compared to ECG 11/23/2024 07:47:42 SINUS RHYTHM NO LONGER PRESENT Electronically Signed On 12-04-2024 21:10:39 CDT by Demario Pastrana D.O.
[2024-12-04 20:26] LABS: Basophils Percent Auto 0.5 % (0.2-1.2); Eosinophils Absolute Auto 0.2 K/mm3 (0-0.3); Eosinophils Percent Auto 3.1 % (0-4.4); Hematocrit 44.6 % (37.0-47.0); Hemoglobin 14.2 g/dL (12.0-15.0); Immature Granulocyte Absolute 0.02 K/mm3 (0.00-0.031); Immature Granulocyte Percent A 0.4 % (0-0.5); Lymphocytes Absolute Auto 1.51 K/mm3 (0.9-3.2); Lymphocytes Percent Auto 27.4 % (18.3-44.2); Mean Corpuscular HGB Conc 31.8 g/dl (32-36); Mean Corpuscular Hemoglobin 28.5 pg (26-34); Mean Corpuscular Volume 89.6 fl (80-100); Mean Platelet Volume 8.3 fl (7.4-10.4); Monocytes Absolute Auto 0.5 K/mm3 (0.1-0.6); Monocytes Percent Auto 8.5 % (2.6-8.5); Neutrophils Absolute Auto 3.3 K/mm3 (1.3-6.7); Neutrophils Percent Auto 60.1 % (45.5-73.1); Platelet Count Result 199 k/mm3 (150-375); Red Blood Count 4.98 M/mm3 (4.2-5.4); Red Cell Distribution Width 15.9 % (11.5-14.5); White Blood Count 5.5 K/mm3 (4.5-10.0)
[2024-12-04 20:33] LABS: Alanine Aminotransferase 28 U/L (6-35); Albumin Level 3.7 g/dL (3.5-5.1); Alkaline Phosphatase 105 U/L (38-126); Anion Gap 14 mmol/L (4-12); Aspartate Amino Transferase 54 U/L (14-36); Bilirubin,Total 2.5 mg/dL (0.2-1.3); Blood Urea Nitrogen 36 mg/dL (7-17); Carbon Dioxide 18 mmol/L (22-30); Chloride 95 mmol/L (98-107); Estimated Glomerular Filt Rate 19; Glucose 113 mg/dL (65-110); Potassium 3.4 mmol/L (3.4-5.0); Sodium 127 mmol/L (137-145); Total Protein 7.6 g/dL (6.3-8.2)
[2024-12-04 20:37] LABS: INR 1.8; Prothrombin Time 20.4 Seconds (11.1-14.7)
[2024-12-04 20:38] LABS: Partial Thromboplastin Time 38.4 Seconds (22.3-36.8)
[2024-12-04 20:47] LABS: NT Pro B Type Natriuretic Pept > 30000 pg/mL (19.9-100)
--- OUTSIDE RECORDS SUMMARY | 2024-12-04 21:23 | XMS_ITS | Clinical Summary ---
Author Organization [facility] Address [address] [place] [address] Care Team Providers Care Paramedic Instructor Name Role Phone Unavailable Primary Care Provider Unavailabl e Source Comments [facility] [employer],non-owned Affiliates and Associated Physician Practices is amultiple site organization consisting of ambulatory clinics and hospital sitesin [place], [place], [place] and [place]. This disclosure is being madepursuant to the Care Everywhere program and may not contain all information available regarding this patient. Last updated 18.[facility] [employer] Social History Tobacco Use Types Packs/Day Years [...] patient's age to complete this topic Insurance [facility]
--- OUTSIDE RECORDS SUMMARY | 2024-12-04 21:23 | XMS_ITS | CONTINUITY OF CARE DOCUMENT ---
Author Name juan martinez Address Unknown Organization [facility] Address [address] [place] [address] Phone [phone] Care Team Providers Care Associate Loan Officer Name Role Phone Ria CHAVEZ, Wyatt Membreno Unavailable [phone] RADHA BENNETT MD Unavailable RADHA BENNETT MD Unavailable [phone] INSURANCE PROVIDERS Payer name Policy type / Coverage type [place] red green party ID [employer] MED[employer] (2) Medicaid [id number]
--- OUTSIDE RECORDS SUMMARY | 2024-12-04 21:23 | XMS_ITS | Clinical Summary ---
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 Name Role Phone Soumya Araujo MD Primary Care Provider [phone] Sultan Louis Cao MD Unavailable [phone] Allergies Active Allergy Reactions Criticality Noted Date [...] total) by mouth daily 4 Active vit R-R-tanfpb-zinc -lutein 226-90-0.8-5 mg capsule Take 1 capsule [...] & Plan (10/02/2024 3:08 PM CDT): Consulting fine arts instructor felt this was related to the patient's [...] & Plan (10/01/2024 2:22 PM CDT): Consulting fine arts instructor felt this was related to the patient's [...] 11/17/2023 senior care current use of anticoagulant High risk medication use 11/17/2023 ICD (implantable cardioverter-defibrillator) in place 11/17/2023 Overview (07/23/2024): [employer] 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[place], NICM [...] Care Team Description 11/19/2024 Home Care Visit [address] [place] [address] Rosangela Chauhan, PT PT NON ADMIT 11/19/2024 Travel 11/19/[address] [place] [address] Rosette Mckeon RN 11/19/[address] [place] [address] Rosette Mckeon, RN 11/19/[address] [place] [address] Rosette Mckeon, ADELINA 11/19/[address] [place] [address] Rosette Mckeon, RN 11/19/[address] [place] [address] Rosette Mckeon RN 10/07/2024 TCC Subsequent Outreach [facility] [address] [place] [address] Jorge Jack RN 09/27/2024 TCC Initial Eligibility Review [facility] [address] [place] [address] Jorge Jack RN 09/26/2024 5:33 PM CDT - 10/02/2024 3:15 PM CDT Hospital Encounter [address] [address] Angela Kirk MD Georgiyev, Sergiy, MD Saturno Arias, Dany Jose, MD Mustafa, Saim, DO Winston, Jared Todd, MD Acute on chronic congestive heart failure, unspecified heart failure type (HCC) (Primary Dx); Acute UTI Discharge Disposition: Discharge to penitentiary facility from Last 3 Months Immunizations Immunization [...] e alcohol) [facility] Utilities Answer Date Recorded In the past 12 months has [employer] electric, gas, oil, or water [employer] threatened to shut off services in your home? No 09/27/2024 Social Connection and Isolation Panel [NHANES] A nswer Date Recorded In a typical week, how many times do you talk on the phone with family, friends, or neighbors? Never 09/27/2024 How often do you get together with friends or re latives? Never 09/27/2024 How often do you attend orthodox or religion serv ices? Never 09/27/2024 Do you belong to any clubs o r organizations such as orthodox groups, unions, fraternal or athletic groups, or [...] place to sleep or slept in a halfway (including now)? Patient declined 10/09/2023 Housing Stability [...] any time in the past 12 [facility], were you homeless or living in a halfway (including now)? No 09/27/2024 Personal Safety Answer Date Recorded Have you ever been in or are you currently in a harmful physical or emotional relationship or is someone making you feel afraid or unsafe? 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 Gender Identity Female 01/10/2024 9:21 AM CDT [...] history exists Medical Devices Implanted Type Area Jordan Worker Device Identifier Shelf Expiration Date Model / Serial / Lot [employer] Vascade Mvp 6-12fr Venous Closure [id number] - [id number] - [id number] Implanted:Qty: 1 on 09/14/2022 by Parminder Meadows MD at [facility] Collagen Right: Femoral [employer] 04/25/2024 800-612C -10U / [id number] 109A / [id number] 109A [employer] Vascade Mvp 6-12fr Venous Closure [id number] - [id number] - [id number] Implanted:Qty: 1 on 09/14/2022 by Parminder Meadows MD at [facility] Collagen Right: Femoral [employer] 05/30/2024 800-612C -10U / [id number] 212C / [id number] 212C [employer] Vascade Mvp 6-12fr Venous Closure [id number] - [id number] - [id number] Implanted:Qty: 1 on 09/14/2022 by Parminder Meadows MD at [facility] Collagen Left: Femoral [employer] 05/30/2024 800-612C -10U / [id number] 212C / [id number] 212C [employer] Vascade Mvp 6-12fr Venous Closure [id number] - [id number] - [id number] Implanted:Qty: 1 on 09/14/2022 by Parminder Meadows MD at [facility] Collagen Left: Femoral [employer] 05/30/2024 800-612C -10U / [id number] 212C / [id number] 212C [employer] Kermit Angio-Seal Vip 6fr Closere Device [id number] - [id number] Implanted:Qty: 1 on 02/18/2022 by Duke Armenta MD at [facility] [employer] Kermit 11/16/2022 [id number] / / [id number] [employer] Kermit Dynagen Enduralife Easyview Hf Perspectiv 5.37x7.68cm 2 Chamber D152 - [id number] - [id number] Implanted:Qty: 1 on 02/22/2022 by Jordy Patton MD at [facility] [employer] [facility] [id number] 09/23/2023 D152 / [id number] / [place] [employer] Kermit [place] 4-Front 59cm Active Fixation Lead Icd 0672 - [id number] - [id number] Implanted:Qty: 1 on 02/22/2022 by Jordy Patton MD at [facility] [employer] [facility] [id number] 09/23/2023 0672 / [id number] / needmade Lead 7841 Endocardial Pacing Mr Is-1 Bipolar Connection 7841 - [id number] - [id number] Implanted:Qty: 1 on 02/22/2022 by Jordy Patton MD at [facility] [employer] [facility] [id number] 02/04/2024 7841 / [id number] / Med[employer] Inc Tyrx Absorbable Antibacterial Envelope-Large 3.3x2.9in [id number] - [id number] Implanted:Qty: 1 on 02/22/2022 by Jordy Patton MD at [facility] [employer] [id number] / / Procedures Procedure Name Priority Date/Time [...] Final Result Performing Organization Address City/State/ZIP Co nc Phone Number [facility] [address] [facility] Department [place] [address] * (ABNORMAL) Pro B-type natriuretic peptide (10/02/2024 [...] CDT 10/02/2024 10:13 AM CDT Soumya Marcelo RETOUCHER LAB BLOOD ORDERABLES Final Res ult Performing Organization Address [facility] Co de Phone Number [address] [address] * Magnesium (10/02/2024 9:49 AM CDT) [facility] Magnesium 1.8 1.4 - 2.5 mg/dL Blood 10/02/2024 9:49 AM CDT 10/02/2024 10:13 AM CDT Soumya Marcelo RETOUCHER LAB BLOOD ORDERABLES Final Res ult Performing Organization Address [facility] de Phone Number [address] [address] * (ABNORMAL) Comprehensive metabolic panel (10/02/2024 9:49 AM CDT) Pathologist [facility] Sodium 133(L) 135 - 145 mmol/L Potassium, pl 4.6 3.3 - 4.9 mmol/L [facility] Comment:Hemolyzed; Potassium value may be falsely elevated by as much as 1.0 mmol/L. Suggest redraw and reanalysis. Chloride 99 97 - 110 mmol/L [facility] CO2 24 22 - 32 mmol/L [facility] Anion gap 10 2 - 15 mmol/L [facility] BUN 29(H) 6 - 25 mg/dL [facility] Creatinine 1.72(H) 0.60 - 1.10 mg/dL [facility] Glucose 74 70 - 199 mg/dL [facility] Comment: Interpretive Data Fasting glucose [...] 2022. Calcium 9.1 8.5 - 10.3 mg/dL [facility] Bilirubin, total 2.4(H) 0.1 - 1.2 mg/dL [facility] Protein, pl 6.3(L) 6.5 - 8.5 g/dL [facility] Albumin 2.9(L) 3.5 - 5.0 g/dL [facility] Alk phos 95 40 - 130 Units/L [facility] ALT 26 7 - 45 Units/L [facility] AST See Comment 10 - 45 [facility] Comment:Credited; Hemolyzed Specimen Blood 10/02/2024 9:49 AM CDT 10/02/2024 10:13 AM CDT Ethan Dominguez MD LAB BLOOD ORDERABLES Final Result [facility] [address] [facility] Department [place] [address] * (ABNORMAL) Hemoglobin A1c (10/01/2024 2:13 PM CDT) Hgb A1C 6.0(H) 4.0 - 5.6 % Estimated Average Glucose 126 mg/dL [facility] Comment: The ADA recommends reporting an estimated Average Glucose (eAG) with all Hemoglobin A1c results using the equation derived from a study of 507 normal and diabetic adults. Minority populations were underrepresented and children were not included. (Diabetes Care 31:4941-0764, 2008). The eAG is not equivalent to a fasting glucose. Blood 10/01/2024 2:13 PM CDT 10/01/2024 3:17 PM CDT Soumya Marcelo NP LAB BLOOD ORDERABLES Final Res ult Performing Organization Address City/[facility]/ZIP Co de Phone Number [facility] [address] [facility] Department [place] [address] * ECG 12 lead (10/01/2024 9:52 AM CDT) Ventricular Rate EKG/Min 74 BPM [facility] Atrial Rate 74 BPM [facility] [place]-Interval (MSEC) 156 ms [facility] QRS-Interval (MSEC) 138 ms [facility] QT-Interval (MSEC) 470 ms [facility] QTc 521 ms [facility] R [place] 8 degrees [facility] T [place] 230 degrees [facility] Diagnosis Sinus rhythm with marked sinus arrhythmia Non-specific intra-ventricula r conduction block T wave abnormality, consider inferolateral ischemia Abnormal ECG When compared with ECG of 30-SEP-2024 16:01, Sinus rhythm has replaced Ectopic atrial rhythm Confirmed by SULTAN CAO M.D. ([id number]) on 10/01/2024 4:19:42 PM [facility] 10/01/2024 9:52 AM CDT 10/01/2024 4:19 PM CDT Ethan Dominguez MD ECG ORDERABLES Final Result Performing Organization Address City/[facility]/ZIP Co de Phone Number [facility] * Magnesium - Add on lab test (10/01/2024 9:00 AM CDT) Pathologist [facility] Acceptable Yes Blood 10/01/2024 9:00 AM CDT 10/01/2024 9:00 AM CDT Narrative KATALINA - 10/01/2024 9:01 AM CDT Name of Test->Magnesium Ethan Dominguez MD LAB BLOOD ORDERABLES Final Result Performing Organization Address [facility] Co de Phone Number KATALINA [address] [place] [address] * (ABNORMAL) eGFR (10/01/2024 6:17 AM CDT) [...] BLOOD ORDERABLES Final Result Performing Organization Address [facility] Co de Phone Number K[facility]ALINA [facility] [place] [address] * (ABNORMAL) Pro B-type natriuretic peptide (10/01/2024 [...] BLOOD ORDERABLES Final Result Performing Organization Address [facility] de Phone Number [place] [phone] [facility] [place] [address] * (ABNORMAL) TSH (10/01/2024 6:17 AM CDT) Thyroid Stimulating Hormone 7.85(H) 0.30 - 4.20 mcIUnit/mL Blood 10/01/2024 6:17 AM CDT 10/01/2024 6:25 AM CDT Ethan Dominguez MD LAB BLOOD ORDERABLES Final Result Performing Organization Address City/[facility] Co de Phone Number [place] [phone] [facility] [place] [address] * Phosphorus (10/01/2024 6:17 AM CDT) Pathologist [facility] Phosphorus, pl 4.3 2.3 - 4.5 mg/dL Blood 10/01/2024 6:17 AM CDT 10/01/2024 6:25 AM CDT Ethan Dominguez MD LAB BLOOD ORDERABLES Final Result Performing Organization Address City/[facility] Co de Phone Number [address] [place] [address] * Magnesium (10/01/2024 6:17 AM CDT) Pathologist [facility] Magnesium 1.8 1.4 - 2.5 mg/dL Blood 10/01/2024 6:17 AM CDT 10/01/2024 6:25 AM CDT Ethan Dominguez MD LAB BLOOD ORDERABLES Final Result Performing Organization Address City/[facility] de Phone Number [address] [place] [address] * (ABNORMAL) Lipid panel (10/01/2024 6:17 AM [...] last revised on 2018. Chol/HDL ratio 3 [facility] Blood 10/01/2024 6:17 AM CDT 10/01/2024 6:25 AM CDT Ethan Dominguez MD LAB BLOOD ORDERABLES Final Result [facility] [address] [facility] Department [place] [address] * (ABNORMAL) Comprehensive metabolic panel (10/01/2024 6:17 AM CDT) Sodium 137 135 - 145 mmol/L Potassium, pl 4.7 3.3 - 4.9 mmol/L [facility] Chloride 103 97 - 110 mmol/L [facility] CO2 22 22 - 32 mmol/L [facility] Anion gap 12 2 - 15 mmol/L [facility] BUN 29(H) 6 - 25 mg/dL [facility] Creatinine 1.72(H) 0.60 - 1.10 mg/dL [facility] Glucose 84 70 - 199 mg/dL [facility] Comment: Interpretive Data Fasting glucose [...] 2022. Calcium 9.4 8.5 - 10.3 mg/dL [facility] Bilirubin, total 2.3(H) 0.1 - 1.2 mg/dL [facility] Protein, pl 6.9 6.5 - 8.5 g/dL [facility] Albumin 3.3(L) 3.5 - 5.0 g/dL [facility] Alk phos 93 40 - 130 Units/L [facility] ALT 24 7 - 45 Units/L [facility] AST 45 10 - 45 Units/L [facility] Blood 10/01/2024 6:17 AM CDT 10/01/2024 6:25 AM CDT Ethan Dominguez MD LAB BLOOD ORDERABLES Final Result Performing Organization Address City/[facility] Co nc Phone Number KATALINA [address] [facility] Department [place] [address] * ECG 12 lead (09/30/2024 4:01 PM CDT) Pathologist [facility] Ventricular Rate EKG/Min 74 BPM [facility] Atrial Rate 74 BPM [facility] [place]-Interval (MSEC) 156 ms [facility] QRS-Interval (MSEC) 136 ms [facility] QT-Interval (MSEC) 464 ms [facility] QTc 515 ms [facility] P [place] 153 degrees [facility] R [place] 31 degrees [facility] T [place] 222 degrees [facility] Diagnosis Unusual P axis, possible ectopic [...] ([id number]) on 10/01/2024 8:26:53 AM [facility] 09/30/2024 4:01 PM CDT 10/01/2024 8:26 AM CDT Ethan Dominguez MD ECG ORDERABLES Final Result [facility] * CP-CRE culture, surveillance Rectal swab (09/30/2024 3:45 PM CDT) Pathologist [facility] Report Final Report: Negative Comment:Testing performed by : [facility], [address], [place]., [address] Rectal swab 09/30/2024 3:45 PM CDT 09/30/2024 6:04 PM CDT Narrative KATALINA - 10/02/2024 12:18 PM CDT Interpretive Data The screening agar used for the detection of carbapenemase-producing Enterobacterales (CP-CRE) has not been approved by the Food and Drug Administration. The performance characteristics of this medium have been evaluated and verified by the [facility]. This media demonstrates highest sensitivity for KPC and NDM-1 producing isolates. This screening assay is exclusively intended for infection control and surveillance, not for patient diagnosis or treatment purposes. Current interpretive data was last revised on 2023. us Eddie Manzanares MD LAB MICROBIOLOGY - GENERAL O RDERABLES Final Result Performing Organization Address [facility] Co de Phone Number [address]ARD[address] [place] [address] * Magnesium (09/30/2024 8:20 AM CDT) Pathologist [facility] Magnesium 1.8 1.4 - 2.5 mg/dL Blood 09/30/2024 8:20 AM CDT 09/30/2024 8:48 AM CDT us Ethan Dominguez MD LAB BLOOD ORDERABLES Final Result Performing Organization Address [facility] Co de Phone Number [place] [phone] [facility] [place] [address] * Magnesium - Add on lab test (09/30/2024 7:14 AM CDT) Pathologist [facility] Acceptable Yes Blood 09/30/2024 7:14 AM CDT 09/30/2024 7:14 AM CDT Narrative [facility] - 09/30/2024 7:15 AM CDT Name of Test->Magnesium Ethan Dominguez MD LAB BLOOD ORDERABLES Final Result Performing Organization Address City/[facility] Co de Phone Number [address]ERNARD[address] [address] * (ABNORMAL) eGFR (09/30/2024 4:08 AM CDT) [...] BLOOD ORDERABLES Final Result Performing Organization Address City/[facility]/ZIP Co de Phone Number BERNARDO[address] [place] [address] * Magnesium (09/30/2024 4:08 AM CDT) Magnesium 2.0 1.4 - 2.5 mg/dL Blood 09/30/2024 4:08 AM CDT 09/30/2024 4:40 AM CDT Ethan Dominguez MD LAB BLOOD ORDERABLES Final Result [facility] [address] [facility] Department [place] [address] * (ABNORMAL) Comprehensive metabolic panel (09/30/2024 4:08 AM CDT) Pathologist [facility] Sodium 133(L) 135 - 145 mmol/L Potassium, pl 4.5 3.3 - 4.9 mmol/L [facility] Comment:Hemolyzed; Potassium value may be falsely elevated by as much as 1.0 mmol/L. Suggest redraw and reanalysis. Chloride 101 97 - 110 mmol/L [facility] CO2 18(L) 22 - 32 mmol/L [facility] Anion gap 14 2 - 15 mmol/L [facility] BUN 30(H) 6 - 25 mg/dL [facility] Creatinine 1.73(H) 0.60 - 1.10 mg/dL [facility] Glucose 76 70 - 199 mg/dL [facility] Comment: Interpretive Data Fasting glucose [...] 2022. Calcium 9.8 8.5 - 10.3 mg/dL [facility] Bilirubin, total 2.3(H) 0.1 - 1.2 mg/dL [facility] Protein, pl 8.0 6.5 - 8.5 g/dL [facility] Albumin 3.5 3.5 - 5.0 g/dL [facility] Alk phos 109 40 - 130 Units/L [facility] ALT 25 7 - 45 Units/L [facility] AST See Comment 10 - 45 KATALINA [facility] Comment:Credited; Hemolyzed Specimen Blood 09/30/2024 4:08 AM CDT 09/30/2024 4:40 AM CDT Ethan Dominguez MD LAB BLOOD ORDERABLES Final Result Performing Organization Address City/[facility]/ZIP Co de Phone Number KATALINA [address] [facility] Department [place] [address] * ECG 12 lead (09/29/2024 10:29 AM CDT) Pathologist [facility] Ventricular Rate EKG/Min 83 BPM [facility] Atrial Rate 83 BPM [facility] [place]-Interval (MSEC) 198 ms [facility] QRS-Interval (MSEC) 130 ms [facility] QT-Interval (MSEC) 446 ms [facility] QTc 524 ms [facility] R [place] 132 degrees [facility] T [place] 232 degrees [facility] Diagnosis Sinus rhythm with occasional atrial-paced complexes and Premature atrial complexes Right axis deviation Non-specific intra-ventric ular conduction block Minimal voltage criteria for LVH, may be normal variant ( [place] product ) T wave abnormality, consider inferior ischemia Abnormal ECG Confirmed by SARI FELIX M.D. ([id number]) on 09/29/2024 5:13:43 PM [facility] 09/29/2024 10:2 9 AM CDT 09/29/2024 5:13 PM CDT Ethan Dominguez MD ECG ORDERABLES Final Result Performing Organization Address City/[facility]/ZIP Co de Phone Number [facility] * (ABNORMAL) eGFR (09/29/2024 6:42 [...] Dominguez MD LAB BLOOD ORDERABLES Final Result [facility] [address] [facility] Department of Laboratories [place], [place] [id number] * (ABNORMAL) Comprehensive metabolic panel (09/29/2024 6:42 AM CDT) Sodium 138 135 - 145 mmol/L Potassium, pl 3.8 3.3 - 4.9 mmol/L [facility] Chloride 105 97 - 110 mmol/L [facility] CO2 22 22 - 32 mmol/L [facility] Anion gap 11 2 - 15 mmol/L [facility] BUN 28(H) 6 - 25 mg/dL [facility] Creatinine 1.74(H) 0.60 - 1.10 mg/dL [facility] Glucose 79 70 - 199 mg/dL [facility] Comment: Interpretive Data Fasting glucose [...] 2022. Calcium 9.2 8.5 - 10.3 mg/dL [facility] Bilirubin, total 2.0(H) 0.1 - 1.2 mg/dL [facility] Protein, pl 6.3(L) 6.5 - 8.5 g/dL [facility] Albumin 3.0(L) 3.5 - 5.0 g/dL [facility] Alk phos 88 40 - 130 Units/L [facility] ALT 20 7 - 45 Units/L [facility] AST 33 10 - 45 Units/L [facility] Blood 09/29/2024 6:42 AM CDT 09/29/2024 7:18 AM CDT us Ethan Dominguez MD LAB BLOOD ORDERABLES Final Result KATALINA [address] [facility] Department [place] [address] * (ABNORMAL) eGFR (09/28/2024 10:37 AM CDT) [...] BLOOD ORDERABLES Final Result Performing Organization Address City/[facility] Co de Phone Number [address] [address] * Magnesium (09/28/2024 10:37 AM CDT) [facility] Magnesium 1.9 1.4 - 2.5 mg/dL Blood 09/28/2024 10:3 7 AM CDT 09/28/2024 11:02 AM CDT Ethan Mateo Dominguez MD LAB BLOOD ORDERABLES Final Result Performing Organization Address [facility] de Phone Number [address] [address] * (ABNORMAL) Basic metabolic panel (09/28/2024 10:37 AM CDT) [facility] Sodium 136 135 - 145 mmol/L Potassium, pl 4.2 3.3 - 4.9 mmol/L [facility] Comment:Hemolyzed; Potassium value may be falsely elevated by as much as 1.0 mmol/L. Suggest redraw and reanalysis. Chloride 101 97 - 110 mmol/L [facility] CO2 21(L) 22 - 32 mmol/L [facility] Anion gap 14 2 - 15 mmol/L [facility] BUN 25 6 - 25 mg/dL [facility] Creatinine 1.67(H) 0.60 - 1.10 mg/dL [facility] Glucose 132 70 - 199 mg/dL [facility] Comment: Interpretive Data Fasting glucose [...] BLOOD ORDERABLES Final Result Performing Organization Address City/[facility]/ZIP Co de Phone Number KATALINA [address] [facility] Department [place] [address] * ECG 12 lead (09/28/2024 9:46 AM CDT) Pathologist [facility] Ventricular Rate EKG/Min 78 BPM [facility] Atrial Rate 78 BPM [facility] [place]-Interval (MSEC) 152 ms [facility] QRS-Interval (MSEC) 136 ms [facility] QT-Interval (MSEC) 506 ms [facility] QTc 576 ms [facility] R [place] 120 degrees [facility] T [place] 238 degrees [facility] Diagnosis Sinus rhythm with occasional Premature ventricular complexes and Premature atrial complexes Non-specific intra-ventricula r conduction block T wave abnormality, consider inferolateral ischemia Abnormal ECG When compared with ECG of 27-SEP-2024 13:10, QRS axis Shifted right Confirmed by BRI TSAI M.D. ([id number]) on 10/01/2024 12:09:18 AM [facility] 09/28/2024 9:46 AM CDT 10/01/2024 12:09 AM CDT Ethan Dominguez MD ECG ORDERABLES Final Result Performing Organization Address [facility]/ZIP Co de Phone Number [facility] * (ABNORMAL) eGFR (09/28/2024 8:40 [...] Dominguez MD LAB BLOOD ORDERABLES Final Result [facility] [address] [facility] Department [place] [address] * (ABNORMAL) Differential, auto (09/28/2024 8:40 AM CDT) Pathologist [facility] Neutrophil abs 1.79 1.50 - 6.50 K/cumm Imm gran abs 0.00 0.00 - 0.10 K/cumm [facility] Lymphocyte abs 1.87 0.80 - 3.30 K/cumm [facility] Monocyte abs 0.44 0.20 - 0.80 K/cumm [facility] Eosinophil abs 1.60(H) 0.00 - 0.50 K/cumm [facility] Basophil abs 0.08 0.00 - 0.10 K/cumm [facility] Neutrophil pct 30.9 % [facility] Comment: Interpretive Data Percent cell count reference ranges are not reported, since discordance with absolute values may lead to misinterpretation of CBC data. Current Interpretive Data was last revised on 2017. Imm gran pct 0.0 % [facility] Comment: Interpretive Data Percent cell count reference ranges are not reported, since discordance with absolute values may lead to misinterpretation of CBC data. Current Interpretive Data was last revised on 2017. Lymphocyte pct 32.4 % [facility] Comment: Interpretive Data Percent cell count reference ranges are not reported, since discordance with absolute values may lead to misinterpretation of CBC data. Current Interpretive Data was last revised on 2017. Monocyte pct 7.6 % [facility] Comment: Interpretive Data Percent cell count reference ranges are not reported, since discordance with absolute values may lead to misinterpretation of CBC data. Current Interpretive Data was last revised on 2017. Eosinophil pct 27.7 % [facility] Comment: Interpretive Data Percent cell count reference ranges are not reported, since discordance with absolute values may lead to misinterpretation of CBC data. Current Interpretive Data was last revised on 2017. Basophil pct 1.4 % [facility] Comment: Interpretive Data Percent cell count reference ranges are not reported, since discordance with absolute values may lead to misinterpretation of CBC data. Current Interpretive Data was last revised on 2017. Blood 09/28/2024 8:40 AM CDT 09/28/2024 8:55 AM CDT Ethan Dominguez MD LAB BLOOD ORDERABLES Final Result [facility] [address] [facility] Department [place] [address] * (ABNORMAL) CBC with auto differential (09/28/2024 8:40 AM CDT) WBC 5.78 3.80 - 9.90 K/cumm Hgb 13.4 11.9 - 15.5 g/dL [facility] Hct 44.9 35.6 - 45.5 % [facility] Plt 128(L) 150 - 400 K/cumm [facility] MPV 9.5 9.1 - 12.3 fL [facility] RBC 4.55 3.90 - 5.20 M/cumm [facility] MCV 98.7(H) 81.3 - 96.4 fL [facility] MCH 29.5 27.1 - 33.3 pg [facility] MCHC 29.8(L) 32.3 - 35.7 g/dL [facility] RDW CV 15.2(H) 11.1 - 14.9 % [facility] RDW SD 54.2(H) 35.7 - 48.1 fL [facility] NRBC abs 0.00 0.00 - 0.01 K/cumm [facility] Blood 09/28/2024 8:40 AM CDT 09/28/2024 8:55 AM CDT Ethan Dominguez MD LAB BLOOD ORDERABLES Final Result [facility] [address] [facility] Department [place] [address] * (ABNORMAL) Comprehensive metabolic panel (09/28/2024 8:40 AM CDT) Sodium 133(L) 135 - 145 mmol/L Potassium, pl 4.3 3.3 - 4.9 mmol/L [facility] Comment:Hemolyzed; Potassium value may be falsely elevated by as much as 1.0 mmol/L. Suggest redraw and reanalysis. Chloride 103 97 - 110 mmol/L [facility] CO2 16(L) 22 - 32 mmol/L [facility] Anion gap 14 2 - 15 mmol/L [facility] BUN 25 6 - 25 mg/dL [facility] Creatinine 1.66(H) 0.60 - 1.10 mg/dL [facility] Glucose 68(L) 70 - 199 mg/dL [facility] Comment: Interpretive Data Fasting glucose [...] 2022. Calcium 9.1 8.5 - 10.3 mg/dL [facility] Bilirubin, total 2.9(H) 0.1 - 1.2 mg/dL [facility] Protein, pl 6.4(L) 6.5 - 8.5 g/dL [facility] Albumin 2.8(L) 3.5 - 5.0 g/dL [facility] Alk phos 94 40 - 130 Units/L [facility] ALT 24 7 - 45 Units/L [facility] AST See Comment 10 [facility] Comment:Credited; Hemolyzed Specimen Blood 09/28/2024 8:40 AM CDT 09/28/2024 8:55 AM CDT Ethan Dominguez MD LAB BLOOD ORDERABLES Final Result [facility] [address] [place] [address] * Magnesium (09/27/2024 2:58 PM CDT) [facility] Magnesium 1.6 1.4 - 2.5 mg/dL Blood 09/27/2024 2:58 PM CDT 09/27/2024 3:02 PM CDT Ethan Dominguez MD LAB BLOOD ORDERABLES Final Result Performing Organization Address City/[facility] Co de Phone Number BERNARDO[address] [place] [address] * ECG 12 lead (09/27/2024 1:10 PM CDT) [facility] Ventricular Rate EKG/Min 86 BPM [facility] QRS-Interval (MSEC) 128 ms [facility] QT-Interval (MSEC) 462 ms [facility] QTc 552 ms [facility] R [place] -15 degrees [facility] T [place] 213 degrees [facility] Diagnosis Atrial fibrillation Non-specific intra-ventricula r conduction block Minimal voltage criteria for LVH, may be normal variant ( Brandon product ) T wave abnormality, consider inferolateral ischemia Abnormal ECG When compared with ECG of 26-SEP-2024 15:29, No significant change was found Confirmed by PIPO CALVO M.D. ([id number]) on 09/27/2024 2:57:43 PM [facility] 09/27/2024 1:10 PM CDT 09/27/2024 2:57 PM CDT us Ethan Dominguez MD ECG ORDERABLES Final Result [facility] * TRANSTHORACIC ECHO (TTE) COMPLETE W DOPPLER/CF W CONTRAST (09/27/2024 11:30 AM CDT) LV EF 10-15 % CONS SCIMAGE Anatomical Region Laterality Modality Ultrasound 09/27/2024 10:5 3 AM CDT Narrative 09/29/2024 5:27 PM CDT Transthoracic Echocardiographic Report Patient Name: VARUN SANABRIA D : 1970 (54y 3m) Gender: F Study Date: 09/27/2024 10:53:53 AM Ht(Inch): 61 Wt(Lb): 217.99 BSA: 2.06 Water Attendant: Lanie Rivero RDCS Location: [id number] Order Provider: DU MORGAN Heart Rate: 84 BMI: 41.18 BP: 86 / 56 Ref Provider: DU MORGAN PROCEDURES: Echocardiographic Report: ([id number]) Transthoracic complete echo, 2D, spectral and tissue [...] AM Ht(Inch): 61 Wt(Lb): 217.99 BSA: 2.06 Water Attendant: Lanie Rivero RDCS Location: [id number] Order Provider:DU MORGAN Heart Rate: 84 BMI: 41.18 BP: 86 / 56 Ref Provider: DU MORGAN PROCEDURES: Echocardiographic Report: ([id number]) Transthoracic complete echo, 2D,spectral and tissue Doppler, [...] MD LAB BLOOD ORDERABLES Final R esult [place] [id number] [facility] Department [place] [address] * (ABNORMAL) CBC without differential (09/27/2024 4:45 AM CDT) WBC 7.47 3.80 - 9.90 K/cumm Hgb 13.4 11.9 - 15.5 g/dL [facility] Hct 44.3 35.6 - 45.5 % [facility] Plt 142(L) 150 - 400 K/cumm [facility] MPV 9.3 9.1 - 12.3 fL [facility] RBC 4.58 3.90 - 5.20 M/cumm [facility] MCV 96.7(H) 81.3 - 96.4 fL [facility] MCH 29.3 27.1 - 33.3 pg [facility] MCHC 30.2(L) 32.3 - 35.7 g/dL [facility] RDW CV 14.8 11.1 - 14.9 % [facility] RDW SD 51.5(H) 35.7 - 48.1 fL [facility] NRBC abs 0.00 0.00 - 0.01 K/cumm [facility] Blood 09/27/2024 4:45 AM CDT 09/27/2024 4:58 AM CDT Du Morgan MD LAB BLOOD ORDERABLES Final R esult [facility]ATALINA [address] [place] [address] * Magnesium (09/27/2024 4:45 AM CDT) [facility] Magnesium 1.5 1.4 - 2.5 mg/dL Blood 09/27/2024 4:45 AM CDT 09/27/2024 4:58 AM CDT Du Morgan MD LAB BLOOD ORDERABLES Final R esult Performing Organization Address [facility] Co de Phone Number [address] [place] [address] * (ABNORMAL) Hepatic function panel (09/27/2024 4:45 AM CDT) [facility] Bilirubin, total 3.0(H) 0.1 - 1.2 mg/dL Bilirubin, direct 1.0(H) 0.1 - 0.3 mg/dL [facility] Protein, pl 6.6 6.5 - 8.5 g/dL [facility] Albumin 3.2(L) 3.5 - 5.0 g/dL [facility] Alk phos 93 40 - 130 Units/L [facility] ALT 26 7 - 45 Units/L [facility] AST 39 10 - 45 Units/L [facility] Blood 09/27/2024 4:45 AM CDT 09/27/2024 4:58 AM CDT Du Morgan MD LAB BLOOD ORDERABLES Final R esult Performing Organization Address City/[facility] Co de Phone Number KATALINA [address] [place] [address] * (ABNORMAL) Basic metabolic panel (09/27/2024 4:45 AM CDT) [facility] Sodium 137 135 - 145 mmol/L Potassium, pl 3.6 3.3 - 4.9 mmol/L [facility] Chloride 102 97 - 110 mmol/L [facility] CO2 23 22 - 32 mmol/L [facility] Anion gap 12 2 - 15 mmol/L [facility] BUN 20 6 - 25 mg/dL [facility] Creatinine 1.59(H) 0.60 - 1.10 mg/dL [facility] Glucose 74 70 - 199 mg/dL [facility] Comment: Interpretive Data Fasting glucose [...] 2022. Calcium 9.3 8.5 - 10.3 mg/dL [facility] Blood 09/27/2024 4:45 AM CDT 09/27/2024 4:58 AM CDT Du Morgan MD LAB BLOOD ORDERABLES Final R esult [facility] [address] [facility] Department [place] [address] * (ABNORMAL) Troponin T high-sensitivity 6-hour (09/26/2024 9:20 PM CDT) Trop T hs 45(H) <=14 ng/L Comment: Interpretive Data For further hscTnT resources including the diagnostic algorithm and an aid in interpretation, copy and paste this link: https://nrl.testcatalog.org/show/hsTrop Current Interpretive Data last revised 2020. Trop T hs delta -3 ng/L [facility] Trop T hs interp Insignificant [facility] Blood 09/26/2024 9:20 PM CDT 09/26/2024 9:24 PM CDT Sailaja BANKS LAB BLOOD ORDERABLES Final Result Performing Organization Address City/[facility]/ZIP Co de Phone Number KATALINA Gary[address] [facility] [place] [address] * Blood culture Blood Blood (09/26/2024 8:40 PM CDT) Report Final Report: No growth Comment:Testing performed by : [facility], [address] [place]., [address] Blood (Blood) 09/26/2024 8:4 0 PM CDT [...] performance characteristics have been verified by the [facility] Microbiology Laboratory. For questions about this culture, contact the Microbiology Laboratory at [phone]. Interpretive data was last revised on 24. us Angela Kirk MD LAB MICROBIOLOGY - GENERAL ORDERABLES Final Result Performing Organization Address City/[facility]/ZIP Co de Phone Number KATALINA Daniels [facility] [place] [address] * Blood culture Blood Blood (09/26/2024 8:39 PM CDT) Report Final Report: No growth Comment:Testing performed by : [facility], [address] [place]., [address] Blood (Blood) 09/26/2024 8:3 9 PM CDT [...] performance characteristics have been verified by the [facility]biology Laboratory. For questions about this culture, contact the Microbiology Laboratory at [phone]. Interpretive data was last revised on 24. us Angela Kirk MD LAB MICROBIOLOGY - GENERAL ORDERABLES Final Result KATALINA MCKEON [address] [facility] Department [place] [address] * (ABNORMAL) Urinalysis reflex to microscopic and culture Urine (09/26/2024 6:27 PM CDT) Color, ur Yellow Yellow Clarity, ur Turbid(A) Clear KATALINA MCKEON Specific gravity, ur 1.013 1.003 - 1.030 [facility] pH, urine 5.5 [facility] Comment: Interpretive Data U rine pH is affected by diet, medications, systemic acid-base disturbances, and renal tubular function. pH may affect urinary stone formation. For example, urine pH below 6.0 may help reduce the tendency for calcium phosphate stones and pH greater than 6.0 may reduce the tendency for uric acid stone formation. Source: [facility] Current Interpretive Data was last revised on 2017 Protein, ur ql 2+(A) Negative [facility] Glucose, ur ql Negative Negative [facility] Ketones, ur Negative Negative [facility] Bilirubin, ur Negative Negative [facility] Blood, ur 2+(A) Negative [facility] Urobilinogen, ur 4.0(A) <2.0 mg/dL [facility] Nitrite, ur Negative Negative [facility] Leukocyte esterase, ur 4+(A) Negative [facility] UA reflex comment Reflex to microscopic UA will be performed. [facility] Urine 09/26/2024 6:27 PM CDT 09/26/2024 6:31 PM CDT Deacon BANKS LAB MICROBIOLOGY - GENERAL O RDERABLES Final Result Performing Organization Address [facility] de Phone Number [address] Department [place] [address] * (ABNORMAL) Urinalysis, microscopic only (09/26/2024 6:27 PM CDT) WBC, ur >50(A) 0 - 5 /HPF RBC, ur 11-20(A) 0 - 2 /HPF [facility] Epithelial cells, squamous, ur 1-5 0 - 5 /HPF [facility] Bacteria, ur 4+(A) [facility] Culture Reflex Comment Reflex to urine culture will be performed. [facility] Urine 09/26/2024 6:27 PM CDT 09/26/2024 6:31 PM CDT Deacon BANKS LAB URINE ORDERABLES Final R esult Performing Organization Address [facility] Co de Phone Number [place] [address] [facility] Department [place] [address] * (ABNORMAL) Urine culture Urine (09/26/2024 6:27 PM CDT) Report Final Report: Greater than or equal to 100,000 colonies/mL of Escherichia coli Plus growth of clinically insignificant bacterial guzman. (.) Comment:Testing performed by : [facility], [address] [place]., [address] Organism ESCHERICHIA COLI [facility] Organism PLUS GROWTH OF CLINICALLY INSIGNIFICANT GUZMAN. [facility] Urine 09/26/2024 6:27 PM CDT 09/26/2024 9:46 PM CDT Narrative [facility] - 09/28/2024 4:58 PM CDT Urine culture reflexed based upon urinalysis results. Testing performed by [facility] Microbiology Laboratory ([phone]) Organism Antibiotic Method Susceptibility Escherichia coli Ampicillin [...] MICROBIOLOGY - GENERAL O RDERABLES Final Result [facility] [address] [facility] Department [place] [address] * (ABNORMAL) Troponin T high-sensitivity 2-hour (09/26/2024 [...] LAB BLOOD ORDERABLES Final Result KATALINA MCKEON [address] [facility] Department [place] [address] * XR Chest 1 Vw Portable (if patient condition/safety warrant portable) (09/26/2024 3:46 PM CDT) Anatomical Region Laterality Modality Body, Chest N/A Computed Radiogr aphy 09/26/2024 4:32 PM CDT Narrative 09/26/2024 4:33 PM CDT EXAM DESCRIPTION: XR CHEST 1 VIEW REASON FOR STUDY: Shortness of breath BIBEMS from [facility]. Pt states to increased SOB, weakness, bilateral lower extremity swelling for the last week. States to taking medication as rx. Pt went to PCP today and was told her O2 level was low. Pt then drove back to [facility] where they checked her O2 [...] by Fredy Adler M.D. T: Report ID: [id number] Reading Location: [place] [address] Procedure Note Fredy Adler MD - 09/26/2024 EXAM DESCRIPTION: XR CHEST 1 VIEW REASON FOR STUDY: Shortness of breath BIBEMS from [facility]. Pt states to increased SOB, weakness, bilateral lower extremity swelling for the last week. States totaking medication as rx. Pt went to PCP today and was told her O2 level waslow. Pt then drove back to [facility] where they checked her O2 [...] by Fredy Adler M.D. T: Report ID: [id number] Reading Location: [place] [address] Angela Kirk MD IMG XR PROCEDURES Final Res ult * ECG 12 lead (09/26/2024 3:29 PM CDT) Ventricular Rate EKG/Min 112 BPM [facility] Atrial Rate 122 BPM [facility] QRS-Interval (MSEC) 134 ms [facility] QT-Interval (MSEC) 306 ms [facility] QTc 417 ms [facility] R [place] -16 degrees [facility] T [place] 196 degrees [facility] Diagnosis Atrial fibrillation with rapid ventricular response with premature ventricular or aberrantly conducted complexes Non-specific intra-ventricul ar conduction block T wave abnormality, consider inferior ischemia Abnormal ECG When compared with ECG of 06-OCT-2023 15:19, Atrial fibrillation has replaced Sinus rhythm Confirmed by PIPO CALVO M.D. ([id number]) on 09/27/2024 12:34:53 PM [facility] 09/26/2024 3:29 PM CDT 09/27/2024 12:34 PM CDT Angela Kirk MD ECG ORDERABLES Final Resul t Performing Organization Address City/[facility] de Phone Number [facility] Leevia [facility] * (ABNORMAL) Troponin T high-sensitivity series (baseline, 2hr, 4hr, 6hr) (09/26/2024 3:15 PM CDT) [facility] Trop T hs 48(H) <=14 ng/L Comment: Interpretive Data For further hscTnT resources including the diagnostic algorithm and an aid in interpretation, copy and paste this link: https://nrl.testcatalog.org/show/hsTrop Current Interpretive Data last revised 2020. Blood 09/26/2024 3:15 PM CDT 09/26/2024 3:23 PM CDT Angela Kirk MD LAB BLOOD ORDERABLES Final Result Performing Organization Address [facility] de Phone Number [facility] [address] [facility] Department [place] [address] * Influenza A/B, RSV, and COVID-19 PCR Nasopharyngeal (09/26/2024 3:15 PM CDT) [facility] COVID-19 RNA Negative Negative Influenza A RNA Negative Negative [facility]INA Influenza B RNA Negative Negative [facility] RSV RNA Negative Negative [facility] Comment: Interpretive data: Testing performed by [facility]. This test is performed using the [employer] Xpert Xpress CoV-2/Flu/RSV plus assay. This is a multiplex, real-time reverse transcriptase PCR assay intended for the qualitative detection of nucleic acid from SARS-CoV-2, influenza A, influenza B, and respiratory syncytial virus. This assay has been cleared by the [place] Food and Drug administration. The performance characteristics have been verified by the [facility]. Results must be considered in the clinical context, and a negative result does not rule out infection. Interpretive Data last revised 2023 Nasopharyngeal 09/26/2024 3: 15 PM CDT 09/26/2024 3:23 PM CDT Narrative KATALINA - 09/26/2024 4:03 PM CDT Is the Patient experiencing symptoms consistent with COVID?->No Angela Kirk MD LAB MICROBIOLOGY - GENERAL ORDERABLES Final Result Performing Organization Address City/[facility]/ZIP Co de Phone Number KATALINA [address] [place] [address] * (ABNORMAL) eGFR (09/26/2024 3:15 PM CDT) [...] Kirk MD LAB BLOOD ORDERABLES Final Result [facility] [address] [facility] Department [place] [address] * (ABNORMAL) Differential, auto (09/26/2024 3:15 PM CDT) Neutrophil abs 4.26 1.50 - 6.50 K/cumm Imm gran abs 0.02 0.00 - 0.10 K/cumm [facility] Lymphocyte abs 1.56 0.80 - 3.30 K/cumm [facility] Monocyte abs 0.48 0.20 - 0.80 K/cumm [facility] Eosinophil abs 0.76(H) 0.00 - 0.50 K/cumm [facility] Basophil abs 0.10 0.00 - 0.10 K/cumm [facility] Neutrophil pct 59.3 % [facility] Comment: Interpretive Data Percent cell count reference ranges are not reported, since discordance with absolute values may lead to misinterpretation of CBC data. Current Interpretive Data was last revised on 2017. Imm gran pct 0.3 % [facility] Comment: Interpretive Data Percent cell count reference ranges are not reported, since discordance with absolute values may lead to misinterpretation of CBC data. Current Interpretive Data was last revised on 2017. Lymphocyte pct 21.7 % [facility] Comment: Interpretive Data Percent cell count reference ranges are not reported, since discordance with absolute values may lead to misinterpretation of CBC data. Current Interpretive Data was last revised on 2017. Monocyte pct 6.7 % [facility] Comment: Interpretive Data Percent cell count reference ranges are not reported, since discordance with absolute values may lead to misinterpretation of CBC data. Current Interpretive Data was last revised on 2017. Eosinophil pct 10.6 % [facility] Comment: Interpretive Data Percent cell count reference ranges are not reported, since discordance with absolute values may lead to misinterpretation of CBC data. Current Interpretive Data was last revised on 2017. Basophil pct 1.4 % [facility] Comment: Interpretive Data Percent cell count reference ranges are not reported, since discordance with absolute values may lead to misinterpretation of CBC data. Current Interpretive Data was last revised on 2017. Blood 09/26/2024 3:15 PM CDT 09/26/2024 3:23 PM CDT us Angela Kirk MD LAB BLOOD ORDERABLES Final Result KATALINA MH [address] [facility] Department [place] [address] * (ABNORMAL) Pro B-type natriuretic peptide (09/26/2024 [...] ORDERABLES Final R esult Performing Organization Address [facility] Co de Phone Number [address] [address] * (ABNORMAL) CBC with auto differential (09/26/2024 3:15 PM CDT) [facility] WBC 7.18 3.80 - 9.90 K/cumm Hgb 14.4 11.9 - 15.5 g/dL [facility] Hct 45.7(H) 35.6 - 45.5 % [facility] Plt 154 150 - 400 K/cumm [facility] MPV 9.3 9.1 - 12.3 fL [facility] RBC 4.89 3.90 - 5.20 M/cumm [facility] MCV 93.5 81.3 - 96.4 fL [facility] MCH 29.4 27.1 - 33.3 pg [facility] MCHC 31.5(L) 32.3 - 35.7 g/dL [facility] RDW CV 14.6 11.1 - 14.9 % [facility] RDW SD 49.4(H) 35.7 - 48.1 fL [facility] NRBC abs 0.00 0.00 - 0.01 K/cumm [facility] Blood 09/26/2024 3:15 PM CDT 09/26/2024 3:23 PM CDT us Angela Kirk MD LAB BLOOD ORDERABLES Final Result Performing Organization Address [facility] Co de Phone Number [address] [place] [address] * (ABNORMAL) Comprehensive metabolic panel (09/26/2024 3:15 PM CDT) [facility] [facility] Sodium 137 135 - 145 mmol/L Potassium, pl 3.5 3.3 - 4.9 mmol/L [facility] Chloride 99 97 - 110 mmol/L [facility] CO2 23 22 - 32 mmol/L [facility] Anion gap 15 2 - 15 mmol/L [facility] BUN 20 6 - 25 mg/dL [facility] Creatinine 1.66(H) 0.60 - 1.10 mg/dL [facility] Glucose 115 70 - 199 mg/dL [facility] Comment: Interpretive Data Fasting glucose [...] 2022. Calcium 9.6 8.5 - 10.3 mg/dL [facility] Bilirubin, total 3.0(H) 0.1 - 1.2 mg/dL [facility] Protein, pl 7.6 6.5 - 8.5 g/dL [facility] Albumin 3.7 3.5 - 5.0 g/dL [facility] Alk phos 118 40 - 130 Units/L [facility] ALT 35 7 - 45 Units/L [facility] AST 46(H) 10 - 45 Units/L [facility] Blood 09/26/2024 3:15 PM CDT 09/26/2024 3:23 PM CDT Angela Kirk MD LAB BLOOD ORDERABLES Final Result Performing Organization Address City/State/[facility] de Phone Number [facility] [address] [facility] Department [place] [address] from Last 3 Months Insurance [facility] Member Subscriber Plan / Payer (Ef fective 2022-Present) Name:Varun Sanabria Relation to Subscriber:Self Name:Varun Sanabria Payer ID:[id number] (NAIC) Group ID:Not on file Type:MEDICAID RISK OTHER Address: ATTN: CLAIMS DEPT [address] [place] [phone] [facility] Advance Directives For more information, please contact: [phone] Documents on File Type Date Recorded Patient General Neurologist Expl anation ADVANCE DIRECTIVE 02/18/2022 2:53 PM Power of Mapping Technician-Medical * Full Code (Latest Code Status on File) Date Activated Date Inactivated Comments 09/26/2024 11:29 PM 10/02/2024 7:33 PM * Full Code Date Activated Date Inactivated Comments 10/06/2023 9:22 PM 10/11/2023 6:59 PM * Full Code Date Activated Date Inactivated Comments 09/14/2022 3:55 PM 09/15/2022 3:31 PM * Full Code Date Activated Date Inactivated Comments 02/18/2022 3:21 AM 02/24/2022 12:30 AM Care Teams Nuisance Wildlife Trapper Relationship Specialty Start Date End Date Soumya Araujo MD PCP - General Injection Molding Machine Operator 10/05/22 Sultan Louis Cao MD [address] [place] [address] Consulting Physician Cardiovascular Disease 10/02/24
--- OUTSIDE RECORDS SUMMARY | 2024-12-04 21:23 | XMS_ITS | Referral Summary ---
Author Organization [facility] Virtual Care Address [address] [place] [phone] Phone Care Team Providers Care Manager New Product Name Role Phone Soumya Araujo MD Primary Care Provider [phone] Sultan Louis Cao MD Unavailable [phone] Encounters Date Type Department Care Team Description 11/19/2024 Home Care Visit [place] [address] [address] [place] [id number] Rosangela Chauhan, PT PT NON ADMIT 11/19/2024 Travel 11/19/2024 Telephone [facility] [address] [place] [address] Rosette Mckeon RN 11/19/2024 Telephone [facility] [address] [place] [address] Rosette Mckeon, RN 11/19/2024 Telephone [facility] [address] [place] [phone] Rosette Mckeon RN 11/19/2024 Telephone [facility] [address] [facility] [address] [place] [address] Rosette Mckeon, RN 11/19/2024 Telephone [facility] [address] [place] [phone] Rosette Mckeon RN 10/07/2024 TCC Subsequent Outreach [facility] [address] [place] [address] Jorge Jack, RN 09/26/2024 5:33 PM CDT - 10/02/2024 3:15 PM CDT Hospital Encounter [facility] [address] [place] [phone] Angela Kirk MD Georgiyev, Sergiy, MD Saturno Arias, MD Aaliyah Torres Saim, DO Winston, Carlo Leal MD Acute on chronic congestive heart failure, unspecified heart failure type (HCC) (Primary Dx); Acute UTI Discharge Disposition: Discharge to retirement facility 09/27/2024 TCC Initial Eligibility Review [facility] [address] [place] [phone] Jorge Jack, RN from Last 3 Months [...] total) by mouth daily 4 Active vit Q-C-fjwkmb-zinc -lutein 226-90-0.8-5 mg capsule Take 1 capsule [...] & Plan (10/02/2024 3:08 PM CDT): Consulting hazmat cdl driver felt this was related to the patient's [...] & Plan (10/01/2024 2:22 PM CDT): Consulting hazmat cdl driver felt this was related to the patient's sepsis. patient already has ICD in place in left upper chest. Patient denies any shocks/defibrillation. - device interrogation ordered and remains pending. Continue patient on Coreg 6.25 mg BID. Patient is on continuous telemetry. Telemetry reviewed and no further ventricular ectopy noted in the past 24 hours. Typical atrial flutter 11/17/2023 Paroxysmal atrial fibrillation 11/17/2023 manager intermediate current use of anticoagulant 4 High risk medication use 11/17/2023 ICD (implantable cardioverter-defibrillator) in place 11/17/2023 Overview (07/23/2024): [employer] [place] [employer] 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VT, NICM [...] Recorded In the past 12 months has [employer], gas, oil, or water [email or web address] threatened to shut off services in your home? No 09/27/2024 Social Connection and Isolation Panel [NHANES] A nswer Date Recorded In a typical week, how many times do you talk on the phone with family, friends, or neighbors? Never 09/27/2024 How often do you get together with friends or re latives? Never 09/27/2024 How often do you attend latter day or advent serv ices? Never 09/27/2024 Do you belong to any clubs o r organizations such as latter day groups, unions, fraternal or athletic groups, or [...] place to sleep or slept in a fci (including now)? Patient declined 10/09/2023 Housing Stability [...] any time in the past 12 m cox [place], were you homeless or living in a fci (including now)? No 09/27/2024 Personal Safety Answer Date Recorded Have you ever been in or are you currently in a harmful physical or emotional relationship or is someone making you feel afraid or unsafe? 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 Gender Identity Female 01/10/2024 9:21 AM CDT [...] on file Medical Devices Implanted Type Area Bindery Manager Device Identifier Shelf Expiration Date Model / Serial / Lot [employer] Vascade Mvp 6-12fr Venous Closure [id number] - [id number] - [id number] Implanted:Qty: 1 on 09/14/2022 by Parminder Meadows MD at [facility] Collagen Right: Femoral [employer] 04/25/2024 800-612C -10U / [id number] / [id number] [employer] Vascade Mvp 6-12fr Venous Closure [id number] - [id number] - [id number] Implanted:Qty: 1 on 09/14/2022 by Parminder Meadows MD at [facility] Collagen Right: Femoral [employer] 05/30/2024 800-612C -10U / [id number] 212C / [id number] 212C [employer] Vascade Mvp 6-12fr Venous Closure [id number] - [id number] - [id number] Implanted:Qty: 1 on 09/14/2022 by Parminder Meadows MD at [facility] Collagen Left: Femoral [employer] 05/30/2024 800-612C -10U / [id number] 212C / [id number] 212C [employer] Vascade Mvp 6-12fr Venous Closure [id number] - [id number] - [id number] Implanted:Qty: 1 on 09/14/2022 by Parminder Meadows MD at [facility] Collagen Left: Femoral [employer] 05/30/2024 800-612C -10U / [id number] 212C / [id number] 212C [employer] Angio-Seal Vip 6fr Closere Device [id number] - [id number] Implanted:Qty: 1 on 02/18/2022 by Duke Armenta MD at [facility] [employer] 11/16/2022 [id number] / / [id number] [place] [employer] Dynagen Enduralife Easyview Hf Perspectiv 5.37x7.68cm 2 Chamber D152 - [id number] - [id number] Implanted:Qty: 1 on 02/22/2022 by Jordy Patton MD at [facility] [employer] [id number] 09/23/2023 D152 / [id number] / [place] [employer] Kermit [place] 4-Front 59cm Active Fixation Lead Icd 0672 - [id number] - [id number] Implanted:Qty: 1 on 02/22/2022 by Jordy Patton MD at [facility] [place] [employer] Kermit [id number] 09/23/2023 0672 / [id number] / [employer] [place] [email or web address] Lead 7841 Endocardial Pacing Mr Is-1 Bipolar Connection 7841 - [id number] - [id number] Implanted:Qty: 1 on 02/22/2022 by Jordy Patton MD at [facility] [employer] Kermit [id number] 02/04/2024 7841 / [id number] / Med[employer] Tyrx Absorbable Antibacterial Envelope-Large 3.3x2.9in [id number] - [id number] Implanted:Qty: 1 on 02/22/2022 by Jordy Patton MD at [facility] [employer] [id number] / / Procedures Procedure Name Priority Date/Time [...] Dominguez MD LAB BLOOD ORDERABLES Final Result [facility] [address] [facility] Department [place] [address] * (ABNORMAL) Pro B-type natriuretic [...] 10/02/2024 10:13 AM CDT us Soumya Marcelo BROADCAST SYSTEMS ENGINEER LAB BLOOD ORDERABLES Final Res ult [facility] [address] [facility] Department [place] [address] * Magnesium (10/02/2024 9:49 AM CDT) Magnesium 1.8 1.4 - 2.5 mg/dL Blood 10/02/2024 9:49 AM CDT 10/02/2024 10:13 AM CDT us Soumya Marcelo BROADCAST SYSTEMS ENGINEER LAB BLOOD ORDERABLES Final Res ult [facility] [address] [facility] Department [place] [address] * (ABNORMAL) Comprehensive metabolic panel (10/02/2024 9:49 AM CDT) Sodium 133(L) 135 - 145 mmol/L Potassium, pl 4.6 3.3 - 4.9 mmol/L [facility] Comment:Hemolyzed; Potassium value may be falsely elevated by as much as 1.0 mmol/L. Suggest redraw and reanalysis. Chloride 99 97 - 110 mmol/L [facility] CO2 24 22 - 32 mmol/L [facility] Anion gap 10 2 - 15 mmol/L [facility] BUN 29(H) 6 - 25 mg/dL [facility] Creatinine 1.72(H) 0.60 - 1.10 mg/dL [facility] Glucose 74 70 - 199 mg/dL [facility] Comment: Interpretive Data Fasting glucose >/= [...] 2022. Calcium 9.1 8.5 - 10.3 mg/dL [facility] Bilirubin, total 2.4(H) 0.1 - 1.2 mg/dL [facility] Protein, pl 6.3(L) 6.5 - 8.5 g/dL [facility] Albumin 2.9(L) 3.5 - 5.0 g/dL [facility] Alk phos 95 40 - 130 Units/L [facility] ALT 26 7 - 45 Units/L [facility] AST See Comment 10 [facility] Comment:Credited; Hemolyzed Specimen Blood 10/02/2024 9:49 AM CDT 10/02/2024 10:13 AM CDT us Ethan Dominguez MD LAB BLOOD ORDERABLES Final Result Performing Organization Address [facility] Co de Phone Number KATALINA [address] [address] * (ABNORMAL) Hemoglobin A1c (10/01/2024 2:13 PM CDT) Pathologist [facility] Hgb A1C 6.0(H) 4.0 - 5.6 % Estimated Average Glucose 126 mg/dL [facility] Comment: The ADA recommends reporting an estimated Average Glucose (eAG) with all Hemoglobin A1c results using the equation derived from a study of 507 normal and diabetic adults. Minority populations were underrepresented and children were not included. (Diabetes Care 31:0283-5216, 2008). The eAG is not equivalent to a fasting glucose. Blood 10/01/2024 2:13 PM CDT 10/01/2024 3:17 PM CDT us Soumya Marcelo NP LAB BLOOD ORDERABLES Final Res ult Performing Organization Address [facility] Co de Phone Number [address]ERNARD[address] [address] * ECG 12 lead (10/01/2024 9:52 AM CDT) [facility] Ventricular Rate EKG/Min 74 BPM [facility] Atrial Rate 74 BPM [facility] TN-Interval (MSEC) 156 ms [facility] QRS-Interval (MSEC) 138 ms [facility] QT-Interval (MSEC) 470 ms [facility] QTc 521 ms [facility] R Mellen 8 degrees [facility] T Mellen 230 degrees [facility] Diagnosis Sinus rhythm with marked [...] Ethan Dominguez MD ECG ORDERABLES Final Result [facility] * Magnesium - Add on lab test (10/01/2024 9:00 AM CDT) Acceptable Yes Blood 10/01/2024 9:00 AM CDT 10/01/2024 9:00 AM CDT Narrative KATALINA - 10/01/2024 9:01 AM CDT Name of Test->Magnesium Ethan Dominguez MD LAB BLOOD ORDERABLES Final Result Performing Organization Address City/[facility]/ZIP Co de Phone Number KATALINA [address] [facility] Department of Laboratories [place] [phone] * (ABNORMAL) eGFR (10/01/2024 6:17 AM CDT) [...] LAB BLOOD ORDERABLES Final Result KATALINA [address] [facility] Department [place] [address] * (ABNORMAL) Pro B-type natriuretic peptide (10/01/2024 [...] BLOOD ORDERABLES Final Result Performing Organization Address City/[facility]/ZIP Co de Phone Number [address] [address] * (ABNORMAL) TSH (10/01/2024 6:17 AM CDT) Thyroid Stimulating Hormone 7.85(H) 0.30 - 4.20 mcIUnit/mL Blood 10/01/2024 6:17 AM CDT 10/01/2024 6:25 AM CDT Ethan Dominguez MD LAB BLOOD ORDERABLES Final Result Performing Organization Address [facility] de Phone Number [address] [address] * Phosphorus (10/01/2024 6:17 AM CDT) Pathologist [facility] Phosphorus, pl 4.3 2.3 - 4.5 mg/dL Blood 10/01/2024 6:17 AM CDT 10/01/2024 6:25 AM CDT Ethan Dominguez MD LAB BLOOD ORDERABLES Final Result Performing Organization Address [facility] Co de Phone Number [address] [address] * Magnesium (10/01/2024 6:17 AM CDT) [facility] Magnesium 1.8 1.4 - 2.5 mg/dL Blood 10/01/2024 6:17 AM CDT 10/01/2024 6:25 AM CDT Ethan Dominguez MD LAB BLOOD ORDERABLES Final Result Performing Organization Address City/[facility]/ZIP Co de Phone Number [address] [place] [address] * (ABNORMAL) Lipid panel (10/01/2024 6:17 AM [...] MD LAB BLOOD ORDERABLES Final Result KATALINA [address] [facility] Department [place] [address] * (ABNORMAL) Comprehensive metabolic panel (10/01/2024 6:17 AM CDT) Sodium 137 135 - 145 mmol/L Potassium, pl 4.7 3.3 - 4.9 mmol/L [facility] Chloride 103 97 - 110 mmol/L [facility] CO2 22 22 - 32 mmol/L [facility] Anion gap 12 2 - 15 mmol/L [facility] BUN 29(H) 6 - 25 mg/dL [facility] Creatinine 1.72(H) 0.60 - 1.10 mg/dL [facility] Glucose 84 70 - 199 mg/dL [facility] Comment: Interpretive Data Fasting glucose >/= [...] 2022. Calcium 9.4 8.5 - 10.3 mg/dL [facility] Bilirubin, total 2.3(H) 0.1 - 1.2 mg/dL [facility] Protein, pl 6.9 6.5 - 8.5 g/dL [facility] Albumin 3.3(L) 3.5 - 5.0 g/dL [facility] Alk phos 93 40 - 130 Units/L [facility] ALT 24 7 - 45 Units/L [facility] AST 45 10 - 45 Units/L [facility] Blood 10/01/2024 6:17 AM CDT 10/01/2024 6:25 AM CDT Ethan Dominguez MD LAB BLOOD ORDERABLES Final Result [facility] [address] [facility] Department [place] [address] * ECG 12 lead (09/30/2024 4:01 PM CDT) Pathologist [facility] Ventricular Rate EKG/Min 74 BPM [facility] Atrial Rate 74 BPM [facility] TN-Interval (MSEC) 156 ms [facility] QRS-Interval (MSEC) 136 ms [facility] QT-Interval (MSEC) 464 ms [facility] QTc 515 ms [facility] P Mellen 153 degrees [facility] R Mellen 31 degrees [facility] T Mellen 222 degrees [facility] Diagnosis Unusual P [...] ECG ORDERABLES Final Result Performing Organization Address City/[facility]/ZIP Co de Phone Number [facility] * CP-CRE culture, surveillance Rectal swab (09/30/2024 3:45 PM CDT) Report Final Report: Negative Comment:Testing performed by : [facility], [address] [place]., [address] Rectal swab 09/30/2024 3:45 PM CDT 09/30/2024 6:04 PM CDT Narrative KATALINA - 10/02/2024 12:18 PM CDT Interpretive Data The screening agar used for the detection of carbapenemase-producing Enterobacterales (CP-CRE) has not been approved by the Food and Drug Administration. The performance characteristics of this medium have been evaluated and verified by the [facility]. This media demonstrates highest sensitivity for KPC and NDM-1 producing isolates. This screening assay is exclusively intended for infection control and surveillance, not for patient diagnosis or treatment purposes. Current interpretive data was last revised on 2023. us Eddie Manzanares MD LAB MICROBIOLOGY - GENERAL O RDERABLES Final Result [facility] [address] [facility] Department [place] [address] * Magnesium (09/30/2024 8:20 AM CDT) Pathologist [facility] Magnesium 1.8 1.4 - 2.5 mg/dL Blood 09/30/2024 8:20 AM CDT 09/30/2024 8:48 AM CDT Ethan Dominguez MD LAB BLOOD ORDERABLES Final Result Performing Organization Address City/[facility] Co de Phone Number BERNARDO[address] [place] [address] * Magnesium - Add on lab test (09/30/2024 7:14 AM CDT) Pathologist [facility] Acceptable Yes Blood 09/30/2024 7:14 AM CDT 09/30/2024 7:14 AM CDT Narrative [facility] 09/30/2024 7:15 AM CDT Name of Test->Magnesium Ethan Dominguez MD LAB BLOOD ORDERABLES Final Result Performing Organization Address City/[facility] de Phone Number [address] [place] [address] * (ABNORMAL) eGFR (09/30/2024 4:08 AM CDT) Pathologist [facility] eGFR 34(L) >=60 mL/min/1. 73 m2 Comment: [...] BLOOD ORDERABLES Final Result Performing Organization Address [facility] Co de Phone Number [address] [place] [address] * Magnesium (09/30/2024 4:08 AM CDT) [facility] Magnesium 2.0 1.4 - 2.5 mg/dL Blood 09/30/2024 4:08 AM CDT 09/30/2024 4:40 AM CDT Ethan Dominguez MD LAB BLOOD ORDERABLES Final Result Performing Organization Address [facility] de Phone Number [address] [place] [address] * (ABNORMAL) Comprehensive metabolic panel (09/30/2024 4:08 AM CDT) Pathologist [facility] Sodium 133(L) 135 - 145 mmol/L Potassium, pl 4.5 3.3 - 4.9 mmol/L [facility] Comment:Hemolyzed; Potassium value may be falsely elevated by as much as 1.0 mmol/L. Suggest redraw and reanalysis. Chloride 101 97 - 110 mmol/L [facility] CO2 18(L) 22 - 32 mmol/L [facility] Anion gap 14 2 - 15 mmol/L [facility] BUN 30(H) 6 - 25 mg/dL [facility] Creatinine 1.73(H) 0.60 - 1.10 mg/dL [facility] Glucose 76 70 - 199 mg/dL [facility] Comment: Interpretive Data Fasting glucose >/= [...] 2022. Calcium 9.8 8.5 - 10.3 mg/dL [facility] Bilirubin, total 2.3(H) 0.1 - 1.2 mg/dL [facility] Protein, pl 8.0 6.5 - 8.5 g/dL [facility] Albumin 3.5 3.5 - 5.0 g/dL [facility] Alk phos 109 40 - 130 Units/L [facility] ALT 25 7 - 45 Units/L [facility] AST See Comment 10 - 45 [facility] Comment:Credited; Hemolyzed Specimen Blood 09/30/2024 4:08 AM CDT 09/30/2024 4:40 AM CDT us Ethan Dominguez MD LAB BLOOD ORDERABLES Final Result [facility] [address] [facility] Department [place] [address] * ECG 12 lead (09/29/2024 10:29 AM CDT) Pathologist [facility] Ventricular Rate EKG/Min 83 BPM [facility] Atrial Rate 83 BPM [facility] TN-Interval (MSEC) 198 ms [facility] QRS-Interval (MSEC) 130 ms [facility] QT-Interval (MSEC) 446 ms [facility] QTc 524 ms [facility] R Mellen 132 degrees [facility] T Mellen 232 degrees [facility] Diagnosis Sinus rhythm with occasional atrial-paced complexes and Premature atrial complexes Right axis deviation Non-specific intra-ventric ular conduction block Minimal voltage criteria for LVH, may be normal variant ( [place] product ) T wave abnormality, consider inferior ischemia Abnormal ECG Confirmed by SARI FELIX M.D. ([id number]) on 09/29/2024 5:13:43 PM [facility] 09/29/2024 10:2 9 AM CDT 09/29/2024 5:13 PM CDT Ethan Dominguez MD ECG ORDERABLES Final Result [facility] * (ABNORMAL) eGFR (09/29/2024 6:42 [...] Dominguez MD LAB BLOOD ORDERABLES Final Result [facility] [address] [facility] Department [place] [address] * (ABNORMAL) Comprehensive metabolic panel (09/29/2024 6:42 AM CDT) Sodium 138 135 - 145 mmol/L Potassium, pl 3.8 3.3 - 4.9 mmol/L [facility] Chloride 105 97 - 110 mmol/L [facility] CO2 22 22 - 32 mmol/L [facility] Anion gap 11 2 - 15 mmol/L [facility] BUN 28(H) 6 - 25 mg/dL [facility] Creatinine 1.74(H) 0.60 - 1.10 mg/dL [facility] Glucose 79 70 - 199 mg/dL [facility] Comment: Interpretive Data Fasting glucose >/= [...] 2022. Calcium 9.2 8.5 - 10.3 mg/dL [facility] Bilirubin, total 2.0(H) 0.1 - 1.2 mg/dL [facility] Protein, pl 6.3(L) 6.5 - 8.5 g/dL [facility] Albumin 3.0(L) 3.5 - 5.0 g/dL [facility] Alk phos 88 40 - 130 Units/L [facility] ALT 20 7 - 45 Units/L [facility] AST 33 10 - 45 Units/L [facility] Blood 09/29/2024 6:42 AM CDT 09/29/2024 7:18 AM CDT Ethan Dominguez MD LAB BLOOD ORDERABLES Final Result [facility] [address] [facility] Department [place] [address] * (ABNORMAL) eGFR (09/28/2024 10:37 AM CDT) Pathologist [facility] eGFR 36(L) >=60 mL/min/1. 73 m2 Comment: [...] BLOOD ORDERABLES Final Result Performing Organization Address [facility] Co de Phone Number [address] [place] [address] * Magnesium (09/28/2024 10:37 AM CDT) Pathologist [facility] Magnesium 1.9 1.4 - 2.5 mg/dL Blood 09/28/2024 10:3 7 AM CDT 09/28/2024 11:02 AM CDT Ethan Dominguez MD LAB BLOOD ORDERABLES Final Result Performing Organization Address [facility] Co de Phone Number [address] [address] * (ABNORMAL) Basic metabolic panel (09/28/2024 10:37 AM CDT) Pathologist [facility] Sodium 136 135 - 145 mmol/L Potassium, pl 4.2 3.3 - 4.9 mmol/L [facility] Comment:Hemolyzed; Potassium value may be falsely elevated by as much as 1.0 mmol/L. Suggest redraw and reanalysis. Chloride 101 97 - 110 mmol/L [facility] CO2 21(L) 22 - 32 mmol/L [facility] Anion gap 14 2 - 15 mmol/L [facility] BUN 25 6 - 25 mg/dL [facility] Creatinine 1.67(H) 0.60 - 1.10 mg/dL [facility] Glucose 132 70 - 199 mg/dL [facility] Comment: Interpretive Data Fasting glucose >/= [...] 2022. Calcium 9.0 8.5 - 10.3 mg/dL [facility] Blood 09/28/2024 10:3 7 AM CDT 09/28/2024 11:02 AM CDT us Ethan Dominguez MD LAB BLOOD ORDERABLES Final Result [facility] [address] [facility] Department [place] [address] * ECG 12 lead (09/28/2024 9:46 AM CDT) Pathologist [facility] Ventricular Rate EKG/Min 78 BPM [facility] Atrial Rate 78 BPM [facility] TN-Interval (MSEC) 152 ms [facility] QRS-Interval (MSEC) 136 ms [facility] QT-Interval (MSEC) 506 ms [facility] QTc 576 ms [facility] R Mellen 120 degrees [facility] T Mellen 238 degrees [facility] [...] Ethan Dominguez MD ECG ORDERABLES Final Result [facility] * (ABNORMAL) eGFR (09/28/2024 8:40 [...] MD LAB BLOOD ORDERABLES Final Result KATALINA [address] [facility] Department [place] [address] * (ABNORMAL) Differential, auto (09/28/2024 8:40 AM CDT) Neutrophil abs 1.79 1.50 - 6.50 K/cumm Imm gran abs 0.00 0.00 - 0.10 K/cumm [facility] Lymphocyte abs 1.87 0.80 - 3.30 K/cumm [facility] Monocyte abs 0.44 0.20 - 0.80 K/cumm [facility] Eosinophil abs 1.60(H) 0.00 - 0.50 K/cumm [facility] Basophil abs 0.08 0.00 - 0.10 K/cumm [facility] Neutrophil pct 30.9 % [facility] Comment: Interpretive Data Percent cell count reference ranges are not reported, since discordance with absolute values may lead to misinterpretation of CBC data. Current Interpretive Data was last revised on 2017. Imm gran pct 0.0 % [facility] Comment: Interpretive Data Percent cell count reference ranges are not reported, since discordance with absolute values may lead to misinterpretation of CBC data. Current Interpretive Data was last revised on 2017. Lymphocyte pct 32.4 % [facility] Comment: Interpretive Data Percent cell count reference ranges are not reported, since discordance with absolute values may lead to misinterpretation of CBC data. Current Interpretive Data was last revised on 2017. Monocyte pct 7.6 % [facility] Comment: Interpretive Data Percent cell count reference ranges are not reported, since discordance with absolute values may lead to misinterpretation of CBC data. Current Interpretive Data was last revised on 2017. Eosinophil pct 27.7 % [facility] Comment: Interpretive Data Percent cell count reference ranges are not reported, since discordance with absolute values may lead to misinterpretation of CBC data. Current Interpretive Data was last revised on 2017. Basophil pct 1.4 % [facility] Comment: Interpretive Data Percent cell count reference ranges are not reported, since discordance with absolute values may lead to misinterpretation of CBC data. Current Interpretive Data was last revised on 2017. Blood 09/28/2024 8:40 AM CDT 09/28/2024 8:55 AM CDT us Ethan Dominguez MD LAB BLOOD ORDERABLES Final Result KATALINA [address] [facility] Department [place] [address] * (ABNORMAL) CBC with auto differential (09/28/2024 8:40 AM CDT) [facility] WBC 5.78 3.80 - 9.90 K/cumm Hgb 13.4 11.9 - 15.5 g/dL [facility] Hct 44.9 35.6 - 45.5 % [facility] Plt 128(L) 150 - 400 K/cumm [facility] MPV 9.5 9.1 - 12.3 fL [facility] RBC 4.55 3.90 - 5.20 M/cumm [facility] MCV 98.7(H) 81.3 - 96.4 fL [facility] MCH 29.5 27.1 - 33.3 pg [facility] MCHC 29.8(L) 32.3 - 35.7 g/dL [facility] RDW CV 15.2(H) 11.1 - 14.9 % [facility] RDW SD 54.2(H) 35.7 - 48.1 fL [facility] NRBC abs 0.00 0.00 - 0.01 K/cumm [facility] Blood 09/28/2024 8:40 AM CDT 09/28/2024 8:55 AM CDT us Ethan Dominguez MD LAB BLOOD ORDERABLES Final Result [address] Department [place] [address] * (ABNORMAL) Comprehensive metabolic panel (09/28/2024 8:40 AM CDT) [facility] Sodium 133(L) 135 - 145 mmol/L Potassium, pl 4.3 3.3 - 4.9 mmol/L [facility] Comment:Hemolyzed; Potassium value may be falsely elevated by as much as 1.0 mmol/L. Suggest redraw and reanalysis. Chloride 103 97 - 110 mmol/L [facility] CO2 16(L) 22 - 32 mmol/L [facility] Anion gap 14 2 - 15 mmol/L [facility] BUN 25 6 - 25 mg/dL [facility] Creatinine 1.66(H) 0.60 - 1.10 mg/dL [facility] Glucose 68(L) 70 - 199 mg/dL [facility] Comment: Interpretive Data Fasting glucose >/= [...] 2022. Calcium 9.1 8.5 - 10.3 mg/dL [facility] Bilirubin, total 2.9(H) 0.1 - 1.2 mg/dL [facility] Protein, pl 6.4(L) 6.5 - 8.5 g/dL [facility] Albumin 2.8(L) 3.5 - 5.0 g/dL [facility] Alk phos 94 40 - 130 Units/L [facility] ALT 24 7 - 45 Units/L [facility] AST See Comment 10 - 45 [facility] Comment:Credited; Hemolyzed Specimen Blood 09/28/2024 8:40 AM CDT 09/28/2024 8:55 AM CDT Ethan Dominguez MD LAB BLOOD ORDERABLES Final Result Performing Organization Address [facility] Co de Phone Number [address] [place] [address] * Magnesium (09/27/2024 2:58 PM CDT) [facility] Magnesium 1.6 1.4 - 2.5 mg/dL Blood 09/27/2024 2:58 PM CDT 09/27/2024 3:02 PM CDT Ethan Dominguez MD LAB BLOOD ORDERABLES Final Result Performing Organization Address City/[facility] Co de Phone Number [place] [phone] [facility] [place] [address] * ECG 12 lead (09/27/2024 1:10 PM CDT) Ventricular Rate EKG/Min 86 BPM [facility] QRS-Interval (MSEC) 128 ms [facility] QT-Interval (MSEC) 462 ms [facility] QTc 552 ms [facility] R Mellen -15 degrees [facility] T Mellen 213 degrees [facility] Diagnosis Atrial fibrillation Non-specific intra-ventricula r conduction block Minimal voltage criteria for LVH, may be normal variant ( [place] product ) T wave abnormality, consider inferolateral ischemia Abnormal ECG When compared with ECG of 26-SEP-2024 15:29, No significant change was found Confirmed by PIPO CALVO M.D. ([id number]) on 09/27/2024 2:57:43 PM [facility] 09/27/2024 1:10 PM CDT 09/27/2024 2:57 PM CDT us Ethan Dominguez MD ECG ORDERABLES Final Result [facility] * TRANSTHORACIC ECHO (TTE) COMPLETE W DOPPLER/CF W CONTRAST (09/27/2024 11:30 AM CDT) [facility] LV EF 10-15 % CONS SCIMAGE Anatomical Region Laterality Modality Ultrasound 09/27/2024 10:5 3 AM CDT Narrative 09/29/2024 5:27 PM CDT Transthoracic Echocardiographic Report Patient Name: VARUN SANABRIA D : 1970 (54y 3m) Gender: F Study Date: 09/27/2024 10:53:53 AM Ht(Inch): 61 Wt(Lb): 217.99 BSA: 2.06 Medical Care Administrator: Lanie Rivero RDCS Location: [id number] Order Provider: DU MORGAN Heart Rate: 84 BMI: 41.18 BP: 86 / 56 Ref Provider: DU MORGAN PROCEDURES: Echocardiographic Report: ([id number]) Transthoracic complete echo, 2D, spectral and tissue [...] 09/29/2024 Transthoracic Echocardiographic Report Patient Name: VARUN SANABRIAeHrbie : 1970 (54y 3m) Gender: F Study Date: 09/27/2024 10:53:53 AM Ht(Inch): 61 Wt(Lb): 217.99 BSA: 2.06 Medical Care Administrator: Lanie Rivero RDCS Location: [id number] Order Provider:DU MORGAN Heart Rate: 84 BMI: 41.18 BP: 86 / 56 Ref Provider: DU MORGAN PROCEDURES: Echocardiographic Report: ([id number]) Transthoracic complete echo, 2D,spectral and tissue Doppler, [...] MD LAB BLOOD ORDERABLES Final R esult [facility] [address] [facility] Department [place] [address] * (ABNORMAL) CBC without differential (09/27/2024 4:45 AM CDT) WBC 7.47 3.80 - 9.90 K/cumm Hgb 13.4 11.9 - 15.5 g/dL KATALINA Hct 44.3 35.6 - 45.5 % [facility] Plt 142(L) 150 - 400 K/cumm [facility] MPV 9.3 9.1 - 12.3 fL [facility] RBC 4.58 3.90 - 5.20 M/cumm [facility] MCV 96.7(H) 81.3 - 96.4 fL [facility] MCH 29.3 27.1 - 33.3 pg [facility] MCHC 30.2(L) 32.3 - 35.7 g/dL [facility] RDW CV 14.8 11.1 - 14.9 % [facility] RDW SD 51.5(H) 35.7 - 48.1 fL [facility] NRBC abs 0.00 0.00 - 0.01 K/cumm [facility] Blood 09/27/2024 4:45 AM CDT 09/27/2024 4:58 AM CDT Du Morgan MD LAB BLOOD ORDERABLES Final R esult Performing Organization Address [facility] Co de Phone Number [address] [place] [address] * Magnesium (09/27/2024 4:45 AM CDT) [facility] Magnesium 1.5 1.4 - 2.5 mg/dL Blood 09/27/2024 4:45 AM CDT 09/27/2024 4:58 AM CDT Du Morgan MD LAB BLOOD ORDERABLES Final R esult Performing Organization Address [facility] Co de Phone Number [address] [place] [address] * (ABNORMAL) Hepatic function panel (09/27/2024 4:45 AM CDT) [facility] Bilirubin, total 3.0(H) 0.1 - 1.2 mg/dL Bilirubin, direct 1.0(H) 0.1 - 0.3 mg/dL [facility] Protein, pl 6.6 6.5 - 8.5 g/dL [facility] Albumin 3.2(L) 3.5 - 5.0 g/dL [facility] Alk phos 93 40 - 130 Units/L [facility] ALT 26 7 - 45 Units/L [facility] AST 39 10 - 45 Units/L [facility] Blood 09/27/2024 4:45 AM CDT 09/27/2024 4:58 AM CDT Du Morgan MD LAB BLOOD ORDERABLES Final R esult Performing Organization Address [facility] Phone Number KATALINA [address] [facility] Department [place] [address] * (ABNORMAL) Basic metabolic panel (09/27/2024 4:45 AM CDT) Pathologist [facility] Sodium 137 135 - 145 mmol/L Potassium, pl 3.6 3.3 - 4.9 mmol/L [facility] Chloride 102 97 - 110 mmol/L [facility] CO2 23 22 - 32 mmol/L [facility] Anion gap 12 2 - 15 mmol/L [facility] BUN 20 6 - 25 mg/dL [facility] Creatinine 1.59(H) 0.60 - 1.10 mg/dL [facility] Glucose 74 70 - 199 mg/dL [facility] Comment: Interpretive Data Fasting glucose >/= [...] 2022. Calcium 9.3 8.5 - 10.3 mg/dL [facility] Blood 09/27/2024 4:45 AM CDT 09/27/2024 4:58 AM CDT Du Morgan MD LAB BLOOD ORDERABLES Final R esult Performing Organization Address [facility]/ZIP Co de Phone Number KATALINA [facility] Department [place] [address] * (ABNORMAL) Troponin T high-sensitivity 6-hour (09/26/2024 [...] BLOOD ORDERABLES Final Result Performing Organization Address [facility] de Phone Number KATALINA [facility] [place] [address] * Blood culture Blood Blood (09/26/2024 8:40 PM CDT) Report Final Report: No growth Comment:Testing performed by : [facility], [address] [place] [address] Blood (Blood) 09/26/2024 8:4 0 PM CDT 09/27/2024 4:50 AM CDT Narrative [facility] 10/01/2024 7:00 AM CDT Collection->Peripheral 1. [...] be performed for organism identification using the katiha ePlex blood culture identification panel for gram positive (BCID-GP) and gram negative (BCID-GN) organisms. This nucleic acid amplification test detects microbial DNA in positive blood culture broth. This assay has been cleared by the [place] Food and Drug Administration and its performance characteristics have been verified by the [facility] Microbiology Laboratory. For questions about this culture, contact the Microbiology Laboratory at [phone]. Interpretive data was last revised on 24. Angela Kirk MD LAB MICROBIOLOGY - GENERAL ORDERABLES Final Result KATALINA [place] [address] [facility] Department [place] [address] * Blood culture Blood Blood (09/26/2024 8:39 PM CDT) Report Final Report: No growth Comment:Testing performed by : [facility], [address] [place]., [address] Blood (Blood) 09/26/2024 8:3 9 PM CDT 09/27/2024 4:50 AM CDT [facility] KATALINA MCKEON - 10/01/2024 7:00 AM CDT [...] performance characteristics have been verified by the [facility] Microbiology Laboratory. For questions about this culture, contact the Microbiology Laboratory at [phone]. Interpretive data was last revised on 24. Angela Kirk MD LAB MICROBIOLOGY - GENERAL ORDERABLES Final Result Performing Organization Address City/[facility]/ZIP Co de Phone Number [address] [place] [address] * (ABNORMAL) Urinalysis reflex to microscopic and culture Urine (09/26/2024 6:27 PM CDT) Color, ur Yellow Yellow Clarity, ur Turbid(A) Clear [facility] Specific gravity, ur 1.013 1.003 - 1.030 [facility] pH, urine 5.5 [facility] Comment: Interpretive Data U rine pH is affected by diet, medications, systemic acid-base disturbances, and renal tubular function. pH may affect urinary stone formation. For example, urine pH below 6.0 may help reduce the tendency for calcium phosphate stones and pH greater than 6.0 may reduce the tendency for uric acid stone formation. Source: [facility] Current Interpretive Data was last revised on 2017 Protein, ur ql 2+(A) Negative [facility] Glucose, ur ql Negative Negative [facility] Ketones, ur Negative Negative [facility] Bilirubin, ur Negative Negative [facility] Blood, ur 2+(A) Negative [facility] Urobilinogen, ur 4.0(A) <2.0 mg/dL [facility] Nitrite, ur Negative Negative [facility] Leukocyte esterase, ur 4+(A) Negative [facility] UA reflex comment Reflex to microscopic UA will be performed. [facility] Urine 09/26/2024 6:27 PM CDT 09/26/2024 6:31 PM CDT Deacon BANKS LAB MICROBIOLOGY - GENERAL O RDERABLES Final Result Performing Organization Address City/[facility]/ZIP Co de Phone Number [facility] [address] [facility] [place] [address] * (ABNORMAL) Urinalysis, microscopic only (09/26/2024 6:27 PM CDT) WBC, ur >50(A) 0 - 5 /HPF RBC, ur 11-20(A) 0 - 2 /HPF [facility] Epithelial cells, squamous, ur 1-5 0 - 5 /HPF [facility] Bacteria, ur 4+(A) [facility] Culture Reflex Comment Reflex to urine culture will be performed. [facility] Urine 09/26/2024 6:27 PM CDT 09/26/2024 6:31 PM CDT Deacon BANKS LAB URINE ORDERABLES Final R esult KATALINA [address] [facility] Department [place] [address] * (ABNORMAL) Urine culture Urine (09/26/2024 6:27 PM CDT) Report Final Report: Greater than or equal to 100,000 colonies/mL of Escherichia coli Plus growth of clinically insignificant bacterial guzman. (.) Comment:Testing performed by : [facility], [address] [place]., [address] Organism ESCHERICHIA COLI [facility] Organism PLUS GROWTH OF CLINICALLY INSIGNIFICANT GUZMAN. [facility] Urine 09/26/2024 6:27 PM CDT 09/26/2024 9:46 PM CDT Narrative [facility] - 09/28/2024 4:58 PM CDT Urine culture reflexed based upon urinalysis results. Testing performed by [facility] Microbiology Laboratory ([phone]) Organism Antibiotic Method Susceptibility Escherichia coli Ampicillin [...] O RDERABLES Final Result Performing Organization Address [facility] Co de Phone Number KATALINA [address] [address] * (ABNORMAL) Troponin T high-sensitivity 2-hour (09/26/2024 5:45 PM CDT) Trop T hs 46(H) <=14 ng/L Comment: Interpretive Data For further hscTnT resources including the diagnostic algorithm and an aid in interpretation, copy and paste this link: https://nrl.testcatalog.org/show/hsTrop Current Interpretive Data last revised 2020. Trop T hs delta -2 ng/L [facility] Trop T hs interp Insignificant [facility] Blood 09/26/2024 5:45 PM CDT 09/26/2024 5:47 PM CDT Sailaja BANKS LAB BLOOD ORDERABLES Final Result Performing Organization Address [facility] Co de Phone Number KATALINA [address] [address] * XR Chest 1 Vw Portable (if patient condition/safety warrant portable) (09/26/2024 3:46 PM CDT) Anatomical Region Laterality Modality Body, Chest N/A Computed Radiogr aphy 09/26/2024 4:32 PM CDT Narrative 09/26/2024 4:33 PM CDT EXAM DESCRIPTION: XR CHEST 1 VIEW REASON FOR STUDY: Shortness of breath BIBEMS from [facility]. Pt states to increased SOB, weakness, bilateral lower extremity swelling for the last week. States to taking medication as rx. Pt went to PCP today and was told her O2 level was low. Pt then drove back to [facility] where they checked her O2 and pt [...] 09/26/2024 4:33 PM - Electronically signed by rFedy Adler M.D. T: Report ID: [id number] Reading Location: [place] [address] Procedure Note Fredy Adlre MD - 09/26/2024 EXAM DESCRIPTION: XR CHEST 1 VIEW REASON FOR STUDY: Shortness of breath BIBEMS from [facility]. Pt states to increased SOB, weakness, bilateral lower extremity swelling for the last week. States totaking medication as rx. Pt went to PCP today and was told her O2 level waslow. Pt then drove back to [facility] where they checked her O2 and pt [...] Fredy Adler M.D. KH T: Report ID: [id number] [place] Location: [place] [address] Angela Kirk MD IMG XR PROCEDURES Final Res ult * ECG 12 lead (09/26/2024 3:29 PM CDT) Pathologist [facility] Ventricular Rate EKG/Min 112 BPM [facility] Atrial Rate 122 BPM [facility] QRS-Interval (MSEC) 134 ms [facility] QT-Interval (MSEC) 306 ms [facility] QTc 417 ms [facility] R Mellen -16 degrees [facility] T Mellen 196 degrees [facility] [...] Kirk MD ECG ORDERABLES Final Resul t [facility] * (ABNORMAL) Troponin T high-sensitivity series (baseline, 2hr, 4hr, 6hr) (09/26/2024 3:15 PM CDT) Pathologist [facility] Trop T hs 48(H) <=14 ng/L Comment: Interpretive Data For further hscTnT resources including the diagnostic algorithm and an aid in interpretation, copy and paste this link: https://nrl.testcatalog.org/show/hsTrop Current Interpretive Data last revised 2020. Blood 09/26/2024 3:15 PM CDT 09/26/2024 3:23 PM CDT Angela Kirk MD LAB BLOOD ORDERABLES Final Result Performing Organization Address City/State/[facility] Co de Phone Number KATALINA [facility] [place] [address] * Influenza A/B, RSV, and COVID-19 PCR Nasopharyngeal (09/26/2024 3:15 PM CDT) Pathologist [facility] COVID-19 RNA Negative Negative Influenza A RNA Negative Negative [facility] Influenza B RNA Negative Negative [facility] RSV RNA Negative Negative [facility] Comment: Interpretive data: Testing performed by [facility]. This test is performed using the [employer] Xpert Xpress CoV-2/Flu/RSV plus assay. This is a multiplex, real-time reverse transcriptase PCR assay intended for the qualitative detection of nucleic acid from SARS-CoV-2, influenza A, influenza B, and respiratory syncytial virus. This assay has been cleared by the [place] Food and Drug administration. The performance characteristics have been verified by the [facility]. Results must be considered in the clinical context, and a negative result does not rule out infection. Interpretive Data last revised 2023 Nasopharyngeal 09/26/2024 3: 15 PM CDT 09/26/2024 3:23 PM CDT Narrative [facility] - 09/26/2024 4:03 PM CDT Is the Patient experiencing symptoms consistent with COVID?->No Angela Kirk MD LAB MICROBIOLOGY - GENERAL ORDERABLES Final Result Performing Organization Address [facility] Co de Phone Number [place] [address] [place] [address] * (ABNORMAL) eGFR (09/26/2024 3:15 PM CDT) [facility] eGFR 36(L) >=60 mL/min/1. 73 m2 Comment: [...] Kirk MD LAB BLOOD ORDERABLES Final Result [place] [address] [facility] Department [place] [address] * (ABNORMAL) Differential, auto (09/26/2024 3:15 PM CDT) Pathologist [facility] Neutrophil abs 4.26 1.50 - 6.50 K/cumm Imm gran abs 0.02 0.00 - 0.10 K/cumm [facility] Lymphocyte abs 1.56 0.80 - 3.30 K/cumm [facility] Monocyte abs 0.48 0.20 - 0.80 K/cumm [facility] Eosinophil abs 0.76(H) 0.00 - 0.50 K/cumm [facility] Basophil abs 0.10 0.00 - 0.10 K/cumm [facility] Neutrophil pct 59.3 % [facility] Comment: Interpretive Data Percent cell count reference ranges are not reported, since discordance with absolute values may lead to misinterpretation of CBC data. Current Interpretive Data was last revised on 2017. Imm gran pct 0.3 % [facility] Comment: Interpretive Data Percent cell count reference ranges are not reported, since discordance with absolute values may lead to misinterpretation of CBC data. Current Interpretive Data was last revised on 2017. Lymphocyte pct 21.7 % [facility] Comment: Interpretive Data Percent cell count reference ranges are not reported, since discordance with absolute values may lead to misinterpretation of CBC data. Current Interpretive Data was last revised on 2017. Monocyte pct 6.7 % [facility] Comment: Interpretive Data Percent cell count reference ranges are not reported, since discordance with absolute values may lead to misinterpretation of CBC data. Current Interpretive Data was last revised on 2017. Eosinophil pct 10.6 % [facility] Comment: Interpretive Data Percent cell count reference ranges are not reported, since discordance with absolute values may lead to misinterpretation of CBC data. Current Interpretive Data was last revised on 2017. Basophil pct 1.4 % [facility] Comment: Interpretive Data Percent cell count reference ranges are not reported, since discordance with absolute values may lead to misinterpretation of CBC data. Current Interpretive Data was last revised on 2017. Blood 09/26/2024 3:15 PM CDT 09/26/2024 3:23 PM CDT Angela Kirk MD LAB BLOOD ORDERABLES Final Result [facility] [address] [facility] Department [place] [address] * (ABNORMAL) Pro B-type natriuretic peptide (09/26/2024 [...] BANKS LAB BLOOD ORDERABLES Final R esult [place] [id number] [facility] Department [place] [address] * (ABNORMAL) CBC with auto differential (09/26/2024 3:15 PM CDT) WBC 7.18 3.80 - 9.90 K/cumm Hgb 14.4 11.9 - 15.5 g/dL [facility] Hct 45.7(H) 35.6 - 45.5 % [facility] Plt 154 150 - 400 K/cumm [facility] MPV 9.3 9.1 - 12.3 fL [facility] RBC 4.89 3.90 - 5.20 M/cumm [facility] MCV 93.5 81.3 - 96.4 fL [facility] MCH 29.4 27.1 - 33.3 pg [facility] MCHC 31.5(L) 32.3 - 35.7 g/dL [facility] RDW CV 14.6 11.1 - 14.9 % [facility] RDW SD 49.4(H) 35.7 - 48.1 fL [facility] NRBC abs 0.00 0.00 - 0.01 K/cumm [facility] Blood 09/26/2024 3:15 PM CDT 09/26/2024 3:23 PM CDT Angela Kirk MD LAB BLOOD ORDERABLES Final Result [place] [address] [facility] Department [place] [address] * (ABNORMAL) Comprehensive metabolic panel (09/26/2024 3:15 PM CDT) Sodium 137 135 - 145 mmol/L Potassium, pl 3.5 3.3 - 4.9 mmol/L [facility] Chloride 99 97 - 110 mmol/L [facility] CO2 23 22 - 32 mmol/L [facility] Anion gap 15 2 - 15 mmol/L [facility] BUN 20 6 - 25 mg/dL [facility] Creatinine 1.66(H) 0.60 - 1.10 mg/dL [facility] Glucose 115 70 - 199 mg/dL [facility] Comment: Interpretive Data Fasting glucose >/= [...] 2022. Calcium 9.6 8.5 - 10.3 mg/dL [facility] Bilirubin, total 3.0(H) 0.1 - 1.2 mg/dL [facility] Protein, pl 7.6 6.5 - 8.5 g/dL [facility] Albumin 3.7 3.5 - 5.0 g/dL [facility] Alk phos 118 40 - 130 Units/L [facility] ALT 35 7 - 45 Units/L [facility] AST 46(H) 10 - 45 Units/L [facility] Blood 09/26/2024 3:15 PM CDT 09/26/2024 3:23 PM CDT us Angela Kirk MD LAB BLOOD ORDERABLES Final Result [address] [address] [facility] Department [place] [address] from Last 3 Months Insurance 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 Expl anation ADVANCE DIRECTIVE 02/18/2022 2:53 PM Power of News Clerk-Medical * Full Code (Latest Code Status on File) Date Activated Date Inactivated Comments 09/26/2024 11:29 PM 10/02/2024 7:33 PM * Full Code Date Activated Date Inactivated Comments 10/06/2023 9:22 PM 10/11/2023 6:59 PM * Full Code Date Activated Date Inactivated Comments 09/14/2022 3:55 PM 09/15/2022 3:31 PM * Full Code Date Activated Date Inactivated Comments 02/18/2022 3:21 AM 02/24/2022 12:30 AM Care Teams Manager New Product Relationship Specialty Start Date End Date Soumya Araujo MD PCP - General Systems Mechanic 10/05/22 Sultan Louis Cao MD [address] [place] [address] Consulting Physician Cardiovascular Disease 10/02/24
--- OUTSIDE RECORDS SUMMARY | 2024-12-04 21:23 | XMS_ITS | Encounter Summary ---
Author Organization [facility] Healthcare Address [address] [place] [address] Care Team Providers Care Batch Heat Treat Operator Name Role Phone Soumya Araujo MD Primary Care Provider [phone] Sultan Louis Clarke MD Unavailable [phone] Encounter Details Date Type Department Care Team (Late st Contact Info) Description 11/19/[address] [place] [address] Rosette Mckeon RN Social History Tobacco Use Types Packs/Day Years Used Date Smoking Tobacco: Never Smokeless Tobacco: Never Alcohol Use Standard Drinks/Week Comments Never 0 (1 standard drink = 0.6 oz pur e alcohol) [facility] Utilities Answer Date Recorded In the past 12 months has [employer] electric, gas, oil, or water company [...] Never 09/27/2024 How often do you attend nondenominational or episcopal serv ices? Never 09/27/2024 Do you belong to any clubs o r organizations such as nondenominational groups, unions, fraternal or athletic groups, or [...] No 09/27/2024 Housing Stability Vital Sign Answer Araon e Recorded In the last 12 months, [...] place to sleep or slept in a nursing home (including now)? Patient declined 10/09/2023 Housing Stability [...] any time in the past 12 m [facility], were you homeless or living in a nursing home (including now)? No 09/27/2024 Personal Safety Answer Date Recorded Have you ever been in or are you currently in a harmful physical or emotional relationship or is someone making you feel afraid or unsafe? 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
--- OUTSIDE RECORDS SUMMARY | 2024-12-04 21:23 | XMS_ITS | Encounter Summary ---
Author Organization [facility] Healthcare Address [address] [place] [address] Care Team Providers Care Oil Burner Repairer Name Role Phone Soumya Araujo MD Primary Care Provider [phone] Sultan Louis Clarke MD Unavailable [phone] Encounter Details Date Type Department Care Team (Late st Contact Info) Description 11/19/[address] [place] [address] Rosette Mckeon RN Social History Tobacco Use Types Packs/Day Years Used Date Smoking Tobacco: Never Smokeless Tobacco: Never Alcohol Use Standard Drinks/Week Comments Never 0 (1 standard drink = 0.6 oz pur e alcohol) [facility] Utilities Answer Date Recorded In the past 12 months has [employer] electric, gas, oil, or water company threatened [...] Never 09/27/2024 How often do you attend adventist or buddhist serv ices? Never 09/27/2024 Do you belong to any clubs o r organizations such as adventist groups, unions, fraternal or athletic groups, or [...] place to sleep or slept in a [facility] (including now)? Patient declined 10/09/2023 Housing Stability [...] any time in the past 12 m [facility], were you homeless or living in a [facility] (including now)? No 09/27/2024 Personal Safety Answer Date Recorded Have you ever been in or are you currently in a harmful physical or emotional relationship or is someone making you feel afraid or unsafe? Denies 09/26/2024 Comments No Sex and Gender Information Value Date Recorded Sex Assigned at Not on file Legal Sex Female 3:29 PM PLANT ATTENDANT OR ASSISTANT OPERATOR Gender Identity Female 01/10/2024 9:21 AM CDT Sexual Orientation Straight 01/10/2024 9: 21 AM CDT documented as of this encounter Plan of Treatment Not on file documented as of this encounter Visit Diagnoses Not on filedocumented in this encounter Care Teams Oil Burner Repairer Relationship Specialty Start Date End Date Soumya Araujo MD PCP - General Seed Expert 10/05/22 Sultan Louis Clarke MD [address] [place] [address] Consulting Physician Cardiovascular Disease 10/02/24 documented as of this encounter
--- OUTSIDE RECORDS SUMMARY | 2024-12-04 21:23 | XMS_ITS | Encounter Summary ---
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
--- NOTE | 2024-12-04 21:26 | PC.NURSE ---
order for antibiotics for pneumonia received. asked edp about blood cultures, informed that she does not need them as she is not septic. no new orders received.
[2024-12-04] MEDS: FUROSEMIDE INJ 100 MG/10 ML VIAL 80 MG IV PUSH (21:30)
--- NOTE | 2024-12-04 21:35 | PC.NURSE ---
antibiotic charted on, then RN noticed blood culture order. antibiotic had not begun infusing, so charting undone until blood cultures are obtained
[2024-12-04] MEDS: AMIODARONE 150 MG/D5W 100 ML 150 MG/100 ML BAG 600 MG IV CONT (22:59)
[2024-12-04] MEDS: DOXYCYCLINE 100 MG/NS 100 ML 100 MG/100 ML BAG IVPB (23:00)
[2024-12-04] MEDS: AMIODARONE 360 MG/D5W 200 ML 360 MG/200 ML BAG 33.33 MG IV CONT (23:14)
[2024-12-04 23:20] LABS: Lactic Acid Reflex 2.2 mmol/L (0.7-2.0)
[2024-12-05] VITALS (28 sets, daily range): BP systolic 66–111; BP diastolic 37–96; PULSE 88–108; RESP 18–29; TEMP 35.8–37.2; O2SAT 96–100; BMI 39.9
--- NOTE | 2024-12-05 00:19 | ADMGEN ---
This patient, Varun Sanabria, was admitted to Intensive Care Unit-3. Patient/family oriented to hospital policies and general routines including ID bracelet, bed and alarms, visiting hours, pain management, procedures, bathroom and other care routines, personal items, smoking policy, room service/diet, and visiting hours. Information on how to activate the Rapid Response Team has been discussed. Patient/Family are encouraged to report perceived risks to care and to ask questions if they do not understand what they are told or what they should do.
[2024-12-05 00:44] LABS: MRSA (PCR) DETECTED (NOT DETECTE)
[2024-12-05] MEDS: VANCOMYCIN 1,500 MG/NS 500 ML 1,500 MG/500 ML BAG 250 MG IVPB (00:53)
[2024-12-05 00:55] LABS: Reflex Lactic Acid Yes or No Add Lactic
[2024-12-05] MEDS: IPRATROPIUM 0.5 MG/ALBUTEROL SULFATE 2.5 MG AMPUL.NEB 3 ML INHALATION ×4 (01:59→20:02)
[2024-12-05 03:42] LABS: Estimated CRCL calculation 24 ml/min; Estimated Glomerular Filt Rate 20
[2024-12-05] MEDS: AMIODARONE 360 MG/D5W 200 ML 360 MG/200 ML BAG 16.67 MG IV CONT ×2 (04:52→16:52)
--- NOTE | 2024-12-05 05:24 | PCRCNOTE ---
0200: Patient observed calm and stable, until RT walked in; starts tachypneic and grunting; claims chest pain, indicates the area of the diaphragm; nebulized DuoNeb given; says she is scheduled Albuterol, at this time, at home; feels better post neb. 0455: BiPAP has been ordered; placed on S, 12/6, 30%, FFM-sm; immediately not tolerated, try adjustment and replacement still not tolerated; placed back on nasal cannula 3 L/min; still claiming chest pain, indicating Left central area of chest, RN informed.
--- NOTE | 2024-12-05 06:00 | ECHO_ITS ---
Patient Info Name: Varun Sanabria Age: 54 years : 1970 Gender: Female Ht: 61 in Wt: 209 lbs BSA: 2.07 m2 BP: 92 / 72 mmHg Heart Rhythm: Sinus Rhythm Technical Quality: Fair Exam Date: 12/05/2024 11:35 AM Patient Status: I Admit Date: 12/04/2024 Exam Type: CA echo dop color flow w con Complete two-dimensional, color flow and Doppler transthoracic echocardiogram is performed with contrast to opacify the left ventricle and to improve the deliniation of the left ventricle endocardial borders. Staff Referring Physician: Erickson Foote MD Agricultural Technical Officer: Zaida Hurd Attending Provider: Namita Glover DO Contrast/Agitated Saline Contrast/Ag. Saline: Definity Amount: 2.00 ml Existing IV Access: Yes Summary 1. Four-chamber dilated cardiomyopathy. 2. Profound left and right ventricular systolic dysfunction ejection fraction 10-15%. 3. Mild MR resulting from annular dilation. 4. At least moderate pulmonary hypertension based on tricuspid regurgitant velocity. Left Ventricle Left ventricular chamber dimension is severely enlarged. Left ventricular systolic function is severely reduced, estimated at <15. The left ventricular diastolic function is indeterminate. Right Ventricle Right ventricular chamber dimension is severely enlarged. Right ventricular systolic function is reduced. Left Atria Left atrial chamber dimension is severely enlarged. Right Atria Right atrial chamber dimension is severely enlarged. Linear artifact in the right atrium suggestive of catheter(s), pacemaker lead(s), or ICD lead(s). Aortic Valve The aortic valve is trileaflet. There is mild aortic valve sclerosis. Pulmonic Valve The pulmonic valve is not well visualized. Mitral Valve The mitral valve has normal leaflets. There is mild mitral valve regurgitation. Tricuspid Valve The tricuspid valve leaflets are normal. There is moderate to severe tricuspid valve regurgitation. Moderate pulmonary hypertension, estimated pulmonary arterial systolic pressure is 57 mmHg. Pericardium/Pleural The pericardium appears normal. Aorta The aortic root size at the sinus of Valsalva is normal. Left Ventricular Outflow Tract Name Value Normal LVOT 2D LVOT Diameter 1.9 cm LVOT Doppler LVOT Peak Velocity 68 cm/s LVOT Peak Gradient 2 mmHg LVOT Mean Gradient 1 mmHg LVOT VTI 11 cm LVOT Stroke Volume 33 ml LVOT CO 2.7 l/min LVOT CI 1.3 l/min/m2 Pulmonic Valve Name Value Normal RVOT Doppler RVOT Peak Velocity 54 cm/s RVOT Peak Gradient 1 mmHg PV Doppler PV Peak Velocity 63 cm/s PV Peak Gradient 2 mmHg Mitral Valve Name Value Normal MV Diastolic Function MV E Peak Velocity 65 cm/s MV A Peak Velocity 36 cm/s MV E/A 1.8 MV Decel Time (PW) 71 ms MV Annular TDI MV E/e' (Septal) 17.5 MV E/e' (Lateral) 8.1 MV E/e' (Average) 12.8 Tricuspid Valve Name Value Normal TV Regurgitation Doppler TR Peak Velocity 399 cm/s TR Peak Gradient 64 mmHg Estimated PAP/RSVP PA Systolic Pressure 57 mmHg <36 TV Annular TDI TV Lateral Yeny s' Velocity 7.4 cm/s >=9.5 Aortic Valve Name Value Normal AV Doppler AV Peak Velocity 77 cm/s AV Peak Gradient 2 mmHg AV Area (Cont Eq Negrito) 2.5 cm2 AV DI (Negrito) 0.88 AV Regurgitation 2D LVOT Area 2.9 cm2 Ventricles Name Value Normal LV Dimensions 2D/MM IVS Diastolic Thickness (2D) 0.9 cm 0.6-1.0 LVID Diastole (2D) 5.3 cm 3.8-5.2 LVIW Diastolic Thickness (2D) 0.9 cm 0.6-0.9 LVID Systole (2D) 5.1 cm 2.2-3.5 LVOT Diameter 1.9 cm LV Mass (2D Cubed) 177.48 g 67.00-162.00 LV Mass Index (2D Cubed) 86 g/m2 43-95 Relative Wall Thickness (2D) 0.32 <=0.42 LV Fractional Shortening/Ejection Fraction 2D/MM LV Fractional Shortening (2D) 5 % 27-45 LV EF (2D Teichholz) 12 % LV Diastolic Volume (4C MOD) 147 ml LV EF (4C MOD) 9 % LV Diastolic Volume (2C MOD) 104 ml LV EF (2C MOD) 11 % LV Diastolic Volume (BP MOD) 133 ml 46-106 LV Diastolic Volume Index (BP MOD) 64 ml/m2 29-61 LV Systolic Volume (BP MOD) 113 ml 14-42 LV Systolic Volume Index (BP MOD) 55 ml/m2 8-24 LV EF (BP MOD) 15 % 54-74 LV Diastolic Length (4C) 8.0 cm LV Systolic Length (4C) 7.2 cm LV Stroke Volume (4C MOD) 13 ml Atria Name Value Normal LA Dimensions LA Volume (4C A-L) 45 ml LA Volume (BP A-L) 47 ml RA Dimensions RA Systolic Major [place] Length (4C) 5.9 cm 2.2-2.8 RA Area (4C) 22.4 cm2 <=18.0 Report Signatures
[2024-12-05 06:01] LABS: Lactic Acid 4.5 mmol/L (0.7-2.0)
[2024-12-05 06:09] LABS: Troponin I 0.119 ng/mL (0.000-0.034)
[2024-12-05] MEDS: FLUTICASONE/SALMETEROL 115-21 MCG INHALER 1 PUFF 2 PUFF INHALATION ×2 (08:23→20:02)
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
[2024-12-05] MEDS: levoFLOXacin 750 MG/D5W 150 ML 750 MG/150 ML BAG 100 MG IVPB (08:53)
[2024-12-05] MEDS: ENOXAPARIN 30 MG/0.3 ML SYRINGE SUB-Q (08:54)
[2024-12-05 08:56] LABS: Procalcitonin. 0.2 ng/mL
[2024-12-05] MEDS: ATORVASTATIN 20 MG TABLET PO (09:07)
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
[2024-12-05] MEDS: NOREPINEPHRINE 8 MG/D5W 250 ML 8 MG/250 ML BAG 9.38 MG IV CONT (10:21)
[2024-12-05] MEDS: LIDOCAINE 1% PF INJ 5 ML VIAL INFILTRATE (10:45)
[2024-12-05] MEDS: PERFLUTREN LIPID MICROSPHERES 1.5 ML VIAL DILUTED TO 10 ML TOTAL VOLUME IV PUSH (11:45)
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
--- NOTE | 2024-12-05 13:03 | IVDEFINITY ---
Prior to administration of IV Definity the patient was educated on the risks and benefits of the imaging enhancing agent including potential adverse side effects. The patient verbalized understanding. Allergies were verified. No exclusion criteria were identified and at least one of the following inclusion criteria were met: 1) physician request, 2) patient technically difficult to image (per the [place] [employer] guidelines of two or more segments not discernable within the apical view), or 3) questionable left ventricular function. ?
[2024-12-05 14:24] LABS: Add Urine Microscopic? YES; Appearance Urine Cloudy (Clear); Bacteria Urine None Seen /hpf; Bilirubin Urine 1+ (Negative); Blood Urine Negative (Negative); Color Urine Dark Yellow (Yellow); Glucose Urine UA Negative (Negative); Ketones Urine Negative (Negative); Leukocyte Esterase Ur Negative LEU/UL (Negative); Nitrate Urine Negative (Negative); Protein Urine 3+ mg/dL (Negative); RBC Urine 0-2 /hpf (0-2); Specific Grav Ur 1.014 (1.001-1.035); Squamous Epithelial Cell Urine None Seen /hpf (Few); WBC Urine 0-5 /hpf (0-3)
[2024-12-05] MEDS: CENTRAL LINE FLUSH 10 ML IV PUSH ×2 (16:00→20:37)
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
[2024-12-05] MEDS: FUROSEMIDE INJ 100 MG/10 ML VIAL 80 MG IV PUSH (17:21)
[2024-12-05 17:39] LABS: Creatinine Urine 108.3 mg/dL
[2024-12-05] MEDS: HYDROcodone/acetaminophen (*CRX) 5-325 MG TABLET 1 TAB PO (20:36)
[2024-12-05 23:01] LABS: Vancomycin Trough 15.2 ug/mL (10.0-20.0)
[2024-12-06] VITALS (53 sets, daily range): BP systolic 78–107; BP diastolic 40–79; PULSE 74–99; RESP 14–33; TEMP 35.8–36.9; O2SAT 95–100
[2024-12-06] MEDS: VANCOMYCIN 1,500 MG/NS 500 ML 1,500 MG/500 ML BAG 250 MG IVPB (00:40)
[2024-12-06] MEDS: NOREPINEPHRINE 8 MG/D5W 250 ML 8 MG/250 ML BAG 16.88 MG IV CONT (00:43)
[2024-12-06] MEDS: IPRATROPIUM 0.5 MG/ALBUTEROL SULFATE 2.5 MG AMPUL.NEB 3 ML INHALATION (02:05)
[2024-12-06 04:56] LABS: Hematocrit 44.9 % (37.0-47.0); Hemoglobin 14.3 g/dL (12.0-15.0); Mean Corpuscular HGB Conc 31.8 g/dl (32-36); Mean Corpuscular Hemoglobin 28.7 pg (26-34); Mean Platelet Volume 8.9 fl (7.4-10.4); Platelet Count Result 204 k/mm3 (150-375); Red Blood Count 4.99 M/mm3 (4.2-5.4); White Blood Count 9.5 K/mm3 (4.5-10.0)
[2024-12-06 05:05] LABS: Creatinine Urine 108.9 mg/dL; Total Protein Urine Random 98 mg/dL
[2024-12-06 05:07] LABS: Eosinophil Urine None Seen % (None Seen); Urine Eos QC 2nd Tech Confirmed
[2024-12-06 05:08] LABS: Alanine Aminotransferase 245 U/L (6-35); Albumin Level 3.1 g/dL (3.5-5.1); Alkaline Phosphatase 112 U/L (38-126); Anion Gap 13 mmol/L (4-12); Aspartate Amino Transferase 664 U/L (14-36); Blood Urea Nitrogen 41 mg/dL (7-17); Carbon Dioxide 19 mmol/L (22-30); Chloride 95 mmol/L (98-107); Creatine Kinase 142 U/L (30-135); Estimated CRCL calculation 22 ml/min; Estimated Glomerular Filt Rate 17; Glucose 108 mg/dL (65-110); Phosphorus 5.2 mg/dL (2.5-4.5); Potassium 3.2 mmol/L (3.4-5.0); Sodium 127 mmol/L (137-145); Total Protein 6.5 g/dL (6.3-8.2); Urea Random Urine 273 MG/DL
[2024-12-06] MEDS: AMIODARONE 360 MG/D5W 200 ML 360 MG/200 ML BAG 16.67 MG IV CONT (06:16)
[2024-12-06] MEDS: CENTRAL LINE FLUSH 10 ML IV PUSH ×3 (06:26→21:25)
[2024-12-06] MEDS: FLUTICASONE/SALMETEROL 115-21 MCG INHALER 1 PUFF 2 PUFF INHALATION ×2 (08:58→20:27)
[2024-12-06] MEDS: POTASSIUM BICARBONATE 25 MEQ TABEF 50 MEQ PO (09:08)
[2024-12-06] MEDS: ALBUMIN HUMAN 25% 25 GM/100 ML 100 ML IVPB ×2 (09:08→17:00)
[2024-12-06] MEDS: HEPARIN SOD/D5W 100 UNITS/ML 25,000 UNITS/250 ML BAG 12 UNITS IV CONT (09:08)
[2024-12-06] MEDS: DOBUTamine 250 MG/D5W 250 ML 250 MG/250 ML BAG 15.15 MG IV CONT (09:09)
[2024-12-06] MEDS: ATORVASTATIN 20 MG TABLET PO (09:09)
[2024-12-06 09:33] LABS: INR 2.3; Prothrombin Time 25.1 Seconds (11.1-14.7)
[2024-12-06 09:34] LABS: Partial Thromboplastin Time 42.3 Seconds (22.3-36.8)
--- NOTE | 2024-12-06 09:49 | P.PNINT_ITS ---
Progress Note: A&P Assessment and Plan (1) Shortness of breath: Code(s): R06.02 - Shortness of breath Status: Acute Assessment and Plan: Patient presented with shortness of breath without history of fever and dry cough Likely secondary to congestive heart failure and presented with AFib with RVR. She but she is only on 2 L nasal cannula which is her home oxygen She does not appear in any respiratory distress. Exam as above Chest x-ray showed air bronchograms in left superior hilum suggestive of early infiltrate. She has normal WBC and is afebrile. She was started on empiric antibiotics. But her procalcitonin level was low and CT scan did not show any infiltrates or findings suggestive of pneumonia Discontinue antibiotic Continue Lasix and increase to b.i.d.. Add albumin See below (2) Acute exacerbation of CHF (congestive heart failure): Code(s): I50.9 - Heart failure, unspecified Status: Acute Assessment and Plan: Patient has history of congestive heart failure. Echo in 2020 showed EF 20-25% she had a recent echocardiogram which showed 10% EF. Echo on this hospitalization ordered and pending. She had a negative cardiac catheterization as per Cardiology records Cardiology follow Echo pending Discussed with Cardiology and will start patient on dobutamine for post to inotropic effect to allow diuresis in light of kidney injury Lasix and albumin (3) Non-ST elevation IN (NSTEMI): Code(s): I21.4 - Non-ST elevation (NSTEMI) myocardial infarction Status: Acute Assessment and Plan: Mild elevation in troponin with no chest pain. EKG reviewed Patient presented with AFib with RVR As per Cardiology recurrence patient had a cardiac catheterization in recent past which was negative any coronary disease Patient has not been on anticoagulation as an outpatient due to history of frequent and significant nose bleeds. Patient will be started on heparin drip at this time for AFib with RVR and closely monitor Continue statin Not on beta-saba Rian or ARB due to low blood pressure and elevated creatinine (4) Pneumonia: Code(s): J18.9 - Pneumonia, unspecified organism Status: Acute Assessment and Plan: See above (5) Hyperlipidemia: Code(s): E78.5 - Hyperlipidemia, unspecified Status: Acute Assessment and Plan: Continue atorvastatin (6) Elevated serum creatinine: Code(s): R79.89 - Other specified abnormal findings of blood chemistry Status: Acute Assessment and Plan: Last recorded creatinine was 1.5 in 2022 presented with creatinine of 2.66. Two weeks ago creatinine was 2.18 I suspect patient has chronic kidney disease and may have acute kidney injury Check renal ultrasound showed medical renal disease CK minimally elevated Betts and accurate I&Os Nephrology evaluated the patient and following will defer further workup for renal failure to Nephrology Continue Lasix for volume overload. Will order PND Lasix with albumin Monitor urine output electrolytes and creatinine (7) Lower extremity edema: Code(s): R60.0 - Localized edema Status: Acute Assessment and Plan: Likely secondary to congestive heart failure and kidney dysfunction Diuresis as above Lower extremity Dopplers negative for DVT (8) Atrial fibrillation with RVR: Code(s): I48.91 - Unspecified atrial fibrillation Status: Acute Assessment and Plan: Presented with AFib with RVR. Not on any antiplatelet or anticoagulation as an outpatient Patient was started on amiodarone infusion at the time of admission as patient blood pressure was low for rate control Echo ordered and pain Patient does not take aspirin due to history of allergy. Patient states that she used to be on Eliquis in the past but it was discontinued due to frequent severe nosebleed Discussed with spinner box and she recommends starting anticoagulation. I spoke to patient and discussed risks and benefits. We has decided to start with trial of heparin infusion to see if patient tolerates without any complications. Amiodarone will be discontinued as patient has converted to sinus rhythm Echocardiogram is pending Plan DVT prophylaxis -heparin insert Stress ulcer prophylaxis - NA Nutrition -diet ordered Code Status -patient wishes to be DNR DNI she does not want to go on a ventilator or receive CPR in the event of cardiac arrest. She states she does not have any family member in town. She is single and has been estranged from her children. Most of her relatives live in [place] Total Critical Care Time - 30 minutes Due to a high probability of clinically significant, life threatening deterioration, the patient required my highest level of preparedness to intervene emergently and I personally spent this critical care time directly and personally managing the patient. This critical care time included obtaining a history; examining the patient; pulse oximetry; ordering and review of studies; arranging urgent treatment with development of a management plan; evaluation of patient's response to treatment; frequent reassessment; and discussions with other providers. It was exclusive of separately billable procedures and treating other patients and teaching time. Please see Assessment and Plan section and the rest of the note for further information on patient assessment and treatment Subjective Date/time seen: 12/06/24 Patient states she feels better today as compared to yesterday. Her breathing is easier. She denies any pain nausea vomiting or belly pain. Swelling of the legs persist. Her urine output has slightly improved overnight. She is still on 2 L nasal cannula. She was started on Levophed yesterday which she stays on and continues to be on at 12 mics at this time. She is afebrile All other systems were reviewed and were negative Review of Systems Review of Systems: All systems reviewed & are unremarkable except as noted in HPI and below (HPI) Exam Narrative: General: Pt is alert awake and in NAD Lungs/Chest: Trachea central Clear BS B/L, crackles at the bases right more than left. No respiratory distress, no use of accessory muscles, no significant wheezing Cardiac: Irregular rate and rhythm Normal S1 S2. No murmurs Circulation: Pedal pulses are intact and symmetrical. Abdomen: Normal bowel sounds.. Soft. NT. ND. Extremities: Bilateral pitting edema present :. Betts catheter in place Neurologic: Follows commands. Moves all 4 extremities PERRL AO x3 Skin: Intertrigo in the inguinal folds Objective Data Vital Signs Vital Signs: Vital Signs - 24 hr 12/05/24 10:00 12/05/24 10:00 12/05/24 10:00 Temperature 36.4 C L Pulse Rate 94 94 91 Respiratory Rate 22 H Blood Pressure 66/53 L 66/53 L Pulse Oximetry 96 Oxygen Delivery Oxygen Flow Rate 12/05/24 10:21 12/05/24 12:00 12/05/24 12:00 Temperature Pulse Rate 96 95 95 Respiratory Rate Blood Pressure 66/53 L 73/37 L 73/37 L Pulse Oximetry Oxygen Delivery Oxygen Flow Rate 12/05/24 12:00 12/05/24 12:00 12/05/24 12:00 Temperature 35.8 C L Pulse Rate 94 101 H 101 H Respiratory Rate 25 H 29 H Blood Pressure 73/57 L Pulse Oximetry 100 100 Oxygen Delivery Nasal Cannula Oxygen Flow Rate 2 12/05/24 12:15 12/05/24 14:00 12/05/24 14:00 Temperature 36.3 C L Pulse Rate 92 98 98 Respiratory Rate 27 H Blood Pressure 88/56 L 102/76 102/76 Pulse Oximetry 97 Oxygen Delivery Oxygen Flow Rate 12/05/24 14:01 12/05/24 15:14 12/05/24 15:14 Temperature Pulse Rate 98 95 Respiratory Rate 24 H Blood Pressure 70/45 L Pulse Oximetry 98 Oxygen Delivery Nasal Cannula Oxygen Flow Rate 2 12/05/24 16:00 12/05/24 16:00 12/05/24 16:00 Temperature 37.2 C Pulse Rate 95 97 96 Respiratory Rate 20 26 H Blood Pressure 97/64 L 97/64 L Pulse Oximetry 100 99 Oxygen Delivery Nasal Cannula Oxygen Flow Rate 2 12/05/24 16:00 12/05/24 16:00 12/05/24 16:52 Temperature Pulse Rate 93 95 95 Respiratory Rate Blood Pressure 94/64 L 95/76 L Pulse Oximetry Oxygen Delivery Oxygen Flow Rate 12/05/24 16:52 12/05/24 18:00 12/05/24 18:00 Temperature 37.0 C Pulse Rate 95 100 92 Respiratory Rate 24 H Blood Pressure 95/76 L 94/70 L 94/70 L Pulse Oximetry 97 Oxygen Delivery Oxygen Flow Rate 12/05/24 18:00 12/05/24 19:00 12/05/24 20:00 Temperature Pulse Rate 92 92 98 Respiratory Rate Blood Pressure 94/70 L 89/62 L Pulse Oximetry Oxygen Delivery Oxygen Flow Rate 12/05/24 20:00 12/05/24 20:00 12/05/24 20:00 Temperature 36.4 C Pulse Rate 98 98 94 Respiratory Rate 18 24 H Blood Pressure 85/51 L 85/51 L Pulse Oximetry 99 99 Oxygen Delivery Nasal Cannula Oxygen Flow Rate 2 12/05/24 20:00 12/05/24 20:02 12/05/24 20:02 Temperature Pulse Rate 94 94 Respiratory Rate 23 H Blood Pressure 85/51 L Pulse Oximetry 99 Oxygen Delivery Nasal Cannula Oxygen Flow Rate 2 12/05/24 20:15 12/05/24 22:00 12/05/24 22:00 Temperature Pulse Rate 105 H 94 99 Respiratory Rate 24 H 24 H Blood Pressure 85/51 L 85/51 L Pulse Oximetry 100 Oxygen Delivery Oxygen Flow Rate 12/05/24 22:00 12/05/24 23:34 12/06/24 00:00 Temperature Pulse Rate 94 99 99 Respiratory Rate 18 Blood Pressure 85/51 L 85/51 L Pulse Oximetry 99 Oxygen Delivery Nasal Cannula Oxygen Flow Rate 2 12/06/24 00:00 12/06/24 00:00 12/06/24 00:00 Temperature 36.2 C L Pulse Rate 99 88 88 Respiratory Rate 20 Blood Pressure 85/51 L 78/62 L Pulse Oximetry 99 Oxygen Delivery Oxygen Flow Rate 12/06/24 00:43 12/06/24 00:43 12/06/24 01:56 Temperature Pulse Rate 99 99 82 Respiratory Rate 21 H Blood Pressure 78/62 L 85/51 L 93/66 L Pulse Oximetry 100 Oxygen Delivery Oxygen Flow Rate 12/06/24 02:00 12/06/24 02:00 12/06/24 02:05 Temperature Pulse Rate 74 85 82 Respiratory Rate 22 H Blood Pressure 95/61 L 78/62 L Pulse Oximetry Oxygen Delivery Oxygen Flow Rate 12/06/24 02:14 12/06/24 03:56 12/06/24 03:58 Temperature 36.1 C L Pulse Rate 87 83 90 Respiratory Rate 22 H 18 16 Blood Pressure 101/74 Pulse Oximetry 100 100 Oxygen Delivery Nasal Cannula Oxygen Flow Rate 2 12/06/24 04:00 12/06/24 04:00 12/06/24 04:00 Temperature Pulse Rate 86 74 76 Respiratory Rate Blood Pressure 95/61 L 95/61 L Pulse Oximetry Oxygen Delivery Oxygen Flow Rate 12/06/24 04:53 12/06/24 06:00 12/06/24 06:00 Temperature Pulse Rate 76 74 74 Respiratory Rate 16 Blood Pressure 95/61 L Pulse Oximetry 99 Oxygen Delivery Oxygen Flow Rate 12/06/24 06:00 12/06/24 06:16 12/06/24 07:31 Temperature 35.8 C L Pulse Rate 76 76 81 Respiratory Rate 14 Blood Pressure 95/61 L 91/40 L Pulse Oximetry 98 Oxygen Delivery Oxygen Flow Rate 12/06/24 07:32 12/06/24 08:07 12/06/24 08:59 Temperature Pulse Rate 89 97 89 Respiratory Rate 20 19 Blood Pressure 91/40 L Pulse Oximetry 96 Oxygen Delivery Nasal Cannula Oxygen Flow Rate 2 12/06/24 09:09 12/06/24 09:11 Temperature Pulse Rate 92 88 Respiratory Rate Blood Pressure 103/78 Pulse Oximetry Oxygen Delivery Oxygen Flow Rate Intake/Output Intake/Output: Intake & Output 12/03/24 12/04/24 12/05/24 12/06/24 23:59 23:59 23:59 23:59 Intake Total 100 1584.9 1274.4 Output Total 450 200 Balance 100 1134.9 1074.4 Meds/Results Medications: Active Medications Generic Name Dose Route Start Last Admin Trade Name Freq PRN Reason Stop Dose Admin Acetaminophen 650 mg 12/04/24 22:10 Acetaminophen 325 Mg Tablet PO Q4H PRN Mild Pain (1-3) or Fever Hydrocodone Bitart/Acetaminophen 1 tab 12/05/24 01:36 12/05/24 20:36 Hydrocodone/Acetaminophen (*Crx) 5-325 Mg Tablet PO 1 tab Q8H PRN Administration pain 7-10 Albuterol/Ipratropium 3 ml 12/06/24 08:00 Ipratropium 0.5 Mg/Albuterol Sulfate 2.5 Mg Ampul.Neb 3 Ml INHALATION Q6HRT PRN wheezine Atorvastatin Calcium 20 mg 12/05/24 09:00 12/06/24 09:09 Atorvastatin 20 Mg Tablet PO 20 mg DAILY KRISTEN Administration Furosemide 80 mg 12/06/24 09:00 Furosemide Inj 100 Mg/10 Ml Vial IV PUSH BID KRISETN Heparin Sodium (Porcine) 5,500 units 12/06/24 07:53 Heparin Sodium 5,000 Units/Ml Vial IV PUSH PRN PRN aPTT less than 55 seconds Heparin Sodium (Porcine) 3,000 units 12/06/24 07:53 Heparin Sodium 5,000 Units/Ml Vial IV PUSH PRN PRN aPTT 55 - 70 seconds Hydrocortisone Sodium Succinate 100 mg 12/06/24 14:00 Hydrocortisone Sodium Succinate 100 Mg/2 Ml Vial IV PUSH Q8HR KRISTEN Norepinephrine Bitartrate 8 mg in 250 mls @ 22.5 mls/hr 12/05/24 09:25 12/06/24 07:32 Levophed 8 Mg/D5w 250 Ml IV CONT 12 mcg/min .[id number] KRISTEN 22.5 mls/hr Titration Protocol 12 MCG/MIN Heparin Sodium/Dextrose 25,000 units in 250 mls @ 12 mls/hr 12/06/24 08:15 12/06/24 09:08 Heparin Sodium/D5w 100 Units/Ml IV CONT 1,200 units/hr .[id number] KRISTEN 12 mls/hr Administration Protocol 1,200 UNITS/HR Dobutamine HCl/Dextrose 250 mg in 250 mls @ 15.15 mls/hr 12/06/24 07:55 12/06/24 09:09 Dobutamine 250 Mg/D5w 250 Ml IV CONT 2.5 mcg/kg/min .[id number] KRISTEN 15.15 mls/hr Administration 2.5 MCG/KG/MIN Albumin Human 100 mls @ 60 mls/hr 12/06/24 09:00 12/06/24 09:08 Albutein IVPB 60 mls/hr BID KRISTEN Administration Potassium Bicarbonate 25 meq 12/06/24 13:00 Potassium Bicarbonate 25 Meq Tabef PO 12/06/24 13:01 ONCE ONE Fluticasone/Salmeterol 2 puff 12/05/24 08:00 12/06/24 08:58 Fluticasone/Salmeterol 115-21 Mcg Inhaler 1 Puff INHALATION 2 puff Q12HRT KRISTEN Administration Sodium Chloride 10 ml 12/05/24 14:00 12/06/24 06:26 Central Line Flush IV PUSH 10 ml Q8HR KRISTEN Administration Sodium Chloride 10 ml 12/05/24 11:12 Central Line Flush IV PUSH PRN PRN with TPN bag changes Sodium Chloride 20 ml 12/05/24 11:12 Central Line Flush IV PUSH PRN PRN after blood draws Radiology Results: ITS Impressions Chest X-Ray 12/05/24 11:31 IMPRESSION: No acute cardiopulmonary pathology. Renal Ultrasound 12/05/24 15:17 IMPRESSION: No hydronephrosis or renal calculi. Findings suggesting medical renal disease. Chest CT 12/05/24 15:24 IMPRESSION: Findings consistent with pulmonary edema with a small right-sided pleural effusion. Additional findings worrisome for pulmonary hypertension, as detailed above. Trace anasarca. Intra-abdominal ascites Venous Doppler Study 12/05/24 16:06 IMPRESSION: Negative bilateral lower extremity venous US. No deep vein thrombosis. Labs Labs: Laboratory Results - last 24 hr 12/05/24 12/05/24 12/06/24 14:03 22:32 04:38 WBC 9.5 RBC 4.99 Hgb 14.3 Hct 44.9 MCV 90.0 MCH 28.7 MCHC 31.8 L RDW 16.0 H Plt Count 204 MPV 8.9 Sodium 127 L Potassium 3.2 L Chloride 95 L Carbon Dioxide 19 L Anion Gap 13 H BUN 41 H Creatinine 2.82 H Estim Creat Clear Calc 22 Estimated GFR 17 L Glucose 108 Calcium 9.0 Phosphorus 5.2 H Magnesium 2.0 Total Bilirubin 3.0 H AST 664 H ALT 245 H Alkaline Phosphatase 112 Total Creatine Kinase 142 H Total Protein 6.5 Albumin 3.1 L Random Cortisol 12.00 Urine Color Dark yellow Urine Appearance Cloudy H Urine pH 5.0 Ur Specific [place] 1.014 Urine Protein 3+ H Urine Glucose (UA) Negative Urine Ketones Negative Ur Blood (Man) Negative Urine Nitrate Negative Urine Bilirubin 1+ H Urine Urobilinogen 2.0 H Leukocyte Esterase Rfl Negative Urine RBC 0-2 Urine WBC 0-5 Ur Squamous Epith Cells None seen Urine Bacteria None seen Urine Casts 3-5 Urine Eosinophils None seen U Random Total Protein 98 Ur Random Urea 273 Urine Creatinine 108.3 108.9 Protein/Creat Ratio 2 0.90 H Vancomycin Trough 15.2 Quality VTE Prophylaxis VTE prophylaxis: pharmacologic ordered
[2024-12-06] MEDS: FUROSEMIDE INJ 100 MG/10 ML VIAL 80 MG IV PUSH ×2 (10:15→18:00)
--- NOTE | 2024-12-06 10:40 | P.PNNP_ITS ---
Progress Note: A&P Assessment and Plan (1) Acute kidney injury: Code(s): N17.9 - Acute kidney failure, unspecified Status: Acute Assessment and Plan: * as noted on admission - creatinine 2.66mg/dl * suspect multifactorial: * hemodynamic instability/relative hypotension * decompensated heart failure * use of ARB and diuretics prior to admission * Afib with RVR * infection -- less likely * other (?) * evaluation to date noted: * renal ultrasound with medical renal disease * urine electrolytes prerenal (indicative of depressed EF given volume overloaded state) * urine eosinophils negative * CPK mildly elevated (but not enough to affect kidney function) * moderate proteinuria (~ 900mg) * suspect due to cardiorenal syndrome worsened by hemodynamic instability/severe hypotension * remains at risk for [employer]/dialysis if she fails to improve with current interventions (but her suboptimal hemodynamics would make conventional HD difficult -- would probably need CRRT if dialytic support needed) * follow repeat labs and UOP (2) Stage 3b chronic kidney disease: Code(s): N18.32 - Chronic kidney disease, stage 3b Status: Acute Assessment and Plan: * creatinine running around 1.60 - 1.75mg/dl during September 2024 hospitalization at [facility] * earlier this month creatinine was noted to be 2.18mg/dl * creatinine in September 2023 was running 1.2 - 1.3mg/dl * suspect underlying CKD due cardiorenal syndrome given depressed EF/cardiomyopathy (3) Shortness of breath: Code(s): R06.02 - Shortness of breath Status: Acute Assessment and Plan: * due to several issues: * volume overload * acute on chronic CHF/cardiomyopathy * atrial fibrillation with RVR * possible pneumonia (less likely) * other (?) * no evidence of respiratory distress * on home oxygen requirements * CT of chest without infiltrates or pneumonia; evidence of pulmonary edema noted * antibiotics dc'd * continue attempts at diuresis * follow respiratory status (4) Acute on chronic systolic heart failure: Code(s): I50.23 - Acute on chronic systolic (congestive) heart failure Status: Acute Assessment and Plan: * as suggested by imaging, labs, and exam * last Echo (09/27/24) at [facility] noted: * ejection fraction is visually estimated to be 10-15% * diastolic function E to E' ratio is >15 suggesting a high pulminary wedge pressure and LV diastolic dysfunction * no obvious thrombus noted * mildly dilated right and left atrium. * mild tricuspid regurgitation * estimated right ventricular systolic pressure is 33 mmHg * IVC is dilated * estimated RA pressure is 8 mmHg * normal cardiac catheterization noted (September 2024) * institution of GMDT was limited by hypotension during September 2024 hospitalization * Cardiology following * repeat Echo ordered * started on dobutamine + IV diuretics along with IV albumin (5) Hypotension: Code(s): I95.9 - Hypotension, unspecified Status: Acute Assessment and Plan: * as noted since admission * probably related to severity of her cardiomyopathy... * on levophed * dobutamine gtt added * follow trend of hemodynamics (6) Hyponatremia: Code(s): E87.1 - Hypo-osmolality and hyponatremia Status: Acute Assessment and Plan: * presumably related to chronic CHF along with SANDRA/CKD and hypervolemia * sodium was running around 133 - 137 during September 2024 hospitalization at [facility] * evaluation noted: * TSH okay * cortisol reasonable * urine electrolytes noted * SPEP/UPEP and serum/urine osmolality pending * follow trend of repeat sodiums (7) Atrial fibrillation with RVR: Code(s): I48.91 - Unspecified atrial fibrillation Status: Acute Assessment and Plan: * converted to NSR * off amiodarone gtt at this time * repeat Echo ordered * Cardiology following * already anticoagulated (as noted by INR) (8) Lower extremity edema: Code(s): R60.0 - Localized edema Status: Acute Assessment and Plan: * localized to her lower extremities * likely a manifestation of chronic CHF and current SANDRA on CKD * lower extremity dopplers ordered * diuresis as tolerated * consider DARRYL-wraps/compression stocking and LE elevation Will continue to follow. L Subjective Date/time seen: 12/06/24 10:40 Interval history: Follow- up for acute kidney injury/acute renal failure on chronic kidney disease. Renal function/creatinine a bit worse but urine output was slightly better overnight -- breathing seems stable if not a bit better although no significant change in lower extremity swelling/edema; initiated on vasopressor therapy yesterday due to ongoing issues with hypotension; dobutamine gtt + IV lasix initiated due to ongoing evidence of volume overload in the context of her severe cardiomyopathy. Exam 2 Narrative: General: WD/WN female in NAD Heart: normal S1 and S2; no rub Lungs: coarse with bibasilar crackles Abdomen: soft, nontender, nondistended, positive bowel sounds Extremities: no cyanosis or clubbing; 1 - 2+ edema Skin: warm and dry Objective Data Vital Signs Vital Signs: Vital Signs Temp Pulse Resp BP Pulse Ox O2 Del Method O2 Flow Rate 12/06/24 10:00 86 86/60 L 12/06/24 10:00 87 12/06/24 10:00 92 26 H 101/51 L 98 12/06/24 09:11 88 12/06/24 09:09 92 103/78 12/06/24 08:59 89 19 12/06/24 08:07 97 20 96 Nasal Cannula 2 12/06/24 08:00 97 103/71 12/06/24 08:00 90 12/06/24 08:00 98 Nasal Cannula 2 12/06/24 07:32 89 91/40 L 12/06/24 07:31 96.5 F L 81 14 91/40 L 98 12/06/24 06:16 76 12/06/24 06:00 76 95/61 L 12/06/24 06:00 74 16 95/61 L 99 12/06/24 06:00 74 12/06/24 04:53 76 12/06/24 04:00 76 95/61 L 12/06/24 04:00 74 95/61 L 12/06/24 04:00 86 12/06/24 03:58 97 F L 90 16 101/74 100 12/06/24 03:56 83 18 100 Nasal Cannula 2 12/06/24 02:14 87 22 H 12/06/24 02:05 82 22 H 12/06/24 02:00 85 78/62 L 12/06/24 02:00 74 95/61 L 12/06/24 01:56 82 21 H 93/66 L 100 12/06/24 00:43 99 85/51 L 12/06/24 00:43 99 78/62 L 12/06/24 00:00 97.1 F L 88 20 78/62 L 99 12/06/24 00:00 88 12/06/24 00:00 99 85/51 L 12/06/24 00:00 99 85/51 L 12/05/24 23:34 99 18 99 Nasal Cannula 2 12/05/24 22:00 94 85/51 L 12/05/24 22:00 99 85/51 L 12/05/24 22:00 94 24 H 85/51 L 100 12/05/24 20:15 105 H 24 H 12/05/24 20:02 99 Nasal Cannula 2 12/05/24 20:02 94 23 H 12/05/24 20:00 94 85/51 L 12/05/24 20:00 94 85/51 L 12/05/24 20:00 97.6 F 98 24 H 85/51 L 99 12/05/24 20:00 98 18 99 Nasal Cannula 2 12/05/24 20:00 98 12/05/24 19:00 92 89/62 L 12/05/24 18:00 92 94/70 L 12/05/24 18:00 92 94/70 L 12/05/24 18:00 98.6 F 100 24 H 94/70 L 97 Intake/Output Intake/Output: Intake & Output 12/03/24 12/04/24 12/05/24 12/06/24 23:59 23:59 23:59 23:59 Intake Total 100 1584.9 1786.4 Output Total 450 200 Balance 100 1134.9 1586.4 Meds/Results Medications: Active Medications Generic Name Dose Route Start Last Admin Trade Name Freq PRN Reason Stop Dose Admin Acetaminophen 650 mg 12/04/24 22:10 Acetaminophen 325 Mg Tablet PO Q4H PRN Mild Pain (1-3) or Fever Hydrocodone Bitart/Acetaminophen 1 tab 12/05/24 01:36 12/05/24 20:36 Hydrocodone/Acetaminophen (*Crx) 5-325 Mg Tablet PO 1 tab Q8H PRN Administration pain 7-10 Albuterol/Ipratropium 3 ml 12/06/24 08:00 Ipratropium 0.5 Mg/Albuterol Sulfate 2.5 Mg Ampul.Neb 3 Ml INHALATION Q6HRT PRN wheezine Atorvastatin Calcium 20 mg 12/05/24 09:00 12/06/24 09:09 Atorvastatin 20 Mg Tablet PO 20 mg DAILY KRISTEN Administration Furosemide 80 mg 12/06/24 09:00 12/06/24 10:15 Furosemide Inj 100 Mg/10 Ml Vial IV PUSH 80 mg BID KRISTEN Administration Heparin Sodium (Porcine) 5,500 units 12/06/24 07:53 Heparin Sodium 5,000 Units/Ml Vial IV PUSH PRN PRN aPTT less than 55 seconds Heparin Sodium (Porcine) 3,000 units 12/06/24 07:53 Heparin Sodium 5,000 Units/Ml Vial IV PUSH PRN PRN aPTT 55 - 70 seconds Hydrocortisone Sodium Succinate 100 mg 12/06/24 14:00 12/06/24 13:59 Hydrocortisone Sodium Succinate 100 Mg/2 Ml Vial IV PUSH 100 mg Q8HR KRISTEN Administration Norepinephrine Bitartrate 8 mg in 250 mls @ 22.5 mls/hr 12/05/24 09:25 12/06/24 13:59 Levophed 8 Mg/D5w 250 Ml IV CONT 12 mcg/min .Q11H7M KRISTEN 22.5 mls/hr Administration Protocol 12 MCG/MIN Heparin Sodium/Dextrose 25,000 units in 250 mls @ 0 mls/hr 12/06/24 08:15 12/06/24 16:25 Heparin Sodium/D5w 100 Units/Ml IV CONT 0 units/hr .Q0M KRISTEN 0 mls/hr Titration Protocol 0 UNITS/HR Dobutamine HCl/Dextrose 250 mg in 250 mls @ 15.15 mls/hr 12/06/24 07:55 12/06/24 09:09 Dobutamine 250 Mg/D5w 250 Ml IV CONT 2.5 mcg/kg/min .[id number] KRISTEN 15.15 mls/hr Administration 2.5 MCG/KG/MIN Albumin Human 100 mls @ 60 mls/hr 12/06/24 09:00 12/06/24 10:49 Albutein IVPB Infused BID KRISTEN Infusion Fluticasone/Salmeterol 2 puff 12/05/24 08:00 12/06/24 08:58 Fluticasone/Salmeterol 115-21 Mcg Inhaler 1 Puff INHALATION 2 puff Q12HRT KRISTEN Administration Sodium Chloride 10 ml 12/05/24 14:00 12/06/24 13:48 Central Line Flush IV PUSH 10 ml Q8HR KRISTEN Administration Sodium Chloride 10 ml 12/05/24 11:12 Central Line Flush IV PUSH PRN PRN with TPN bag changes Sodium Chloride 20 ml 12/05/24 11:12 Central Line Flush IV PUSH PRN PRN after blood draws Radiology Results: ITS Impressions Chest X-Ray 12/05/24 11:31 IMPRESSION: No acute cardiopulmonary pathology. Renal Ultrasound 12/05/24 15:17 IMPRESSION: No hydronephrosis or renal calculi. Findings suggesting medical renal disease. Chest CT 12/05/24 15:24 IMPRESSION: Findings consistent with pulmonary edema with a small right-sided pleural effusion. Additional findings worrisome for pulmonary hypertension, as detailed above. Trace anasarca. Intra-abdominal ascites Venous Doppler Study 12/05/24 16:06 IMPRESSION: Negative bilateral lower extremity venous US. No deep vein thrombosis. Labs Labs: Laboratory Tests 12/06/24 04:38 12/06/24 04:38 Calcium 9.0 Phosphorus 5.2 H Magnesium 2.0 Total Bilirubin 3.0 H AST 664 H ALT 245 H Alkaline Phosphatase 112 Total Creatine Kinase 142 H Microbiology 12/04/24 22:40 Blood Blood Culture - Preliminary 12/04/24 22:40 Blood Blood Culture - Preliminary
--- NOTE | 2024-12-06 11:10 | PM.PNCARD ---
Progress Note: A&P Assessment and Plan (1) Acute on chronic systolic heart failure: Code(s): I50.23 - Acute on chronic systolic (congestive) heart failure Status: Acute (2) Elevated troponin: Code(s): R77.8 - Other specified abnormalities of plasma proteins Status: Acute (3) Atrial fibrillation with RVR: Code(s): I48.91 - Unspecified atrial fibrillation Status: Acute (4) Hyperlipidemia: Code(s): E78.5 - Hyperlipidemia, unspecified Status: Acute (5) Acute kidney injury: Code(s): N17.9 - Acute kidney failure, unspecified Status: Acute (6) Stage 3b chronic kidney disease: Code(s): N18.32 - Chronic kidney disease, stage 3b Status: Acute (7) Asthma with exacerbation: Qualifiers: Asthma persistence: unspecified Asthma severity: unspecified severity Qualified Code(s): J45.901 - Unspecified asthma with (acute) exacerbation Code(s): J45.901 - Unspecified asthma with (acute) exacerbation Status: Resolved (8) Pneumonia: Code(s): J18.9 - Pneumonia, unspecified organism Status: Acute Plan 54-year-old female with history of paroxysmal atrial fibrillation (paroxysmal AFib noticed on device interrogation was very brief and so she was taken off Eliquis by EP due to very low burden of AFib, also patient had significant nosebleeds), hyperlipidemia, hypertension, chronic systolic congestive heart failure (TTE in September 2024 showed LVEF of 10-15%, mild tricuspid regurgitation; TTE in September 2023 showed LVEF of 20-25%) status post AICD, history of VT, vitamin-D deficiency, osteoarthritis, chronic back pain, asthma on 2 L oxygen at home with -Acute on chronic systolic heart failure with LVEF 10-15% by echo in September 2024 -Nonischemic cardiomyopathy; cardiac catheterization in 2021 showed no CAD -AFib with RVR-converted to sinus rhythm with amiodarone; not on anticoagulation due to low burden of AFib and history of nose bleeds -Elevated troponin (0.100, 0.119) without chest pain-most likely demand ischemia secondary to acute on chronic heart failure and a flutter with RVR -Hypertension but now hypotensive at presentation with SBP in the 90s and the blood pressure continues to remain soft with SBP in the 100 -Asthma exacerbation -SANDRA on CKD Plan: -Patient has significant fluid overload with rales on exam of lungs, 3+ pitting lower extremity edema and unable to diurese much due to soft blood pressures. Her LVEF by echo in September 2024 was only 10-15%. She also has end-organ damage from heart failure (SANDRA, elevated troponin). Recommend inotrope assisted diuresis with IV dobutamine and Lasix drips -Monitor daily weight, ins and outs, renal function -Check and replace electrolytes to keep potassium greater than 4 and magnesium greater than 2 -With regards to atrial fibrillation she has low burden in the past and history of nose bleeds due to which she was taken off anticoagulation. However she is going in and out of atrial fibrillation while acutely admitted in the hospital. Recommend starting heparin drip to reduce risk of stroke -Amiodarone has been discontinued after she converted back to sinus rhythm. Unable to add beta-saba for rate control due to soft blood pressure. If she reverts back to AFib with RVR then management options include restarting amiodarone versus CARMEL guided cardioversion -Since she is unable to take chronic anticoagulation due to nosebleeds she may be a candidate for [facility]. Will schedule an outpatient follow-up to discuss this after she recovers from her acute illness -discussed above plan with Dr. Claire baca, ICU attending. Management of other medical problems per ICU team -Poor overall prognosis Subjective Date/time seen: 12/06/24 11:10 Interval history: Reason for encounter: AFib with RVR, acute on chronic systolic heart failure Relevant history:54-year-old female with history of paroxysmal atrial fibrillation (paroxysmal AFib noticed on device interrogation was very brief and so she was taken off Eliquis by EP due to very low burden of AFib, also patient had significant nosebleeds), hyperlipidemia, hypertension, chronic systolic congestive heart failure, nonischemic cardiomyopathy (TTE in September 2024 showed LVEF of 10-15%, mild tricuspid regurgitation; TTE in September 2023 showed LVEF of 20-25%) status post AICD, history of VT, vitamin-D deficiency, osteoarthritis, chronic back pain, asthma on 2 L oxygen at home presented with chief complaints of worsening shortness of breath and lower extremity swelling. In the ER she was tachycardic with heart rate in the 120s and had soft blood pressures with SBP in the 90. EKG showed a flutter/tachycardia with rate in the 130s, ventricular paced complexes and fusion complex, left bundle branch block. Amiodarone bolus was administered and a drip started. She converted back to sinus rhythm with amiodarone. Cardiology was consulted for further recommendations. Workup: Sodium: 127 Creatinine: 2.6 Lactate: 4.5 Troponin: 0.100, 0.119 BNP: >30,000 EKG: A flutter/tachycardia with RVR, rate in the 130s, ventricular paced complexes and fusion complex present, left bundle branch Lower extremity venous Doppler: Negative for DVT Chest x-ray: Air bronchograms within the left superior hilum suspicious for an early infiltrate CT chest: Findings consistent with pulmonary edema with a small right-sided pleural effusion. Additional findings worrisome for pulmonary hypertension. Trace anasarca. Intra-abdominal ascites Cardiac catheterization in 2021: No CAD Interval history: Patient reports improvement in breathing P she continues to have significant swelling in her lower extremities. No chest pain, palpitations, dizziness. Telemetry shows sinus tachycardia. Review of Systems Cardiovascular: Comments: As mentioned in HPI Respiratory: Comments: As mentioned in the HPI Exam Narrative: General: Alert oriented x3, no acute distress Neck: Supple, JVD + Chest: Bibasilar rales, no rhonchi Cardiac: S1, S2 +, regular rate, regular rhythm, no murmurs or rubs Extremities: Bilateral lower extremity edema 3+, no skin rash Neurologic: Alert and oriented x3, no focal neurological deficits Objective Data Vital Signs Vital Signs: Vital Signs - 24 hr 12/05/24 12:00 12/05/24 12:12/05/24 12:00 Temperature 35.8 C L Pulse Rate 95 95 94 Respiratory Rate 25 H Blood Pressure 73/37 L 73/37 L 73/57 L Pulse Oximetry 100 Oxygen Delivery Oxygen Flow Rate 12/05/24 12:00 12/05/24 12:00 12/05/24 12:15 Temperature Pulse Rate 101 H 101 H 92 Respiratory Rate 29 H Blood Pressure 88/56 L Pulse Oximetry 100 Oxygen Delivery Nasal Cannula Oxygen Flow Rate 2 12/05/24 14:00 12/05/24 14:00 12/05/24 14:01 Temperature 36.3 C L Pulse Rate 98 98 98 Respiratory Rate 27 H Blood Pressure 102/76 102/76 70/45 L Pulse Oximetry 97 Oxygen Delivery Oxygen Flow Rate 12/05/24 15:14 12/05/24 15:14 12/05/24 16:00 Temperature Pulse Rate 95 95 Respiratory Rate 24 H 20 Blood Pressure Pulse Oximetry 98 100 Oxygen Delivery Nasal Cannula Nasal Cannula Oxygen Flow Rate 2 2 12/05/24 16:00 12/05/24 16:00 12/05/24 16:00 Temperature 37.2 C Pulse Rate 97 96 93 Respiratory Rate 26 H Blood Pressure 97/64 L 97/64 L 94/64 L Pulse Oximetry 99 Oxygen Delivery Oxygen Flow Rate 12/05/24 16:00 12/05/24 16:52 12/05/24 16:52 Temperature Pulse Rate 95 95 95 Respiratory Rate Blood Pressure 95/76 L 95/76 L Pulse Oximetry Oxygen Delivery Oxygen Flow Rate 12/05/24 18:00 12/05/24 18:00 12/05/24 18:00 Temperature 37.0 C Pulse Rate 100 92 92 Respiratory Rate 24 H Blood Pressure 94/70 L 94/70 L 94/70 L Pulse Oximetry 97 Oxygen Delivery Oxygen Flow Rate 12/05/24 19:00 12/05/24 20:00 12/05/24 20:00 Temperature Pulse Rate 92 98 98 Respiratory Rate 18 Blood Pressure 89/62 L Pulse Oximetry 99 Oxygen Delivery Nasal Cannula Oxygen Flow Rate 2 12/05/24 20:00 12/05/24 20:00 12/05/24 20:00 Temperature 36.4 C Pulse Rate 98 94 94 Respiratory Rate 24 H Blood Pressure 85/51 L 85/51 L 85/51 L Pulse Oximetry 99 Oxygen Delivery Oxygen Flow Rate 12/05/24 20:02 12/05/24 20:02 12/05/24 20:15 Temperature Pulse Rate 94 105 H Respiratory Rate 23 H 24 H Blood Pressure Pulse Oximetry 99 Oxygen Delivery Nasal Cannula Oxygen Flow Rate 2 12/05/24 22:00 12/05/24 22:00 12/05/24 22:00 Temperature Pulse Rate 94 99 94 Respiratory Rate 24 H Blood Pressure 85/51 L 85/51 L 85/51 L Pulse Oximetry 100 Oxygen Delivery Oxygen Flow Rate 12/05/24 23:34 12/06/24 00:00 12/06/24 00:00 Temperature Pulse Rate 99 99 99 Respiratory Rate 18 Blood Pressure 85/51 L 85/51 L Pulse Oximetry 99 Oxygen Delivery Nasal Cannula Oxygen Flow Rate 2 12/06/24 00:00 12/06/24 00:00 12/06/24 00:43 Temperature 36.2 C L Pulse Rate 88 88 99 Respiratory Rate 20 Blood Pressure 78/62 L 78/62 L Pulse Oximetry 99 Oxygen Delivery Oxygen Flow Rate 12/06/24 00:43 12/06/24 01:56 12/06/24 02:00 Temperature Pulse Rate 99 82 74 Respiratory Rate 21 H Blood Pressure 85/51 L 93/66 L 95/61 L Pulse Oximetry 100 Oxygen Delivery Oxygen Flow Rate 12/06/24 02:00 12/06/24 02:05 12/06/24 02:14 Temperature Pulse Rate 85 82 87 Respiratory Rate 22 H 22 H Blood Pressure 78/62 L Pulse Oximetry Oxygen Delivery Oxygen Flow Rate 12/06/24 03:56 12/06/24 03:58 12/06/24 04:00 Temperature 36.1 C L Pulse Rate 83 90 86 Respiratory Rate 18 16 Blood Pressure 101/74 Pulse Oximetry 100 100 Oxygen Delivery Nasal Cannula Oxygen Flow Rate 2 12/06/24 04:00 12/06/24 04:00 12/06/24 04:53 Temperature Pulse Rate 74 76 76 Respiratory Rate Blood Pressure 95/61 L 95/61 L Pulse Oximetry Oxygen Delivery Oxygen Flow Rate 12/06/24 06:00 12/06/24 06:00 12/06/24 06:00 Temperature Pulse Rate 74 74 76 Respiratory Rate 16 Blood Pressure 95/61 L 95/61 L Pulse Oximetry 99 Oxygen Delivery Oxygen Flow Rate 12/06/24 06:16 12/06/24 07:31 12/06/24 07:32 Temperature 35.8 C L Pulse Rate 76 81 89 Respiratory Rate 14 Blood Pressure 91/40 L 91/40 L Pulse Oximetry 98 Oxygen Delivery Oxygen Flow Rate 12/06/24 08:07 12/06/24 08:59 12/06/24 09:09 Temperature Pulse Rate 97 89 92 Respiratory Rate 20 19 Blood Pressure 103/78 Pulse Oximetry 96 Oxygen Delivery Nasal Cannula Oxygen Flow Rate 2 12/06/24 09:11 12/06/24 10:00 Temperature Pulse Rate 88 92 Respiratory Rate 26 H Blood Pressure 101/51 L Pulse Oximetry 98 Oxygen Delivery Oxygen Flow Rate Intake/Output Intake/Output: Intake & Output 12/03/24 12/04/24 12/05/24 12/06/24 23:59 23:59 23:59 23:59 Intake Total 100 1584.9 1274.4 Output Total 450 200 Balance 100 1134.9 1074.4 Meds/Results Medications: Active Medications Generic Name Dose Route Start Last Admin Trade Name Freq PRN Reason Stop Dose Admin Acetaminophen 650 mg 12/04/24 22:10 Acetaminophen 325 Mg Tablet PO Q4H PRN Mild Pain (1-3) or Fever Hydrocodone Bitart/Acetaminophen 1 tab 12/05/24 01:36 12/05/24 20:36 Hydrocodone/Acetaminophen (*Crx) 5-325 Mg Tablet PO 1 tab Q8H PRN Administration pain 7-10 Albuterol/Ipratropium 3 ml 12/06/24 08:00 Ipratropium 0.5 Mg/Albuterol Sulfate 2.5 Mg Ampul.Neb 3 Ml INHALATION Q6HRT PRN wheezine Atorvastatin Calcium 20 mg 12/05/24 09:00 12/06/24 09:09 Atorvastatin 20 Mg Tablet PO 20 mg DAILY KRISTEN Administration Furosemide 80 mg 12/06/24 09:00 12/06/24 10:15 Furosemide Inj 100 Mg/10 Ml Vial IV PUSH 80 mg BID KRISTEN Administration Heparin Sodium (Porcine) 5,500 units 12/06/24 07:53 Heparin Sodium 5,000 Units/Ml Vial IV PUSH PRN PRN aPTT less than 55 seconds Heparin Sodium (Porcine) 3,000 units 12/06/24 07:53 Heparin Sodium 5,000 Units/Ml Vial IV PUSH PRN PRN aPTT 55 - 70 seconds Hydrocortisone Sodium Succinate 100 mg 12/06/24 14:00 Hydrocortisone Sodium Succinate 100 Mg/2 Ml Vial IV PUSH Q8HR KRISTEN Norepinephrine Bitartrate 8 mg in 250 mls @ 22.5 mls/hr 12/05/24 09:25 12/06/24 07:32 Levophed 8 Mg/D5w 250 Ml IV CONT 12 mcg/min .Q11H7M KRISTEN 22.5 mls/hr Titration Protocol 12 MCG/MIN Heparin Sodium/Dextrose 25,000 units in 250 mls @ 12 mls/hr 12/06/24 08:15 12/06/24 09:08 Heparin Sodium/D5w 100 Units/Ml IV CONT 1,200 units/hr .[id number] KRISTEN 12 mls/hr Administration Protocol 1,200 UNITS/HR Dobutamine HCl/Dextrose 250 mg in 250 mls @ 15.15 mls/hr 12/06/24 07:55 12/06/24 09:09 Dobutamine 250 Mg/D5w 250 Ml IV CONT 2.5 mcg/kg/min .[id number] KRISTEN 15.15 mls/hr Administration 2.5 MCG/KG/MIN Albumin Human 100 mls @ 60 mls/hr 12/06/24 09:00 12/06/24 09:08 Albutein IVPB 60 mls/hr BID KRISTEN Administration Potassium Bicarbonate 25 meq 12/06/24 13:00 Potassium Bicarbonate 25 Meq Tabef PO 12/06/24 13:01 ONCE ONE Fluticasone/Salmeterol 2 puff 12/05/24 08:00 12/06/24 08:58 Fluticasone/Salmeterol 115-21 Mcg Inhaler 1 Puff INHALATION 2 puff Q12HRT KRISTEN Administration Sodium Chloride 10 ml 12/05/24 14:00 12/06/24 06:26 Central Line Flush IV PUSH 10 ml Q8HR KRISTEN Administration Sodium Chloride 10 ml 12/05/24 11:12 Central Line Flush IV PUSH PRN PRN with TPN bag changes Sodium Chloride 20 ml 12/05/24 11:12 Central Line Flush IV PUSH PRN PRN after blood draws Radiology Results: ITS Impressions Chest X-Ray 12/05/24 11:31 IMPRESSION: No acute cardiopulmonary pathology. Renal Ultrasound 12/05/24 15:17 IMPRESSION: No hydronephrosis or renal calculi. Findings suggesting medical renal disease. Chest CT 12/05/24 15:24 IMPRESSION: Findings consistent with pulmonary edema with a small right-sided pleural effusion. Additional findings worrisome for pulmonary hypertension, as detailed above. Trace anasarca. Intra-abdominal ascites Venous Doppler Study 12/05/24 16:06 IMPRESSION: Negative bilateral lower extremity venous US. No deep vein thrombosis. Labs Labs: Laboratory Results - last 24 hr 12/05/24 12/05/24 12/06/24 14:03 22:32 04:38 WBC 9.5 RBC 4.99 Hgb 14.3 Hct 44.9 MCV 90.0 MCH 28.7 MCHC 31.8 L RDW 16.0 H Plt Count 204 MPV 8.9 PT INR APTT Sodium 127 L Potassium 3.2 L Chloride 95 L Carbon Dioxide 19 L Anion Gap 13 H BUN 41 H Creatinine 2.82 H Estim Creat Clear Calc 22 Estimated GFR 17 L Glucose 108 Calcium 9.0 Phosphorus 5.2 H Magnesium 2.0 Total Bilirubin 3.0 H AST 664 H ALT 245 H Alkaline Phosphatase 112 Total Creatine Kinase 142 H Total Protein 6.5 Albumin 3.1 L TSH (Reflex) Random Cortisol 12.00 Urine Color Dark yellow Urine Appearance Cloudy H Urine pH 5.0 Ur Specific [place] 1.014 Urine Protein 3+ H Urine Glucose (UA) Negative Urine Ketones Negative Ur Blood (Man) Negative Urine Nitrate Negative Urine Bilirubin 1+ H Urine Urobilinogen 2.0 H Leukocyte Esterase Rfl Negative Urine RBC 0-2 Urine WBC 0-5 Ur Squamous Epith Cells None seen Urine Bacteria None seen Urine Casts 3-5 Urine Eosinophils None seen U Random Total Protein 98 Ur Random Sodium Cancelled Ur Random Urea 273 Urine Creatinine 108.3 108.9 Protein/Creat Ratio 2 0.90 H Vancomycin Trough 15.2 12/06/24 09:07 WBC RBC Hgb Hct MCV MCH MCHC RDW Plt Count MPV PT 25.1 H D INR 2.3 APTT 42.3 H Sodium Potassium Chloride Carbon Dioxide Anion Gap BUN Creatinine Estim Creat Clear Calc Estimated GFR Glucose Calcium Phosphorus Magnesium Total Bilirubin AST ALT Alkaline Phosphatase Total Creatine Kinase Total Protein Albumin TSH (Reflex) 9.980 H Random Cortisol Urine Color Urine Appearance Urine pH Ur Specific [place] Urine Protein Urine Glucose (UA) Urine Ketones Ur Blood (Man) Urine Nitrate Urine Bilirubin Urine Urobilinogen Leukocyte Esterase Rfl Urine RBC Urine WBC Ur Squamous Epith Cells Urine Bacteria Urine Casts Urine Eosinophils U Random Total Protein Ur Random Sodium Ur Random Urea Urine Creatinine Protein/Creat Ratio 2 Vancomycin Trough
[2024-12-06 12:28] LABS: Sodium Urine Random 25 meq/L
[2024-12-06 12:53] LABS: Free T4 Free Thyroxine Reflex 1.41 ng/dL (0.78-2.19)
[2024-12-06 13:52] LABS: Total Triiodothyronine (T3) 0.53 NG/ML (0.82-1.58)
[2024-12-06] MEDS: NOREPINEPHRINE 8 MG/D5W 250 ML 8 MG/250 ML BAG 22.5 MG IV CONT (13:59)
[2024-12-06] MEDS: HYDROCORTISONE SODIUM SUCCINATE 100 MG/2 ML VIAL IV PUSH ×2 (13:59→21:24)
[2024-12-06] MEDS: POTASSIUM BICARBONATE 25 MEQ TABEF PO (14:02)
[2024-12-06 16:12] LABS: Partial Thromboplastin Time > 200.0 Seconds (22.3-36.8)
[2024-12-06 22:55] LABS: Partial Thromboplastin Time 61.7 Seconds (22.3-36.8)
[2024-12-06] MEDS: HEPARIN SODIUM 5,000 UNITS/ML VIAL 3000 UNITS IV PUSH (23:22)
[2024-12-07] VITALS (57 sets, daily range): BP systolic 62–122; BP diastolic 33–90; PULSE 68–110; RESP 13–34; TEMP 35.9–36.8; O2SAT 94–100
[2024-12-07] MEDS: NOREPINEPHRINE 8 MG/D5W 250 ML 8 MG/250 ML BAG 20.63 MG IV CONT (01:23)
--- NOTE | 2024-12-07 02:14 | PC.NURSE ---
dobutamine drip updated for current weight of 88.8kg
[2024-12-07] MEDS: CENTRAL LINE FLUSH 10 ML IV PUSH ×3 (05:05→21:29)
[2024-12-07] MEDS: HYDROCORTISONE SODIUM SUCCINATE 100 MG/2 ML VIAL IV PUSH ×3 (05:05→21:29)
[2024-12-07] MEDS: CENTRAL LINE FLUSH 20 ML IV PUSH (05:06)
[2024-12-07 05:19] LABS: Hematocrit 39.1 % (37.0-47.0); Hemoglobin 12.5 g/dL (12.0-15.0); Immature Granulocyte Absolute 0.02 K/mm3 (0.00-0.031); Immature Granulocyte Percent A 0.4 % (0-0.5); Lymphocytes Absolute Auto 0.39 K/mm3 (0.9-3.2); Lymphocytes Percent Auto 7.4 % (18.3-44.2); Mean Corpuscular Hemoglobin 28.3 pg (26-34); Mean Corpuscular Volume 88.5 fl (80-100); Mean Platelet Volume 8.4 fl (7.4-10.4); Monocytes Absolute Auto 0.1 K/mm3 (0.1-0.6); Monocytes Percent Auto 2.5 % (2.6-8.5); Neutrophils Absolute Auto 4.8 K/mm3 (1.3-6.7); Neutrophils Percent Auto 89.7 % (45.5-73.1); Platelet Count Result 133 k/mm3 (150-375); Red Blood Count 4.42 M/mm3 (4.2-5.4); Red Cell Distribution Width 16.1 % (11.5-14.5); White Blood Count 5.3 K/mm3 (4.5-10.0)
[2024-12-07 05:53] LABS: Alanine Aminotransferase 236 U/L (6-35); Albumin Level 3.5 g/dL (3.5-5.1); Alkaline Phosphatase 96 U/L (38-126); Anion Gap 14 mmol/L (4-12); Aspartate Amino Transferase 402 U/L (14-36); Bilirubin,Total 2.9 mg/dL (0.2-1.3); Blood Urea Nitrogen 42 mg/dL (7-17); Calcium 9.4 mg/dL (8.4-10.2); Carbon Dioxide 22 mmol/L (22-30); Chloride 95 mmol/L (98-107); Estimated CRCL calculation 25 ml/min; Estimated Glomerular Filt Rate 22; Glucose 160 mg/dL (65-110); Magnesium 1.8 mg/dL (1.6-2.3); Partial Thromboplastin Time > 200.0 Seconds (22.3-36.8); Phosphorus 3.7 mg/dL (2.5-4.5); Potassium 3.3 mmol/L (3.4-5.0); Sodium 131 mmol/L (137-145); Total Protein 6.7 g/dL (6.3-8.2)
--- NOTE | 2024-12-07 06:07 | PC.NURSE ---
Dobutamine bag still has volume. It is running at 2.5mcg/kg/hr or 13.3ml/hr.
[2024-12-07 07:18] LABS: Protein, Total 6.3 g/dL (6.1-8.1)
[2024-12-07] MEDS: FLUTICASONE/SALMETEROL 115-21 MCG INHALER 1 PUFF 2 PUFF INHALATION ×2 (07:56→20:03)
[2024-12-07 07:59] LABS: Creatinine, Random Urine 109 mg/dL (20-275); Total Prot/Creat ratio mg/mg 0.844 (0.024-0.184); Total Protein/Creatinine Ratio 844 mg/g creat (24-184)
[2024-12-07] MEDS: DOBUTamine 250 MG/D5W 250 ML 250 MG/250 ML BAG 13.32 MG IV CONT (08:00)
[2024-12-07] MEDS: FUROSEMIDE INJ 100 MG/10 ML VIAL 80 MG IV PUSH ×2 (09:16→17:26)
[2024-12-07] MEDS: ALBUMIN HUMAN 25% 25 GM/100 ML 100 ML IVPB ×2 (09:16→17:26)
[2024-12-07] MEDS: POTASSIUM CHLORIDE 20 MEQ ER TABLET 40 MEQ PO ×2 (09:16→13:55)
--- NOTE | 2024-12-07 09:16 | P.PNCA_ITS ---
Progress Note: A&P Assessment and Plan (1) CHF (congestive heart failure): Qualifiers: Heart failure type: unspecified Heart failure chronicity: acute Qualified Code(s): I50.9 - Heart failure, unspecified Code(s): I50.9 - Heart failure, unspecified Status: Acute (2) Atrial fibrillation with RVR: Code(s): I48.91 - Unspecified atrial fibrillation Status: Acute Plan 54-year-old lady with profound nonischemic cardiomyopathy presenting with hemodynamic decompensation, CHF and AFib with RVR. She is out of atrial fibrillation since being treated with intravenous amiodarone. Given this substrate I believe we should start oral amiodarone will start out with 400 mg daily and plan to wean that down in the future. She is benefiting from dobutamine which was started yesterday will continue that so that we can mobilize edema/volume. When she is euvolemic we will either restart ARB or consider Entresto given her very low ejection fraction. Obviously her long-term prognosis is limited. Renzo Foreman MD [facility] Subjective Date/time seen: Date of service: 12/07/24 09:16 Interval history: Reason for encounter: AFib with RVR, acute on chronic systolic heart failure Relevant history:54-year-old female with history of paroxysmal atrial fibrillation (paroxysmal AFib noticed on device interrogation was very brief and so she was taken off Eliquis by EP due to very low burden of AFib, also patient had significant nosebleeds), hyperlipidemia, hypertension, chronic systolic congestive heart failure, nonischemic cardiomyopathy (TTE in September 2024 showed LVEF of 10-15%, mild tricuspid regurgitation; TTE in September 2023 showed LVEF of 20-25%) status post AICD, history of VT, vitamin-D deficiency, osteoarthritis, chronic back pain, asthma on 2 L oxygen at home presented with chief complaints of worsening shortness of breath and lower extremity swelling. In the ER she was tachycardic with heart rate in the 120s and had soft blood pressures with SBP in the 90. EKG showed a flutter/tachycardia with rate in the 130s, ventricular paced complexes and fusion complex, left bundle branch block. Amiodarone bolus was administered and a drip started. She converted back to sinus rhythm with amiodarone. Cardiology was consulted for further recommendations. Workup: Sodium: 127 Creatinine: 2.6 Lactate: 4.5 Troponin: 0.100, 0.119 BNP: >30,000 EKG: A flutter/tachycardia with RVR, rate in the 130s, ventricular paced complexes and fusion complex present, left bundle branch Lower extremity venous Doppler: Negative for DVT Chest x-ray: Air bronchograms within the left superior hilum suspicious for an early infiltrate CT chest: Findings consistent with pulmonary edema with a small right-sided pleural effusion. Additional findings worrisome for pulmonary hypertension. Trace anasarca. Intra-abdominal ascites Cardiac catheterization in 2021: No CAD Interval history: Patient reports improvement in breathing P she continues to have significant swelling in her lower extremities. No chest pain, palpitations, dizziness. Telemetry shows sinus tachycardia. 12/07/2024: Patient is comfortable this morning reports significant improvement in her breathing since being started on dobutamine. Chart shows urinary output is improved with I inotropic support. Exam Const: General: comfortable and no acute distress HENMT: Mouth: Yes moist mucous membranes Eyes: Sclera: sclerae normal Neck: Neck: supple and no JVD Resp: Effort & Inspection: normal respiratory effort Other: Scant basilar rales noted Cardio: Rate: regular rate Other: Atrially paced GI: GI Palp: Yes Soft to palpation Auscultation: normal bowel sounds Skin: General skin exam: normal color Neuro: Other: Alert and oriented x3 Extrem: Other: Obese, still has moderate soft pitting edema Objective Data Vital Signs Vital Signs: Vital Signs - 24 hr 12/06/24 10:00 12/06/24 10:00 12/06/24 10:00 Temperature Pulse Rate 92 87 86 Respiratory Rate 26 H Blood Pressure 101/51 L 86/60 L Pulse Oximetry 98 Oxygen Delivery Oxygen Flow Rate 12/06/24 11:55 12/06/24 12:00 12/06/24 12:00 Temperature 36.6 C Pulse Rate 91 99 Respiratory Rate 22 H Blood Pressure 97/59 L Pulse Oximetry 100 100 Oxygen Delivery Nasal Cannula Oxygen Flow Rate 2 12/06/24 13:05 12/06/24 13:59 12/06/24 14:00 Temperature 36.8 C Pulse Rate 92 92 89 Respiratory Rate 18 Blood Pressure 89/62 L 89/62 L 96/60 L Pulse Oximetry 100 Oxygen Delivery Oxygen Flow Rate 12/06/24 14:00 12/06/24 16:00 12/06/24 16:00 Temperature 36.9 C Pulse Rate 86 90 85 Respiratory Rate 18 Blood Pressure 98/79 L Pulse Oximetry 99 Oxygen Delivery Oxygen Flow Rate 12/06/24 16:00 12/06/24 18:00 12/06/24 18:00 Temperature 36.9 C Pulse Rate 80 82 Respiratory Rate 19 Blood Pressure 104/65 Pulse Oximetry 100 100 Oxygen Delivery Nasal Cannula Oxygen Flow Rate 2 12/06/24 19:00 12/06/24 19:06 12/06/24 19:15 Temperature 36.7 C 36.7 C 36.7 C Pulse Rate 86 84 81 Respiratory Rate 23 H 23 H 22 H Blood Pressure 103/65 Pulse Oximetry 99 98 Oxygen Delivery Oxygen Flow Rate 12/06/24 19:30 12/06/24 19:31 12/06/24 19:34 Temperature 36.7 C 36.7 C 36.7 C Pulse Rate 89 86 84 Respiratory Rate 33 H 21 H 24 H Blood Pressure 104/48 L 104/48 L Pulse Oximetry Oxygen Delivery Oxygen Flow Rate 12/06/24 19:45 12/06/24 20:00 12/06/24 20:00 Temperature 36.7 C Pulse Rate 86 88 88 Respiratory Rate 22 H Blood Pressure 101/57 L 101/57 L Pulse Oximetry 98 Oxygen Delivery Oxygen Flow Rate 12/06/24 20:00 12/06/24 20:00 12/06/24 20:00 Temperature 36.7 C 36.7 C Pulse Rate 88 84 85 Respiratory Rate 24 H 25 H Blood Pressure 101/57 L Pulse Oximetry 98 Oxygen Delivery Oxygen Flow Rate 12/06/24 20:01 12/06/24 20:15 12/06/24 20:30 Temperature 36.7 C 36.8 C 36.8 C Pulse Rate 86 89 89 Respiratory Rate 25 H 26 H 23 H Blood Pressure 101/57 L 107/60 Pulse Oximetry 100 98 Oxygen Delivery Oxygen Flow Rate 12/06/24 20:31 12/06/24 20:45 12/06/24 21:00 Temperature 36.8 C 36.8 C 36.8 C Pulse Rate 87 93 88 Respiratory Rate 28 H 27 H 29 H Blood Pressure 99/57 L Pulse Oximetry 100 100 Oxygen Delivery Oxygen Flow Rate 12/06/24 21:01 12/06/24 21:15 12/06/24 21:30 Temperature 36.8 C 36.8 C Pulse Rate 89 87 Respiratory Rate 31 H 25 H Blood Pressure Pulse Oximetry 96 100 Oxygen Delivery Nasal Cannula Oxygen Flow Rate 2 12/06/24 21:30 12/06/24 21:31 12/06/24 21:45 Temperature 36.8 C 36.7 C 36.7 C Pulse Rate 84 87 88 Respiratory Rate 26 H 28 H 28 H Blood Pressure 95/55 L Pulse Oximetry Oxygen Delivery Oxygen Flow Rate 12/06/24 22:00 12/06/24 22:00 12/06/24 22:00 Temperature Pulse Rate 84 84 82 Respiratory Rate Blood Pressure 106/63 106/63 Pulse Oximetry Oxygen Delivery Oxygen Flow Rate 12/06/24 22:00 12/06/24 22:01 12/06/24 22:15 Temperature 36.7 C 36.7 C 36.7 C Pulse Rate 85 84 87 Respiratory Rate 19 21 H 24 H Blood Pressure 106/63 Pulse Oximetry 100 99 Oxygen Delivery Oxygen Flow Rate 12/06/24 22:30 12/06/24 22:31 12/06/24 22:45 Temperature 36.7 C 36.7 C 36.3 C L Pulse Rate 85 87 88 Respiratory Rate 19 27 H 27 H Blood Pressure 98/58 L Pulse Oximetry 95 95 Oxygen Delivery Oxygen Flow Rate 12/06/24 23:00 12/07/24 00:00 12/07/24 00:00 Temperature 36.7 C 36.6 C Pulse Rate 89 89 Respiratory Rate 19 Blood Pressure 104/52 L 104/52 L Pulse Oximetry 97 Oxygen Delivery Oxygen Flow Rate 12/07/24 00:00 12/07/24 00:00 12/07/24 00:09 Temperature Pulse Rate 87 89 Respiratory Rate Blood Pressure 104/52 L Pulse Oximetry 97 Oxygen Delivery Nasal Cannula Oxygen Flow Rate 2 12/07/24 01:06 12/07/24 01:23 12/07/24 01:45 Temperature Pulse Rate 86 86 76 Respiratory Rate Blood Pressure 116/54 L 116/64 110/63 Pulse Oximetry Oxygen Delivery Oxygen Flow Rate 12/07/24 02:15 12/07/24 02:15 12/07/24 02:16 Temperature Pulse Rate 89 84 89 Respiratory Rate 23 H Blood Pressure 93/80 L 99/63 L Pulse Oximetry 99 Oxygen Delivery Oxygen Flow Rate 12/07/24 02:17 12/07/24 04:00 12/07/24 04:00 Temperature Pulse Rate 85 87 87 Respiratory Rate Blood Pressure 99/63 L 100/55 L 100/65 Pulse Oximetry Oxygen Delivery Oxygen Flow Rate 12/07/24 04:00 12/07/24 04:00 12/07/24 04:00 Temperature 36.1 C L Pulse Rate 86 87 Respiratory Rate 16 Blood Pressure 100/55 L Pulse Oximetry 97 97 Oxygen Delivery Nasal Cannula Oxygen Flow Rate 2 12/07/24 06:00 12/07/24 06:00 12/07/24 06:00 Temperature 36.0 C L Pulse Rate 82 82 82 Respiratory Rate 16 Blood Pressure 97/66 L 97/66 L Pulse Oximetry 97 Oxygen Delivery Oxygen Flow Rate 12/07/24 07:51 12/07/24 07:57 Temperature 35.9 C L Pulse Rate 80 Respiratory Rate 13 Blood Pressure 93/46 L Pulse Oximetry 97 96 Oxygen Delivery Nasal Cannula Oxygen Flow Rate 2 Intake/Output Intake/Output: Intake & Output 12/04/24 12/05/24 12/06/24 12/07/24 23:59 23:59 23:59 23:59 Intake Total 100 1584.9 3037.7 984.5 Output Total 450 2075 1100 Balance 100 1134.9 962.7 -115.5 Meds/Results Medications: Active Medications Generic Name Dose Route Start Last Admin Trade Name Freq PRN Reason Stop Dose Admin Acetaminophen 650 mg 12/04/24 22:10 Acetaminophen 325 Mg Tablet PO Q4H PRN Mild Pain (1-3) or Fever Hydrocodone Bitart/Acetaminophen 1 tab 12/05/24 01:36 12/05/24 20:36 Hydrocodone/Acetaminophen (*Crx) 5-325 Mg Tablet PO 1 tab Q8H PRN Administration pain 7-10 Albuterol/Ipratropium 3 ml 12/06/24 08:00 Ipratropium 0.5 Mg/Albuterol Sulfate 2.5 Mg Ampul.Neb 3 Ml INHALATION Q6HRT PRN wheezine Amiodarone HCl 400 mg 12/07/24 09:15 Amiodarone Hcl 200 Mg Tablet PO DAILY@0800 KRISTEN Atorvastatin Calcium 20 mg 12/05/24 09:00 12/06/24 09:09 Atorvastatin 20 Mg Tablet PO 20 mg DAILY KRISTEN Administration Furosemide 80 mg 12/06/24 09:00 12/06/24 18:00 Furosemide Inj 100 Mg/10 Ml Vial IV PUSH 80 mg BID KRISTEN Administration Heparin Sodium (Porcine) 5,000 units 12/07/24 02:19 Heparin Sodium 5,000 Units/Ml Vial IV PUSH PRN PRN aPTT less than 55 seconds Heparin Sodium (Porcine) 2,500 units 12/07/24 02:19 Heparin Sodium 5,000 Units/Ml Vial IV PUSH PRN PRN aPTT 55 - 70 seconds Hydrocortisone Sodium Succinate 100 mg 12/06/24 14:00 12/07/24 05:05 Hydrocortisone Sodium Succinate 100 Mg/2 Ml Vial IV PUSH 100 mg Q8HR KRISTEN Administration Norepinephrine Bitartrate 8 mg in 250 mls @ 18.75 mls/hr 12/05/24 09:25 12/07/24 06:00 Levophed 8 Mg/D5w 250 Ml IV CONT 10 mcg/min .[id number] KRISTEN 18.75 mls/hr Titration Protocol 10 MCG/MIN Heparin Sodium/Dextrose 25,000 units in 250 mls @ 9 mls/hr 12/06/24 08:15 12/07/24 07:25 Heparin Sodium/D5w 100 Units/Ml IV CONT 900 units/hr .Q24H KRISTEN 9 mls/hr Titration Protocol 900 UNITS/HR Dobutamine HCl/Dextrose 250 mg in 250 mls @ 13.32 mls/hr 12/06/24 07:55 12/07/24 04:00 Dobutamine 250 Mg/D5w 250 Ml IV CONT Infused .[id number] KRISTEN Infusion 2.5 MCG/KG/MIN Albumin Human 100 mls @ 60 mls/hr 12/06/24 09:00 12/06/24 18:41 Albutein IVPB Infused BID KRISTEN Infusion Potassium Chloride 40 meq 12/07/24 08:00 Potassium Chloride 20 Meq Er Tablet PO 12/07/24 14:01 Q6H KRISTEN Fluticasone/Salmeterol 2 puff 12/05/24 08:00 12/07/24 07:56 Fluticasone/Salmeterol 115-21 Mcg Inhaler 1 Puff INHALATION 2 puff Q12HRT KRISTEN Administration Sodium Chloride 10 ml 12/05/24 14:00 12/07/24 05:05 Central Line Flush IV PUSH 10 ml Q8HR KRISTEN Administration Sodium Chloride 10 ml 12/05/24 11:12 Central Line Flush IV PUSH PRN PRN with TPN bag changes Sodium Chloride 20 ml 12/05/24 11:12 12/07/24 05:06 Central Line Flush IV PUSH 20 ml PRN PRN Administration after blood draws Radiology Results: ITS Impressions Chest X-Ray 12/05/24 11:31 IMPRESSION: No acute cardiopulmonary pathology. Renal Ultrasound 12/05/24 15:17 IMPRESSION: No hydronephrosis or renal calculi. Findings suggesting medical renal disease. Chest CT 12/05/24 15:24 IMPRESSION: Findings consistent with pulmonary edema with a small right-sided pleural effusion. Additional findings worrisome for pulmonary hypertension, as detailed above. Trace anasarca. Intra-abdominal ascites Venous Doppler Study 12/05/24 16:06 IMPRESSION: Negative bilateral lower extremity venous US. No deep vein thrombosis. Labs Labs: Laboratory Results - last 24 hr 12/06/24 12/06/24 12/06/24 04:38 09:07 12:17 WBC RBC Hgb Hct MCV MCH MCHC RDW Plt Count MPV Immature Gran % (Auto) Neut % (Auto) Lymph % (Auto) [place] % (Auto) Eos % (Auto) Baso % (Auto) Lymph # (Auto) [place] # (Auto) Eos # (Auto) Baso # (Auto) Abs Immat Gran (auto) Absolute Neuts (auto) Absolute Nucleated RBC Nucleated RBC % PT 25.1 H D INR 2.3 APTT 42.3 H Sodium Potassium Chloride Carbon Dioxide Anion Gap BUN Creatinine Estim Creat Clear Calc Estimated GFR Glucose Calcium Phosphorus Magnesium Total Bilirubin AST ALT Alkaline Phosphatase Total Protein 6.3 Albumin TSH (Reflex) 9.980 H Free T4 1.41 Total T3 0.53 L Ur Random Creatinine 109 U Random Total Protein 92 H Ur Random Sodium Cancelled 25 Protein/Creatinin Ratio 844 H 12/06/24 12/06/24 12/07/24 15:15 22:36 05:07 WBC 5.3 RBC 4.42 Hgb 12.5 Hct 39.1 MCV 88.5 MCH 28.3 MCHC 32.0 RDW 16.1 H Plt Count 133 L MPV 8.4 Immature Gran % (Auto) 0.4 Neut % (Auto) 89.7 H Lymph % (Auto) 7.4 L [place] % (Auto) 2.5 L Eos % (Auto) 0.0 Baso % (Auto) 0.0 L Lymph # (Auto) 0.39 L [place] # (Auto) 0.1 Eos # (Auto) 0.0 Baso # (Auto) 0.0 Abs Immat Gran (auto) 0.02 Absolute Neuts (auto) 4.8 Absolute Nucleated RBC 0.000 Nucleated RBC % 0.0 PT INR APTT > 200.0 H* 61.7 H > 200.0 H* Sodium 131 L Potassium 3.3 L Chloride 95 L Carbon Dioxide 22 Anion Gap 14 H BUN 42 H Creatinine 2.33 H Estim Creat Clear Calc 25 Estimated GFR 22 L Glucose 160 H Calcium 9.4 Phosphorus 3.7 Magnesium 1.8 Total Bilirubin 2.9 H AST 402 H ALT 236 H Alkaline Phosphatase 96 Total Protein 6.7 Albumin 3.5 TSH (Reflex) Free T4 Total T3 Ur Random Creatinine U Random Total Protein Ur Random Sodium Protein/Creatinin Ratio
[2024-12-07] MEDS: ATORVASTATIN 20 MG TABLET PO (09:17)
[2024-12-07] MEDS: AMIODARONE HCL 200 MG TABLET 400 MG PO (09:20)
--- NOTE | 2024-12-07 09:47 | WPDINTPN ---
Progress Note: A&P Assessment and Plan (1) Shortness of breath: Code(s): R06.02 - Shortness of breath Status: Acute Assessment and Plan: Patient presented with shortness of breath without history of fever and dry cough Likely secondary to congestive heart failure and presented with AFib with RVR. She but she is only on 2 L nasal cannula which is her home oxygen She does not appear in any respiratory distress. Exam as above Chest x-ray showed air bronchograms in left superior hilum suggestive of early infiltrate. She has normal WBC and is afebrile. She was started on empiric antibiotics. But her procalcitonin level was low and CT scan did not show any infiltrates or findings suggestive of pneumonia. Antibiotics discontinued Continue Lasix and albumin See below (2) Acute exacerbation of CHF (congestive heart failure): Code(s): I50.9 - Heart failure, unspecified Status: Acute Assessment and Plan: Patient has history of congestive heart failure. Echo in 2020 showed EF 20-25% she had a recent echocardiogram which showed 10% EF. Echo on this hospitalization ordered and pending. She had a negative cardiac catheterization as per Cardiology records Cardiology following Echo Summary 1. Four-chamber dilated cardiomyopathy. 2. Profound left and right ventricular systolic dysfunction ejection fraction 10-15%. 3. Mild MR resulting from annular dilation. 4. At least moderate pulmonary hypertension based on tricuspid regurgitant velocity After discussion with Cardiology patient was started on dobutamine for post to inotropic effect to allow diuresis in light of kidney injury Continue dobutamine and Lasix and albumin (3) Non-ST elevation TX (NSTEMI): Code(s): I21.4 - Non-ST elevation (NSTEMI) myocardial infarction Status: Acute Assessment and Plan: Mild elevation in troponin with no chest pain. EKG reviewed Patient presented with AFib with RVR As per Cardiology recurrence patient had a cardiac catheterization in recent past which was negative any coronary disease Patient has not been on anticoagulation as an outpatient due to history of frequent and significant nose bleeds. Patient was started on heparin drip at this time for AFib with RVR and closely monitor. Continue Continue statin Not on beta-saba Rian or ARB due to low blood pressure and elevated creatinine (4) Pneumonia: Code(s): J18.9 - Pneumonia, unspecified organism Status: Acute Assessment and Plan: See above (5) Hyperlipidemia: Code(s): E78.5 - Hyperlipidemia, unspecified Status: Acute Assessment and Plan: Continue atorvastatin (6) Elevated serum creatinine: Code(s): R79.89 - Other specified abnormal findings of blood chemistry Status: Acute Assessment and Plan: Last recorded creatinine was 1.5 in 2022 presented with creatinine of 2.66. Two weeks ago creatinine was 2.18 I suspect patient has chronic kidney disease and may have acute kidney injury Renal ultrasound showed medical renal disease CK minimally elevated Betts and accurate I&Os Nephrology evaluated the patient and following will defer further workup for renal failure to Nephrology Continue Lasix and albumin Monitor urine output electrolytes and creatinine (7) Lower extremity edema: Code(s): R60.0 - Localized edema Status: Acute Assessment and Plan: Likely secondary to congestive heart failure and kidney dysfunction Diuresis as above Lower extremity Dopplers negative for DVT (8) Atrial fibrillation with RVR: Code(s): I48.91 - Unspecified atrial fibrillation Status: Acute Assessment and Plan: Presented with AFib with RVR. Not on any antiplatelet or anticoagulation as an outpatient Patient was started on amiodarone infusion at the time of admission as patient blood pressure was low for rate control Echo ordered and pain Patient does not take aspirin due to history of allergy. Patient states that she used to be on Eliquis in the past but it was discontinued due to frequent severe nosebleed Discussed with dicer operator and she recommends starting anticoagulation. I spoke to patient and discussed risks and benefits. We has decided to start with trial of heparin infusion to see if patient tolerates without any complications. Amiodarone infusion was discontinued as patient has converted to sinus rhythm. Cardiology is going to start p.o. amiodarone Echocardiogram as above (9) Cardiogenic shock: Code(s): R57.0 - Cardiogenic shock Status: Acute Assessment and Plan: Continue Levophed and dobutamine for blood pressure support The patient's cortisol level was low hence started on hydrocortisone stress dose (10) Electrolyte abnormality: Code(s): E87.8 - Other disorders of electrolyte and fluid balance, not elsewhere classified Status: Acute Assessment and Plan: Replace low potassium Plan DVT prophylaxis -heparin insert Stress ulcer prophylaxis - NA Nutrition -diet ordered Code Status -patient wishes to be DNR DNI she does not want to go on a ventilator or receive CPR in the event of cardiac arrest. She states she does not have any family member in town. She is single and has been estranged from her children. Most of her relatives live in [place] Total Critical Care Time - 30 minutes Due to a high probability of clinically significant, life threatening deterioration, the patient required my highest level of preparedness to intervene emergently and I personally spent this critical care time directly and personally managing the patient. This critical care time included obtaining a history; examining the patient; pulse oximetry; ordering and review of studies; arranging urgent treatment with development of a management plan; evaluation of patient's response to treatment; frequent reassessment; and discussions with other providers. It was exclusive of separately billable procedures and treating other patients and teaching time. Please see Assessment and Plan section and the rest of the note for further information on patient assessment and treatment Subjective Date/time seen: 12/07/24 Overnight events reviewed. Afebrile Patient states she feels better with no new complaints. She continues to be on Levophed and is now on dobutamine infusion Urine output has improved with diuretics She continues to be in sinus rhythm and on 2 L nasal can Patient denies fever, chest pain, shortness of breath, cough, nausea vomiting, abdominal pain,, diarrhea, headache or constipation. Review of system is again positive for swelling in legs All other systems were reviewed and were negative Tolerating p.o. diet Review of Systems Review of Systems: All systems reviewed & are unremarkable except as noted in HPI and below (HPI) Exam Narrative: General: Pt is alert awake and in NAD Lungs/Chest: Trachea central Clear BS B/L, few crackles at the bases right more than left. No respiratory distress, no use of accessory muscles, no significant wheezing Cardiac: Irregular rate and rhythm Normal S1 S2. No murmurs Circulation: Pedal pulses are intact and symmetrical. Abdomen: Normal bowel sounds.. Soft. NT. ND. Extremities: Bilateral pitting edema present :. Betts catheter in place Neurologic: Follows commands. Moves all 4 extremities PERRL AO x3 Skin: Intertrigo in the inguinal folds Objective Data Vital Signs Vital Signs: Vital Signs - 24 hr 12/06/24 10:00 12/06/24 10:00 12/06/24 10:00 Temperature Pulse Rate 92 87 86 Respiratory Rate 26 H Blood Pressure 101/51 L 86/60 L Pulse Oximetry 98 Oxygen Delivery Oxygen Flow Rate 12/06/24 11:55 12/06/24 12:00 12/06/24 12:00 Temperature 36.6 C Pulse Rate 91 99 Respiratory Rate 22 H Blood Pressure 97/59 L Pulse Oximetry 100 100 Oxygen Delivery Nasal Cannula Oxygen Flow Rate 2 12/06/24 13:05 12/06/24 13:59 12/06/24 14:00 Temperature 36.8 C Pulse Rate 92 92 89 Respiratory Rate 18 Blood Pressure 89/62 L 89/62 L 96/60 L Pulse Oximetry 100 Oxygen Delivery Oxygen Flow Rate 12/06/24 14:00 12/06/24 16:00 12/06/24 16:00 Temperature 36.9 C Pulse Rate 86 90 85 Respiratory Rate 18 Blood Pressure 98/79 L Pulse Oximetry 99 Oxygen Delivery Oxygen Flow Rate 12/06/24 16:00 12/06/24 18:00 12/06/24 18:00 Temperature 36.9 C Pulse Rate 80 82 Respiratory Rate 19 Blood Pressure 104/65 Pulse Oximetry 100 100 Oxygen Delivery Nasal Cannula Oxygen Flow Rate 2 12/06/24 19:00 12/06/24 19:06 12/06/24 19:15 Temperature 36.7 C 36.7 C 36.7 C Pulse Rate 86 84 81 Respiratory Rate 23 H 23 H 22 H Blood Pressure 103/65 Pulse Oximetry 99 98 Oxygen Delivery Oxygen Flow Rate 12/06/24 19:30 12/06/24 19:31 12/06/24 19:34 Temperature 36.7 C 36.7 C 36.7 C Pulse Rate 89 86 84 Respiratory Rate 33 H 21 H 24 H Blood Pressure 104/48 L 104/48 L Pulse Oximetry Oxygen Delivery Oxygen Flow Rate 12/06/24 19:45 12/06/24 20:00 12/06/24 20:00 Temperature 36.7 C Pulse Rate 86 88 88 Respiratory Rate 22 H Blood Pressure 101/57 L 101/57 L Pulse Oximetry 98 Oxygen Delivery Oxygen Flow Rate 12/06/24 20:00 12/06/24 20:00 12/06/24 20:00 Temperature 36.7 C 36.7 C Pulse Rate 88 84 85 Respiratory Rate 24 H 25 H Blood Pressure 101/57 L Pulse Oximetry 98 Oxygen Delivery Oxygen Flow Rate 12/06/24 20:01 12/06/24 20:15 12/06/24 20:30 Temperature 36.7 C 36.8 C 36.8 C Pulse Rate 86 89 89 Respiratory Rate 25 H 26 H 23 H Blood Pressure 101/57 L 107/60 Pulse Oximetry 100 98 Oxygen Delivery Oxygen Flow Rate 12/06/24 20:31 12/06/24 20:45 12/06/24 21:00 Temperature 36.8 C 36.8 C 36.8 C Pulse Rate 87 93 88 Respiratory Rate 28 H 27 H 29 H Blood Pressure 99/57 L Pulse Oximetry 100 100 Oxygen Delivery Oxygen Flow Rate 12/06/24 21:01 12/06/24 21:15 12/06/24 21:30 Temperature 36.8 C 36.8 C Pulse Rate 89 87 Respiratory Rate 31 H 25 H Blood Pressure Pulse Oximetry 96 100 Oxygen Delivery Nasal Cannula Oxygen Flow Rate 2 12/06/24 21:30 12/06/24 21:31 12/06/24 21:45 Temperature 36.8 C 36.7 C 36.7 C Pulse Rate 84 87 88 Respiratory Rate 26 H 28 H 28 H Blood Pressure 95/55 L Pulse Oximetry Oxygen Delivery Oxygen Flow Rate 12/06/24 22:00 12/06/24 22:00 12/06/24 22:00 Temperature Pulse Rate 84 84 82 Respiratory Rate Blood Pressure 106/63 106/63 Pulse Oximetry Oxygen Delivery Oxygen Flow Rate 12/06/24 22:00 12/06/24 22:01 12/06/24 22:15 Temperature 36.7 C 36.7 C 36.7 C Pulse Rate 85 84 87 Respiratory Rate 19 21 H 24 H Blood Pressure 106/63 Pulse Oximetry 100 99 Oxygen Delivery Oxygen Flow Rate 12/06/24 22:30 12/06/24 22:31 12/06/24 22:45 Temperature 36.7 C 36.7 C 36.3 C L Pulse Rate 85 87 88 Respiratory Rate 19 27 H 27 H Blood Pressure 98/58 L Pulse Oximetry 95 95 Oxygen Delivery Oxygen Flow Rate 12/06/24 23:00 12/07/24 00:00 12/07/24 00:00 Temperature 36.7 C 36.6 C Pulse Rate 89 89 Respiratory Rate 19 Blood Pressure 104/52 L 104/52 L Pulse Oximetry 97 Oxygen Delivery Oxygen Flow Rate 12/07/24 00:00 12/07/24 00:00 12/07/24 00:09 Temperature Pulse Rate 87 89 Respiratory Rate Blood Pressure 104/52 L Pulse Oximetry 97 Oxygen Delivery Nasal Cannula Oxygen Flow Rate 2 12/07/24 01:06 12/07/24 01:23 12/07/24 01:45 Temperature Pulse Rate 86 86 76 Respiratory Rate Blood Pressure 116/54 L 116/64 110/63 Pulse Oximetry Oxygen Delivery Oxygen Flow Rate 12/07/24 02:15 12/07/24 02:15 12/07/24 02:16 Temperature Pulse Rate 89 84 89 Respiratory Rate 23 H Blood Pressure 93/80 L 99/63 L Pulse Oximetry 99 Oxygen Delivery Oxygen Flow Rate 12/07/24 02:17 12/07/24 04:00 12/07/24 04:00 Temperature Pulse Rate 85 87 87 Respiratory Rate Blood Pressure 99/63 L 100/55 L 100/65 Pulse Oximetry Oxygen Delivery Oxygen Flow Rate 12/07/24 04:00 12/07/24 04:00 12/07/24 04:00 Temperature 36.1 C L Pulse Rate 86 87 Respiratory Rate 16 Blood Pressure 100/55 L Pulse Oximetry 97 97 Oxygen Delivery Nasal Cannula Oxygen Flow Rate 2 12/07/24 06:00 12/07/24 06:00 12/07/24 06:00 Temperature 36.0 C L Pulse Rate 82 82 82 Respiratory Rate 16 Blood Pressure 97/66 L 97/66 L Pulse Oximetry 97 Oxygen Delivery Oxygen Flow Rate 12/07/24 07:51 12/07/24 07:57 12/07/24 08:00 Temperature 35.9 C L Pulse Rate 80 Respiratory Rate 13 Blood Pressure 93/46 L Pulse Oximetry 97 96 100 Oxygen Delivery Nasal Cannula Nasal Cannula Oxygen Flow Rate 2 2 12/07/24 08:00 12/07/24 09:20 Temperature Pulse Rate 81 81 Respiratory Rate Blood Pressure Pulse Oximetry Oxygen Delivery Oxygen Flow Rate Intake/Output Intake/Output: Intake & Output 12/04/24 12/05/24 12/06/24 12/07/24 23:59 23:59 23:59 23:59 Intake Total 100 1584.9 3037.7 984.5 Output Total 450 2075 1100 Balance 100 1134.9 962.7 -115.5 Meds/Results Medications: Active Medications Generic Name Dose Route Start Last Admin Trade Name Freq PRN Reason Stop Dose Admin Acetaminophen 650 mg 12/04/24 22:10 Acetaminophen 325 Mg Tablet PO Q4H PRN Mild Pain (1-3) or Fever Hydrocodone Bitart/Acetaminophen 1 tab 12/05/24 01:36 12/05/24 20:36 Hydrocodone/Acetaminophen (*Crx) 5-325 Mg Tablet PO 1 tab Q8H PRN Administration pain 7-10 Albuterol/Ipratropium 3 ml 12/06/24 08:00 Ipratropium 0.5 Mg/Albuterol Sulfate 2.5 Mg Ampul.Neb 3 Ml INHALATION Q6HRT PRN wheezine Amiodarone HCl 400 mg 12/07/24 09:15 12/07/24 09:20 Amiodarone Hcl 200 Mg Tablet PO 400 mg DAILY@0800 KRISTEN Administration Atorvastatin Calcium 20 mg 12/05/24 09:00 12/07/24 09:17 Atorvastatin 20 Mg Tablet PO 20 mg DAILY KRISTEN Administration Furosemide 80 mg 12/06/24 09:00 12/07/24 09:16 Furosemide Inj 100 Mg/10 Ml Vial IV PUSH 80 mg BID KRISTEN Administration Heparin Sodium (Porcine) 5,000 units 12/07/24 02:19 Heparin Sodium 5,000 Units/Ml Vial IV PUSH PRN PRN aPTT less than 55 seconds Heparin Sodium (Porcine) 2,500 units 12/07/24 02:19 Heparin Sodium 5,000 Units/Ml Vial IV PUSH PRN PRN aPTT 55 - 70 seconds Hydrocortisone Sodium Succinate 100 mg 12/06/24 14:00 12/07/24 05:05 Hydrocortisone Sodium Succinate 100 Mg/2 Ml Vial IV PUSH 100 mg Q8HR KRISTEN Administration Norepinephrine Bitartrate 8 mg in 250 mls @ 18.75 mls/hr 12/05/24 09:25 12/07/24 06:00 Levophed 8 Mg/D5w 250 Ml IV CONT 10 mcg/min .[id number] KRISTEN 18.75 mls/hr Titration Protocol 10 MCG/MIN Heparin Sodium/Dextrose 25,000 units in 250 mls @ 9 mls/hr 12/06/24 08:15 12/07/24 07:25 Heparin Sodium/D5w 100 Units/Ml IV CONT 900 units/hr .Q24H KRISTEN 9 mls/hr Titration Protocol 900 UNITS/HR Dobutamine HCl/Dextrose 250 mg in 250 mls @ 13.32 mls/hr 12/06/24 07:55 12/07/24 04:00 Dobutamine 250 Mg/D5w 250 Ml IV CONT Infused .[id number] KRISTEN Infusion 2.5 MCG/KG/MIN Albumin Human 100 mls @ 60 mls/hr 12/06/24 09:00 12/07/24 09:16 Albutein IVPB 60 mls/hr BID KRISTEN Administration Potassium Chloride 40 meq 12/07/24 08:00 12/07/24 09:16 Potassium Chloride 20 Meq Er Tablet PO 12/07/24 14:01 40 meq Q6H KRISTEN Administration Fluticasone/Salmeterol 2 puff 12/05/24 08:00 12/07/24 07:56 Fluticasone/Salmeterol 115-21 Mcg Inhaler 1 Puff INHALATION 2 puff Q12HRT KRISTEN Administration Sodium Chloride 10 ml 12/05/24 14:00 12/07/24 05:05 Central Line Flush IV PUSH 10 ml Q8HR KRISTEN Administration Sodium Chloride 10 ml 12/05/24 11:12 Central Line Flush IV PUSH PRN PRN with TPN bag changes Sodium Chloride 20 ml 12/05/24 11:12 12/07/24 05:06 Central Line Flush IV PUSH 20 ml PRN PRN Administration after blood draws Radiology Results: ITS Impressions Chest X-Ray 12/05/24 11:31 IMPRESSION: No acute cardiopulmonary pathology. Renal Ultrasound 12/05/24 15:17 IMPRESSION: No hydronephrosis or renal calculi. Findings suggesting medical renal disease. Chest CT 12/05/24 15:24 IMPRESSION: Findings consistent with pulmonary edema with a small right-sided pleural effusion. Additional findings worrisome for pulmonary hypertension, as detailed above. Trace anasarca. Intra-abdominal ascites Venous Doppler Study 12/05/24 16:06 IMPRESSION: Negative bilateral lower extremity venous US. No deep vein thrombosis. Labs Labs: Laboratory Results - last 24 hr 12/06/24 12/06/24 12/06/24 04:38 09:07 12:17 WBC RBC Hgb Hct MCV MCH MCHC RDW Plt Count MPV Immature Gran % (Auto) Neut % (Auto) Lymph % (Auto) Door % (Auto) Eos % (Auto) Baso % (Auto) Lymph # (Auto) Door # (Auto) Eos # (Auto) Baso # (Auto) Abs Immat Gran (auto) Absolute Neuts (auto) Absolute Nucleated RBC Nucleated RBC % PT 25.1 H D INR 2.3 APTT 42.3 H Sodium Potassium Chloride Carbon Dioxide Anion Gap BUN Creatinine Estim Creat Clear Calc Estimated GFR Glucose Calcium Phosphorus Magnesium Total Bilirubin AST ALT Alkaline Phosphatase Total Protein 6.3 Albumin TSH (Reflex) 9.980 H Free T4 1.41 Total T3 0.53 L Ur Random Creatinine 109 U Random Total Protein 92 H Ur Random Sodium Cancelled 25 Protein/Creatinin Ratio 844 H 12/06/24 12/06/24 12/07/24 15:15 22:36 05:07 WBC 5.3 RBC 4.42 Hgb 12.5 Hct 39.1 MCV 88.5 MCH 28.3 MCHC 32.0 RDW 16.1 H Plt Count 133 L MPV 8.4 Immature Gran % (Auto) 0.4 Neut % (Auto) 89.7 H Lymph % (Auto) 7.4 L Door % (Auto) 2.5 L Eos % (Auto) 0.0 Baso % (Auto) 0.0 L Lymph # (Auto) 0.39 L Door # (Auto) 0.1 Eos # (Auto) 0.0 Baso # (Auto) 0.0 Abs Immat Gran (auto) 0.02 Absolute Neuts (auto) 4.8 Absolute Nucleated RBC 0.000 Nucleated RBC % 0.0 PT INR APTT > 200.0 H* 61.7 H > 200.0 H* Sodium 131 L Potassium 3.3 L Chloride 95 L Carbon Dioxide 22 Anion Gap 14 H BUN 42 H Creatinine 2.33 H Estim Creat Clear Calc 25 Estimated GFR 22 L Glucose 160 H Calcium 9.4 Phosphorus 3.7 Magnesium 1.8 Total Bilirubin 2.9 H AST 402 H ALT 236 H Alkaline Phosphatase 96 Total Protein 6.7 Albumin 3.5 TSH (Reflex) Free T4 Total T3 Ur Random Creatinine U Random Total Protein Ur Random Sodium Protein/Creatinin Ratio Quality VTE Prophylaxis VTE prophylaxis: pharmacologic ordered
--- NOTE | 2024-12-07 11:11 | P.PNNP_ITS ---
Progress Note: A&P Assessment and Plan (1) Acute kidney injury: Code(s): N17.9 - Acute kidney failure, unspecified Status: Acute Assessment and Plan: * as noted on admission - creatinine 2.66mg/dl * suspect multifactorial: * hemodynamic instability/hypotension * decompensated heart failure * use of ARB and diuretics prior to admission * Afib with RVR * infection -- less likely * other (?) * evaluation to date noted: * renal ultrasound with medical renal disease * urine electrolytes prerenal (indicative of depressed EF given volume overloaded state) * urine eosinophils negative * CPK mildly elevated (but not enough to affect kidney function) * moderate proteinuria (~ 900mg) * suspect due to cardiorenal syndrome worsened by hemodynamic instability/severe hypotension * follow repeat labs and UOP (2) Stage 3b chronic kidney disease: Code(s): N18.32 - Chronic kidney disease, stage 3b Status: Acute Assessment and Plan: * creatinine running around 1.60 - 1.75mg/dl during September 2024 hospitalization at [facility] * earlier this month creatinine was noted to be 2.18mg/dl * creatinine in September 2023 was running 1.2 - 1.3mg/dl * suspect underlying CKD due cardiorenal syndrome given depressed EF/cardiomyopathy (3) Shortness of breath: Code(s): R06.02 - Shortness of breath Status: Acute Assessment and Plan: * due to several issues: * volume overload * acute on chronic CHF/cardiomyopathy * atrial fibrillation with RVR * possible pneumonia (less likely) * other (?) * no evidence of respiratory distress * on home oxygen requirements * CT of chest without infiltrates or pneumonia; evidence of pulmonary edema noted * antibiotics dc'd * continue attempts at diuresis * follow respiratory status (4) Acute on chronic systolic heart failure: Code(s): I50.23 - Acute on chronic systolic (congestive) heart failure Status: Acute Assessment and Plan: * as suggested by imaging, labs, and exam * Echo (09/27/24) at [facility] noted: * ejection fraction is visually estimated to be 10-15% * diastolic function E to E' ratio is >15 suggesting a high pulminary wedge pressure and LV diastolic dysfunction * no obvious thrombus noted * mildly dilated right and left atrium. * mild tricuspid regurgitation * estimated right ventricular systolic pressure is 33 mmHg * IVC is dilated * estimated RA pressure is 8 mmHg * normal cardiac catheterization noted (September 2024) * institution of GMDT was limited by hypotension during September 2024 hospitalization * Cardiology following * repeat Echo (12/05) reviewed: * four-chamber dilated cardiomyopathy * profound left and right ventricular systolic dysfunction ejection fraction 10-15% * mild MR resulting from annular dilation * mild aortic valve sclerosis * moderate to severe tricuspid valve regurgitation * moderate pulmonary hypertension, estimated pulmonary arterial systolic pressure is 57 mmHg * on dobutamine + IV diuretics along with IV albumin * better diuresis noted.... (5) Hypotension: Code(s): I95.9 - Hypotension, unspecified Status: Acute Assessment and Plan: * as noted since admission * probably related to severity of her cardiomyopathy (cardiogenic shock) * on levophed and dobutamine gtt * give lowish cortisol, stress dose steroids added * follow trend of hemodynamics (6) Hyponatremia: Code(s): E87.1 - Hypo-osmolality and hyponatremia Status: Acute Assessment and Plan: * slow improvement * presumably related to chronic CHF along with SANDRA/CKD and hypervolemia * sodium was running around 133 - 137 during September 2024 hospitalization at [facility] * evaluation noted: * TSH okay * cortisol on the lower end (but on steroids at this time) * urine electrolytes noted * SPEP/UPEP and serum/urine osmolality pending * follow trend of repeat sodiums (7) Atrial fibrillation with RVR: Code(s): I48.91 - Unspecified atrial fibrillation Status: Acute Assessment and Plan: * converted to NSR * off amiodarone gtt at this time * started oral amiodarone * repeat Echo noted * Cardiology following * on anticoagulation (heparin gtt) (8) Lower extremity edema: Code(s): R60.0 - Localized edema Status: Acute Assessment and Plan: * localized to her lower extremities * likely a manifestation of chronic CHF and current SANDRA on CKD * lower extremity dopplers negative * diuresis as tolerated * consider DARRYL-wraps/compression stocking and LE elevation Will continue to follow. L Subjective Date/time seen: 12/07/24 11:11 Interval history: Follow- up for acute kidney injury/acute renal failure on chronic kidney disease. Improvement in urine output as well as renal function/creatinine and sodium with interventions to date (levophed, dobutamine, IV diuretics); no apparent distress noted at the time of my visit; states breathing/respiratory status seems stable if not better; remains on levophed and dobutamine gtts; remains in normal sinus rhythm; no other acute issues/events overnight or earlier this morning. Exam 2 Narrative: General: WD/WN female in NAD Heart: normal S1 and S2; no rub Lungs: coarse with a few bibasilar crackles Abdomen: soft, nontender, nondistended, positive bowel sounds Extremities: no cyanosis or clubbing; 1 - 2+ edema Skin: warm and intact Objective Data Vital Signs Vital Signs: Vital Signs Temp Pulse Resp BP Pulse Ox O2 Del Method O2 Flow Rate 12/07/24 11:03 97.3 F L 95 22 H 91/49 L 100 12/07/24 10:00 79 105/53 L 12/07/24 10:00 97 98/61 L 12/07/24 10:00 90 12/07/24 10:00 81 16 101/54 L 96 12/07/24 09:20 81 12/07/24 08:00 86 122/90 12/07/24 08:00 89 93/46 L 12/07/24 08:00 81 12/07/24 08:00 100 Nasal Cannula 2 12/07/24 07:57 96 Nasal Cannula 2 12/07/24 07:51 96.6 F L 80 13 93/46 L 97 12/07/24 06:00 96.8 F L 82 16 97/66 L 97 12/07/24 06:00 82 12/07/24 06:00 82 97/66 L 12/07/24 04:00 97.0 F L 87 16 100/55 L 97 12/07/24 04:00 86 12/07/24 04:00 97 Nasal Cannula 2 12/07/24 04:00 87 100/65 12/07/24 04:00 87 100/55 L 12/07/24 02:17 85 99/63 L 12/07/24 02:16 89 99/63 L 12/07/24 02:15 84 23 H 93/80 L 99 12/07/24 02:15 89 12/07/24 01:45 76 110/63 12/07/24 01:23 86 116/64 12/07/24 01:06 86 116/54 L 12/07/24 00:09 89 104/52 L 12/07/24 00:00 87 12/07/24 00:00 97 Nasal Cannula 2 12/07/24 00:00 89 104/52 L 12/07/24 00:00 97.9 F 89 19 104/52 L 97 12/06/24 23:00 98.1 F 12/06/24 22:45 97.4 F L 88 27 H 95 12/06/24 22:31 98.1 F 87 27 H 95 12/06/24 22:30 98.1 F 85 19 98/58 L 12/06/24 22:15 98.1 F 87 24 H 12/06/24 22:01 98.1 F 84 21 H 99 12/06/24 22:00 98.1 F 85 19 106/63 100 12/06/24 22:00 82 12/06/24 22:00 84 106/63 12/06/24 22:00 84 106/63 12/06/24 21:45 98.0 F 88 28 H 12/06/24 21:31 98.1 F 87 28 H 12/06/24 21:30 98.2 F 84 26 H 95/55 L 12/06/24 21:30 100 Nasal Cannula 2 12/06/24 21:15 98.2 F 87 25 H 96 12/06/24 21:01 98.2 F 89 31 H 12/06/24 21:00 98.3 F 88 29 H 99/57 L 12/06/24 20:45 98.3 F 93 27 H 100 12/06/24 20:31 98.2 F 87 28 H 100 12/06/24 20:30 98.2 F 89 23 H 107/60 98 12/06/24 20:15 98.2 F 89 26 H 100 12/06/24 20:01 98.1 F 86 25 H 101/57 L 12/06/24 20:00 98.1 F 85 25 H 12/06/24 20:00 84 12/06/24 20:00 98.1 F 88 24 H 101/57 L 98 12/06/24 20:00 88 101/57 L 12/06/24 20:00 88 101/57 L 12/06/24 19:45 98.1 F 86 22 H 98 12/06/24 19:34 98.1 F 84 24 H 104/48 L 12/06/24 19:31 98.1 F 86 21 H 104/48 L 12/06/24 19:30 98.1 F 89 33 H 12/06/24 19:15 98.1 F 81 22 H 98 12/06/24 19:06 98.1 F 84 23 H 103/65 99 12/06/24 19:00 98.1 F 86 23 H 12/06/24 18:00 82 12/06/24 18:00 98.5 F 80 19 104/65 100 12/06/24 16:00 100 Nasal Cannula 2 12/06/24 16:00 85 12/06/24 16:00 98.4 F 90 18 98/79 L 99 Intake/Output Intake/Output: Intake & Output 12/04/24 12/05/24 12/06/24 12/07/24 23:59 23:59 23:59 23:59 Intake Total 100 1584.9 3037.7 984.5 Output Total 450 2075 1100 Balance 100 1134.9 962.7 -115.5 Meds/Results Medications: Active Medications Generic Name Dose Route Start Last Admin Trade Name Freq PRN Reason Stop Dose Admin Acetaminophen 650 mg 12/04/24 22:10 Acetaminophen 325 Mg Tablet PO Q4H PRN Mild Pain (1-3) or Fever Hydrocodone Bitart/Acetaminophen 1 tab 12/05/24 01:36 12/05/24 20:36 Hydrocodone/Acetaminophen (*Crx) 5-325 Mg Tablet PO 1 tab Q8H PRN Administration pain 7-10 Albuterol/Ipratropium 3 ml 12/06/24 08:00 Ipratropium 0.5 Mg/Albuterol Sulfate 2.5 Mg Ampul.Neb 3 Ml INHALATION Q6HRT PRN wheezine Amiodarone HCl 400 mg 12/07/24 09:15 12/07/24 09:20 Amiodarone Hcl 200 Mg Tablet PO 400 mg DAILY@0800 KRISTEN Administration Atorvastatin Calcium 20 mg 12/05/24 09:00 12/07/24 09:17 Atorvastatin 20 Mg Tablet PO 20 mg DAILY KRISTEN Administration Furosemide 80 mg 12/06/24 09:00 12/07/24 09:16 Furosemide Inj 100 Mg/10 Ml Vial IV PUSH 80 mg BID KRISTEN Administration Heparin Sodium (Porcine) 5,000 units 12/07/24 02:19 Heparin Sodium 5,000 Units/Ml Vial IV PUSH PRN PRN aPTT less than 55 seconds Heparin Sodium (Porcine) 2,500 units 12/07/24 02:19 Heparin Sodium 5,000 Units/Ml Vial IV PUSH PRN PRN aPTT 55 - 70 seconds Hydrocortisone Sodium Succinate 100 mg 12/06/24 14:00 12/07/24 05:05 Hydrocortisone Sodium Succinate 100 Mg/2 Ml Vial IV PUSH 100 mg Q8HR KRISTEN Administration Norepinephrine Bitartrate 8 mg in 250 mls @ 18.75 mls/hr 12/05/24 09:25 12/07/24 06:00 Levophed 8 Mg/D5w 250 Ml IV CONT 10 mcg/min .[id number] KRISTEN 18.75 mls/hr Titration Protocol 10 MCG/MIN Heparin Sodium/Dextrose 25,000 units in 250 mls @ 9 mls/hr 12/06/24 08:15 12/07/24 07:25 Heparin Sodium/D5w 100 Units/Ml IV CONT 900 units/hr .Q24H KRISTEN 9 mls/hr Titration Protocol 900 UNITS/HR Dobutamine HCl/Dextrose 250 mg in 250 mls @ 13.32 mls/hr 12/06/24 07:55 12/07/24 04:00 Dobutamine 250 Mg/D5w 250 Ml IV CONT Infused .[id number] KRISTEN Infusion 2.5 MCG/KG/MIN Albumin Human 100 mls @ 60 mls/hr 12/06/24 09:00 12/07/24 09:16 Albutein IVPB 60 mls/hr BID KRISTEN Administration Potassium Chloride 40 meq 12/07/24 08:00 12/07/24 09:16 Potassium Chloride 20 Meq Er Tablet PO 12/07/24 14:01 40 meq Q6H KRISTEN Administration Fluticasone/Salmeterol 2 puff 12/05/24 08:00 12/07/24 07:56 Fluticasone/Salmeterol 115-21 Mcg Inhaler 1 Puff INHALATION 2 puff Q12HRT KRISTEN Administration Sodium Chloride 10 ml 12/05/24 14:00 12/07/24 05:05 Central Line Flush IV PUSH 10 ml Q8HR KRISTEN Administration Sodium Chloride 10 ml 12/05/24 11:12 Central Line Flush IV PUSH PRN PRN with TPN bag changes Sodium Chloride 20 ml 12/05/24 11:12 12/07/24 05:06 Central Line Flush IV PUSH 20 ml PRN PRN Administration after blood draws Radiology Results: ITS Impressions Chest X-Ray 12/05/24 11:31 IMPRESSION: No acute cardiopulmonary pathology. Renal Ultrasound 12/05/24 15:17 IMPRESSION: No hydronephrosis or renal calculi. Findings suggesting medical renal disease. Chest CT 12/05/24 15:24 IMPRESSION: Findings consistent with pulmonary edema with a small right-sided pleural effusion. Additional findings worrisome for pulmonary hypertension, as detailed above. Trace anasarca. Intra-abdominal ascites Venous Doppler Study 12/05/24 16:06 IMPRESSION: Negative bilateral lower extremity venous US. No deep vein thrombosis. Labs Labs: Laboratory Tests 12/07/24 05:07 12/07/24 05:07 Calcium 9.4 Phosphorus 3.7 Magnesium 1.8 Total Bilirubin 2.9 H AST 402 H ALT 236 H Alkaline Phosphatase 96 Total Protein 6.7 Albumin 3.5
[2024-12-07] MEDS: HEPARIN SOD/D5W 100 UNITS/ML 25,000 UNITS/250 ML BAG 9 UNITS IV CONT (11:26)
[2024-12-07] MEDS: NOREPINEPHRINE 8 MG/D5W 250 ML 8 MG/250 ML BAG 18.75 MG IV CONT (13:54)
[2024-12-07 14:24] LABS: Partial Thromboplastin Time 77.9 Seconds (22.3-36.8)
[2024-12-07] MEDS: HYDROcodone/acetaminophen (*CRX) 5-325 MG TABLET 1 TAB PO (21:28)
[2024-12-07 21:58] LABS: Partial Thromboplastin Time 62.1 Seconds (22.3-36.8)
[2024-12-07] MEDS: HEPARIN SODIUM 5,000 UNITS/ML VIAL 2500 UNITS IV PUSH (23:46)
[2024-12-08] VITALS (46 sets, daily range): BP systolic 72–118; BP diastolic 48–95; PULSE 83–102; RESP 16–29; TEMP 36.2–36.6; O2SAT 93–98
[2024-12-08] MEDS: NOREPINEPHRINE 8 MG/D5W 250 ML 8 MG/250 ML BAG 30 MG IV CONT (01:03)
[2024-12-08 05:41] LABS: Hematocrit 40.7 % (37.0-47.0); Hemoglobin 13.1 g/dL (12.0-15.0); Mean Corpuscular HGB Conc 32.2 g/dl (32-36); Mean Corpuscular Hemoglobin 28.6 pg (26-34); Mean Corpuscular Volume 88.9 fl (80-100); Mean Platelet Volume 8.8 fl (7.4-10.4); Platelet Count Result 129 k/mm3 (150-375); Red Blood Count 4.58 M/mm3 (4.2-5.4); Red Cell Distribution Width 16.4 % (11.5-14.5); White Blood Count 11.4 K/mm3 (4.5-10.0)
[2024-12-08 05:55] LABS: Partial Thromboplastin Time 81.2 Seconds (22.3-36.8)
--- NOTE | 2024-12-08 05:55 | PC.NURSE ---
Dobutamine rate updated per daily weight.
[2024-12-08 06:02] LABS: Alanine Aminotransferase 188 U/L (6-35); Albumin Level 4.1 g/dL (3.5-5.1); Alkaline Phosphatase 86 U/L (38-126); Anion Gap 15 mmol/L (4-12); Aspartate Amino Transferase 222 U/L (14-36); Bilirubin,Total 2.9 mg/dL (0.2-1.3); Blood Urea Nitrogen 43 mg/dL (7-17); Calcium 9.5 mg/dL (8.4-10.2); Carbon Dioxide 23 mmol/L (22-30); Chloride 92 mmol/L (98-107); Estimated CRCL calculation 28 ml/min; Estimated Glomerular Filt Rate 23; Glucose 143 mg/dL (65-110); Magnesium 1.8 mg/dL (1.6-2.3); Phosphorus 3.2 mg/dL (2.5-4.5); Potassium 3.4 mmol/L (3.4-5.0); Sodium 130 mmol/L (137-145); Total Protein 7.1 g/dL (6.3-8.2)
[2024-12-08] MEDS: DOBUTamine 250 MG/D5W 250 ML 250 MG/250 ML BAG 13.32 MG IV CONT ×2 (06:09→21:29)
[2024-12-08] MEDS: HYDROCORTISONE SODIUM SUCCINATE 100 MG/2 ML VIAL IV PUSH ×3 (06:10→21:23)
[2024-12-08] MEDS: CENTRAL LINE FLUSH 10 ML IV PUSH ×3 (06:11→21:23)
[2024-12-08] MEDS: CENTRAL LINE FLUSH 20 ML IV PUSH (06:11)
[2024-12-08] MEDS: FLUTICASONE/SALMETEROL 115-21 MCG INHALER 1 PUFF 2 PUFF INHALATION ×2 (07:33→20:08)
--- NOTE | 2024-12-08 08:52 | P.PNINT_ITS ---
Progress Note: A&P Assessment and Plan (1) Shortness of breath: Code(s): R06.02 - Shortness of breath Status: Acute Assessment and Plan: Patient presented with shortness of breath without history of fever and dry cough Likely secondary to congestive heart failure and presented with AFib with RVR. She but she is only on 2 L nasal cannula which is her home oxygen She does not appear in any respiratory distress. Exam as above Chest x-ray showed air bronchograms in left superior hilum suggestive of early infiltrate. She has normal WBC and is afebrile. She was started on empiric antibiotics. But her procalcitonin level was low and CT scan did not show any infiltrates or findings suggestive of pneumonia. Antibiotics discontinued Continue Lasix and albumin See below (2) Acute exacerbation of CHF (congestive heart failure): Code(s): I50.9 - Heart failure, unspecified Status: Acute Assessment and Plan: Patient has history of congestive heart failure. Echo in 2020 showed EF 20-25% she had a recent echocardiogram which showed 10% EF. Echo on this hospitalization ordered and pending. She had a negative cardiac catheterization as per Cardiology records Cardiology following Echo Summary 1. Four-chamber dilated cardiomyopathy. 2. Profound left and right ventricular systolic dysfunction ejection fraction 10-15%. 3. Mild MR resulting from annular dilation. 4. At least moderate pulmonary hypertension based on tricuspid regurgitant velocity After discussion with Cardiology patient was started on dobutamine for post to inotropic effect to allow diuresis in light of kidney injury Continue dobutamine and Lasix and albumin (3) Non-ST elevation NV (NSTEMI): Code(s): I21.4 - Non-ST elevation (NSTEMI) myocardial infarction Status: Acute Assessment and Plan: Mild elevation in troponin with no chest pain. EKG reviewed Patient presented with AFib with RVR As per Cardiology recurrence patient had a cardiac catheterization in recent past which was negative any coronary disease Patient has not been on anticoagulation as an outpatient due to history of frequent and significant nose bleeds. Patient was started on heparin drip at this time for AFib with RVR and closely monitor. Continue Continue statin Not on beta-saba Rian or ARB due to low blood pressure and elevated creatinine (4) Pneumonia: Code(s): J18.9 - Pneumonia, unspecified organism Status: Acute Assessment and Plan: See above (5) Hyperlipidemia: Code(s): E78.5 - Hyperlipidemia, unspecified Status: Acute Assessment and Plan: Continue atorvastatin (6) Elevated serum creatinine: Code(s): R79.89 - Other specified abnormal findings of blood chemistry Status: Acute Assessment and Plan: Last recorded creatinine was 1.5 in 2022 presented with creatinine of 2.66. Two weeks ago creatinine was 2.18 I suspect patient has chronic kidney disease and may have acute kidney injury Renal ultrasound showed medical renal disease CK minimally elevated Betts and accurate I&Os Nephrology evaluated the patient and following will defer further workup for renal failure to Nephrology Continue Lasix and albumin Monitor urine output electrolytes and creatinine (7) Lower extremity edema: Code(s): R60.0 - Localized edema Status: Acute Assessment and Plan: Likely secondary to congestive heart failure and kidney dysfunction Diuresis as above Lower extremity Dopplers negative for DVT (8) Atrial fibrillation with RVR: Code(s): I48.91 - Unspecified atrial fibrillation Status: Acute Assessment and Plan: Presented with AFib with RVR. Not on any antiplatelet or anticoagulation as an outpatient Patient was started on amiodarone infusion at the time of admission as patient blood pressure was low for rate control Echo ordered and reviewed Patient does not take aspirin due to history of allergy. 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 I spoke to patient and discussed risks and benefits. We has decided to start with trial of heparin infusion to see if patient tolerates without any complications. Amiodarone infusion was discontinued as patient has converted to sinus rhythm. Cardiology sees started p.o. amiodarone 12/08 patient went back into AFib but ventricular rate is controlled. Continue to monitor. Will stop dobutamine if the tachycardia worsens (9) Cardiogenic shock: Code(s): R57.0 - Cardiogenic shock Status: Acute Assessment and Plan: Continue Levophed and dobutamine for blood pressure support The patient's cortisol level was low hence started on hydrocortisone stress dose (10) Electrolyte abnormality: Code(s): E87.8 - Other disorders of electrolyte and fluid balance, not elsewhere classified Status: Acute Assessment and Plan: Replace low potassium (11) Hypothyroidism: Code(s): E03.9 - Hypothyroidism, unspecified Status: Acute Assessment and Plan: High TSH with low T3 Start levothyroxine at 50 mcg Plan DVT prophylaxis -heparin infusion Nutrition -diet ordered Code Status -patient wishes to be DNR DNI she does not want to go on a ventilator or receive CPR in the event of cardiac arrest. She states she does not have any family member in town. She is single and has been estranged from her children. Most of her relatives live in [place] Total Critical Care Time - 30 minutes Due to a high probability of clinically significant, life threatening deteri oration, the patient required my highest level of preparedness to intervene emergently and I personally spent this critical care time directly and personally managing the patient. This critical care time included obtaining a history; examining the patient; pulse oximetry; ordering and review of studies; arranging urgent treatment with development of a management plan; evaluation of patient's response to treatment; frequent reassessment; and discussions with other providers. It was exclusive of separately billable procedures and treating other patients and teaching time. Please see Assessment and Plan section and the rest of the note for further information on patient assessment and treatment Subjective Date/time seen: 12/08/24 Overnight events reviewed. Afebrile. On 2 L nasal cannula She has gone back into AFib with ventricular rate is controlled Continues to be on Levophed and dobutamine She denies any complaints and states he feels fine otherwise. Review of systems positive for being weak tired and swelling in the legs. All the systems were reviewed and were negative. Urine output remains adequate in response to diuretics Review of Systems Review of Systems: All systems reviewed & are unremarkable except as noted in HPI and below (HPI) Exam Narrative: General: Pt is alert awake and in NAD Lungs/Chest: Trachea central Clear BS B/L, few crackles at the bases right more than left. No respiratory distress, no use of accessory muscles, no significant wheezing Cardiac: Irregular rate and rhythm Normal S1 S2. No murmurs Circulation: Pedal pulses are intact and symmetrical. Abdomen: Normal bowel sounds.. Soft. NT. ND. Extremities: Bilateral pitting edema present :. Betts catheter in place Neurologic: Follows commands. Moves all 4 extremities PERRL AO x3 Skin: Intertrigo in the inguinal folds Objective Data Vital Signs Vital Signs: Vital Signs - 24 hr 12/07/24 09:20 12/07/24 10:00 12/07/24 10:00 Temperature Pulse Rate 81 81 90 Respiratory Rate 16 Blood Pressure 101/54 L Pulse Oximetry 96 Oxygen Delivery Oxygen Flow Rate Fraction of Inspired Oxygen 12/07/24 10:00 12/07/24 10:00 12/07/24 11:53 Temperature 36.3 C L Pulse Rate 97 79 95 Respiratory Rate 22 H Blood Pressure 98/61 L 105/53 L 91/49 L Pulse Oximetry 100 Oxygen Delivery Oxygen Flow Rate Fraction of Inspired Oxygen 12/07/24 12:00 12/07/24 12:00 12/07/24 12:00 Temperature Pulse Rate 86 68 Respiratory Rate Blood Pressure 122/90 93/56 L Pulse Oximetry 100 Oxygen Delivery Nasal Cannula Oxygen Flow Rate 2 Fraction of Inspired Oxygen 12/07/24 12:00 12/07/24 13:54 12/07/24 13:54 Temperature Pulse Rate 95 93 93 Respiratory Rate Blood Pressure 100/68 100/68 Pulse Oximetry Oxygen Delivery Oxygen Flow Rate Fraction of Inspired Oxygen 12/07/24 14:00 12/07/24 14:00 12/07/24 14:00 Temperature 36.4 C Pulse Rate 68 96 90 Respiratory Rate 17 Blood Pressure 111/54 L 111/54 L Pulse Oximetry 100 Oxygen Delivery Oxygen Flow Rate Fraction of Inspired Oxygen 12/07/24 16:00 12/07/24 16:00 12/07/24 16:00 Temperature 36.4 C Pulse Rate 87 94 94 Respiratory Rate 23 H Blood Pressure 96/62 L 96/62 L Pulse Oximetry 100 Oxygen Delivery Oxygen Flow Rate Fraction of Inspired Oxygen 12/07/24 16:00 12/07/24 16:00 12/07/24 17:26 Temperature Pulse Rate 94 96 Respiratory Rate Blood Pressure 96/62 L 87/38 L Pulse Oximetry 100 Oxygen Delivery Nasal Cannula Oxygen Flow Rate 2 Fraction of Inspired Oxygen 12/07/24 18:00 12/07/24 18:00 12/07/24 18:00 Temperature Pulse Rate 87 91 88 Respiratory Rate 24 H Blood Pressure 95/55 L 99/66 L Pulse Oximetry 96 Oxygen Delivery Oxygen Flow Rate Fraction of Inspired Oxygen 12/07/24 20:00 12/07/24 20:00 12/07/24 20:00 Temperature 36.6 C Pulse Rate 95 95 95 Respiratory Rate 26 H Blood Pressure 98/65 L 98/65 L 98/65 L Pulse Oximetry 98 Oxygen Delivery Oxygen Flow Rate Fraction of Inspired Oxygen 12/07/24 20:00 12/07/24 20:00 12/07/24 20:04 Temperature Pulse Rate 92 Respiratory Rate Blood Pressure Pulse Oximetry 98 100 Oxygen Delivery Nasal Cannula Nasal Cannula Oxygen Flow Rate 2 2 Fraction of Inspired Oxygen 12/07/24 20:30 12/07/24 20:31 12/07/24 20:33 Temperature 36.7 C 36.7 C 36.7 C Pulse Rate 88 106 H 88 Respiratory Rate 25 H 16 23 H Blood Pressure 102/37 L 91/54 L Pulse Oximetry 98 100 98 Oxygen Delivery Oxygen Flow Rate Fraction of Inspired Oxygen 12/07/24 20:45 12/07/24 20:47 12/07/24 20:53 Temperature 36.8 C 36.7 C 36.7 C Pulse Rate 88 97 94 Respiratory Rate 22 H 20 23 H Blood Pressure 62/33 L 101/60 Pulse Oximetry 97 96 96 Oxygen Delivery Oxygen Flow Rate Fraction of Inspired Oxygen 12/07/24 21:00 12/07/24 21:01 12/07/24 21:15 Temperature 36.7 C 36.7 C 36.7 C Pulse Rate 96 84 110 H Respiratory Rate 22 H 26 H 26 H Blood Pressure 98/69 L 83/61 L Pulse Oximetry 97 97 96 Oxygen Delivery Oxygen Flow Rate Fraction of Inspired Oxygen 12/07/24 21:16 12/07/24 21:17 12/07/24 21:23 Temperature 36.3 C L 36.6 C Pulse Rate 93 92 92 Respiratory Rate 24 H 28 H Blood Pressure 85/45 L 64/52 L Pulse Oximetry 97 Oxygen Delivery Oxygen Flow Rate Fraction of Inspired Oxygen 12/07/24 21:24 12/07/24 21:30 12/07/24 21:30 Temperature 36.8 C 36.8 C Pulse Rate 90 92 93 Respiratory Rate 20 27 H Blood Pressure 64/52 L 89/55 L 89/55 L Pulse Oximetry 99 96 Oxygen Delivery Oxygen Flow Rate Fraction of Inspired Oxygen 12/07/24 21:31 12/07/24 21:45 12/07/24 21:45 Temperature 36.8 C 36.7 C Pulse Rate 88 90 89 Respiratory Rate 34 H 23 H Blood Pressure 95/49 L 95/49 L Pulse Oximetry 97 Oxygen Delivery Oxygen Flow Rate Fraction of Inspired Oxygen 12/07/24 21:46 12/07/24 22:00 12/07/24 22:00 Temperature 36.8 C 36.7 C Pulse Rate 86 93 92 Respiratory Rate 22 H 20 Blood Pressure 97/63 L 97/63 L Pulse Oximetry 99 97 Oxygen Delivery Oxygen Flow Rate Fraction of Inspired Oxygen 12/07/24 22:00 12/07/24 22:00 12/07/24 22:01 Temperature 36.7 C 36.7 C Pulse Rate 90 96 94 Respiratory Rate 27 H 22 H Blood Pressure 97/63 L Pulse Oximetry Oxygen Delivery Oxygen Flow Rate Fraction of Inspired Oxygen 12/07/24 22:15 12/07/24 22:16 12/07/24 22:30 Temperature 36.7 C 36.7 C 36.7 C Pulse Rate 96 87 93 Respiratory Rate 25 H 23 H 29 H Blood Pressure 111/70 Pulse Oximetry 96 Oxygen Delivery Oxygen Flow Rate Fraction of Inspired Oxygen 12/07/24 22:31 12/07/24 22:45 12/07/24 22:46 Temperature 36.7 C 36.6 C 36.6 C Pulse Rate 94 99 93 Respiratory Rate 24 H 28 H 20 Blood Pressure 104/62 97/62 L Pulse Oximetry 96 96 97 Oxygen Delivery Oxygen Flow Rate Fraction of Inspired Oxygen 12/07/24 23:00 12/07/24 23:01 12/07/24 23:15 Temperature 36.6 C 36.6 C 36.6 C Pulse Rate 107 H 84 89 Respiratory Rate 23 H 24 H 21 H Blood Pressure 104/89 Pulse Oximetry 95 94 Oxygen Delivery Oxygen Flow Rate Fraction of Inspired Oxygen 12/07/24 23:16 12/07/24 23:30 12/07/24 23:31 Temperature 36.6 C 36.6 C 36.6 C Pulse Rate 96 90 97 Respiratory Rate 29 H 22 H 18 Blood Pressure 86/54 L 97/65 L Pulse Oximetry 96 96 Oxygen Delivery Oxygen Flow Rate Fraction of Inspired Oxygen 12/07/24 23:45 12/07/24 23:46 12/08/24 00:00 Temperature 36.6 C 36.5 C Pulse Rate 110 H 100 93 Respiratory Rate 21 H 24 H Blood Pressure 108/90 97/64 L Pulse Oximetry 96 96 Oxygen Delivery Oxygen Flow Rate Fraction of Inspired Oxygen 12/08/24 00:00 12/08/24 00:00 12/08/24 00:00 Temperature Pulse Rate 93 97 Respiratory Rate Blood Pressure 97/64 L Pulse Oximetry 98 Oxygen Delivery Nasal Cannula Oxygen Flow Rate 2 Fraction of Inspired Oxygen 12/08/24 00:00 12/08/24 00:00 12/08/24 00:01 Temperature 36.5 C 36.6 C 36.5 C Pulse Rate 93 89 96 Respiratory Rate 27 H 20 28 H Blood Pressure 97/64 L 77/51 L Pulse Oximetry 96 97 97 Oxygen Delivery Oxygen Flow Rate Fraction of Inspired Oxygen 12/08/24 00:02 12/08/24 00:15 12/08/24 00:16 Temperature 36.5 C 36.5 C 36.5 C Pulse Rate 93 95 99 Respiratory Rate 22 H 19 22 H Blood Pressure 97/64 L 103/63 Pulse Oximetry 97 Oxygen Delivery Oxygen Flow Rate Fraction of Inspired Oxygen 12/08/24 00:18 12/08/24 00:27 12/08/24 00:30 Temperature 36.4 C 36.4 C Pulse Rate 84 93 99 Respiratory Rate 21 H 26 H Blood Pressure 93/63 L 103/63 104/65 Pulse Oximetry Oxygen Delivery Oxygen Flow Rate Fraction of Inspired Oxygen 12/08/24 00:31 12/08/24 00:45 12/08/24 00:46 Temperature 36.4 C 36.4 C 36.4 C Pulse Rate 91 90 85 Respiratory Rate 23 H 21 H 21 H Blood Pressure 95/59 L Pulse Oximetry Oxygen Delivery Oxygen Flow Rate Fraction of Inspired Oxygen 12/08/24 01:00 12/08/24 01:01 12/08/24 01:03 Temperature 36.4 C L 36.4 C Pulse Rate 92 89 84 Respiratory Rate 26 H 25 H Blood Pressure 93/63 L 93/63 L Pulse Oximetry Oxygen Delivery Oxygen Flow Rate Fraction of Inspired Oxygen 12/08/24 01:15 12/08/24 01:16 12/08/24 01:30 Temperature 36.4 C 36.4 C 36.4 C Pulse Rate 102 H 97 90 Respiratory Rate 24 H 16 26 H Blood Pressure 104/74 114/77 Pulse Oximetry 94 96 95 Oxygen Delivery Oxygen Flow Rate Fraction of Inspired Oxygen 12/08/24 01:31 12/08/24 01:45 12/08/24 01:46 Temperature 36.4 C 36.4 C 36.4 C Pulse Rate 89 95 95 Respiratory Rate 28 H 29 H 19 Blood Pressure 102/69 Pulse Oximetry 96 95 95 Oxygen Delivery Oxygen Flow Rate Fraction of Inspired Oxygen 12/08/24 02:00 12/08/24 02:00 12/08/24 02:00 Temperature 36.4 C Pulse Rate 87 87 90 Respiratory Rate 25 H Blood Pressure 103/74 103/74 103/74 Pulse Oximetry 96 Oxygen Delivery Oxygen Flow Rate Fraction of Inspired Oxygen 12/08/24 03:20 12/08/24 04:00 12/08/24 04:00 Temperature 36.4 C L Pulse Rate 83 88 88 Respiratory Rate 19 Blood Pressure 117/79 114/65 114/65 Pulse Oximetry 95 Oxygen Delivery Oxygen Flow Rate Fraction of Inspired Oxygen 12/08/24 04:00 12/08/24 05:00 12/08/24 05:15 Temperature Pulse Rate 89 88 Respiratory Rate Blood Pressure 114/65 Pulse Oximetry 95 Oxygen Delivery Nasal Cannula Oxygen Flow Rate 2 Fraction of Inspired Oxygen 12/08/24 06:06 12/08/24 06:06 12/08/24 06:09 Temperature 36.3 C L Pulse Rate 93 93 87 Respiratory Rate 23 H Blood Pressure 100/61 100/61 Pulse Oximetry 93 Oxygen Delivery Oxygen Flow Rate Fraction of Inspired Oxygen 12/08/24 06:10 12/08/24 07:33 12/08/24 07:33 Temperature Pulse Rate 95 102 H Respiratory Rate 24 H Blood Pressure 100/61 Pulse Oximetry 97 Oxygen Delivery Nasal Cannula Oxygen Flow Rate 2 Fraction of Inspired Oxygen 28 12/08/24 08:00 Temperature 36.3 C L Pulse Rate 93 Respiratory Rate 20 Blood Pressure 109/65 Pulse Oximetry 95 Oxygen Delivery Oxygen Flow Rate Fraction of Inspired Oxygen Intake/Output Intake/Output: Intake & Output 12/05/24 12/06/24 12/07/24 12/08/24 23:59 23:59 23:59 23:59 Intake Total 1584.9 3037.7 2318.5 729.3 Output Total 450 2075 2400 550 Balance 1134.9 962.7 -81.5 179.3 Meds/Results Medications: Active Medications Generic Name Dose Route Start Last Admin Trade Name Freq PRN Reason Stop Dose Admin Acetaminophen 650 mg 12/04/24 22:10 Acetaminophen 325 Mg Tablet PO Q4H PRN Mild Pain (1-3) or Fever Hydrocodone Bitart/Acetaminophen 1 tab 12/05/24 01:36 12/07/24 21:28 Hydrocodone/Acetaminophen (*Crx) 5-325 Mg Tablet PO 1 tab Q8H PRN Administration pain 7-10 Albuterol/Ipratropium 3 ml 12/06/24 08:00 Ipratropium 0.5 Mg/Albuterol Sulfate 2.5 Mg Ampul.Neb 3 Ml INHALATION Q6HRT PRN wheezine Amiodarone HCl 400 mg 12/07/24 09:15 12/07/24 09:20 Amiodarone Hcl 200 Mg Tablet PO 400 mg DAILY@0800 KRISTEN Administration Atorvastatin Calcium 20 mg 12/05/24 09:00 12/07/24 09:17 Atorvastatin 20 Mg Tablet PO 20 mg DAILY KRISTEN Administration Furosemide 80 mg 12/06/24 09:00 12/07/24 17:26 Furosemide Inj 100 Mg/10 Ml Vial IV PUSH 80 mg BID KRISTEN Administration Heparin Sodium (Porcine) 5,500 units 12/08/24 05:57 Heparin Sodium 5,000 Units/Ml Vial IV PUSH PRN PRN aPTT less than 55 seconds Heparin Sodium (Porcine) 3,000 units 12/08/24 05:57 Heparin Sodium 5,000 Units/Ml Vial IV PUSH PRN PRN aPTT 55 - 70 seconds Hydrocortisone Sodium Succinate 100 mg 12/06/24 14:00 12/08/24 06:10 Hydrocortisone Sodium Succinate 100 Mg/2 Ml Vial IV PUSH 100 mg Q8HR KRISTEN Administration Norepinephrine Bitartrate 8 mg in 250 mls @ 28.125 mls/hr 12/05/24 09:25 12/08/24 06:10 Levophed 8 Mg/D5w 250 Ml IV CONT 15 mcg/min .Q8H54M KRISTEN 28.13 mls/hr Titration Protocol 15 MCG/MIN Heparin Sodium/Dextrose 25,000 units in 250 mls @ 10 mls/hr 12/06/24 08:15 12/08/24 05:57 Heparin Sodium/D5w 100 Units/Ml IV CONT 1,000 units/hr .Q24H KRISTEN 10 mls/hr Titration Protocol 1,000 UNITS/HR Dobutamine HCl/Dextrose 250 mg in 250 mls @ 15.15 mls/hr 12/06/24 07:55 12/08/24 06:09 Dobutamine 250 Mg/D5w 250 Ml IV CONT 2.5 mcg/kg/min .[id number] KRISTEN 13.32 mls/hr Administration 2.5 MCG/KG/MIN Albumin Human 100 mls @ 60 mls/hr 12/06/24 09:00 12/07/24 17:26 Albutein IVPB 60 mls/hr BID KRISTEN Administration Magnesium Sulfate 2 gm in 50 mls @ 25 mls/hr 12/08/24 08:06 Magnesium Sulf 2 Gm/Water 50ml IVPB 12/08/24 10:05 ONCE ONE Levothyroxine Sodium 50 mcg 12/08/24 08:15 Levothyroxine Sodium 50 Mcg Tablet PO DAILY@0630 KRISTEN Potassium Chloride 40 meq 12/08/24 08:05 Potassium Chloride 20 Meq Er Tablet PO 12/08/24 14:06 Q6H KRISTEN Fluticasone/Salmeterol 2 puff 12/05/24 08:00 12/08/24 07:33 Fluticasone/Salmeterol 115-21 Mcg Inhaler 1 Puff INHALATION 2 puff Q12HRT KRISTEN Administration Sodium Chloride 10 ml 12/05/24 14:00 12/08/24 06:11 Central Line Flush IV PUSH 10 ml Q8HR KRISTEN Administration Sodium Chloride 10 ml 12/05/24 11:12 Central Line Flush IV PUSH PRN PRN with TPN bag changes Sodium Chloride 20 ml 12/05/24 11:12 12/08/24 06:11 Central Line Flush IV PUSH 20 ml PRN PRN Administration after blood draws Radiology Results: ITS Impressions Chest X-Ray 12/05/24 11:31 IMPRESSION: No acute cardiopulmonary pathology. Renal Ultrasound 12/05/24 15:17 IMPRESSION: No hydronephrosis or renal calculi. Findings suggesting medical renal disease. Chest CT 12/05/24 15:24 IMPRESSION: Findings consistent with pulmonary edema with a small right-sided pleural effusion. Additional findings worrisome for pulmonary hypertension, as detailed above. Trace anasarca. Intra-abdominal ascites Venous Doppler Study 12/05/24 16:06 IMPRESSION: Negative bilateral lower extremity venous US. No deep vein thrombosis. Labs Labs: Laboratory Results - last 24 hr 12/07/24 12/07/24 12/08/24 13:53 21:31 05:31 WBC 11.4 H RBC 4.58 Hgb 13.1 Hct 40.7 MCV 88.9 MCH 28.6 MCHC 32.2 RDW 16.4 H Plt Count 129 L MPV 8.8 APTT 77.9 H 62.1 H 81.2 H Sodium 130 L Potassium 3.4 Chloride 92 L Carbon Dioxide 23 Anion Gap 15 H BUN 43 H Creatinine 2.20 H Estim Creat Clear Calc 28 Estimated GFR 23 L Glucose 143 H Calcium 9.5 Phosphorus 3.2 Magnesium 1.8 Total Bilirubin 2.9 H AST 222 H ALT 188 H Alkaline Phosphatase 86 Total Protein 7.1 Albumin 4.1 Quality VTE Prophylaxis VTE prophylaxis: pharmacologic ordered
[2024-12-08] MEDS: FUROSEMIDE INJ 100 MG/10 ML VIAL 80 MG IV PUSH ×2 (09:35→18:13)
[2024-12-08] MEDS: ALBUMIN HUMAN 25% 25 GM/100 ML 100 ML IVPB ×2 (09:35→16:18)
[2024-12-08] MEDS: LEVOTHYROXINE SODIUM 50 MCG TABLET PO (09:36)
[2024-12-08] MEDS: POTASSIUM CHLORIDE 20 MEQ ER TABLET 40 MEQ PO ×2 (09:36→15:21)
[2024-12-08] MEDS: AMIODARONE HCL 200 MG TABLET 400 MG PO (09:36)
[2024-12-08] MEDS: MAGNESIUM SULF 2 GM/WATER 50ML 2 GM/50 ML BAG IVPB (09:36)
[2024-12-08] MEDS: ATORVASTATIN 20 MG TABLET PO (09:36)
[2024-12-08] MEDS: NOREPINEPHRINE 8 MG/D5W 250 ML 8 MG/250 ML BAG 28.13 MG IV CONT ×2 (09:37→19:20)
--- NOTE | 2024-12-08 10:15 | P.PNNP_ITS ---
Progress Note: A&P Assessment and Plan (1) Acute kidney injury: Code(s): N17.9 - Acute kidney failure, unspecified Status: Acute Assessment and Plan: * slow improvement noted * as noted on admission - creatinine 2.66mg/dl * suspect multifactorial: * hemodynamic instability/hypotension * decompensated heart failure * use of ARB and diuretics prior to admission * Afib with RVR * infection -- less likely * other (?) * evaluation to date noted: * renal ultrasound with medical renal disease * urine electrolytes prerenal (indicative of depressed EF given volume overloaded state) * urine eosinophils negative * CPK mildly elevated (but not enough to affect kidney function) * moderate proteinuria (~ 900mg) * suspect due to cardiorenal syndrome worsened by hemodynamic instability/severe hypotension * follow repeat labs and UOP (2) Stage 3b chronic kidney disease: Code(s): N18.32 - Chronic kidney disease, stage 3b Status: Acute Assessment and Plan: * creatinine running around 1.60 - 1.75mg/dl during September 2024 hospitalization at [facility] * earlier this month creatinine was noted to be 2.18mg/dl * creatinine in September 2023 was running 1.2 - 1.3mg/dl * suspect underlying CKD due cardiorenal syndrome given depressed EF/cardiomyopathy (3) Shortness of breath: Code(s): R06.02 - Shortness of breath Status: Acute Assessment and Plan: * due to several issues: * volume overload * acute on chronic CHF/cardiomyopathy * atrial fibrillation with RVR * possible pneumonia (less likely) * other (?) * no evidence of respiratory distress * on home oxygen requirements * CT of chest without infiltrates or pneumonia; evidence of pulmonary edema noted * antibiotics dc'd * continue attempts at diuresis * follow respiratory status (4) Acute on chronic systolic heart failure: Code(s): I50.23 - Acute on chronic systolic (congestive) heart failure Status: Acute Assessment and Plan: * as suggested by imaging, labs, and exam * Echo (09/27/24) at [facility] [place] noted: * ejection fraction is visually estimated to be 10-15% * diastolic function E to E' ratio is >15 suggesting a high pulminary wedge pressure and LV diastolic dysfunction * no obvious thrombus noted * mildly dilated right and left atrium. * mild tricuspid regurgitation * estimated right ventricular systolic pressure is 33 mmHg * IVC is dilated * estimated RA pressure is 8 mmHg * normal cardiac catheterization noted (September 2024) * institution of GMDT was limited by hypotension during September 2024 hospitalization * Cardiology following * repeat Echo (12/05) reviewed: * four-chamber dilated cardiomyopathy * profound left and right ventricular systolic dysfunction ejection fraction 10-15% * mild MR resulting from annular dilation * mild aortic valve sclerosis * moderate to severe tricuspid valve regurgitation * moderate pulmonary hypertension, estimated pulmonary arterial systolic pressure is 57 mmHg * on dobutamine + IV diuretics along with IV albumin * better diuresis noted.... * however, not in negative fluid balance (5) Hypotension: Code(s): I95.9 - Hypotension, unspecified Status: Acute Assessment and Plan: * as noted since admission * probably related to severity of her cardiomyopathy (cardiogenic shock) * on levophed and dobutamine gtt * give lowish cortisol, stress dose steroids added * follow trend of hemodynamics (6) Atrial fibrillation with RVR: Code(s): I48.91 - Unspecified atrial fibrillation Status: Acute Assessment and Plan: * noted again but rate controlled * off amiodarone gtt at this time * on oral amiodarone * repeat Echo noted (see #4) * Cardiology following * on anticoagulation (heparin gtt) (7) Hyponatremia: Code(s): E87.1 - Hypo-osmolality and hyponatremia Status: Acute Assessment and Plan: * slow improvement * presumably related to chronic CHF along with SANDRA/CKD and hypervolemia * sodium was running around 133 - 137 during September [address] [facility] [place] [place] * evaluation noted: * TSH okay * cortisol on the lower end (but on steroids at this time) * urine electrolytes noted * SPEP/UPEP and serum/urine osmolality pending * follow trend of repeat sodiums (8) Lower extremity edema: Code(s): R60.0 - Localized edema Status: Acute Assessment and Plan: * localized to her lower extremities * likely a manifestation of chronic CHF and current SANDRA on CKD * lower extremity dopplers negative * diuresis as tolerated * consider DARRYL-wraps/compression stocking and LE elevation Will continue to follow. L Subjective Date/time seen: 12/08/24 10:15 Interval history: Follow- up for acute kidney injury/acute renal failure on chronic kidney disease. Renal function/creatinine slightly better by trend of labs and continues to make good urine output with current interventions (but not in negative fluid balance by I/Os); remains on levophed and dobutamine gtt but now back in Afib although remains rate controlled; breathing/respiratory status appear stable at the time of my visit. Exam 2 Narrative: General: WD/WN female in NAD Heart: normal S1 and S2; no rub Lungs: coarse with a few bibasilar crackles Abdomen: soft, nontender, nondistended, positive bowel sounds Extremities: no cyanosis or clubbing; 1 - 2+ edema Skin: no rash Objective Data Vital Signs Vital Signs: Vital Signs Temp Pulse Resp BP Pulse Ox O2 Del Method O2 Flow Rate 12/08/24 10:00 97.4 F L 94 23 H 103/58 L 96 12/08/24 09:37 89 118/59 L 12/08/24 08:00 93 109/65 12/08/24 08:00 97.4 F L 93 20 109/65 95 12/08/24 07:33 102 H 24 H 12/08/24 07:33 97 Nasal Cannula 2 12/08/24 06:10 95 100/61 12/08/24 06:09 87 100/61 12/08/24 06:06 97.3 F L 93 23 H 100/61 93 12/08/24 06:06 93 12/08/24 05:15 88 114/65 12/08/24 05:00 95 Nasal Cannula 2 12/08/24 04:00 89 12/08/24 04:00 88 114/65 12/08/24 04:00 97.5 F L 88 19 114/65 95 12/08/24 03:20 83 117/79 12/08/24 02:00 97.6 F 90 25 H 103/74 96 12/08/24 02:00 87 103/74 12/08/24 02:00 87 103/74 12/08/24 01:46 97.6 F 95 19 95 12/08/24 01:45 97.6 F 95 29 H 102/69 95 12/08/24 01:31 97.6 F 89 28 H 96 12/08/24 01:30 97.6 F 90 26 H 114/77 95 12/08/24 01:16 97.6 F 97 16 96 12/08/24 01:15 97.6 F 102 H 24 H 104/74 94 06/22/25 01:03 84 93/63 L 12/08/24 01:01 97.6 F 89 25 H 12/08/24 01:00 97.5 F L 92 26 H 93/63 L 12/08/24 00:46 97.6 F 85 21 H 12/08/24 00:45 97.6 F 90 21 H 95/59 L 12/08/24 00:31 97.6 F 91 23 H 12/08/24 00:30 97.6 F 99 26 H 104/65 12/08/24 00:27 97.6 F 93 21 H 103/63 12/08/24 00:18 84 93/63 L 12/08/24 00:16 97.7 F 99 22 H 12/08/24 00:15 97.7 F 95 19 103/63 12/08/24 00:02 97.7 F 93 22 H 97/64 L 97 12/08/24 00:01 97.7 F 96 28 H 77/51 L 97 12/08/24 00:00 97.8 F 89 20 97 12/08/24 00:00 97.7 F 93 27 H 97/64 L 96 12/08/24 00:00 97 12/08/24 00:00 98 Nasal Cannula 2 12/08/24 00:00 93 97/64 L 12/08/24 00:00 93 97/64 L 12/07/24 23:46 97.7 F 100 24 H 96 12/07/24 23:45 97.8 F 110 H 21 H 108/90 96 12/07/24 23:31 97.8 F 97 18 96 12/07/24 23:30 97.8 F 90 22 H 97/65 L 96 12/07/24 23:16 97.8 F 96 29 H 86/54 L 12/07/24 23:15 97.9 F 89 21 H 12/07/24 23:01 97.9 F 84 24 H 94 12/07/24 23:00 97.9 F 107 H 23 H 104/89 95 12/07/24 22:46 97.9 F 93 20 97 12/07/24 22:45 97.9 F 99 28 H 97/62 L 96 12/07/24 22:31 98.0 F 94 24 H 104/62 96 12/07/24 22:30 98.0 F 93 29 H 96 12/07/24 22:16 98.1 F 87 23 H 12/07/24 22:15 98.1 F 96 25 H 111/70 12/07/24 22:01 98.1 F 94 22 H 12/07/24 22:00 98.1 F 96 27 H 97/63 L 12/07/24 22:00 90 12/07/24 22:00 98.1 F 92 20 97/63 L 97 12/07/24 22:00 93 97/63 L 12/07/24 21:46 98.2 F 86 22 H 99 12/07/24 21:45 98.1 F 89 23 H 95/49 L 97 12/07/24 21:45 90 95/49 L 12/07/24 21:31 98.2 F 88 34 H 12/07/24 21:30 98.2 F 93 27 H 89/55 L 96 12/07/24 21:30 92 89/55 L 12/07/24 21:24 98.2 F 90 20 64/52 L 99 12/07/24 21:23 92 64/52 L 12/07/24 21:17 97.8 F 92 28 H 85/45 L 12/07/24 21:16 97.3 F L 93 24 H 97 12/07/24 21:15 98.0 F 110 H 26 H 83/61 L 96 12/07/24 21:01 98.1 F 84 26 H 97 12/07/24 21:00 98.1 F 96 22 H 98/69 L 97 12/07/24 20:53 98.1 F 94 23 H 101/60 96 12/07/24 20:47 98.1 F 97 20 62/33 L 96 12/07/24 20:45 98.2 F 88 22 H 97 12/07/24 20:33 98.1 F 88 23 H 91/54 L 98 12/07/24 20:31 98.1 F 106 H 16 100 12/07/24 20:30 98.0 F 88 25 H 102/37 L 98 12/07/24 20:04 100 Nasal Cannula 2 12/07/24 20:00 92 12/07/24 20:00 98 Nasal Cannula 2 12/07/24 20:00 95 98/65 L 12/07/24 20:00 95 98/65 L 12/07/24 20:00 97.8 F 95 26 H 98/65 L 98 12/07/24 18:00 88 24 H 99/66 L 96 12/07/24 18:00 91 12/07/24 18:00 87 95/55 L 12/07/24 17:26 96 87/38 L 12/07/24 16:00 100 Nasal Cannula 2 12/07/24 16:00 94 96/62 L 12/07/24 16:00 94 96/62 L 12/07/24 16:00 94 12/07/24 16:00 97.6 F 87 23 H 96/62 L 100 12/07/24 14:00 90 111/54 L 12/07/24 14:00 96 12/07/24 14:00 97.6 F 68 17 111/54 L 100 12/07/24 13:54 93 100/68 12/07/24 13:54 93 100/68 12/07/24 12:00 95 12/07/24 12:00 100 Nasal Cannula 2 12/07/24 12:00 68 93/56 L 12/07/24 12:00 86 122/90 12/07/24 11:53 97.3 F L 95 22 H 91/49 L 100 Intake/Output Intake/Output: Intake & Output 12/05/24 12/06/24 12/07/24 12/08/24 23:59 23:59 23:59 23:59 Intake Total 1584.9 3037.7 2418.5 837.2 Output Total 450 2075 2400 550 Balance 1134.9 962.7 18.5 287.2 Meds/Results Medications: Active Medications Generic Name Dose Route Start Last Admin Trade Name Freq PRN Reason Stop Dose Admin Acetaminophen 650 mg 12/04/24 22:10 Acetaminophen 325 Mg Tablet PO Q4H PRN Mild Pain (1-3) or Fever Hydrocodone Bitart/Acetaminophen 1 tab 12/05/24 01:36 12/07/24 21:28 Hydrocodone/Acetaminophen (*Crx) 5-325 Mg Tablet PO 1 tab Q8H PRN Administration pain 7-10 Albuterol/Ipratropium 3 ml 12/06/24 08:00 Ipratropium 0.5 Mg/Albuterol Sulfate 2.5 Mg Ampul.Neb 3 Ml INHALATION Q6HRT PRN wheezine Amiodarone HCl 400 mg 12/07/24 09:15 12/08/24 09:36 Amiodarone Hcl 200 Mg Tablet PO 400 mg DAILY@0800 KRISTEN Administration Atorvastatin Calcium 20 mg 12/05/24 09:00 12/08/24 09:36 Atorvastatin 20 Mg Tablet PO 20 mg DAILY KRISTEN Administration Furosemide 80 mg 12/06/24 09:00 12/08/24 09:35 Furosemide Inj 100 Mg/10 Ml Vial IV PUSH 80 mg BID KRISTEN Administration Heparin Sodium (Porcine) 5,500 units 12/08/24 05:57 Heparin Sodium 5,000 Units/Ml Vial IV PUSH PRN PRN aPTT less than 55 seconds Heparin Sodium (Porcine) 3,000 units 12/08/24 05:57 Heparin Sodium 5,000 Units/Ml Vial IV PUSH PRN PRN aPTT 55 - 70 seconds Hydrocortisone Sodium Succinate 100 mg 12/06/24 14:00 12/08/24 06:10 Hydrocortisone Sodium Succinate 100 Mg/2 Ml Vial IV PUSH 100 mg Q8HR KRISTEN Administration Norepinephrine Bitartrate 8 mg in 250 mls @ 26.25 mls/hr 12/05/24 09:25 12/08/24 10:00 Levophed 8 Mg/D5w 250 Ml IV CONT 14 mcg/min .Q9H32M KRISTEN 26.25 mls/hr Titration Protocol 14 MCG/MIN Heparin Sodium/Dextrose 25,000 units in 250 mls @ 10 mls/hr 12/06/24 08:15 12/08/24 05:57 Heparin Sodium/D5w 100 Units/Ml IV CONT 1,000 units/hr .Q24H KRISTEN 10 mls/hr Titration Protocol 1,000 UNITS/HR Dobutamine HCl/Dextrose 250 mg in 250 mls @ 15.15 mls/hr 12/06/24 07:55 12/08/24 06:09 Dobutamine 250 Mg/D5w 250 Ml IV CONT 2.5 mcg/kg/min .[id number] KRISTEN 13.32 mls/hr Administration 2.5 MCG/KG/MIN Albumin Human 100 mls @ 60 mls/hr 12/06/24 09:00 12/08/24 09:35 Albutein IVPB 60 mls/hr BID KRISTEN Administration Levothyroxine Sodium 50 mcg 12/08/24 08:15 12/08/24 09:36 Levothyroxine Sodium 50 Mcg Tablet PO 50 mcg DAILY@0630 KRISTEN Administration Potassium Chloride 40 meq 12/08/24 08:05 12/08/24 09:36 Potassium Chloride 20 Meq Er Tablet PO 12/08/24 14:06 40 meq Q6H KRISTEN Administration Fluticasone/Salmeterol 2 puff 12/05/24 08:00 12/08/24 07:33 Fluticasone/Salmeterol 115-21 Mcg Inhaler 1 Puff INHALATION 2 puff Q12HRT KRISTEN Administration Sodium Chloride 10 ml 12/05/24 14:00 12/08/24 06:11 Central Line Flush IV PUSH 10 ml Q8HR KRISTEN Administration Sodium Chloride 10 ml 12/05/24 11:12 Central Line Flush IV PUSH PRN PRN with TPN bag changes Sodium Chloride 20 ml 12/05/24 11:12 12/08/24 06:11 Central Line Flush IV PUSH 20 ml PRN PRN Administration after blood draws Radiology Results: ITS Impressions Chest X-Ray 12/05/24 11:31 IMPRESSION: No acute cardiopulmonary pathology. Renal Ultrasound 12/05/24 15:17 IMPRESSION: No hydronephrosis or renal calculi. Findings suggesting medical renal disease. Chest CT 12/05/24 15:24 IMPRESSION: Findings consistent with pulmonary edema with a small right-sided pleural effusion. Additional findings worrisome for pulmonary hypertension, as detailed above. Trace anasarca. Intra-abdominal ascites Venous Doppler Study 12/05/24 16:06 IMPRESSION: Negative bilateral lower extremity venous US. No deep vein thrombosis. Labs Labs: Laboratory Tests 12/08/24 05:31 12/08/24 05:31 Calcium 9.5 Phosphorus 3.2 Magnesium 1.8 Total Bilirubin 2.9 H AST 222 H ALT 188 H Alkaline Phosphatase 86 Total Protein 7.1 Albumin 4.1
--- NOTE | 2024-12-08 11:59 | P.PNIM_ITS ---
Progress Note: A&P Assessment and Plan (1) Shortness of breath: Code(s): R06.02 - Shortness of breath Status: Acute Assessment and Plan: Patient presented with shortness of breath without history of fever and dry cough Likely secondary to congestive heart failure and presented with AFib with RVR. She but she is only on 2 L nasal cannula which is her home oxygen She does not appear in any respiratory distress. Exam as above Chest x-ray showed air bronchograms in left superior hilum suggestive of early infiltrate. She has normal WBC and is afebrile. She was started on empiric antibiotics. But her procalcitonin level was low and CT scan did not show any infiltrates or findings suggestive of pneumonia. Antibiotics discontinued Continue Lasix and albumin See below (2) Acute exacerbation of CHF (congestive heart failure): Code(s): I50.9 - Heart failure, unspecified Status: Acute Assessment and Plan: Patient has history of congestive heart failure. Echo in 2020 showed EF 20-25% she had a recent echocardiogram which showed 10% EF. Echo on this hospitalization ordered and pending. She had a negative cardiac catheterization as per Cardiology records Cardiology following Echo Summary 1. Four-chamber dilated cardiomyopathy. 2. Profound left and right ventricular systolic dysfunction ejection fraction 10-15%. 3. Mild MR resulting from annular dilation. 4. At least moderate pulmonary hypertension based on tricuspid regurgitant velocity After discussion with Cardiology patient was started on dobutamine for post to inotropic effect to allow diuresis in light of kidney injury Continue dobutamine and Lasix and albumin (3) Non-ST elevation [place] (NSTEMI): Code(s): I21.4 - Non-ST elevation (NSTEMI) myocardial infarction Status: Acute Assessment and Plan: Mild elevation in troponin with no chest pain. EKG reviewed Patient presented with AFib with RVR As per Cardiology recurrence patient had a cardiac catheterization in recent past which was negative any coronary disease Patient has not been on anticoagulation as an outpatient due to history of frequent and significant nose bleeds. Patient was started on heparin drip at this time for AFib with RVR and closely monitor. Continue Continue statin Not on beta-saba Rian or ARB due to low blood pressure and elevated creatinine (4) Pneumonia: Code(s): J18.9 - Pneumonia, unspecified organism Status: Acute Assessment and Plan: See above (5) Hyperlipidemia: Code(s): E78.5 - Hyperlipidemia, unspecified Status: Acute Assessment and Plan: Continue atorvastatin (6) Elevated serum creatinine: Code(s): R79.89 - Other specified abnormal findings of blood chemistry Status: Acute Assessment and Plan: Last recorded creatinine was 1.5 in 2022 presented with creatinine of 2.66. Two weeks ago creatinine was 2.18 I suspect patient has chronic kidney disease and may have acute kidney injury Renal ultrasound showed medical renal disease CK minimally elevated Betts and accurate I&Os Nephrology evaluated the patient and following will defer further workup for renal failure to Nephrology Continue Lasix and albumin Monitor urine output electrolytes and creatinine (7) Lower extremity edema: Code(s): R60.0 - Localized edema Status: Acute Assessment and Plan: Likely secondary to congestive heart failure and kidney dysfunction Diuresis as above Lower extremity Dopplers negative for DVT (8) Atrial fibrillation with RVR: Code(s): I48.91 - Unspecified atrial fibrillation Status: Acute Assessment and Plan: Presented with AFib with RVR. Not on any antiplatelet or anticoagulation as an outpatient Patient was started on amiodarone infusion at the time of admission as patient blood pressure was low for rate control Echo ordered and reviewed Patient does not take aspirin due to history of allergy. 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 I spoke to patient and discussed risks and benefits. We has decided to start with trial of heparin infusion to see if patient tolerates without any complications. Amiodarone infusion was discontinued as patient has converted to sinus rhythm. Cardiology sees started p.o. amiodarone 12/08 patient went back into AFib but ventricular rate is controlled. Continue to monitor. Will stop dobutamine if the tachycardia worsens (9) Cardiogenic shock: Code(s): R57.0 - Cardiogenic shock Status: Acute Assessment and Plan: Continue Levophed and dobutamine for blood pressure support The patient's cortisol level was low hence started on hydrocortisone stress dose (10) Electrolyte abnormality: Code(s): E87.8 - Other disorders of electrolyte and fluid balance, not elsewhere classified Status: Acute Assessment and Plan: Replace low potassium (11) Hypothyroidism: Code(s): E03.9 - Hypothyroidism, unspecified Status: Acute Assessment and Plan: High TSH with low T3 Start levothyroxine at 50 mcg Plan DVT prophylaxis -heparin infusion Nutrition -diet ordered Code Status -patient wishes to be DNR DNI she does not want to go on a ventilator or receive CPR in the event of cardiac arrest. She states she does not have any family member in town. She is single and has been estranged from her children. Most of her relatives live in [place] Subjective Date/time seen: 12/08/24 11:59 Interval history: COmfortable at bedside On Dobutamine, Levophed Review of Systems Review of Systems: All systems reviewed & are unremarkable except as noted in HPI and below (HPI) Exam Narrative: General: Pt is alert awake and in NAD Lungs/Chest: Trachea central Clear BS B/L, few crackles at the bases right more than left. No respiratory distress, no use of accessory muscles, no significant wheezing Cardiac: Irregular rate and rhythm Normal S1 S2. No murmurs Circulation: Pedal pulses are intact and symmetrical. Abdomen: Normal bowel sounds.. Soft. NT. ND. Extremities: Bilateral pitting edema present :. Betts catheter in place Neurologic: Follows commands. Moves all 4 extremities PERRL AO x3 Skin: Intertrigo in the inguinal folds Objective Data Vital Signs Vital Signs: Vital Signs - 24 hr 12/07/24 12:00 12/07/24 12:00 12/07/24 12:00 Temperature Pulse Rate 86 68 Respiratory Rate Blood Pressure 122/90 93/56 L Pulse Oximetry 100 Oxygen Delivery Nasal Cannula Oxygen Flow Rate 2 Fraction of Inspired Oxygen 12/07/24 12:00 12/07/24 13:54 12/07/24 13:54 Temperature Pulse Rate 95 93 93 Respiratory Rate Blood Pressure 100/68 100/68 Pulse Oximetry Oxygen Delivery Oxygen Flow Rate Fraction of Inspired Oxygen 12/07/24 14:00 12/07/24 14:00 12/07/24 14:00 Temperature 97.6 F Pulse Rate 68 96 90 Respiratory Rate 17 Blood Pressure 111/54 L 111/54 L Pulse Oximetry 100 Oxygen Delivery Oxygen Flow Rate Fraction of Inspired Oxygen 12/07/24 16:00 12/07/24 16:00 12/07/24 16:00 Temperature 97.6 F Pulse Rate 87 94 94 Respiratory Rate 23 H Blood Pressure 96/62 L 96/62 L Pulse Oximetry 100 Oxygen Delivery Oxygen Flow Rate Fraction of Inspired Oxygen 12/07/24 16:00 12/07/24 16:00 12/07/24 17:26 Temperature Pulse Rate 94 96 Respiratory Rate Blood Pressure 96/62 L 87/38 L Pulse Oximetry 100 Oxygen Delivery Nasal Cannula Oxygen Flow Rate 2 Fraction of Inspired Oxygen 12/07/24 18:00 12/07/24 18:00 12/07/24 18:00 Temperature Pulse Rate 87 91 88 Respiratory Rate 24 H Blood Pressure 95/55 L 99/66 L Pulse Oximetry 96 Oxygen Delivery Oxygen Flow Rate Fraction of Inspired Oxygen 12/07/24 20:00 12/07/24 20:00 12/07/24 20:00 Temperature 97.8 F Pulse Rate 95 95 95 Respiratory Rate 26 H Blood Pressure 98/65 L 98/65 L 98/65 L Pulse Oximetry 98 Oxygen Delivery Oxygen Flow Rate Fraction of Inspired Oxygen 12/07/24 20:00 12/07/24 20:00 12/07/24 20:04 Temperature Pulse Rate 92 Respiratory Rate Blood Pressure Pulse Oximetry 98 100 Oxygen Delivery Nasal Cannula Nasal Cannula Oxygen Flow Rate 2 2 Fraction of Inspired Oxygen 12/07/24 20:30 12/07/24 20:31 12/07/24 20:33 Temperature 98.0 F 98.1 F 98.1 F Pulse Rate 88 106 H 88 Respiratory Rate 25 H 16 23 H Blood Pressure 102/37 L 91/54 L Pulse Oximetry 98 100 98 Oxygen Delivery Oxygen Flow Rate Fraction of Inspired Oxygen 12/07/24 20:45 12/07/24 20:47 12/07/24 20:53 Temperature 98.2 F 98.1 F 98.1 F Pulse Rate 88 97 94 Respiratory Rate 22 H 20 23 H Blood Pressure 62/33 L 101/60 Pulse Oximetry 97 96 96 Oxygen Delivery Oxygen Flow Rate Fraction of Inspired Oxygen 12/07/24 21:00 12/07/24 21:01 12/07/24 21:15 Temperature 98.1 F 98.1 F 98.0 F Pulse Rate 96 84 110 H Respiratory Rate 22 H 26 H 26 H Blood Pressure 98/69 L 83/61 L Pulse Oximetry 97 97 96 Oxygen Delivery Oxygen Flow Rate Fraction of Inspired Oxygen 12/07/24 21:16 12/07/24 21:17 12/07/24 21:23 Temperature 97.3 F L 97.8 F Pulse Rate 93 92 92 Respiratory Rate 24 H 28 H Blood Pressure 85/45 L 64/52 L Pulse Oximetry 97 Oxygen Delivery Oxygen Flow Rate Fraction of Inspired Oxygen 12/07/24 21:24 12/07/24 21:30 12/07/24 21:30 Temperature 98.2 F 98.2 F Pulse Rate 90 92 93 Respiratory Rate 20 27 H Blood Pressure 64/52 L 89/55 L 89/55 L Pulse Oximetry 99 96 Oxygen Delivery Oxygen Flow Rate Fraction of Inspired Oxygen 12/07/24 21:31 12/07/24 21:45 12/07/24 21:45 Temperature 98.2 F 98.1 F Pulse Rate 88 90 89 Respiratory Rate 34 H 23 H Blood Pressure 95/49 L 95/49 L Pulse Oximetry 97 Oxygen Delivery Oxygen Flow Rate Fraction of Inspired Oxygen 12/07/24 21:46 12/07/24 22:00 12/07/24 22:00 Temperature 98.2 F 98.1 F Pulse Rate 86 93 92 Respiratory Rate 22 H 20 Blood Pressure 97/63 L 97/63 L Pulse Oximetry 99 97 Oxygen Delivery Oxygen Flow Rate Fraction of Inspired Oxygen 12/07/24 22:00 12/07/24 22:00 12/07/24 22:01 Temperature 98.1 F 98.1 F Pulse Rate 90 96 94 Respiratory Rate 27 H 22 H Blood Pressure 97/63 L Pulse Oximetry Oxygen Delivery Oxygen Flow Rate Fraction of Inspired Oxygen 12/07/24 22:15 12/07/24 22:16 12/07/24 22:30 Temperature 98.1 F 98.1 F 98.0 F Pulse Rate 96 87 93 Respiratory Rate 25 H 23 H 29 H Blood Pressure 111/70 Pulse Oximetry 96 Oxygen Delivery Oxygen Flow Rate Fraction of Inspired Oxygen 12/07/24 22:31 12/07/24 22:45 12/07/24 22:46 Temperature 98.0 F 97.9 F 97.9 F Pulse Rate 94 99 93 Respiratory Rate 24 H 28 H 20 Blood Pressure 104/62 97/62 L Pulse Oximetry 96 96 97 Oxygen Delivery Oxygen Flow Rate Fraction of Inspired Oxygen 12/07/24 23:00 12/07/24 23:01 12/07/24 23:15 Temperature 97.9 F 97.9 F 97.9 F Pulse Rate 107 H 84 89 Respiratory Rate 23 H 24 H 21 H Blood Pressure 104/89 Pulse Oximetry 95 94 Oxygen Delivery Oxygen Flow Rate Fraction of Inspired Oxygen 12/07/24 23:16 12/07/24 23:30 12/07/24 23:31 Temperature 97.8 F 97.8 F 97.8 F Pulse Rate 96 90 97 Respiratory Rate 29 H 22 H 18 Blood Pressure 86/54 L 97/65 L Pulse Oximetry 96 96 Oxygen Delivery Oxygen Flow Rate Fraction of Inspired Oxygen 12/07/24 23:45 12/07/24 23:46 12/08/24 00:00 Temperature 97.8 F 97.7 F Pulse Rate 110 H 100 93 Respiratory Rate 21 H 24 H Blood Pressure 108/90 97/64 L Pulse Oximetry 96 96 Oxygen Delivery Oxygen Flow Rate Fraction of Inspired Oxygen 12/08/24 00:00 12/08/24 00:00 12/08/24 00:00 Temperature Pulse Rate 93 97 Respiratory Rate Blood Pressure 97/64 L Pulse Oximetry 98 Oxygen Delivery Nasal Cannula Oxygen Flow Rate 2 Fraction of Inspired Oxygen 12/08/24 00:00 12/08/24 00:00 12/08/24 00:01 Temperature 97.7 F 97.8 F 97.7 F Pulse Rate 93 89 96 Respiratory Rate 27 H 20 28 H Blood Pressure 97/64 L 77/51 L Pulse Oximetry 96 97 97 Oxygen Delivery Oxygen Flow Rate Fraction of Inspired Oxygen 12/08/24 00:02 12/08/24 00:15 12/08/24 00:16 Temperature 97.7 F 97.7 F 97.7 F Pulse Rate 93 95 99 Respiratory Rate 22 H 19 22 H Blood Pressure 97/64 L 103/63 Pulse Oximetry 97 Oxygen Delivery Oxygen Flow Rate Fraction of Inspired Oxygen 12/08/24 00:18 12/08/24 00:27 12/08/24 00:30 Temperature 97.6 F 97.6 F Pulse Rate 84 93 99 Respiratory Rate 21 H 26 H Blood Pressure 93/63 L 103/63 104/65 Pulse Oximetry Oxygen Delivery Oxygen Flow Rate Fraction of Inspired Oxygen 12/08/24 00:31 12/08/24 00:45 12/08/24 00:46 Temperature 97.6 F 97.6 F 97.6 F Pulse Rate 91 90 85 Respiratory Rate 23 H 21 H 21 H Blood Pressure 95/59 L Pulse Oximetry Oxygen Delivery Oxygen Flow Rate Fraction of Inspired Oxygen 12/08/24 01:00 12/08/24 01:01 12/08/24 01:03 Temperature 97.5 F L 97.6 F Pulse Rate 92 89 84 Respiratory Rate 26 H 25 H Blood Pressure 93/63 L 93/63 L Pulse Oximetry Oxygen Delivery Oxygen Flow Rate Fraction of Inspired Oxygen 12/08/24 01:15 12/08/24 01:16 12/08/24 01:30 Temperature 97.6 F 97.6 F 97.6 F Pulse Rate 102 H 97 90 Respiratory Rate 24 H 16 26 H Blood Pressure 104/74 114/77 Pulse Oximetry 94 96 95 Oxygen Delivery Oxygen Flow Rate Fraction of Inspired Oxygen 12/08/24 01:31 12/08/24 01:45 12/08/24 01:46 Temperature 97.6 F 97.6 F 97.6 F Pulse Rate 89 95 95 Respiratory Rate 28 H 29 H 19 Blood Pressure 102/69 Pulse Oximetry 96 95 95 Oxygen Delivery Oxygen Flow Rate Fraction of Inspired Oxygen 12/08/24 02:00 12/08/24 02:00 12/08/24 02:00 Temperature 97.6 F Pulse Rate 87 87 90 Respiratory Rate 25 H Blood Pressure 103/74 103/74 103/74 Pulse Oximetry 96 Oxygen Delivery Oxygen Flow Rate Fraction of Inspired Oxygen 12/08/24 03:20 12/08/24 04:00 12/08/24 04:00 Temperature 97.5 F L Pulse Rate 83 88 88 Respiratory Rate 19 Blood Pressure 117/79 114/65 114/65 Pulse Oximetry 95 Oxygen Delivery Oxygen Flow Rate Fraction of Inspired Oxygen 12/08/24 04:00 12/08/24 05:00 12/08/24 05:15 Temperature Pulse Rate 89 88 Respiratory Rate Blood Pressure 114/65 Pulse Oximetry 95 Oxygen Delivery Nasal Cannula Oxygen Flow Rate 2 Fraction of Inspired Oxygen 12/08/24 06:06 12/08/24 06:06 12/08/24 06:09 Temperature 97.3 F L Pulse Rate 93 93 87 Respiratory Rate 23 H Blood Pressure 100/61 100/61 Pulse Oximetry 93 Oxygen Delivery Oxygen Flow Rate Fraction of Inspired Oxygen 12/08/24 06:10 12/08/24 07:33 12/08/24 07:33 Temperature Pulse Rate 95 102 H Respiratory Rate 24 H Blood Pressure 100/61 Pulse Oximetry 97 Oxygen Delivery Nasal Cannula Oxygen Flow Rate 2 Fraction of Inspired Oxygen 12/08/24 08:00 12/08/24 08:00 12/08/24 08:00 Temperature 97.4 F L Pulse Rate 93 93 Respiratory Rate 20 Blood Pressure 109/65 109/65 Pulse Oximetry 95 96 Oxygen Delivery Nasal Cannula Oxygen Flow Rate 2 Fraction of Inspired Oxygen 12/08/24 09:37 12/08/24 09:37 12/08/24 10:00 Temperature Pulse Rate 89 89 92 Respiratory Rate Blood Pressure 118/59 L 118/59 L 103/58 L Pulse Oximetry Oxygen Delivery Oxygen Flow Rate Fraction of Inspired Oxygen 12/08/24 10:00 12/08/24 11:43 Temperature 97.4 F L Pulse Rate 94 95 Respiratory Rate 23 H Blood Pressure 103/58 L 108/95 H Pulse Oximetry 96 Oxygen Delivery Oxygen Flow Rate Fraction of Inspired Oxygen Intake/Output Intake/Output: Intake & Output 12/05/24 12/06/24 12/07/24 12/08/24 23:59 23:59 23:59 23:59 Intake Total 1584.9 3037.7 2418.5 882.3 Output Total 450 2075 2400 550 Balance 1134.9 962.7 18.5 332.3 Meds/Results Medications: Active Medications Generic Name Dose Route Start Last Admin Trade Name Freq PRN Reason Stop Dose Admin Acetaminophen 650 mg 12/04/24 22:10 Acetaminophen 325 Mg Tablet PO Q4H PRN Mild Pain (1-3) or Fever Hydrocodone Bitart/Acetaminophen 1 tab 12/05/24 01:36 12/07/24 21:28 Hydrocodone/Acetaminophen (*Crx) 5-325 Mg Tablet PO 1 tab Q8H PRN Administration pain 7-10 Albuterol/Ipratropium 3 ml 12/06/24 08:00 Ipratropium 0.5 Mg/Albuterol Sulfate 2.5 Mg Ampul.Neb 3 Ml INHALATION Q6HRT PRN wheezine Amiodarone HCl 400 mg 12/07/24 09:15 12/08/24 09:36 Amiodarone Hcl 200 Mg Tablet PO 400 mg DAILY@0800 KRISTEN Administration Atorvastatin Calcium 20 mg 12/05/24 09:00 12/08/24 09:36 Atorvastatin 20 Mg Tablet PO 20 mg DAILY KRISTEN Administration Furosemide 80 mg 12/06/24 09:00 12/08/24 09:35 Furosemide Inj 100 Mg/10 Ml Vial IV PUSH 80 mg BID KRISTEN Administration Heparin Sodium (Porcine) 5,500 units 12/08/24 05:57 Heparin Sodium 5,000 Units/Ml Vial IV PUSH PRN PRN aPTT less than 55 seconds Heparin Sodium (Porcine) 3,000 units 12/08/24 05:57 Heparin Sodium 5,000 Units/Ml Vial IV PUSH PRN PRN aPTT 55 - 70 seconds Hydrocortisone Sodium Succinate 100 mg 12/06/24 14:00 12/08/24 06:10 Hydrocortisone Sodium Succinate 100 Mg/2 Ml Vial IV PUSH 100 mg Q8HR KRISTEN Administration Norepinephrine Bitartrate 8 mg in 250 mls @ 24.375 mls/hr 12/05/24 09:25 12/08/24 11:43 Levophed 8 Mg/D5w 250 Ml IV CONT 13 mcg/min .[id number] KRISTEN 24.38 mls/hr Titration Protocol 13 MCG/MIN Heparin Sodium/Dextrose 25,000 units in 250 mls @ 10 mls/hr 12/06/24 08:15 12/08/24 05:57 Heparin Sodium/D5w 100 Units/Ml IV CONT 1,000 units/hr .Q24H KRISTEN 10 mls/hr Titration Protocol 1,000 UNITS/HR Dobutamine HCl/Dextrose 250 mg in 250 mls @ 15.15 mls/hr 12/06/24 07:55 12/08/24 06:09 Dobutamine 250 Mg/D5w 250 Ml IV CONT 2.5 mcg/kg/min .[id number] KRISTEN 13.32 mls/hr Administration 2.5 MCG/KG/MIN Albumin Human 100 mls @ 60 mls/hr 12/06/24 09:00 12/08/24 09:35 Albutein IVPB 60 mls/hr BID KRISTEN Administration Levothyroxine Sodium 50 mcg 12/08/24 08:15 12/08/24 09:36 Levothyroxine Sodium 50 Mcg Tablet PO 50 mcg DAILY@0630 KRISTEN Administration Potassium Chloride 40 meq 12/08/24 08:05 12/08/24 09:36 Potassium Chloride 20 Meq Er Tablet PO 12/08/24 14:06 40 meq Q6H KRISTEN Administration Fluticasone/Salmeterol 2 puff 12/05/24 08:00 12/08/24 07:33 Fluticasone/Salmeterol 115-21 Mcg Inhaler 1 Puff INHALATION 2 puff Q12HRT KRISTEN Administration Sodium Chloride 10 ml 12/05/24 14:00 12/08/24 06:11 Central Line Flush IV PUSH 10 ml Q8HR KRISTEN Administration Sodium Chloride 10 ml 12/05/24 11:12 Central Line Flush IV PUSH PRN PRN with TPN bag changes Sodium Chloride 20 ml 12/05/24 11:12 12/08/24 06:11 Central Line Flush IV PUSH 20 ml PRN PRN Administration after blood draws Radiology Results: ITS Impressions Chest X-Ray 12/05/24 11:31 IMPRESSION: No acute cardiopulmonary pathology. Renal Ultrasound 12/05/24 15:17 IMPRESSION: No hydronephrosis or renal calculi. Findings suggesting medical renal disease. Chest CT 12/05/24 15:24 IMPRESSION: Findings consistent with pulmonary edema with a small right-sided pleural effusion. Additional findings worrisome for pulmonary hypertension, as detailed above. Trace anasarca. Intra-abdominal ascites Venous Doppler Study 12/05/24 16:06 IMPRESSION: Negative bilateral lower extremity venous US. No deep vein thrombosis. Labs Labs: Laboratory Results - last 24 hr 12/07/24 12/07/24 12/08/24 13:53 21:31 05:31 WBC 11.4 H RBC 4.58 Hgb 13.1 Hct 40.7 MCV 88.9 MCH 28.6 MCHC 32.2 RDW 16.4 H Plt Count 129 L MPV 8.8 APTT 77.9 H 62.1 H 81.2 H Sodium 130 L Potassium 3.4 Chloride 92 L Carbon Dioxide 23 Anion Gap 15 H BUN 43 H Creatinine 2.20 H Estim Creat Clear Calc 28 Estimated GFR 23 L Glucose 143 H Calcium 9.5 Phosphorus 3.2 Magnesium 1.8 Total Bilirubin 2.9 H AST 222 H ALT 188 H Alkaline Phosphatase 86 Total Protein 7.1 Albumin 4.1 Quality VTE Prophylaxis VTE prophylaxis: pharmacologic ordered
[2024-12-08 12:10] LABS: Partial Thromboplastin Time > 200.0 Seconds (22.3-36.8)
--- NOTE | 2024-12-08 12:21 | PM.PNCARD ---
Progress Note: A&P Assessment and Plan (1) Acute exacerbation of CHF (congestive heart failure): Code(s): I50.9 - Heart failure, unspecified Status: Acute Plan Severe nonischemic dilated cardiomyopathy responding to I inotropic and pressor support. Case discussed with handicapped teacher. Would recommend cyst strain to wean off her a pressure support at this time and possibly the dobutamine tomorrow. Depending on her hemodynamics would consider trying to slowly titrated guideline directed medical therapy for her cardiomyopathy if possible. This may not be feasible based on her hemodynamics. The patient is very realistic and understands her poor prognosis and understands her desire not to be resuscitated in the event of an arrest. Renzo Foreman MD [facility] Subjective Date/time seen: Date of service: 12/08/24 12:21 Interval history: Reason for encounter: AFib with RVR, acute on chronic systolic heart failure Relevant history:54-year-old female with history of paroxysmal atrial fibrillation (paroxysmal AFib noticed on device interrogation was very brief and so she was taken off Eliquis by EP due to very low burden of AFib, also patient had significant nosebleeds), hyperlipidemia, hypertension, chronic systolic congestive heart failure, nonischemic cardiomyopathy (TTE in September 2024 showed LVEF of 10-15%, mild tricuspid regurgitation; TTE in September 2023 showed LVEF of 20-25%) status post AICD, history of VT, vitamin-D deficiency, osteoarthritis, chronic back pain, asthma on 2 L oxygen at home presented with chief complaints of worsening shortness of breath and lower extremity swelling. In the ER she was tachycardic with heart rate in the 120s and had soft blood pressures with SBP in the 90. EKG showed a flutter/tachycardia with rate in the 130s, ventricular paced complexes and fusion complex, left bundle branch block. Amiodarone bolus was administered and a drip started. She converted back to sinus rhythm with amiodarone. Cardiology was consulted for further recommendations. Workup: Sodium: 127 Creatinine: 2.6 Lactate: 4.5 Troponin: 0.100, 0.119 BNP: >30,000 EKG: A flutter/tachycardia with RVR, rate in the 130s, ventricular paced complexes and fusion complex present, left bundle branch Lower extremity venous Doppler: Negative for DVT Chest x-ray: Air bronchograms within the left superior hilum suspicious for an early infiltrate CT chest: Findings consistent with pulmonary edema with a small right-sided pleural effusion. Additional findings worrisome for pulmonary hypertension. Trace anasarca. Intra-abdominal ascites Cardiac catheterization in 2021: No CAD Interval history: Patient reports improvement in breathing P she continues to have significant swelling in her lower extremities. No chest pain, palpitations, dizziness. Telemetry shows sinus tachycardia. 12/07/2024: Patient is comfortable this morning reports significant improvement in her breathing since being started on dobutamine. Chart shows urinary output is improved with I inotropic support. 12/08/2024: She continues to feel well in general. She continues to receive dobutamine and pressure support as well. Urinary output is good. Exam Narrative: General: Alert oriented x3, no acute distress Neck: Supple, JVD + Chest: Bibasilar rales, no rhonchi Cardiac: S1, S2 +, regular rate, regular rhythm, no murmurs or rubs Extremities: Bilateral lower extremity edema 3+, no skin rash Neurologic: Alert and oriented x3, no focal neurological deficits Const: General: comfortable and no acute distress HENMT: Mouth: Yes moist mucous membranes Eyes: Sclera: sclerae normal Neck: Neck: supple and no JVD Resp: Effort & Inspection: normal respiratory effort Other: Scant basilar rales noted Cardio: Rate: regular rate Other: Atrially paced GI: Auscultation: normal bowel sounds Skin: General skin exam: normal color Neuro: Other: Alert and oriented x3 Extrem: Other: Obese, still has moderate soft pitting edema Objective Data Vital Signs Vital Signs: Vital Signs - 24 hr 12/07/24 13:54 12/07/24 13:54 12/07/24 14:00 Temperature 36.4 C Pulse Rate 93 93 68 Respiratory Rate 17 Blood Pressure 100/68 100/68 111/54 L Pulse Oximetry 100 Oxygen Delivery Oxygen Flow Rate Fraction of Inspired Oxygen 12/07/24 14:00 12/07/24 14:00 12/07/24 16:00 Temperature 36.4 C Pulse Rate 96 90 87 Respiratory Rate 23 H Blood Pressure 111/54 L 96/62 L Pulse Oximetry 100 Oxygen Delivery Oxygen Flow Rate Fraction of Inspired Oxygen 12/07/24 16:00 12/07/24 16:00 12/07/24 16:00 Temperature Pulse Rate 94 94 94 Respiratory Rate Blood Pressure 96/62 L 96/62 L Pulse Oximetry Oxygen Delivery Oxygen Flow Rate Fraction of Inspired Oxygen 12/07/24 16:00 12/07/24 17:26 12/07/24 18:00 Temperature Pulse Rate 96 87 Respiratory Rate Blood Pressure 87/38 L 95/55 L Pulse Oximetry 100 Oxygen Delivery Nasal Cannula Oxygen Flow Rate 2 Fraction of Inspired Oxygen 12/07/24 18:00 12/07/24 18:00 12/07/24 20:00 Temperature 36.6 C Pulse Rate 91 88 95 Respiratory Rate 24 H 26 H Blood Pressure 99/66 L 98/65 L Pulse Oximetry 96 98 Oxygen Delivery Oxygen Flow Rate Fraction of Inspired Oxygen 12/07/24 20:00 12/07/24 20:00 12/07/24 20:00 Temperature Pulse Rate 95 95 Respiratory Rate Blood Pressure 98/65 L 98/65 L Pulse Oximetry 98 Oxygen Delivery Nasal Cannula Oxygen Flow Rate 2 Fraction of Inspired Oxygen 12/07/24 20:00 12/07/24 20:04 12/07/24 20:30 Temperature 36.7 C Pulse Rate 92 88 Respiratory Rate 25 H Blood Pressure 102/37 L Pulse Oximetry 100 98 Oxygen Delivery Nasal Cannula Oxygen Flow Rate 2 Fraction of Inspired Oxygen 12/07/24 20:31 12/07/24 20:33 12/07/24 20:45 Temperature 36.7 C 36.7 C 36.8 C Pulse Rate 106 H 88 88 Respiratory Rate 16 23 H 22 H Blood Pressure 91/54 L Pulse Oximetry 100 98 97 Oxygen Delivery Oxygen Flow Rate Fraction of Inspired Oxygen 12/07/24 20:47 12/07/24 20:53 12/07/24 21:00 Temperature 36.7 C 36.7 C 36.7 C Pulse Rate 97 94 96 Respiratory Rate 20 23 H 22 H Blood Pressure 62/33 L 101/60 98/69 L Pulse Oximetry 96 96 97 Oxygen Delivery Oxygen Flow Rate Fraction of Inspired Oxygen 12/07/24 21:01 12/07/24 21:15 12/07/24 21:16 Temperature 36.7 C 36.7 C 36.3 C L Pulse Rate 84 110 H 93 Respiratory Rate 26 H 26 H 24 H Blood Pressure 83/61 L Pulse Oximetry 97 96 97 Oxygen Delivery Oxygen Flow Rate Fraction of Inspired Oxygen 12/07/24 21:17 12/07/24 21:23 12/07/24 21:24 Temperature 36.6 C 36.8 C Pulse Rate 92 92 90 Respiratory Rate 28 H 20 Blood Pressure 85/45 L 64/52 L 64/52 L Pulse Oximetry 99 Oxygen Delivery Oxygen Flow Rate Fraction of Inspired Oxygen 12/07/24 21:30 12/07/24 21:30 12/07/24 21:31 Temperature 36.8 C 36.8 C Pulse Rate 92 93 88 Respiratory Rate 27 H 34 H Blood Pressure 89/55 L 89/55 L Pulse Oximetry 96 Oxygen Delivery Oxygen Flow Rate Fraction of Inspired Oxygen 12/07/24 21:45 12/07/24 21:45 12/07/24 21:46 Temperature 36.7 C 36.8 C Pulse Rate 90 89 86 Respiratory Rate 23 H 22 H Blood Pressure 95/49 L 95/49 L Pulse Oximetry 97 99 Oxygen Delivery Oxygen Flow Rate Fraction of Inspired Oxygen 12/07/24 22:00 12/07/24 22:00 12/07/24 22:00 Temperature 36.7 C Pulse Rate 93 92 90 Respiratory Rate 20 Blood Pressure 97/63 L 97/63 L Pulse Oximetry 97 Oxygen Delivery Oxygen Flow Rate Fraction of Inspired Oxygen 12/07/24 22:00 12/07/24 22:01 12/07/24 22:15 Temperature 36.7 C 36.7 C 36.7 C Pulse Rate 96 94 96 Respiratory Rate 27 H 22 H 25 H Blood Pressure 97/63 L 111/70 Pulse Oximetry Oxygen Delivery Oxygen Flow Rate Fraction of Inspired Oxygen 12/07/24 22:16 12/07/24 22:30 12/07/24 22:31 Temperature 36.7 C 36.7 C 36.7 C Pulse Rate 87 93 94 Respiratory Rate 23 H 29 H 24 H Blood Pressure 104/62 Pulse Oximetry 96 96 Oxygen Delivery Oxygen Flow Rate Fraction of Inspired Oxygen 12/07/24 22:45 12/07/24 22:46 12/07/24 23:00 Temperature 36.6 C 36.6 C 36.6 C Pulse Rate 99 93 107 H Respiratory Rate 28 H 20 23 H Blood Pressure 97/62 L 104/89 Pulse Oximetry 96 97 95 Oxygen Delivery Oxygen Flow Rate Fraction of Inspired Oxygen 12/07/24 23:01 12/07/24 23:15 12/07/24 23:16 Temperature 36.6 C 36.6 C 36.6 C Pulse Rate 84 89 96 Respiratory Rate 24 H 21 H 29 H Blood Pressure 86/54 L Pulse Oximetry 94 Oxygen Delivery Oxygen Flow Rate Fraction of Inspired Oxygen 12/07/24 23:30 12/07/24 23:31 12/07/24 23:45 Temperature 36.6 C 36.6 C 36.6 C Pulse Rate 90 97 110 H Respiratory Rate 22 H 18 21 H Blood Pressure 97/65 L 108/90 Pulse Oximetry 96 96 96 Oxygen Delivery Oxygen Flow Rate Fraction of Inspired Oxygen 12/07/24 23:46 12/08/24 00:00 12/08/24 00:00 Temperature 36.5 C Pulse Rate 100 93 93 Respiratory Rate 24 H Blood Pressure 97/64 L 97/64 L Pulse Oximetry 96 Oxygen Delivery Oxygen Flow Rate Fraction of Inspired Oxygen 12/08/24 00:00 12/08/24 00:00 12/08/24 00:00 Temperature 36.5 C Pulse Rate 97 93 Respiratory Rate 27 H Blood Pressure 97/64 L Pulse Oximetry 98 96 Oxygen Delivery Nasal Cannula Oxygen Flow Rate 2 Fraction of Inspired Oxygen 12/08/24 00:00 12/08/24 00:01 12/08/24 00:02 Temperature 36.6 C 36.5 C 36.5 C Pulse Rate 89 96 93 Respiratory Rate 20 28 H 22 H Blood Pressure 77/51 L 97/64 L Pulse Oximetry 97 97 97 Oxygen Delivery Oxygen Flow Rate Fraction of Inspired Oxygen 12/08/24 00:15 12/08/24 00:16 12/08/24 00:18 Temperature 36.5 C 36.5 C Pulse Rate 95 99 84 Respiratory Rate 19 22 H Blood Pressure 103/63 93/63 L Pulse Oximetry Oxygen Delivery Oxygen Flow Rate Fraction of Inspired Oxygen 12/08/24 00:27 12/08/24 00:30 12/08/24 00:31 Temperature 36.4 C 36.4 C 36.4 C Pulse Rate 93 99 91 Respiratory Rate 21 H 26 H 23 H Blood Pressure 103/63 104/65 Pulse Oximetry Oxygen Delivery Oxygen Flow Rate Fraction of Inspired Oxygen 12/08/24 00:45 12/08/24 00:46 12/08/24 01:00 Temperature 36.4 C 36.4 C 36.4 C L Pulse Rate 90 85 92 Respiratory Rate 21 H 21 H 26 H Blood Pressure 95/59 L 93/63 L Pulse Oximetry Oxygen Delivery Oxygen Flow Rate Fraction of Inspired Oxygen 12/08/24 01:01 12/08/24 01:03 12/08/24 01:15 Temperature 36.4 C 36.4 C Pulse Rate 89 84 102 H Respiratory Rate 25 H 24 H Blood Pressure 93/63 L 104/74 Pulse Oximetry 94 Oxygen Delivery Oxygen Flow Rate Fraction of Inspired Oxygen 12/08/24 01:16 12/08/24 01:30 12/08/24 01:31 Temperature 36.4 C 36.4 C 36.4 C Pulse Rate 97 90 89 Respiratory Rate 16 26 H 28 H Blood Pressure 114/77 Pulse Oximetry 96 95 96 Oxygen Delivery Oxygen Flow Rate Fraction of Inspired Oxygen 12/08/24 01:45 12/08/24 01:46 12/08/24 02:00 Temperature 36.4 C 36.4 C Pulse Rate 95 95 87 Respiratory Rate 29 H 19 Blood Pressure 102/69 103/74 Pulse Oximetry 95 95 Oxygen Delivery Oxygen Flow Rate Fraction of Inspired Oxygen 12/08/24 02:00 12/08/24 02:00 12/08/24 03:20 Temperature 36.4 C Pulse Rate 87 90 83 Respiratory Rate 25 H Blood Pressure 103/74 103/74 117/79 Pulse Oximetry 96 Oxygen Delivery Oxygen Flow Rate Fraction of Inspired Oxygen 12/08/24 04:00 12/08/24 04:00 12/08/24 04:00 Temperature 36.4 C L Pulse Rate 88 88 89 Respiratory Rate 19 Blood Pressure 114/65 114/65 Pulse Oximetry 95 Oxygen Delivery Oxygen Flow Rate Fraction of Inspired Oxygen 12/08/24 05:00 12/08/24 05:15 12/08/24 06:06 Temperature Pulse Rate 88 93 Respiratory Rate Blood Pressure 114/65 Pulse Oximetry 95 Oxygen Delivery Nasal Cannula Oxygen Flow Rate 2 Fraction of Inspired Oxygen 12/08/24 06:06 12/08/24 06:09 12/08/24 06:10 Temperature 36.3 C L Pulse Rate 93 87 95 Respiratory Rate 23 H Blood Pressure 100/61 100/61 100/61 Pulse Oximetry 93 Oxygen Delivery Oxygen Flow Rate Fraction of Inspired Oxygen 12/08/24 07:33 12/08/24 07:33 12/08/24 08:00 Temperature 36.3 C L Pulse Rate 102 H 93 Respiratory Rate 24 H 20 Blood Pressure 109/65 Pulse Oximetry 97 95 Oxygen Delivery Nasal Cannula Oxygen Flow Rate 2 Fraction of Inspired Oxygen 12/08/24 08:00 12/08/24 08:00 12/08/24 08:00 Temperature Pulse Rate 93 91 Respiratory Rate Blood Pressure 109/65 Pulse Oximetry 96 Oxygen Delivery Nasal Cannula Oxygen Flow Rate 2 Fraction of Inspired Oxygen 12/08/24 09:37 12/08/24 09:37 12/08/24 10:00 Temperature Pulse Rate 89 89 92 Respiratory Rate Blood Pressure 118/59 L 118/59 L 103/58 L Pulse Oximetry Oxygen Delivery Oxygen Flow Rate Fraction of Inspired Oxygen 12/08/24 10:00 12/08/24 10:00 12/08/24 11:43 Temperature 36.3 C L Pulse Rate 94 93 95 Respiratory Rate 23 H Blood Pressure 103/58 L 108/95 H Pulse Oximetry 96 Oxygen Delivery Oxygen Flow Rate Fraction of Inspired Oxygen Intake/Output Intake/Output: Intake & Output 12/05/24 12/06/24 12/07/24 12/08/24 23:59 23:59 23:59 23:59 Intake Total 1584.9 3037.7 2418.5 882.3 Output Total 450 2075 2400 550 Balance 1134.9 962.7 18.5 332.3 Meds/Results Medications: Active Medications Generic Name Dose Route Start Last Admin Trade Name Freq PRN Reason Stop Dose Admin Acetaminophen 650 mg 12/04/24 22:10 Acetaminophen 325 Mg Tablet PO Q4H PRN Mild Pain (1-3) or Fever Hydrocodone Bitart/Acetaminophen 1 tab 12/05/24 01:36 12/07/24 21:28 Hydrocodone/Acetaminophen (*Crx) 5-325 Mg Tablet PO 1 tab Q8H PRN Administration pain 7-10 Albuterol/Ipratropium 3 ml 12/06/24 08:00 Ipratropium 0.5 Mg/Albuterol Sulfate 2.5 Mg Ampul.Neb 3 Ml INHALATION Q6HRT PRN wheezine Amiodarone HCl 400 mg 12/07/24 09:15 12/08/24 09:36 Amiodarone Hcl 200 Mg Tablet PO 400 mg DAILY@0800 KRISTEN Administration Atorvastatin Calcium 20 mg 12/05/24 09:00 12/08/24 09:36 Atorvastatin 20 Mg Tablet PO 20 mg DAILY KRISTEN Administration Furosemide 80 mg 12/06/24 09:00 12/08/24 09:35 Furosemide Inj 100 Mg/10 Ml Vial IV PUSH 80 mg BID KRISTEN Administration Heparin Sodium (Porcine) 5,500 units 12/08/24 05:57 Heparin Sodium 5,000 Units/Ml Vial IV PUSH PRN PRN aPTT less than 55 seconds Heparin Sodium (Porcine) 3,000 units 12/08/24 05:57 Heparin Sodium 5,000 Units/Ml Vial IV PUSH PRN PRN aPTT 55 - 70 seconds Hydrocortisone Sodium Succinate 100 mg 12/06/24 14:00 12/08/24 06:10 Hydrocortisone Sodium Succinate 100 Mg/2 Ml Vial IV PUSH 100 mg Q8HR KRISTEN Administration Norepinephrine Bitartrate 8 mg in 250 mls @ 24.375 mls/hr 12/05/24 09:25 12/08/24 11:43 Levophed 8 Mg/D5w 250 Ml IV CONT 13 mcg/min .[id number] KRISTEN 24.38 mls/hr Titration Protocol 13 MCG/MIN Heparin Sodium/Dextrose 25,000 units in 250 mls @ 10 mls/hr 12/06/24 08:15 12/08/24 05:57 Heparin Sodium/D5w 100 Units/Ml IV CONT 1,000 units/hr .Q24H KRISTEN 10 mls/hr Titration Protocol 1,000 UNITS/HR Dobutamine HCl/Dextrose 250 mg in 250 mls @ 15.15 mls/hr 12/06/24 07:55 12/08/24 06:09 Dobutamine 250 Mg/D5w 250 Ml IV CONT 2.5 mcg/kg/min .[id number] KRISTEN 13.32 mls/hr Administration 2.5 MCG/KG/MIN Albumin Human 100 mls @ 60 mls/hr 12/06/24 09:00 12/08/24 09:35 Albutein IVPB 60 mls/hr BID KRISTEN Administration Levothyroxine Sodium 50 mcg 12/08/24 08:15 12/08/24 09:36 Levothyroxine Sodium 50 Mcg Tablet PO 50 mcg DAILY@0630 KRISTEN Administration Potassium Chloride 40 meq 12/08/24 08:05 12/08/24 09:36 Potassium Chloride 20 Meq Er Tablet PO 12/08/24 14:06 40 meq Q6H KRISTEN Administration Fluticasone/Salmeterol 2 puff 12/05/24 08:00 12/08/24 07:33 Fluticasone/Salmeterol 115-21 Mcg Inhaler 1 Puff INHALATION 2 puff Q12HRT KRISTEN Administration Sodium Chloride 10 ml 12/05/24 14:00 12/08/24 06:11 Central Line Flush IV PUSH 10 ml Q8HR KRISTEN Administration Sodium Chloride 10 ml 12/05/24 11:12 Central Line Flush IV PUSH PRN PRN with TPN bag changes Sodium Chloride 20 ml 12/05/24 11:12 12/08/24 06:11 Central Line Flush IV PUSH 20 ml PRN PRN Administration after blood draws Radiology Results: ITS Impressions Chest X-Ray 12/05/24 11:31 IMPRESSION: No acute cardiopulmonary pathology. Renal Ultrasound 12/05/24 15:17 IMPRESSION: No hydronephrosis or renal calculi. Findings suggesting medical renal disease. Chest CT 12/05/24 15:24 IMPRESSION: Findings consistent with pulmonary edema with a small right-sided pleural effusion. Additional findings worrisome for pulmonary hypertension, as detailed above. Trace anasarca. Intra-abdominal ascites Venous Doppler Study 12/05/24 16:06 IMPRESSION: Negative bilateral lower extremity venous US. No deep vein thrombosis. Labs Labs: Laboratory Results - last 24 hr 12/07/24 12/07/24 12/08/24 13:53 21:31 05:31 WBC 11.4 H RBC 4.58 Hgb 13.1 Hct 40.7 MCV 88.9 MCH 28.6 MCHC 32.2 RDW 16.4 H Plt Count 129 L MPV 8.8 APTT 77.9 H 62.1 H 81.2 H Sodium 130 L Potassium 3.4 Chloride 92 L Carbon Dioxide 23 Anion Gap 15 H BUN 43 H Creatinine 2.20 H Estim Creat Clear Calc 28 Estimated GFR 23 L Glucose 143 H Calcium 9.5 Phosphorus 3.2 Magnesium 1.8 Total Bilirubin 2.9 H AST 222 H ALT 188 H Alkaline Phosphatase 86 Total Protein 7.1 Albumin 4.1 12/08/24 11:37 WBC RBC Hgb Hct MCV MCH MCHC RDW Plt Count MPV APTT > 200.0 H* Sodium Potassium Chloride Carbon Dioxide Anion Gap BUN Creatinine Estim Creat Clear Calc Estimated GFR Glucose Calcium Phosphorus Magnesium Total Bilirubin AST ALT Alkaline Phosphatase Total Protein Albumin
[2024-12-08 12:41] LABS: Partial Thromboplastin Time 72.6 Seconds (22.3-36.8)
--- NOTE | 2024-12-08 14:57 | PC.NURSE ---
12/08/2024 1137 PTT >200 was drawn from the PICC line that was infusing heparin, even though it was drawn from the opposite lumen. Heparin was switched to a peripheral IV and another PTT was drawn that was therapeutic. Dr. Foote notified
[2024-12-08] MEDS: HEPARIN SOD/D5W 100 UNITS/ML 25,000 UNITS/250 ML BAG 10 UNITS IV CONT (16:18)
[2024-12-08] MEDS: HYDROcodone/acetaminophen (*CRX) 5-325 MG TABLET 1 TAB PO (22:13)
[2024-12-09] VITALS (31 sets, daily range): BP systolic 83–118; BP diastolic 49–93; PULSE 77–94; RESP 13–29; TEMP 35.8–36.6; O2SAT 92–100
[2024-12-09] MEDS: LEVOTHYROXINE SODIUM 50 MCG TABLET PO (05:41)
[2024-12-09] MEDS: HYDROCORTISONE SODIUM SUCCINATE 100 MG/2 ML VIAL IV PUSH ×3 (05:41→21:46)
[2024-12-09] MEDS: CENTRAL LINE FLUSH 10 ML IV PUSH ×3 (05:42→21:46)
[2024-12-09 07:05] LABS: Hematocrit 34.6 % (37.0-47.0); Immature Platelet Fraction Pct 1.6 % (0.9-11.2); Mean Corpuscular HGB Conc 31.8 g/dl (32-36); Mean Corpuscular Hemoglobin 28.7 pg (26-34); Mean Corpuscular Volume 90.3 fl (80-100); Mean Platelet Volume 8.5 fl (7.4-10.4); Platelet Count Result 92 k/mm3 (150-375); Red Blood Count 3.83 M/mm3 (4.2-5.4); Red Cell Distribution Width 16.7 % (11.5-14.5); White Blood Count 7.2 K/mm3 (4.5-10.0)
[2024-12-09 07:22] LABS: Alanine Aminotransferase 131 U/L (6-35); Albumin Level 3.9 g/dL (3.5-5.1); Alkaline Phosphatase 70 U/L (38-126); Anion Gap 9 mmol/L (4-12); Aspartate Amino Transferase 113 U/L (14-36); Bilirubin,Total 3.6 mg/dL (0.2-1.3); Blood Urea Nitrogen 43 mg/dL (7-17); Calcium 9.1 mg/dL (8.4-10.2); Carbon Dioxide 24 mmol/L (22-30); Chloride 91 mmol/L (98-107); Estimated CRCL calculation 32 ml/min; Estimated Glomerular Filt Rate 26; Glucose 179 mg/dL (65-110); Magnesium 2.1 mg/dL (1.6-2.3); Phosphorus 3.3 mg/dL (2.5-4.5); Potassium 3.5 mmol/L (3.4-5.0); Sodium 124 mmol/L (137-145); Total Protein 6.5 g/dL (6.3-8.2)
[2024-12-09] MEDS: FLUTICASONE/SALMETEROL 115-21 MCG INHALER 1 PUFF 2 PUFF INHALATION ×2 (08:07→20:08)
[2024-12-09] MEDS: AMIODARONE HCL 200 MG TABLET 400 MG PO (08:13)
[2024-12-09] MEDS: ATORVASTATIN 20 MG TABLET PO (08:14)
[2024-12-09] MEDS: ALBUMIN HUMAN 25% 25 GM/100 ML 100 ML IVPB ×2 (09:15→16:51)
[2024-12-09] MEDS: FUROSEMIDE INJ 100 MG/10 ML VIAL 80 MG IV PUSH ×2 (09:15→16:51)
--- NOTE | 2024-12-09 09:15 | WPDINTPN ---
Progress Note: A&P Assessment and Plan (1) Shortness of breath: Code(s): R06.02 - Shortness of breath Status: Acute Assessment and Plan: Patient presented with shortness of breath without history of fever and dry cough Likely secondary to congestive heart failure and presented with AFib with RVR. She but she is only on 2 L nasal cannula which is her home oxygen She does not appear in any respiratory distress. Exam as above Chest x-ray showed air bronchograms in left superior hilum suggestive of early infiltrate. She has normal WBC and is afebrile. She was started on empiric antibiotics. But her procalcitonin level was low and CT scan did not show any infiltrates or findings suggestive of pneumonia. Antibiotics discontinued Continue Lasix and albumin See below (2) Acute exacerbation of CHF (congestive heart failure): Code(s): I50.9 - Heart failure, unspecified Status: Acute Assessment and Plan: Patient has history of congestive heart failure. Echo in 2020 showed EF 20-25% she had a recent echocardiogram which showed 10% EF. Echo on this hospitalization ordered and pending. She had a negative cardiac catheterization as per Cardiology records Cardiology following Echo Summary 1. Four-chamber dilated cardiomyopathy. 2. Profound left and right ventricular systolic dysfunction ejection fraction 10-15%. 3. Mild MR resulting from annular dilation. 4. At least moderate pulmonary hypertension based on tricuspid regurgitant velocity After discussion with Cardiology patient was started on dobutamine for post to inotropic effect to allow diuresis in light of kidney injury Continue dobutamine and Lasix and albumin (3) Non-ST elevation CO (NSTEMI): Code(s): I21.4 - Non-ST elevation (NSTEMI) myocardial infarction Status: Acute Assessment and Plan: Mild elevation in troponin with no chest pain. EKG reviewed Patient presented with AFib with RVR As per Cardiology recurrence patient had a cardiac catheterization in recent past which was negative any coronary disease Patient has not been on anticoagulation as an outpatient due to history of frequent and significant nose bleeds. Patient was started on heparin drip at this time for AFib with RVR and closely monitor. Continue Continue statin Not on beta-saba Rian or ARB due to low blood pressure and elevated creatinine (4) Pneumonia: Code(s): J18.9 - Pneumonia, unspecified organism Status: Acute Assessment and Plan: See above (5) Hyperlipidemia: Code(s): E78.5 - Hyperlipidemia, unspecified Status: Acute Assessment and Plan: Continue atorvastatin (6) Elevated serum creatinine: Code(s): R79.89 - Other specified abnormal findings of blood chemistry Status: Acute Assessment and Plan: Last recorded creatinine was 1.5 in 2022 presented with creatinine of 2.66. Two weeks ago creatinine was 2.18 I suspect patient has chronic kidney disease and may have acute kidney injury Renal ultrasound showed medical renal disease CK minimally elevated Betts and accurate I&Os Nephrology evaluated the patient and following will defer further workup for renal failure to Nephrology Continue Lasix and albumin Creatinine has improved to 1.9 7 Monitor urine output electrolytes and creatinine (7) Lower extremity edema: Code(s): R60.0 - Localized edema Status: Acute Assessment and Plan: Likely secondary to congestive heart failure and kidney dysfunction Diuresis as above Lower extremity Dopplers negative for DVT (8) Atrial fibrillation with RVR: Code(s): I48.91 - Unspecified atrial fibrillation Status: Acute Assessment and Plan: Presented with AFib with RVR. Not on any antiplatelet or anticoagulation as an outpatient Patient was started on amiodarone infusion at the time of admission as patient blood pressure was low for rate control Echo ordered and reviewed Patient does not take aspirin due to history of allergy. Patient states that she used to be on Eliquis in the past but it was discontinued due to frequent severe nosebleed Discussed with vehicle detailer and she recommends starting anticoagulation. I spoke to patient and discussed risks and benefits. We has decided to start with trial of heparin infusion to see if patient tolerates without any complications. Amiodarone infusion was discontinued as patient has converted to sinus rhythm. Cardiology sees started p.o. amiodarone Patient continues to be in sinus rhythm with PACs. Monitor (9) Cardiogenic shock: Code(s): R57.0 - Cardiogenic shock Status: Acute Assessment and Plan: Continue dobutamine for b ionotropic support. Levophed weaned off The patient's cortisol level was low hence started on hydrocortisone stress dose (10) Electrolyte abnormality: Code(s): E87.8 - Other disorders of electrolyte and fluid balance, not elsewhere classified Status: Acute Assessment and Plan: Replace low potassium (11) Hypothyroidism: Code(s): E03.9 - Hypothyroidism, unspecified Status: Acute Assessment and Plan: High TSH with low T3 Start levothyroxine at 50 mcg Plan DVT prophylaxis -heparin infusion Nutrition -diet ordered Code Status -patient wishes to be DNR DNI she does not want to go on a ventilator or receive CPR in the event of cardiac arrest. She states she does not have any family member in town. She is single and has been estranged from her children. Most of her relatives live in [place] Total Critical Care Time - 30 minutes Due to a high probability of clinically significant, life threatening deterioration, the patient required my highest level of preparedness to intervene emergently and I personally spent this critical care time directly and personally managing the patient. This critical care time included obtaining a history; examining the patient; pulse oximetry; ordering and review of studies; arranging urgent treatment with development of a management plan; evaluation of patient's response to treatment; frequent reassessment; and discussions with other providers. It was exclusive of separately billable procedures and treating other patients and teaching time. Please see Assessment and Plan section and the rest of the note for further information on patient assessment and treatment Subjective Date/time seen: 12/09/24 Overnight events reviewed. Afebrile. On 2 L nasal cannula She is in sinus rhythm with PACs Continues to be on dobutamine but Levophed has been weaned off Acceptable urine output in response to Lasix She denies any new complaints and states he feels fine otherwise. Review of systems positive for being weak tired and swelling in the legs. All the systems were reviewed and were negative. Tolerating p.o. diet Review of Systems Review of Systems: All systems reviewed & are unremarkable except as noted in HPI and below (HPI) Exam Narrative: General: Pt is alert awake and in NAD Lungs/Chest: Trachea central Clear BS B/L, few crackles at the bases right more than left. No respiratory distress, no use of accessory muscles, no significant wheezing Cardiac: Irregular rate and rhythm Normal S1 S2. No murmurs Circulation: Pedal pulses are intact and symmetrical. Abdomen: Normal bowel sounds.. Soft. NT. ND. Extremities: Bilateral pitting edema present :. Betts catheter in place Neurologic: Follows commands. Moves all 4 extremities PERRL AO x3 Skin: Intertrigo in the inguinal folds Objective Data Vital Signs Vital Signs: Vital Signs - 24 hr 12/08/24 09:37 12/08/24 09:37 12/08/24 10:00 Temperature Pulse Rate 89 89 92 Respiratory Rate Blood Pressure 118/59 L 118/59 L 103/58 L Pulse Oximetry Oxygen Delivery Oxygen Flow Rate Fraction of Inspired Oxygen 12/08/24 10:00 12/08/24 10:00 12/08/24 11:43 Temperature 36.3 C L Pulse Rate 94 93 95 Respiratory Rate 23 H Blood Pressure 103/58 L 108/95 H Pulse Oximetry 96 Oxygen Delivery Oxygen Flow Rate Fraction of Inspired Oxygen 12/08/24 12:00 12/08/24 12:00 12/08/24 12:00 Temperature 36.4 C L Pulse Rate 99 95 96 Respiratory Rate 22 H Blood Pressure 101/57 L 101/57 L Pulse Oximetry 96 Oxygen Delivery Oxygen Flow Rate Fraction of Inspired Oxygen 12/08/24 12:00 12/08/24 14:00 12/08/24 14:00 Temperature 36.3 C L Pulse Rate 96 95 Respiratory Rate 23 H Blood Pressure 95/58 L Pulse Oximetry 96 94 Oxygen Delivery Nasal Cannula Oxygen Flow Rate 2 Fraction of Inspired Oxygen 12/08/24 14:00 12/08/24 16:00 12/08/24 16:00 Temperature Pulse Rate 93 88 Respiratory Rate Blood Pressure 95/58 L Pulse Oximetry 96 Oxygen Delivery Nasal Cannula Oxygen Flow Rate 2 Fraction of Inspired Oxygen 12/08/24 16:00 12/08/24 16:00 12/08/24 18:00 Temperature 36.2 C L Pulse Rate 95 95 95 Respiratory Rate 22 H Blood Pressure 90/50 L 90/50 L 76/65 L Pulse Oximetry 93 Oxygen Delivery Oxygen Flow Rate Fraction of Inspired Oxygen 12/08/24 18:00 12/08/24 18:00 12/08/24 18:13 Temperature Pulse Rate 96 95 97 Respiratory Rate 26 H Blood Pressure 76/65 L 72/60 L Pulse Oximetry 94 Oxygen Delivery Oxygen Flow Rate Fraction of Inspired Oxygen 12/08/24 18:19 12/08/24 19:20 12/08/24 19:20 Temperature Pulse Rate 92 99 99 Respiratory Rate Blood Pressure 97/48 L 92/54 L 92/54 L Pulse Oximetry Oxygen Delivery Oxygen Flow Rate Fraction of Inspired Oxygen 12/08/24 20:00 12/08/24 20:00 12/08/24 20:00 Temperature Pulse Rate 91 91 Respiratory Rate Blood Pressure 101/59 L 101/59 L Pulse Oximetry 94 Oxygen Delivery Nasal Cannula Oxygen Flow Rate 2 Fraction of Inspired Oxygen 12/08/24 20:00 12/08/24 20:00 12/08/24 20:09 Temperature 36.4 C Pulse Rate 97 91 Respiratory Rate 24 H Blood Pressure 101/59 L Pulse Oximetry 94 95 Oxygen Delivery Nasal Cannula Oxygen Flow Rate 2 Fraction of Inspired Oxygen 28 12/08/24 21:29 12/08/24 21:29 12/08/24 22:00 Temperature Pulse Rate 102 H 102 H 90 Respiratory Rate Blood Pressure 103/62 103/62 Pulse Oximetry Oxygen Delivery Oxygen Flow Rate Fraction of Inspired Oxygen 12/08/24 22:00 12/08/24 22:00 12/08/24 22:00 Temperature 36.4 C L Pulse Rate 90 90 90 Respiratory Rate 24 H Blood Pressure 83/63 L 83/63 L 83/63 L Pulse Oximetry 94 Oxygen Delivery Oxygen Flow Rate Fraction of Inspired Oxygen 12/08/24 23:57 12/08/24 23:58 12/09/24 00:00 Temperature Pulse Rate 89 89 Respiratory Rate Blood Pressure 108/81 108/81 Pulse Oximetry 97 Oxygen Delivery Nasal Cannula Oxygen Flow Rate 2 Fraction of Inspired Oxygen 12/09/24 00:00 12/09/24 00:00 12/09/24 00:22 Temperature 36.2 C L Pulse Rate 89 94 86 Respiratory Rate 18 Blood Pressure 106/56 L 107/93 H Pulse Oximetry 97 Oxygen Delivery Oxygen Flow Rate Fraction of Inspired Oxygen 12/09/24 00:35 12/09/24 01:04 12/09/24 01:16 Temperature Pulse Rate 83 80 88 Respiratory Rate Blood Pressure 108/60 103/74 109/66 Pulse Oximetry Oxygen Delivery Oxygen Flow Rate Fraction of Inspired Oxygen 12/09/24 01:31 12/09/24 02:00 12/09/24 02:00 Temperature 36.0 C L Pulse Rate 90 83 89 Respiratory Rate 15 Blood Pressure 107/71 97/78 L Pulse Oximetry 97 Oxygen Delivery Oxygen Flow Rate Fraction of Inspired Oxygen 12/09/24 02:00 12/09/24 02:00 12/09/24 02:18 Temperature Pulse Rate 89 89 81 Respiratory Rate Blood Pressure 97/78 L 97/78 L 111/62 Pulse Oximetry Oxygen Delivery Oxygen Flow Rate Fraction of Inspired Oxygen 12/09/24 02:48 12/09/24 03:05 12/09/24 04:00 Temperature Pulse Rate 83 79 Respiratory Rate Blood Pressure 107/58 L 104/70 Pulse Oximetry 95 Oxygen Delivery Nasal Cannula Oxygen Flow Rate 2 Fraction of Inspired Oxygen 12/09/24 04:00 12/09/24 04:00 12/09/24 04:00 Temperature 35.9 C L Pulse Rate 79 80 80 Respiratory Rate 16 Blood Pressure 97/64 L 97/64 L Pulse Oximetry 95 Oxygen Delivery Oxygen Flow Rate Fraction of Inspired Oxygen 12/09/24 04:00 12/09/24 04:31 12/09/24 04:52 Temperature Pulse Rate 80 85 78 Respiratory Rate Blood Pressure 97/64 L 116/72 108/70 Pulse Oximetry Oxygen Delivery Oxygen Flow Rate Fraction of Inspired Oxygen 12/09/24 05:07 12/09/24 06:00 12/09/24 06:00 Temperature Pulse Rate 82 77 81 Respiratory Rate 20 Blood Pressure 114/76 118/73 Pulse Oximetry 98 Oxygen Delivery Oxygen Flow Rate Fraction of Inspired Oxygen 12/09/24 06:00 12/09/24 06:00 12/09/24 08:00 Temperature Pulse Rate 81 81 88 Respiratory Rate 20 Blood Pressure 118/73 118/73 Pulse Oximetry 100 Oxygen Delivery Nasal Cannula Oxygen Flow Rate 2 Fraction of Inspired Oxygen 12/09/24 08:00 12/09/24 08:00 12/09/24 08:13 Temperature 35.8 C L Pulse Rate 88 88 80 Respiratory Rate 20 Blood Pressure 83/56 L Pulse Oximetry 100 Oxygen Delivery Oxygen Flow Rate Fraction of Inspired Oxygen Intake/Output Intake/Output: Intake & Output 12/06/24 12/07/24 12/08/24 12/09/24 23:59 23:59 23:59 23:59 Intake Total 3037.7 2418.5 2279.6 746.8 Output Total 2075 2400 1400 475 Balance 962.7 18.5 879.6 271.8 Meds/Results Medications: Active Medications Generic Name Dose Route Start Last Admin Trade Name Freq PRN Reason Stop Dose Admin Acetaminophen 650 mg 12/04/24 22:10 Acetaminophen 325 Mg Tablet PO Q4H PRN Mild Pain (1-3) or Fever Hydrocodone Bitart/Acetaminophen 1 tab 12/05/24 01:36 12/08/24 22:13 Hydrocodone/Acetaminophen (*Crx) 5-325 Mg Tablet PO 1 tab Q8H PRN Administration pain 7-10 Albuterol/Ipratropium 3 ml 12/06/24 08:00 Ipratropium 0.5 Mg/Albuterol Sulfate 2.5 Mg Ampul.Neb 3 Ml INHALATION Q6HRT PRN wheezine Amiodarone HCl 400 mg 12/07/24 09:15 12/09/24 08:13 Amiodarone Hcl 200 Mg Tablet PO 400 mg DAILY@0800 KRISTEN Administration Atorvastatin Calcium 20 mg 12/05/24 09:00 12/09/24 08:14 Atorvastatin 20 Mg Tablet PO 20 mg DAILY KRISTEN Administration Furosemide 80 mg 12/06/24 09:00 12/08/24 18:13 Furosemide Inj 100 Mg/10 Ml Vial IV PUSH 80 mg BID KRISTEN Administration Heparin Sodium (Porcine) 5,500 units 12/08/24 05:57 Heparin Sodium 5,000 Units/Ml Vial IV PUSH PRN PRN aPTT less than 55 seconds Heparin Sodium (Porcine) 3,000 units 12/08/24 05:57 Heparin Sodium 5,000 Units/Ml Vial IV PUSH PRN PRN aPTT 55 - 70 seconds Hydrocortisone Sodium Succinate 100 mg 12/06/24 14:00 12/09/24 05:41 Hydrocortisone Sodium Succinate 100 Mg/2 Ml Vial IV PUSH 100 mg Q8HR KRISTEN Administration Norepinephrine Bitartrate 8 mg in 250 mls @ 0 mls/hr 12/05/24 09:25 12/09/24 06:04 Levophed 8 Mg/D5w 250 Ml IV CONT Not Given .Q0M KRISTEN Protocol 0 MCG/MIN Heparin Sodium/Dextrose 25,000 units in 250 mls @ 9 mls/hr 12/06/24 08:15 12/09/24 07:30 Heparin Sodium/D5w 100 Units/Ml IV CONT 900 units/hr .Q24H KRISTEN 9 mls/hr Titration Protocol Dobutamine HCl/Dextrose 250 mg in 250 mls @ 15.15 mls/hr 12/06/24 07:55 12/09/24 06:00 Dobutamine 250 Mg/D5w 250 Ml IV CONT 2.5 mcg/kg/min .[id number] KRISTEN 15.15 mls/hr Infusion 2.5 MCG/KG/MIN Albumin Human 100 mls @ 60 mls/hr 12/06/24 09:00 12/08/24 19:00 Albutein IVPB Infused BID KRISTEN Infusion Levothyroxine Sodium 50 mcg 12/08/24 08:15 12/09/24 05:41 Levothyroxine Sodium 50 Mcg Tablet PO 50 mcg DAILY@0630 KRISTEN Administration Fluticasone/Salmeterol 2 puff 12/05/24 08:00 12/09/24 08:07 Fluticasone/Salmeterol 115-21 Mcg Inhaler 1 Puff INHALATION 2 puff Q12HRT KRISTEN Administration Sodium Chloride 10 ml 12/05/24 14:00 12/09/24 05:42 Central Line Flush IV PUSH 10 ml Q8HR KRISTEN Administration Sodium Chloride 10 ml 12/05/24 11:12 Central Line Flush IV PUSH PRN PRN with TPN bag changes Sodium Chloride 20 ml 12/05/24 11:12 12/08/24 06:11 Central Line Flush IV PUSH 20 ml PRN PRN Administration after blood draws Radiology Results: ITS Impressions Chest X-Ray 12/05/24 11:31 IMPRESSION: No acute cardiopulmonary pathology. Renal Ultrasound 12/05/24 15:17 IMPRESSION: No hydronephrosis or renal calculi. Findings suggesting medical renal disease. Chest CT 12/05/24 15:24 IMPRESSION: Findings consistent with pulmonary edema with a small right-sided pleural effusion. Additional findings worrisome for pulmonary hypertension, as detailed above. Trace anasarca. Intra-abdominal ascites Venous Doppler Study 12/05/24 16:06 IMPRESSION: Negative bilateral lower extremity venous US. No deep vein thrombosis. Labs Labs: Laboratory Results - last 24 hr 12/08/24 12/08/24 12/09/24 11:37 12:23 06:58 WBC 7.2 RBC 3.83 L Hgb 11.0 L Hct 34.6 L MCV 90.3 MCH 28.7 MCHC 31.8 L RDW 16.7 H Plt Count 92 L MPV 8.5 % Immature Plt Fraction 1.6 APTT > 200.0 H* 72.6 H 109.0 H Sodium 124 L Potassium 3.5 Chloride 91 L Carbon Dioxide 24 Anion Gap 9 BUN 43 H Creatinine 1.97 H Estim Creat Clear Calc 32 Estimated GFR 26 L Glucose 179 H Calcium 9.1 Phosphorus 3.3 Magnesium 2.1 Total Bilirubin 3.6 H AST 113 H ALT 131 H Alkaline Phosphatase 70 Total Protein 6.5 Albumin 3.9 Quality VTE Prophylaxis VTE prophylaxis: pharmacologic ordered
--- NOTE | 2024-12-09 10:40 | P.PNCA_ITS ---
Progress Note: A&P Assessment and Plan (1) Acute on chronic systolic heart failure: Code(s): I50.23 - Acute on chronic systolic (congestive) heart failure Status: Acute (2) Elevated troponin: Code(s): R77.8 - Other specified abnormalities of plasma proteins Status: Acute (3) Atrial fibrillation with RVR: Code(s): I48.91 - Unspecified atrial fibrillation Status: Acute (4) Hyperlipidemia: Code(s): E78.5 - Hyperlipidemia, unspecified Status: Acute (5) Acute kidney injury: Code(s): N17.9 - Acute kidney failure, unspecified Status: Acute (6) Stage 3b chronic kidney disease: Code(s): N18.32 - Chronic kidney disease, stage 3b Status: Acute (7) Asthma with exacerbation: Qualifiers: Asthma persistence: unspecified Asthma severity: unspecified severity Qualified Code(s): J45.901 - Unspecified asthma with (acute) exacerbation Code(s): J45.901 - Unspecified asthma with (acute) exacerbation Status: Resolved (8) Pneumonia: Code(s): J18.9 - Pneumonia, unspecified organism Status: Acute Plan 54-year-old female with history of paroxysmal atrial fibrillation (paroxysmal AFib noticed on device interrogation was very brief and so she was taken off Eliquis by EP due to very low burden of AFib, also patient had significant nosebleeds), hyperlipidemia, hypertension, chronic systolic congestive heart failure (TTE in September 2024 showed LVEF of 10-15%, mild tricuspid regurgitation; TTE in September 2023 showed LVEF of 20-25%) status post AICD, history of VT, vitamin-D deficiency, osteoarthritis, chronic back pain, asthma on 2 L oxygen at home with -Acute on chronic systolic heart failure with LVEF 10-15% by echo in September 2024 -Nonischemic cardiomyopathy; cardiac catheterization in 2021 showed no CAD -AFib with RVR-converted to sinus rhythm with amiodarone; not on anticoagulation due to low burden of AFib and history of nose bleeds -Elevated troponin (0.100, 0.119) without chest pain-most likely demand ischemia secondary to acute on chronic heart failure and a flutter with RVR -Hypertension but now hypotensive at presentation with SBP in the 90s and the blood pressure continues to remain soft with SBP in the 80s-100s -Asthma exacerbation -SANDRA on CKD Plan: -Continue inotrope assisted diuresis with dobutamine drip and lasix. Consider lasix drip instead of BID dosing for uniform dose over 24 hours -Monitor daily weight, ins and outs, renal function -Check and replace electrolytes to keep potassium greater than 4 and magnesium greater than 2 -She has been on heparin drip for anticoagulation without any bleeding issues. I discussed the option of restarting Eliquis since she is not having any bleeding issues and patient is willing to try. Stop heparin and start Eliquis 5mg BID -Continue amiodarone PO 400 mg daily for now and switch to 200mg PO daily at discharge -Poor overall prognosis Subjective Date/time seen: 12/09/24 10:40 Interval history: Reason for encounter: AFib with RVR, acute on chronic systolic heart failure Relevant history:54-year-old female with history of paroxysmal atrial fibrillation (paroxysmal AFib noticed on device interrogation was very brief and so she was taken off Eliquis by EP due to very low burden of AFib, also patient had significant nosebleeds), hyperlipidemia, hypertension, chronic systolic congestive heart failure, nonischemic cardiomyopathy (TTE in September 2024 showed LVEF of 10-15%, mild tricuspid regurgitation; TTE in September 2023 showed LVEF of 20-25%) status post AICD, history of VT, vitamin-D deficiency, osteoarthritis, chronic back pain, asthma on 2 L oxygen at home presented with chief complaints of worsening shortness of breath and lower extremity swelling. In the ER she was tachycardic with heart rate in the 120s and had soft blood pressures with SBP in the 90. EKG showed a flutter/tachycardia with rate in the 130s, ventricular paced complexes and fusion complex, left bundle branch block. Amiodarone bolus was administered and a drip started. She converted back to sinus rhythm with amiodarone. Cardiology was consulted for further recommendations. Workup: Sodium: 127 Creatinine: 2.6 Lactate: 4.5 Troponin: 0.100, 0.119 BNP: >30,000 EKG: A flutter/tachycardia with RVR, rate in the 130s, ventricular paced complexes and fusion complex present, left bundle branch Lower extremity venous Doppler: Negative for DVT Chest x-ray: Air bronchograms within the left superior hilum suspicious for an early infiltrate CT chest: Findings consistent with pulmonary edema with a small right-sided pleural effusion. Additional findings worrisome for pulmonary hypertension. Tr florencia anasarca. Intra-abdominal ascites Cardiac catheterization in 2021: No CAD Interval history: Patient reports improvement in breathing P she continues to have significant swelling in her lower extremities. No chest pain, palpitations, dizziness. Telemetry shows sinus tachycardia. 12/07/2024: Patient is comfortable this morning reports significant improvement in her breathing since being started on dobutamine. Chart shows urinary output is improved with I inotropic support. 12/08/2024: She continues to feel well in general. She continues to receive dobutamine and pressure support as well. Urinary output is good. Review of Systems Cardiovascular: Comments: As mentioned in HPI Respiratory: Comments: As mentioned in the HPI Exam Narrative: General: Alert oriented x3, no acute distress Neck: Supple, JVD + Chest: Bibasilar rales, no rhonchi Cardiac: S1, S2 +, regular rate, regular rhythm, no murmurs or rubs Extremities: Bilateral lower extremity edema 2+, no skin rash Neurologic: Alert and oriented x3, no focal neurological deficits Objective Data Vital Signs Vital Signs: Vital Signs - 24 hr 12/08/24 11:43 12/08/24 12:00 12/08/24 12:00 Temperature 36.4 C L Pulse Rate 95 99 95 Respiratory Rate 22 H Blood Pressure 108/95 H 101/57 L 101/57 L Pulse Oximetry 96 Oxygen Delivery Oxygen Flow Rate Fraction of Inspired Oxygen 12/08/24 12:00 12/08/24 12:00 12/08/24 14:00 Temperature 36.3 C L Pulse Rate 96 96 Respiratory Rate 23 H Blood Pressure 95/58 L Pulse Oximetry 96 94 Oxygen Delivery Nasal Cannula Oxygen Flow Rate 2 Fraction of Inspired Oxygen 12/08/24 14:00 12/08/24 14:00 12/08/24 16:00 Temperature Pulse Rate 95 93 88 Respiratory Rate Blood Pressure 95/58 L Pulse Oximetry Oxygen Delivery Oxygen Flow Rate Fraction of Inspired Oxygen 12/08/24 16:00 12/08/24 16:00 12/08/24 16:00 Temperature 36.2 C L Pulse Rate 95 95 Respiratory Rate 22 H Blood Pressure 90/50 L 90/50 L Pulse Oximetry 96 93 Oxygen Delivery Nasal Cannula Oxygen Flow Rate 2 Fraction of Inspired Oxygen 12/08/24 18:00 12/08/24 18:00 12/08/24 18:00 Temperature Pulse Rate 95 96 95 Respiratory Rate 26 H Blood Pressure 76/65 L 76/65 L Pulse Oximetry 94 Oxygen Delivery Oxygen Flow Rate Fraction of Inspired Oxygen 12/08/24 18:13 12/08/24 18:19 12/08/24 19:20 Temperature Pulse Rate 97 92 99 Respiratory Rate Blood Pressure 72/60 L 97/48 L 92/54 L Pulse Oximetry Oxygen Delivery Oxygen Flow Rate Fraction of Inspired Oxygen 12/08/24 19:20 12/08/24 20:00 12/08/24 20:00 Temperature Pulse Rate 99 91 91 Respiratory Rate Blood Pressure 92/54 L 101/59 L 101/59 L Pulse Oximetry Oxygen Delivery Oxygen Flow Rate Fraction of Inspired Oxygen 12/08/24 20:00 12/08/24 20:00 12/08/24 20:00 Temperature 36.4 C Pulse Rate 97 91 Respiratory Rate 24 H Blood Pressure 101/59 L Pulse Oximetry 94 94 Oxygen Delivery Nasal Cannula Oxygen Flow Rate 2 Fraction of Inspired Oxygen 12/08/24 20:09 12/08/24 21:29 12/08/24 21:29 Temperature Pulse Rate 102 H 102 H Respiratory Rate Blood Pressure 103/62 103/62 Pulse Oximetry 95 Oxygen Delivery Nasal Cannula Oxygen Flow Rate 2 Fraction of Inspired Oxygen 12/08/24 22:00 12/08/24 22:00 12/08/24 22:00 Temperature 36.4 C L Pulse Rate 90 90 90 Respiratory Rate 24 H Blood Pressure 83/63 L 83/63 L Pulse Oximetry 94 Oxygen Delivery Oxygen Flow Rate Fraction of Inspired Oxygen 12/08/24 22:00 12/08/24 23:57 12/08/24 23:58 Temperature Pulse Rate 90 89 89 Respiratory Rate Blood Pressure 83/63 L 108/81 108/81 Pulse Oximetry Oxygen Delivery Oxygen Flow Rate Fraction of Inspired Oxygen 12/09/24 00:00 12/09/24 00:00 12/09/24 00:00 Temperature 36.2 C L Pulse Rate 89 94 Respiratory Rate 18 Blood Pressure 106/56 L Pulse Oximetry 97 97 Oxygen Delivery Nasal Cannula Oxygen Flow Rate 2 Fraction of Inspired Oxygen 12/09/24 00:22 12/09/24 00:35 12/09/24 01:04 Temperature Pulse Rate 86 83 80 Respiratory Rate Blood Pressure 107/93 H 108/60 103/74 Pulse Oximetry Oxygen Delivery Oxygen Flow Rate Fraction of Inspired Oxygen 12/09/24 01:16 12/09/24 01:31 12/09/24 02:00 Temperature Pulse Rate 88 90 83 Respiratory Rate Blood Pressure 109/66 107/71 Pulse Oximetry Oxygen Delivery Oxygen Flow Rate Fraction of Inspired Oxygen 12/09/24 02:00 12/09/24 02:00 12/09/24 02:00 Temperature 36.0 C L Pulse Rate 89 89 89 Respiratory Rate 15 Blood Pressure 97/78 L 97/78 L 97/78 L Pulse Oximetry 97 Oxygen Delivery Oxygen Flow Rate Fraction of Inspired Oxygen 12/09/24 02:18 12/09/24 02:48 12/09/24 03:05 Temperature Pulse Rate 81 83 79 Respiratory Rate Blood Pressure 111/62 107/58 L 104/70 Pulse Oximetry Oxygen Delivery Oxygen Flow Rate Fraction of Inspired Oxygen 12/09/24 04:00 12/09/24 04:00 12/09/24 04:00 Temperature 35.9 C L Pulse Rate 79 80 Respiratory Rate 16 Blood Pressure 97/64 L Pulse Oximetry 95 95 Oxygen Delivery Nasal Cannula Oxygen Flow Rate 2 Fraction of Inspired Oxygen 12/09/24 04:00 12/09/24 04:00 12/09/24 04:31 Temperature Pulse Rate 80 80 85 Respiratory Rate Blood Pressure 97/64 L 97/64 L 116/72 Pulse Oximetry Oxygen Delivery Oxygen Flow Rate Fraction of Inspired Oxygen 12/09/24 04:52 12/09/24 05:07 12/09/24 06:00 Temperature Pulse Rate 78 82 77 Respiratory Rate Blood Pressure 108/70 114/76 Pulse Oximetry Oxygen Delivery Oxygen Flow Rate Fraction of Inspired Oxygen 12/09/24 06:00 12/09/24 06:00 12/09/24 06:00 Temperature Pulse Rate 81 81 81 Respiratory Rate 20 Blood Pressure 118/73 118/73 118/73 Pulse Oximetry 98 Oxygen Delivery Oxygen Flow Rate Fraction of Inspired Oxygen 12/09/24 08:00 12/09/24 08:00 12/09/24 08:00 Temperature 35.8 C L Pulse Rate 88 88 88 Respiratory Rate 20 20 Blood Pressure 83/56 L Pulse Oximetry 100 100 Oxygen Delivery Nasal Cannula Oxygen Flow Rate 2 Fraction of Inspired Oxygen 12/09/24 08:13 Temperature Pulse Rate 80 Respiratory Rate Blood Pressure Pulse Oximetry Oxygen Delivery Oxygen Flow Rate Fraction of Inspired Oxygen Intake/Output Intake/Output: Intake & Output 12/06/24 12/07/24 12/08/24 12/09/24 23:59 23:59 23:59 23:59 Intake Total 3037.7 2418.5 2279.6 1106.8 Output Total 2075 2400 1400 475 Balance 962.7 18.5 879.6 631.8 Meds/Results Medications: Active Medications Generic Name Dose Route Start Last Admin Trade Name Freq PRN Reason Stop Dose Admin Acetaminophen 650 mg 12/04/24 22:10 Acetaminophen 325 Mg Tablet PO Q4H PRN Mild Pain (1-3) or Fever Hydrocodone Bitart/Acetaminophen 1 tab 12/05/24 01:36 12/08/24 22:13 Hydrocodone/Acetaminophen (*Crx) 5-325 Mg Tablet PO 1 tab Q8H PRN Administration pain 7-10 Albuterol/Ipratropium 3 ml 12/06/24 08:00 Ipratropium 0.5 Mg/Albuterol Sulfate 2.5 Mg Ampul.Neb 3 Ml INHALATION Q6HRT PRN wheezine Amiodarone HCl 400 mg 12/07/24 09:15 12/09/24 08:13 Amiodarone Hcl 200 Mg Tablet PO 400 mg DAILY@0800 KRISTEN Administration Atorvastatin Calcium 20 mg 12/05/24 09:00 12/09/24 08:14 Atorvastatin 20 Mg Tablet PO 20 mg DAILY KRISTEN Administration Furosemide 80 mg 12/06/24 09:00 12/09/24 09:15 Furosemide Inj 100 Mg/10 Ml Vial IV PUSH 80 mg BID KRISTEN Administration Heparin Sodium (Porcine) 5,500 units 12/08/24 05:57 Heparin Sodium 5,000 Units/Ml Vial IV PUSH PRN PRN aPTT less than 55 seconds Heparin Sodium (Porcine) 3,000 units 12/08/24 05:57 Heparin Sodium 5,000 Units/Ml Vial IV PUSH PRN PRN aPTT 55 - 70 seconds Hydrocortisone Sodium Succinate 100 mg 12/06/24 14:00 12/09/24 05:41 Hydrocortisone Sodium Succinate 100 Mg/2 Ml Vial IV PUSH 100 mg Q8HR KRISTEN Administration Norepinephrine Bitartrate 8 mg in 250 mls @ 0 mls/hr 12/05/24 09:25 12/09/24 06:04 Levophed 8 Mg/D5w 250 Ml IV CONT Not Given .Q0M KRISTEN Protocol 0 MCG/MIN Heparin Sodium/Dextrose 25,000 units in 250 mls @ 9 mls/hr 12/06/24 08:15 12/09/24 07:30 Heparin Sodium/D5w 100 Units/Ml IV CONT 900 units/hr .Q24H KRISTEN 9 mls/hr Titration Protocol Dobutamine HCl/Dextrose 250 mg in 250 mls @ 15.15 mls/hr 12/06/24 07:55 12/09/24 06:00 Dobutamine 250 Mg/D5w 250 Ml IV CONT 2.5 mcg/kg/min .[id number] KRISTEN 15.15 mls/hr Infusion 2.5 MCG/KG/MIN Albumin Human 100 mls @ 60 mls/hr 12/06/24 09:00 12/09/24 09:15 Albutein IVPB 60 mls/hr BID KRISTEN Administration Levothyroxine Sodium 50 mcg 12/08/24 08:15 12/09/24 05:41 Levothyroxine Sodium 50 Mcg Tablet PO 50 mcg DAILY@0630 KRISTEN Administration Potassium Chloride 40 meq 12/09/24 09:15 Potassium Chloride 20 Meq Er Tablet PO 12/09/24 15:16 Q6H KRISTEN Fluticasone/Salmeterol 2 puff 12/05/24 08:00 12/09/24 08:07 Fluticasone/Salmeterol 115-21 Mcg Inhaler 1 Puff INHALATION 2 puff Q12HRT KRISTEN Administration Sodium Chloride 10 ml 12/05/24 14:00 12/09/24 05:42 Central Line Flush IV PUSH 10 ml Q8HR KRISTEN Administration Sodium Chloride 10 ml 12/05/24 11:12 Central Line Flush IV PUSH PRN PRN with TPN bag changes Sodium Chloride 20 ml 12/05/24 11:12 12/08/24 06:11 Central Line Flush IV PUSH 20 ml PRN PRN Administration after blood draws Radiology Results: ITS Impressions Chest X-Ray 12/05/24 11:31 IMPRESSION: No acute cardiopulmonary pathology. Renal Ultrasound 12/05/24 15:17 IMPRESSION: No hydronephrosis or renal calculi. Findings suggesting medical renal disease. Chest CT 12/05/24 15:24 IMPRESSION: Findings consistent with pulmonary edema with a small right-sided pleural effusion. Additional findings worrisome for pulmonary hypertension, as detailed above. Trace anasarca. Intra-abdominal ascites Venous Doppler Study 12/05/24 16:06 IMPRESSION: Negative bilateral lower extremity venous US. No deep vein thrombosis. Labs Labs: Laboratory Results - last 24 hr 12/08/24 12/08/24 12/09/24 11:37 12:23 06:58 WBC 7.2 RBC 3.83 L Hgb 11.0 L Hct 34.6 L MCV 90.3 MCH 28.7 MCHC 31.8 L RDW 16.7 H Plt Count 92 L MPV 8.5 % Immature Plt Fraction 1.6 APTT > 200.0 H* 72.6 H 109.0 H Sodium 124 L Potassium 3.5 Chloride 91 L Carbon Dioxide 24 Anion Gap 9 BUN 43 H Creatinine 1.97 H Estim Creat Clear Calc 32 Estimated GFR 26 L Glucose 179 H Calcium 9.1 Phosphorus 3.3 Magnesium 2.1 Total Bilirubin 3.6 H AST 113 H ALT 131 H Alkaline Phosphatase 70 Total Protein 6.5 Albumin 3.9
[2024-12-09 10:51] LABS: NT Pro B Type Natriuretic Pept 28600 pg/mL (19.9-100)
--- NOTE | 2024-12-09 11:33 | PM.PNNEP ---
Progress Note: A&P Assessment and Plan (1) Acute kidney injury: Code(s): N17.9 - Acute kidney failure, unspecified Status: Acute Assessment and Plan: slow improvement noted as noted on admission - creatinine 2.66mg/dl suspect multifactorial: hemodynamic instability/hypotension decompensated heart failure use of ARB and diuretics prior to admission Afib with RVR infection -- less likely other (?) evaluation to date noted: renal ultrasound with medical renal disease urine electrolytes prerenal (indicative of depressed EF given volume overloaded state) urine eosinophils negative CPK mildly elevated (but not enough to affect kidney function) moderate proteinuria (~ 900mg) suspect due to cardiorenal syndrome worsened by hemodynamic instability/severe hypotension follow repeat labs and UOP (2) Stage 3b chronic kidney disease: Code(s): N18.32 - Chronic kidney disease, stage 3b Status: Acute Assessment and Plan: creatinine running around 1.60 - 1.75mg/dl during September 2024 hospitalization at [facility] earlier this month creatinine was noted to be 2.18mg/dl creatinine in September 2023 was running 1.2 - 1.3mg/dl suspect underlying CKD due cardiorenal syndrome given depressed EF/cardiomyopathy (3) Shortness of breath: Code(s): R06.02 - Shortness of breath Status: Acute Assessment and Plan: due to several issues: volume overload acute on chronic CHF/cardiomyopathy atrial fibrillation with RVR possible pneumonia (less likely) other (?) no evidence of respiratory distress on home oxygen requirements CT of chest without infiltrates or pneumonia; evidence of pulmonary edema noted antibiotics dc'd continue attempts at diuresis follow respiratory status (4) Acute on chronic systolic heart failure: Code(s): I50.23 - Acute on chronic systolic (congestive) heart failure Status: Acute Assessment and Plan: as suggested by imaging, labs, and exam Echo (09/27/24) at [facility] noted: ejection fraction is visually estimated to be 10-15% diastolic function E to E' ratio is >15 suggesting a high pulminary wedge pressure and LV diastolic dysfunction no obvious thrombus noted mildly dilated right and left atrium. mild tricuspid regurgitation estimated right ventricular systolic pressure is 33 mmHg IVC is dilated estimated RA pressure is 8 mmHg normal cardiac catheterization noted (September 2024) institution of GMDT was limited by hypotension during September 2024 hospitalization Cardiology following repeat Echo (12/05) reviewed: four-chamber dilated cardiomyopathy profound left and right ventricular systolic dysfunction ejection fraction 10-15% mild MR resulting from annular dilation mild aortic valve sclerosis moderate to severe tricuspid valve regurgitation moderate pulmonary hypertension, estimated pulmonary arterial systolic pressure is 57 mmHg on dobutamine + IV diuretics along with IV albumin better diuresis noted.... however, not in negative fluid balance (5) Hypotension: Code(s): I95.9 - Hypotension, unspecified Status: Acute Assessment and Plan: as noted since admission probably related to severity of her cardiomyopathy (cardiogenic shock) remains on dobutamine gtt weaned off levophed give lowish cortisol, stress dose steroids added follow trend of hemodynamics (6) Atrial fibrillation with RVR: Code(s): I48.91 - Unspecified atrial fibrillation Status: Acute Assessment and Plan: noted again but rate controlled off amiodarone gtt at this time on oral amiodarone repeat Echo noted (see #4) Cardiology following on anticoagulation (heparin gtt) (7) Hyponatremia: Code(s): E87.1 - Hypo-osmolality and hyponatremia Status: Acute Assessment and Plan: initially improving but worse this AM presumably related to chronic CHF along with SANDRA/CKD and hypervolemia sodium was running around 133 - 137 during September 2024 hospitalization at [facility] evaluation noted: TSH okay cortisol on the lower end (but on steroids at this time) urine electrolytes noted SPEP/UPEP and serum/urine osmolality pending follow trend of repeat sodiums (8) Lower extremity edema: Code(s): R60.0 - Localized edema Status: Acute Assessment and Plan: localized to her lower extremities likely a manifestation of chronic CHF and current SANDRA on CKD lower extremity dopplers negative diuresis as tolerated consider DARRYL-wraps/compression stocking and LE elevation Will continue to follow. Subjective Date/time seen: 12/09/24 11:33 Interval history: Follow-up for acute kidney injury/acute renal failure on chronic kidney disease. Overall, states she is feeling better in general; renal function/creatinine slowly improving although sodium dropped a bit by trend of labs; remains on dobutamine gtt but levophed has been weaned off; good urine output noted with IV diuretic therapy; no other issues/events overnight or earlier this morning. Exam Narrative: General: WD/WN female in NAD Heart: normal S1 and S2; no rub Lungs: coarse with a few bibasilar crackles Abdomen: soft, nontender, nondistended, positive bowel sounds Extremities: no cyanosis or clubbing; 1 - 2+ edema Skin: no nodules Objective Data Vital Signs Vital Signs: Vital Signs Temp Pulse Resp BP Pulse Ox O2 Del Method O2 Flow Rate 12/09/24 10:00 97.1 F L 83 25 H 100/72 95 12/09/24 08:13 80 12/09/24 08:00 96.4 F L 88 20 83/56 L 100 12/09/24 08:00 88 12/09/24 08:00 88 20 100 Nasal Cannula 2 12/09/24 06:00 81 118/73 12/09/24 06:00 81 118/73 12/09/24 06:00 81 20 118/73 98 12/09/24 06:00 77 12/09/24 05:07 82 114/76 12/09/24 04:52 78 108/70 12/09/24 04:31 85 116/72 12/09/24 04:00 80 97/64 L 12/09/24 04:00 80 97/64 L 12/09/24 04:00 96.6 F L 80 16 97/64 L 95 12/09/24 04:00 79 12/09/24 04:00 95 Nasal Cannula 2 12/09/24 03:05 79 104/70 12/09/24 02:48 83 107/58 L 12/09/24 02:18 81 111/62 12/09/24 02:00 89 97/78 L 12/09/24 02:00 89 97/78 L 12/09/24 02:00 96.8 F L 89 15 97/78 L 97 12/09/24 02:00 83 12/09/24 01:31 90 107/71 12/09/24 01:16 88 109/66 12/09/24 01:04 80 103/74 12/09/24 00:35 83 108/60 12/09/24 00:22 86 107/93 H 12/09/24 00:00 94 12/09/24 00:00 97.2 F L 89 18 106/56 L 97 12/09/24 00:00 97 Nasal Cannula 2 12/08/24 23:58 89 108/81 12/08/24 23:57 89 108/81 12/08/24 22:00 90 83/63 L 12/08/24 22:00 90 83/63 L 12/08/24 22:00 97.5 F L 90 24 H 83/63 L 94 12/08/24 22:00 90 12/08/24 21:29 102 H 103/62 12/08/24 21:29 102 H 103/62 12/08/24 20:09 95 Nasal Cannula 2 12/08/24 20:00 97.6 F 91 24 H 101/59 L 94 12/08/24 20:00 97 12/08/24 20:00 94 Nasal Cannula 2 12/08/24 20:00 91 101/59 L 12/08/24 20:00 91 101/59 L 12/08/24 19:20 99 92/54 L 12/08/24 19:20 99 92/54 L 12/08/24 18:19 92 97/48 L Intake/Output Intake/Output: Intake & Output 12/06/24 12/07/24 12/08/24 12/09/24 23:59 23:59 23:59 23:59 Intake Total 3037.7 2418.5 2279.6 2187.2 Output Total 2075 2400 1400 925 Balance 962.7 18.5 879.6 1262.2 Meds/Results Medications: Active Medications Generic Name Dose Route Start Last Admin Trade Name Freq PRN Reason Stop Dose Admin Acetaminophen 650 mg 12/04/24 22:10 Acetaminophen 325 Mg Tablet PO Q4H PRN Mild Pain (1-3) or Fever Hydrocodone Bitart/Acetaminophen 1 tab 12/05/24 01:36 12/08/24 22:13 Hydrocodone/Acetaminophen (*Crx) 5-325 Mg Tablet PO 1 tab Q8H PRN Administration pain 7-10 Albuterol/Ipratropium 3 ml 12/06/24 08:00 Ipratropium 0.5 Mg/Albuterol Sulfate 2.5 Mg Ampul.Neb 3 Ml INHALATION Q6HRT PRN wheezine Amiodarone HCl 400 mg 12/07/24 09:15 12/09/24 08:13 Amiodarone Hcl 200 Mg Tablet PO 400 mg DAILY@0800 KRISTEN Administration Apixaban 5 mg 12/09/24 21:00 Apixaban 5 Mg Tablet PO Q12HR KRISTEN Atorvastatin Calcium 20 mg 12/05/24 09:00 12/09/24 08:14 Atorvastatin 20 Mg Tablet PO 20 mg DAILY KRISTEN Administration Furosemide 80 mg 12/06/24 09:00 12/09/24 16:51 Furosemide Inj 100 Mg/10 Ml Vial IV PUSH 80 mg BID KRISTEN Administration Hydrocortisone Sodium Succinate 100 mg 12/06/24 14:00 12/09/24 13:50 Hydrocortisone Sodium Succinate 100 Mg/2 Ml Vial IV PUSH 100 mg Q8HR KRISTEN Administration Dobutamine HCl/Dextrose 250 mg in 250 mls @ 15.15 mls/hr 12/06/24 07:55 12/09/24 13:57 Dobutamine 250 Mg/D5w 250 Ml IV CONT 2.5 mcg/kg/min .[id number] KRISTEN 15.15 mls/hr Administration 2.5 MCG/KG/MIN Albumin Human 100 mls @ 60 mls/hr 12/06/24 09:00 12/09/24 16:51 Albutein IVPB 60 mls/hr BID KRISTEN Administration Levothyroxine Sodium 50 mcg 12/08/24 08:15 12/09/24 05:41 Levothyroxine Sodium 50 Mcg Tablet PO 50 mcg DAILY@0630 KRISTEN Administration Fluticasone/Salmeterol 2 puff 12/05/24 08:00 12/09/24 08:07 Fluticasone/Salmeterol 115-21 Mcg Inhaler 1 Puff INHALATION 2 puff Q12HRT KRISTEN Administration Sodium Chloride 10 ml 12/05/24 14:00 12/09/24 14:02 Central Line Flush IV PUSH 10 ml Q8HR KRISTEN Administration Sodium Chloride 10 ml 12/05/24 11:12 Central Line Flush IV PUSH PRN PRN with TPN bag changes Sodium Chloride 20 ml 12/05/24 11:12 12/08/24 06:11 Central Line Flush IV PUSH 20 ml PRN PRN Administration after blood draws Radiology Results: ITS Impressions Chest X-Ray 12/05/24 11:31 IMPRESSION: No acute cardiopulmonary pathology. Renal Ultrasound 12/05/24 15:17 IMPRESSION: No hydronephrosis or renal calculi. Findings suggesting medical renal disease. Chest CT 12/05/24 15:24 IMPRESSION: Findings consistent with pulmonary edema with a small right-sided pleural effusion. Additional findings worrisome for pulmonary hypertension, as detailed above. Trace anasarca. Intra-abdominal ascites Venous Doppler Study 12/05/24 16:06 IMPRESSION: Negative bilateral lower extremity venous US. No deep vein thrombosis. Labs Labs: Laboratory Tests 12/09/24 06:58 12/09/24 06:58 Calcium 9.1 Phosphorus 3.3 Magnesium 2.1 Total Bilirubin 3.6 H AST 113 H ALT 131 H Alkaline Phosphatase 70 NT-Pro-B Natriuret Pep 96867 H Total Protein 6.5 Albumin 3.9
--- NOTE | 2024-12-09 11:33 | P.PNNP_ITS ---
Progress Note: A&P Assessment and Plan (1) Acute kidney injury: Code(s): N17.9 - Acute kidney failure, unspecified Status: Acute Assessment and Plan: * slow improvement noted * as noted on admission - creatinine 2.66mg/dl * suspect multifactorial: * hemodynamic instability/hypotension * decompensated heart failure * use of ARB and diuretics prior to admission * Afib with RVR * infection -- less likely * other (?) * evaluation to date noted: * renal ultrasound with medical renal disease * urine electrolytes prerenal (indicative of depressed EF given volume overloaded state) * urine eosinophils negative * CPK mildly elevated (but not enough to affect kidney function) * moderate proteinuria (~ 900mg) * suspect due to cardiorenal syndrome worsened by hemodynamic instability/severe hypotension * follow repeat labs and UOP (2) Stage 3b chronic kidney disease: Code(s): N18.32 - Chronic kidney disease, stage 3b Status: Acute Assessment and Plan: * creatinine running around 1.60 - 1.75mg/dl during September [address] [facility] * earlier this month creatinine was noted to be 2.18mg/dl * creatinine in September 2023 was running 1.2 - 1.3mg/dl * suspect underlying CKD due cardiorenal syndrome given depressed EF/cardiomyopathy (3) Shortness of breath: Code(s): R06.02 - Shortness of breath Status: Acute Assessment and Plan: * due to several issues: * volume overload * acute on chronic CHF/cardiomyopathy * atrial fibrillation with RVR * possible pneumonia (less likely) * other (?) * no evidence of respiratory distress * on home oxygen requirements * CT of chest without infiltrates or pneumonia; evidence of pulmonary edema noted * antibiotics dc'd * continue attempts at diuresis * follow respiratory status (4) Acute on chronic systolic heart failure: Code(s): I50.23 - Acute on chronic systolic (congestive) heart failure Status: Acute Assessment and Plan: * as suggested by imaging, labs, and exam * Echo (09/27/24) at [facility] noted: * ejection fraction is visually estimated to be 10-15% * diastolic function E to E' ratio is >15 suggesting a high pulminary wedge pressure and LV diastolic dysfunction * no obvious thrombus noted * mildly dilated right and left atrium. * mild tricuspid regurgitation * estimated right ventricular systolic pressure is 33 mmHg * IVC is dilated * estimated RA pressure is 8 mmHg * normal cardiac catheterization noted (September 2024) * institution of GMDT was limited by hypotension during September 2024 hospitalization * Cardiology following * repeat Echo (12/05) reviewed: * four-chamber dilated cardiomyopathy * profound left and right ventricular systolic dysfunction ejection fraction 10-15% * mild MR resulting from annular dilation * mild aortic valve sclerosis * moderate to severe tricuspid valve regurgitation * moderate pulmonary hypertension, estimated pulmonary arterial systolic pressure is 57 mmHg * on dobutamine + IV diuretics along with IV albumin * better diuresis noted.... * however, not in negative fluid balance (5) Hypotension: Code(s): I95.9 - Hypotension, unspecified Status: Acute Assessment and Plan: * as noted since admission * probably related to severity of her cardiomyopathy (cardiogenic shock) * remains on dobutamine gtt * weaned off levophed * give lowish cortisol, stress dose steroids added * follow trend of hemodynamics (6) Atrial fibrillation with RVR: Code(s): I48.91 - Unspecified atrial fibrillation Status: Acute Assessment and Plan: * noted again but rate controlled * off amiodarone gtt at this time * on oral amiodarone * repeat Echo noted (see #4) * Cardiology following * on anticoagulation (heparin gtt) (7) Hyponatremia: Code(s): E87.1 - Hypo-osmolality and hyponatremia Status: Acute Assessment and Plan: * initially improving but worse this AM * presumably related to chronic CHF along with SANDRA/CKD and hypervolemia * sodium was running around 133 - 137 during September 2024 hospitalization at [facility] * evaluation noted: * TSH okay * cortisol on the lower end (but on steroids at this time) * urine electrolytes noted * SPEP/UPEP and serum/urine osmolality pending * follow trend of repeat sodiums (8) Lower extremity edema: Code(s): R60.0 - Localized edema Status: Acute Assessment and Plan: * localized to her lower extremities * likely a manifestation of chronic CHF and current SANDRA on CKD * lower extremity dopplers negative * diuresis as tolerated * consider DARRYL-wraps/compression stocking and LE elevation Will continue to follow. L Subjective Date/time seen: 12/09/24 11:33 Interval history: Follow-up for acute kidney injury/acute renal failure on chronic kidney disease. Overall, states she is feeling better in general; renal function/creatinine slowly improving although sodium dropped a bit by trend of labs; remains on dobutamine gtt but levophed has been weaned off; good urine output noted with IV diuretic therapy; no other issues/events overnight or earlier this morning. Exam 2 Narrative: General: WD/WN female in NAD Heart: normal S1 and S2; no rub Lungs: coarse with a few bibasilar crackles Abdomen: soft, nontender, nondistended, positive bowel sounds Extremities: no cyanosis or clubbing; 1 - 2+ edema Skin: no nodules Objective Data Vital Signs Vital Signs: Vital Signs Temp Pulse Resp BP Pulse Ox O2 Del Method O2 Flow Rate 12/09/24 10:00 97.1 F L 83 25 H 100/72 95 12/09/24 08:13 80 12/09/24 08:00 96.4 F L 88 20 83/56 L 100 12/09/24 08:00 88 12/09/24 08:00 88 20 100 Nasal Cannula 2 12/09/24 06:00 81 118/73 12/09/24 06:00 81 118/73 12/09/24 06:00 81 20 118/73 98 12/09/24 06:00 77 12/09/24 05:07 82 114/76 12/09/24 04:52 78 108/70 12/09/24 04:31 85 116/72 12/09/24 04:00 80 97/64 L 12/09/24 04:00 80 97/64 L 12/09/24 04:00 96.6 F L 80 16 97/64 L 95 12/09/24 04:00 79 12/09/24 04:00 95 Nasal Cannula 2 12/09/24 03:05 79 104/70 12/09/24 02:48 83 107/58 L 12/09/24 02:18 81 111/62 12/09/24 02:00 89 97/78 L 12/09/24 02:00 89 97/78 L 12/09/24 02:00 96.8 F L 89 15 97/78 L 97 12/09/24 02:00 83 12/09/24 01:31 90 107/71 12/09/24 01:16 88 109/66 12/09/24 01:04 80 103/74 12/09/24 00:35 83 108/60 12/09/24 00:22 86 107/93 H 12/09/24 00:00 94 12/09/24 00:00 97.2 F L 89 18 106/56 L 97 12/09/24 00:00 97 Nasal Cannula 2 12/08/24 23:58 89 108/81 12/08/24 23:57 89 108/81 12/08/24 22:00 90 83/63 L 12/08/24 22:00 90 83/63 L 12/08/24 22:00 97.5 F L 90 24 H 83/63 L 94 12/08/24 22:00 90 12/08/24 21:29 102 H 103/62 12/08/24 21:29 102 H 103/62 12/08/24 20:09 95 Nasal Cannula 2 12/08/24 20:00 97.6 F 91 24 H 101/59 L 94 12/08/24 20:00 97 12/08/24 20:00 94 Nasal Cannula 2 12/08/24 20:00 91 101/59 L 12/08/24 20:00 91 101/59 L 12/08/24 19:20 99 92/54 L 12/08/24 19:20 99 92/54 L 12/08/24 18:19 92 97/48 L Intake/Output Intake/Output: Intake & Output 12/06/24 12/07/24 12/08/24 12/09/24 23:59 23:59 23:59 23:59 Intake Total 3037.7 2418.5 2279.6 2187.2 Output Total 2075 2400 1400 925 Balance 962.7 18.5 879.6 1262.2 Meds/Results Medications: Active Medications Generic Name Dose Route Start Last Admin Trade Name Freq PRN Reason Stop Dose Admin Acetaminophen 650 mg 12/04/24 22:10 Acetaminophen 325 Mg Tablet PO Q4H PRN Mild Pain (1-3) or Fever Hydrocodone Bitart/Acetaminophen 1 tab 12/05/24 01:36 12/08/24 22:13 Hydrocodone/Acetaminophen (*Crx) 5-325 Mg Tablet PO 1 tab Q8H PRN Administration pain 7-10 Albuterol/Ipratropium 3 ml 12/06/24 08:00 Ipratropium 0.5 Mg/Albuterol Sulfate 2.5 Mg Ampul.Neb 3 Ml INHALATION Q6HRT PRN wheezine Amiodarone HCl 400 mg 12/07/24 09:15 12/09/24 08:13 Amiodarone Hcl 200 Mg Tablet PO 400 mg DAILY@0800 KRISTEN Administration Apixaban 5 mg 12/09/24 21:00 Apixaban 5 Mg Tablet PO Q12HR KRISTEN Atorvastatin Calcium 20 mg 12/05/24 09:00 12/09/24 08:14 Atorvastatin 20 Mg Tablet PO 20 mg DAILY KRISTEN Administration Furosemide 80 mg 12/06/24 09:00 12/09/24 16:51 Furosemide Inj 100 Mg/10 Ml Vial IV PUSH 80 mg BID KRISTEN Administration Hydrocortisone Sodium Succinate 100 mg 12/06/24 14:00 12/09/24 13:50 Hydrocortisone Sodium Succinate 100 Mg/2 Ml Vial IV PUSH 100 mg Q8HR KRISTEN Administration Dobutamine HCl/Dextrose 250 mg in 250 mls @ 15.15 mls/hr 12/06/24 07:55 12/09/24 13:57 Dobutamine 250 Mg/D5w 250 Ml IV CONT 2.5 mcg/kg/min .[id number] KRISTEN 15.15 mls/hr Administration 2.5 MCG/KG/MIN Albumin Human 100 mls @ 60 mls/hr 12/06/24 09:00 12/09/24 16:51 Albutein IVPB 60 mls/hr BID KRISTEN Administration Levothyroxine Sodium 50 mcg 12/08/24 08:15 12/09/24 05:41 Levothyroxine Sodium 50 Mcg Tablet PO 50 mcg DAILY@0630 KRISTEN Administration Fluticasone/Salmeterol 2 puff 12/05/24 08:00 12/09/24 08:07 Fluticasone/Salmeterol 115-21 Mcg Inhaler 1 Puff INHALATION 2 puff Q12HRT KRISTEN Administration Sodium Chloride 10 ml 12/05/24 14:00 12/09/24 14:02 Central Line Flush IV PUSH 10 ml Q8HR KRISTEN Administration Sodium Chloride 10 ml 12/05/24 11:12 Central Line Flush IV PUSH PRN PRN with TPN bag changes Sodium Chloride 20 ml 12/05/24 11:12 12/08/24 06:11 Central Line Flush IV PUSH 20 ml PRN PRN Administration after blood draws Radiology Results: ITS Impressions Chest X-Ray 12/05/24 11:31 IMPRESSION: No acute cardiopulmonary pathology. Renal Ultrasound 12/05/24 15:17 IMPRESSION: No hydronephrosis or renal calculi. Findings suggesting medical renal disease. Chest CT 12/05/24 15:24 IMPRESSION: Findings consistent with pulmonary edema with a small right-sided pleural effusion. Additional findings worrisome for pulmonary hypertension, as detailed above. Trace anasarca. Intra-abdominal ascites Venous Doppler Study 12/05/24 16:06 IMPRESSION: Negative bilateral lower extremity venous US. No deep vein thrombosis. Labs Labs: Laboratory Tests 12/09/24 06:58 12/09/24 06:58 Calcium 9.1 Phosphorus 3.3 Magnesium 2.1 Total Bilirubin 3.6 H AST 113 H ALT 131 H Alkaline Phosphatase 70 NT-Pro-B Natriuret Pep 15323 H Total Protein 6.5 Albumin 3.9
[2024-12-09 12:34] LABS: Osmolality, Urine. 237 mOsm/kg (50-1200)
[2024-12-09 13:22] LABS: Partial Thromboplastin Time 60.7 Seconds (22.3-36.8)
[2024-12-09 13:43] LABS: Kappa\\Lambda Light Chains 1.22 (0.26-1.65); Lambda Light Chain 59.7 mg/L (5.7-26.3)
[2024-12-09] MEDS: POTASSIUM CHLORIDE 20 MEQ ER TABLET 40 MEQ PO ×2 (13:49→16:51)
[2024-12-09] MEDS: DOBUTamine 250 MG/D5W 250 ML 250 MG/250 ML BAG 15.15 MG IV CONT (13:57)
[2024-12-09] MEDS: APIXABAN 5 MG TABLET PO (20:20)
[2024-12-09] MEDS: HYDROcodone/acetaminophen (*CRX) 5-325 MG TABLET 1 TAB PO (20:20)
[2024-12-09 21:08] LABS: Abnormal Protein Band 1 0.2 g/dL (NONE DETECTED); Albumin 3.1 g/dL (3.8-4.8); Alpha 1 Globulin 0.4 g/dL (0.2-0.3); Alpha 2 Globulin 0.6 g/dL (0.5-0.9); Beta 1 Globulin 0.4 g/dL (0.4-0.6); Gamma Globulin 1.5 g/dL (0.8-1.7)
[2024-12-09] MEDS: IPRATROPIUM 0.5 MG/ALBUTEROL SULFATE 2.5 MG AMPUL.NEB 3 ML INHALATION (21:08)
[2024-12-10] VITALS (27 sets, daily range): BP systolic 85–123; BP diastolic 54–85; PULSE 77–91; RESP 17–28; TEMP 36.1–36.4; O2SAT 94–100
[2024-12-10] MEDS: DOBUTamine 250 MG/D5W 250 ML 250 MG/250 ML BAG 15.15 MG IV CONT (04:00)
[2024-12-10 04:22] LABS: Hematocrit 34.3 % (37.0-47.0); Hemoglobin 10.8 g/dL (12.0-15.0); Mean Corpuscular HGB Conc 31.5 g/dl (32-36); Mean Corpuscular Hemoglobin 28.6 pg (26-34); Mean Platelet Volume 9.4 fl (7.4-10.4); Platelet Count Result 75 k/mm3 (150-375); Red Blood Count 3.77 M/mm3 (4.2-5.4); White Blood Count 5.1 K/mm3 (4.5-10.0)
[2024-12-10 04:48] LABS: Alanine Aminotransferase 118 U/L (6-35); Albumin Level 4.5 g/dL (3.5-5.1); Alkaline Phosphatase 72 U/L (38-126); Anion Gap 14 mmol/L (4-12); Aspartate Amino Transferase 94 U/L (14-36); Bilirubin,Total 4.1 mg/dL (0.2-1.3); Blood Urea Nitrogen 48 mg/dL (7-17); Calcium 9.8 mg/dL (8.4-10.2); Carbon Dioxide 23 mmol/L (22-30); Chloride 91 mmol/L (98-107); Estimated CRCL calculation 28 ml/min; Estimated Glomerular Filt Rate 22; Glucose 123 mg/dL (65-110); Magnesium 2.1 mg/dL (1.6-2.3); Phosphorus 3.1 mg/dL (2.5-4.5); Potassium 4.3 mmol/L (3.4-5.0); Sodium 128 mmol/L (137-145); Total Protein 7.2 g/dL (6.3-8.2)
[2024-12-10] MEDS: LEVOTHYROXINE SODIUM 50 MCG TABLET PO (05:34)
[2024-12-10] MEDS: HYDROCORTISONE SODIUM SUCCINATE 100 MG/2 ML VIAL IV PUSH (05:36)
[2024-12-10] MEDS: CENTRAL LINE FLUSH 10 ML IV PUSH ×3 (05:36→20:31)
[2024-12-10] MEDS: CENTRAL LINE FLUSH 20 ML IV PUSH (05:36)
[2024-12-10] MEDS: FLUTICASONE/SALMETEROL 115-21 MCG INHALER 1 PUFF 2 PUFF INHALATION ×2 (08:48→20:03)
[2024-12-10] MEDS: polyethylene glycoL 3350 17 GM POWD.PACK PO (08:54)
[2024-12-10] MEDS: AMIODARONE HCL 200 MG TABLET 400 MG PO (08:54)
[2024-12-10] MEDS: ALBUMIN HUMAN 25% 25 GM/100 ML 100 ML IVPB ×2 (08:54→16:03)
[2024-12-10] MEDS: DOCUSATE SODIUM 100 MG CAPSULE PO ×2 (08:54→20:31)
[2024-12-10] MEDS: ATORVASTATIN 20 MG TABLET PO (08:54)
--- NOTE | 2024-12-10 09:34 | ECG_ITS ---
Test Date: 2024-12-10 09:37:21 Measurements Intervals [place] Rate: 79 P: 25 [place]: 170 QRS: -9 QRSD: 141 T: 201 QT: 437 QTc: 503 Interpretive Statements SINUS RHYTHM LEFT BUNDLE BRANCH BLOCK BASELINE ARTIFACT- I, II, AVR, AVL, AVF, V1 ABNORMAL ECG Compared to ECG 12/04/2024 20:13:31 ATRIAL FLUTTER NO LONGER PRESENT Electronically Signed On 12-10-2024 09:41:11 CDT by Demario Pastrana D.O.
--- NOTE | 2024-12-10 11:01 | P.PNNP_ITS ---
Progress Note: A&P Assessment and Plan (1) Acute kidney injury: Code(s): N17.9 - Acute kidney failure, unspecified Status: Acute Assessment and Plan: * creatinine continues to fluctuate * as noted on admission - creatinine 2.66mg/dl * suspect multifactorial: * hemodynamic instability/hypotension * decompensated heart failure * use of ARB and diuretics prior to admission * Afib with RVR * infection -- less likely * other (?) * evaluation to date noted: * renal ultrasound with medical renal disease * urine electrolytes prerenal (indicative of depressed EF given volume overloaded state) * urine eosinophils negative * CPK mildly elevated (but not enough to affect kidney function) * moderate proteinuria (~ 900mg) * suspect due to cardiorenal syndrome worsened by hemodynamic instability/severe hypotension * follow repeat labs and UOP (2) Stage 3b chronic kidney disease: Code(s): N18.32 - Chronic kidney disease, stage 3b Status: Acute Assessment and Plan: * creatinine running around 1.60 - 1.75mg/dl during September [address] [facility] * earlier this month creatinine was noted to be 2.18mg/dl * creatinine in September 2023 was running 1.2 - 1.3mg/dl * suspect underlying CKD due cardiorenal syndrome given depressed EF/cardiomyopathy (3) Shortness of breath: Code(s): R06.02 - Shortness of breath Status: Acute Assessment and Plan: * due to several issues: * volume overload * acute on chronic CHF/cardiomyopathy * atrial fibrillation with RVR * possible pneumonia (less likely) * other (?) * no evidence of respiratory distress * on home oxygen requirements * CT of chest without infiltrates or pneumonia; evidence of pulmonary edema noted * antibiotics dc'd * continue attempts at diuresis * follow respiratory status (4) Acute on chronic systolic heart failure: Code(s): I50.23 - Acute on chronic systolic (congestive) heart failure Status: Acute Assessment and Plan: * as suggested by imaging, labs, and exam * Echo (09/27/24) at [facility] noted: * ejection fraction is visually estimated to be 10-15% * diastolic function E to E' ratio is >15 suggesting a high pulminary wedge pressure and LV diastolic dysfunction * no obvious thrombus noted * mildly dilated right and left atrium. * mild tricuspid regurgitation * estimated right ventricular systolic pressure is 33 mmHg * IVC is dilated * estimated RA pressure is 8 mmHg * normal cardiac catheterization noted (September 2024) * institution of GMDT was limited by hypotension during September 2024 hospitalization * Cardiology following * repeat Echo (12/05) reviewed: * four-chamber dilated cardiomyopathy * profound left and right ventricular systolic dysfunction ejection fraction 10-15% * mild MR resulting from annular dilation * mild aortic valve sclerosis * moderate to severe tricuspid valve regurgitation * moderate pulmonary hypertension, estimated pulmonary arterial systolic pressure is 57 mmHg * on dobutamine + IV diuretics along with IV albumin * however, not in negative fluid balance * CXR results noted (5) Hypotension: Code(s): I95.9 - Hypotension, unspecified Status: Acute Assessment and Plan: * as noted since admission * probably related to severity of her cardiomyopathy (cardiogenic shock) * remains on dobutamine gtt * weaned off levophed * give lowish cortisol, stress dose steroids added * wean as tolerated * follow trend of hemodynamics (6) Atrial fibrillation with RVR: Code(s): I48.91 - Unspecified atrial fibrillation Status: Acute Assessment and Plan: * noted again but rate controlled * off amiodarone gtt at this time * on oral amiodarone * repeat Echo noted (see #4) * Cardiology following * on anticoagulation (heparin gtt) (7) Hyponatremia: Code(s): E87.1 - Hypo-osmolality and hyponatremia Status: Acute Assessment and Plan: * continues to fluctuate * presumably related to chronic CHF along with SANDRA/CKD and hypervolemia * sodium was running around 133 - 137 during September 2024 hospitalization at [facility] * evaluation noted: * TSH okay * cortisol on the lower end (but on steroids at this time) * urine electrolytes noted * SPEP with possible M-spike; UPEP pending * serum osmolality 288; urine osmolality 237 * serum/urine immunofixation pending * follow trend of repeat sodiums (8) Lower extremity edema: Code(s): R60.0 - Localized edema Status: Acute Assessment and Plan: * localized to her lower extremities * likely a manifestation of chronic CHF and current SANDRA on CKD * lower extremity dopplers negative * diuresis as tolerated * consider DARRYL-wraps/compression stocking and LE elevation Will continue to follow. L Subjective Date/time seen: 12/10/24 11:01 Interval history: Follow-up for acute kidney injury/acute renal failure on chronic kidney disease. Renal function/creatinine as well as sodium continue to fluctuate as noted by trend of labs; remains on dobutamine gtt and switched to bumex gtt earlier today (urine output has declined in the last 24 - 48 hours and CXR still with evidence of pulmonary edema); no apparent distress noted. Exam 2 Narrative: General: WD/WN female in NAD Heart: normal S1 and S2; no rub Lungs: coarse with a few bibasilar crackles Abdomen: soft, nontender, nondistended, positive bowel sounds Extremities: no cyanosis or clubbing; 1 - 2+ edema Skin: warm and dry Objective Data Vital Signs Vital Signs: Vital Signs Temp Pulse Resp BP Pulse Ox O2 Del Method O2 Flow Rate 12/10/24 10:00 97.5 F L 83 28 H 111/63 99 12/10/24 08:55 78 106/66 12/10/24 08:54 79 12/10/24 08:53 106/66 12/10/24 08:48 79 20 12/10/24 08:48 79 20 100 Nasal Cannula 2 12/10/24 08:00 81 12/10/24 08:00 95 Nasal Cannula 2 12/10/24 08:00 83 101/72 12/10/24 08:00 97.3 F L 83 24 H 101/72 100 12/10/24 06:00 84 104/85 12/10/24 06:00 96.9 F L 84 24 H 104/85 97 12/10/24 06:00 81 12/10/24 04:00 97 F L 79 23 H 90/59 L 98 12/10/24 04:00 80 12/10/24 04:00 94 Nasal Cannula 2 12/10/24 04:00 78 90/59 L 12/10/24 04:00 78 90/59 L 12/10/24 02:00 84 99/54 L 12/10/24 02:00 97.1 F L 84 19 99/54 L 95 12/10/24 02:00 79 12/10/24 00:02 97.1 F L 90 17 85/56 L 94 12/10/24 00:00 90 85/56 L 12/10/24 00:00 87 12/10/24 00:00 94 Nasal Cannula 2 12/09/24 22:00 81 90/54 L 06/23/25 22:00 97.5 F L 84 29 H 90/54 L 92 12/09/24 22:00 84 12/09/24 21:20 82 13 12/09/24 21:08 82 13 12/09/24 20:09 84 20 99 Nasal Cannula 2 12/09/24 20:09 84 20 12/09/24 20:00 90 91/61 L 12/09/24 20:00 97.8 F 90 19 91/61 L 95 12/09/24 20:00 91 12/09/24 20:00 95 Nasal Cannula 2 12/09/24 19:00 84 91/52 L 12/09/24 18:00 97.6 F 84 22 H 92/56 L 98 12/09/24 18:00 83 12/09/24 17:50 95/53 L 12/09/24 16:00 97.6 F 85 22 H 89/62 L 93 12/09/24 16:00 85 12/09/24 16:00 85 22 H 93 Nasal Cannula 2 12/09/24 14:00 84 27 H 101/61 95 12/09/24 14:00 86 12/09/24 13:57 91 100/49 L 12/09/24 13:57 91 100/49 L 12/09/24 12:38 84 20 12/09/24 12:38 84 20 100 Nasal Cannula 2 Intake/Output Intake/Output: Intake & Output 12/07/24 12/08/24 12/09/24 12/10/24 23:59 23:59 23:59 23:59 Intake Total 2418.5 2279.6 2409.2 949.3 Output Total 2400 1400 925 125 Balance 18.5 879.6 1484.2 824.3 Meds/Results Medications: Active Medications Generic Name Dose Route Start Last Admin Trade Name Freq PRN Reason Stop Dose Admin Acetaminophen 650 mg 12/04/24 22:10 Acetaminophen 325 Mg Tablet PO Q4H PRN Mild Pain (1-3) or Fever Hydrocodone Bitart/Acetaminophen 1 tab 12/05/24 01:36 12/09/24 20:20 Hydrocodone/Acetaminophen (*Crx) 5-325 Mg Tablet PO 1 tab Q8H PRN Administration pain 7-10 Albuterol/Ipratropium 3 ml 12/06/24 08:00 12/09/24 21:08 Ipratropium 0.5 Mg/Albuterol Sulfate 2.5 Mg Ampul.Neb 3 Ml INHALATION 3 ml Q6HRT PRN Administration wheezine Amiodarone HCl 400 mg 12/07/24 09:15 12/10/24 08:54 Amiodarone Hcl 200 Mg Tablet PO 400 mg DAILY@0800 KRISTEN Administration Apixaban 5 mg 12/09/24 21:00 12/09/24 20:20 Apixaban 5 Mg Tablet PO 5 mg Q12HR KRISTEN Administration Atorvastatin Calcium 20 mg 12/05/24 09:00 12/10/24 08:54 Atorvastatin 20 Mg Tablet PO 20 mg DAILY KRISTEN Administration Docusate Sodium 100 mg 12/10/24 09:00 12/10/24 08:54 Docusate Sodium 100 Mg Capsule PO 100 mg Q12HR KRISTEN Administration Hydrocortisone Sodium Succinate 50 mg 12/10/24 18:00 Hydrocortisone Sodium Succinate 100 Mg/2 Ml Vial IV PUSH 12/14/24 17:59 Q12H KRISTEN Dobutamine HCl/Dextrose 250 mg in 250 mls @ 22.725 mls/hr 12/06/24 07:55 12/10/24 10:00 Dobutamine 250 Mg/D5w 250 Ml IV CONT 3.75 mcg/kg/min .Q11H1M KRISTEN 22.73 mls/hr Infusion 3.75 MCG/KG/MIN Albumin Human 100 mls @ 60 mls/hr 12/06/24 09:00 12/10/24 08:54 Albutein IVPB 60 mls/hr BID KRISTEN Administration Bumetanide 12 mg/ Sodium 100 mls @ 4.167 mls/hr 12/10/24 11:30 Chloride IV CONT .Q24H KRISTEN 0.5 MG/HR Levothyroxine Sodium 50 mcg 12/08/24 08:15 12/10/24 05:34 Levothyroxine Sodium 50 Mcg Tablet PO 50 mcg DAILY@0630 KRISTEN Administration Polyethylene Glycol 17 gm 12/10/24 09:00 12/10/24 08:54 Polyethylene Glycol 3350 17 Gm Powd.Pack PO 17 gm QAM KRISTEN Administration Fluticasone/Salmeterol 2 puff 12/05/24 08:00 12/10/24 08:48 Fluticasone/Salmeterol 115-21 Mcg Inhaler 1 Puff INHALATION 2 puff Q12HRT KRISTEN Administration Sodium Chloride 10 ml 12/05/24 14:00 12/10/24 05:36 Central Line Flush IV PUSH 10 ml Q8HR KRISTEN Administration Sodium Chloride 10 ml 12/05/24 11:12 Central Line Flush IV PUSH PRN PRN with TPN bag changes Sodium Chloride 20 ml 12/05/24 11:12 12/10/24 05:36 Central Line Flush IV PUSH 20 ml PRN PRN Administration after blood draws Radiology Results: ITS Impressions Renal Ultrasound 12/05/24 15:17 IMPRESSION: No hydronephrosis or renal calculi. Findings suggesting medical renal disease. Chest CT 12/05/24 15:24 IMPRESSION: Findings consistent with pulmonary edema with a small right-sided pleural effusion. Additional findings worrisome for pulmonary hypertension, as detailed above. Trace anasarca. Intra-abdominal ascites Venous Doppler Study 12/05/24 16:06 IMPRESSION: Negative bilateral lower extremity venous US. No deep vein thrombosis. Chest X-Ray 12/10/24 08:31 IMPRESSION: Cardiomegaly with cardiac decompensation and pulmonary edema. Superimposed pneumonia cannot be excluded. Labs Labs: Laboratory Tests 12/10/24 04:12 12/10/24 04:12 Calcium 9.8 Phosphorus 3.1 Magnesium 2.1 Total Bilirubin 4.1 H AST 94 H ALT 118 H Alkaline Phosphatase 72 Total Protein 7.2 Albumin 4.5 Microbiology 12/04/24 22:40 Blood Blood Culture - Final 12/04/24 22:40 Blood Blood Culture - Final
--- NOTE | 2024-12-10 13:27 | PM.PNCARD ---
Progress Note: A&P Assessment and Plan (1) Acute on chronic systolic heart failure: Code(s): I50.23 - Acute on chronic systolic (congestive) heart failure Status: Acute (2) Elevated troponin: Code(s): R77.8 - Other specified abnormalities of plasma proteins Status: Acute (3) Atrial fibrillation with RVR: Code(s): I48.91 - Unspecified atrial fibrillation Status: Acute (4) Hyperlipidemia: Code(s): E78.5 - Hyperlipidemia, unspecified Status: Acute (5) Acute kidney injury: Code(s): N17.9 - Acute kidney failure, unspecified Status: Acute (6) Stage 3b chronic kidney disease: Code(s): N18.32 - Chronic kidney disease, stage 3b Status: Acute (7) Asthma with exacerbation: Qualifiers: Asthma persistence: unspecified Asthma severity: unspecified severity Qualified Code(s): J45.901 - Unspecified asthma with (acute) exacerbation Code(s): J45.901 - Unspecified asthma with (acute) exacerbation Status: Resolved (8) Pneumonia: Code(s): J18.9 - Pneumonia, unspecified organism Status: Acute Plan 54-year-old female with history of paroxysmal atrial fibrillation (paroxysmal AFib noticed on device interrogation was very brief and so she was taken off Eliquis by EP due to very low burden of AFib, also patient had significant nosebleeds), hyperlipidemia, hypertension, chronic systolic congestive heart failure (TTE in September 2024 showed LVEF of 10-15%, mild tricuspid regurgitation; TTE in September 2023 showed LVEF of 20-25%) status post AICD, history of VT, vitamin-D deficiency, osteoarthritis, chronic back pain, asthma on 2 L oxygen at home with -Acute on chronic systolic heart failure with LVEF 10-15% by echo in September 2024 -Nonischemic cardiomyopathy; cardiac catheterization in 2021 showed no CAD -AFib with RVR-converted to sinus rhythm with amiodarone; not on anticoagulation due to low burden of AFib and history of nose bleeds -Elevated troponin (0.100, 0.119) without chest pain-most likely demand ischemia secondary to acute on chronic heart failure and a flutter with RVR -Hypertension but now hypotensive at presentation with SBP in the 90s and the blood pressure continues to remain soft with SBP in the 80s-100s -Asthma exacerbation -SANDRA on CKD Plan: -Continue inotrope assisted diuresis with dobutamine drip. Intermittent IV Lasix switched to Bumex drip. Will see how she diureses with this. -Monitor daily weight, ins and outs, renal function -Check and replace electrolytes to keep potassium greater than 4 and magnesium greater than 2 -Continue Eliquis. -Continue amiodarone PO 400 mg daily for now and switch to 200mg PO daily at discharge -Poor overall prognosis Subjective Date/time seen: 12/10/24 13:27 Interval history: Reason for encounter: AFib with RVR, acute on chronic systolic heart failure Relevant history:54-year-old female with history of paroxysmal atrial fibrillation (paroxysmal AFib noticed on device interrogation was very brief and so she was taken off Eliquis by EP due to very low burden of AFib, also patient had significant nosebleeds), hyperlipidemia, hypertension, chronic systolic congestive heart failure, nonischemic cardiomyopathy (TTE in September 2024 showed LVEF of 10-15%, mild tricuspid regurgitation; TTE in September 2023 showed LVEF of 20-25%) status post AICD, history of VT, vitamin-D deficiency, osteoarthritis, chronic back pain, asthma on 2 L oxygen at home presented with chief complaints of worsening shortness of breath and lower extremity swelling. In the ER she was tachycardic with heart rate in the 120s and had soft blood pressures with SBP in the 90. EKG showed a flutter/tachycardia with rate in the 130s, ventricular paced complexes and fusion complex, left bundle branch block. Amiodarone bolus was administered and a drip started. She converted back to sinus rhythm with amiodarone. Cardiology was consulted for further recommendations. Workup: Sodium: 127 Creatinine: 2.6 Lactate: 4.5 Troponin: 0.100, 0.119 BNP: >30,000 EKG: A flutter/tachycardia with RVR, rate in the 130s, ventricular paced complexes and fusion complex present, left bundle branch Lower extremity venous Doppler: Negative for DVT Chest x-ray: Air bronchograms within the left superior hilum suspicious for an early infiltrate CT chest: Findings consistent with pulmonary edema with a small right-sided pleural effusion. Additional findings worrisome for pulmonary hypertension. Trace anasarca. Intra-abdominal ascites Cardiac catheterization in 2021: No CAD Interval history: Patient reports improvement in breathing P she continues to have significant swelling in her lower extremities. No chest pain, palpitations, dizziness. Telemetry shows sinus tachycardia. 12/07/2024: Patient is comfortable this morning reports significant improvement in her breathing since being started on dobutamine. Chart shows urinary output is improved with I inotropic support. 12/08/2024: She continues to feel well in general. She continues to receive dobutamine and pressure support as well. Urinary output is good. 12/10: Reports shortness of breath. Hoping to go home soon. Review of Systems Cardiovascular: Cardiovascular: Reports as per HPI Exam Const: General: no acute distress HENMT: Mouth: Yes moist mucous membranes Eyes: General: appearance normal, both eyes and all related structures Sclera: sclerae normal Resp: Auscultation: diminished lung sounds Other: On supplemental oxygen Cardio: Rate: regular rate Rhythm: regular rhythm Skin: General skin exam: normal color Neuro: Speech: normal speech Psych: Mental Status: mental status grossly normal Affect: normal affect Objective Data Vital Signs Vital Signs: Vital Signs - 24 hr 12/09/24 13:57 12/09/24 13:57 12/09/24 14:00 Temperature Pulse Rate 91 91 86 Respiratory Rate Blood Pressure 100/49 L 100/49 L Pulse Oximetry Oxygen Delivery Oxygen Flow Rate Fraction of Inspired Oxygen 12/09/24 14:00 12/09/24 16:00 12/09/24 16:00 Temperature Pulse Rate 84 85 85 Respiratory Rate 27 H 22 H Blood Pressure 101/61 Pulse Oximetry 95 93 Oxygen Delivery Nasal Cannula Oxygen Flow Rate 2 Fraction of Inspired Oxygen 28 12/09/24 16:00 12/09/24 17:50 12/09/24 18:00 Temperature 36.4 C Pulse Rate 85 83 Respiratory Rate 22 H Blood Pressure 89/62 L 95/53 L Pulse Oximetry 93 Oxygen Delivery Oxygen Flow Rate Fraction of Inspired Oxygen 12/09/24 18:00 12/09/24 19:00 12/09/24 20:00 Temperature 36.4 C Pulse Rate 84 84 Respiratory Rate 22 H Blood Pressure 92/56 L 91/52 L Pulse Oximetry 98 95 Oxygen Delivery Nasal Cannula Oxygen Flow Rate 2 Fraction of Inspired Oxygen 12/09/24 20:00 12/09/24 20:00 12/09/24 20:00 Temperature 36.6 C Pulse Rate 91 90 90 Respiratory Rate 19 Blood Pressure 91/61 L 91/61 L Pulse Oximetry 95 Oxygen Delivery Oxygen Flow Rate Fraction of Inspired Oxygen 12/09/24 20:09 12/09/24 20:09 12/09/24 21:08 Temperature Pulse Rate 84 84 82 Respiratory Rate 20 20 13 Blood Pressure Pulse Oximetry 99 Oxygen Delivery Nasal Cannula Oxygen Flow Rate 2 Fraction of Inspired Oxygen 12/09/24 21:20 12/09/24 22:00 12/09/24 22:00 Temperature 36.4 C L Pulse Rate 82 84 84 Respiratory Rate 13 29 H Blood Pressure 90/54 L Pulse Oximetry 92 Oxygen Delivery Oxygen Flow Rate Fraction of Inspired Oxygen 12/09/24 22:00 12/10/24 00:00 12/10/24 00:00 Temperature Pulse Rate 81 87 Respiratory Rate Blood Pressure 90/54 L Pulse Oximetry 94 Oxygen Delivery Nasal Cannula Oxygen Flow Rate 2 Fraction of Inspired Oxygen 12/10/24 00:00 12/10/24 00:02 12/10/24 02:00 Temperature 36.2 C L Pulse Rate 90 90 79 Respiratory Rate 17 Blood Pressure 85/56 L 85/56 L Pulse Oximetry 94 Oxygen Delivery Oxygen Flow Rate Fraction of Inspired Oxygen 12/10/24 02:00 12/10/24 02:00 12/10/24 04:00 Temperature 36.2 C L Pulse Rate 84 84 78 Respiratory Rate 19 Blood Pressure 99/54 L 99/54 L 90/59 L Pulse Oximetry 95 Oxygen Delivery Oxygen Flow Rate Fraction of Inspired Oxygen 12/10/24 04:00 12/10/24 04:00 12/10/24 04:00 Temperature Pulse Rate 78 80 Respiratory Rate Blood Pressure 90/59 L Pulse Oximetry 94 Oxygen Delivery Nasal Cannula Oxygen Flow Rate 2 Fraction of Inspired Oxygen 12/10/24 04:00 12/10/24 06:00 12/10/24 06:00 Temperature 36.1 C L 36.1 C L Pulse Rate 79 81 84 Respiratory Rate 23 H 24 H Blood Pressure 90/59 L 104/85 Pulse Oximetry 98 97 Oxygen Delivery Oxygen Flow Rate Fraction of Inspired Oxygen 12/10/24 06:00 12/10/24 08:00 12/10/24 08:00 Temperature 36.3 C L Pulse Rate 84 83 83 Respiratory Rate 24 H Blood Pressure 104/85 101/72 101/72 Pulse Oximetry 100 Oxygen Delivery Oxygen Flow Rate Fraction of Inspired Oxygen 12/10/24 08:00 12/10/24 08:00 12/10/24 08:48 Temperature Pulse Rate 81 79 Respiratory Rate 20 Blood Pressure Pulse Oximetry 95 100 Oxygen Delivery Nasal Cannula Nasal Cannula Oxygen Flow Rate 2 2 Fraction of Inspired Oxygen 12/10/24 08:48 12/10/24 08:53 12/10/24 08:54 Temperature Pulse Rate 79 79 Respiratory Rate 20 Blood Pressure 106/66 Pulse Oximetry Oxygen Delivery Oxygen Flow Rate Fraction of Inspired Oxygen 12/10/24 08:55 12/10/24 10:00 12/10/24 10:00 Temperature 36.4 C L Pulse Rate 78 83 78 Respiratory Rate 28 H Blood Pressure 106/66 111/63 111/63 Pulse Oximetry 99 Oxygen Delivery Oxygen Flow Rate Fraction of Inspired Oxygen 12/10/24 10:00 12/10/24 10:00 12/10/24 12:00 Temperature Pulse Rate 80 Respiratory Rate Blood Pressure 111/63 Pulse Oximetry 95 Oxygen Delivery Nasal Cannula Oxygen Flow Rate 2 Fraction of Inspired Oxygen 12/10/24 12:00 12/10/24 12:12 12/10/24 12:53 Temperature 36.3 C L Pulse Rate 77 90 Respiratory Rate 28 H Blood Pressure 119/63 107/66 Pulse Oximetry 98 Oxygen Delivery Oxygen Flow Rate Fraction of Inspired Oxygen Intake/Output Intake/Output: Intake & Output 12/07/24 12/08/24 12/09/24 12/10/24 23:59 23:59 23:59 23:59 Intake Total 2418.5 2279.6 2409.2 949.3 Output Total 2400 1400 925 125 Balance 18.5 879.6 1484.2 824.3 Meds/Results Medications: Active Medications Generic Name Dose Route Start Last Admin Trade Name Freq PRN Reason Stop Dose Admin Acetaminophen 650 mg 12/04/24 22:10 Acetaminophen 325 Mg Tablet PO Q4H PRN Mild Pain (1-3) or Fever Hydrocodone Bitart/Acetaminophen 1 tab 12/05/24 01:36 12/09/24 20:20 Hydrocodone/Acetaminophen (*Crx) 5-325 Mg Tablet PO 1 tab Q8H PRN Administration pain 7-10 Albuterol/Ipratropium 3 ml 12/06/24 08:00 12/09/24 21:08 Ipratropium 0.5 Mg/Albuterol Sulfate 2.5 Mg Ampul.Neb 3 Ml INHALATION 3 ml Q6HRT PRN Administration wheezine Amiodarone HCl 400 mg 12/07/24 09:15 12/10/24 08:54 Amiodarone Hcl 200 Mg Tablet PO 400 mg DAILY@0800 KRISTEN Administration Apixaban 5 mg 12/09/24 21:00 12/09/24 20:20 Apixaban 5 Mg Tablet PO 5 mg Q12HR KRISTEN Administration Atorvastatin Calcium 20 mg 12/05/24 09:00 12/10/24 08:54 Atorvastatin 20 Mg Tablet PO 20 mg DAILY KRISTEN Administration Docusate Sodium 100 mg 12/10/24 09:00 12/10/24 08:54 Docusate Sodium 100 Mg Capsule PO 100 mg Q12HR KRISTEN Administration Hydrocortisone Sodium Succinate 50 mg 12/10/24 18:00 Hydrocortisone Sodium Succinate 100 Mg/2 Ml Vial IV PUSH 12/14/24 17:59 Q12H KRISTEN Dobutamine HCl/Dextrose 250 mg in 250 mls @ 22.725 mls/hr 12/06/24 07:55 12/10/24 10:00 Dobutamine 250 Mg/D5w 250 Ml IV CONT 3.75 mcg/kg/min .Q11H1M KRISTEN 22.73 mls/hr Infusion 3.75 MCG/KG/MIN Albumin Human 100 mls @ 60 mls/hr 12/06/24 09:00 12/10/24 08:54 Albutein IVPB 60 mls/hr BID KRISTEN Administration Bumetanide 12 mg/ Sodium 100 mls @ 4.167 mls/hr 12/10/24 11:30 12/10/24 12:53 Chloride IV CONT 1 mg/hr .Q24H KRISTEN 8.33 mls/hr Administration 0.5 MG/HR Levothyroxine Sodium 50 mcg 12/08/24 08:15 12/10/24 05:34 Levothyroxine Sodium 50 Mcg Tablet PO 50 mcg DAILY@0630 KRISTEN Administration Polyethylene Glycol 17 gm 12/10/24 09:00 12/10/24 08:54 Polyethylene Glycol 3350 17 Gm Powd.Pack PO 17 gm QAM KRISTEN Administration Fluticasone/Salmeterol 2 puff 12/05/24 08:00 12/10/24 08:48 Fluticasone/Salmeterol 115-21 Mcg Inhaler 1 Puff INHALATION 2 puff Q12HRT KRISTEN Administration Sodium Chloride 10 ml 12/05/24 14:00 12/10/24 05:36 Central Line Flush IV PUSH 10 ml Q8HR KRISTEN Administration Sodium Chloride 10 ml 12/05/24 11:12 Central Line Flush IV PUSH PRN PRN with TPN bag changes Sodium Chloride 20 ml 12/05/24 11:12 12/10/24 05:36 Central Line Flush IV PUSH 20 ml PRN PRN Administration after blood draws Radiology Results: ITS Impressions Renal Ultrasound 12/05/24 15:17 IMPRESSION: No hydronephrosis or renal calculi. Findings suggesting medical renal disease. Chest CT 12/05/24 15:24 IMPRESSION: Findings consistent with pulmonary edema with a small right-sided pleural effusion. Additional findings worrisome for pulmonary hypertension, as detailed above. Trace anasarca. Intra-abdominal ascites Venous Doppler Study 12/05/24 16:06 IMPRESSION: Negative bilateral lower extremity venous US. No deep vein thrombosis. Chest X-Ray 12/10/24 08:31 IMPRESSION: Cardiomegaly with cardiac decompensation and pulmonary edema. Superimposed pneumonia cannot be excluded. Labs Labs: Laboratory Results - last 24 hr 12/06/24 12/10/24 04:38 04:12 WBC 5.1 RBC 3.77 L Hgb 10.8 L Hct 34.3 L MCV 91.0 MCH 28.6 MCHC 31.5 L RDW 17.0 H Plt Count 75 L MPV 9.4 Sodium 128 L Potassium 4.3 Chloride 91 L Carbon Dioxide 23 Anion Gap 14 H BUN 48 H Creatinine 2.25 H Estim Creat Clear Calc 28 Estimated GFR 22 L Glucose 123 H Calcium 9.8 Phosphorus 3.1 Magnesium 2.1 Total Bilirubin 4.1 H AST 94 H ALT 118 H Alkaline Phosphatase 72 Total Protein 7.2 Albumin 3.1 L 4.5 Brfgs-8-Yurudcfkz 0.4 H Mghcr-6-Lrjfldhtq 0.6 Qssh-0-Tgilwnhj 0.4 Mbaq-5-Lchqaiqb 0.3 Gamma Globulins 1.5 Abnorm Protein Band 1 0.2 H PEP Interpretation See note [place]/Lambda Ratio 1.22 Free [place] Light Chains 72.6 H Free [place] Light Chain 59.7 H
--- NOTE | 2024-12-10 13:46 | WPDINTPN ---
Progress Note: A&P Assessment and Plan (1) Shortness of breath: Code(s): R06.02 - Shortness of breath Status: Acute Assessment and Plan: Patient presented with shortness of breath without history of fever and dry cough Likely secondary to congestive heart failure, cardiogenic shock and presented with AFib with RVR. She remains on 2 L nasal cannula with which she takes at home She does not appear in any respiratory distress. Exam as above Chest x-ray this morning shows pulmonary edema She has normal WBC and is afebrile. She was started on empiric antibiotics. But her procalcitonin level was low and CT scan did not show any infiltrates or findings suggestive of pneumonia. Antibiotics discontinued Will switch Lasix b.i.d. to Bumex infusion increase dobutamine, discussed with Cardiology (2) Acute exacerbation of CHF (congestive heart failure): Code(s): I50.9 - Heart failure, unspecified Status: Acute Assessment and Plan: Patient has history of congestive heart failure. Echo in 2020 showed EF 20-25% she had a recent echocardiogram which showed 10% EF. Echo on this hospitalization ordered and pending. She had a negative cardiac catheterization as per Cardiology records Cardiology following 12/05/2024: Echocardiogram Summary 1. Four-chamber dilated cardiomyopathy. 2. Profound left and right ventricular systolic dysfunction ejection fraction 10-15%. 3. Mild MR resulting from annular dilation. 4. At least moderate pulmonary hypertension based on tricuspid regurgitant velocity After discussion with Cardiology patient was started on dobutamine for post to inotropic effect to allow diuresis in light of kidney injury Continue dobutamine and Lasix and albumin (3) Non-ST elevation [place] (NSTEMI): Code(s): I21.4 - Non-ST elevation (NSTEMI) myocardial infarction Status: Acute Assessment and Plan: Mild elevation in troponin with no chest pain. EKG reviewed Patient presented with AFib with RVR As per Cardiology, patient had a cardiac catheterization in recent past which was negative any coronary disease Patient has not been on anticoagulation as an outpatient due to history of frequent and significant nose bleeds. Patient was started on heparin drip for AFib with RVR and closely monitor which was switched to Eliquis -Eliquis currently on hold due to low platelets Continue statin Not on beta-saba Rian or ARB due to low blood pressure and elevated creatinine (4) Pneumonia: Code(s): J18.9 - Pneumonia, unspecified organism Status: Acute Assessment and Plan: See above (5) Hyperlipidemia: Code(s): E78.5 - Hyperlipidemia, unspecified Status: Acute Assessment and Plan: Continue atorvastatin (6) Elevated serum creatinine: Code(s): R79.89 - Other specified abnormal findings of blood chemistry Status: Acute Assessment and Plan: Last recorded creatinine was 1.5 in 2022 presented with creatinine of 2.66. Two weeks ago creatinine was 2.18 I suspect patient has chronic kidney disease and may have acute kidney injury, likely low-flow States from cardiogenic shock and acute on chronic heart failure, Renal ultrasound showed medical renal disease CK minimally elevated Betts and accurate I&Os Nephrology evaluated the patient and following will defer further workup for renal failure to Nephrology Started on Bumex infusion, continue albumin Creatinine worsened to 2.25 this morning Monitor urine output electrolytes and creatinine (7) Lower extremity edema: Code(s): R60.0 - Localized edema Status: Acute Assessment and Plan: Likely secondary to congestive heart failure and kidney dysfunction Diuresis as above Lower extremity Dopplers negative for DVT (8) Atrial fibrillation with RVR: Code(s): I48.91 - Unspecified atrial fibrillation Status: Acute Assessment and Plan: Presented with AFib with RVR. Not on any antiplatelet or anticoagulation as an outpatient Patient was started on amiodarone infusion at the time of admission as patient blood pressure was low for rate control Echo ordered and reviewed Patient does not take aspirin due to history of allergy. Patient states that she used to be on Eliquis in the past but it was discontinued due to frequent severe nosebleed Discussed with chronic disease manager and she recommends starting anticoagulation. I spoke to patient and discussed risks and benefits. W -status post control infusion, was started on Eliquis which is currently on hold due to thrombocytopenia Amiodarone infusion was discontinued as patient has converted to sinus rhythm. Patient now on p.o. amiodarone per Cardiology Patient continues to be in sinus rhythm with PACs. Monitor (9) Cardiogenic shock: Code(s): R57.0 - Cardiogenic shock Status: Acute Assessment and Plan: Continue dobutaminefor ionotropic support. Levophed weaned off The patient's cortisol level was low hence started on hydrocortisone stress dose -weaning steroids as off pressors (10) Electrolyte abnormality: Code(s): E87.8 - Other disorders of electrolyte and fluid balance, not elsewhere classified Status: Acute Assessment and Plan: Potassium improved after replacement (11) Hypothyroidism: Code(s): E03.9 - Hypothyroidism, unspecified Status: Acute Assessment and Plan: High TSH with low T3 Continue levothyroxine Plan DVT prophylaxis -SCDs, no chemoprophylaxis due to thrombocytopenia Stress ulcer prophylaxis: Protonix Nutrition -heart healthy diet Code Status -patient wishes to be DNR/DNI she does not want to go on a ventilator or receive CPR in the event of cardiac arrest. She states she does not have any family member in town. She is single and has been estranged from her children. Most of her relatives live in [place] Increased dobutamine, start Bumex infusion, discussed with Cardiology and they were fine with it. Total Critical Care Time - 35 minutes Due to a high probability of clinically significant, life threatening deterioration, the patient required my highest level of preparedness to intervene emergently and I personally spent this critical care time directly and personally managing the patient. This critical care time included obtaining a history; examining the patient; pulse oximetry; ordering and review of studies; arranging urgent treatment with development of a management plan; evaluation of patient's response to treatment; frequent reassessment; and discussions with other providers. It was exclusive of separately billable procedures and treating other patients and teaching time. Please see Assessment and Plan section and the rest of the note for further information on patient assessment and treatment Subjective Date/time seen: 12/10/24 13:46 Interval history: Reason for consult: Cardiogenic shock, acute on chronic systolic heart failure, atrial fibrillation with RVR, acute renal failure likely low flow state 12/10/2024: Patient seen and examined the ICU, remains on dobutamine at 2.5 mcg/kg/min, urine output has been low despite being on Lasix b.i.d.. Patient denies any chest pain, does complain of some shortness of breath with exertion, denies any nausea vomiting or abdominal pain. Blood pressures have remained stable, off vasopressors Review of Systems Review of Systems: All systems reviewed & are unremarkable except as noted in HPI and below (HPI) Exam Narrative: General: Pt is alert awake and in NAD Lungs/Chest: Trachea central Clear BS B/L, few crackles at the bases right more than left. No respiratory distress, no use of accessory muscles, no significant wheezing Cardiac: Currently in sinus rhythm, rate controlled, S1-S2 is normal Circulation: Pedal pulses are intact and symmetrical. Abdomen: Normal bowel sounds.. Soft. NT. ND. Extremities: Bilateral lower extremity pitting edema present :. Betts catheter in place Neurologic: Follows commands. Moves all 4 extremities PERRL AO x3 Skin: Intertrigo in the inguinal folds Objective Data Vital Signs Vital Signs: Vital Signs - 24 hr 12/09/24 13:57 12/09/24 13:57 12/09/24 14:00 Temperature Pulse Rate 91 91 86 Respiratory Rate Blood Pressure 100/49 L 100/49 L Pulse Oximetry Oxygen Delivery Oxygen Flow Rate Fraction of Inspired Oxygen 12/09/24 14:00 12/09/24 16:00 12/09/24 16:00 Temperature Pulse Rate 84 85 85 Respiratory Rate 27 H 22 H Blood Pressure 101/61 Pulse Oximetry 95 93 Oxygen Delivery Nasal Cannula Oxygen Flow Rate 2 Fraction of Inspired Oxygen 28 12/09/24 16:00 12/09/24 17:50 12/09/24 18:00 Temperature 97.6 F Pulse Rate 85 83 Respiratory Rate 22 H Blood Pressure 89/62 L 95/53 L Pulse Oximetry 93 Oxygen Delivery Oxygen Flow Rate Fraction of Inspired Oxygen 12/09/24 18:00 12/09/24 19:00 12/09/24 20:00 Temperature 97.6 F Pulse Rate 84 84 Respiratory Rate 22 H Blood Pressure 92/56 L 91/52 L Pulse Oximetry 98 95 Oxygen Delivery Nasal Cannula Oxygen Flow Rate 2 Fraction of Inspired Oxygen 12/09/24 20:00 12/09/24 20:00 12/09/24 20:00 Temperature 97.8 F Pulse Rate 91 90 90 Respiratory Rate 19 Blood Pressure 91/61 L 91/61 L Pulse Oximetry 95 Oxygen Delivery Oxygen Flow Rate Fraction of Inspired Oxygen 12/09/24 20:09 12/09/24 20:09 12/09/24 21:08 Temperature Pulse Rate 84 84 82 Respiratory Rate 20 20 13 Blood Pressure Pulse Oximetry 99 Oxygen Delivery Nasal Cannula Oxygen Flow Rate 2 Fraction of Inspired Oxygen 12/09/24 21:20 12/09/24 22:00 12/09/24 22:00 Temperature 97.5 F L Pulse Rate 82 84 84 Respiratory Rate 13 29 H Blood Pressure 90/54 L Pulse Oximetry 92 Oxygen Delivery Oxygen Flow Rate Fraction of Inspired Oxygen 12/09/24 22:00 12/10/24 00:00 12/10/24 00:00 Temperature Pulse Rate 81 87 Respiratory Rate Blood Pressure 90/54 L Pulse Oximetry 94 Oxygen Delivery Nasal Cannula Oxygen Flow Rate 2 Fraction of Inspired Oxygen 12/10/24 00:00 12/10/24 00:02 12/10/24 02:00 Temperature 97.1 F L Pulse Rate 90 90 79 Respiratory Rate 17 Blood Pressure 85/56 L 85/56 L Pulse Oximetry 94 Oxygen Delivery Oxygen Flow Rate Fraction of Inspired Oxygen 12/10/24 02:00 12/10/24 02:00 12/10/24 04:00 Temperature 97.1 F L Pulse Rate 84 84 78 Respiratory Rate 19 Blood Pressure 99/54 L 99/54 L 90/59 L Pulse Oximetry 95 Oxygen Delivery Oxygen Flow Rate Fraction of Inspired Oxygen 12/10/24 04:00 12/10/24 04:00 12/10/24 04:00 Temperature Pulse Rate 78 80 Respiratory Rate Blood Pressure 90/59 L Pulse Oximetry 94 Oxygen Delivery Nasal Cannula Oxygen Flow Rate 2 Fraction of Inspired Oxygen 12/10/24 04:00 12/10/24 06:00 12/10/24 06:00 Temperature 97 F L 96.9 F L Pulse Rate 79 81 84 Respiratory Rate 23 H 24 H Blood Pressure 90/59 L 104/85 Pulse Oximetry 98 97 Oxygen Delivery Oxygen Flow Rate Fraction of Inspired Oxygen 12/10/24 06:00 12/10/24 08:00 12/10/24 08:00 Temperature 97.3 F L Pulse Rate 84 83 83 Respiratory Rate 24 H Blood Pressure 104/85 101/72 101/72 Pulse Oximetry 100 Oxygen Delivery Oxygen Flow Rate Fraction of Inspired Oxygen 12/10/24 08:00 12/10/24 08:00 12/10/24 08:48 Temperature Pulse Rate 81 79 Respiratory Rate 20 Blood Pressure Pulse Oximetry 95 100 Oxygen Delivery Nasal Cannula Nasal Cannula Oxygen Flow Rate 2 2 Fraction of Inspired Oxygen 12/10/24 08:48 12/10/24 08:53 12/10/24 08:54 Temperature Pulse Rate 79 79 Respiratory Rate 20 Blood Pressure 106/66 Pulse Oximetry Oxygen Delivery Oxygen Flow Rate Fraction of Inspired Oxygen 12/10/24 08:55 12/10/24 10:00 12/10/24 10:00 Temperature 97.5 F L Pulse Rate 78 83 78 Respiratory Rate 28 H Blood Pressure 106/66 111/63 111/63 Pulse Oximetry 99 Oxygen Delivery Oxygen Flow Rate Fraction of Inspired Oxygen 12/10/24 10:00 12/10/24 10:00 12/10/24 12:00 Temperature Pulse Rate 80 Respiratory Rate Blood Pressure 111/63 Pulse Oximetry 95 Oxygen Delivery Nasal Cannula Oxygen Flow Rate 2 Fraction of Inspired Oxygen 12/10/24 12:00 12/10/24 12:12 12/10/24 12:53 Temperature 97.4 F L Pulse Rate 77 90 Respiratory Rate 28 H Blood Pressure 119/63 107/66 Pulse Oximetry 98 Oxygen Delivery Oxygen Flow Rate Fraction of Inspired Oxygen Intake/Output Intake/Output: Intake & Output 12/07/24 12/08/24 12/09/24 12/10/24 23:59 23:59 23:59 23:59 Intake Total 2418.5 2279.6 2409.2 949.3 Output Total 2400 1400 925 125 Balance 18.5 879.6 1484.2 824.3 Meds/Results Medications: Active Medications Generic Name Dose Route Start Last Admin Trade Name Freq PRN Reason Stop Dose Admin Acetaminophen 650 mg 12/04/24 22:10 Acetaminophen 325 Mg Tablet PO Q4H PRN Mild Pain (1-3) or Fever Hydrocodone Bitart/Acetaminophen 1 tab 12/05/24 01:36 12/09/24 20:20 Hydrocodone/Acetaminophen (*Crx) 5-325 Mg Tablet PO 1 tab Q8H PRN Administration pain 7-10 Albuterol/Ipratropium 3 ml 12/06/24 08:00 12/09/24 21:08 Ipratropium 0.5 Mg/Albuterol Sulfate 2.5 Mg Ampul.Neb 3 Ml INHALATION 3 ml Q6HRT PRN Administration wheezine Amiodarone HCl 400 mg 12/07/24 09:15 12/10/24 08:54 Amiodarone Hcl 200 Mg Tablet PO 400 mg DAILY@0800 KRISTEN Administration Apixaban 5 mg 12/09/24 21:00 12/09/24 20:20 Apixaban 5 Mg Tablet PO 5 mg Q12HR KRISTEN Administration Atorvastatin Calcium 20 mg 12/05/24 09:00 12/10/24 08:54 Atorvastatin 20 Mg Tablet PO 20 mg DAILY KRISTEN Administration Docusate Sodium 100 mg 12/10/24 09:00 12/10/24 08:54 Docusate Sodium 100 Mg Capsule PO 100 mg Q12HR KRISTEN Administration Hydrocortisone Sodium Succinate 50 mg 12/10/24 18:00 Hydrocortisone Sodium Succinate 100 Mg/2 Ml Vial IV PUSH 12/14/24 17:59 Q12H KRISTEN Dobutamine HCl/Dextrose 250 mg in 250 mls @ 22.725 mls/hr 12/06/24 07:55 12/10/24 10:00 Dobutamine 250 Mg/D5w 250 Ml IV CONT 3.75 mcg/kg/min .Q11H1M KRISTEN 22.73 mls/hr Infusion 3.75 MCG/KG/MIN Albumin Human 100 mls @ 60 mls/hr 12/06/24 09:00 12/10/24 08:54 Albutein IVPB 60 mls/hr BID KRISTEN Administration Bumetanide 12 mg/ Sodium 100 mls @ 4.167 mls/hr 12/10/24 11:30 12/10/24 12:53 Chloride IV CONT 1 mg/hr .Q24H KRISTEN 8.33 mls/hr Administration 0.5 MG/HR Levothyroxine Sodium 50 mcg 12/08/24 08:15 12/10/24 05:34 Levothyroxine Sodium 50 Mcg Tablet PO 50 mcg DAILY@0630 KRISTEN Administration Polyethylene Glycol 17 gm 12/10/24 09:00 12/10/24 08:54 Polyethylene Glycol 3350 17 Gm Powd.Pack PO 17 gm QAM KRISTEN Administration Fluticasone/Salmeterol 2 puff 12/05/24 08:00 12/10/24 08:48 Fluticasone/Salmeterol 115-21 Mcg Inhaler 1 Puff INHALATION 2 puff Q12HRT KRISTEN Administration Sodium Chloride 10 ml 12/05/24 14:00 12/10/24 05:36 Central Line Flush IV PUSH 10 ml Q8HR KRISTEN Administration Sodium Chloride 10 ml 12/05/24 11:12 Central Line Flush IV PUSH PRN PRN with TPN bag changes Sodium Chloride 20 ml 12/05/24 11:12 12/10/24 05:36 Central Line Flush IV PUSH 20 ml PRN PRN Administration after blood draws Radiology Results: ITS Impressions Renal Ultrasound 12/05/24 15:17 IMPRESSION: No hydronephrosis or renal calculi. Findings suggesting medical renal disease. Chest CT 12/05/24 15:24 IMPRESSION: Findings consistent with pulmonary edema with a small right-sided pleural effusion. Additional findings worrisome for pulmonary hypertension, as detailed above. Trace anasarca. Intra-abdominal ascites Venous Doppler Study 12/05/24 16:06 IMPRESSION: Negative bilateral lower extremity venous US. No deep vein thrombosis. Chest X-Ray 12/10/24 08:31 IMPRESSION: Cardiomegaly with cardiac decompensation and pulmonary edema. Superimposed pneumonia cannot be excluded. Labs Labs: Laboratory Results - last 24 hr 12/06/24 12/10/24 04:38 04:12 WBC 5.1 RBC 3.77 L Hgb 10.8 L Hct 34.3 L MCV 91.0 MCH 28.6 MCHC 31.5 L RDW 17.0 H Plt Count 75 L MPV 9.4 Sodium 128 L Potassium 4.3 Chloride 91 L Carbon Dioxide 23 Anion Gap 14 H BUN 48 H Creatinine 2.25 H Estim Creat Clear Calc 28 Estimated GFR 22 L Glucose 123 H Calcium 9.8 Phosphorus 3.1 Magnesium 2.1 Total Bilirubin 4.1 H AST 94 H ALT 118 H Alkaline Phosphatase 72 Total Protein 7.2 Albumin 3.1 L 4.5 Eaall-6-Oyougdxru 0.4 H Jjowb-9-Enpuhplfy 0.6 Bbis-2-Qwsabwnr 0.4 Byeo-5-Qknkguva 0.3 Gamma Globulins 1.5 Abnorm Protein Band 1 0.2 H PEP Interpretation See note Quality VTE Prophylaxis VTE prophylaxis: pharmacologic ordered
[2024-12-10] MEDS: DOBUTamine 250 MG/D5W 250 ML 250 MG/250 ML BAG 30.3 MG IV CONT (16:03)
[2024-12-10] MEDS: HYDROCORTISONE SODIUM SUCCINATE 100 MG/2 ML VIAL 50 MG IV PUSH (18:23)
[2024-12-10] MEDS: PANTOPRAZOLE SODIUM IV 40 MG VIAL IV PUSH (20:31)
[2024-12-10] MEDS: MAG HYDROX/AL HYDROX/SIMETH 30 ML UDC PO (22:13)
[2024-12-11] VITALS (23 sets, daily range): BP systolic 104–117; BP diastolic 50–75; PULSE 77–88; RESP 17–32; TEMP 36.1–36.6; O2SAT 92–100; BMI 44.3
[2024-12-11] MEDS: HYDROcodone/acetaminophen (*CRX) 5-325 MG TABLET 1 TAB PO (00:25)
[2024-12-11] MEDS: DOBUTamine 250 MG/D5W 250 ML 250 MG/250 ML BAG 30.3 MG IV CONT ×2 (00:26→09:04)
[2024-12-11 04:30] LABS: Hematocrit 34.2 % (37.0-47.0); Hemoglobin 10.6 g/dL (12.0-15.0); Immature Granulocyte Absolute 0.05 K/mm3 (0.00-0.031); Immature Granulocyte Percent A 0.8 % (0-0.5); Immature Platelet Fraction Pct 2.8 % (0.9-11.2); Lymphocytes Absolute Auto 0.45 K/mm3 (0.9-3.2); Lymphocytes Percent Auto 7.6 % (18.3-44.2); Mean Corpuscular Hemoglobin 28.3 pg (26-34); Mean Corpuscular Volume 91.4 fl (80-100); Mean Platelet Volume 8.7 fl (7.4-10.4); Monocytes Absolute Auto 0.5 K/mm3 (0.1-0.6); Monocytes Percent Auto 7.9 % (2.6-8.5); Neutrophils Percent Auto 83.7 % (45.5-73.1); Platelet Count Result 81 k/mm3 (150-375); Red Blood Count 3.74 M/mm3 (4.2-5.4); Red Cell Distribution Width 16.9 % (11.5-14.5)
[2024-12-11] MEDS: CENTRAL LINE FLUSH 10 ML IV PUSH ×3 (04:46→20:38)
[2024-12-11 04:52] LABS: Alanine Aminotransferase 91 U/L (6-35); Albumin Level 4.8 g/dL (3.5-5.1); Alkaline Phosphatase 67 U/L (38-126); Anion Gap 15 mmol/L (4-12); Aspartate Amino Transferase 61 U/L (14-36); Bilirubin,Total 4.1 mg/dL (0.2-1.3); Blood Urea Nitrogen 55 mg/dL (7-17); Calcium 10.1 mg/dL (8.4-10.2); Carbon Dioxide 22 mmol/L (22-30); Chloride 91 mmol/L (98-107); Estimated CRCL calculation 25 ml/min; Estimated Glomerular Filt Rate 20; Glucose 95 mg/dL (65-110); Magnesium 2.3 mg/dL (1.6-2.3); Phosphorus 3.4 mg/dL (2.5-4.5); Potassium 4.6 mmol/L (3.4-5.0); Sodium 128 mmol/L (137-145); Total Protein 7.5 g/dL (6.3-8.2)
[2024-12-11] MEDS: HYDROCORTISONE SODIUM SUCCINATE 100 MG/2 ML VIAL 50 MG IV PUSH ×2 (06:21→17:56)
[2024-12-11] MEDS: LEVOTHYROXINE SODIUM 50 MCG TABLET PO (06:21)
[2024-12-11] MEDS: FLUTICASONE/SALMETEROL 115-21 MCG INHALER 1 PUFF 2 PUFF INHALATION (08:43)
[2024-12-11] MEDS: AMIODARONE HCL 200 MG TABLET 400 MG PO (09:08)
[2024-12-11] MEDS: ATORVASTATIN 20 MG TABLET PO (09:08)
[2024-12-11] MEDS: PANTOPRAZOLE SODIUM IV 40 MG VIAL IV PUSH ×2 (09:09→20:28)
[2024-12-11] MEDS: ALBUMIN HUMAN 25% 25 GM/100 ML 100 ML IVPB ×2 (09:09→20:28)
[2024-12-11] MEDS: polyethylene glycoL 3350 17 GM POWD.PACK PO (10:27)
[2024-12-11] MEDS: DOCUSATE SODIUM 100 MG CAPSULE PO ×2 (10:27→20:28)
--- NOTE | 2024-12-11 12:20 | WPDINTPN ---
Progress Note: A&P Assessment and Plan (1) Shortness of breath: Code(s): R06.02 - Shortness of breath Status: Acute Assessment and Plan: Patient presented with shortness of breath without history of fever and dry cough Likely secondary to congestive heart failure, cardiogenic shock and presented with AFib with RVR. She remains on 2 L nasal cannula with which she takes at home She does not appear in any respiratory distress. Exam as above Chest x-ray this morning shows pulmonary edema She has normal WBC and is afebrile. She was started on empiric antibiotics. But her procalcitonin level was low and CT scan did not show any infiltrates or findings suggestive of pneumonia. Antibiotics discontinued Discussed with Cardiology, will switch to Bumex q.12 hours and stop Bumex infusion. (2) Acute exacerbation of CHF (congestive heart failure): Code(s): I50.9 - Heart failure, unspecified Status: Acute Assessment and Plan: Patient has history of congestive heart failure. Echo in 2020 showed EF 20-25% she had a recent echocardiogram which showed 10-15% EF. . She had a negative cardiac catheterization as per Cardiology records Cardiology following Will continue diuresis and dobutamine per Cardiology 12/05/2024: Echocardiogram Summary 1. Four-chamber dilated cardiomyopathy. 2. Profound left and right ventricular systolic dysfunction ejection fraction 10-15%. 3. Mild MR resulting from annular dilation. 4. At least moderate pulmonary hypertension based on tricuspid regurgitant velocity After discussion with Cardiology patient was started on dobutamine for post to inotropic effect to allow diuresis in light of kidney injury Continue dobutamine and Lasix and albumin (3) Non-ST elevation DC (NSTEMI): Code(s): I21.4 - Non-ST elevation (NSTEMI) myocardial infarction Status: Acute Assessment and Plan: Mild elevation in troponin with no chest pain. EKG reviewed Patient presented with AFib with RVR As per Cardiology, patient had a cardiac catheterization in recent past which was negative any coronary disease Patient has not been on anticoagulation as an outpatient due to history of frequent and significant nose bleeds. Patient was started on heparin drip for AFib with RVR and closely monitor which was switched to Eliquis -Eliquis currently on hold due to low platelets Continue statin Not on beta-saba Rian or ARB due to low blood pressure and elevated creatinine (4) Pneumonia: Code(s): J18.9 - Pneumonia, unspecified organism Status: Acute Assessment and Plan: See above (5) Hyperlipidemia: Code(s): E78.5 - Hyperlipidemia, unspecified Status: Acute Assessment and Plan: Continue atorvastatin (6) Elevated serum creatinine: Code(s): R79.89 - Other specified abnormal findings of blood chemistry Status: Acute Assessment and Plan: Last recorded creatinine was 1.5 in 2022 presented with creatinine of 2.66. Two weeks ago creatinine was 2.18 I suspect patient has chronic kidney disease and may have acute kidney injury, likely low-flow States from cardiogenic shock and acute on chronic heart failure, Renal ultrasound showed medical renal disease CK minimally elevated Betts and accurate I&Os Nephrology evaluated the patient and following will defer further workup for renal failure to Nephrology Started on Bumex infusion, continue albumin Creatinine worsened to 2.25 this morning Monitor urine output electrolytes and creatinine (7) Lower extremity edema: Code(s): R60.0 - Localized edema Status: Acute Assessment and Plan: Likely secondary to congestive heart failure and kidney dysfunction Diuresis as above Lower extremity Dopplers negative for DVT (8) Atrial fibrillation with RVR: Code(s): I48.91 - Unspecified atrial fibrillation Status: Acute Assessment and Plan: Presented with AFib with RVR. Not on any antiplatelet or anticoagulation as an outpatient Patient was started on amiodarone infusion at the time of admission as patient blood pressure was low for rate control Echo ordered and reviewed Patient does not take aspirin due to history of allergy. Patient states that she used to be on Eliquis in the past but it was discontinued due to frequent severe nosebleed Discussed with driver/merchandiser and she recommends starting anticoagulation. I spoke to patient and discussed risks and benefits. W -status post control infusion, was started on Eliquis which is currently on hold due to thrombocytopenia Amiodarone infusion was discontinued as patient has converted to sinus rhythm. Patient now on p.o. amiodarone per Cardiology Patient continues to be in sinus rhythm with PACs. Monitor (9) Cardiogenic shock: Code(s): R57.0 - Cardiogenic shock Status: Acute Assessment and Plan: Continue dobutaminefor ionotropic support. Levophed weaned off The patient's cortisol level was low hence started on hydrocortisone stress dose -weaning steroids as off pressors (10) Electrolyte abnormality: Code(s): E87.8 - Other disorders of electrolyte and fluid balance, not elsewhere classified Status: Acute Assessment and Plan: Potassium improved after replacement (11) Hypothyroidism: Code(s): E03.9 - Hypothyroidism, unspecified Status: Acute Assessment and Plan: High TSH with low T3 Continue levothyroxine Plan DVT prophylaxis -SCDs, no chemoprophylaxis due to thrombocytopenia Stress ulcer prophylaxis: Protonix Nutrition -heart healthy diet Code Status -patient wishes to be DNR/DNI she does not want to go on a ventilator or receive CPR in the event of cardiac arrest. She states she does not have any family member in town. She is single and has been estranged from her children. Most of her relatives live in [place] Discussed with Cardiology, increased dobutamine and placed patient on Bumex q.12 hours, will turn off Bumex infusion. Total Critical Care Time - 33 minutes Due to a high probability of clinically significant, life threatening deterioration, the patient required my highest level of preparedness to intervene emergently and I personally spent this critical care time directly and personally managing the patient. This critical care time included obtaining a history; examining the patient; pulse oximetry; ordering and review of studies; arranging urgent treatment with development of a management plan; evaluation of patient's response to treatment; frequent reassessment; and discussions with other providers. It was exclusive of separately billable procedures and treating other patients and teaching time. Please see Assessment and Plan section and the rest of the note for further information on patient assessment and treatment Subjective Date/time seen: 12/11/24 12:20 Interval history: Reason for consult: Cardiogenic shock, acute on chronic systolic heart failure, atrial fibrillation with RVR, acute renal failure likely low flow state 12/11/2024: Patient seen and examined the ICU, remains on dobutamine at 5 mcg/kg/min, urine output has been low despite being on Bumex drip. Patient denies any chest pain, does complain of some shortness of breath with exertion, denies any nausea vomiting or abdominal pain. Blood pressures have remained stable, off vasopressors Review of Systems Review of Systems: All systems reviewed & are unremarkable except as noted in HPI and below (HPI) Exam Narrative: General: Pt is alert awake and in NAD Lungs/Chest: Trachea central Clear BS B/L, few crackles at the bases right more than left. No respiratory distress, no use of accessory muscles, no significant wheezing Cardiac: Currently in sinus rhythm, rate controlled, S1-S2 is normal Circulation: Pedal pulses are intact and symmetrical. Abdomen: Normal bowel sounds.. Soft. NT. ND. Extremities: Bilateral lower extremity pitting edema present :. Betts catheter in place Neurologic: Follows commands. Moves all 4 extremities PERRL AO x3 Skin: Intertrigo in the inguinal folds Objective Data Vital Signs Vital Signs: Vital Signs - 24 hr 12/10/24 12:53 12/10/24 13:54 12/10/24 14:00 Temperature 97.3 F L Pulse Rate 79 83 Respiratory Rate 25 H Blood Pressure 107/66 113/62 110/70 Pulse Oximetry 100 Oxygen Delivery Oxygen Flow Rate Fraction of Inspired Oxygen 12/10/24 14:00 12/10/24 14:00 12/10/24 15:30 Temperature Pulse Rate 79 Respiratory Rate Blood Pressure 105/68 117/77 Pulse Oximetry Oxygen Delivery Oxygen Flow Rate Fraction of Inspired Oxygen 12/10/24 15:58 12/10/24 16:00 12/10/24 16:00 Temperature Pulse Rate 83 79 Respiratory Rate Blood Pressure 123/72 Pulse Oximetry 100 Oxygen Delivery Nasal Cannula Oxygen Flow Rate 2 Fraction of Inspired Oxygen 12/10/24 16:00 12/10/24 16:00 12/10/24 16:03 Temperature 97.1 F L Pulse Rate 83 84 Respiratory Rate 21 H Blood Pressure 123/72 123/72 123/72 Pulse Oximetry 100 Oxygen Delivery Oxygen Flow Rate Fraction of Inspired Oxygen 12/10/24 18:00 12/10/24 18:00 12/10/24 18:00 Temperature Pulse Rate 91 82 Respiratory Rate 20 Blood Pressure 109/64 111/68 109/64 Pulse Oximetry 100 Oxygen Delivery Oxygen Flow Rate Fraction of Inspired Oxygen 12/10/24 18:00 12/10/24 18:22 12/10/24 20:00 Temperature 97.5 F L Pulse Rate 82 83 Respiratory Rate 20 Blood Pressure 109/64 121/69 Pulse Oximetry 98 Oxygen Delivery Oxygen Flow Rate Fraction of Inspired Oxygen 12/10/24 20:00 12/10/24 20:00 12/10/24 20:00 Temperature Pulse Rate 90 91 Respiratory Rate Blood Pressure 119/73 119/73 Pulse Oximetry Oxygen Delivery Oxygen Flow Rate Fraction of Inspired Oxygen 12/10/24 20:00 12/10/24 20:03 12/10/24 20:05 Temperature Pulse Rate 82 90 Respiratory Rate 20 20 Blood Pressure Pulse Oximetry 96 100 Oxygen Delivery Nasal Cannula Oxygen Flow Rate 2 2 Fraction of Inspired Oxygen 12/10/24 22:00 12/10/24 22:00 12/10/24 22:00 Temperature Pulse Rate 80 80 Respiratory Rate 20 Blood Pressure 117/71 117/71 117/71 Pulse Oximetry 97 Oxygen Delivery Oxygen Flow Rate Fraction of Inspired Oxygen 12/10/24 23:48 12/11/24 00:00 12/11/24 00:00 Temperature 97.8 F Pulse Rate 78 81 Respiratory Rate 20 Blood Pressure 111/67 Pulse Oximetry 97 97 Oxygen Delivery Nasal Cannula Oxygen Flow Rate 2 Fraction of Inspired Oxygen 12/11/24 00:19 12/11/24 00:26 12/11/24 00:26 Temperature Pulse Rate 88 80 Respiratory Rate Blood Pressure 111/67 111/67 117/71 Pulse Oximetry Oxygen Delivery Oxygen Flow Rate Fraction of Inspired Oxygen 12/11/24 01:26 12/11/24 02:00 12/11/24 02:00 Temperature Pulse Rate 82 80 83 Respiratory Rate 20 20 Blood Pressure 107/50 L 107/50 L Pulse Oximetry 99 99 Oxygen Delivery Nasal Cannula Oxygen Flow Rate 2 Fraction of Inspired Oxygen 12/11/24 02:00 12/11/24 04:00 12/11/24 04:00 Temperature Pulse Rate 83 Respiratory Rate Blood Pressure 107/50 L Pulse Oximetry 100 Oxygen Delivery Nasal Cannula Oxygen Flow Rate 2 Fraction of Inspired Oxygen 12/11/24 04:00 12/11/24 04:00 12/11/24 04:00 Temperature 97.8 F Pulse Rate 83 84 Respiratory Rate 17 Blood Pressure 107/72 107/72 111/68 Pulse Oximetry 100 Oxygen Delivery Oxygen Flow Rate Fraction of Inspired Oxygen 12/11/24 05:41 12/11/24 06:00 12/11/24 06:00 Temperature Pulse Rate 82 82 82 Respiratory Rate 20 20 Blood Pressure 104/74 104/75 Pulse Oximetry 100 97 Oxygen Delivery Nasal Cannula Oxygen Flow Rate 2 Fraction of Inspired Oxygen 12/11/24 06:00 12/11/24 06:00 12/11/24 08:00 Temperature 97.0 F L Pulse Rate 84 80 Respiratory Rate 30 H Blood Pressure 104/74 116/62 Pulse Oximetry 92 Oxygen Delivery Oxygen Flow Rate Fraction of Inspired Oxygen 12/11/24 08:00 12/11/24 08:00 12/11/24 08:00 Temperature Pulse Rate 80 87 Respiratory Rate Blood Pressure 116/62 116/62 Pulse Oximetry Oxygen Delivery Oxygen Flow Rate Fraction of Inspired Oxygen 12/11/24 08:45 12/11/24 09:04 12/11/24 09:04 Temperature Pulse Rate 83 83 Respiratory Rate Blood Pressure 111/63 111/73 Pulse Oximetry 99 Oxygen Delivery Nasal Cannula Oxygen Flow Rate 2 Fraction of Inspired Oxygen 12/11/24 10:00 12/11/24 10:00 12/11/24 10:00 Temperature 97.2 F L Pulse Rate 79 82 Respiratory Rate 32 H Blood Pressure 108/71 108/71 Pulse Oximetry 100 Oxygen Delivery Oxygen Flow Rate Fraction of Inspired Oxygen 12/11/24 10:45 12/11/24 12:00 Temperature 97.2 F L Pulse Rate 80 84 Respiratory Rate 27 H Blood Pressure 113/69 113/71 Pulse Oximetry 100 Oxygen Delivery Oxygen Flow Rate Fraction of Inspired Oxygen Intake/Output Intake/Output: Intake & Output 12/08/24 12/09/24 12/10/24 12/11/24 23:59 23:59 23:59 23:59 Intake Total 2279.6 2409.2 2300.5 838.7 Output Total 1400 925 275 300 Balance 879.6 1484.2 2025.5 538.7 Meds/Results Medications: Active Medications Generic Name Dose Route Start Last Admin Trade Name Freq PRN Reason Stop Dose Admin Acetaminophen 650 mg 12/04/24 22:10 Acetaminophen 325 Mg Tablet PO Q4H PRN Mild Pain (1-3) or Fever Hydrocodone Bitart/Acetaminophen 1 tab 12/05/24 01:36 12/11/24 00:25 Hydrocodone/Acetaminophen (*Crx) 5-325 Mg Tablet PO 1 tab Q8H PRN Administration pain 7-10 Albuterol/Ipratropium 3 ml 12/06/24 08:00 12/09/24 21:08 Ipratropium 0.5 Mg/Albuterol Sulfate 2.5 Mg Ampul.Neb 3 Ml INHALATION 3 ml Q6HRT PRN Administration wheezine Amiodarone HCl 400 mg 12/07/24 09:15 12/11/24 09:08 Amiodarone Hcl 200 Mg Tablet PO 400 mg DAILY@0800 KRISTEN Administration Apixaban 5 mg 12/09/24 21:00 12/09/24 20:20 Apixaban 5 Mg Tablet PO 5 mg Q12HR KRISTEN Administration Atorvastatin Calcium 20 mg 12/05/24 09:00 12/11/24 09:08 Atorvastatin 20 Mg Tablet PO 20 mg DAILY KRISTEN Administration Docusate Sodium 100 mg 12/10/24 09:00 12/11/24 10:27 Docusate Sodium 100 Mg Capsule PO 100 mg Q12HR KRISTEN Administration Hydrocortisone Sodium Succinate 50 mg 12/10/24 18:00 12/11/24 06:21 Hydrocortisone Sodium Succinate 100 Mg/2 Ml Vial IV PUSH 12/14/24 17:59 50 mg Q12H KRISTEN Administration Dobutamine HCl/Dextrose 250 mg in 250 mls @ 45.45 mls/hr 12/06/24 07:55 12/11/24 10:45 Dobutamine 250 Mg/D5w 250 Ml IV CONT 5 mcg/kg/min .Q5H31M KRISTEN 30.3 mls/hr Infusion 7.5 MCG/KG/MIN Albumin Human 100 mls @ 60 mls/hr 12/06/24 09:00 12/11/24 10:50 Albutein IVPB Infused BID KRISTEN Infusion Levothyroxine Sodium 50 mcg 12/08/24 08:15 12/11/24 06:21 Levothyroxine Sodium 50 Mcg Tablet PO 50 mcg DAILY@0630 KRISTEN Administration Pantoprazole Sodium 40 mg 12/10/24 21:00 12/11/24 09:09 Pantoprazole Sodium Iv 40 Mg Vial IV PUSH 40 mg Q12HR KRISTEN Administration Polyethylene Glycol 17 gm 12/10/24 09:00 12/11/24 10:27 Polyethylene Glycol 3350 17 Gm Powd.Pack PO 17 gm QAM KRISTEN Administration Fluticasone/Salmeterol 2 puff 12/05/24 08:00 12/11/24 08:43 Fluticasone/Salmeterol 115-21 Mcg Inhaler 1 Puff INHALATION 2 puff Q12HRT KRISTEN Administration Sodium Chloride 10 ml 12/05/24 14:00 12/11/24 04:46 Central Line Flush IV PUSH 10 ml Q8HR KRISTEN Administration Sodium Chloride 10 ml 12/05/24 11:12 Central Line Flush IV PUSH PRN PRN with TPN bag changes Sodium Chloride 20 ml 12/05/24 11:12 12/10/24 05:36 Central Line Flush IV PUSH 20 ml PRN PRN Administration after blood draws Radiology Results: ITS Impressions Renal Ultrasound 12/05/24 15:17 IMPRESSION: No hydronephrosis or renal calculi. Findings suggesting medical renal disease. Chest CT 12/05/24 15:24 IMPRESSION: Findings consistent with pulmonary edema with a small right-sided pleural effusion. Additional findings worrisome for pulmonary hypertension, as detailed above. Trace anasarca. Intra-abdominal ascites Venous Doppler Study 12/05/24 16:06 IMPRESSION: Negative bilateral lower extremity venous US. No deep vein thrombosis. Chest X-Ray 12/11/24 05:39 Impression: Probable mild central pulmonary edema. Stable cardiomegaly with pacemaker device. Right-sided PICC line. Labs Labs: Laboratory Results - last 24 hr 12/11/24 04:18 WBC 6.0 RBC 3.74 L Hgb 10.6 L Hct 34.2 L MCV 91.4 MCH 28.3 MCHC 31.0 L RDW 16.9 H Plt Count 81 L MPV 8.7 Immature Gran % (Auto) 0.8 H Neut % (Auto) 83.7 H Lymph % (Auto) 7.6 L [place] % (Auto) 7.9 Eos % (Auto) 0.0 Baso % (Auto) 0.0 L Lymph # (Auto) 0.45 L [place] # (Auto) 0.5 Eos # (Auto) 0.0 Baso # (Auto) 0.0 Abs Immat Gran (auto) 0.05 H Absolute Neuts (auto) 5.0 Absolute Nucleated RBC 0.000 Nucleated RBC % 0.0 % Immature Plt Fraction 2.8 Sodium 128 L Potassium 4.6 Chloride 91 L Carbon Dioxide 22 Anion Gap 15 H BUN 55 H Creatinine 2.50 H Estim Creat Clear Calc 25 Estimated GFR 20 L Glucose 95 Calcium 10.1 Phosphorus 3.4 Magnesium 2.3 Total Bilirubin 4.1 H AST 61 H ALT 91 H Alkaline Phosphatase 67 Total Protein 7.5 Albumin 4.8 Quality VTE Prophylaxis VTE prophylaxis: pharmacologic ordered
[2024-12-11] MEDS: BUMETANIDE INJ 1 MG/4 ML VIAL 2 MG IV PUSH (12:35)
--- NOTE | 2024-12-11 12:41 | P.PNCA_ITS ---
Progress Note: A&P Assessment and Plan (1) CHF (congestive heart failure): Qualifiers: Heart failure type: unspecified Heart failure chronicity: acute Qualified Code(s): I50.9 - Heart failure, unspecified Code(s): I50.9 - Heart failure, unspecified Status: Acute (2) Atrial fibrillation with RVR: Code(s): I48.91 - Unspecified atrial fibrillation Status: Acute (3) Hyperlipidemia: Code(s): E78.5 - Hyperlipidemia, unspecified Status: Acute Plan 54-year-old woman with chronic systolic heart failure (LVEF 10-50% in 09/2024 worsened compared to 09/2023 which was 20-25%) status post dual-chamber ICD, paroxysmal atrial fibrillation (not on anticoagulation due to frequent nosebleeds and low atrial fibrillation burden on device checks), hypertension, hyperlipidemia, and history of VT was admitted for shortness of breath found to be in acute decompensated systolic heart failure Acute decompensated systolic heart failure -continue dobutamine drip -can decrease Bumex to 2 mg IV b.i.d. -will eventually add low-dose losartan at 25 mg p.o. daily -nephrology follow-up for acute renal injury -she lives at home by herself and uses rolling walker and given her social condition, as well as her morbid obesity she is not a candidate for transplant or LVAD at this time -she is indicated for Bi V ICD upgrade for which she can follow-up with Dr. Shaw who is her primary chain link fence installer/EP at [facility] -she did express that she needs a chain link fence installer closer to home and we will set her up to follow-up in our clinic here and determine if she should be referred to advance heart failure at [facility] Paroxysmal atrial fibrillation -continue amiodarone 400 mg p.o. daily for now and 200 mg p.o. daily at discharge History of ventricular tachycardia -status post ICD and would recommend Bi V upgrade given her worsening systolic heart failure in outpatient setting -continue amiodarone Hyperlipidemia -continue atorvastatin 20 mg every evening Subjective Date/time seen: 12/11/24 12:41 Interval history: States that her breathing is much better. No chest discomfort. States that she was going. Review of Systems Cardiovascular: Cardiovascular: Reports as per HPI Respiratory: Respiratory: Reports as per HPI Exam Const: Other: Ill-appearing HENMT: Mouth: Yes moist mucous membranes Eyes: EOM: EOMs intact bilaterally Neck: Neck: no JVD Resp: Effort & Inspection: normal respiratory effort Auscultation: rales Cardio: Rate: regular rate Rhythm: regular rhythm GI: GI Palp: Yes Soft to palpation Extrem: General: pedal edema Objective Data Vital Signs Vital Signs: Vital Signs - 24 hr 12/10/24 12:53 12/10/24 13:54 12/10/24 14:00 Temperature 36.3 C L Pulse Rate 79 83 Respiratory Rate 25 H Blood Pressure 107/66 113/62 110/70 Pulse Oximetry 100 Oxygen Delivery Oxygen Flow Rate Fraction of Inspired Oxygen 12/10/24 14:00 12/10/24 14:00 12/10/24 15:30 Temperature Pulse Rate 79 Respiratory Rate Blood Pressure 105/68 117/77 Pulse Oximetry Oxygen Delivery Oxygen Flow Rate Fraction of Inspired Oxygen 12/10/24 15:58 12/10/24 16:00 12/10/24 16:00 Temperature Pulse Rate 83 79 Respiratory Rate Blood Pressure 123/72 Pulse Oximetry 100 Oxygen Delivery Nasal Cannula Oxygen Flow Rate 2 Fraction of Inspired Oxygen 12/10/24 16:00 12/10/24 16:00 12/10/24 16:03 Temperature 36.2 C L Pulse Rate 83 84 Respiratory Rate 21 H Blood Pressure 123/72 123/72 123/72 Pulse Oximetry 100 Oxygen Delivery Oxygen Flow Rate Fraction of Inspired Oxygen 12/10/24 18:00 12/10/24 18:00 12/10/24 18:00 Temperature Pulse Rate 91 82 Respiratory Rate 20 Blood Pressure 109/64 111/68 109/64 Pulse Oximetry 100 Oxygen Delivery Oxygen Flow Rate Fraction of Inspired Oxygen 12/10/24 18:00 12/10/24 18:22 12/10/24 20:00 Temperature 36.4 C L Pulse Rate 82 83 Respiratory Rate 20 Blood Pressure 109/64 121/69 Pulse Oximetry 98 Oxygen Delivery Oxygen Flow Rate Fraction of Inspired Oxygen 12/10/24 20:00 12/10/24 20:00 12/10/24 20:00 Temperature Pulse Rate 90 91 Respiratory Rate Blood Pressure 119/73 119/73 Pulse Oximetry Oxygen Delivery Oxygen Flow Rate Fraction of Inspired Oxygen 12/10/24 20:00 12/10/24 20:03 12/10/24 20:05 Temperature Pulse Rate 82 90 Respiratory Rate 20 20 Blood Pressure Pulse Oximetry 96 100 Oxygen Delivery Nasal Cannula Oxygen Flow Rate 2 2 Fraction of Inspired Oxygen 28 12/10/24 22:00 12/10/24 22:00 12/10/24 22:00 Temperature Pulse Rate 80 80 Respiratory Rate 20 Blood Pressure 117/71 117/71 117/71 Pulse Oximetry 97 Oxygen Delivery Oxygen Flow Rate Fraction of Inspired Oxygen 12/10/24 23:48 12/11/24 00:00 12/11/24 00:00 Temperature 36.6 C Pulse Rate 78 81 Respiratory Rate 20 Blood Pressure 111/67 Pulse Oximetry 97 97 Oxygen Delivery Nasal Cannula Oxygen Flow Rate 2 Fraction of Inspired Oxygen 12/11/24 00:19 12/11/24 00:26 12/11/24 00:26 Temperature Pulse Rate 88 80 Respiratory Rate Blood Pressure 111/67 111/67 117/71 Pulse Oximetry Oxygen Delivery Oxygen Flow Rate Fraction of Inspired Oxygen 12/11/24 01:26 12/11/24 02:00 12/11/24 02:00 Temperature Pulse Rate 82 80 83 Respiratory Rate 20 20 Blood Pressure 107/50 L 107/50 L Pulse Oximetry 99 99 Oxygen Delivery Nasal Cannula Oxygen Flow Rate 2 Fraction of Inspired Oxygen 12/11/24 02:00 12/11/24 04:00 12/11/24 04:00 Temperature Pulse Rate 83 Respiratory Rate Blood Pressure 107/50 L Pulse Oximetry 100 Oxygen Delivery Nasal Cannula Oxygen Flow Rate 2 Fraction of Inspired Oxygen 12/11/24 04:00 12/11/24 04:00 12/11/24 04:00 Temperature 36.6 C Pulse Rate 83 84 Respiratory Rate 17 Blood Pressure 107/72 107/72 111/68 Pulse Oximetry 100 Oxygen Delivery Oxygen Flow Rate Fraction of Inspired Oxygen 12/11/24 05:41 12/11/24 06:00 12/11/24 06:00 Temperature Pulse Rate 82 82 82 Respiratory Rate 20 20 Blood Pressure 104/74 104/75 Pulse Oximetry 100 97 Oxygen Delivery Nasal Cannula Oxygen Flow Rate 2 Fraction of Inspired Oxygen 12/11/24 06:00 12/11/24 06:00 12/11/24 08:00 Temperature 36.1 C L Pulse Rate 84 80 Respiratory Rate 30 H Blood Pressure 104/74 116/62 Pulse Oximetry 92 Oxygen Delivery Oxygen Flow Rate Fraction of Inspired Oxygen 12/11/24 08:00 12/11/24 08:00 12/11/24 08:00 Temperature Pulse Rate 80 87 Respiratory Rate Blood Pressure 116/62 116/62 Pulse Oximetry Oxygen Delivery Oxygen Flow Rate Fraction of Inspired Oxygen 12/11/24 08:45 12/11/24 09:04 12/11/24 09:04 Temperature Pulse Rate 83 83 Respiratory Rate Blood Pressure 111/63 111/73 Pulse Oximetry 99 Oxygen Delivery Nasal Cannula Oxygen Flow Rate 2 Fraction of Inspired Oxygen 12/11/24 10:00 12/11/24 10:00 12/11/24 10:00 Temperature 36.2 C L Pulse Rate 79 82 Respiratory Rate 32 H Blood Pressure 108/71 108/71 Pulse Oximetry 100 Oxygen Delivery Oxygen Flow Rate Fraction of Inspired Oxygen 12/11/24 10:45 12/11/24 12:00 Temperature 36.2 C L Pulse Rate 80 84 Respiratory Rate 27 H Blood Pressure 113/69 113/71 Pulse Oximetry 100 Oxygen Delivery Oxygen Flow Rate Fraction of Inspired Oxygen Intake/Output Intake/Output: Intake & Output 12/08/24 12/09/24 12/10/24 12/11/24 23:59 23:59 23:59 23:59 Intake Total 2279.6 2409.2 2300.5 838.7 Output Total 1400 925 275 300 Balance 879.6 1484.2 2025.5 538.7 Meds/Results Medications: Active Medications Generic Name Dose Route Start Last Admin Trade Name Freq PRN Reason Stop Dose Admin Acetaminophen 650 mg 12/04/24 22:10 Acetaminophen 325 Mg Tablet PO Q4H PRN Mild Pain (1-3) or Fever Hydrocodone Bitart/Acetaminophen 1 tab 12/05/24 01:36 12/11/24 00:25 Hydrocodone/Acetaminophen (*Crx) 5-325 Mg Tablet PO 1 tab Q8H PRN Administration pain 7-10 Albuterol/Ipratropium 3 ml 12/06/24 08:00 12/09/24 21:08 Ipratropium 0.5 Mg/Albuterol Sulfate 2.5 Mg Ampul.Neb 3 Ml INHALATION 3 ml Q6HRT PRN Administration wheezine Amiodarone HCl 400 mg 12/07/24 09:15 12/11/24 09:08 Amiodarone Hcl 200 Mg Tablet PO 400 mg DAILY@0800 KRISTEN Administration Apixaban 5 mg 12/09/24 21:00 12/09/24 20:20 Apixaban 5 Mg Tablet PO 5 mg Q12HR KRISTEN Administration Atorvastatin Calcium 20 mg 12/05/24 09:00 12/11/24 09:08 Atorvastatin 20 Mg Tablet PO 20 mg DAILY KRISTEN Administration Bumetanide 2 mg 12/11/24 12:20 12/11/24 12:35 Bumetanide Inj 1 Mg/4 Ml Vial IV PUSH 12/12/24 00:21 2 mg Q12H KRISTEN Administration Docusate Sodium 100 mg 12/10/24 09:00 12/11/24 10:27 Docusate Sodium 100 Mg Capsule PO 100 mg Q12HR KRISTEN Administration Hydrocortisone Sodium Succinate 50 mg 12/10/24 18:00 12/11/24 06:21 Hydrocortisone Sodium Succinate 100 Mg/2 Ml Vial IV PUSH 12/12/24 06:01 50 mg Q12H KRISTEN Administration Dobutamine HCl/Dextrose 250 mg in 250 mls @ 45.45 mls/hr 12/06/24 07:55 12/11/24 10:45 Dobutamine 250 Mg/D5w 250 Ml IV CONT 5 mcg/kg/min .Q5H31M KRISTEN 30.3 mls/hr Infusion 7.5 MCG/KG/MIN Albumin Human 100 mls @ 60 mls/hr 12/06/24 09:00 12/11/24 10:50 Albutein IVPB Infused BID KRISTEN Infusion Levothyroxine Sodium 50 mcg 12/08/24 08:15 12/11/24 06:21 Levothyroxine Sodium 50 Mcg Tablet PO 50 mcg DAILY@0630 KRISTEN Administration Pantoprazole Sodium 40 mg 12/10/24 21:00 12/11/24 09:09 Pantoprazole Sodium Iv 40 Mg Vial IV PUSH 40 mg Q12HR KRISTEN Administration Polyethylene Glycol 17 gm 12/10/24 09:00 12/11/24 10:27 Polyethylene Glycol 3350 17 Gm Powd.Pack PO 17 gm QAM KRISTEN Administration Fluticasone/Salmeterol 2 puff 12/05/24 08:00 12/11/24 08:43 Fluticasone/Salmeterol 115-21 Mcg Inhaler 1 Puff INHALATION 2 puff Q12HRT KRISTEN Administration Sodium Chloride 10 ml 12/05/24 14:00 12/11/24 04:46 Central Line Flush IV PUSH 10 ml Q8HR KRISTEN Administration Sodium Chloride 10 ml 12/05/24 11:12 Central Line Flush IV PUSH PRN PRN with TPN bag changes Sodium Chloride 20 ml 12/05/24 11:12 12/10/24 05:36 Central Line Flush IV PUSH 20 ml PRN PRN Administration after blood draws Radiology Results: ITS Impressions Renal Ultrasound 12/05/24 15:17 IMPRESSION: No hydronephrosis or renal calculi. Findings suggesting medical renal disease. Chest CT 12/05/24 15:24 IMPRESSION: Findings consistent with pulmonary edema with a small right-sided pleural effusion. Additional findings worrisome for pulmonary hypertension, as detailed above. Trace anasarca. Intra-abdominal ascites Venous Doppler Study 12/05/24 16:06 IMPRESSION: Negative bilateral lower extremity venous US. No deep vein thrombosis. Chest X-Ray 12/11/24 05:39 Impression: Probable mild central pulmonary edema. Stable cardiomegaly with pacemaker device. Right-sided PICC line. Labs Labs: Laboratory Results - last 24 hr 12/11/24 04:18 WBC 6.0 RBC 3.74 L Hgb 10.6 L Hct 34.2 L MCV 91.4 MCH 28.3 MCHC 31.0 L RDW 16.9 H Plt Count 81 L MPV 8.7 Immature Gran % (Auto) 0.8 H Neut % (Auto) 83.7 H Lymph % (Auto) 7.6 L [place] % (Auto) 7.9 Eos % (Auto) 0.0 Baso % (Auto) 0.0 L Lymph # (Auto) 0.45 L [place] # (Auto) 0.5 Eos # (Auto) 0.0 Baso # (Auto) 0.0 Abs Immat Gran (auto) 0.05 H Absolute Neuts (auto) 5.0 Absolute Nucleated RBC 0.000 Nucleated RBC % 0.0 % Immature Plt Fraction 2.8 Sodium 128 L Potassium 4.6 Chloride 91 L Carbon Dioxide 22 Anion Gap 15 H BUN 55 H Creatinine 2.50 H Estim Creat Clear Calc 25 Estimated GFR 20 L Glucose 95 Calcium 10.1 Phosphorus 3.4 Magnesium 2.3 Total Bilirubin 4.1 H AST 61 H ALT 91 H Alkaline Phosphatase 67 Total Protein 7.5 Albumin 4.8
--- NOTE | 2024-12-11 14:00 | P.PNNP_ITS ---
Progress Note: A&P Assessment and Plan (1) Acute kidney injury: Code(s): N17.9 - Acute kidney failure, unspecified Status: Acute Assessment and Plan: * creatinine continues to fluctuate * as noted on admission - creatinine 2.66mg/dl * suspect multifactorial: * hemodynamic instability/hypotension * decompensated heart failure * use of ARB and diuretics prior to admission * Afib with RVR * infection -- less likely * other (?) * evaluation to date noted: * renal ultrasound with medical renal disease * urine electrolytes prerenal (indicative of depressed EF given volume overloaded state) * urine eosinophils negative * CPK mildly elevated (but not enough to affect kidney function) * moderate proteinuria (~ 900mg) * suspect due to cardiorenal syndrome worsened by hemodynamic instability/severe hypotension * she remains at risk for IP/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 * follow repeat labs and UOP (2) Stage 3b chronic kidney disease: Code(s): N18.32 - Chronic kidney disease, stage 3b Status: Acute Assessment and Plan: * creatinine running around 1.60 - 1.75mg/dl during September 2024 hospitalization at [facility] * earlier this month creatinine was noted to be 2.18mg/dl * creatinine in September 2023 was running 1.2 - 1.3mg/dl * suspect underlying CKD due cardiorenal syndrome given depressed EF/cardiomyopathy (3) Shortness of breath: Code(s): R06.02 - Shortness of breath Status: Acute Assessment and Plan: * due to several issues: * volume overload * acute on chronic CHF/cardiomyopathy * atrial fibrillation with RVR * possible pneumonia (less likely) * other (?) * no evidence of acute respiratory distress * on home oxygen requirements * CT of chest without infiltrates or pneumonia; evidence of pulmonary edema noted * antibiotics dc'd * continue attempts at diuresis * follow respiratory status (4) Acute on chronic systolic heart failure: Code(s): I50.23 - Acute on chronic systolic (congestive) heart failure Status: Acute Assessment and Plan: * as suggested by imaging, labs, and exam * Echo (09/27/24) at [facility] noted: * ejection fraction is visually estimated to be 10-15% * diastolic function E to E' ratio is >15 suggesting a high pulminary wedge pressure and LV diastolic dysfunction * no obvious thrombus noted * mildly dilated right and left atrium. * mild tricuspid regurgitation * estimated right ventricular systolic pressure is 33 mmHg * IVC is dilated * estimated RA pressure is 8 mmHg * normal cardiac catheterization noted (September 2024) * institution of GMDT was limited by hypotension during September 2024 hospitalization * Cardiology following * repeat Echo (12/05) reviewed: * four-chamber dilated cardiomyopathy * profound left and right ventricular systolic dysfunction ejection fraction 10-15% * mild MR resulting from annular dilation * mild aortic valve sclerosis * moderate to severe tricuspid valve regurgitation * moderate pulmonary hypertension, estimated pulmonary arterial systolic pressure is 57 mmHg * on dobutamine + IV diuretics along with IV albumin * however, not in negative fluid balance * CXR results noted (5) Hypotension: Code(s): I95.9 - Hypotension, unspecified Status: Acute Assessment and Plan: * as noted since admission * probably related to severity of her cardiomyopathy (cardiogenic shock) * remains on dobutamine gtt * weaned off levophed * give lowish cortisol, stress dose steroids added * wean as tolerated * follow trend of hemodynamics (6) Atrial fibrillation with RVR: Code(s): I48.91 - Unspecified atrial fibrillation Status: Acute Assessment and Plan: * noted again but rate controlled * off amiodarone gtt at this time * on oral amiodarone * repeat Echo noted (see #4) * Cardiology following * on anticoagulation (Eliquis) (7) Hyponatremia: Code(s): E87.1 - Hypo-osmolality and hyponatremia Status: Acute Assessment and Plan: * continues to fluctuate * presumably related to chronic CHF along with SANDRA/CKD and hypervolemia * sodium was running around 133 - 137 during September 2024 hospitalization at [facility] * evaluation noted: * TSH okay * cortisol on the lower end (but on steroids at this time) * urine electrolytes noted * SPEP with possible M-spike; UPEP pending * serum osmolality 288; urine osmolality 237 * serum/urine immunofixation pending * follow trend of repeat sodiums (8) Lower extremity edema: Code(s): R60.0 - Localized edema Status: Acute Assessment and Plan: * localized to her lower extremities * likely a manifestation of chronic CHF and current SANDRA on CKD * lower extremity dopplers negative * diuresis as tolerated * consider DARRYL-wraps/compression stocking and LE elevation Discussed case with Dr. Piña. Will continue to follow. L Subjective Date/time seen: 12/11/24 14:00 Interval history: Follow-up for acute kidney injury/acute renal failure on chronic kidney disease. Unfortunately, urine output has declined in the last 24 - 48 hours despite dobutamine infusion and bumex gtt; no acute distress but reports dyspnea on exertion with any movement or attempted physical therapy; relatively stable hemodynamics off vasopressor therapy; renal function/creatinine remains about the same. Exam 2 Narrative: General: WD/WN female in NAD Heart: normal S1 and S2; no rub Lungs: coarse with a few bibasilar crackles Abdomen: soft, nontender, nondistended, positive bowel sounds Extremities: no cyanosis or clubbing; 1 - 2+ edema Skin: no rash Objective Data Vital Signs Vital Signs: Vital Signs Temp Pulse Resp BP Pulse Ox O2 Del Method O2 Flow Rate 12/11/24 14:00 97.4 F L 81 21 H 116/73 98 12/11/24 12:00 84 113/71 12/11/24 12:00 87 12/11/24 12:00 97.2 F L 84 27 H 113/71 100 12/11/24 10:45 80 113/69 12/11/24 10:00 97.2 F L 82 32 H 108/71 100 12/11/24 10:00 79 12/11/24 10:00 108/71 12/11/24 09:04 83 111/73 12/11/24 09:04 83 111/63 12/11/24 08:45 99 Nasal Cannula 2 12/11/24 08:00 87 12/11/24 08:00 116/62 12/11/24 08:00 80 116/62 12/11/24 08:00 97.0 F L 80 30 H 116/62 92 12/11/24 06:00 84 12/11/24 06:00 104/74 12/11/24 06:00 82 104/75 12/11/24 06:00 82 20 104/74 97 12/11/24 05:41 82 20 100 Nasal Cannula 2 12/11/24 04:00 97.8 F 84 17 111/68 100 12/11/24 04:00 107/72 12/11/24 04:00 83 107/72 12/11/24 04:00 83 12/11/24 04:00 100 Nasal Cannula 2 12/11/24 02:00 107/50 L 12/11/24 02:00 83 107/50 L 12/11/24 02:00 80 20 107/50 L 99 12/11/24 01:26 82 20 99 Nasal Cannula 2 12/11/24 00:26 80 117/71 12/11/24 00:26 111/67 12/11/24 00:19 88 111/67 12/11/24 00:00 81 12/11/24 00:00 97.8 F 78 20 111/67 97 12/10/24 23:48 97 Nasal Cannula 2 12/10/24 22:00 117/71 12/10/24 22:00 80 117/71 12/10/24 22:00 80 20 117/71 97 12/10/24 20:05 90 20 100 2 12/10/24 20:03 82 20 12/10/24 20:00 96 Nasal Cannula 2 12/10/24 20:00 91 12/10/24 20:00 119/73 12/10/24 20:00 90 119/73 12/10/24 20:00 97.5 F L 83 20 121/69 98 12/10/24 18:22 109/64 12/10/24 18:00 82 12/10/24 18:00 82 20 109/64 100 12/10/24 18:00 111/68 12/10/24 18:00 91 109/64 12/10/24 16:03 84 123/72 12/10/24 16:00 123/72 12/10/24 16:00 97.1 F L 83 21 H 123/72 100 12/10/24 16:00 79 12/10/24 16:00 100 Nasal Cannula 2 12/10/24 15:58 83 123/72 12/10/24 15:30 117/77 Intake/Output Intake/Output: Intake & Output 12/08/24 12/09/24 12/10/24 12/11/24 23:59 23:59 23:59 23:59 Intake Total 2279.6 2409.2 2300.5 895.5 Output Total 1400 925 275 300 Balance 879.6 1484.2 2025.5 595.5 Meds/Results Medications: Active Medications Generic Name Dose Route Start Last Admin Trade Name Freq PRN Reason Stop Dose Admin Acetaminophen 650 mg 12/04/24 22:10 Acetaminophen 325 Mg Tablet PO Q4H PRN Mild Pain (1-3) or Fever Hydrocodone Bitart/Acetaminophen 1 tab 12/05/24 01:36 12/11/24 00:25 Hydrocodone/Acetaminophen (*Crx) 5-325 Mg Tablet PO 1 tab Q8H PRN Administration pain 7-10 Albuterol/Ipratropium 3 ml 12/06/24 08:00 12/09/24 21:08 Ipratropium 0.5 Mg/Albuterol Sulfate 2.5 Mg Ampul.Neb 3 Ml INHALATION 3 ml Q6HRT PRN Administration wheezine Amiodarone HCl 400 mg 12/07/24 09:15 12/11/24 09:08 Amiodarone Hcl 200 Mg Tablet PO 400 mg DAILY@0800 KRISTEN Administration Apixaban 5 mg 12/09/24 21:00 12/09/24 20:20 Apixaban 5 Mg Tablet PO 5 mg Q12HR KRISTEN Administration Atorvastatin Calcium 20 mg 12/05/24 09:00 12/11/24 09:08 Atorvastatin 20 Mg Tablet PO 20 mg DAILY KRISTEN Administration Bumetanide 2 mg 12/11/24 12:20 12/11/24 12:35 Bumetanide Inj 1 Mg/4 Ml Vial IV PUSH 12/12/24 00:21 2 mg Q12H KRISTEN Administration Docusate Sodium 100 mg 12/10/24 09:00 12/11/24 10:27 Docusate Sodium 100 Mg Capsule PO 100 mg Q12HR KRISTEN Administration Hydrocortisone Sodium Succinate 50 mg 12/10/24 18:00 12/11/24 06:21 Hydrocortisone Sodium Succinate 100 Mg/2 Ml Vial IV PUSH 12/12/24 06:01 50 mg Q12H KRISTEN Administration Dobutamine HCl/Dextrose 250 mg in 250 mls @ 45.45 mls/hr 12/06/24 07:55 12/11/24 12:00 Dobutamine 250 Mg/D5w 250 Ml IV CONT 7.5 mcg/kg/min .Q5H31M KRISTEN 45.45 mls/hr Infusion 7.5 MCG/KG/MIN Albumin Human 100 mls @ 60 mls/hr 12/11/24 21:00 Albutein IVPB Q12HR KRISTEN Levothyroxine Sodium 50 mcg 12/08/24 08:15 12/11/24 06:21 Levothyroxine Sodium 50 Mcg Tablet PO 50 mcg DAILY@0630 KRISTEN Administration Pantoprazole Sodium 40 mg 12/10/24 21:00 12/11/24 09:09 Pantoprazole Sodium Iv 40 Mg Vial IV PUSH 40 mg Q12HR KRISTEN Administration Polyethylene Glycol 17 gm 12/10/24 09:00 12/11/24 10:27 Polyethylene Glycol 3350 17 Gm Powd.Pack PO 17 gm QAM KRISTEN Administration Fluticasone/Salmeterol 2 puff 12/05/24 08:00 12/11/24 08:43 Fluticasone/Salmeterol 115-21 Mcg Inhaler 1 Puff INHALATION 2 puff Q12HRT KRISTEN Administration Sodium Chloride 10 ml 12/05/24 14:00 12/11/24 04:46 Central Line Flush IV PUSH 10 ml Q8HR KRISTEN Administration Sodium Chloride 10 ml 12/05/24 11:12 Central Line Flush IV PUSH PRN PRN with TPN bag changes Sodium Chloride 20 ml 12/05/24 11:12 12/10/24 05:36 Central Line Flush IV PUSH 20 ml PRN PRN Administration after blood draws Radiology Results: ITS Impressions Renal Ultrasound 12/05/24 15:17 IMPRESSION: No hydronephrosis or renal calculi. Findings suggesting medical renal disease. Chest CT 12/05/24 15:24 IMPRESSION: Findings consistent with pulmonary edema with a small right-sided pleural effusion. Additional findings worrisome for pulmonary hypertension, as detailed above. Trace anasarca. Intra-abdominal ascites Venous Doppler Study 12/05/24 16:06 IMPRESSION: Negative bilateral lower extremity venous US. No deep vein thrombosis. Chest X-Ray 12/11/24 05:39 Impression: Probable mild central pulmonary edema. Stable cardiomegaly with pacemaker device. Right-sided PICC line. Labs Labs: Laboratory Tests 12/11/24 04:18 12/11/24 04:18 Calcium 10.1 Phosphorus 3.4 Magnesium 2.3 Total Bilirubin 4.1 H AST 61 H ALT 91 H Alkaline Phosphatase 67 Total Protein 7.5 Albumin 4.8
[2024-12-11] MEDS: DOBUTamine 250 MG/D5W 250 ML 250 MG/250 ML BAG 45.45 MG IV CONT ×2 (15:08→20:35)
--- NOTE | 2024-12-11 20:41 | PCRCNOTE ---
Patient stated that she does not want to take Advair because it makes her throat hurt. Pt stated that dayshift was notified.
[2024-12-12] VITALS (20 sets, daily range): BP systolic 91–119; BP diastolic 63–86; PULSE 72–83; RESP 16–27; TEMP 36.3–36.8; O2SAT 95–100
[2024-12-12] MEDS: BUMETANIDE INJ 1 MG/4 ML VIAL 2 MG IV PUSH ×2 (00:57→08:42)
[2024-12-12] MEDS: DOBUTamine 250 MG/D5W 250 ML 250 MG/250 ML BAG 45.45 MG IV CONT ×2 (02:13→07:57)
[2024-12-12] MEDS: HYDROCORTISONE SODIUM SUCCINATE 100 MG/2 ML VIAL 50 MG IV PUSH (05:12)
[2024-12-12] MEDS: LEVOTHYROXINE SODIUM 50 MCG TABLET PO (05:13)
[2024-12-12] MEDS: CENTRAL LINE FLUSH 10 ML IV PUSH ×3 (05:23→22:00)
[2024-12-12 05:33] LABS: Hematocrit 35.2 % (37.0-47.0); Hemoglobin 10.8 g/dL (12.0-15.0); Immature Granulocyte Absolute 0.04 K/mm3 (0.00-0.031); Immature Granulocyte Percent A 0.5 % (0-0.5); Immature Platelet Fraction Pct 2.8 % (0.9-11.2); Lymphocytes Absolute Auto 0.62 K/mm3 (0.9-3.2); Lymphocytes Percent Auto 7.7 % (18.3-44.2); Mean Corpuscular HGB Conc 30.7 g/dl (32-36); Mean Corpuscular Hemoglobin 28.1 pg (26-34); Mean Corpuscular Volume 91.4 fl (80-100); Mean Platelet Volume 9.4 fl (7.4-10.4); Monocytes Absolute Auto 0.7 K/mm3 (0.1-0.6); Monocytes Percent Auto 8.2 % (2.6-8.5); Neutrophils Absolute Auto 6.8 K/mm3 (1.3-6.7); Neutrophils Percent Auto 83.6 % (45.5-73.1); Platelet Count Result 86 k/mm3 (150-375); Red Blood Count 3.85 M/mm3 (4.2-5.4); Red Cell Distribution Width 16.9 % (11.5-14.5); White Blood Count 8.1 K/mm3 (4.5-10.0)
[2024-12-12 05:46] LABS: Lactic Acid Reflex 1.1 mmol/L (0.7-2.0)
[2024-12-12 05:47] LABS: Alanine Aminotransferase 74 U/L (6-35); Albumin Level 5.1 g/dL (3.5-5.1); Alkaline Phosphatase 61 U/L (38-126); Anion Gap 15 mmol/L (4-12); Aspartate Amino Transferase 45 U/L (14-36); Bilirubin,Total 4.2 mg/dL (0.2-1.3); Blood Urea Nitrogen 64 mg/dL (7-17); Calcium 10.4 mg/dL (8.4-10.2); Carbon Dioxide 23 mmol/L (22-30); Chloride 89 mmol/L (98-107); Estimated CRCL calculation 25 ml/min; Estimated Glomerular Filt Rate 19; Glucose 84 mg/dL (65-110); Magnesium 2.4 mg/dL (1.6-2.3); Phosphorus 3.7 mg/dL (2.5-4.5); Sodium 127 mmol/L (137-145); Total Protein 7.7 g/dL (6.3-8.2)
[2024-12-12] MEDS: AMIODARONE HCL 200 MG TABLET 400 MG PO (08:41)
[2024-12-12] MEDS: ALBUMIN HUMAN 25% 25 GM/100 ML 100 ML IVPB ×2 (08:41→21:00)
[2024-12-12] MEDS: PANTOPRAZOLE SODIUM IV 40 MG VIAL IV PUSH ×2 (08:42→21:00)
[2024-12-12] MEDS: DOCUSATE SODIUM 100 MG CAPSULE PO ×2 (08:42→21:00)
[2024-12-12] MEDS: polyethylene glycoL 3350 17 GM POWD.PACK PO (08:42)
[2024-12-12] MEDS: ATORVASTATIN 20 MG TABLET PO (08:42)
--- NOTE | 2024-12-12 10:10 | PCSTNOTE ---
Please refer to the Bedside Swallow Evaluation in the EMR. Please note, silent aspiration cannot be ruled out at bedside. The patient is a 54 year old female admitted with CHF. The patient states she believes she had a reaction to her last inhaler use which caused swelling in her throat and difficulty swallowing. She stated it has improved and she is able to tolerate softer foods and liquids at this time. The patient was assessed with soft and liquid trials. She declined hard solids at this time. Oral stage: Timely oral preparation and transit across consistencies. Pharyngeal Stage: Timely swallow initiation without viewed clinical signs of aspiration or penetration to include no noted coughing, throat clearing, or changes in vocal quality. No further speech services recommended at this time.
--- NOTE | 2024-12-12 10:12 | P.PNCA_ITS ---
Progress Note: A&P Assessment and Plan (1) CHF (congestive heart failure): Qualifiers: Heart failure chronicity: acute Heart failure type: unspecified Qualified Code(s): I50.9 - Heart failure, unspecified Code(s): I50.9 - Heart failure, unspecified Status: Acute (2) Atrial fibrillation with RVR: Code(s): I48.91 - Unspecified atrial fibrillation Status: Acute (3) Hyperlipidemia: Code(s): E78.5 - Hyperlipidemia, unspecified Status: Acute Plan 54-year-old woman with chronic systolic heart failure (LVEF 10-50% in 09/2024 worsened compared to 09/2023 which was 20-25%) status post dual-chamber ICD, paroxysmal atrial fibrillation (not on anticoagulation due to frequent nosebleeds and low atrial fibrillation burden on device checks), hypertension, hyperlipidemia, and history of VT was admitted for shortness of breath found to be in acute decompensated systolic heart failure Acute decompensated systolic heart failure -continue dobutamine drip -can decrease Bumex to 1 mg IV b.i.d. -will add low dose losartan 12.5mg today -resume jardiance tomorrow -nephrology follow-up for acute renal injury -she lives at home by herself and uses rolling walker and given her social condition, as well as her morbid obesity she is not a candidate for transplant or LVAD at this time -she is indicated for Bi V ICD upgrade for which she can follow-up with Dr. Shaw who is her primary working manager/EP at [facility] -she did express that she needs a working manager closer to home and we will set her up to follow-up in our clinic here and determine if she should be referred to advance heart failure at [facility] Paroxysmal atrial fibrillation -continue amiodarone 400 mg p.o. daily for now and 200 mg p.o. daily at discharge History of ventricular tachycardia -status post ICD and would recommend Bi V upgrade given her worsening systolic heart failure in outpatient setting -continue amiodarone Hyperlipidemia -continue atorvastatin 20 mg every evening Subjective Date/time seen: 12/12/24 10:12 Interval history: Cardiology follow up visit States that her breathing is much better. No chest discomfort. States that she was going. 12/12/2024: Feeling about the same today. Breathing ok. Denies any chest pain. Wants to get up to use the bedside commode. Review of Systems Review of Systems: Complete review of systems was performed and negative other than those mentioned HPI Cardiovascular: Cardiovascular: Reports as per HPI Respiratory: Respiratory: Reports as per HPI Exam Const: General: comfortable and no acute distress Other: Ill-appearing HENMT: Mouth: Yes moist mucous membranes Eyes: General: appearance normal, both eyes and all related structures Sclera: sclerae normal EOM: EOMs intact bilaterally Neck: Neck: supple and no JVD Resp: Effort & Inspection: normal respiratory effort Auscultation: rales and diminished lung sounds Other: On supplemental oxygen Cardio: Rate: regular rate Rhythm: regular rhythm Other: Atrially paced GI: Auscultation: normal bowel sounds Skin: General skin exam: normal color Neuro: Speech: normal speech Other: Alert and oriented x3 Extrem: General: pedal edema Other: Obese, still has moderate soft pitting edema Psych: Mental Status: mental status grossly normal Affect: normal affect Objective Data Vital Signs Vital Signs: Vital Signs - 24 hr 12/11/24 10:45 12/11/24 12:00 12/11/24 12:00 Temperature 36.2 C L Pulse Rate 80 84 87 Respiratory Rate 27 H Blood Pressure 113/69 113/71 Pulse Oximetry 100 Oxygen Delivery Oxygen Flow Rate Fraction of Inspired Oxygen 12/11/24 12:00 12/11/24 14:00 12/11/24 14:00 Temperature Pulse Rate 84 88 80 Respiratory Rate Blood Pressure 113/71 116/73 Pulse Oximetry Oxygen Delivery Oxygen Flow Rate Fraction of Inspired Oxygen 12/11/24 14:00 12/11/24 15:08 12/11/24 15:08 Temperature 36.3 C L Pulse Rate 81 86 86 Respiratory Rate 21 H Blood Pressure 116/73 109/70 109/70 Pulse Oximetry 98 Oxygen Delivery Oxygen Flow Rate Fraction of Inspired Oxygen 12/11/24 16:00 12/11/24 16:00 12/11/24 16:00 Temperature 36.4 C L Pulse Rate 88 79 87 Respiratory Rate 30 H Blood Pressure 114/66 114/66 Pulse Oximetry 100 Oxygen Delivery Oxygen Flow Rate Fraction of Inspired Oxygen 12/11/24 17:58 12/11/24 18:00 12/11/24 18:00 Temperature 36.6 C Pulse Rate 85 83 78 Respiratory Rate 32 H Blood Pressure 110/64 106/70 Pulse Oximetry 96 Oxygen Delivery Oxygen Flow Rate Fraction of Inspired Oxygen 12/11/24 20:00 12/11/24 20:00 12/11/24 20:00 Temperature 36.6 C Pulse Rate 81 81 Respiratory Rate 23 H Blood Pressure 110/69 110/69 Pulse Oximetry 96 96 Oxygen Delivery Nasal Cannula Oxygen Flow Rate 2 Fraction of Inspired Oxygen 12/11/24 20:00 12/11/24 20:35 12/11/24 20:35 Temperature Pulse Rate 81 81 81 Respiratory Rate Blood Pressure 104/64 104/64 Pulse Oximetry Oxygen Delivery Oxygen Flow Rate Fraction of Inspired Oxygen 12/11/24 20:44 12/11/24 22:00 12/11/24 22:00 Temperature Pulse Rate 88 80 77 Respiratory Rate 25 H 27 H Blood Pressure 114/70 Pulse Oximetry 97 96 Oxygen Delivery Nasal Cannula Oxygen Flow Rate 2 Fraction of Inspired Oxygen 12/11/24 22:00 12/12/24 00:00 12/12/24 00:00 Temperature 36.3 C L Pulse Rate 80 77 77 Respiratory Rate 27 H Blood Pressure 114/70 113/70 113/70 Pulse Oximetry 96 Oxygen Delivery Oxygen Flow Rate Fraction of Inspired Oxygen 12/12/24 00:00 12/12/24 00:00 12/12/24 02:00 Temperature Pulse Rate 78 75 Respiratory Rate Blood Pressure 119/79 Pulse Oximetry 96 Oxygen Delivery Nasal Cannula Oxygen Flow Rate 2 Fraction of Inspired Oxygen 12/12/24 02:00 12/12/24 02:00 12/12/24 02:06 Temperature Pulse Rate 75 76 79 Respiratory Rate 20 Blood Pressure 119/79 116/70 Pulse Oximetry 96 Oxygen Delivery Oxygen Flow Rate Fraction of Inspired Oxygen 12/12/24 02:13 12/12/24 04:00 12/12/24 04:00 Temperature Pulse Rate 79 78 Respiratory Rate Blood Pressure 116/70 117/71 Pulse Oximetry 100 Oxygen Delivery Nasal Cannula Oxygen Flow Rate 2 Fraction of Inspired Oxygen 12/12/24 04:00 12/12/24 04:00 12/12/24 06:00 Temperature 36.3 C L Pulse Rate 78 73 80 Respiratory Rate 20 Blood Pressure 117/71 Pulse Oximetry 99 Oxygen Delivery Oxygen Flow Rate Fraction of Inspired Oxygen 12/12/24 06:00 12/12/24 06:00 12/12/24 07:43 Temperature Pulse Rate 80 80 75 Respiratory Rate 26 H Blood Pressure 113/64 113/64 114/63 Pulse Oximetry 100 Oxygen Delivery Oxygen Flow Rate Fraction of Inspired Oxygen 12/12/24 07:57 12/12/24 08:00 12/12/24 08:00 Temperature Pulse Rate 75 83 83 Respiratory Rate 24 H Blood Pressure 114/63 Pulse Oximetry 100 Oxygen Delivery Nasal Cannula Oxygen Flow Rate 2 Fraction of Inspired Oxygen 28 12/12/24 08:00 12/12/24 08:41 12/12/24 09:49 Temperature 36.4 C L Pulse Rate 83 78 77 Respiratory Rate 24 H Blood Pressure 114/63 109/69 Pulse Oximetry 100 Oxygen Delivery Oxygen Flow Rate Fraction of Inspired Oxygen 12/12/24 10:00 12/12/24 10:00 Temperature 36.4 C Pulse Rate 77 77 Respiratory Rate 27 H Blood Pressure 107/78 Pulse Oximetry 97 Oxygen Delivery Oxygen Flow Rate Fraction of Inspired Oxygen Intake/Output Intake/Output: Intake & Output 12/09/24 12/10/24 12/11/24 12/12/24 23:59 23:59 23:59 23:59 Intake Total 2409.2 2300.5 1449.8 1260.4 Output Total 925 275 700 400 Balance 1484.2 2025.5 749.8 860.4 Meds/Results Medications: Active Medications Generic Name Dose Route Start Last Admin Trade Name Freq PRN Reason Stop Dose Admin Acetaminophen 650 mg 12/04/24 22:10 Acetaminophen 325 Mg Tablet PO Q4H PRN Mild Pain (1-3) or Fever Hydrocodone Bitart/Acetaminophen 1 tab 12/05/24 01:36 12/11/24 00:25 Hydrocodone/Acetaminophen (*Crx) 5-325 Mg Tablet PO 1 tab Q8H PRN Administration pain 7-10 Albuterol/Ipratropium 3 ml 12/06/24 08:00 12/09/24 21:08 Ipratropium 0.5 Mg/Albuterol Sulfate 2.5 Mg Ampul.Neb 3 Ml INHALATION 3 ml Q6HRT PRN Administration wheezine Amiodarone HCl 400 mg 12/07/24 09:15 12/12/24 08:41 Amiodarone Hcl 200 Mg Tablet PO 400 mg DAILY@0800 KRISTEN Administration Apixaban 5 mg 12/09/24 21:00 12/09/24 20:20 Apixaban 5 Mg Tablet PO 5 mg Q12HR KRISTEN Administration Atorvastatin Calcium 20 mg 12/05/24 09:00 12/12/24 08:42 Atorvastatin 20 Mg Tablet PO 20 mg DAILY KRISTEN Administration Bumetanide 1 mg 12/12/24 21:00 Bumetanide Inj 1 Mg/4 Ml Vial IV PUSH Q12H KRISTEN Docusate Sodium 100 mg 12/10/24 09:00 12/12/24 08:42 Docusate Sodium 100 Mg Capsule PO 100 mg Q12HR KRISTEN Administration Dobutamine HCl/Dextrose 250 mg in 250 mls @ 30.3 mls/hr 12/06/24 07:55 12/12/24 09:49 Dobutamine 250 Mg/D5w 250 Ml IV CONT 5 mcg/kg/min .Q8H16M KRISTEN 30.3 mls/hr Infusion 5 MCG/KG/MIN Albumin Human 100 mls @ 60 mls/hr 12/11/24 21:00 12/12/24 08:41 Albutein IVPB 60 mls/hr Q12HR KRISTEN Administration Levothyroxine Sodium 50 mcg 12/08/24 08:15 12/12/24 05:13 Levothyroxine Sodium 50 Mcg Tablet PO 50 mcg DAILY@0630 KRISTEN Administration Losartan Potassium 12.5 mg 12/13/24 09:00 Losartan Potassium 12.5 Mg Tablet PO DAILY KRISTEN Pantoprazole Sodium 40 mg 12/10/24 21:00 12/12/24 08:42 Pantoprazole Sodium Iv 40 Mg Vial IV PUSH 40 mg Q12HR KRISTEN Administration Polyethylene Glycol 17 gm 12/10/24 09:00 12/12/24 08:42 Polyethylene Glycol 3350 17 Gm Powd.Pack PO 17 gm QAM KRISTEN Administration Fluticasone/Salmeterol 2 puff 12/05/24 08:00 12/12/24 07:50 Fluticasone/Salmeterol 115-21 Mcg Inhaler 1 Puff INHALATION Not Given Q12HRT KRISTEN Sodium Chloride 10 ml 12/05/24 14:00 12/12/24 05:23 Central Line Flush IV PUSH 10 ml Q8HR KRISTEN Administration Sodium Chloride 10 ml 12/05/24 11:12 Central Line Flush IV PUSH PRN PRN with TPN bag changes Sodium Chloride 20 ml 12/05/24 11:12 12/10/24 05:36 Central Line Flush IV PUSH 20 ml PRN PRN Administration after blood draws Radiology Results: ITS Impressions Renal Ultrasound 12/05/24 15:17 IMPRESSION: No hydronephrosis or renal calculi. Findings suggesting medical renal disease. Chest CT 12/05/24 15:24 IMPRESSION: Findings consistent with pulmonary edema with a small right-sided pleural effusion. Additional findings worrisome for pulmonary hypertension, as detailed above. Trace anasarca. Intra-abdominal ascites Venous Doppler Study 12/05/24 16:06 IMPRESSION: Negative bilateral lower extremity venous US. No deep vein thrombosis. Chest X-Ray 12/12/24 05:36 Impression: Probable mild pulmonary edema pattern. Right-sided PICC line. Stable cardiomegaly with pacemaker device. Labs Labs: Laboratory Results - last 24 hr 12/12/24 05:22 WBC 8.1 RBC 3.85 L Hgb 10.8 L Hct 35.2 L MCV 91.4 MCH 28.1 MCHC 30.7 L RDW 16.9 H Plt Count 86 L MPV 9.4 Immature Gran % (Auto) 0.5 Neut % (Auto) 83.6 H Lymph % (Auto) 7.7 L [place] % (Auto) 8.2 Eos % (Auto) 0.0 Baso % (Auto) 0.0 L Lymph # (Auto) 0.62 L [place] # (Auto) 0.7 H Eos # (Auto) 0.0 Baso # (Auto) 0.0 Abs Immat Gran (auto) 0.04 H Absolute Neuts (auto) 6.8 H Absolute Nucleated RBC 0.000 Nucleated RBC % 0.0 % Immature Plt Fraction 2.8 Sodium 127 L Potassium 5.0 Chloride 89 L Carbon Dioxide 23 Anion Gap 15 H BUN 64 H Creatinine 2.62 H Estim Creat Clear Calc 25 Estimated GFR 19 L Glucose 84 Lactic Acid 1.1 Calcium 10.4 H Phosphorus 3.7 Magnesium 2.4 H Total Bilirubin 4.2 H AST 45 H ALT 74 H Alkaline Phosphatase 61 Total Protein 7.7 Albumin 5.1
--- NOTE | 2024-12-12 10:39 | PCFNICU ---
ICU Rounding Note: Pt current nutrition is Heart healthy. Ensure HP+ BID (350 kcal, 20 g pro). Nutrition recommendation: No new recommendations. COntinue nutrition care plan and orders Last recorded weight is 107.1 kg. Bowel Motility: No BMs recorded yet Labs Reviewed: Hgb 10.8, Hct 35.2, Alb 2.4, Na 127, BUN 64, Cre 2.62 Meds Noted: Bumex, albumin, dobutamine Skin: WNL Additional Notes: Intakes are poor, 0-15 last 24 hours. Supplements are added. Continue to monitor Following daily in ICU rounds. Monitoring intakes, weights, labs, output, supplement tolerance, plan of care Follow up in 5 days. Daily rounds.
--- NOTE | 2024-12-12 12:31 | P.PNNP_ITS ---
Progress Note: A&P Assessment and Plan (1) Acute kidney injury: Code(s): N17.9 - Acute kidney failure, unspecified Status: Acute Assessment and Plan: * creatinine continues to fluctuate * as noted on admission - creatinine 2.66mg/dl * suspect multifactorial: * hemodynamic instability/hypotension * decompensated heart failure * use of ARB and diuretics prior to admission * Afib with RVR * infection -- less likely * other (?) * evaluation to date noted: * renal ultrasound with medical renal disease * urine electrolytes prerenal (indicative of depressed EF given volume overloaded state) * urine eosinophils negative * CPK mildly elevated (but not enough to affect kidney function) * moderate proteinuria (~ 900mg) * suspect due to cardiorenal syndrome worsened by hemodynamic instability/severe hypotension * she remains at risk for PAIRER ODDS/dialysis more so for fluid removal * however, if this is needed, I doubt she she will tolerate conventional HD -- she may need CRRT... * follow repeat labs and UOP (2) Stage 3b chronic kidney disease: Code(s): N18.32 - Chronic kidney disease, stage 3b Status: Acute Assessment and Plan: * creatinine running around 1.60 - 1.75mg/dl during September [address] [facility] * earlier this month creatinine was noted to be 2.18mg/dl * creatinine in September 2023 was running 1.2 - 1.3mg/dl * suspect underlying CKD due cardiorenal syndrome given depressed EF/cardiomyopathy (3) Shortness of breath: Code(s): R06.02 - Shortness of breath Status: Acute Assessment and Plan: * due to several issues: * volume overload * acute on chronic CHF/cardiomyopathy * atrial fibrillation with RVR * possible pneumonia (less likely) * other (?) * no evidence of acute respiratory distress * on home oxygen requirements * CT of chest without infiltrates or pneumonia; evidence of pulmonary edema noted * antibiotics dc'd * continue attempts at diuresis * follow respiratory status (4) Acute on chronic systolic heart failure: Code(s): I50.23 - Acute on chronic systolic (congestive) heart failure Status: Acute Assessment and Plan: * as suggested by imaging, labs, and exam * Echo (09/27/24) at [facility] noted: * ejection fraction is visually estimated to be 10-15% * diastolic function E to E' ratio is >15 suggesting a high pulminary wedge pressure and LV diastolic dysfunction * no obvious thrombus noted * mildly dilated right and left atrium. * mild tricuspid regurgitation * estimated right ventricular systolic pressure is 33 mmHg * IVC is dilated * estimated RA pressure is 8 mmHg * normal cardiac catheterization noted (September 2024) * institution of GMDT was limited by hypotension during September 2024 hospitalization * Cardiology following * repeat Echo (12/05) reviewed: * four-chamber dilated cardiomyopathy * profound left and right ventricular systolic dysfunction ejection fraction 10-15% * mild MR resulting from annular dilation * mild aortic valve sclerosis * moderate to severe tricuspid valve regurgitation * moderate pulmonary hypertension, estimated pulmonary arterial systolic pressure is 57 mmHg * on dobutamine + IV diuretics along with IV albumin * however, not in negative fluid balance * CXR results noted (5) Hypotension: Code(s): I95.9 - Hypotension, unspecified Status: Acute Assessment and Plan: * as noted since admission * probably related to severity of her cardiomyopathy (cardiogenic shock) * remains on dobutamine gtt * weaned off levophed * give lowish cortisol, stress dose steroids added * wean as tolerated * follow trend of hemodynamics (6) Atrial fibrillation with RVR: Code(s): I48.91 - Unspecified atrial fibrillation Status: Acute Assessment and Plan: * noted again but rate controlled * off amiodarone gtt at this time * on oral amiodarone * repeat Echo noted (see #4) * Cardiology following * on anticoagulation (Eliquis) (7) Hyponatremia: Code(s): E87.1 - Hypo-osmolality and hyponatremia Status: Acute Assessment and Plan: * continues to fluctuate * presumably related to chronic CHF along with SANDRA/CKD and hypervolemia * sodium was running around 133 - 137 during September 2024 hospitalization at [facility] * evaluation noted: * TSH okay * cortisol on the lower end (but on steroids at this time) * urine electrolytes noted * SPEP with possible M-spike; UPEP pending * serum osmolality 288; urine osmolality 237 * serum/urine immunofixation pending * follow trend of repeat sodiums (8) Lower extremity edema: Code(s): R60.0 - Localized edema Status: Acute Assessment and Plan: * localized to her lower extremities * likely a manifestation of chronic CHF and current SANDRA on CKD * lower extremity dopplers negative * diuresis as tolerated * consider DARRYL-wraps/compression stocking and LE elevation Discussed case with Dr. Piña. Will continue to follow. L Subjective Date/time seen: 12/12/24 12:31 Interval history: Follow-up for acute kidney injury/acute renal failure on chronic kidney disease. Urine output a bit better in the last 24 hours and remains on dobutamine gtt -- still has shortness of breath with any exertional activity and her CXR remains unchanged; renal function/creatinine a bit worse by AM labs; hemodynamics relatively stable off vasopressor therapy. Exam 2 Narrative: General: WD/WN female in NAD Heart: normal S1 and S2; no rub Lungs: coarse with a few bibasilar crackles Abdomen: soft, nontender, nondistended, positive bowel sounds Extremities: no cyanosis or clubbing; 1 - 2+ edema Skin: no nodules Objective Data Vital Signs Vital Signs: Vital Signs Temp Pulse Resp BP Pulse Ox O2 Del Method O2 Flow Rate 12/12/24 12:00 98.1 F 82 22 H 91/70 L 96 12/12/24 10:00 97.6 F 77 27 H 107/78 97 12/12/24 10:00 77 12/12/24 09:49 77 109/69 12/12/24 08:41 78 12/12/24 08:00 97.5 F L 83 24 H 114/63 100 12/12/24 08:00 83 12/12/24 08:00 83 24 H 100 Nasal Cannula 2 12/12/24 07:57 75 114/63 12/12/24 07:43 75 114/63 12/12/24 06:00 80 113/64 12/12/24 06:00 80 26 H 113/64 100 12/12/24 06:00 80 12/12/24 04:00 73 12/12/24 04:00 97.3 F L 78 20 117/71 99 12/12/24 04:00 78 117/71 12/12/24 04:00 100 Nasal Cannula 2 12/12/24 02:13 79 116/70 12/12/24 02:06 79 116/70 12/12/24 02:00 76 20 119/79 96 12/12/24 02:00 75 12/12/24 02:00 75 119/79 12/12/24 00:00 78 12/12/24 00:00 96 Nasal Cannula 2 12/12/24 00:00 77 113/70 12/12/24 00:00 97.4 F L 77 27 H 113/70 96 12/11/24 22:00 80 114/70 12/11/24 22:00 77 12/11/24 22:00 80 27 H 114/70 96 12/11/24 20:44 88 25 H 97 Nasal Cannula 2 12/11/24 20:35 81 104/64 12/11/24 20:35 81 104/64 12/11/24 20:00 81 12/11/24 20:00 97.8 F 81 23 H 110/69 96 12/11/24 20:00 96 Nasal Cannula 2 12/11/24 20:00 81 110/69 12/11/24 18:00 78 12/11/24 18:00 97.8 F 83 32 H 106/70 96 12/11/24 17:58 85 110/64 Intake/Output Intake/Output: Intake & Output 12/09/24 12/10/24 12/11/24 12/12/24 23:59 23:59 23:59 23:59 Intake Total 2409.2 2300.5 1449.8 1667.8 Output Total 925 275 700 400 Balance 1484.2 2025.5 749.8 1267.8 Meds/Results Medications: Active Medications Generic Name Dose Route Start Last Admin Trade Name Freq PRN Reason Stop Dose Admin Acetaminophen 650 mg 12/04/24 22:10 Acetaminophen 325 Mg Tablet PO Q4H PRN Mild Pain (1-3) or Fever Hydrocodone Bitart/Acetaminophen 1 tab 12/05/24 01:36 12/11/24 00:25 Hydrocodone/Acetaminophen (*Crx) 5-325 Mg Tablet PO 1 tab Q8H PRN Administration pain 7-10 Albuterol/Ipratropium 3 ml 12/06/24 08:00 12/09/24 21:08 Ipratropium 0.5 Mg/Albuterol Sulfate 2.5 Mg Ampul.Neb 3 Ml INHALATION 3 ml Q6HRT PRN Administration wheezine Amiodarone HCl 400 mg 12/07/24 09:15 12/12/24 08:41 Amiodarone Hcl 200 Mg Tablet PO 400 mg DAILY@0800 KRISTEN Administration Apixaban 5 mg 06/23/25 21:00 12/09/24 20:20 Apixaban 5 Mg Tablet PO 5 mg Q12HR KRISTEN Administration Atorvastatin Calcium 20 mg 12/05/24 09:00 12/12/24 08:42 Atorvastatin 20 Mg Tablet PO 20 mg DAILY KRISTEN Administration Bumetanide 1 mg 12/12/24 21:00 Bumetanide Inj 1 Mg/4 Ml Vial IV PUSH Q12H KRISTEN Docusate Sodium 100 mg 12/10/24 09:00 12/12/24 08:42 Docusate Sodium 100 Mg Capsule PO 100 mg Q12HR KRISTEN Administration Dobutamine HCl/Dextrose 250 mg in 250 mls @ 30.3 mls/hr 12/06/24 07:55 12/12/24 16:00 Dobutamine 250 Mg/D5w 250 Ml IV CONT 5 mcg/kg/min .Q8H16M KRISTEN 30.3 mls/hr Infusion 5 MCG/KG/MIN Albumin Human 100 mls @ 60 mls/hr 12/11/24 21:00 12/12/24 10:22 Albutein IVPB Infused Q12HR KRISTEN Infusion Levothyroxine Sodium 50 mcg 12/08/24 08:15 12/12/24 05:13 Levothyroxine Sodium 50 Mcg Tablet PO 50 mcg DAILY@0630 KRISTEN Administration Losartan Potassium 12.5 mg 12/13/24 09:00 Losartan Potassium 12.5 Mg Tablet PO DAILY KRISTEN Pantoprazole Sodium 40 mg 12/10/24 21:00 12/12/24 08:42 Pantoprazole Sodium Iv 40 Mg Vial IV PUSH 40 mg Q12HR KRISTEN Administration Polyethylene Glycol 17 gm 12/10/24 09:00 12/12/24 08:42 Polyethylene Glycol 3350 17 Gm Powd.Pack PO 17 gm QAM KRISTEN Administration Fluticasone/Salmeterol 2 puff 12/05/24 08:00 12/12/24 07:50 Fluticasone/Salmeterol 115-21 Mcg Inhaler 1 Puff INHALATION Not Given Q12HRT KRISTEN Sodium Chloride 10 ml 12/05/24 14:00 12/12/24 14:18 Central Line Flush IV PUSH 10 ml Q8HR KRISTEN Administration Sodium Chloride 10 ml 12/05/24 11:12 Central Line Flush IV PUSH PRN PRN with TPN bag changes Sodium Chloride 20 ml 12/05/24 11:12 12/10/24 05:36 Central Line Flush IV PUSH 20 ml PRN PRN Administration after blood draws Radiology Results: ITS Impressions Renal Ultrasound 12/05/24 15:17 IMPRESSION: No hydronephrosis or renal calculi. Findings suggesting medical renal disease. Chest CT 12/05/24 15:24 IMPRESSION: Findings consistent with pulmonary edema with a small right-sided pleural effusion. Additional findings worrisome for pulmonary hypertension, as detailed above. Trace anasarca. Intra-abdominal ascites Venous Doppler Study 12/05/24 16:06 IMPRESSION: Negative bilateral lower extremity venous US. No deep vein thrombosis. Chest X-Ray 12/12/24 05:36 Impression: Probable mild pulmonary edema pattern. Right-sided PICC line. Stable cardiomegaly with pacemaker device. Labs Labs: Laboratory Tests 12/12/24 05:22 12/12/24 05:22 Lactic Acid 1.1 Calcium 10.4 H Phosphorus 3.7 Magnesium 2.4 H Total Bilirubin 4.2 H AST 45 H ALT 74 H Alkaline Phosphatase 61 Total Protein 7.7 Albumin 5.1
--- NOTE | 2024-12-12 12:31 | PM.PNNEP ---
Progress Note: A&P Assessment and Plan (1) Acute kidney injury: Code(s): N17.9 - Acute kidney failure, unspecified Status: Acute Assessment and Plan: creatinine continues to fluctuate as noted on admission - creatinine 2.66mg/dl suspect multifactorial: hemodynamic instability/hypotension decompensated heart failure use of ARB and diuretics prior to admission Afib with RVR infection -- less likely other (?) evaluation to date noted: renal ultrasound with medical renal disease urine electrolytes prerenal (indicative of depressed EF given volume overloaded state) urine eosinophils negative CPK mildly elevated (but not enough to affect kidney function) moderate proteinuria (~ 900mg) suspect due to cardiorenal syndrome worsened by hemodynamic instability/severe hypotension she remains at risk for IRONER SOCK/dialysis more so for fluid removal however, if this is needed, I doubt she she will tolerate conventional HD -- she may need CRRT... follow repeat labs and UOP (2) Stage 3b chronic kidney disease: Code(s): N18.32 - Chronic kidney disease, stage 3b Status: Acute Assessment and Plan: creatinine running around 1.60 - 1.75mg/dl during September 2024 hospitalization at [facility] earlier this month creatinine was noted to be 2.18mg/dl creatinine in September 2023 was running 1.2 - 1.3mg/dl suspect underlying CKD due cardiorenal syndrome given depressed EF/cardiomyopathy (3) Shortness of breath: Code(s): R06.02 - Shortness of breath Status: Acute Assessment and Plan: due to several issues: volume overload acute on chronic CHF/cardiomyopathy atrial fibrillation with RVR possible pneumonia (less likely) other (?) no evidence of acute respiratory distress on home oxygen requirements CT of chest without infiltrates or pneumonia; evidence of pulmonary edema noted antibiotics dc'd continue attempts at diuresis follow respiratory status (4) Acute on chronic systolic heart failure: Code(s): I50.23 - Acute on chronic systolic (congestive) heart failure Status: Acute Assessment and Plan: as suggested by imaging, labs, and exam Echo (09/27/24) at [facility] noted: ejection fraction is visually estimated to be 10-15% diastolic function E to E' ratio is >15 suggesting a high pulminary wedge pressure and LV diastolic dysfunction no obvious thrombus noted mildly dilated right and left atrium. mild tricuspid regurgitation estimated right ventricular systolic pressure is 33 mmHg IVC is dilated estimated RA pressure is 8 mmHg normal cardiac catheterization noted (September 2024) institution of GMDT was limited by hypotension during September 2024 hospitalization Cardiology following repeat Echo (12/05) reviewed: four-chamber dilated cardiomyopathy profound left and right ventricular systolic dysfunction ejection fraction 10-15% mild MR resulting from annular dilation mild aortic valve sclerosis moderate to severe tricuspid valve regurgitation moderate pulmonary hypertension, estimated pulmonary arterial systolic pressure is 57 mmHg on dobutamine + IV diuretics along with IV albumin however, not in negative fluid balance CXR results noted (5) Hypotension: Code(s): I95.9 - Hypotension, unspecified Status: Acute Assessment and Plan: as noted since admission probably related to severity of her cardiomyopathy (cardiogenic shock) remains on dobutamine gtt weaned off levophed give lowish cortisol, stress dose steroids added wean as tolerated follow trend of hemodynamics (6) Atrial fibrillation with RVR: Code(s): I48.91 - Unspecified atrial fibrillation Status: Acute Assessment and Plan: noted again but rate controlled off amiodarone gtt at this time on oral amiodarone repeat Echo noted (see #4) Cardiology following on anticoagulation (Eliquis) (7) Hyponatremia: Code(s): E87.1 - Hypo-osmolality and hyponatremia Status: Acute Assessment and Plan: continues to fluctuate presumably related to chronic CHF along with SANDRA/CKD and hypervolemia sodium was running around 133 - 137 during September 2024 hospitalization at [facility] evaluation noted: TSH okay cortisol on the lower end (but on steroids at this time) urine electrolytes noted SPEP with possible M-spike; UPEP pending serum osmolality 288; urine osmolality 237 serum/urine immunofixation pending follow trend of repeat sodiums (8) Lower extremity edema: Code(s): R60.0 - Localized edema Status: Acute Assessment and Plan: localized to her lower extremities likely a manifestation of chronic CHF and current SANDRA on CKD lower extremity dopplers negative diuresis as tolerated consider DARRYL-wraps/compression stocking and LE elevation Discussed case with Dr. Piña. Will continue to follow. Subjective Date/time seen: 12/12/24 12:31 Interval history: Follow-up for acute kidney injury/acute renal failure on chronic kidney disease. Urine output a bit better in the last 24 hours and remains on dobutamine gtt -- still has shortness of breath with any exertional activity and her CXR remains unchanged; renal function/creatinine a bit worse by AM labs; hemodynamics relatively stable off vasopressor therapy. Exam Narrative: General: WD/WN female in NAD Heart: normal S1 and S2; no rub Lungs: coarse with a few bibasilar crackles Abdomen: soft, nontender, nondistended, positive bowel sounds Extremities: no cyanosis or clubbing; 1 - 2+ edema Skin: no nodules Objective Data Vital Signs Vital Signs: Vital Signs Temp Pulse Resp BP Pulse Ox O2 Del Method O2 Flow Rate 12/12/24 12:00 98.1 F 82 22 H 91/70 L 96 12/12/24 10:00 97.6 F 77 27 H 107/78 97 12/12/24 10:00 77 12/12/24 09:49 77 109/69 12/12/24 08:41 78 12/12/24 08:00 97.5 F L 83 24 H 114/63 100 12/12/24 08:00 83 12/12/24 08:00 83 24 H 100 Nasal Cannula 2 12/12/24 07:57 75 114/63 12/12/24 07:43 75 114/63 12/12/24 06:00 80 113/64 12/12/24 06:00 80 26 H 113/64 100 12/12/24 06:00 80 12/12/24 04:00 73 12/12/24 04:00 97.3 F L 78 20 117/71 99 12/12/24 04:00 78 117/71 12/12/24 04:00 100 Nasal Cannula 2 12/12/24 02:13 79 116/70 12/12/24 02:06 79 116/70 12/12/24 02:00 76 20 119/79 96 12/12/24 02:00 75 12/12/24 02:00 75 119/79 12/12/24 00:00 78 12/12/24 00:00 96 Nasal Cannula 2 12/12/24 00:00 77 113/70 12/12/24 00:00 97.4 F L 77 27 H 113/70 96 12/11/24 22:00 80 114/70 12/11/24 22:00 77 12/11/24 22:00 80 27 H 114/70 96 12/11/24 20:44 88 25 H 97 Nasal Cannula 2 12/11/24 20:35 81 104/64 12/11/24 20:35 81 104/64 12/11/24 20:00 81 12/11/24 20:00 97.8 F 81 23 H 110/69 96 12/11/24 20:00 96 Nasal Cannula 2 12/11/24 20:00 81 110/69 12/11/24 18:00 78 12/11/24 18:00 97.8 F 83 32 H 106/70 96 12/11/24 17:58 85 110/64 Intake/Output Intake/Output: Intake & Output 12/09/24 12/10/24 12/11/24 12/12/24 23:59 23:59 23:59 23:59 Intake Total 2409.2 2300.5 1449.8 1667.8 Output Total 925 275 700 400 Balance 1484.2 2025.5 749.8 1267.8 Meds/Results Medications: Active Medications Generic Name Dose Route Start Last Admin Trade Name Freq PRN Reason Stop Dose Admin Acetaminophen 650 mg 12/04/24 22:10 Acetaminophen 325 Mg Tablet PO Q4H PRN Mild Pain (1-3) or Fever Hydrocodone Bitart/Acetaminophen 1 tab 12/05/24 01:36 12/11/24 00:25 Hydrocodone/Acetaminophen (*Crx) 5-325 Mg Tablet PO 1 tab Q8H PRN Administration pain 7-10 Albuterol/Ipratropium 3 ml 12/06/24 08:00 12/09/24 21:08 Ipratropium 0.5 Mg/Albuterol Sulfate 2.5 Mg Ampul.Neb 3 Ml INHALATION 3 ml Q6HRT PRN Administration wheezine Amiodarone HCl 400 mg 12/07/24 09:15 12/12/24 08:41 Amiodarone Hcl 200 Mg Tablet PO 400 mg DAILY@0800 KRISTEN Administration Apixaban 5 mg 12/09/24 21:00 12/09/24 20:20 Apixaban 5 Mg Tablet PO 5 mg Q12HR KRISTEN Administration Atorvastatin Calcium 20 mg 12/05/24 09:00 12/12/24 08:42 Atorvastatin 20 Mg Tablet PO 20 mg DAILY KRISTEN Administration Bumetanide 1 mg 12/12/24 21:00 Bumetanide Inj 1 Mg/4 Ml Vial IV PUSH Q12H KRISTEN Docusate Sodium 100 mg 12/10/24 09:00 12/12/24 08:42 Docusate Sodium 100 Mg Capsule PO 100 mg Q12HR KRISTEN Administration Dobutamine HCl/Dextrose 250 mg in 250 mls @ 30.3 mls/hr 12/06/24 07:55 12/12/24 16:00 Dobutamine 250 Mg/D5w 250 Ml IV CONT 5 mcg/kg/min .Q8H16M KRISTEN 30.3 mls/hr Infusion 5 MCG/KG/MIN Albumin Human 100 mls @ 60 mls/hr 12/11/24 21:00 12/12/24 10:22 Albutein IVPB Infused Q12HR KRISTEN Infusion Levothyroxine Sodium 50 mcg 12/08/24 08:15 12/12/24 05:13 Levothyroxine Sodium 50 Mcg Tablet PO 50 mcg DAILY@0630 KRISTEN Administration Losartan Potassium 12.5 mg 12/13/24 09:00 Losartan Potassium 12.5 Mg Tablet PO DAILY KRISTEN Pantoprazole Sodium 40 mg 12/10/24 21:00 12/12/24 08:42 Pantoprazole Sodium Iv 40 Mg Vial IV PUSH 40 mg Q12HR KRISTEN Administration Polyethylene Glycol 17 gm 12/10/24 09:00 12/12/24 08:42 Polyethylene Glycol 3350 17 Gm Powd.Pack PO 17 gm QAM KRISTEN Administration Fluticasone/Salmeterol 2 puff 12/05/24 08:00 12/12/24 07:50 Fluticasone/Salmeterol 115-21 Mcg Inhaler 1 Puff INHALATION Not Given Q12HRT KRISTEN Sodium Chloride 10 ml 12/05/24 14:00 12/12/24 14:18 Central Line Flush IV PUSH 10 ml Q8HR KRISTEN Administration Sodium Chloride 10 ml 12/05/24 11:12 Central Line Flush IV PUSH PRN PRN with TPN bag changes Sodium Chloride 20 ml 12/05/24 11:12 12/10/24 05:36 Central Line Flush IV PUSH 20 ml PRN PRN Administration after blood draws Radiology Results: ITS Impressions Renal Ultrasound 12/05/24 15:17 IMPRESSION: No hydronephrosis or renal calculi. Findings suggesting medical renal disease. Chest CT 12/05/24 15:24 IMPRESSION: Findings consistent with pulmonary edema with a small right-sided pleural effusion. Additional findings worrisome for pulmonary hypertension, as detailed above. Trace anasarca. Intra-abdominal ascites Venous Doppler Study 12/05/24 16:06 IMPRESSION: Negative bilateral lower extremity venous US. No deep vein thrombosis. Chest X-Ray 12/12/24 05:36 Impression: Probable mild pulmonary edema pattern. Right-sided PICC line. Stable cardiomegaly with pacemaker device. Labs Labs: Laboratory Tests 12/12/24 05:22 12/12/24 05:22 Lactic Acid 1.1 Calcium 10.4 H Phosphorus 3.7 Magnesium 2.4 H Total Bilirubin 4.2 H AST 45 H ALT 74 H Alkaline Phosphatase 61 Total Protein 7.7 Albumin 5.1
--- NOTE | 2024-12-12 12:44 | P.PNINT_ITS ---
Progress Note: A&P Assessment and Plan (1) Shortness of breath: Code(s): R06.02 - Shortness of breath Status: Acute Assessment and Plan: Patient presented with shortness of breath without history of fever and dry cough Likely secondary to congestive heart failure, cardiogenic shock and presented with AFib with RVR. She remains on 2 L nasal cannula with which she takes at home She does not appear in any respiratory distress. Exam as above Chest x-ray this morning shows pulmonary edema She has normal WBC and is afebrile. She was started on empiric antibiotics. But her procalcitonin level was low and CT scan did not show any infiltrates or findings suggestive of pneumonia. Antibiotics discontinued (2) Acute exacerbation of CHF (congestive heart failure): Code(s): I50.9 - Heart failure, unspecified Status: Acute Assessment and Plan: Patient has history of congestive heart failure. Echo in 2020 showed EF 20-25% she had a recent echocardiogram which showed 10-15% EF. . She had a negative cardiac catheterization as per Cardiology records 12/12: Discuss with Cardiology, continue dobutamine at 5 mcg/kg/min, decrease Bumex to 1 mg IV q.12 hours, start losartan at 12.5 mg daily 12/05/2024: Echocardiogram Summary 1. Four-chamber dilated cardiomyopathy. 2. Profound left and right ventricular systolic dysfunction ejection fraction 10-15%. 3. Mild MR resulting from annular dilation. 4. At least moderate pulmonary hypertension based on tricuspid regurgitant velocity After discussion with Cardiology patient was started on dobutamine for post to inotropic effect to allow diuresis in light of kidney injury Continue dobutamine and Lasix and albumin (3) Non-ST elevation MD (NSTEMI): Code(s): I21.4 - Non-ST elevation (NSTEMI) myocardial infarction Status: Acute Assessment and Plan: Mild elevation in troponin with no chest pain. EKG reviewed Patient presented with AFib with RVR As per Cardiology, patient had a cardiac catheterization in recent past which was negative any coronary disease Patient has not been on anticoagulation as an outpatient due to history of frequent and significant nose bleeds. Patient was started on heparin drip for AFib with RVR and closely monitor which was switched to Eliquis -Eliquis currently on hold due to low platelets, -if hemoglobins platelets remain stable will restart Eliquis in a.m. Continue statin Not on beta-saba Rian or ARB due to low blood pressure and elevated creatinine (4) Pneumonia: Code(s): J18.9 - Pneumonia, unspecified organism Status: Acute Assessment and Plan: See above (5) Hyperlipidemia: Code(s): E78.5 - Hyperlipidemia, unspecified Status: Acute Assessment and Plan: Continue atorvastatin (6) Elevated serum creatinine: Code(s): R79.89 - Other specified abnormal findings of blood chemistry Status: Acute Assessment and Plan: Last recorded creatinine was 1.5 in 2022 presented with creatinine of 2.66. Two weeks ago creatinine was 2.18 I suspect patient has chronic kidney disease and may have acute kidney injury, likely low-flow States from cardiogenic shock and acute on chronic heart failure, Renal ultrasound showed medical renal disease CK minimally elevated Betts and accurate I&Os Nephrology evaluated the patient and following will defer further workup for renal failure to Nephrology Started on Bumex infusion, continue albumin Creatinine worsened to 2.25 this morning Monitor urine output electrolytes and creatinine (7) Lower extremity edema: Code(s): R60.0 - Localized edema Status: Acute Assessment and Plan: Likely secondary to congestive heart failure and kidney dysfunction Diuresis as above Lower extremity Dopplers negative for DVT (8) Atrial fibrillation with RVR: Code(s): I48.91 - Unspecified atrial fibrillation Status: Acute Assessment and Plan: Presented with AFib with RVR. Not on any antiplatelet or anticoagulation as an outpatient Patient was started on amiodarone infusion at the time of admission as patient blood pressure was low for rate control Echo ordered and reviewed Patient does not take aspirin due to history of allergy. Patient states that she used to be on Eliquis in the past but it was discontinued due to frequent severe nosebleed Discussed with pig lead melter helper and she recommends starting anticoagulation. I spoke to patient and discussed risks and benefits. W -status post control infusion, was started on Eliquis which is currently on hold due to thrombocytopenia Amiodarone infusion was discontinued as patient has converted to sinus rhythm. Patient now on p.o. amiodarone per Cardiology Patient continues to be in sinus rhythm with PACs. Monitor (9) Cardiogenic shock: Code(s): R57.0 - Cardiogenic shock Status: Acute Assessment and Plan: Continue dobutaminefor ionotropic support. Levophed weaned off The patient's cortisol level was low hence started on hydrocortisone stress dose -weaning steroids as off pressors (10) Electrolyte abnormality: Code(s): E87.8 - Other disorders of electrolyte and fluid balance, not elsewhere classified Status: Acute Assessment and Plan: Potassium improved after replacement (11) Hypothyroidism: Code(s): E03.9 - Hypothyroidism, unspecified Status: Acute Assessment and Plan: High TSH with low T3 Continue levothyroxine Plan DVT prophylaxis -SCDs, no chemoprophylaxis due to thrombocytopenia Stress ulcer prophylaxis: Protonix Nutrition -heart healthy diet Code Status -patient wishes to be DNR/DNI she does not want to go on a ventilator or receive CPR in the event of cardiac arrest. She states she does not have any family member in town. She is single and has been estranged from her children. Most of her relatives live in [place] Total Critical Care Time - 32 minutes Due to a high probability of clinically significant, life threatening deterioration, the patient required my highest level of preparedness to intervene emergently and I personally spent this critical care time directly and personally managing the patient. This critical care time included obtaining a history; examining the patient; pulse oximetry; ordering and review of studies; arranging urgent treatment with development of a management plan; evaluation of patient's response to treatment; frequent reassessment; and discussions with other providers. It was exclusive of separately billable procedures and treating other patients and teaching time. Please see Assessment and Plan section and the rest of the note for further information on patient assessment and treatment Subjective Date/time seen: 12/12/24 12:44 Interval history: Reason for consult: Cardiogenic shock, acute on chronic systolic heart failure, atrial fibrillation with RVR, acute renal failure likely low flow state 12/12/2024: Patient seen and examined the ICU, remains on dobutamine at 7.5 mcg/kg/min, urine output has been adequate on Bumex q.12 hours. Patient denies any chest pain, does complain of some shortness of breath with exertion, denies any nausea vomiting or abdominal pain. Blood pressures have remained stable, off vasopressors Review of Systems Review of Systems: All systems reviewed & are unremarkable except as noted in HPI and below (HPI) Exam Narrative: General: Pt is alert awake and in NAD Lungs/Chest: Trachea central Clear BS B/L, few crackles at the bases right more than left. No respiratory distress, no use of accessory muscles, no significant wheezing Cardiac: Currently in sinus rhythm, rate controlled, S1-S2 is normal Circulation: Pedal pulses are intact and symmetrical. Abdomen: Normal bowel sounds.. Soft. NT. ND. Extremities: Bilateral lower extremity pitting edema present :. Betts catheter in place Neurologic: Follows commands. Moves all 4 extremities PERRL AO x3 Skin: Intertrigo in the inguinal folds Objective Data Vital Signs Vital Signs: Vital Signs - 24 hr 12/11/24 14:00 12/11/24 14:00 12/11/24 14:00 Temperature 97.4 F L Pulse Rate 88 80 81 Respiratory Rate 21 H Blood Pressure 116/73 116/73 Pulse Oximetry 98 Oxygen Delivery Oxygen Flow Rate Fraction of Inspired Oxygen 12/11/24 15:08 12/11/24 15:08 12/11/24 16:00 Temperature Pulse Rate 86 86 88 Respiratory Rate Blood Pressure 109/70 109/70 Pulse Oximetry Oxygen Delivery Oxygen Flow Rate Fraction of Inspired Oxygen 12/11/24 16:00 12/11/24 16:00 12/11/24 17:58 Temperature 97.5 F L Pulse Rate 79 87 85 Respiratory Rate 30 H Blood Pressure 114/66 114/66 110/64 Pulse Oximetry 100 Oxygen Delivery Oxygen Flow Rate Fraction of Inspired Oxygen 12/11/24 18:00 12/11/24 18:00 12/11/24 20:00 Temperature 97.8 F Pulse Rate 83 78 81 Respiratory Rate 32 H Blood Pressure 106/70 110/69 Pulse Oximetry 96 Oxygen Delivery Oxygen Flow Rate Fraction of Inspired Oxygen 12/11/24 20:00 12/11/24 20:00 12/11/24 20:00 Temperature 97.8 F Pulse Rate 81 81 Respiratory Rate 23 H Blood Pressure 110/69 Pulse Oximetry 96 96 Oxygen Delivery Nasal Cannula Oxygen Flow Rate 2 Fraction of Inspired Oxygen 12/11/24 20:35 12/11/24 20:35 12/11/24 20:44 Temperature Pulse Rate 81 81 88 Respiratory Rate 25 H Blood Pressure 104/64 104/64 Pulse Oximetry 97 Oxygen Delivery Nasal Cannula Oxygen Flow Rate 2 Fraction of Inspired Oxygen 12/11/24 22:00 12/11/24 22:00 12/11/24 22:00 Temperature Pulse Rate 80 77 80 Respiratory Rate 27 H Blood Pressure 114/70 114/70 Pulse Oximetry 96 Oxygen Delivery Oxygen Flow Rate Fraction of Inspired Oxygen 12/12/24 00:00 12/12/24 00:00 12/12/24 00:00 Temperature 97.4 F L Pulse Rate 77 77 Respiratory Rate 27 H Blood Pressure 113/70 113/70 Pulse Oximetry 96 96 Oxygen Delivery Nasal Cannula Oxygen Flow Rate 2 Fraction of Inspired Oxygen 12/12/24 00:00 12/12/24 02:00 12/12/24 02:00 Temperature Pulse Rate 78 75 75 Respiratory Rate Blood Pressure 119/79 Pulse Oximetry Oxygen Delivery Oxygen Flow Rate Fraction of Inspired Oxygen 12/12/24 02:00 12/12/24 02:06 12/12/24 02:13 Temperature Pulse Rate 76 79 79 Respiratory Rate 20 Blood Pressure 119/79 116/70 116/70 Pulse Oximetry 96 Oxygen Delivery Oxygen Flow Rate Fraction of Inspired Oxygen 12/12/24 04:00 12/12/24 04:00 12/12/24 04:00 Temperature 97.3 F L Pulse Rate 78 78 Respiratory Rate 20 Blood Pressure 117/71 117/71 Pulse Oximetry 100 99 Oxygen Delivery Nasal Cannula Oxygen Flow Rate 2 Fraction of Inspired Oxygen 12/12/24 04:00 12/12/24 06:00 12/12/24 06:00 Temperature Pulse Rate 73 80 80 Respiratory Rate 26 H Blood Pressure 113/64 Pulse Oximetry 100 Oxygen Delivery Oxygen Flow Rate Fraction of Inspired Oxygen 12/12/24 06:00 12/12/24 07:43 12/12/24 07:57 Temperature Pulse Rate 80 75 75 Respiratory Rate Blood Pressure 113/64 114/63 114/63 Pulse Oximetry Oxygen Delivery Oxygen Flow Rate Fraction of Inspired Oxygen 12/12/24 08:00 12/12/24 08:00 12/12/24 08:00 Temperature 97.5 F L Pulse Rate 83 83 83 Respiratory Rate 24 H 24 H Blood Pressure 114/63 Pulse Oximetry 100 100 Oxygen Delivery Nasal Cannula Oxygen Flow Rate 2 Fraction of Inspired Oxygen 28 12/12/24 08:41 12/12/24 09:49 12/12/24 10:00 Temperature Pulse Rate 78 77 77 Respiratory Rate Blood Pressure 109/69 Pulse Oximetry Oxygen Delivery Oxygen Flow Rate Fraction of Inspired Oxygen 12/12/24 10:00 12/12/24 12:00 12/12/24 12:00 Temperature 97.6 F Pulse Rate 77 82 82 Respiratory Rate 27 H 24 H Blood Pressure 107/78 Pulse Oximetry 97 96 Oxygen Delivery Nasal Cannula Oxygen Flow Rate 2 Fraction of Inspired Oxygen 12/12/24 12:00 12/12/24 12:00 Temperature 98.1 F Pulse Rate 82 82 Respiratory Rate 22 H Blood Pressure 91/70 L 91/70 L Pulse Oximetry 96 Oxygen Delivery Oxygen Flow Rate Fraction of Inspired Oxygen Intake/Output Intake/Output: Intake & Output 12/09/24 12/10/24 12/11/24 12/12/24 23:59 23:59 23:59 23:59 Intake Total 2409.2 2300.5 1449.8 1546.6 Output Total 925 275 700 400 Balance 1484.2 2025.5 749.8 1146.6 Meds/Results Medications: Active Medications Generic Name Dose Route Start Last Admin Trade Name Freq PRN Reason Stop Dose Admin Acetaminophen 650 mg 12/04/24 22:10 Acetaminophen 325 Mg Tablet PO Q4H PRN Mild Pain (1-3) or Fever Hydrocodone Bitart/Acetaminophen 1 tab 12/05/24 01:36 12/11/24 00:25 Hydrocodone/Acetaminophen (*Crx) 5-325 Mg Tablet PO 1 tab Q8H PRN Administration pain 7-10 Albuterol/Ipratropium 3 ml 12/06/24 08:00 12/09/24 21:08 Ipratropium 0.5 Mg/Albuterol Sulfate 2.5 Mg Ampul.Neb 3 Ml INHALATION 3 ml Q6HRT PRN Administration wheezine Amiodarone HCl 400 mg 12/07/24 09:15 12/12/24 08:41 Amiodarone Hcl 200 Mg Tablet PO 400 mg DAILY@0800 KRISTEN Administration Apixaban 5 mg 12/09/24 21:00 12/09/24 20:20 Apixaban 5 Mg Tablet PO 5 mg Q12HR KRISTEN Administration Atorvastatin Calcium 20 mg 12/05/24 09:00 12/12/24 08:42 Atorvastatin 20 Mg Tablet PO 20 mg DAILY KRISTEN Administration Bumetanide 1 mg 12/12/24 21:00 Bumetanide Inj 1 Mg/4 Ml Vial IV PUSH Q12H KRISTEN Docusate Sodium 100 mg 12/10/24 09:00 12/12/24 08:42 Docusate Sodium 100 Mg Capsule PO 100 mg Q12HR KRISTEN Administration Dobutamine HCl/Dextrose 250 mg in 250 mls @ 30.3 mls/hr 12/06/24 07:55 12/12/24 12:00 Dobutamine 250 Mg/D5w 250 Ml IV CONT 5 mcg/kg/min .Q8H16M KRISTEN 30.3 mls/hr Infusion 5 MCG/KG/MIN Albumin Human 100 mls @ 60 mls/hr 12/11/24 21:00 12/12/24 10:22 Albutein IVPB Infused Q12HR KRISTEN Infusion Levothyroxine Sodium 50 mcg 12/08/24 08:15 12/12/24 05:13 Levothyroxine Sodium 50 Mcg Tablet PO 50 mcg DAILY@0630 KRISTEN Administration Losartan Potassium 12.5 mg 12/13/24 09:00 Losartan Potassium 12.5 Mg Tablet PO DAILY KRISTEN Pantoprazole Sodium 40 mg 12/10/24 21:00 12/12/24 08:42 Pantoprazole Sodium Iv 40 Mg Vial IV PUSH 40 mg Q12HR KRISTEN Administration Polyethylene Glycol 17 gm 12/10/24 09:00 12/12/24 08:42 Polyethylene Glycol 3350 17 Gm Powd.Pack PO 17 gm QAM KRISTEN Administration Fluticasone/Salmeterol 2 puff 12/05/24 08:00 12/12/24 07:50 Fluticasone/Salmeterol 115-21 Mcg Inhaler 1 Puff INHALATION Not Given Q12HRT KRISTEN Sodium Chloride 10 ml 12/05/24 14:00 12/12/24 05:23 Central Line Flush IV PUSH 10 ml Q8HR KRISTEN Administration Sodium Chloride 10 ml 12/05/24 11:12 Central Line Flush IV PUSH PRN PRN with TPN bag changes Sodium Chloride 20 ml 12/05/24 11:12 12/10/24 05:36 Central Line Flush IV PUSH 20 ml PRN PRN Administration after blood draws Radiology Results: ITS Impressions Renal Ultrasound 12/05/24 15:17 IMPRESSION: No hydronephrosis or renal calculi. Findings suggesting medical renal disease. Chest CT 12/05/24 15:24 IMPRESSION: Findings consistent with pulmonary edema with a small right-sided pleural effusion. Additional findings worrisome for pulmonary hypertension, as detailed above. Trace anasarca. Intra-abdominal ascites Venous Doppler Study 12/05/24 16:06 IMPRESSION: Negative bilateral lower extremity venous US. No deep vein thrombosis. Chest X-Ray 12/12/24 05:36 Impression: Probable mild pulmonary edema pattern. Right-sided PICC line. Stable cardiomegaly with pacemaker device. Labs Labs: Laboratory Results - last 24 hr 12/12/24 05:22 WBC 8.1 RBC 3.85 L Hgb 10.8 L Hct 35.2 L MCV 91.4 MCH 28.1 MCHC 30.7 L RDW 16.9 H Plt Count 86 L MPV 9.4 Immature Gran % (Auto) 0.5 Neut % (Auto) 83.6 H Lymph % (Auto) 7.7 L [place] % (Auto) 8.2 Eos % (Auto) 0.0 Baso % (Auto) 0.0 L Lymph # (Auto) 0.62 L [place] # (Auto) 0.7 H Eos # (Auto) 0.0 Baso # (Auto) 0.0 Abs Immat Gran (auto) 0.04 H Absolute Neuts (auto) 6.8 H Absolute Nucleated RBC 0.000 Nucleated RBC % 0.0 % Immature Plt Fraction 2.8 Sodium 127 L Potassium 5.0 Chloride 89 L Carbon Dioxide 23 Anion Gap 15 H BUN 64 H Creatinine 2.62 H Estim Creat Clear Calc 25 Estimated GFR 19 L Glucose 84 Lactic Acid 1.1 Calcium 10.4 H Phosphorus 3.7 Magnesium 2.4 H Total Bilirubin 4.2 H AST 45 H ALT 74 H Alkaline Phosphatase 61 Total Protein 7.7 Albumin 5.1 Quality VTE Prophylaxis VTE prophylaxis: pharmacologic ordered
[2024-12-12] MEDS: DOBUTamine 250 MG/D5W 250 ML 250 MG/250 ML BAG 30.3 MG IV CONT ×2 (14:53→22:44)
[2024-12-12] MEDS: FLUTICASONE/SALMETEROL 115-21 MCG INHALER 1 PUFF 2 PUFF INHALATION (20:50)
[2024-12-12] MEDS: BUMETANIDE INJ 1 MG/4 ML VIAL IV PUSH (21:00)
[2024-12-12] MEDS: HYDROcodone/acetaminophen (*CRX) 5-325 MG TABLET 1 TAB PO (21:00)
[2024-12-13] VITALS (17 sets, daily range): BP systolic 87–116; BP diastolic 35–97; PULSE 68–84; RESP 14–24; TEMP 36.2–36.7; O2SAT 96–100
[2024-12-13] MEDS: CENTRAL LINE FLUSH 10 ML IV PUSH ×3 (06:08→21:38)
[2024-12-13] MEDS: LEVOTHYROXINE SODIUM 50 MCG TABLET PO (06:08)
[2024-12-13] MEDS: DOBUTamine 250 MG/D5W 250 ML 250 MG/250 ML BAG 30.3 MG IV CONT ×2 (07:15→14:24)
[2024-12-13] MEDS: AMIODARONE HCL 200 MG TABLET 400 MG PO (08:01)
[2024-12-13] MEDS: ATORVASTATIN 20 MG TABLET PO (08:46)
[2024-12-13] MEDS: polyethylene glycoL 3350 17 GM POWD.PACK PO (08:46)
[2024-12-13] MEDS: PANTOPRAZOLE SODIUM IV 40 MG VIAL IV PUSH ×2 (08:46→21:38)
[2024-12-13] MEDS: LOSARTAN POTASSIUM 12.5 MG TABLET PO (08:46)
[2024-12-13] MEDS: DOCUSATE SODIUM 100 MG CAPSULE PO ×2 (08:46→21:38)
--- NOTE | 2024-12-13 10:23 | P.PNNP_ITS ---
Progress Note: A&P Assessment and Plan (1) Acute kidney injury: Code(s): N17.9 - Acute kidney failure, unspecified Status: Acute Assessment and Plan: * creatinine levels have been rising gradually for the last couple of days. Today's labs are pending * Creatinine has been gradually worsening over the last 4 years. The last creatinine in this system as an outpatient was 2.18. However earlier this year her creatinine was 1.6-1.75 at [facility] as noted below. * suspect multifactorial: * hemodynamic instability/hypotension * decompensated heart failure * use of ARB and diuretics prior to admission * Afib with RVR * infection -- less likely * other (?) * evaluation to date noted: * renal ultrasound with medical renal disease * urine electrolytes prerenal (indicative of depressed EF given volume overloaded state) * urine eosinophils negative * CPK mildly elevated (but not enough to affect kidney function) * moderate proteinuria (~ 900mg) * suspect due to cardiorenal syndrome worsened by hemodynamic instability/severe hypotension * Her creatinine is gradually worse. She does not have any uremic symptoms. * She is making very little urine in spite of Bumex drip and now intermittent B umex. She does need fluid off. It is possible that renal venous hypertension might be worsening kidney function and if we can just get some fluid off her renal function may improve. Because of her severely poor ejection fraction, she is at high risk of dropping her blood pressure if we take fluid off very quickly, such as with intermittent dry ultrafiltration. I think she would be best served with slow continuous ultrafiltration. We do not do that here unfortunately. Long discussion with Dr. Piña and with Dr. Allen. * follow repeat labs and UOP (2) Stage 3b chronic kidney disease: Code(s): N18.32 - Chronic kidney disease, stage 3b Status: Acute Assessment and Plan: * creatinine running around 1.60 - 1.75mg/dl during September 2024 hospitalization at [facility] * earlier this month creatinine was noted to be 2.18mg/dl * creatinine in September 2023 was running 1.2 - 1.3mg/dl * suspect underlying CKD due cardiorenal syndrome given depressed EF/cardiomyopathy (3) Shortness of breath: Code(s): R06.02 - Shortness of breath Status: Acute Assessment and Plan: * due to several issues: * volume overload * acute on chronic CHF/cardiomyopathy * atrial fibrillation with RVR * possible pneumonia (less likely) * other (?) * no evidence of acute respiratory distress * on home oxygen * She is currently on 2.5L of oxygen by nasal cannula. * CT of chest without infiltrates or pneumonia; evidence of pulmonary edema noted * antibiotics dc'd * continue attempts at diuresis * follow respiratory status (4) Acute on chronic systolic heart failure: Code(s): I50.23 - Acute on chronic systolic (congestive) heart failure Status: Acute Assessment and Plan: * as suggested by imaging, labs, and exam * Echo (09/27/24) at [facility] noted: * ejection fraction is visually estimated to be 10-15% * diastolic function E to E' ratio is >15 suggesting a high pulminary wedge pressure and LV diastolic dysfunction * no obvious thrombus noted * mildly dilated right and left atrium. * mild tricuspid regurgitation * estimated right ventricular systolic pressure is 33 mmHg * IVC is dilated * estimated RA pressure is 8 mmHg * normal cardiac catheterization noted (September 2024) * institution of GMDT was limited by hypotension during September 2024 hospitalization * Cardiology following * repeat Echo (12/05) reviewed: * four-chamber dilated cardiomyopathy * profound left and right ventricular systolic dysfunction ejection fraction 10-15% * mild MR resulting from annular dilation * mild aortic valve sclerosis * moderate to severe tricuspid valve regurgitation * moderate pulmonary hypertension, estimated pulmonary arterial systolic pressure is 57 mmHg * on dobutamine + IV diuretics. Albumin up to 5.1 so and no more albumin is being given. * however, not in negative fluid balance * CXR results noted (5) Hypotension: Code(s): I95.9 - Hypotension, unspecified Status: Acute Assessment and Plan: * as noted since admission * probably related to severity of her cardiomyopathy (cardiogenic shock) * remains on dobutamine gtt * weaned off levophed * give lowish cortisol, stress dose steroids added * wean as tolerated * follow trend of hemodynamics (6) Atrial fibrillation with RVR: Code(s): I48.91 - Unspecified atrial fibrillation Status: Acute Assessment and Plan: * noted again but rate controlled * off amiodarone gtt at this time * on oral amiodarone * repeat Echo noted (see #4) * Cardiology following * on anticoagulation (Eliquis) (7) Hyponatremia: Code(s): E87.1 - Hypo-osmolality and hyponatremia Status: Acute Assessment and Plan: * continues to fluctuate * presumably related to chronic CHF along with SANDRA/CKD and hypervolemia * sodium was running around 133 - 137 during September 2024 hospitalization at [facility] * evaluation noted: * TSH okay * cortisol on the lower end (but on steroids at this time) * urine electrolytes noted * SPEP with possible M-spike; UPEP pending * serum osmolality 288; urine osmolality 237 * serum/urine immunofixation pending * Most likely due to the very poor ejection fraction and severe pre renal azotemia. * Follow trend of repeat sodiums * Sodium level 127 yesterday. Today's is pending. * Will start fluid restriction (8) Lower extremity edema: Code(s): R60.0 - Localized edema Status: Acute Assessment and Plan: * localized to her lower extremities * likely a manifestation of chronic CHF and current SANDRA on CKD * lower extremity dopplers negative * diuresis as tolerated * consider DARRYL-wraps/compression stocking and LE elevation Subjective Date/time seen: 12/13/24 10:23 Interval history: The patient is feeling okay today. Sitting upright in bed. Breathing is about the same. She is swollen but this is about her usual she says ?I just want to go home. I am tired of being here ? Exam Narrative: General: WD/WN female in NAD Heart: normal S1 and S2; no rub or gallop Lungs: coarse with a few bibasilar crackles Abdomen: soft, nontender, nondistended, positive bowel sounds Extremities: 1 - 2+ edema Skin: no nodules or rash Objective Data Vital Signs Vital Signs: Vital Signs - 24 hr 12/12/24 12:12/12/24 12:12/12/24 12:00 Temperature 98.1 F Pulse Rate 82 82 82 Respiratory Rate 24 H 22 H Blood Pressure 91/70 L Pulse Oximetry 96 96 Oxygen Delivery Nasal Cannula Oxygen Flow Rate 2 Fraction of Inspired Oxygen 28 12/12/24 12:12/12/24 14:00 12/12/24 14:00 Temperature 98.1 F Pulse Rate 82 72 72 Respiratory Rate 24 H Blood Pressure 91/70 L 98/86 L Pulse Oximetry 100 Oxygen Delivery Oxygen Flow Rate Fraction of Inspired Oxygen 12/12/24 14:00 12/12/24 14:53 12/12/24 14:53 Temperature Pulse Rate 72 76 76 Respiratory Rate Blood Pressure 98/86 L 101/63 101/63 Pulse Oximetry Oxygen Delivery Oxygen Flow Rate Fraction of Inspired Oxygen 12/12/24 16:00 12/12/24 16:00 12/12/24 16:00 Temperature 97.8 F Pulse Rate 76 76 76 Respiratory Rate 22 H 22 H Blood Pressure 116/73 Pulse Oximetry 100 100 Oxygen Delivery Nasal Cannula Oxygen Flow Rate 2 Fraction of Inspired Oxygen 28 12/12/24 16:00 12/12/24 18:00 12/12/24 18:00 Temperature Pulse Rate 76 81 77 Respiratory Rate 22 H Blood Pressure 116/73 98/64 L Pulse Oximetry 98 Oxygen Delivery Oxygen Flow Rate Fraction of Inspired Oxygen 12/12/24 18:00 12/12/24 20:00 12/12/24 20:00 Temperature Pulse Rate 76 78 78 Respiratory Rate 22 H Blood Pressure 98/64 L Pulse Oximetry 98 Oxygen Delivery Nasal Cannula Oxygen Flow Rate 2 Fraction of Inspired Oxygen 12/12/24 20:00 12/12/24 20:00 12/12/24 22:00 Temperature 98.3 F Pulse Rate 75 74 72 Respiratory Rate 16 Blood Pressure 113/65 113/65 Pulse Oximetry 95 Oxygen Delivery Oxygen Flow Rate Fraction of Inspired Oxygen 12/12/24 22:00 12/12/24 22:44 12/12/24 22:44 Temperature 97.6 F Pulse Rate 77 72 72 Respiratory Rate 20 Blood Pressure 104/63 114/77 114/77 Pulse Oximetry 96 Oxygen Delivery Oxygen Flow Rate Fraction of Inspired Oxygen 12/13/24 00:00 12/13/24 00:00 12/13/24 00:00 Temperature 97.6 F Pulse Rate 78 78 73 Respiratory Rate 20 21 H Blood Pressure 106/62 Pulse Oximetry 96 97 Oxygen Delivery Nasal Cannula Oxygen Flow Rate 2 Fraction of Inspired Oxygen 12/13/24 00:00 12/13/24 02:00 12/13/24 02:00 Temperature Pulse Rate 73 73 73 Respiratory Rate Blood Pressure 106/62 111/86 Pulse Oximetry Oxygen Delivery Oxygen Flow Rate Fraction of Inspired Oxygen 12/13/24 02:00 12/13/24 04:00 12/13/24 04:00 Temperature 97.4 F L Pulse Rate 73 68 68 Respiratory Rate 16 18 Blood Pressure 111/86 116/66 Pulse Oximetry 100 100 Oxygen Delivery Nasal Cannula Oxygen Flow Rate 2 Fraction of Inspired Oxygen 12/13/24 04:00 12/13/24 04:00 12/13/24 06:00 Temperature 97.4 F L Pulse Rate 68 68 78 Respiratory Rate 18 Blood Pressure 116/66 Pulse Oximetry 100 Oxygen Delivery Oxygen Flow Rate Fraction of Inspired Oxygen 12/13/24 06:00 12/13/24 07:00 12/13/24 07:15 Temperature 97.4 F L Pulse Rate 78 76 76 Respiratory Rate 21 H Blood Pressure 97/35 L 97/35 L 97/35 L Pulse Oximetry 100 Oxygen Delivery Oxygen Flow Rate Fraction of Inspired Oxygen 12/13/24 08:00 12/13/24 08:00 12/13/24 08:00 Temperature 97.1 F L Pulse Rate 75 75 78 Respiratory Rate 24 H 24 H Blood Pressure 111/69 Pulse Oximetry 100 100 Oxygen Delivery Nasal Cannula Oxygen Flow Rate 2 Fraction of Inspired Oxygen 28 12/13/24 08:01 12/13/24 09:22 12/13/24 10:00 Temperature 97.6 F Pulse Rate 78 84 Respiratory Rate 19 Blood Pressure 107/68 Pulse Oximetry 100 100 Oxygen Delivery Nasal Cannula Oxygen Flow Rate 2.5 Fraction of Inspired Oxygen Intake/Output Intake/Output: Intake & Output 12/10/24 12/11/24 12/12/24 12/13/24 23:59 23:59 23:59 23:59 Intake Total 2300.5 1449.8 2211.8 670.0 Output Total 275 700 825 425 Balance 2025.5 749.8 1386.8 245.0 Meds/Results Medications: Active Medications Generic Name Dose Route Start Last Admin Trade Name Freq PRN Reason Stop Dose Admin Acetaminophen 650 mg 12/04/24 22:10 Acetaminophen 325 Mg Tablet PO Q4H PRN Mild Pain (1-3) or Fever Hydrocodone Bitart/Acetaminophen 1 tab 12/05/24 01:36 12/12/24 21:00 Hydrocodone/Acetaminophen (*Crx) 5-325 Mg Tablet PO 1 tab Q8H PRN Administration pain 7-10 Albuterol/Ipratropium 3 ml 12/06/24 08:00 12/09/24 21:08 Ipratropium 0.5 Mg/Albuterol Sulfate 2.5 Mg Ampul.Neb 3 Ml INHALATION 3 ml Q6HRT PRN Administration wheezine Amiodarone HCl 400 mg 12/07/24 09:15 12/13/24 08:01 Amiodarone Hcl 200 Mg Tablet PO 400 mg DAILY@0800 KRISTEN Administration Apixaban 5 mg 12/09/24 21:00 12/09/24 20:20 Apixaban 5 Mg Tablet PO 5 mg Q12HR KRISTEN Administration Atorvastatin Calcium 20 mg 12/05/24 09:00 12/13/24 08:46 Atorvastatin 20 Mg Tablet PO 20 mg DAILY KRISTEN Administration Bumetanide 1 mg 12/12/24 21:00 12/12/24 21:00 Bumetanide Inj 1 Mg/4 Ml Vial IV PUSH 1 mg Q12H KRISTEN Administration Docusate Sodium 100 mg 12/10/24 09:00 12/13/24 08:46 Docusate Sodium 100 Mg Capsule PO 100 mg Q12HR KRISTEN Administration Dobutamine HCl/Dextrose 250 mg in 250 mls @ 30.3 mls/hr 12/06/24 07:55 12/13/24 07:15 Dobutamine 250 Mg/D5w 250 Ml IV CONT 5 mcg/kg/min .Q8H16M KRISTEN 30.3 mls/hr Administration 5 MCG/KG/MIN Levothyroxine Sodium 50 mcg 12/08/24 08:15 12/13/24 06:08 Levothyroxine Sodium 50 Mcg Tablet PO 50 mcg DAILY@0630 KRISTEN Administration Losartan Potassium 12.5 mg 12/13/24 09:00 12/13/24 08:46 Losartan Potassium 12.5 Mg Tablet PO 12.5 mg DAILY KRISTEN Administration Pantoprazole Sodium 40 mg 12/10/24 21:00 12/13/24 08:46 Pantoprazole Sodium Iv 40 Mg Vial IV PUSH 40 mg Q12HR KRISTEN Administration Polyethylene Glycol 17 gm 12/10/24 09:00 12/13/24 08:46 Polyethylene Glycol 3350 17 Gm Powd.Pack PO 17 gm QAM KRISTEN Administration Fluticasone/Salmeterol 2 puff 12/05/24 08:00 12/13/24 09:23 Fluticasone/Salmeterol 115-21 Mcg Inhaler 1 Puff INHALATION Not Given Q12HRT KRISTEN Sodium Chloride 10 ml 12/05/24 14:00 06/27/25 06:08 Central Line Flush IV PUSH 10 ml Q8HR KRISTEN Administration Sodium Chloride 10 ml 12/05/24 11:12 Central Line Flush IV PUSH PRN PRN with TPN bag changes Sodium Chloride 20 ml 12/05/24 11:12 12/10/24 05:36 Central Line Flush IV PUSH 20 ml PRN PRN Administration after blood draws Radiology Results: ITS Impressions Renal Ultrasound 12/05/24 15:17 IMPRESSION: No hydronephrosis or renal calculi. Findings suggesting medical renal disease. Chest CT 12/05/24 15:24 IMPRESSION: Findings consistent with pulmonary edema with a small right-sided pleural effusion. Additional findings worrisome for pulmonary hypertension, as detailed above. Trace anasarca. Intra-abdominal ascites Venous Doppler Study 12/05/24 16:06 IMPRESSION: Negative bilateral lower extremity venous US. No deep vein thrombosis. Chest X-Ray 12/12/24 05:36 Impression: Probable mild pulmonary edema pattern. Right-sided PICC line. Stable cardiomegaly with pacemaker device. Labs Labs: Laboratory Results - last 24 hr 12/10/24 16:23 Urine Immunofixation
--- NOTE | 2024-12-13 10:39 | PM.PNCARD ---
Progress Note: A&P Assessment and Plan (1) CHF (congestive heart failure): Qualifiers: Heart failure type: unspecified Heart failure chronicity: acute Qualified Code(s): I50.9 - Heart failure, unspecified Code(s): I50.9 - Heart failure, unspecified Status: Acute (2) Atrial fibrillation with RVR: Code(s): I48.91 - Unspecified atrial fibrillation Status: Acute (3) Hyperlipidemia: Code(s): E78.5 - Hyperlipidemia, unspecified Status: Acute Plan 54-year-old woman with chronic systolic heart failure (LVEF 10-50% in 09/2024 worsened compared to 09/2023 which was 20-25%) status post dual-chamber ICD, paroxysmal atrial fibrillation (not on anticoagulation due to frequent nosebleeds and low atrial fibrillation burden on device checks), hypertension, hyperlipidemia, and history of VT was admitted for shortness of breath found to be in acute decompensated systolic heart failure Acute decompensated heart failure with reduced LVEF -Continue Dobutamine drip -Continue Bumex -Continue Losartan -Will try to increase heart failure GDMT as tolerated -May benefit from CRRT -- may not tolerate intermittent HD per Nephro. -At this point, recommend transfer to tertiary center for Advanced Heart Failure evaluation. Also, if she does need CRRT, unable to do so at this institution. Paroxysmal atrial fibrillation -Continue amiodarone 400 mg p.o. daily for now and 200 mg p.o. daily at discharge History of ventricular tachycardia -Status post ICD and would recommend Bi V upgrade given her worsening systolic heart failure in outpatient setting -Continue amiodarone Hyperlipidemia -continue atorvastatin 20 mg every evening Plan of care discussed with ICU Physician and Nephro. Subjective Date/time seen: 12/13/24 10:39 Interval history: Reason for visit: CHF Breathing is the same. Poor urine output. Review of Systems Cardiovascular: Cardiovascular: Reports as per HPI Exam Const: General: no acute distress HENMT: Mouth: Yes moist mucous membranes Eyes: General: appearance normal, both eyes and all related structures Sclera: sclerae normal Resp: Other: On supplemental oxygen. Has increased work of breathing during conversations. Cardio: Rate: regular rate Rhythm: regular rhythm Other: + Bilateral lower extremity edema Skin: General skin exam: normal color Neuro: Speech: normal speech Psych: Mental Status: mental status grossly normal Affect: normal affect Objective Data Vital Signs Vital Signs: Vital Signs - 24 hr 12/12/24 12:00 12/12/24 12:00 12/12/24 12:00 Temperature 36.7 C Pulse Rate 82 82 82 Respiratory Rate 24 H 22 H Blood Pressure 91/70 L Pulse Oximetry 96 96 Oxygen Delivery Nasal Cannula Oxygen Flow Rate 2 Fraction of Inspired Oxygen 28 12/12/24 12:00 12/12/24 14:00 12/12/24 14:00 Temperature 36.7 C Pulse Rate 82 72 72 Respiratory Rate 24 H Blood Pressure 91/70 L 98/86 L Pulse Oximetry 100 Oxygen Delivery Oxygen Flow Rate Fraction of Inspired Oxygen 12/12/24 14:00 12/12/24 14:53 12/12/24 14:53 Temperature Pulse Rate 72 76 76 Respiratory Rate Blood Pressure 98/86 L 101/63 101/63 Pulse Oximetry Oxygen Delivery Oxygen Flow Rate Fraction of Inspired Oxygen 12/12/24 16:00 12/12/24 16:00 12/12/24 16:00 Temperature 36.6 C Pulse Rate 76 76 76 Respiratory Rate 22 H 22 H Blood Pressure 116/73 Pulse Oximetry 100 100 Oxygen Delivery Nasal Cannula Oxygen Flow Rate 2 Fraction of Inspired Oxygen 28 12/12/24 16:00 12/12/24 18:00 12/12/24 18:00 Temperature Pulse Rate 76 81 77 Respiratory Rate 22 H Blood Pressure 116/73 98/64 L Pulse Oximetry 98 Oxygen Delivery Oxygen Flow Rate Fraction of Inspired Oxygen 12/12/24 18:00 12/12/24 20:00 12/12/24 20:00 Temperature Pulse Rate 76 78 78 Respiratory Rate 22 H Blood Pressure 98/64 L Pulse Oximetry 98 Oxygen Delivery Nasal Cannula Oxygen Flow Rate 2 Fraction of Inspired Oxygen 12/12/24 20:00 12/12/24 20:00 12/12/24 22:00 Temperature 36.8 C Pulse Rate 75 74 72 Respiratory Rate 16 Blood Pressure 113/65 113/65 Pulse Oximetry 95 Oxygen Delivery Oxygen Flow Rate Fraction of Inspired Oxygen 12/12/24 22:00 12/12/24 22:44 12/12/24 22:44 Temperature 36.4 C Pulse Rate 77 72 72 Respiratory Rate 20 Blood Pressure 104/63 114/77 114/77 Pulse Oximetry 96 Oxygen Delivery Oxygen Flow Rate Fraction of Inspired Oxygen 12/13/24 00:00 12/13/24 00:00 12/13/24 00:00 Temperature 36.4 C Pulse Rate 78 78 73 Respiratory Rate 20 21 H Blood Pressure 106/62 Pulse Oximetry 96 97 Oxygen Delivery Nasal Cannula Oxygen Flow Rate 2 Fraction of Inspired Oxygen 12/13/24 00:00 12/13/24 02:00 12/13/24 02:00 Temperature Pulse Rate 73 73 73 Respiratory Rate Blood Pressure 106/62 111/86 Pulse Oximetry Oxygen Delivery Oxygen Flow Rate Fraction of Inspired Oxygen 12/13/24 02:00 12/13/24 04:00 12/13/24 04:00 Temperature 36.3 C L Pulse Rate 73 68 68 Respiratory Rate 16 18 Blood Pressure 111/86 116/66 Pulse Oximetry 100 100 Oxygen Delivery Nasal Cannula Oxygen Flow Rate 2 Fraction of Inspired Oxygen 12/13/24 04:00 12/13/24 04:00 12/13/24 06:00 Temperature 36.3 C L Pulse Rate 68 68 78 Respiratory Rate 18 Blood Pressure 116/66 Pulse Oximetry 100 Oxygen Delivery Oxygen Flow Rate Fraction of Inspired Oxygen 12/13/24 06:00 12/13/24 07:00 12/13/24 07:15 Temperature 36.3 C L Pulse Rate 78 76 76 Respiratory Rate 21 H Blood Pressure 97/35 L 97/35 L 97/35 L Pulse Oximetry 100 Oxygen Delivery Oxygen Flow Rate Fraction of Inspired Oxygen 12/13/24 08:00 12/13/24 08:00 12/13/24 08:00 Temperature 36.2 C L Pulse Rate 75 75 78 Respiratory Rate 24 H 24 H Blood Pressure 111/69 Pulse Oximetry 100 100 Oxygen Delivery Nasal Cannula Oxygen Flow Rate 2 Fraction of Inspired Oxygen 12/13/24 08:01 12/13/24 09:22 12/13/24 10:00 Temperature 36.4 C Pulse Rate 78 84 Respiratory Rate 19 Blood Pressure 107/68 Pulse Oximetry 100 100 Oxygen Delivery Nasal Cannula Oxygen Flow Rate 2.5 Fraction of Inspired Oxygen Intake/Output Intake/Output: Intake & Output 12/10/24 12/11/24 12/12/24 12/13/24 23:59 23:59 23:59 23:59 Intake Total 2300.5 1449.8 2211.8 670.0 Output Total 275 700 825 425 Balance 2025.5 749.8 1386.8 245.0 Meds/Results Medications: Active Medications Generic Name Dose Route Start Last Admin Trade Name Freq PRN Reason Stop Dose Admin Acetaminophen 650 mg 12/04/24 22:10 Acetaminophen 325 Mg Tablet PO Q4H PRN Mild Pain (1-3) or Fever Hydrocodone Bitart/Acetaminophen 1 tab 12/05/24 01:36 12/12/24 21:00 Hydrocodone/Acetaminophen (*Crx) 5-325 Mg Tablet PO 1 tab Q8H PRN Administration pain 7-10 Albuterol/Ipratropium 3 ml 12/06/24 08:00 12/09/24 21:08 Ipratropium 0.5 Mg/Albuterol Sulfate 2.5 Mg Ampul.Neb 3 Ml INHALATION 3 ml Q6HRT PRN Administration wheezine Amiodarone HCl 400 mg 12/07/24 09:15 12/13/24 08:01 Amiodarone Hcl 200 Mg Tablet PO 400 mg DAILY@0800 KRISTEN Administration Apixaban 5 mg 12/09/24 21:00 12/09/24 20:20 Apixaban 5 Mg Tablet PO 5 mg Q12HR KRISTEN Administration Atorvastatin Calcium 20 mg 12/05/24 09:00 12/13/24 08:46 Atorvastatin 20 Mg Tablet PO 20 mg DAILY KRISTEN Administration Bumetanide 1 mg 12/12/24 21:00 12/12/24 21:00 Bumetanide Inj 1 Mg/4 Ml Vial IV PUSH 1 mg Q12H KRISTEN Administration Docusate Sodium 100 mg 12/10/24 09:00 12/13/24 08:46 Docusate Sodium 100 Mg Capsule PO 100 mg Q12HR KRISTEN Administration Dobutamine HCl/Dextrose 250 mg in 250 mls @ 30.3 mls/hr 12/06/24 07:55 12/13/24 07:15 Dobutamine 250 Mg/D5w 250 Ml IV CONT 5 mcg/kg/min .Q8H16M KRISTEN 30.3 mls/hr Administration 5 MCG/KG/MIN Levothyroxine Sodium 50 mcg 12/08/24 08:15 12/13/24 06:08 Levothyroxine Sodium 50 Mcg Tablet PO 50 mcg DAILY@0630 KRISTEN Administration Losartan Potassium 12.5 mg 12/13/24 09:00 12/13/24 08:46 Losartan Potassium 12.5 Mg Tablet PO 12.5 mg DAILY KRISTEN Administration Pantoprazole Sodium 40 mg 06/24/25 21:00 12/13/24 08:46 Pantoprazole Sodium Iv 40 Mg Vial IV PUSH 40 mg Q12HR KRISTEN Administration Polyethylene Glycol 17 gm 12/10/24 09:00 12/13/24 08:46 Polyethylene Glycol 3350 17 Gm Powd.Pack PO 17 gm QAM KRISTEN Administration Fluticasone/Salmeterol 2 puff 12/05/24 08:00 12/13/24 09:23 Fluticasone/Salmeterol 115-21 Mcg Inhaler 1 Puff INHALATION Not Given Q12HRT KRISTEN Sodium Chloride 10 ml 12/05/24 14:00 12/13/24 06:08 Central Line Flush IV PUSH 10 ml Q8HR KRISTEN Administration Sodium Chloride 10 ml 12/05/24 11:12 Central Line Flush IV PUSH PRN PRN with TPN bag changes Sodium Chloride 20 ml 12/05/24 11:12 12/10/24 05:36 Central Line Flush IV PUSH 20 ml PRN PRN Administration after blood draws Radiology Results: ITS Impressions Renal Ultrasound 12/05/24 15:17 IMPRESSION: No hydronephrosis or renal calculi. Findings suggesting medical renal disease. Chest CT 12/05/24 15:24 IMPRESSION: Findings consistent with pulmonary edema with a small right-sided pleural effusion. Additional findings worrisome for pulmonary hypertension, as detailed above. Trace anasarca. Intra-abdominal ascites Venous Doppler Study 12/05/24 16:06 IMPRESSION: Negative bilateral lower extremity venous US. No deep vein thrombosis. Chest X-Ray 12/12/24 05:36 Impression: Probable mild pulmonary edema pattern. Right-sided PICC line. Stable cardiomegaly with pacemaker device. Labs Labs: Laboratory Results - last 24 hr 12/10/24 16:23 Urine Immunofixation
--- NOTE | 2024-12-13 11:13 | PCFNICU ---
ICU Rounding Note: Pt current nutrition is Heart healthy diet with Ensure HP+ BID (350 kcal, 20 g protein). Nutrition recommendation: No new recommendations. Continue with current orders. Agree with orders Last recorded weight is 107.1 kg. Bowel Motility: No BMs are recorded Labs Reviewed: No lab results today Meds Noted: Bumex, dobutamine Skin: No skin issues Additional Notes: Pt is talking about hospice. Continue to monitor. Agree with orders Following daily in ICU rounds. Monitoring intakes, weights, labs, output, supplement tolerance, plan of care Follow up in 5 days. Daily rounds.
[2024-12-13 11:25] LABS: Eosinophils Absolute Auto 0.1 K/mm3 (0-0.3); Eosinophils Percent Auto 0.8 % (0-4.4); Hematocrit 37.5 % (37.0-47.0); Hemoglobin 11.5 g/dL (12.0-15.0); Immature Granulocyte Absolute 0.04 K/mm3 (0.00-0.031); Immature Granulocyte Percent A 0.4 % (0-0.5); Immature Platelet Fraction Pct 3.7 % (0.9-11.2); Lymphocytes Absolute Auto 0.92 K/mm3 (0.9-3.2); Lymphocytes Percent Auto 8.7 % (18.3-44.2); Mean Corpuscular HGB Conc 30.7 g/dl (32-36); Mean Corpuscular Hemoglobin 27.8 pg (26-34); Mean Corpuscular Volume 90.8 fl (80-100); Mean Platelet Volume 8.8 fl (7.4-10.4); Monocytes Percent Auto 9.6 % (2.6-8.5); Neutrophils Absolute Auto 8.6 K/mm3 (1.3-6.7); Neutrophils Percent Auto 80.5 % (45.5-73.1); Platelet Count Result 93 k/mm3 (150-375); Red Blood Count 4.13 M/mm3 (4.2-5.4); Red Cell Distribution Width 16.6 % (11.5-14.5); White Blood Count 10.6 K/mm3 (4.5-10.0)
[2024-12-13 12:29] LABS: Alanine Aminotransferase 50 U/L (6-35); Albumin Level 4.7 g/dL (3.5-5.1); Alkaline Phosphatase 53 U/L (38-126); Anion Gap 15 mmol/L (4-12); Aspartate Amino Transferase 38 U/L (14-36); Bilirubin,Total 4.3 mg/dL (0.2-1.3); Blood Urea Nitrogen 75 mg/dL (7-17); Calcium 10.3 mg/dL (8.4-10.2); Carbon Dioxide 22 mmol/L (22-30); Chloride 90 mmol/L (98-107); Estimated CRCL calculation 26 ml/min; Estimated Glomerular Filt Rate 20; Glucose 76 mg/dL (65-110); Phosphorus 3.4 mg/dL (2.5-4.5); Potassium 4.9 mmol/L (3.4-5.0); Sodium 127 mmol/L (137-145); Total Protein 7.3 g/dL (6.3-8.2)
--- NOTE | 2024-12-13 12:42 | P.PNINT_ITS ---
Progress Note: A&P Assessment and Plan (1) Acute exacerbation of CHF (congestive heart failure): Code(s): I50.9 - Heart failure, unspecified Status: Acute Assessment and Plan: Patient has history of congestive heart failure. Echo in 2020 showed EF 20-25% she had a recent echocardiogram which showed 10-15% EF. . She had a negative cardiac catheterization as per Cardiology records 12/12: Discuss with Cardiology, continue dobutamine at 5 mcg/kg/min, on Bumex to 1 mg IV q.12 hours, also started on losartan 12.5 mg q.day -12/13: Discussed with Cardiology and Nephrology. Patient remains on dobutamine and Bumex with low urine output, cardiology recommended advanced [facility] failure center which may benefit patient more given her age. Patient may also require CRRT which we are unable to do at this institution, nephrology also agrees with this antibiotics have been 12/05/2024: Echocardiogram Summary 1. Four-chamber dilated cardiomyopathy. 2. Profound left and right ventricular systolic dysfunction ejection fraction 10-15%. 3. Mild MR resulting from annular dilation. 4. At least moderate pulmonary hypertension based on tricuspid regurgitant velocity After discussion with Cardiology patient was started on dobutamine for post to inotropic effect to allow diuresis in light of kidney injury Continue dobutamine and Lasix and albumin (2) Shortness of breath: Code(s): R06.02 - Shortness of breath Status: Acute Assessment and Plan: Patient presented with shortness of breath without history of fever and dry cough Likely secondary to congestive heart failure, cardiogenic shock and presented with AFib with RVR. She remains on 2 L nasal cannula with which she takes at home She does not appear in any respiratory distress. Exam as above Chest x-ray this morning shows pulmonary edema She has normal WBC and is afebrile. Antibiotics were discontinued (3) Non-ST elevation PA (NSTEMI): Code(s): I21.4 - Non-ST elevation (NSTEMI) myocardial infarction Status: Acute Assessment and Plan: Mild elevation in troponin with no chest pain. EKG reviewed Patient presented with AFib with RVR As per Cardiology, patient had a cardiac catheterization in recent past which was negative any coronary disease Patient has not been on anticoagulation as an outpatient due to history of frequent and significant nose bleeds. Patient was started on heparin drip for AFib with RVR and closely monitor which was switched to Eliquis -Eliquis currently on hold due to low platelets, -if hemoglobins platelets remain stable will restart Eliquis in a.m. Continue statin Not on beta-saba Rian or ARB due to low blood pressure and elevated creatinine (4) Pneumonia: Code(s): J18.9 - Pneumonia, unspecified organism Status: Acute Assessment and Plan: See above (5) Hyperlipidemia: Code(s): E78.5 - Hyperlipidemia, unspecified Status: Acute Assessment and Plan: Continue atorvastatin (6) Elevated serum creatinine: Code(s): R79.89 - Other specified abnormal findings of blood chemistry Status: Acute Assessment and Plan: Last recorded creatinine was 1.5 in 2022 presented with creatinine of 2.66. Two weeks ago creatinine was 2.18 I suspect patient has chronic kidney disease and may have acute kidney injury, likely low-flow States from cardiogenic shock and acute on chronic heart failure, Renal ultrasound showed medical renal disease CK minimally elevated Betts and accurate I&Os Nephrology evaluated the patient and following will defer further workup for renal failure to Nephrology Started on Bumex infusion, continue albumin Creatinine worsened to 2.25 this morning Monitor urine output electrolytes and creatinine (7) Lower extremity edema: Code(s): R60.0 - Localized edema Status: Acute Assessment and Plan: Likely secondary to congestive heart failure and kidney dysfunction Diuresis as above Lower extremity Dopplers negative for DVT (8) Atrial fibrillation with RVR: Code(s): I48.91 - Unspecified atrial fibrillation Status: Acute Assessment and Plan: Presented with AFib with RVR. Not on any antiplatelet or anticoagulation as an outpatient Patient was started on amiodarone infusion at the time of admission as patient blood pressure was low for rate control Echo ordered and reviewed Patient does not take aspirin due to history of allergy. 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 I spoke to patient and discussed risks and benefits. W -status post control infusion, was started on Eliquis which is currently on hold due to thrombocytopenia Amiodarone infusion was discontinued as patient has converted to sinus rhythm. Patient now on p.o. amiodarone per Cardiology Patient continues to be in sinus rhythm with PACs. Monitor (9) Cardiogenic shock: Code(s): R57.0 - Cardiogenic shock Status: Acute Assessment and Plan: Continue dobutamine for ionotropic support. Levophed weaned off The patient's cortisol level was low hence started on hydrocortisone stress dose -status post steroids (10) Electrolyte abnormality: Code(s): E87.8 - Other disorders of electrolyte and fluid balance, not elsewhere classified Status: Acute Assessment and Plan: Potassium improved after replacement (11) Hypothyroidism: Code(s): E03.9 - Hypothyroidism, unspecified Status: Acute Assessment and Plan: High TSH with low T3 Continue levothyroxine (12) Elevated LFTs: Code(s): R79.89 - Other specified abnormal findings of blood chemistry Status: Acute Assessment and Plan: Likely related to low flow state/vascular congestion -right upper quadrant ultrasound has been ordered -continue to monitor Plan DVT prophylaxis -SCDs, no chemoprophylaxis due to thrombocytopenia Stress ulcer prophylaxis: Protonix Nutrition -heart healthy diet Code Status -patient wishes to be DNR/DNI she does not want to go on a ventilator or receive CPR in the event of cardiac arrest. She states she does not have any family member in town. She is single and has been estranged from her children. Most of her relatives live in [place] Total Critical Care Time - 32 minutes 12/13: Patient has been accepted to [facility] by Dr. Lupillo Ferreira. She will be transferred once they have a bed available Due to a high probability of clinically significant, life threatening deterioration, the patient required my highest level of preparedness to int ervene emergently and I personally spent this critical care time directly and personally managing the patient. This critical care time included obtaining a history; examining the patient; pulse oximetry; ordering and review of studies; arranging urgent treatment with development of a management plan; evaluation of patient's response to treatment; frequent reassessment; and discussions with other providers. It was exclusive of separately billable procedures and treating other patients and teaching time. Please see Assessment and Plan section and the rest of the note for further information on patient assessment and treatment Subjective Date/time seen: 12/13/24 12:42 Interval history: Reason for consult: Cardiogenic shock, acute on chronic systolic heart failure, atrial fibrillation with RVR, acute renal failure likely low flow state 12/13/2024: Patient seen and examined the ICU, remains on dobutamine at 5 mcg/kg/min, urine output has been low on Bumex 1 mg q.12 hours. Patient denies any chest pain, nausea, vomiting, abdominal pain. She does complain of sh ortness of breath today on slight exertion and also feels that her legs are more swollen.. Blood pressures have remained stable, off vasopressors. Worsening renal function Review of Systems Review of Systems: All systems reviewed & are unremarkable except as noted in HPI and below (HPI) Exam Narrative: General: Pt is alert awake and in NAD Lungs/Chest: Trachea central Clear BS B/L, few crackles at the bases right more than left. No respiratory distress, no use of accessory muscles, no significant wheezing Cardiac: Currently in sinus rhythm, rate controlled, S1-S2 is normal Circulation: Pedal pulses are intact and symmetrical. Abdomen: Normal bowel sounds.. Soft. NT. ND. Extremities: Bilateral lower extremity pitting edema present :. Betts catheter in place Neurologic: Follows commands. Moves all 4 extremities PERRL AO x3 Skin: Intertrigo in the inguinal folds Objective Data Vital Signs Vital Signs: Vital Signs - 24 hr 12/12/24 14:00 12/12/24 14:00 12/12/24 14:00 Temperature 98.1 F Pulse Rate 72 72 72 Respiratory Rate 24 H Blood Pressure 98/86 L 98/86 L Pulse Oximetry 100 Oxygen Delivery Oxygen Flow Rate Fraction of Inspired Oxygen 12/12/24 14:53 12/12/24 14:53 12/12/24 16:00 Temperature Pulse Rate 76 76 76 Respiratory Rate 22 H Blood Pressure 101/63 101/63 Pulse Oximetry 100 Oxygen Delivery Nasal Cannula Oxygen Flow Rate 2 Fraction of Inspired Oxygen 28 12/12/24 16:00 12/12/24 16:00 12/12/24 16:00 Temperature 97.8 F Pulse Rate 76 76 76 Respiratory Rate 22 H Blood Pressure 116/73 116/73 Pulse Oximetry 100 Oxygen Delivery Oxygen Flow Rate Fraction of Inspired Oxygen 12/12/24 18:00 12/12/24 18:00 12/12/24 18:00 Temperature Pulse Rate 81 77 76 Respiratory Rate 22 H Blood Pressure 98/64 L 98/64 L Pulse Oximetry 98 Oxygen Delivery Oxygen Flow Rate Fraction of Inspired Oxygen 12/12/24 20:00 12/12/24 20:00 12/12/24 20:00 Temperature 98.3 F Pulse Rate 78 78 75 Respiratory Rate 22 H 16 Blood Pressure 113/65 Pulse Oximetry 98 95 Oxygen Delivery Nasal Cannula Oxygen Flow Rate 2 Fraction of Inspired Oxygen 12/12/24 20:00 12/12/24 22:00 12/12/24 22:00 Temperature 97.6 F Pulse Rate 74 72 77 Respiratory Rate 20 Blood Pressure 113/65 104/63 Pulse Oximetry 96 Oxygen Delivery Oxygen Flow Rate Fraction of Inspired Oxygen 12/12/24 22:44 12/12/24 22:44 12/13/24 00:00 Temperature Pulse Rate 72 72 78 Respiratory Rate 20 Blood Pressure 114/77 114/77 Pulse Oximetry 96 Oxygen Delivery Nasal Cannula Oxygen Flow Rate 2 Fraction of Inspired Oxygen 12/13/24 00:00 12/13/24 00:00 12/13/24 00:00 Temperature 97.6 F Pulse Rate 78 73 73 Respiratory Rate 21 H Blood Pressure 106/62 106/62 Pulse Oximetry 97 Oxygen Delivery Oxygen Flow Rate Fraction of Inspired Oxygen 12/13/24 02:00 12/13/24 02:00 12/13/24 02:00 Temperature 97.4 F L Pulse Rate 73 73 73 Respiratory Rate 16 Blood Pressure 111/86 111/86 Pulse Oximetry 100 Oxygen Delivery Oxygen Flow Rate Fraction of Inspired Oxygen 12/13/24 04:00 12/13/24 04:00 12/13/24 04:00 Temperature Pulse Rate 68 68 68 Respiratory Rate 18 Blood Pressure 116/66 Pulse Oximetry 100 Oxygen Delivery Nasal Cannula Oxygen Flow Rate 2 Fraction of Inspired Oxygen 12/13/24 04:00 12/13/24 06:00 12/13/24 06:00 Temperature 97.4 F L 97.4 F L Pulse Rate 68 78 78 Respiratory Rate 18 21 H Blood Pressure 116/66 97/35 L Pulse Oximetry 100 100 Oxygen Delivery Oxygen Flow Rate Fraction of Inspired Oxygen 12/13/24 07:00 12/13/24 07:15 12/13/24 08:00 Temperature 97.1 F L Pulse Rate 76 76 75 Respiratory Rate 24 H Blood Pressure 97/35 L 97/35 L 111/69 Pulse Oximetry 100 Oxygen Delivery Oxygen Flow Rate Fraction of Inspired Oxygen 12/13/24 08:00 12/13/24 08:00 12/13/24 08:00 Temperature Pulse Rate 75 78 75 Respiratory Rate 24 H Blood Pressure 111/69 Pulse Oximetry 100 Oxygen Delivery Nasal Cannula Oxygen Flow Rate 2 Fraction of Inspired Oxygen 28 12/13/24 08:01 12/13/24 09:22 12/13/24 10:00 Temperature 97.6 F Pulse Rate 78 84 Respiratory Rate 19 Blood Pressure 107/68 Pulse Oximetry 100 100 Oxygen Delivery Nasal Cannula Oxygen Flow Rate 2.5 Fraction of Inspired Oxygen 12/13/24 10:00 12/13/24 10:00 12/13/24 12:00 Temperature 97.7 F Pulse Rate 79 79 76 Respiratory Rate 21 H Blood Pressure 107/68 106/62 Pulse Oximetry 96 Oxygen Delivery Oxygen Flow Rate Fraction of Inspired Oxygen 12/13/24 12:00 12/13/24 12:00 Temperature Pulse Rate 79 76 Respiratory Rate 21 H Blood Pressure Pulse Oximetry 96 Oxygen Delivery Nasal Cannula Oxygen Flow Rate 2 Fraction of Inspired Oxygen 28 Intake/Output Intake/Output: Intake & Output 12/10/24 12/11/24 12/12/24 12/13/24 23:59 23:59 23:59 23:59 Intake Total 2300.5 1449.8 2211.8 753.3 Output Total 275 700 825 425 Balance 2025.5 749.8 1386.8 328.3 Meds/Results Medications: Active Medications Generic Name Dose Route Start Last Admin Trade Name Freq PRN Reason Stop Dose Admin Acetaminophen 650 mg 12/04/24 22:10 Acetaminophen 325 Mg Tablet PO Q4H PRN Mild Pain (1-3) or Fever Hydrocodone Bitart/Acetaminophen 1 tab 12/05/24 01:36 12/12/24 21:00 Hydrocodone/Acetaminophen (*Crx) 5-325 Mg Tablet PO 1 tab Q8H PRN Administration pain 7-10 Albuterol/Ipratropium 3 ml 12/06/24 08:00 12/09/24 21:08 Ipratropium 0.5 Mg/Albuterol Sulfate 2.5 Mg Ampul.Neb 3 Ml INHALATION 3 ml Q6HRT PRN Administration wheezine Amiodarone HCl 400 mg 12/07/24 09:15 12/13/24 08:01 Amiodarone Hcl 200 Mg Tablet PO 400 mg DAILY@0800 KRISTEN Administration Apixaban 5 mg 12/09/24 21:00 12/09/24 20:20 Apixaban 5 Mg Tablet PO 5 mg Q12HR KRISTEN Administration Atorvastatin Calcium 20 mg 12/05/24 09:00 12/13/24 08:46 Atorvastatin 20 Mg Tablet PO 20 mg DAILY KRISTEN Administration Bumetanide 1 mg 12/12/24 21:00 12/12/24 21:00 Bumetanide Inj 1 Mg/4 Ml Vial IV PUSH 1 mg Q12H KRISTEN Administration Docusate Sodium 100 mg 12/10/24 09:00 12/13/24 08:46 Docusate Sodium 100 Mg Capsule PO 100 mg Q12HR KRISTEN Administration Dobutamine HCl/Dextrose 250 mg in 250 mls @ 30.3 mls/hr 12/06/24 07:55 12/13/24 10:00 Dobutamine 250 Mg/D5w 250 Ml IV CONT 5 mcg/kg/min .Q8H16M KRISTEN 30.3 mls/hr Infusion 5 MCG/KG/MIN Levothyroxine Sodium 50 mcg 12/08/24 08:15 12/13/24 06:08 Levothyroxine Sodium 50 Mcg Tablet PO 50 mcg DAILY@0630 KRISTEN Administration Losartan Potassium 12.5 mg 12/13/24 09:00 12/13/24 08:46 Losartan Potassium 12.5 Mg Tablet PO 12.5 mg DAILY KRISTEN Administration Pantoprazole Sodium 40 mg 12/10/24 21:00 12/13/24 08:46 Pantoprazole Sodium Iv 40 Mg Vial IV PUSH 40 mg Q12HR KRISTEN Administration Polyethylene Glycol 17 gm 12/10/24 09:00 12/13/24 08:46 Polyethylene Glycol 3350 17 Gm Powd.Pack PO 17 gm QAM KRISTEN Administration Fluticasone/Salmeterol 2 puff 12/05/24 08:00 12/13/24 09:23 Fluticasone/Salmeterol 115-21 Mcg Inhaler 1 Puff INHALATION Not Given Q12HRT KRISTEN Sodium Chloride 10 ml 12/05/24 14:00 12/13/24 06:08 Central Line Flush IV PUSH 10 ml Q8HR KRISTEN Administration Sodium Chloride 10 ml 12/05/24 11:12 Central Line Flush IV PUSH PRN PRN with TPN bag changes Sodium Chloride 20 ml 12/05/24 11:12 12/10/24 05:36 Central Line Flush IV PUSH 20 ml PRN PRN Administration after blood draws Radiology Results: ITS Impressions Renal Ultrasound 12/05/24 15:17 IMPRESSION: No hydronephrosis or renal calculi. Findings suggesting medical renal disease. Chest CT 12/05/24 15:24 IMPRESSION: Findings consistent with pulmonary edema with a small right-sided pleural effusion. Additional findings worrisome for pulmonary hypertension, as detailed above. Trace anasarca. Intra-abdominal ascites Venous Doppler Study 12/05/24 16:06 IMPRESSION: Negative bilateral lower extremity venous US. No deep vein thrombosis. Chest X-Ray 12/12/24 05:36 Impression: Probable mild pulmonary edema pattern. Right-sided PICC line. Stable cardiomegaly with pacemaker device. Labs Labs: Laboratory Results - last 24 hr 12/10/24 12/13/24 16:23 11:16 WBC 10.6 H RBC 4.13 L Hgb 11.5 L Hct 37.5 MCV 90.8 MCH 27.8 MCHC 30.7 L RDW 16.6 H Plt Count 93 L MPV 8.8 Immature Gran % (Auto) 0.4 Neut % (Auto) 80.5 H Lymph % (Auto) 8.7 L [place] % (Auto) 9.6 H Eos % (Auto) 0.8 Baso % (Auto) 0.0 L Lymph # (Auto) 0.92 [place] # (Auto) 1.0 H Eos # (Auto) 0.1 Baso # (Auto) 0.0 Abs Immat Gran (auto) 0.04 H Absolute Neuts (auto) 8.6 H Absolute Nucleated RBC 0.000 Nucleated RBC % 0.0 % Immature Plt Fraction 3.7 Sodium 127 L Potassium 4.9 Chloride 90 L Carbon Dioxide 22 Anion Gap 15 H BUN 75 H D Creatinine 2.52 H Estim Creat Clear Calc 26 Estimated GFR 20 L Glucose 76 Calcium 10.3 H Phosphorus 3.4 Total Bilirubin 4.3 H AST 38 H ALT 50 H Alkaline Phosphatase 53 Total Protein 7.3 Albumin 4.7 Urine Immunofixation
--- NOTE | 2024-12-13 22:11 | PC.NURSE ---
[place] [id number] bed 2 [place] [facility] SA[facility]
[2024-12-14 15:23] LABS: Immunofixation, Serum Normal pattern.
--- NOTE | 2024-12-25 13:24 | PM.TDS ---
Transfer Discharge Sum: Prov Provider Date of admission: 12/04/24 22:10 Primary care physician: Soumya Araujo, MD Admitting clinician: Namita Glover DO Consults: 12/04/24 Consult to Physician Routine Comment: Consulting Provider: Erickson Foote Reason for consultation: CHF exacerbation Has provider been notified: Yes Consult to Physician Routine Comment: Consulting Provider: Sofia Dyer electronic parts salesperson/MD group to consult: cardiology Dr Dyer is aware of the pt. consult Reason for consultation: CHF exacerbation, requiring amio drip Has provider been notified: Yes 12/05/24 Consult to Physician Routine Comment: Spoke with provider 12/05 @ 0811 Consulting Provider: Yue Adams electronic parts salesperson/MD group to consult: Nephrology Reason for consultation: SANDRA, CKD Has provider been notified: Yes Attending physician on discharge: Glenn Piña Discharging clinician: Glenn Piña Anticipated date of transfer: 12/13/24 Receiving physician/facility: [facility] DS: Admitting Diagnosis Discharge Date 12/13/24 Admitting Diagnosis Reason for consult: Cardiogenic shock, acute on chronic systolic heart failure, atrial fibrillation with RVR, acute renal failure likely low flow state DS: Discharge Diagnosis Discharge Diagnosis (1) Acute exacerbation of CHF (congestive heart failure): Code(s): I50.9 - Heart failure, unspecified Status: Acute Assessment and Plan: Patient has history of congestive heart failure. Echo in 2020 showed EF 20-25% she had a recent echocardiogram which showed 10-15% EF. . She had a negative cardiac catheterization as per Cardiology records 12/12: Discuss with Cardiology, continue dobutamine at 5 mcg/kg/min, on Bumex to 1 mg IV q.12 hours, also started on losartan 12.5 mg q.day -12/13: Discussed with Cardiology and Nephrology. Patient remains on dobutamine and Bumex with low urine output, cardiology recommended advanced heart failure center which may benefit patient more given her age. Patient may also require CRRT which we are unable to do at this institution, nephrology also agrees with this antibiotics have been 12/05/2024: Echocardiogram Summary 1. Four-chamber dilated cardiomyopathy. 2. Profound left and right ventricular systolic dysfunction ejection fraction 10-15%. 3. Mild MR resulting from annular dilation. 4. At least moderate pulmonary hypertension based on tricuspid regurgitant velocity After discussion with Cardiology patient was started on dobutamine for post to inotropic effect to allow diuresis in light of kidney injury Continue dobutamine and Lasix and albumin (2) Shortness of breath: Code(s): R06.02 - Shortness of breath Status: Acute Assessment and Plan: Patient presented with shortness of breath without history of fever and dry cough Likely secondary to congestive heart failure, cardiogenic shock and presented with AFib with RVR. She remains on 2 L nasal cannula with which she takes at home She does not appear in any respiratory distress. Exam as above Chest x-ray this morning shows pulmonary edema She has normal WBC and is afebrile. Antibiotics were discontinued (3) Non-ST elevation IA (NSTEMI): Code(s): I21.4 - Non-ST elevation (NSTEMI) myocardial infarction Status: Acute Assessment and Plan: Mild elevation in troponin with no chest pain. EKG reviewed Patient presented with AFib with RVR As per Cardiology, patient had a cardiac catheterization in recent past which was negative any coronary disease Patient has not been on anticoagulation as an outpatient due to history of frequent and significant nose bleeds. Patient was started on heparin drip for AFib with RVR and closely monitor which was switched to Eliquis -Eliquis currently on hold due to low platelets, -if hemoglobins platelets remain stable will restart Eliquis in a.m. Continue statin Not on beta-saba Rian or ARB due to low blood pressure and elevated creatinine (4) Pneumonia: Code(s): J18.9 - Pneumonia, unspecified organism Status: Acute Assessment and Plan: See above (5) Hyperlipidemia: Code(s): E78.5 - Hyperlipidemia, unspecified Status: Acute Assessment and Plan: Continue atorvastatin (6) Elevated serum creatinine: Code(s): R79.89 - Other specified abnormal findings of blood chemistry Status: Acute Assessment and Plan: Last recorded creatinine was 1.5 in 2022 presented with creatinine of 2.66. Two weeks ago creatinine was 2.18 I suspect patient has chronic kidney disease and may have acute kidney injury, likely low-flow States from cardiogenic shock and acute on chronic heart failure, Renal ultrasound showed medical renal disease CK minimally elevated Betts and accurate I&Os Nephrology evaluated the patient and following will defer further workup for renal failure to Nephrology Started on Bumex infusion, continue albumin Creatinine worsened to 2.25 this morning Monitor urine output electrolytes and creatinine (7) Lower extremity edema: Code(s): R60.0 - Localized edema Status: Acute Assessment and Plan: Likely secondary to congestive heart failure and kidney dysfunction Diuresis as above Lower extremity Dopplers negative for DVT (8) Atrial fibrillation with RVR: Code(s): I48.91 - Unspecified atrial fibrillation Status: Acute Assessment and Plan: Presented with AFib with RVR. Not on any antiplatelet or anticoagulation as an outpatient Patient was started on amiodarone infusion at the time of admission as patient blood pressure was low for rate control Echo ordered and reviewed Patient does not take aspirin due to history of allergy. Patient states that she used to be on Eliquis in the past but it was discontinued due to frequent severe nosebleed Discussed with grocery clerk and she recommends starting anticoagulation. I spoke to patient and discussed risks and benefits. W -status post control infusion, was started on Eliquis which is currently on hold due to thrombocytopenia Amiodarone infusion was discontinued as patient has converted to sinus rhythm. Patient now on p.o. amiodarone per Cardiology Patient continues to be in sinus rhythm with PACs. Monitor (9) Cardiogenic shock: Code(s): R57.0 - Cardiogenic shock Status: Acute Assessment and Plan: Continue dobutamine for ionotropic support. Levophed weaned off The patient's cortisol level was low hence started on hydrocortisone stress dose -status post steroids (10) Electrolyte abnormality: Code(s): E87.8 - Other disorders of electrolyte and fluid balance, not elsewhere classified Status: Acute Assessment and Plan: Potassium improved after replacement (11) Hypothyroidism: Code(s): E03.9 - Hypothyroidism, unspecified Status: Acute Assessment and Plan: High TSH with low T3 Continue levothyroxine (12) Elevated LFTs: Code(s): R79.89 - Other specified abnormal findings of blood chemistry Status: Acute Assessment and Plan: Likely related to low flow state/vascular congestion -right upper quadrant ultrasound has been ordered -continue to monitor Plan DVT prophylaxis -SCDs, no chemoprophylaxis due to thrombocytopenia Stress ulcer prophylaxis: Protonix Nutrition -heart healthy diet Code Status -patient wishes to be DNR/DNI she does not want to go on a ventilator or receive CPR in the event of cardiac arrest. She states she does not have any family member in town. She is single and has been estranged from her children. Most of her relatives live in [place] Total Critical Care Time - 32 minutes 12/13: Patient has been accepted to [facility] by Dr. Lupillo Ferreira. She will be transferred once they have a bed available Due to a high probability of clinically significant, life threatening deterioration, the patient required my highest level of preparedness to intervene emergently and I personally spent this critical care time directly and personally managing the patient. This critical care time included obtaining a history; examining the patient; pulse oximetry; ordering and review of studies; arranging urgent treatment with development of a management plan; evaluation of patient's response to treatment; frequent reassessment; and discussions with other providers. It was exclusive of separately billable procedures and treating other patients and teaching time. Please see Assessment and Plan section and the rest of the note for further information on patient assessment and treatment Transfer Discharge Sum: Med Medications Active and Home Medications: Home Medications albuterol sulfate 90 mcg/actuation aerosol inhaler (Ventolin HFA) 90 mcg inhalation QID 09/23/20 [History Confirmed 12/05/24] atorvastatin 20 mg tablet 20 mg PO HS 09/23/20 [History Confirmed 12/05/24] cetirizine 10 mg tablet 10 mg PO DAILY 09/23/20 [History Confirmed 12/05/24] cyclobenzaprine 10 mg tablet 10 mg PO TID PRN Pain, Moderate 09/23/20 [History Confirmed 12/05/24] ergocalciferol (vitamin D2) 1,250 mcg (50,000 unit) capsule (Vitamin D2) 1,250 mcg PO DAILY 09/23/20 [History Confirmed 12/05/24] famotidine 40 mg tablet 40 mg PO DAILY 09/23/20 [History Confirmed 12/05/24] montelukast 10 mg tablet 10 mg PO DAILY 09/23/20 [History Confirmed 12/05/24] budesonide-formoterol HFA 160 mcg-4.5 mcg/actuation aerosol inhaler (Symbicort) 2 puff inhalation Q12HRT #10.2 grams 09/26/20 [Rx Confirmed 12/05/24] empagliflozin 10 mg tablet (Jardiance) 10 mg PO DAILY 12/05/24 [History Confirmed 12/05/24] furosemide 40 mg tablet 80 mg PO DAILY 12/05/24 [History Confirmed 12/05/24] lidocaine 5 % topical patch 1 patch topical DAILY 12/05/24 [History Confirmed 12/05/24] losartan 25 mg tablet 25 mg PO DAILY 12/05/24 [History Confirmed 12/05/24] nystatin 100,000 unit/gram topical powder 1 applic topical DAILY PRN skin irritation 12/05/24 [History Confirmed 12/05/24] Transfer Discharge Sum: Hosp Hospital Course Hospital course: Varun Sanabira is a 54 year old female with past medical history of congestive heart failure with decreased ejection fraction, asthma, hyperlipidemia, obesity, AFib and noncompliance presented to ER last night with chief complaint of shortness of breath. Patient was admitted to [facility] in 2020 when she was diagnosed with congestive heart failure. She was given LifeVest and was supposed to follow-up with cardiology as an outpatient for evaluation for ischemia. Patient has never seen a grocery clerk since 2020 she. She was admitted at [facility] 1 year ago with edema. She states that she has never had any cardiac evaluation. She used to be on Eliquis which was stopped due to frequent nose bleeds. She states she is allergic to aspirin and is not on any blood thinner or antiplatelet agent. She states she takes her cholesterol pill and Lasix in the morning. Leg swelling is chronic and has been going on over months and has gradually worsened. Yesterday around 3:00 p.m. patient states that she started feeling short of breath. She did have cough but does dry. She denies any fever. She denies any nausea vomiting abdominal pain diarrhea hematuria hematochezia melena dysuria.. She has noticed decrease in urine output. She is not sure of her kidney function. She denies any chest pain. She states she does have palpitations intermittently and yesterday she was having some palpitations at the time of shortness of breath.. All other systems were reviewed and were negative. She wears oxygen at 2 L Workup in the ER showed no leukocytosis or anemia. Normal platelet count. Coagulation panel slightly prolonged with an elevated INR 1.8. Chemistry panel shows sodium 127, chloride 95, BUN 36 and creatinine 2.66 worsening from baseline with an elevated BNP of >[id number] likely hypervolemic hyponatremia. She has an elevated troponin of 0.10 which is slightly worse than previous baseline. EKG showed a flutter with RVR. She had elevated creatinine On exam patient had a extensive bilateral lower extremity edema Chest x-ray shows air bronchograms in the left hilum concerning for early infiltrate. During the course of her hospital stay recent echocardiogram showed EF of 10-15%. She had a negative cardiac catheterization per cardiology records. Was on dobutamine and Bumex, also started on losartan. Patient continued to have low urine output despite trial of dobutamine and Bumex. Discussed with Cardiology and Nephrology and both recommended [facility] which may benefit the patient. The patient was accepted by [facility] by Dr. Lupillo Ferreira. Patient was transferred to [facility] on 12/13/2024 Patient Condition: Stable Time Spent with Patient Time attestation: Total time spent providing and/or coordinating transfer services: 22 minutes Exam Narrative: General: Pt is alert awake and in NAD Lungs/Chest: Trachea central Clear BS B/L, few crackles at the bases right more than left. No respiratory distress, no use of accessory muscles, no significant wheezing Cardiac: Currently in sinus rhythm, rate controlled, S1-S2 is normal Circulation: Pedal pulses are intact and symmetrical. Abdomen: Normal bowel sounds.. Soft. NT. ND. Extremities: Bilateral lower extremity pitting edema present :. Betts catheter in place Neurologic: Follows commands. Moves all 4 extremities PERRL AO x3 Skin: Intertrigo in the inguinal folds
== END 2024-12-13 22:15 | disposition home health service (06) | DRG 470 ==
LOC: ANHED 21:22 → ANHICU 23:04
PROVIDERS: Emergency Medicine; Internal Medicine; Internal Medicine Interventional Cardiology; Internal Medicine Nephrology; Admitting Provider Internal Medicine; Emergency Provider Student in an Organized Health Care Education/Training Program; PCP Family Medicine; Visit Provider Internal Medicine
DX: I12.0 Hypertensive chronic kidney disease with stage 5 chronic kidney disease or end stage renal disease (principal); J44.9 Chronic obstructive pulmonary disease, unspecified; I50.23 Acute on chronic systolic (congestive) heart failure; J18.9 Pneumonia, unspecified organism; Z99.81 Dependence on supplemental oxygen; I25.2 Old myocardial infarction; Z79.84 Long term (current) use of oral hypoglycemic drugs; K21.9 Gastro-esophageal reflux disease without esophagitis; E55.9 Vitamin D deficiency, unspecified; E78.5 Hyperlipidemia, unspecified; M19.90 Unspecified osteoarthritis, unspecified site; G89.29 Other chronic pain; M54.9 Dorsalgia, unspecified; J45.909 Unspecified asthma, uncomplicated; Z98.41 Cataract extraction status, right eye; Z98.42 Cataract extraction status, left eye; Z96.1 Presence of intraocular lens; Z95.810 Presence of automatic (implantable) cardiac defibrillator; E87.1 Hypo-osmolality and hyponatremia; N17.9 Acute kidney failure, unspecified; Z66 Do not resuscitate; E66.9 Obesity, unspecified; Z91.199 Patient's noncompliance with other medical treatment and regimen due to unspecified reason; N18.32 Chronic kidney disease, stage 3b; I48.0 Paroxysmal atrial fibrillation; I13.0 Hypertensive heart and chronic kidney disease with heart failure and stage 1 through stage 4 chronic kidney disease, or unspecified chronic kidney disease; I42.8 Other cardiomyopathies; I95.9 Hypotension, unspecified; R57.0 Cardiogenic shock; E03.9 Hypothyroidism, unspecified
CPT/HCPCS: 36415; 36569; 71045; 71046; 71250; 76705; 76775; 80053; 80202; 81001; 82533; 82550; 82565; 82570; 83605; 83735; 83880; 83883; 83930; 83935; 84100; 84145; 84155; 84156; 84165; 84166; 84300; 84439; 84443; 84480; 84484; 84540; 85025; 85027; 85055; 85610; 85730; 85999; 86334; 86335; 87040; 87641; 92610; 93005; 93970; 94002; 94640; 96365; 96367; 96375; 99285; A9270; C1751; C8929; J0282; J1250; J1644; J1650; J1720; J1938; J1939; J1956; J2003; J2470; J3370; J3475; J7060; P9047; Q9957